=== PATIENT | female | born 1980 | race Caucasian/White ===

== ENCOUNTER 2018-05-03 07:46 | Emergency (ER) | payer OTHER, SELFPAY ==
[2018-05-03 07:57] VITALS: BP 127/98; PULSE 72; RESP 14; TEMP 36.4; O2SAT 97
--- NOTE | 2018-05-03 08:40 | DI.RAD_ITS ---
SYMPTOMS/DIAGNOSIS: PAIN, SWELLING, INJURY RIGHT FOOT: There is some mild soft tissue swelling over the dorsolateral portion of the foot. No bony or joint abnormality is demonstrated. RIGHT ANKLE There is no evidence of a fracture or dislocation.
--- NOTE | 2018-05-03 08:42 | W.ED.GENAD ---
Discharge Plan Disposition Patient Disposition: HOME Discharge Details Chief Complaint: Orthopedic Clinical Impression: Sprain of foot, right Primary Care Provider: Nadine Mcduffie ED Provider: Stephane Ruiz Home Meds and New Rx's Prescriptions: Continue ibuprofen 200 MG tablet 400 mg PO PRN PRNRF: 0 venlafaxine 225 MG tablet extended release 24hr 150 mg PO DAILY RF: 0 levothyroxine 25 MCG tablet 50 mcg PO DAILY RF: 0 lamotrigine [Lamictal] 150 mg Tablet 150 mg PO BID RF: 0 glatiramer [Copaxone] 40 mg/mL Syringe 40 mg SUBCUT DIRECTED RF: 0 Discharge Instructions Instructions: Foot Sprain (ED) Additional Instructions: I suspect you sustained sprain to right foot and ankle. Please use walking boot and walker for the next 1 week. Take ibuprofen 600 mg every 6 hours as needed for pain. Take Tylenol 650 mg every 6 hours as needed for pain. If pain persists or worsens, please follow-up with orthopedics. Return to the ER for any worsening or new concerning symptoms. Referrals: [facility] [Provider Group] Discharge Data Discharge Date/Time-TO BE ENTERED AT DEPARTURE: 05/03/18 10:25 Medical Decision Making 37yo f with MS and intermittent right lower externally weakness, here with right ankle injury after fall last night. Neurovascular intact. Tender to palpation dorsal lateral foot. No significant tenderness over fifth metatarsal. Some ankle swelling and tenderness lateral malleolus. No proximal fibular tenderness. Plan to treat pain with Tylenol. Patient took ibuprofen prior to arrival. xray of right ankle and foot interpreted by radiology: negative for fracture. Suspect sprain of foot/ankle. Will place in walking boot. Given patient's chronic right-sided weakness, she is not a candidate for crutches. She would benefit from walker to assist with this injury. I will have PT see the patient here in the emerge department to assist her with activating to walker use. HPI General Mode of arrival: ambulatory. Date/Time Provider Initiated Documentation: 05/03/18 08:04. Limitations to Documentation: no limitations. Information obtained by: patient. HPI Narrative: 37yo f with MS and intermittent right lower externally weakness, here with right ankle injury after fall last night. Pain is moderate. Pain worse on ambulation. Pain localized to right lateral ankle and foot. No assoc numbness. Related Data Home Medications Medication Instructions Recorded Confirmed ibuprofen 400 mg PO PRN PRN 04/06/15 05/03/18 venlafaxine 150 mg PO DAILY 04/06/15 05/03/18 levothyroxine 50 mcg PO DAILY 01/30/16 05/03/18 glatiramer [Copaxone] 40 mg SUBCUT DIRECTED 05/03/18 05/03/18 lamotrigine [Lamictal] 150 mg PO BID 05/03/18 05/03/18 Allergies Allergy/AdvReac Type Severity Reaction Status Date / Time Penicillins Allergy Verified 01/30/16 13:23 Sulfa (Sulfonamide Allergy Unverified 01/30/16 07:54 Antibiotics) Opioids - Morphine Analogues AdvReac Unknown agitation Unverified 01/30/16 07:54 with narcotic pain meds clindamycin AdvReac Diarrhea Unverified 01/30/16 07:54 General Stated Complaint: Orthopedic LIZ: 4 Review of Systems Musculoskeletal Reports as per HPI Neurologic Reports as per HPI PFS Medical History Multiple sclerosis (Chronic) Social History Smoking/Tobacco Use Status: Current every day Surgical History Cholecystectomy (01/30/16) Exam Const General: cooperative and no acute distress Cardio Rate: regular rate and not tachycardic Rhythm: regular rhythm Skin General skin exam: no rashes or lesions noted Neuro General: alert, awake, oriented x3 and tone normal Extrem General: no edema Right lower extremity: lower leg Details: normal to inspection, ankle Details: tenderness Location: of the lateral malleolus, swelling Details: laterally (mild) and normal ROM and foot Details: tenderness Location: of the dorsal foot Location: laterally; not of the base of the 5th metatarsal and motor-sensory exam Details: light-touch normal Course Vital Signs Temperature 36.4 C L 05/03/18 07:57 Pulse 72 05/03/18 07:57 Respiratory Rate 14 05/03/18 07:57 Blood Pressure 127/98 H 05/03/18 07:57 Pulse Oximetry 97 05/03/18 07:57 Temperature 36.4 C L 05/03/18 07:57 Temperature Source Temporal Artery Scan 05/03/18 07:57 Pulse 72 05/03/18 07:57 Respiratory Rate 14 05/03/18 07:57 Respiratory Effort Non-Labored 05/03/18 07:58 Blood Pressure 127/98 H 05/03/18 07:57 Blood Pressure Position Sitting 05/03/18 07:57 Pulse Oximetry 97 05/03/18 07:57 Oxygen Delivery Method Room Air 05/03/18 07:57 Oxygen Flow Rate 0 05/03/18 07:57 Pain Level 6 05/03/18 08:03
--- NOTE | 2018-05-03 09:30 | PDOC.ERCMPRO ---
Care Management Progress Note 05/03-Dr. Delonte Ruiz requested assistance with a walker for Aria. Met with Aria, her Dad is here with her. Aria states she lives with her and children. She was trick or treating and tripped, fell. Aria states when she woke up this morning she could not bear weight. Aria has MS, and works full-time in [employer] in [place]. Discussed a walker. Aria is a little hesitant about a walker. She just doesn't want to use a walker, she wants to remain as independent as possible. Explained that it would be only temporary. Her dad discussed it with her as well. Aria is in agreement to try the walker. Discussed Physical Therapy coming for a one time consult to assist with walker training and height. Dr. Delonte Ruiz in agreement and will order. This CM will contact Physical Therapy to come to the ED.
--- NOTE | 2018-05-03 09:40 | CMPROGNOTE_ITS ---
Care Management Progress Note 05/03-Dr. Delonte Ruiz requested assistance with a walker for Aria. Met with Aria, her Dad is here with her. Aria states she lives with her and children. She was trick or treating and tripped, fell. Aria states when she woke up this morning she could not bear weight. Aria has MS, and works full-time in [place] in [employer]. Discussed a walker. Aria is a little hesitant about a walker. She just doesn't want to use a walker, she wants to remain as independent as possible. Explained that it would be only temporary. Her dad discussed it with her as well. Aria is in agreement to try the walker. Discussed Physical Therapy coming for a one time consult to assist with walker training and height. Dr. Delonte Ruiz in agreement and will order. This CM will contact Physical Therapy to come to the ED.
[2018-05-03] MEDS: Acetaminophen 325 MG TAB 650 MG PO (09:47)
--- NOTE | 2018-05-03 09:57 | ED.GENADUL_ITS ---
Discharge Plan Disposition Patient Disposition: HOME Discharge Details Chief Complaint: Orthopedic Clinical Impression: Sprain of foot, right Primary Care Provider: Nadine Mcduffie ED Provider: Stephane Ruiz Home Meds and New Rx's Prescriptions: Continue ibuprofen 200 MG tablet 400 mg PO PRN PRNRF: 0 venlafaxine 225 MG tablet extended release 24hr 150 mg PO DAILY RF: 0 levothyroxine 25 MCG tablet 50 mcg PO DAILY RF: 0 lamotrigine [Lamictal] 150 mg Tablet 150 mg PO BID RF: 0 glatiramer [Copaxone] 40 mg/mL Syringe 40 mg SUBCUT DIRECTED RF: 0 Discharge Instructions Instructions: Foot Sprain (ED) Additional Instructions: I suspect you sustained sprain to right foot and ankle. Please use walking boot and walker for the next 1 week. Take ibuprofen 600 mg every 6 hours as needed for pain. Take Tylenol 650 mg every 6 hours as needed for pain. If pain persists or worsens, please follow-up with orthopedics. Return to the ER for any worsening or new concerning symptoms. Referrals: [facility] [Provider Group] Discharge Data Discharge Date/Time-TO BE ENTERED AT DEPARTURE: 05/03/18 10:25 Medical Decision Making 37yo f with MS and intermittent right lower externally weakness, here with right ankle injury after fall last night. Neurovascular intact. Tender to palpation dorsal lateral foot. No significant tenderness over fifth metatarsal. Some ankle swelling and tenderness lateral malleolus. No proximal fibular tenderness. Plan to treat pain with Tylenol. Patient took ibuprofen prior to arrival. xray of right ankle and foot interpreted by radiology: negative for fracture. Suspect sprain of foot/ankle. Will place in walking boot. Given patient's chronic right-sided weakness, she is not a candidate for crutches. She would benefit from walker to assist with this injury. I will have PT see the patient here in the emerge department to assist her with activating to walker use. HPI General Mode of arrival: ambulatory . Date/Time Provider Initiated Documentation: 05/03/18 08:04 . Limitations to Documentation: no limitations . Information obtained by: patient . HPI Narrative: 37yo f with MS and intermittent right lower externally weakness, here with right ankle injury after fall last night. Pain is moderate. Pain worse on ambulation. Pain localized to right lateral ankle and foot. No assoc numbness. Related Data Home Medications Medication Instructions Recorded Confirmed ibuprofen 400 mg PO PRN PRN 04/06/15 05/03/18 venlafaxine 150 mg PO DAILY 04/06/15 05/03/18 levothyroxine 50 mcg PO DAILY 01/30/16 05/03/18 glatiramer [Copaxone] 40 mg SUBCUT DIRECTED 05/03/18 05/03/18 lamotrigine [Lamictal] 150 mg PO BID 05/03/18 05/03/18 Allergies Allergy/AdvReac Type Severity Reaction Status Date / Time Penicillins Allergy Verified 01/30/16 13:23 Sulfa (Sulfonamide Allergy Unverified 01/30/16 07:54 Antibiotics) Opioids - Morphine Analogues AdvReac Unknown agitation Unverified 01/30/16 07:54 with narcotic pain meds clindamycin AdvReac Diarrhea Unverified 01/30/16 07:54 General Stated Complaint: Orthopedic LIZ: 4 Review of Systems Musculoskeletal Reports as per HPI Neurologic Reports as per HPI PFS Medical History Multiple sclerosis (Chronic) Social History Smoking/Tobacco Use Status: Current every day Surgical History Cholecystectomy (01/30/16) Exam Const General: cooperative and no acute distress Cardio Rate: regular rate and not tachycardic Rhythm: regular rhythm Skin General skin exam: no rashes or lesions noted Neuro General: alert, awake, oriented x3 and tone normal Extrem General: no edema Right lower extremity: lower leg Details: normal to inspection, ankle Details: tenderness Location: of the lateral malleolus, swelling Details: laterally (mild ) and normal ROM and foot Details: tenderness Location: of the dorsal foot Location: laterally; not of the base of the 5th metatarsal and motor-sensory exam Details: light-touch normal Course Vital Signs Temperature 36.4 C L 05/03/18 07:57 Pulse 72 05/03/18 07:57 Respiratory Rate 14 05/03/18 07:57 Blood Pressure 127/98 H 05/03/18 07:57 Pulse Oximetry 97 05/03/18 07:57 Temperature 36.4 C L 05/03/18 07:57 Temperature Source Temporal Artery Scan 05/03/18 07:57 Pulse 72 05/03/18 07:57 Respiratory Rate 14 05/03/18 07:57 Respiratory Effort Non-Labored 05/03/18 07:58 Blood Pressure 127/98 H 05/03/18 07:57 Blood Pressure Position Sitting 05/03/18 07:57 Pulse Oximetry 97 05/03/18 07:57 Oxygen Delivery Method Room Air 05/03/18 07:57 Oxygen Flow Rate 0 05/03/18 07:57 Pain Level 6 05/03/18 08:03
--- NOTE | 2018-05-03 10:23 | PT.INIE ---
Date of service: 05/03/18 Time of Service: 10:23 PT Notes Inpatient Physical Therapy Evaluation Date: 05/03/18 Referring Doctor: Stephane Ruiz PT Orders: PT CONSULT: walker use Precautions: WBAT R LE Patient Profile/Admitting Diagnosis: Pt is a 37yr old female presenting in the Emergency Department with right ankle sprain after falling last night trick or treating PMHX: chronic right sided weakness Social History/Home Situation: Lives with and children. Baseline mobility independent gait with no deivce, indpendent with ADLS, works Equipment Owned/DME: none Subjective: Pt lying on gurney bed with R LE elevated. Agreeable to PT Consult. Objective: Mental Status: a& O x3 Pain: c/o pain right ankle not rated, reports tingling in right ankle Bed Mobility/Transfers: Supine-sit: independent Sit-stand: independent Stand-sit: independent Sit-supine: independent Gait: Pt fitted with R LE walking boot and instructed in how to don/doff boot. Pt instructed to wear walking boot with all mobility, WBAT R LE. Pt issued and fitted with FWW and instructed in use of FWW for gait with walking boot on. Pt performed step-to gait 25ftx2 WBAT R LE with good safety and balance with use of walker. Balance: Static Sitting: normal Dynamic Sitting: normal Static Standing: fair Dynamic Standing: fair Special Tests: Mobility Limitations Standardized Measure [facility] AM-PAC 6 clicks Basic Mobility Inpatient Short Form: Raw Score: 20 Standardized Score: 47.67 CMS Score: 35.83% [facility] Modifier: CJ Informed Consent/Education: Patient instructed in purpose of PT consult and plan of care. Assessment: Pt is a 37yr old female presenting in the Emergency Department with right ankle sprain after falling last night trick or treating in setting of chronic right sided weakness. Patient presents with the following impairment level findings: pain and edema in right ankle with weight bearing activities, resulting in decreased static and dynamic standing balance, requiring her to use a FWW for gait stability to prevent falls and unload R LE for weight bearing. recommended walking boot for increased stability of ankle. Due to chronic right sided weakness, pt will require a FWW for home gait mobility instead of crutches to avoid increasing risk of falls during recovery process. Pt seen for one time consult for gait training and instruction in use of adaptive equipment. Pt to be discharged to home with MD instructions. Impairments are contributing to the following functional limitations: AMPAC score CMS Score: 35.83% Patient is assessed as a Low 59011 complexity based on the following: History: see above Examination: see above Presentation: stable Decision Making: AMPAC score CMS Score: 35.83% Goals: not applicable Plan of Care/Treatment Plan: PT eval only DISCHARGE RECOMMENDATIONS: home with FWW and walking boot R LE TREATMENT CODE/TIME: 24 IE 10:25 G Codes in the area mobility of walking and moving around: current status [id number] ; projected status GP [id number]. Discharge status (if discharging) GP [id number] based on AMPAC scores Juju Parada PT
--- NOTE | 2018-05-03 10:35 | IN_ITS ---
Date of service: 05/03/18 Time of Service: 10:23 PT Notes Inpatient Physical Therapy Evaluation Date: 05/03/18 Referring Doctor: Stephane Ruiz PT Orders: PT CONSULT: walker use Precautions: WBAT R LE Patient Profile/Admitting Diagnosis: Pt is a 37yr old female presenting in the Emergency Department with right ankle sprain after falling last night trick or treating PMHX: chronic right sided weakness Social History/Home Situation: Lives with and children. Baseline mobility independent gait with no deivce, indpendent with ADLS, works Equipment Owned/DME: none Subjective: Pt lying on gurney bed with R LE elevated. Agreeable to PT Consult. Objective: Mental Status: a& O x3 Pain: c/o pain right ankle not rated, reports tingling in right ankle Bed Mobility/Transfers: Supine-sit: independent Sit-stand: independent Stand-sit: independent Sit-supine: independent Gait: Pt fitted with R LE walking boot and instructed in how to don/doff boot. Pt instructed to wear walking boot with all mobility, WBAT R LE. Pt issued and fitted with FWW and instructed in use of FWW for gait with walking boot on. Pt performed step-to gait 25ftx2 WBAT R LE with good safety and balance with use of walker. Balance: Static Sitting: normal Dynamic Sitting: normal Static Standing: fair Dynamic Standing: fair Special Tests: Mobility Limitations Standardized Measure [facility] AM-PAC 6 clicks Basic Mobility Inpatient Short Form: Raw Score: 20 Standardized Score: 47.67 CMS Score: 35.83% [facility] Modifier: CJ Informed Consent/Education: Patient instructed in purpose of PT consult and plan of care. Assessment: Pt is a 37yr old female presenting in the Emergency Department with right ankle sprain after falling last night trick or treating in setting of chronic right sided weakness. Patient presents with the following impairment level findings: pain and edema in right ankle with weight bearing activities, resulting in decreased static and dynamic standing balance, requiring her to use a FWW for gait stability to prevent falls and unload R LE for weight bearing. recommended walking boot for increased stability of ankle. Due to chronic right sided weakness, pt will require a FWW for home gait mobility instead of crutches to avoid increasing risk of falls during recovery process. Pt seen for one time consult for gait training and instruction in use of adaptive equipment. Pt to be discharged to home with MD instructions. Impairments are contributing to the following functional limitations: AMPAC score CMS Score: 35.83% Patient is assessed as a Low 81107 complexity based on the following: History: see above Examination: see above Presentation: stable Decision Making: AMPAC score CMS Score: 35.83% Goals: not applicable Plan of Care/Treatment Plan: PT eval only DISCHARGE RECOMMENDATIONS: home with FWW and walking boot R LE TREATMENT CODE/TIME: 24 IE 10:25 G Codes in the area mobility of walking and moving around: current status [id number] ; projected status GP [id number]. Discharge status (if discharging) GP [id number] based on AMPAC scores Juju Parada PT
== END 2018-05-03 10:25 | disposition home or self-care (01) ==
LOC: ER 10:44
PROVIDERS: Emergency Provider Student in an Organized Health Care Education/Training Program; PCP Family Medicine
DX: S93.601A Unspecified sprain of right foot, initial encounter (principal); G35 Multiple sclerosis; W01.0XXA Fall on same level from slipping, tripping and stumbling without subsequent striking against object, initial encounter
CPT/HCPCS: 80053; 86900; 86901; 97161; 99283; 73610; 73630; 85025; 99282; L4361

== ENCOUNTER 2019-08-05 11:30 | Outpatient (REF) | payer BC, SELFPAY ==
--- NOTE | 2019-08-05 10:40 | PAPFT_PTH ---
PATIENT: Aria Waller LOC: [facility]#:[id number] AGE/SX: 38/F ROOM: RE08/05/[address]: Nadine Mcduffie : 1980 BED: DIS: 08/05/2019 SPEC #: [id number] RECD: 08/06/19 12:37 STATUS: FRANK REQ #: [id number] NATO: 08/05/19 10:[address]: Nadine Mcduffie DEPT: [facility] Cytology RECD BY: Irina Mcarthur Tissues: 1 - CX/ENDOCX FOR PAP SMEARS Procedures: PAP THIN PREP/UVM Screening HPV DNA PROBE Comments: [id number]
[2019-08-05 22:12] LABS: ALT 48 U/L (14-59); AST 21 U/L (15-37); Albumin 3.4 g/dL (3.4-5.0); Alkaline Phosphatase 71 U/L (46-116); Anion Gap 8.1 mmol/L (3-11); BUN 9 mg/dL (7-18); Bilirubin, Total 0.2 mg/dL (0.2-1.0); CO2 28.9 mmol/L (21.0-32.0); CREATININE 0.82 mg/dL (0.55-1.02); Calculated LDL 176 mg/dL (<100); Chloride 103 mmol/L (98-107); Cholesterol 224 mg/dL (<200); Glucose 96 mg/dL (74-106); HDL Cholesterol 28 mg/dL (40-60); Sodium 140 mmol/L (136-145); TSH (W/Ref FT4) 4.57 uIU/mL (0.36-3.74); Total Protein 6.9 g/dL (6.4-8.2); Triglyceride 102 mg/dL (<150)
== END 2019-08-05 11:50 ==
LOC: NCHCN 11:30
PROVIDERS: PCP Family Medicine; Visit Provider Family Medicine
DX: Z00.00 Encounter for general adult medical examination without abnormal findings (principal); E03.9 Hypothyroidism, unspecified; R53.83 Other fatigue; Z12.4 Encounter for screening for malignant neoplasm of cervix; Z11.51 Encounter for screening for human papillomavirus (HPV); Z01.419 Encounter for gynecological examination (general) (routine) without abnormal findings
CPT/HCPCS: 80053; 80061; 88142; 84439; 84443; 87624

== ENCOUNTER 2019-08-10 14:04 | Emergency (ER) | payer BC, SELFPAY ==
[2019-08-10 14:09] VITALS: BP 115/80; PULSE 95; RESP 16; TEMP 36.5; O2SAT 96
--- NOTE | 2019-08-10 14:32 | W.ED.GENAD ---
Discharge Plan Disposition Patient Disposition: HOME Condition: Stable Discharge Details Chief Complaint: AnimalBite Clinical Impression: Dog bite Primary Care Provider: Nadine Mcduffie ED Provider: Inez Méndez Home Meds and New Rx's Prescriptions: New amoxicillin-pot clavulanate [Augmentin] 875-125 mg tablet 1 tab PO BID 10 Days Qty: 20 RF: 0 mupirocin 2 % ointment 1 applic TP BID Qty: 15 RF: 0 No Action venlafaxine [Effexor XR] 150 mg Capsule,Extended Release 24hr 150 mg PO DAILY AM RF: 0 lamotrigine 25 mg Tablet 75 mg PO BID RF: 0 glatiramer [Copaxone] 40 mg/mL Syringe 40 mg SUBCUT RF: 0 Discharge Instructions Instructions: Animal Bite (ED) Additional Instructions: Apply the topical antibiotic ointment to the affected area twice daily. If you decide to take the oral antibiotics, take them until finished. You can also eat yogurt or take probiotics while taking antibiotics to decrease risk of vomiting and diarrhea. Cover wound with bandage if risk of contamination. Keep wound open to air if you are resting at home to now the edges to dry and heal. Follow-up with your primary care doctor within the next week for wound reevaluation. Return to the emergency department if you develop any worsening or concerning symptoms such as fever, increased pain, redness or swelling. Discharge Data Discharge Physician: Inez Méndez Medical Decision Making 38-year-old female presents for provoked dog bite to abdomen sustained from her dog at home prior to arrival. There are 2 superficial lacerations noted to the right lower quadrant. There is no surrounding cellulitis, abscess, bleeding. She is afebrile and appears nontoxic. She is up-to-date on her tetanus. Dogs are up-to-date on vaccinations. Area was cleaned and topical antibiotic ointment and dressing applied. Patient states she is hesitant with taking oral antibiotics due to risk of GI symptoms which usually is significantly for her. Advised that we recommend Augmentin as standard treatment, but will send with a prescription for Bactroban to use at this time. She states she will start Augmentin if needed. She was advised to take probiotics or eat yogurt if she takes the oral antibiotics. She was advised to follow-up with her primary care doctor for wound recheck and to return here with any concerns. Medical Records Medical records reviewed: Yes I reviewed the patient's medical records. HPI General Mode of arrival: ambulatory. Date/Time Provider Initiated Documentation: 08/10/19 14:07. Limitations to Documentation: no limitations. Information obtained by: patient. History of Present Illness 38 year old F presents to the emergency department with the chief complaint of Dog bite to right lower abdomen, Patient started experiencing this hour(s) (1) and it has been constant. No relieving factors improve symptom(s), No exacerbating factors reported . Patient notes denies fever/chills. Patient did receive the following treatments prior to arrival, none Related Data Home Medications Medication Instructions Recorded Confirmed amoxicillin-pot clavulanate 1 tab PO BID 10 Days #20 tab 08/10/19 [Augmentin] glatiramer [Copaxone] 40 mg SUBCUT 08/10/19 lamotrigine 75 mg PO BID 08/10/19 08/10/19 mupirocin 1 applic TP BID #15 gm 08/10/19 venlafaxine [Effexor XR] 150 mg PO DAILY AM 08/10/19 08/10/19 Previous Rx's Medication Instructions Recorded amoxicillin-pot clavulanate 1 tab PO BID 10 Days #20 tab 08/10/19 [Augmentin] mupirocin 1 applic TP BID #15 gm 08/10/19 Allergies Allergy/AdvReac Type Severity Reaction Status Date / Time clindamycin AdvReac Unverified 08/10/19 14:15 hydrocodone [From Vicodin] AdvReac Unverified 08/10/19 14:14 levetiracetam [From Keppra] AdvReac Unverified 08/10/19 14:18 Sulfa (Sulfonamide AdvReac Unverified 08/10/19 14:15 Antibiotics) General Stated Complaint: AnimalBite LIZ: 4 Review of Systems All systems reviewed & are unremarkable except as noted in HPI and below Constitutional Constitutional: Reports as per HPI, Denies chills and Denies fever(s) Eyes Eyes: Denies blurry vision ENT Ears, Nose, Mouth, and Throat: Denies dizziness, Denies sore throat and Denies throat swelling Cardiovascular Cardiovascular: Denies chest pain and Denies dyspnea Respiratory Respiratory: Denies cough and Denies dyspnea Gastrointestinal Gastrointestinal: Denies abdominal pain, Denies diarrhea and Denies vomiting Genitourinary Genitourinary: Denies hematuria and Denies dysuria Musculoskeletal Musculoskeletal: Denies back pain and Denies numbness Integumentary/Breasts Skin/Breast: Denies lesions and Denies rash Neurologic Neurologic: Denies dizziness, Denies focal weakness and Denies numbness Allergic/Immunologic Allergic/Immunologic: Denies throat swelling [facility] Medical History Multiple sclerosis (Chronic) Social History Alcohol Intake: current Alcohol Intake frequency: holidays/special occasions only Drug use: Occasionally Substance use type: marijuana Do you feel safe at home: Yes Do you feel safe in your relationship?: Yes Exam Const General: cooperative, healthy appearing and no acute distress HENMT Head: normal to inspection Mouth: oral mucosae normal Eyes General: appearance normal, both eyes and all related structures Neck Neck: normal visual inspection Resp Effort & Inspection: normal respiratory effort and able to speak in complete sentences Cardio Rate: regular rate GI Other: There is no surrounding induration, fluctuance, erythema, edema, ecchymosis or foreign bodies noted. Abdomen image: 1. 2. Two superficial lacerations noted on R lower quadrant of abdomen. Skin General skin exam: no rashes or lesions noted Neuro General: alert, awake and oriented x3 Motor: muscle tone normal throughout Extrem General: normal to inspection and full ROM Psych Appearance: grossly normal Affect: normal affect Course Vital Signs Vital signs: Vital Signs Temperature 97.7 F 08/10/19 14:09 Pulse 95 H 08/10/19 14:09 Respiratory Rate 16 08/10/19 14:09 Blood Pressure 115/80 08/10/19 14:09 Pulse Oximetry 96 08/10/19 14:09 Temperature 97.7 F 08/10/19 14:09 Temperature Source Temporal Artery Scan 08/10/19 14:09 Pulse 95 H 08/10/19 14:09 Respiratory Rate 16 08/10/19 14:09 Respiratory Effort Non-Labored 08/10/19 14:20 Blood Pressure 115/80 08/10/19 14:09 Blood Pressure Position Sitting 08/10/19 14:09 Pulse Oximetry 96 08/10/19 14:09 Oxygen Delivery Method Room Air 08/10/19 14:09 Oxygen Flow Rate 0 08/10/19 14:09 Pain Level 4 08/10/19 14:09
--- NOTE | 2019-08-10 14:46 | NUR.NOTE ---
Nursing Note: Animal Bite Report faxed to [facility] Clerk. . Sadie Verma.
== END 2019-08-10 14:40 | disposition home or self-care (01) ==
PROVIDERS: Emergency Provider Physician Assistant; PCP Family Medicine
DX: S31.153A Open bite of abdominal wall, right lower quadrant without penetration into peritoneal cavity, initial encounter (principal); W54.0XXA Bitten by dog, initial encounter; G35 Multiple sclerosis
CPT/HCPCS: 99283

== ENCOUNTER 2019-11-28 13:41 | Emergency (ER) | payer OTHER, SELFPAY ==
[2019-11-28 13:49] VITALS: BP 129/80; PULSE 114; RESP 16; TEMP 36.5; O2SAT 96
--- NOTE | 2019-11-28 14:00 | DI.RAD_ITS ---
EXAM: XR PORTABLE CHEST AP CLINICAL HISTORY: cough/fever TECHNIQUE: 2D digital imaging was performed. COMPARISON: No exams were available for comparison FINDINGS: LUNGS: Clear. No pleural abnormality seen. HEART: Normal. MEDIASTINUM: Normal. OTHER FINDINGS: None. IMPRESSION: No acute pulmonary findings. DATA REPOSITORY: RADIATION DOSE DELIVERED:
[2019-11-28 15:18] VITALS: BP 118/65; PULSE 99; RESP 14; TEMP 37.2; O2SAT 98
--- NOTE | 2019-11-28 15:20 | ED.GENADUL_ITS ---
Discharge Plan Disposition Patient Disposition: HOME Condition: Stable Discharge Details Chief Complaint: Fever Clinical Impression: Myalgia, Cough Primary Care Provider: Nadine Mcduffie ED Provider: Mark Benavidez Home Meds and New Rx's Prescriptions: Continued ibuprofen 200 MG tablet 400 mg PO PRN PRNRF: 0 venlafaxine 225 MG tablet extended release 24hr 150 mg PO DAILY RF: 0 levothyroxine 25 MCG tablet 50 mcg PO DAILY RF: 0 gabapentin 100 mg capsule 100 mg PO HS RF: 0 baclofen 5 mg Tablet 2.5 mg PO PRN PRNRF: 0 lamotrigine [Lamictal] 150 mg Tablet 150 mg PO BID RF: 0 glatiramer [Copaxone] 40 mg/mL Syringe 40 mg SUBCUT DIRECTED RF: 0 Discharge Instructions Instructions: Acute Cough (ED) Additional Instructions: Chest x-ray is unremarkable, and you have no fever here in the ER. I have set you up for COVID testing tomorrow. As we discussed, I recommend that you do not go to work until your test comes back, likely Monday at the latest and would need to be negative. You will receive a call tomorrow for your COVID testing appointment. In the meantime, rest, plenty of fluids, wibp-slj-neolcty medications for symptomatic control. Please watch for new or worsening symptoms and return to the ER for any concerns. I do recommend reaching out your primary care provider by phone tomorrow for prompt outpatient reevaluation Stand Alone Forms: POSITIVE COVID-19/TO BE TESTED Medical Decision Making 38-year-old female with history of MS presenting for fever, chills, dry cough, body aches, headache that began sometime overnight. She used temperature strips at work and noted her temp to be 101. 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 She appears well, nontoxic. Lungs are clear to auscultation, speaks in full sentences. Triage heart rate was 114 however upon my evaluation she was 96. She denies any pain or swelling in her legs. We discussed our options. Will obtain a 1 view chest x-ray in room 8 as she is a person of interest and will set up COVID testing tomorrow. She is comfortable with this plan. As above, she appears well, nontoxic and does not meet criteria for hospitalization. Patient is comfortable with this plan Chest x-ray was read by me as negative. I did discuss the case with Dr. Ruiz however he did not see the patient here in the ER. Patient has no additional questions or concerns and is comfortable discharge. O2 sats are 98% upon discharge, heart rate in the 90s. She remains afebrile Medical Records Medical records reviewed: Yes I reviewed the patient's medical records. Imaging Data Radiologic Study: Attestation: I personally reviewed and interpreted this imaging study as follows: Imaging: X-Ray Radiologist's impression: Negative, chest HPI General Mode of arrival: ambulatory . Date/Time Provider Initiated Documentation: 11/28/19 14:06 . Limitations to Documentation: no limitations . Information obtained by: patient . HPI Narrative: This is a 38-year-old female with history of MS, presenting to the ER for less than 24-hour history of fever, chills, body aches, mild dry cough, dull global headache. She reports that she was at work today and used temperature strips that were any first-aid kit, T-max of 101. Patient reports that her has diabetes and she is primarily concerned about COVID. 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 She reports that her cough is not productive. She did take Motrin today it has helped with some of her symptoms. She denies any visual changes, neck pain, recent travel or known sick exposure, abdominal pain, nausea, vomiting, skin rash. She reports that she contacted her primary care office but they have not called her back yet so I got myself all worked up and came straight to the ER Related Data Home Medications Medication Instructions Recorded Confirmed ibuprofen 400 mg PO PRN PRN 04/06/15 11/28/19 venlafaxine 150 mg PO DAILY 04/06/15 11/28/19 levothyroxine 50 mcg PO DAILY 01/30/16 11/28/19 glatiramer [Copaxone] 40 mg SUBCUT DIRECTED 05/03/18 11/28/19 lamotrigine [Lamictal] 150 mg PO BID 05/03/18 11/28/19 baclofen 2.5 mg PO PRN PRN 11/28/19 11/28/19 gabapentin 100 mg PO HS 11/28/19 11/28/19 Allergies Allergy/AdvReac Type Severity Reaction Status Date / Time Penicillins Allergy Verified 11/28/19 13:59 Sulfa (Sulfonamide Allergy Unverified 11/28/19 13:59 Antibiotics) Opioids - Morphine Analogues AdvReac Unknown agitation Unverified 11/28/19 13:59 with narcotic pain meds clindamycin AdvReac Diarrhea Unverified 11/28/19 13:59 General Stated Complaint: Fever LIZ: 3 Review of Systems Constitutional Constitutional: Reports chills, Denies fatigue and Reports fever(s) Eyes Eyes: Denies eye discharge ENT Ears, Nose, Mouth, and Throat: Denies otalgia and Denies sore throat Cardiovascular Cardiovascular: Denies chest pain and Denies dyspnea Respiratory Respiratory: Reports cough and Denies dyspnea Gastrointestinal Gastrointestinal: Denies abdominal pain, Denies nausea and Denies vomiting Genitourinary Genitourinary: Denies dysuria Musculoskeletal Musculoskeletal: Denies back pain, Reports myalgias, Denies numbness and Denies tingling Integumentary/Breasts Skin/Breast: Denies rash Neurologic Neurologic: Denies numbness and Denies tingling Endocrine Endocrine: Denies fatigue [facility] Medical History Multiple sclerosis (Chronic) Surgical History Cholecystectomy (01/30/16) Social History Smoking/Tobacco Use Status: Current every day Alcohol Intake: current Alcohol Intake frequency: a few times a month Drug use: Occasionally Substance use type: marijuana Details: every other day for MS Do you feel safe at home: Yes Do you feel safe in your relationship?: Yes Exam Const General: cooperative, healthy appearing, comfortable and no acute distress Orientation: alert, awake and oriented x3 HENMT Head: normal to inspection, normocephalic and atraumatic Ears: external ears normal, TM's normal bilaterally and EAC's normal Face and sinus: normal facial exam Mouth: moist mucous membranes Throat: posterior oropharynx normal Eyes Conjunctivae: conjunctivae normal Neck Neck: normal visual inspection, full ROM, meningismus present, trachea midline, supple and nontender Resp Effort & Inspection: normal respiratory effort, able to speak in complete sent ences and no cough Auscultation: clear to auscultation bilaterally Cardio Rate: regular rate Rhythm: regular rhythm GI Palpation: soft and nontender Back/Spine/Pelvis Back: No back tenderness Skin General skin exam: no rashes or lesions noted Neuro General: patient alert, patient awake, moves all extremities and no focal motor deficits Motor: muscle tone normal throughout Sensory Exam: no sensory deficits noted Psych Appearance: grossly normal Mental Status: mental status grossly normal Course Vital Signs Vital signs: Vital Signs Temperature 36.5 C 11/28/19 13:49 Pulse 114 H 11/28/19 13:49 Respiratory Rate 16 11/28/19 13:49 Blood Pressure 129/80 11/28/19 13:49 Pulse Oximetry 96 11/28/19 13:49 Temperature 36.5 C 11/28/19 13:49 Temperature Source Skin 11/28/19 13:49 Pulse 114 H 11/28/19 13:49 Respiratory Rate 16 11/28/19 13:49 Respiratory Effort 11/28/19 14:02 Blood Pressure 129/80 11/28/19 13:49 Blood Pressure Position Sitting 11/28/19 13:49 Pulse Oximetry 96 11/28/19 13:49 Oxygen Delivery Method Room Air 11/28/19 13:49 Oxygen Flow Rate 0 11/28/19 13:49 Pain Level 7 11/28/19 13:49
[2019-11-28 15:45] VITALS: BP 118/65; PULSE 99; RESP 14; TEMP 37.2; O2SAT 98
== END 2019-11-28 15:48 | disposition home or self-care (01) ==
PROVIDERS: Emergency Provider Physician Assistant; PCP Family Medicine
DX: M79.10 Myalgia, unspecified site (principal); R05 Cough; R50.9 Fever, unspecified; G35 Multiple sclerosis
CPT/HCPCS: 99283; 71045; 99284

== ENCOUNTER 2019-11-28 21:31 | Emergency (ER) | payer OTHER, SELFPAY ==
[2019-11-28] VITALS (7 sets, daily range): BP systolic 112–140; BP diastolic 63–72; PULSE 86–100; RESP 16–19; TEMP 37.4–39; O2SAT 93–95
--- NOTE | 2019-11-28 21:54 | ED.GENADUL_ITS ---
Discharge Plan Disposition Patient Disposition: HOME Condition: Good Discharge Details Chief Complaint: Recheck Clinical Impression: Fever, Viral syndrome Primary Care Provider: Nadine Mcduffie ED Provider: Fausto Maciel [place] Meds and New Rx's Prescriptions: New promethazine 25 mg tablet 25 mg PO Q6H PRN (Reason: nausea and vomiting) Qty: 10 RF: 0 Continued venlafaxine [Effexor XR] 150 mg Capsule,Extended Release 24hr 150 mg PO DAILY AM RF: 0 lamotrigine 25 mg Tablet 75 mg PO BID RF: 0 glatiramer [Copaxone] 40 mg/mL Syringe 40 mg SUBCUT RF: 0 Discharge Instructions Instructions: Fever in Adults (ED), Viral Syndrome (ED) Additional Instructions: It will be important for you to self isolate until feeling well. You will need follow-up with primary care before returning to work. COVID testing tomorrow as scheduled. Alternate Tylenol with Motrin to control fever and discomfort. Push fluids to stay hydrated. Phenergan if needed for nausea vomiting. Return to ED for mental status changes, lethargy, shortness of breath, chest pain, persistent vomiting, other concerns or problems. Referrals: Nadine Mcduffie [Primary Care Provider] - Medical Decision Making Patient returns with continued fever, cough, headache. Headache is not severe but will not go away. Normal mental status. No meningeal signs on exam. Doubt meningitis/encephalitis. Has cough and now nausea with dry heaves. Continues to have good pulse oximetry. Will place IV to give some fluids. Will check basic labs. Will give Tylenol and Phenergan and reassess. She does not look toxic though she does look ill. At this point she does not appear to require admission. Patient laboratory studies unremarkable. White count is normal. She does have some lymphopenia. Chemistries with slightly low potassium. Essentially normal LFTs. Urinalysis dips positive for blood but only has 3-5 red cells and 5-10 white cells but many epithelial cells still contaminant. She is feeling better after fluids, Tylenol and Phenergan. She is to return tomorrow for her COVID testing. She will self isolate otherwise and stay home. Will need follow-up for return to work by primary care once asymptomatic. Return to ED for mental status changes, lethargy, difficulty breathing, chest pain, persistent vomiting. Medical Records Medical records reviewed: Yes I reviewed the patient's medical records. Lab Data Lab results reviewed: Yes I reviewed the patient's lab results. HPI General Mode of arrival: ambulatory . Date/Time Provider Initiated Documentation: 11/28/19 21:53 . Limitations to Documentation: no limitations . Information obtained by: patient and RN notes reviewed . HPI Narrative: Patient returns with fever and feeling unwell. Patient was seen here earlier today for same. Reports that yesterday she felt hot but assumed it was environmental. Overnight she had chills and thought she was just cold from sweating due to heat. Try to go to work in the morning but realize she had a fever and developed cough and headache as well as body aches and malaise. She left work and was seen here. Chest x-ray was negative. She was set up for COVID testing tomorrow. Since being home she continues to have headache, cough, body aches, malaise. She has now developed nausea and dry heaves. Continues to run fever of 102. Continued to feel unwell and decided to come back for recheck. She did take 800 of ibuprofen 1 hour prior to coming. Her headache is generalized and posterior. She gets headaches quite often. This feels the same as all previous headaches but will not go away. She denies having any chest p ain or shortness of breath. She denies sore throat, congestion, earache. She denies abdominal pain or diarrhea. She denies any urinary symptoms. 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 Related Data Home Medications Medication Instructions Recorded Confirmed glatiramer [Copaxone] 40 mg SUBCUT 08/10/19 lamotrigine 75 mg PO BID 08/10/19 11/28/19 venlafaxine [Effexor XR] 150 mg PO DAILY AM 08/10/19 11/28/19 promethazine 25 mg PO Q6H PRN #10 tab 11/29/19 Previous Rx's Medication Instructions Recorded promethazine 25 mg PO Q6H PRN #10 tab 11/29/19 Allergies Allergy/AdvReac Type Severity Reaction Status Date / Time clindamycin AdvReac Unverified 08/10/19 14:15 hydrocodone [From Vicodin] AdvReac Unverified 08/10/19 14:14 levetiracetam [From Keppra] AdvReac Unverified 08/10/19 14:18 Sulfa (Sulfonamide AdvReac Unverified 08/10/19 14:15 Antibiotics) General Stated Complaint: Recheck LIZ: 3 Review of Systems Narrative: As documented in HPI otherwise negative as below. Const: fever, chills, weakness Resp: cough, no SOB, pleuritic pain CV: no CP, diaphoresis, edema, syncope GI: nausea, vomiting, no abdominal pain, diarrhea Neuro: headache, no numbness, focal weakness, confusion [facility] Medical History Multiple sclerosis (Chronic) Social History Smoking/Tobacco Use Status: Current every day Tobacco Type: cigarettes Alcohol Intake: current Alcohol Intake frequency: holidays/special occasions only Drug use: Occasionally Substance use type: marijuana Do you feel safe at home: Yes Do you feel safe in your relationship?: Yes Exam Narrative Exam Narrative: Vitals: Febrile. Pulse high normal at 100. Blood pressure normal. Room air O2 saturation normal. Const: Obese female in NAD. HEENT: NC/AT. Normal facial exam. Eyes: Normal conjunctiva and sclera. Neck: Supple. Trachea midline. No meningeal signs. Lungs: Normal respiratory effort. Cor: Good radial pulses. GI: Soft. NT/ND. No guarding or rebound. Neuro: A+O x 3. Normal speech, mentation, gait. Cranial nerves II - XII grossly intact. No gross motor or sensory deficit. Ext: No C/C/E. Skin: Warm and dry without rash. Course Vital Signs Vital signs: Vital Signs Temperature 102.2 F H 11/28/19 21:41 Pulse 100 H 11/28/19 21:41 Respiratory Rate 11/28/19 21:41 Blood Pressure 140/72 11/28/19 21:41 Pulse Oximetry 95 11/28/19 21:41 Temperature 102.2 F H 11/28/19 21:41 Pulse 100 H 11/28/19 21:41 Respiratory Rate 11/28/19 21:41 Respiratory Effort 11/28/19 21:47 Blood Pressure 140/72 11/28/19 21:41 Blood Pressure Position Supine 11/28/19 21:41 Pulse Oximetry 95 11/28/19 21:41 Oxygen Delivery Method Room Air 11/28/19 21:41 Oxygen Flow Rate 0 11/28/19 21:41 Pain Level 6 11/28/19 21:41
[2019-11-28 22:42] LABS: Abs Immature Grans 0.02 k/cumm (0.0-0.09); Absolute Basophil Count 0.02 k/cumm (0.0-0.2); Absolute Eosinophil Count 0.01 k/cumm (0.0-0.7); Absolute Monocyte Count 0.68 k/cumm (0.11-0.7); Absolute Neutrophil Count 4.87 k/cumm (1.2-6.7); Basophils % 0.3; Eosinophils % 0.2; HCT 42.3 % (36.0-46.0); HGB 14.4 g/dL (12.0-15.5); Immature Grans % 0.3 %; Lymphocytes % 6.7; Mean Corpuscular Hemoglobin 29.4 pg (27.0-33.0); Mean Corpuscular Volume 86.5 fL (80-95); Mean Platelet Volume 10.5 fL (8.0-11.0); Monocytes % 11.3; Neutrophils % 81.2; Platelet Count 172 x1000/uL (130-400); RBC 4.89 m/cumm (4.00-5.20); RBC Distribution Width 13.1 % (11.7-14.6)
[2019-11-28] MEDS: Lactated Ringers 1,000 ML 1000 ML IV (22:42)
[2019-11-28] MEDS: Acetaminophen 500 MG TAB 1000 MG PO (22:42)
[2019-11-28 22:57] LABS: ALT 56 U/L (14-59); AST 38 U/L (15-37); Alkaline Phosphatase 64 U/L (46-116); BUN 10 mg/dL (7-18); Bilirubin, Total 0.2 mg/dL (0.2-1.0); CREATININE 1.11 mg/dL (0.55-1.02); Calcium 8.3 mg/dL (8.5-10.1); Chloride 103 mmol/L (98-107); Estimated GFR 54.72 (mL/min/1.73m2); Glucose 122 mg/dL (74-106); Potassium 3.3 mmol/L (3.5-5.1); Sodium 137 mmol/L (136-145); Total Protein 6.9 g/dL (6.4-8.2)
[2019-11-29] VITALS: O2SAT 93
[2019-11-29 00:01] VITALS: BP 103/57; PULSE 86
[2019-11-29 00:16] LABS: Bacteria Few HPF (Negative); Bilirubin Negative (Negative); Blood Large (Negative); Casts Negative LPF (Negative); Clarity Clear (Clear); Crystals Negative HPF (Negative); Epithelial Cells Many HPF (Negative); Glucose Negative (Negative); Ketones Negative (Negative); Leukocyte Esterase Trace (Negative); Mucus Negative (Negative); Nitrite Negative (Negative); pH 5.5 (5-8)
[2019-11-29 00:17] LABS: C & S Indicated? No/Sq. Contamination
[2019-11-29 00:45] VITALS: BP 103/57; PULSE 86; RESP 16; TEMP 37.4; O2SAT 93
== END 2019-11-29 00:45 | disposition home or self-care (01) ==
PROVIDERS: Emergency Provider Emergency Medicine; PCP Family Medicine
DX: R51 Headache (principal); R05 Cough; R50.9 Fever, unspecified; R11.0 Nausea; D72.810 Lymphocytopenia; E87.6 Hypokalemia; B34.9 Viral infection, unspecified; G35 Multiple sclerosis
CPT/HCPCS: 36415; 80053; 96361; 96365; 99284; 81003; 81015; 85025

== ENCOUNTER 2019-11-29 09:38 | Outpatient (CLI) | payer OTHER, SELFPAY ==
[2019-12-01 00:02] LABS: COVID-19 RT-PCR Result NEGATIVE (Negative)
== END 2019-11-29 09:58 ==
PROVIDERS: PCP Family Medicine; Visit Provider Physician Assistant
DX: Z11.59 Encounter for screening for other viral diseases (principal)
CPT/HCPCS: U0003

== ENCOUNTER 2019-12-09 16:38 | Outpatient (REF) | payer OTHER, SELFPAY ==
[2019-12-11 19:10] LABS: COVID-19 RT-PCR UVMMC Result Negative (Negative)
== END 2019-12-09 16:58 ==
LOC: NCHCN 16:38
PROVIDERS: PCP Family Medicine; Visit Provider Nurse Practitioner Family
DX: J06.9 Acute upper respiratory infection, unspecified (principal)
CPT/HCPCS: U0003

== ENCOUNTER 2021-06-30 19:08 | Outpatient (REF) | payer OTHER, SELFPAY ==
[2021-07-01 16:14] LABS: COVID-19 RT-PCR UVMMC Result Negative (Negative)
== END 2021-06-30 19:09 | disposition home or self-care (01) ==
LOC: LBN 19:08
PROVIDERS: PCP Family Medicine; Visit Provider Physician Assistant Medical
DX: Z20.822 Contact with and (suspected) exposure to COVID-19 (principal); J06.9 Acute upper respiratory infection, unspecified
CPT/HCPCS: U0003

== ENCOUNTER → 2021-12-16 02:41 | Outpatient (CLI) | payer OTHER, SELFPAY | PROVIDERS: PCP Family Medicine; Visit Provider Family Medicine ==

== ENCOUNTER 2022-01-03 14:56 | Emergency (ER) | payer OTHER, SELFPAY ==
[2022-01-03 15:09] VITALS: BP 124/73; PULSE 85; RESP 22; TEMP 36.6; O2SAT 97
--- NOTE | 2022-01-03 15:46 | W.ED.GENAD ---
Discharge Plan Disposition Patient Disposition: HOME Condition: Stable Discharge Details Clinical Impression: Dog bite of left forearm Primary Care Provider: Nadine Mcduffie ED Provider: Pauline Conte Home Meds and New Rx's Prescriptions: New amoxicillin-pot clavulanate 875-125 mg tablet 1 tab PO BID 7 Days Qty: 14 0RF Continued venlafaxine 225 MG tablet extended release 24hr 75 mg PO DAILY levothyroxine 25 MCG tablet 50 mcg PO DAILY gabapentin 100 mg capsule 100 mg PO HS Label Comments: START AT 1 CAPSULE BY MOUTH AT BEDTIME. INCREASING TO MAX OF 3 CAPSULES THREE TIMES DAILY TOLERATED baclofen 5 mg Tablet 2.5 mg PO PRN PRN Rx Instructions: rarely takes glatiramer [Copaxone] 40 mg/mL Syringe 40 mg SUBCUT DIRECTED Label Comments: takes lamotrigine 25 mg Tablet 75 mg PO BID glatiramer [Copaxone] 40 mg/mL Syringe 40 mg SUBCUT Rx Instructions: 08/10/19 three times per week No Action ibuprofen 200 MG tablet 400 mg PO PRN PRN promethazine 25 mg tablet 25 mg PO Q6H PRN (Reason: nausea and vomiting) Qty: 10 0RF lamotrigine [Lamictal] 150 mg Tablet 150 mg PO BID venlafaxine [Effexor XR] 150 mg Capsule,Extended Release 24hr 150 mg PO DAILY AM Discharge Instructions Instructions: Animal Bite (ED) Additional Instructions: Keep Clean, No soaking. Keep Dry. Steri strips will start to slough off in 4-6 days. Wash under running soap and water. Take the antibiotics as directed, take them with yogurt or a probiotic. Follow up with PCP in 3-5 days if needed for a re-check. Return to ED or be seen sooner if any signs of infection, red streaks, or drainage. Referrals: Nadine Mcduffie [Primary Care Provider] - 5 days Discharge Data Discharge Date/Time-TO BE ENTERED AT DEPARTURE: 01/03/22 16:29 Medical Decision Making 41 year old female presents to ER after Dog bite to left forearm approx 1 hour ago. She has three puncture wounds to anterior forearm and one puncture wound to posterior forearm. FROM to arm. No deformity, UTD on TDAP. Patient denies dogs acting strangely. Will give Augmentin and DC. Discussed home care and strict return instructions. Dog bite form filled out. This text was generated using [employer] system, please disregard any oddities of phrase or misspellings. HPI General Mode of arrival: ambulatory. Date/Time Provider Initiated Documentation: 01/03/22 15:46. Limitations to Documentation: no limitations. Information obtained by: patient, RN notes reviewed and old records reviewed. HPI Narrative: 41-year-old female presents to the ER with a chief complaint of dog bite which occurred approximately 1 hour prior to arrival. Patient sustained a dog bite to her left forearm while trying to break up a dog fight. She has approximately 4 puncture wounds/lacerations noted none larger than 1 cm. Bleeding is controlled upon arrival. She has full range of motion noted to her extremity. No other injuries or complaints at this time. She is up-to-date on her tetanus vaccination. Past medical history includes multiple sclerosis. Related Data Home Medications Medication Instructions Recorded Confirmed ibuprofen 200 mg tablet 400 mg PO PRN PRN 04/06/15 11/28/19 venlafaxine 225 mg tablet,extended 75 mg PO DAILY 04/06/15 01/03/22 release 24 hr levothyroxine 25 mcg tablet 50 mcg PO DAILY 01/30/16 11/28/19 glatiramer 40 mg/mL subcutaneous 40 mg subcut DIRECTED 05/03/18 11/28/19 syringe (Copaxone) lamotrigine 150 mg tablet 150 mg PO BID 05/03/18 11/28/19 (Lamictal) glatiramer 40 mg/mL subcutaneous 40 mg subcut 08/10/19 syringe (Copaxone) lamotrigine 25 mg tablet 75 mg PO BID 08/10/19 11/28/19 venlafaxine 150 mg 150 mg PO DAILY AM 08/10/19 01/03/22 capsule,extended release 24 hr (Effexor XR) baclofen 5 mg tablet 2.5 mg PO PRN PRN 11/28/19 11/28/19 gabapentin 100 mg capsule 100 mg PO HS 11/28/19 11/28/19 promethazine 25 mg tablet 25 mg PO Q6H PRN nausea and 11/29/19 01/03/22 vomiting #10 tabs amoxicillin 875 mg-potassium 1 tab PO BID 7 days #14 tabs 01/03/22 clavulanate 125 mg tablet Previous Rx's Medication Instructions Recorded promethazine 25 mg tablet 25 mg PO Q6H PRN nausea and 11/29/19 vomiting #10 tabs amoxicillin 875 mg-potassium 1 tab PO BID 7 days #14 tabs 01/03/22 clavulanate 125 mg tablet Allergies Allergy/AdvReac Type Severity Reaction Status Date / Time Sulfa (Sulfonamide Allergy Skin Rash Unverified 01/03/22 15:21 Antibiotics) Opioids - Morphine Analogues AdvReac Unknown agitation Unverified 01/03/22 15:21 with narcotic pain meds clindamycin AdvReac Other (See Unverified 01/03/22 15:21 Comment) hydrocodone [From Vicodin] AdvReac Agitation Unverified 01/03/22 15:21 levetiracetam [From Keppra] AdvReac Other (See Unverified 01/03/22 15:21 Comment) General Stated Complaint: AnimalBite LIZ: 4 Review of Systems Integumentary/Breasts Skin/Breast: Reports as per HPI and Reports wounds (Dog bite left forearm) PFSH All Active Problems Dog bite of left forearm (Acute) Dog bite (Acute) Right upper quadrant pain (Acute) Medical History Multiple sclerosis Multiple sclerosis Surgical History Cholecystectomy (01/30/16) Social History Smoking/Tobacco Use Status: Current every day Tobacco Type: cigarettes Smoking risk assessment performed?: Yes Alcohol Intake: current Alcohol Intake frequency: holidays/special occasions only Drug use: Occasionally Substance use type: marijuana Details: every other day for MS Do you feel safe at home: Yes Do you feel safe in your relationship?: Yes Exam Extrem General: capillary refill normal Left upper extremity: elbow/forearm Details: abnormal to inspection, tenderness, normal ROM, abrasion, penetrating wound (Anterior and posterior) forearm mid posterior Details: multiple (4 separate bite herndon, laceration largest 1 cm bleeding controlled.) and distal pulses intact; no deformity Elbow/forearm/wrist images: 1. Puncture wound 2. Puncture wound 3. Approx 1cm Laceration, Puncture wound to Forearm, bleeding controlled 4. 0.5cm laceration, puncture wound Course Vital Signs Vital signs: Vital Signs Temperature 36.6 C 01/03/22 15:09 Pulse 85 01/03/22 15:09 Respiratory Rate 22 01/03/22 15:09 Blood Pressure 124/73 01/03/22 15:09 Pulse Oximetry 97 01/03/22 15:09 Temperature 36.6 C 01/03/22 15:09 Temperature Source Temporal Artery Scan 01/03/22 15:09 Pulse 85 01/03/22 15:09 Respiratory Rate 22 01/03/22 15:09 Respiratory Effort 01/03/22 15:25 Blood Pressure 124/73 01/03/22 15:09 Blood Pressure Position Supine 01/03/22 15:09 Pulse Oximetry 97 01/03/22 15:09 Oxygen Delivery Method Room Air 01/03/22 15:09 Oxygen Flow Rate 0 01/03/22 15:09 Pain Level 4 01/03/22 15:44
[2022-01-03] MEDS: Amoxicillin 875/Clav. 125 TAB PO (16:25)
[2022-01-03] MEDS: Amox. 875/Clav. 125, 2 TABS/BTL 1 TAB PO (16:26)
--- NOTE | 2022-01-03 16:29 | NUR.NOTE ---
Faxed the animal bite report, left message for the [facility] health officer Derick that I was faxing the report. Nursing Note:
== END 2022-01-03 16:29 | disposition home or self-care (01) ==
PROVIDERS: Emergency Provider Registered Nurse Emergency; PCP Family Medicine
DX: S51.812A Laceration without foreign body of left forearm, initial encounter (principal); F17.210 Nicotine dependence, cigarettes, uncomplicated; W54.0XXA Bitten by dog, initial encounter
CPT/HCPCS: 99283

== ENCOUNTER 2023-11-13 15:26 | Outpatient (REF) | payer OTHER, SELFPAY ==
[2023-11-13 21:34] LABS: TSH (W/Ref FT4) 5.62 uIU/mL (0.36-3.74)
== END 2023-11-13 15:27 | disposition home or self-care (01) ==
LOC: NCHCN 15:26
PROVIDERS: PCP Family Medicine; Visit Provider Family Medicine
DX: E03.9 Hypothyroidism, unspecified (principal)
CPT/HCPCS: 84439; 84443

== ENCOUNTER 2024-05-02 19:11 | Outpatient (REF) | payer OTHER, SELFPAY ==
[2024-05-02 16:25] LABS: BUN 13 mg/dL (7-18); CREATININE 0.9 mg/dL (0.55-1.02); Calcium 9.1 mg/dL (8.5-10.1); Glucose 91 mg/dL (74-106)
[2024-05-02 16:26] LABS: ALT 36 U/L (14-59); AST 18 U/L (15-37); Albumin 3.7 g/dL (3.4-5.0); Alkaline Phosphatase 77 U/L (46-116); Anion Gap 8.8 mmol/L (3-11); Bilirubin, Total 0.28 mg/dL (0.2-1.0); CO2 30.2 mmol/L (21.0-32.0); Calculated LDL 179 mg/dL (<100); Chloride 105 mmol/L (98-107); Cholesterol 238 mg/dL (<200); Estimated GFR 80.84 (mL/min/1.73m2); HDL Cholesterol 47 mg/dL (40-60); Potassium 4.3 mmol/L (3.5-5.1); Sodium 144 mmol/L (136-145); TSH (W/Ref FT4) 5.21 uIU/mL (0.36-3.74); Total Protein 7.3 g/dL (6.4-8.2); Triglyceride 63 mg/dL (<150)
[2024-05-02 17:15] LABS: FREE T4 0.86 ng/dL (0.76-1.46)
== END 2024-05-02 19:12 | disposition home or self-care (01) ==
LOC: NCHCN 19:11
PROVIDERS: PCP Family Medicine; Visit Provider Family Medicine
DX: E66.9 Obesity, unspecified (principal); E03.9 Hypothyroidism, unspecified
CPT/HCPCS: 80053; 80061; 84439; 84443

== ENCOUNTER 2024-05-22 18:29 | Emergency (ER) | payer OTHER, SELFPAY ==
[2024-05-22 18:32] VITALS: BP 145/82; PULSE 79; RESP 15; TEMP 36.8; O2SAT 97
--- NOTE | 2024-05-22 18:45 | W.ED.GENAD ---
Discharge Plan Disposition Patient Disposition: Home Condition: Stable Discharge Details Clinical Impression: Right knee pain Primary Care Provider: Licha Holm ED Provider: Cody Barros Home Meds and New Rx's Prescriptions: Continued ibuprofen 200 MG tablet 400 mg PO PRN PRN venlafaxine 225 MG tablet extended release 24hr 75 mg PO DAILY levothyroxine 25 MCG tablet 50 mcg PO DAILY baclofen 5 mg Tablet 2.5 mg PO PRN PRN Rx Instructions: rarely takes lamotrigine [Lamictal] 150 mg Tablet 150 mg PO BID venlafaxine [Effexor XR] 150 mg Capsule,Extended Release 24hr 150 mg PO DAILY AM lamotrigine 25 mg Tablet 75 mg PO BID Discharge Instructions Instructions: Knee Pain ED Additional Instructions: You were seen in the emergency department for your right knee pain likely from overuse, you have some ankle swelling as well, your story is suspicious for a possible internal knee injury I think you need specialty evaluation by orthopedics, I did provide a knee immobilizer, please rest, ice, compress and elevate, take regular dose of Tylenol and ibuprofen, return for any severe increase in leg swelling especially with skin changes, signs of infection, inability to ambulate. Referrals: [facility] [Provider Group] Licha Holm [Primary Care Provider] - Discharge Data Discharge Date/Time-TO BE ENTERED AT DEPARTURE: 05/22/24 21:20 HPI General Date/Time Provider Initiated Documentation: 05/22/24 18:31. HPI Narrative: 43 year-old female presents to ED today by POV/ambulating with a chief complaint of R knee, calf, and ankle pain with onset 5 days ago. Patient has chronic MS and has gait abnormalities and often over favors her right side. Quality described as mostly posterior knee pain, feels some knee instability and hyperextension, occasional locking of the knee in extension, mild ankle swelling, no radiation to significant calf swelling, skin changes, medial thigh tenderness, petechiae, numbness or tingling, low back pain, urinary bowel changes. Severity is described as 7/10. Palliating factors include Tylenol and ibuprofen not helping. Provoking factors include walking. Events leading up to the incident/Associated Symptoms: Patient has not seen orthopedics or physical therapy for this issue yet, is right side dominant. Patient not anticoagulated. Related Data Home Medications ?Medication ?Instructions ?Recorded ?Confirmed ibuprofen 200 mg tablet 400 mg PO PRN PRN 04/06/15 05/22/24 venlafaxine 225 mg tablet,extended 75 mg PO DAILY 04/06/15 05/22/24 release 24 hr levothyroxine 25 mcg tablet 50 mcg PO DAILY 01/30/16 05/22/24 lamotrigine 150 mg tablet 150 mg PO BID 05/03/18 05/22/24 (Lamictal) lamotrigine 25 mg tablet 75 mg PO BID 08/10/19 05/22/24 venlafaxine 150 mg 150 mg PO DAILY AM 08/10/19 05/22/24 capsule,extended release 24 hr (Effexor XR) baclofen 5 mg tablet 2.5 mg PO PRN PRN 11/28/19 05/22/24 Allergies Allergy/AdvReac Type Severity Reaction Status Date / Time Sulfa (Sulfonamide Allergy Skin Rash Unverified 05/22/24 18:36 Antibiotics) Opioids - Morphine Analogues AdvReac Unknown agitation Unverified 05/22/24 18:36 with narcotic pain meds clindamycin AdvReac violently Unverified 05/22/24 18:36 ill hydrocodone (From Vicodin) AdvReac Agitation Unverified 05/22/24 18:36 levetiracetam (From Keppra) AdvReac suicidal Unverified 05/22/24 18:36 ideation General Stated Complaint: Orthopedic LIZ: 4 Review of Systems All systems reviewed & are unremarkable except as noted in HPI and below Exam Narrative Exam Narrative: GENERAL APPEARANCE: Well-nourished, non-toxic, awake and alert, atraumatic, no acute distress. SKIN: Warm, pink, dry, intact, without rashes/lesions/ulcerations. HEAD: Normocephalic, atraumatic, normal hair distribution for gender/age. EYES: Normal conjunctiva, no exudates on lids/lashes. ENT: Nares patent, no circumoral cyanosis, no facial swelling NECK: Supple, trachea midline, painless cervical ROM. LUNGS/CHEST: Non-labored respirations, normal A/P diameter, symmetrical expansion, no chest wall deformity HEART (CV/PV): Regular rate, R dorsalis pedis pulse 2+no peripheral edema, no JVD. ABDOMEN: Soft, non-distended, no guarding. MSK: Normal ROM, no swelling/deformity to bilateral UEs or LEs, moving all extremities without weakness, no cyanosis, spine midline without tenderness, normal curvature, chronic tremulous movements, right knee joint line tenderness, popliteal fossa tenderness, no overt tenderness or instability with varus valgus forces, negative laxity with Samira, negative Jyoti, no calf swelling, Homans negative, neurovascular intact in right foot NEURO: Mental Status AAOx4 - alert to person, place, time, events No facial droop, no forehead involvement. Motor: No focal weakness - strength 5/5 in bilateral UEs and LEs, proximal and distal, symmetric. Sensory: sensation intact to light touch globally. Gait normal: patient ambulated without ataxia into ED room. PSYCH: euthymic, cooperative, pleasant, appropriate speech Course Vital Signs Vital signs: Vital Signs Temperature 36.8 C 05/22/24 18:32 Pulse 79 05/22/24 18:32 Respiratory Rate 15 05/22/24 18:32 Blood Pressure 145/82 H 05/22/24 18:32 Pulse Oximetry 97 05/22/24 18:32 Temperature 36.8 C 05/22/24 18:32 Pulse 79 05/22/24 18:32 Respiratory Rate 15 05/22/24 18:32 Respiratory Effort Normal 05/22/24 18:35 Blood Pressure 145/82 H 05/22/24 18:32 Blood Pressure Position Sitting 05/22/24 18:32 Pulse Oximetry 97 05/22/24 18:32 Oxygen Delivery Method Room Air 05/22/24 18:32 Oxygen Flow Rate 0 05/22/24 18:32 Medical Decision Making This dictation utilizes [id number] dictation software and may contain unedited grammatical errors. 43 year-old female presents to ED today by POV/ambulating with a chief complaint of R knee, calf, and ankle pain with onset 5 days ago. Patient has chronic MS and has gait abnormalities and often over favors her right side. Quality described as mostly posterior knee pain, feels some knee instability and hyperextension, occasional locking of the knee in extension, mild ankle swelling, no radiation to significant calf swelling, skin changes, medial thigh tenderness, petechiae, numbness or tingling, low back pain, urinary bowel changes. Severity is described as 7/10. Palliating factors include Tylenol and ibuprofen not helping. Provoking factors include walking. Events leading up to the incident/Associated Symptoms: Patient has not seen orthopedics or physical therapy for this issue yet, is right side dominant. Patients' medical history: Multiple sclerosis. Family and social history: Noncontributory. Pertinent exam findings / vital signs include mild right joint line tenderness, posterior popliteal fossa tenderness, neurovascularly intact distal, no significant calf swelling, Homans negative on the right, very mild ankle swelling with neurovascularly intact to right foot. Differential / pathologies of concern include tendinitis, overuse injury, meniscus or other internal knee injury, Cuellar's cyst. Diagnostic studies of: -X-ray R knee -no acute pathology. Interventions of: -Knee immobilizer provided, recommend orthopedic evaluation for likely internal knee issues. ED Course/Assessment/Plan: 43-year-old female with MS and significant overuse of her right side due to chronic gait abnormalities presents with right knee pain, some instability and hyperextension sensed, no palpable popliteal fossa abnormality has mild joint line tenderness, no overtly positive Jyoti, no signs of DVT, I recommend she follow-up with orthopedics for possible MRI of her right knee, strict return criteria for any increasing swelling to the right leg or skin changes. Findings not consistent with DVT, neurovascular compromise. Disposition of right knee pain. Patient verbalized understanding of the plan and return to ED criteria and engaged in shared decision making. Medical Records Medical records reviewed: Yes I reviewed the patient's medical records. Imaging Data Radiologic Study: Attestation: I personally reviewed and interpreted this imaging study as follows: Imaging: X-Ray Radiologist's impression: Exam: XR Right Knee Exam date and time: 05/22/2024 7:52 PM Age: 43 years old Clinical indication: Pain; Knee; Right; Additional info: R knee pain TECHNIQUE: Imaging protocol: Radiologic exam of the right knee. Views: 3 views. COMPARISON: CR XR foot RT complete 05/03/2018 8:52 AM FINDINGS: Bones/joints: No fracture or other osseous abnormality. Joint spaces are well preserved. No significant effusion. No varus or valgus angulation. Soft tissues: Normal. IMPRESSION: Normal knee. Dictated and Authenticated by: Daryn Aguilar MD. Quality:SDOH Health Related Social Needs: No Data to Display PFSH All Active Problems (Updated 05/22/24 @ 21:02 by TALISHA Altman) Right knee pain (Acute) Dog bite (Acute) Right upper quadrant pain (Acute) Medical History (Updated 05/22/24 @ 21:02 by TALISHA Altman) Multiple sclerosis Multiple sclerosis Surgical History Cholecystectomy (01/30/16) Social History Smoking/Tobacco Use Status: Current every day Tobacco Type: cigarettes Smoking risk assessment performed?: Yes Alcohol Intake: current Alcohol Intake frequency: holidays/special occasions only Drug use: Occasionally Substance use type: marijuana Details: every other day for MS Do you feel safe at home: Yes Do you feel safe in your relationship?: Yes PAWSS Have you Been Recently Intoxicated or Drunk Within the Last 30 days?: No Have you Ever Experienced Previous Episodes of Alcohol Withdrawal?: No Have you ever Experienced Withdrawal Seizures?: No Have you ever Experienced Delirium Tremens(DT)s?: No Have you ever undergone Alcohol Rehabilitation Treatment (i.e, inpt ot outpatient treatment programs)?: No Have you ever Experienced Blackouts?: No Have you ever Combined Alcohol with other Downers within the last 90 days?: No Have you ever Combined Alcohol with any other Substance of Abuse during the last 90 days?: No Positive Blood Alcohol level on Presentation? [PCS.BAL]: No Evidence of Increased Autonomic Activity (i.e. HR>120, tremor, sweating, agitation, nausea)?: No Result: 0
--- NOTE | 2024-05-22 19:30 | DI.RAD_ITS ---
Exam(s) XR KNEE RT 3V AP,LAT,KEYLA EXAM: XR KNEE RT 3V AP,LAT,KEYLA CLINICAL HISTORY: R knee pain. TECHNIQUE: 2D digital imaging was performed. COMPARISON: No exams were available for comparison FINDINGS: 3 views No evidence of acute fracture or joint effusion. No joint space narrowing. No osteochondral defects . Incidentally noted is small bony excrescence medial aspect of the medial femoral condyle which is in the region of the insertion of the medial collateral ligament. Probably variant of normal. IMPRESSION: No acute osseous findings in the right knee. DATA REPOSITORY: RADIATION DOSE DELIVERED:
--- OUTSIDE RECORDS SUMMARY | 2024-05-22 19:40 | XMS_ITS | Encounter Summary ---
Author Organization [facility] Address [address] [place] [address] Care Team Providers Care Instructional Facilitator Name Role Phone Amandeep Ellis DO Primary Care Provider [phone] Encounter Details Date Type Department Care Team (Late st Contact Info) Description 12/05/2006 Office Visit [facility] - Maple conversion [address] [place] [phone] Chidi Bowers PA-C [address] [facility], [address] [place] [id number] Social History Tobacco Use Types Packs/Day Years Used Date Smoking Tobacco: Never Assessed Comments Unknown Sex and Gender Information Value Date Recorded Sex Assigned at Not on file Legal Sex Female 18:37 EST Gender Identity Not on file Sexual Orientation Not on file documented as of this encounter Progress Notes * Chidi Bowers Jr., PA - 08/23/2009 0204 EST Department - Physician Summary Registration Date/Time: 12/05/2006 14:55 Arrived- By private vehicle. Historian- patient. HISTORY OF PRESENT ILLNESS Chief complaint- ABDOMINAL PAIN. Is still present. It is described as sharp and stabbing and it is described as located in the right lower quadrant. At its maximum, severity described as moderate. When seen in the E.D., severity described as moderate. Modifying factors- worsened by movement (pt hadsudden onset of abdominal pain after intercourse). No nausea, loss of appetite, vomiting or diarrhea. Patient has not had similar symptoms previously. The patient was seen recently by a health care provider. (seen yesterday by pcp dx with bv and yeast infection). REVIEW OF SYSTEMS The patient has had low grade fever. No constipation, black stools, hematemesis, difficulty with urination or pain with urination. No urinary frequency, missed periods, abnormal bleeding, irregular periods or headache. No sore throat, chest pain, difficulty breathing, skin rash or chills. No back pain. Denies current . All systems otherwise negative, except as recorded above. PAST HISTORY See nurses notes. Medications: The patient's medications have been reviewed. Allergies: The patient's allergies have been reviewed. SOCIAL HISTORY Smoker. ADDITIONAL NOTES The nursing noteshave been reviewed. PHYSICAL EXAM Appearance: Alert. Oriented X3. Patient in mild distress. Vital Signs: Have been reviewed. Neck: Normal inspection. Neck supple. CVS: Normal heart rate and rhythm. Heart sounds normal. Respiratory: No respiratory distress. Breath sounds normal. Abdomen: Moderate tenderness in the right lower quadrant with guarding present. No rebound tenderness or Elizabeth's or obturator sign present. Abdomen soft. No abdominal distention or mass present. Back: Normal inspection. No CVA tenderness. : Normal external exam. No tenderness present on bimanual exam. Skin: Normal skin color. Skin warm. LABS, X-RAYS, AND EKG Pelvic Sonogram: appendix not visualized, otherwise normal us. The study was interpreted by the radiologist and discussed with the radiologist. CBC: CBC is normal. PROGRESS AND PROCEDURES E.D. Course: pt feeling better prior to discharge. Patient is stable. Toradol 15 mg IVP. counseled. Old medical records ordered. Disposition orders written. ED Attending on duty and available for supervision: Layla Lion. Disposition: Discharged home. Condition: good. CLINICAL IMPRESSION Abdominal pain. INSTRUCTIONS Do not work today. return in 8 hours if abdominal pain worsens, fever, vomiting, limit eating, vicodin as needed for pain tonight 1 pill every 4-6 hours. Follow-up: Follow up with your doctor. (Electronically signed by Lizabeth Sin 12/05/2006 20:39) Addenda ARIA Antunez VisitID: [id number] Date: 12/05/2006 12/09/2006 8:37 Message left on answering phone to call ER regarding lab results. signed by Nadine Ochoa R.N. - 12/09/2006 8:37) 12/09/2006 12:00 Patient returned phone call. Doing okay, but feels like she may have a UTI. Thought the Metronidazole would address it. Informed as to culture results and need for antibiotic. Phoned into [facility] per patient request for Cipro 500 mg BID for 3 days. Advised to recheck prn. signed by Nadine Ochoa R.N. - 12/09/2006 12:00) Department - Nursing Summary Registration Date/Time: 12/05/2006 14:55 TRIAGE Initial Assessment Triage time 14:55. Acuity: LEVEL 3. BP: 130 / 62. HR: 85. RR: 14. Temp: 36.7 C. Alert. --1456 Senia England R.N.. Medications None. (has Rx for diflucan and metronidazole (not filled yet)). --1456 Senia England R.N.. Allergies (sulfa; pcn). --1456 Senia England R.N.. History Chief Complaint: (bacterial vaginosis and yeast infection diagnosed yesterday; hasn't taken meds yet, pain has increased). Pain level now: 6/10. PAST HX: Denies current . (childhood asthma). SOCIAL HX: Smoker. Occasional alcohol use. No report of abuse. Arrived by private vehicle and accompanied by friend. Historian: patient. --1456 Senia England R.N. The patient has hadnausea. --145 Delonte ReganN.. PHYSICAL ASSESSMENT Appears in no acute distress. Oriented X 3. Respirations not labored. Mucous membranes are pink. Skin is warm and dry. --1457 Senia England R.N.. NURSING PROGRESS NOTES Patient gowned. Head of bed elevated. (aware to provide urine sample when able). Call light placed in reach. --1501 Senia England R.N. (assumed care of pt at this time). --1528 Juju Leyva R.N. late entry - 15:45. Pelvic exam performed by PA Joyce Bowers). Assisted by one nurse. Preparation: pelvic tray and culture medium. Procedure: speculum and bimanual exam. Specimens collected and sent to lab: wet prep. Status post- procedure: the patient was stable. --1557 Juju Leyva R.N. Blood samples drawn from the right antecubital space peripheral IV site (prior to IV fluid start) by nurse per protocol and sent to lab: purple and tiger top; total amount drawn 10 mL. --162 Juju Leyva R.N. TORADOL 15 mg 16:14 diluted with NS slow IVP over 2 minutes. . --162 Juju Leyva R.N. Urine dipstick, clean catch sample: moderate blood, moderate leukocyte esterase and nitrite strongly positive; negative for glucose, ketones, protein and bilirubin (S.025, pH 7.5, blo +2, leuk 2+). --173 Juju Leyva R.N. Urine test negative. --173 Juju Leyva R.N. Clean catch urine collected; sample sent to lab for culture (micro ). --173 Juju Leyva R.N. The patient is calm and resting quietly. Patient reports current pain level as 3/10. --174 Juju Leyva R.N. Patient transported to [facility] by stretcher with tech (18:00). --180 Juju Leyva R.N. (pt still in u/s). --183 Juju Leyva R.N. Patient returned from [facility] by stretcher with tech (18:50). --190 Juju Leyva R.N. BP: 99 / 55. HR: 58. RR: 16. Temp: 37.2 oral. O2 saturation: 98 % room air. The patient reports no complaints and the patient is resting quietly. Patient reports current pain level as 1/10. Overall patient status- the patient states feels better. --1900 Juju Leyva R.N. VICODIN 5 mg SP# [id number] PO. . --2014 Juju Leyva R.N.. IV / I&O Flowsheet IV access: right antecubital space. IV started in ED with 20g angiocath; one attempt. IV fluid started: 1000 mL NS: rate = wide open. --1622 Juju Leyva R.N. IV fluids discontinued. IV bag #1; late entry - 1000cc absorbed. --2014 Juju Leyva R.N. IV site discontinued, catheter intact and dressing applied. --2014 Juju Leyva R.N.. DISPOSITION / DISCHARGE Pain level (emotional at time of d/c but not b/c of pain c/o's). Patient reports pain level on departure as 0/10. Condition at departure: improved and stable. Fall risk assessment completed. No fall risk identified. No learning barriers present. Discharge instructions reviewed with the patient. Reviewed medication side effects, precautions, dosing and course; prescription (s) given to the patient(vicodin SP/ibuprofen). Reviewed referral to a developmental education instructor for followup. Patient verbalized understanding. Written instructions provided in Guamanian. The patient was discharged home and accompanied by spouse. The patient left the Emergency Department ambulatory and via private vehicle. --2017 Juju Leyva R.N.. Senia Leyva R.N. Locked/Released at 12/05/2006 20:18 by Juju Leyva R.N. documented in this encounter Plan of Treatment Not on file documented as of this encounter Visit Diagnoses Not on filedocumented in this encounter Care Teams Instructional Facilitator Relationship Specialty Start Date End Date Amandeep Ellis DO [address] [place] [address] PCP - General 11/12/08 02/02/16 documented as of this encounter
--- OUTSIDE RECORDS SUMMARY | 2024-05-22 19:40 | XMS_ITS | Encounter Summary ---
Author Organization [facility] Address [address] [place] [address] Care Team Providers Care Mixer Operator Vacuum Pan Salt Name Role Phone Unavailable Primary Care Provider Unavailabl e Encounter Details Date Type Department Care Team (Late st Contact Info) Description 02/22/2007 16:09 EDT Hospital Encounter [facility] - Other [address] [place] [address] Amandeep Ellis S, DO [facility] [address] [phone] Discharge Disposition: Home-Health Care Svc Social History Tobacco Use Types Packs/Day Years Used Date Smoking Tobacco: Never Assessed Comments Unknown Sex and Gender Information Value Date Recorded Sex Assigned at Not on file Legal Sex Female 18:37 EST Gender Identity Not on file Sexual Orientation Not on file documented as of this encounter Discharge Disposition Disposition Code Departure Means Destination Home-Health Care Svc documented in this encounter Plan of Treatment Not on file documented as of this encounter Visit Diagnoses Not on filedocumented in this encounter
--- OUTSIDE RECORDS SUMMARY | 2024-05-22 19:40 | XMS_ITS | Encounter Summary ---
Author Organization [facility] Address [address] [place] [address] Care Team Providers Care Oyster Grower Name Role Phone Amandeep Ellis DO Primary Care Provider [phone] Encounter Details Date Type Department Care Team (Late st Contact Info) Description 09/06/2008 Before PRISM Converted Visit (Maple) [facility] - Maple conversion [address] [place] [address] Emergency, MD Phil Social History Tobacco Use Types Packs/Day Years Used Date Smoking Tobacco: Never Assessed Comments Unknown Sex and Gender Information Value Date Recorded Sex Assigned at Not on file Legal Sex Female 18:37 EST Gender Identity Not on file Sexual Orientation Not on file documented as of this encounter Plan of Treatment Not on file documented as of this encounter Procedures Procedure Name Priority Date/Time Associated Diagnosis Comments BACTERIAL CULTURE, URINE Routine 09/06/2008 8:20 EST documented in this encounter Results * BACTERIAL CULTURE, URINE (09/06/2008 8:20 EST) Specimen Description Urine [facility] Result 10,000 to 100,000 CFU/ml ESCHERICHIA COLI Less than 10,000 CFU/ml Mixed gram positive growth [facility] Report Status Final 09/08/2008 [facility] 09/06/2008 8:20 EST 09/06/2008 10:24 EST Narrative Organism Antibiotic Method Susceptibility 10,000 to 100,000 cfu/ml escherichia coli Ampicillin SUSCEPTIBILITY (JUAN) <=2 Susceptible 10,000 to 100,000 cfu/ml escherichia coli Cefazolin SUSCEPTIBILITY (JUAN) <=4 Susceptible 10,000 to 100,000 cfu/ml escherichia coli Gentamicin SUSCEPTIBILITY (JUAN) <=1 Susceptible 10,000 to 100,000 cfu/ml escherichia coli Trimethoprim-Sulfametho xazole SUSCEPTIBILITY (JUAN) <=20 Susceptible 10,000 to 100,000 cfu/ml escherichia coli Nitrofurantoin SUSCEPTIBILITY (JUAN) <=16 Susceptible 10,000 to 100,000 cfu/ml escherichia coli Tobramycin SUSCEPTIBILITY (JUAN) <=1 Susceptible 10,000 to 100,000 cfu/ml escherichia coli Amikacin SUSCEPTIBILITY (JUAN) <=2 Susceptible 10,000 to 100,000 cfu/ml escherichia coli Imipenem SUSCEPTIBILITY (JUAN) <=1 Susceptible 10,000 to 100,000 cfu/ml escherichia coli Piperacillin SUSCEPTIBILITY (JUAN) <=4 Susceptible 10,000 to 100,000 cfu/ml escherichia coli Ceftriaxone SUSCEPTIBILITY (JUAN) <=1 Susceptible 10,000 to 100,000 cfu/ml escherichia coli Ciprofloxacin SUSCEPTIBILITY (JUAN) <=0.25 Susceptible 10,000 to 100,000 cfu/ml escherichia coli Piperacillin Tazobactam SUSCEPTIBILITY (JUAN) <=4 Susceptible us Default Emergency MD MICROBIOLOGY - GENERAL CRISTHIAN CAR Final Result Performing Organization Address City/State/[facility] Co de Phone Number [facility] [address] [address] documented in this encounter Visit Diagnoses Not on filedocumented in this encounter Care Teams Oyster Grower Relationship Specialty Start Date End Date Amandeep Ellis DO [address] [phone] PCP - General 11/12/08 02/02/16 documented as of this encounter
--- OUTSIDE RECORDS SUMMARY | 2024-05-22 19:40 | XMS_ITS | Encounter Summary ---
Author Organization [facility] Address [address] [place] [address] Care Team Providers Care Idea Man Name Role Phone Amandeep Ellis DO Primary Care Provider [phone] Encounter Details Date Type Department Care Team (Late st Contact Info) Description 01/30/2016 Results Only [facility] [phone] Partha Rae, DO [address] [place] [address] Social History Tobacco Use Types Packs/Day Years [...] Procedure Name Priority Date/Time Associated Diagnosis Comments SURGICAL PATHOLOGY Routine 01/30/2016 21 :18 EDT documented in this encounter Results * SURGICAL PATHOLOGY (01/30/2016 21:18 EDT) Pathology Report: SURGICAL PATHOLOGY REPORT Reports generated via electronic interface contain original data; however they are lacking the format of the original report. Caution should be taken when reading/interpret ing unformatted reports. Name: ? ARIA GRACIA ? Accession #: ? [id number] ? : ? 1980 (Age: 35) ??F ? Collect Date: ? 01/30/2016 ? Location: ? [facility] ? Receive Date: ? 02/01/2016 ? Provider: PARTHA RAE DO Copy to: ALISON ZIMMER MD ? Final Pathologic Diagnosis: GALLBLADDER, CHOLECYSTECTOMY: - ??Chronic cholecystitis with cholelithiasis. Document reviewed and electronically signed by: ELIAZAR VENTURA MD Report ??Date: 02/04/2016 10:43 By the signature above, the attending physician certifies that he/she has personally conducted a gross and/or microscopic examination of the described specimens and rendered or confirmed the above diagnosis. Specimen(s) Received: Gallbladder Clinical History: RUQ pain; clinical diagnosis code: ??R10.13 Gross Description: ? Received in formalin labelled with proper patient identification (initials B, S) and gallbladder is an intact gallbladder (5.9 x 3.0 x 2.0 cm) with an attached segment of cystic duct (0.2 cm in length x 0.1 cm in diameter). ? The serosa is rodgers-pink, smooth and glistening. The mucosa is green-brown and velvety and the wall is 0.2 cm in thickness. The cystic duct lumen is lodged with a large choleliths. The cystic duct margin is inked blue. Multiple yellow-green bosselated choleliths are present ranging from 0.1 cm to 1.7 cm in greatest dimension. ? Two business office representative sections and the inked en face cystic duct margin are submitted in 1. Dr. Bridges 02/02/2016 2:17 PM End of Report [facility] 01/30/2016 21:1 8 EDT 02/01/2016 21:18 EDT us Partha Rae DO PATHOLOGY ORDERABLES Final Res ult [facility] [address] [place] [address] documented in this encounter Visit Diagnoses Not on filedocumented in this encounter Care Teams Idea Man Relationship Specialty Start Date End Date Amandeep Ellis DO [id number] [place] [phone] PCP - General 11/12/08 02/02/16 documented as of this encounter
--- OUTSIDE RECORDS SUMMARY | 2024-05-22 19:40 | XMS_ITS | Encounter Summary ---
Author Organization [facility] Address [address] [place] [address] Care Team Providers Care Woven Wood Shade Assembler Name Role Phone Anand Rae DO Primary Care Provider [phone] Encounter Details Date Type Department Care Team (Late st Contact Info) Description 12/10/2019 Lab Requisition [facility] - [address] [address] Outr Resulting Lab, Provider Social History Tobacco Use Types Packs/Day Years [...] Procedure Name Priority Date/Time Associated Diagnosis Comments ZZCOVID-19 TEST [facility] PCR Today 12/09/2019 16:50 EDT COVID-19 TESTING Routine 12/09/2019 16:5 0 EDT documented in this encounter Results * COVID-19 TEST [facility] PCR (12/09/2019 16:50 EDT) Swab ENTIRE NASOPHARYNX / Unknown 12/09/2019 16:50 EDT 12/10/2019 15:39 EDT us Provider Outr Resulting Lab MICROBIOLOGY - GENER AL ORDERABLES Final Result [facility] [address] [place] [address] * COVID-19 TESTING (12/09/2019 16:50 EDT) COVID-19 rt-PCR Result Negative Negative 12/11/2019 19:05 EDT [facility] Comment: Negative results do not preclude 2019-nCoV infection and should not be used as the sole basis for treatment or other patient management decisions. Negative results must be combined with clinical observations, patient history, and epidemiological information. This test was developed and its performance characteristics determined by [facility]. It has not been cleared or approved by the US Food and Drug Administration. FDA does not require this test to go through premarket FDA review. This test is used for clinical purposes. It should not be regarded as investigational or for research. This laboratory is certified under the Clinical Laboratory Improvement Amendments (CLIA) as qualified to perform high complexity clinical laboratory testing. This test is based on the CDC COVID-19 Emergency Use Authorization (EUA) assay, with minor modification as defined by the FDA Performed on the [employer] [address] Fast. Performing Lab AB [address] [facility] 12/11/2019 19:05 EDT [facility] Swab ENTIRE NASOPHARYNX / Unknown 12/09/2019 16:50 EDT 12/10/2019 15:39 EDT us Provider Outr Resulting Lab MICROBIOLOGY - GENER AL ORDERABLES Final Result [facility] [address] [place] [address] documented in this encounter Visit Diagnoses Not on filedocumented in this encounter Care Teams Woven Wood Shade Assembler Relationship Specialty Start Date End Date Anand Rae DO PCP - General 02/03/16 documented as of this encounter
--- OUTSIDE RECORDS SUMMARY | 2024-05-22 19:40 | XMS_ITS | Encounter Summary ---
Author Organization [facility] Address [address] [place] [address] Care Team Providers Care Commissioned Fire Officer Name Role Phone Unavailable Primary Care Provider Unavailabl e Encounter Details Date Type Department Care Team (Late st Contact Info) Description 05/01/2006 14:15 EST Hospital Encounter [facility] - Other [address] [place] [address] Amandeep Ellis DO [address] [place], [place] [address] [phone] Discharge Disposition: Auto Discharge Social History Tobacco Use Types Packs/Day Years Used Date Smoking Tobacco: Never Assessed Comments Unknown Sex and Gender Information Value Date Recorded Sex Assigned at Not on file Legal Sex Female 18:37 EST Gender Identity Not on file Sexual Orientation Not on file documented as of this encounter Discharge Disposition Disposition Code Departure Means Destination Auto Discharge documented in this encounter Plan of Treatment Not on file documented as of this encounter Procedures Procedure Name Priority Date/Time Associated Diagnosis Comments HSV (ONLY) CULTURE Routine 05/01/2006 14 :15 EST documented in this encounter Results * HSV (ONLY) CULTURE (05/01/2006 14:15 EST) Specimen Description Thigh [facility] Result No herpes simplex recovered [facility] Report Status Final [id number] [facility] 05/01/2006 14:1 5 EST 05/01/2006 19:35 EST Amandeep S [place] DO MICROBIOLOGY - GENERAL ORDERABLE S Final Result [facility] [address] [place] [address] documented in this encounter Visit Diagnoses Not on filedocumented in this encounter
--- OUTSIDE RECORDS SUMMARY | 2024-05-22 19:40 | XMS_ITS | Encounter Summary ---
Author Organization [facility] Address [address] [place] [address] Care Team Providers Care Ip Architect Name Role Phone Amandeep Ellis DO Primary Care Provider [phone] Encounter Details Date Type Department Care Team (Latest Contact Info) Description 01/30/2016 9:26 EDT - 01/30/2016 23:59 EDT Hospital Encounter [address] [address] Unknown, Provider, MD Discharge Disposition: Home or Self Care Social History Tobacco Use Types Packs/Day Years Used Date Smoking Tobacco: Never Assessed Comments Unknown Sex and Gender Information Value Date Recorded Sex Assigned at Not on file Legal Sex Female 18:37 EST Gender Identity Not on file Sexual Orientation Not on file documented as of this encounter Discharge Disposition Disposition Code Departure Means Destination Home or Self Detention documented in this encounter Plan of Treatment Not on file documented as of this encounter Visit Diagnoses Not on filedocumented in this encounter Care Teams Ip Architect Relationship Specialty Start Date End Date Amandeep Ellis DO [address] [phone] PCP - General 11/12/08 02/02/16 documented as of this encounter
--- OUTSIDE RECORDS SUMMARY | 2024-05-22 19:40 | XMS_ITS | Encounter Summary ---
Author Organization [facility] Address [address] [place] [address] Care Team Providers Care Water/Wastewater Engineer Name Role Phone Unavailable Primary Care Provider Unavailabl e Encounter Details Date Type Department Care Team (Late st Contact Info) Description 12/27/2005 17:39 EDT Hospital Encounter [address] [address] Jenny Farah MD [address] [place] [phone] Discharge Disposition: Auto Discharge Social History Tobacco [...]
--- OUTSIDE RECORDS SUMMARY | 2024-05-22 19:40 | XMS_ITS | Encounter Summary ---
Author Organization [facility] Address [address] [place] [address] Care Team Providers Care Heel Stainer Name Role Phone Unavailable Primary Care Provider Unavailabl e Encounter Details Date Type Department Care Team (Latest Contact Info) Description 07/29/2005 1:16 EST - 07/29/2005 11:59 EST Hospital Encounter [facility] - [address] [address] Emergency, Default, MD Discharge Disposition: Home or Self Care [...] Code Departure Means Destination Home or Self Care documented in this encounter Plan of Treatment Not on file documented as of this encounter Visit Diagnoses Not on filedocumented in this encounter
--- OUTSIDE RECORDS SUMMARY | 2024-05-22 19:40 | XMS_ITS | Referral Summary ---
Author Organization [facility] Address [address] [place] [address] Care Team Providers Care Nailing Machine Operator Name Role Phone Anand Rae DO Primary Care Provider [phone] Social History Tobacco Use Types Packs/Day Years Used Date Smoking Tobacco: Never Assessed Comments Unknown Sex and Gender Information Value Date Recorded Sex Assigned at Not on file Legal Sex Female 18:37 EST Gender Identity Not on file Sexual Orientation Not on file Plan of Treatment Not on file Care Teams Nailing Machine Operator Relationship Specialty Start Date End Date Anand Rae DO PCP - General 02/03/16
--- OUTSIDE RECORDS SUMMARY | 2024-05-22 19:40 | XMS_ITS | Encounter Summary ---
Author Organization [facility] Address [address] [place] [address] Care Team Providers Care Supervisor Weaving Name Role Phone Unavailable Primary Care Provider Unavailabl e Encounter Details Date Type Department Care Team (Late st Contact Info) Description 12/04/2006 17:[address] [facility] - Other [address] [place] [address] Amandeep Ellis S, DO [address] [phone] Discharge Disposition: Home or Self Care Social [...] Procedure Name Priority Date/Time Associated Diagnosis Comments N. GONORRHOEAE AMPLIFIED PROBE Routine 12/04/2006 16:00 EDT ZZCHLAMYDIA TRACHOMATIS AMPLIFIED PROBE Routine 12/04/2006 16:00 EDT documented in this encounter Results * N. GONORRHOEAE AMPLIFIED PROBE (12/04/2006 16:00 EDT) Result No Neisseria gonorrhoeae DNA detected by rail transit operator mediated amplification. [facility] Report Status Final [id number] [facility] Specimen Description Cervix [facility] 12/04/2006 16:0 0 EDT 12/05/2006 14:09 EDT us Amandeep Ellis DO MICROBIOLOGY - GENERAL ORDERABLE S Final Result Performing Organization Address [facility] Co de Phone Number [facility] [address] [place] [address] * CHLAMYDIA TRACHOMATIS AMPLIFIED PROBE (12/04/2006 16:00 EDT) Specimen Description Cervix [facility] Result No Chlamydia trachomatis DNA detected by rail transit operator mediated amplification. [facility] Report Status Final [id number] [facility] 12/04/2006 16:0 0 EDT 12/05/2006 14:09 EDT us Amandeep Ellis DO MICROBIOLOGY - GENERAL ORDERABLE S Final Result Performing Organization Address [facility] Co de Phone Number [facility] [address] [place] [address] documented in this encounter Visit Diagnoses Not on filedocumented in this encounter
--- OUTSIDE RECORDS SUMMARY | 2024-05-22 19:40 | XMS_ITS | Encounter Summary ---
Author Organization [facility] Address [address] [place] [address] Care Team Providers Care Outsole Cementer Name Role Phone Unavailable Primary Care Provider Unavailabl e Encounter Details Date Type Department Care Team (Late st Contact Info) Description 11/10/2008 Orders Only [facility] [address] [address] Sandro Castano MD [address] [place] [phone] Social History Tobacco Use Types Packs/Day Years [...] Procedure Name Priority Date/Time Associated Diagnosis Comments COMPLETE BLOOD COUNT Routine 11/10/2008 21:43 EDT TSH Routine 11/10/2008 21:43 EDT documented in this encounter Results * TSH (11/10/2008 21:43 EDT) TSH 3.45 0.35 - 5.00 uIU/ml [facility] 11/10/2008 21:4 3 EDT 11/10/2008 21:43 EDT us Sandro Castano MD CHEMISTRY & BLOOD GAS O RDERABLES Final Result Performing Organization Address [facility]/ZIP Co de Phone Number [facility] [address] [place] [address] * HEMAGRAM (11/10/2008 21:43 EDT) WBC 7.58 4.0 - 12.4 K/cmm [facility] RBC 4.73 3.86 - 5.04 M/cmm [facility] Hemoglobin 14.3 11.6 - 15.2 gm/dl [facility] HCT 42.1 34.9 - 44.4 % [facility] MCV 89 81 - 98 fl [facility] MCH 30.3 26.7 - 33.3 pg [facility] MCHC 33.9 32.1 - 35.9 gm/dl [facility] PLT 218 141 - 320 K/cmm [facility] RDW-CV 13.1 11.7 - 14.6 % [facility] 11/10/2008 21:4 3 EDT 11/10/2008 21:43 EDT us Sandro Castano MD HEMATOLOGY & PF4 ORDERA BLES Final Result Performing Organization Address [facility] Co de Phone Number [facility] [address] [place] [address] documented in this encounter Visit Diagnoses Not on filedocumented in this encounter
--- OUTSIDE RECORDS SUMMARY | 2024-05-22 19:40 | XMS_ITS | Encounter Summary ---
Author Organization [facility] Address [address] [place] [address] Care Team Providers Care Health And Safety Representative Name Role Phone Unavailable Primary Care Provider Unavailabl e Encounter Details Date Type Department Care Team (Latest Contact Info) Description 09/06/2008 8:04 EST - 09/06/2008 11:59 EST Hospital Encounter [facility] Emergency Department - [address] [address] Emergency, Default, MD Discharge Disposition: Home or [...]
--- OUTSIDE RECORDS SUMMARY | 2024-05-22 19:40 | XMS_ITS | Encounter Summary ---
Author Organization [facility] Address [address] [place] [address] Care Team Providers Care Musical Instrument Mechanic Name Role Phone Anand Rae DO Primary Care Provider [phone] Encounter Details Date Type Department Care Team (Latest Contact Info) Description 08/07/2019 Lab Requisition [facility] Pathology & Laboratory Medicine - [address] [address] Nadine Mcduffie MD [address] [place] [phone] Encounter for general adult medical examination without abnormal findings; Encounter for screening for malignant neoplasm of cervix; Encounter for gynecological examination (general) (routine) without abnormal findings Social History Tobacco Use Types Packs/Day Years [...] Procedure Name Priority Date/Time Associated Diagnosis Comments PAP TEST Today 08/05/2019 10:40 EST Encounter for general adult medical examination without abnormal findings Encounter for screening for malignant neoplasm of cervix Encounter for gynecological examination (general) (routine) without abnormal findings HPV DNA DETECTION WITH GENOTYPING, PCR Today 08/05/2019 10:40 EST Encounter for general adult medical examination without abnormal findings Encounter for screening for malignant neoplasm of cervix Encounter for gynecological examination (general) (routine) without abnormal findings documented in this encounter Results * HUMAN PAPILLOMAVIRUS (HPV) DETECTION-HIGH RISK TYPES (08/05/2019 10:40 EST) HPV other High Risk types, PCR Negative Negative 08/14/2019 15:21 [facility] Comment:No E6 or E7 mRNA is detected from HPV types 16,18,31,33,35,39,45,51,52,56,58,59,66, and 68 by motor vehicles inspector mediated amplification. Papanicolaou smear specimen (specimen) CERVIX UTERI STRUCTURE / Unknown 08/05/2019 10:40 EST 08/13/2019 11:16 EST us Nadine Mcduffie MD MICROBIOLOGY - GENERAL ORDERAB LES Final Result [facility] [address] [place] [address] * PAP TEST (08/05/2019 10:40 EST) Specimens A. Cervix and/or Endocervix, , ThinPrep Imaging System with Manual Evaluation 08/14/2019 15:21 [facility] Specimen Adequacy Satisfactory for Evaluation - transformation zone component present 08/14/2019 15:21 [facility] General Categorization Negative for intraepithelial lesion or malignancy 08/14/2019 15:21 [facility] Attestation By the signature below, the attending physician certifies that they have personally conducted a gross and/or microscopic examination of the described specimens and rendered or confirmed the above diagnosis. 08/14/2019 15:21 [facility] at 1521 Clinical History NONE 08/14/19 20 15:21 [facility] HPV The result for the Human Papillomavirus (HPV) Detection-High Risk Types is Negative. No E6 or E7 mRNA is detected from HPV types 16,18,31,33,35,39 ,45,51,52,56,58,5 9,66, and 68 by motor vehicles inspector mediated amplification.Rupal ting was performed on specimen [id number] and was resulted on 08/14/2019 1514 EST by JAJA, LAB INSTRUMENT RESULTS IN 08/14/2019 15:21 EST [facility] Scanned Images 08/14/2019 15:21 EST [facility] Papanicolaou smear specimen (specimen) CERVIX UTERI STRUCTURE / Unknown 08/05/2019 10:40 EST 08/07/2019 14:08 EST us Nadine Mcduffie MD PATHOLOGY ORDERABLES Final Res ult [facility] [address] [place] [address] documented in this encounter Visit Diagnoses Diagnosis Encounter for general adult medical examination without abnormal findings Unspecified general medical examination Encounter for screening for malignant neoplasm of cervix Screening for malignant neoplasm of the cervix Encounter for gynecological examination (general) (routine) without abnormal findings documented in this encounter Care Teams Musical Instrument Mechanic Relationship Specialty Start Date End Date Anand Rae DO PCP - General 02/03/16 documented as of this encounter
--- OUTSIDE RECORDS SUMMARY | 2024-05-22 19:40 | XMS_ITS | Clinical Summary ---
Author Organization [facility] Address [address] [place] [address] Care Team Providers Care Special Education Associate Name Role Phone Anand Rae DO Primary Care Provider [phone] Social History Tobacco Use Types Packs/Day Years Used Date Smoking Tobacco: Never Assessed Comments Unknown Sex and Gender Information Value Date Recorded Sex Assigned at Not on file Legal Sex Female 18:37 EST Gender Identity Not on file Sexual Orientation Not on file Plan of Treatment Health Maintenance Due Date Last Done Comments Hepatitis C Screen 1980 Hepatitis B Vaccine (1 of 3 - 19+ 3-dose series) 12/30 COVID-19 Vaccine (2023- season) 2024 Care Teams Special Education Associate Relationship Specialty Start Date End Date Anand Rae DO PCP - General 02/03/16
--- OUTSIDE RECORDS SUMMARY | 2024-05-22 19:40 | XMS_ITS | Encounter Summary ---
Author Organization [facility] Address [address] [place] [address] Care Team Providers Care Senior Pensions Administrator Name Role Phone Amandeep Ellis DO Primary Care Provider [phone] Encounter Details Date Type Department Care Team (Late st Contact Info) Description 12/27/2005 Office Visit [facility] [address] [place] [address] Jenny Farah MD [address] [place] [phone] Social History Tobacco Use Types Packs/Day Years Used Date Smoking Tobacco: Never Assessed Comments Unknown Sex and Gender Information Value Date Recorded Sex Assigned at Not on file Legal Sex Female 18:37 EST Gender Identity Not on file Sexual Orientation Not on file documented as of this encounter Progress Notes * Jenny Farah MD - 08/26/2009 1832 EST Care Center - Physician Summary Registration Date/Time: 12/27/2005 17:40 Time Seen: 18:14 . Arrived- By private vehicle. Historian - patient. HISTORY OF PRESENT ILLNESS Chief Complaint- insect bite. This started last night and is still present. It was abrupt in onset.It is described as itchy and painful. A cause has been identified. The patient had a recent insect bite. The patient has had similar symptoms once previously ( 2 days ago). These were as bad. Not recently seen/assessed. REVIEW OF SYSTEMS The patient has had chills. No fever, enlarged lymph nodes or vomiting. PAST HISTORY See nurses notes. Anxiety with panic attacks. No history of previous surgery. Medications: Xanax, as needed. Allergies: ( AB cannot remember name). PENICILLIN. SULFA DRUGS. SOCIAL HISTORY Smoker: 1 pack per day. The patient lives alone. Patient is employed (works at the [employer]). ADDITIONAL NOTES The nursing notes have been reviewed. PHYSICAL EXAM Appearance: Alert. Oriented X3. No acute distress. Vital Signs: Have been reviewed - Skin: Rash present on the right ankle. The rash is erythematous. There is swelling. No warmth, lymphangitis or tenderness. Extremities: ( no RLE lymphadenopathy). Neuro: Oriented X 3. PROGRESS AND PROCEDURES Patient counseled regarding the patient's diagnosis and need for follow-up. Disposition: Discharged home in stable condition (18:25 ). CLINICAL IMPRESSION Insect bites . INSTRUCTIONS See instructions for insect bite. (Electronically signed by Jenny Farah M.D. 01/06/2006 16:54) Care Center - Nursing Summary Registration Date/Time: 12/27/2005 17:40 TRIAGE Initial Assessment Triage time 17:54 . Temp: 97.6 oral. --1800 Wendy Hernandez R.N. BP: 118 / 74 sitting L arm manual (reg adult cuff). HR: 80 regular. RR: 16 regular. --1802 Wendy Hernandez R.N. Medications None. Xanax: 0.5mg, as needed. --1800 Wendy Hernandez R.N. Allergies ( and an antibiotic pt can't recall the name of. ). PENICILLIN. SULFA DRUGS. --1800 Wendy Hernandez R.N. History Chief Complaint: ( bug bite right ankle, swollen and painful). This started last night. Pain level now: 4/10. ( Last Monday got a bite on her hand, which swelled x 24 hrs.). The patient has had fever. Treatment HEDGE FUND ACCOUNTANT: Applied ice. Symptoms improved after treatment. ( Claritin). PAST HX: Asthma. Anxiety. No history of previous surgery. SOCIAL HX: Cigarette smoker: 1 pack per day. Occasional alcohol use; consumes one liquor weekly andwine weekly. Arrived by private vehicle. Historian: patient. --1800 Wendy Hernandez R.N. PHYSICAL ASSESSMENT Ambulatory to room. Alert. Oriented X 3. Skin is warm and dry. ( Right ankle red and swollen. Painful and itchy. ). --1802 Wendy Hernandez R.N. NURSING PROGRESS NOTES Progress Two patient identifiers checked. Checked patient name and birthdate. Bed placed in lowest position.Brakes of bed on. Patient ready for evaluation - chart flagged. --1802 Wendy Hernandez R.N. ( Ice pack applied, right ankle elevated.). --1805 Wendy Hernandez R.N. DISPOSITION / DISCHARGE Condition at departure: stable. No learning barriers present. Discharge instructions reviewed with the patient. Patient verbalized understanding. Written instructions provided in Indonesian. The patientwas discharged home. The patient left the Emergency Department ambulatory and via private vehicle. P atient driving. --183 Wendy Hernandez R.N. Locked/Released at 12/27/2005 18:32 by Wendy Hernandez R.N. documented in this encounter Plan of Treatment Not on file documented as of this encounter Visit Diagnoses Not on filedocumented in this encounter Care Teams Senior Pensions Administrator Relationship Specialty Start Date End Date Amandeep Ellis DO [address] [place] [phone] PCP - General 11/12/08 02/02/16 documented as of this encounter
--- OUTSIDE RECORDS SUMMARY | 2024-05-22 19:40 | XMS_ITS | Encounter Summary ---
Author Organization [facility] Address [address] [place] [address] Care Team Providers Care Shoe Repair Cobbler Name Role Phone Unavailable Primary Care Provider Unavailabl e Encounter Details Date Type Department Care Team (Late st Contact Info) Description 04/17/2006 8:44 EDT - 04/17/2006 11:59 EDT Hospital Encounter [facility] - Other [address] [place] [address] Amandeep Ellis S, DO [address] [place] [phone] Discharge Disposition: Home or Self Care Social [...] Diagnosis Comments N. GONORRHOEAE AMPLIFIED PROBE Routine 04/17/2006 12:00 EDT ZZCHLAMYDIA TRACHOMATIS AMPLIFIED PROBE Routine 04/17/2006 12:00 EDT documented in this encounter Results * N. GONORRHOEAE AMPLIFIED PROBE (04/17/2006 12:00 EDT) Result No Neisseria gonorrhoeae DNA detected by electron beam welding machine operator mediated amplification. [facility] Report Status Final [id number] [facility] Specimen Description Cervix [facility] 04/17/2006 12:0 0 EDT 04/17/2006 14:07 EDT us Amandeep Quiñonez Caleb DO MICROBIOLOGY - GENERAL ORDERABLE S Final Result Performing Organization Address [facility] de Phone Number [facility] [address] [place] [address] * CHLAMYDIA TRACHOMATIS AMPLIFIED PROBE (04/17/2006 12:00 EDT) Specimen Description Cervix [facility] Result No Chlamydia trachomatis DNA detected by electron beam welding machine operator mediated amplification. [facility] Report Status Final [id number] [facility] 04/17/2006 12:0 0 EDT 04/17/2006 14:07 EDT us Amandeep Ellis DO MICROBIOLOGY - GENERAL ORDERABLE S Final Result Performing Organization Address [facility] de Phone Number [facility] [address] [place] [address] documented in this encounter Visit Diagnoses Not on filedocumented in this encounter
--- OUTSIDE RECORDS SUMMARY | 2024-05-22 19:40 | XMS_ITS | Encounter Summary ---
Author Organization [facility] Address [address] [place] [address] Care Team Providers Care Policy Manager Name Role Phone Amandeep Ellis DO Primary Care Provider [phone] Encounter Details Date Type Department Care Team (Late st Contact Info) Description 07/29/2005 Office Visit [facility] - [facility] [address] [place] [address] Chidi Adams PA [address] [place] [id number] Social History Tobacco Use Types Packs/Day Years Used Date Smoking Tobacco: Never Assessed Comments Unknown Sex and Gender Information Value Date Recorded Sex Assigned at Not on file Legal Sex Female 18:37 EST Gender Identity Not on file Sexual Orientation Not on file documented as of this encounter Progress Notes * Chidi Adams - 09/02/2009 0516 EST Department - Physician Summary Registration Date/Time: 07/29/2005 1:16 Arrived- By private vehicle. Historian - patient. HISTORY OF PRESENT ILLNESS Chief Complaint: INTOXICATED. Substances abused: Last drink less than 12 hours ago. Had three drinks one with a shot that she requested the two others had the extra etoh that the pt was unaware was in the drinks. Became anxious and . The symptoms are described as moderate. No injuries noted. Patient has not had similar symptoms previously. PAST HISTORY See nurses notes. Medications: See nurses notes. Allergies: See nurses notes. ADDITIONAL NOTES The nursing notes have been reviewed. PHYSICAL EXAM Appearance: Alert. Oriented X3. No acute distress. Head: Head atraumatic. Eyes: Pupils equal, round and reactive to light. ENT: Airway intact. CVS: Normal heart rate and rhythm. Respiratory: No respiratory distress. Abdomen: Abdomen soft and nontender. Back: Normal inspection. Neuro: Alert. Oriented X 3. Mood/affect normal. Speech normal. PROGRESS AND PROCEDURES E.D. Course: Pt appeared more comfortable, smiling and conversant. request to go home. ED Attending on duty and available for supervision: Angel Herrera. Disposition: Discharged home. Condition: good. CLINICAL IMPRESSION Anxiety . Alcohol intoxication . INSTRUCTIONS Home to rest lots of fluids . Warnings: GENERAL WARNINGS: Return or contactyour physician immediately if your condition worsens or changes unexpectedly, if not improving as expected, or if other problems arise. Follow-up: Follow up with yourdoctor as needed. (Electronically signed by Chidi Adams P.A. 07/29/2005 5:46) Department - Nursing Summary Registration Date/Time: 07/29/2005 1:16 TRIAGE Initial Assessment Acuity: LEVEL 4.35.1 tympanic. Alert. --0120 Kathy Thomas R.N. Medications None. --0120 Kathy Thomas R.N. Allergies PENICILLIN. SULFA DRUGS. --0118 Kathy Thomas R.N. History Chief Complaint: ( states drank too much and now am anxious statesvomited x 3). This started just prior to arrival. Pain level now: 0/10. PAST HX: Last normal menstrual period - denies . ( asthma). SOCIAL HX: Smoker. Alcohol use. No report of abuse. Arrived by private vehicle and accompanied by friend. Historian: patient. --0120 Kathy Thomas R.N. 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 --0129 Kathy Thomas R.N. Interventions To room. --0120 Kathy Thomas R.N. NURSING PROGRESS NOTES Progress Patient gowned. Head of bed elevated. ( visitor supportive at BS, pt alert and cooperative.). Call light placed in reach. Side rails up x 1. Bed placed in lowest position. Brakes of bed on. --0129 Kathy Thomas R.N. ( visitor supportive at ). The patient reports no complaints and the patient is calm and resting quietly. Patient waiting for disposition. --030 Kathy Thomas R.N. BP: 108 / 59. HR: 90. RR: 18. --034 Kathy Thomas R.N. PHENERGAN 25mg IM left gluteus wander. Sedative drug warning given to the patient and patient's brake operator helper. . --034 Kathy Thomas R.N. ( amb to BR with steady gait). The patient is calm and resting quietly. Overall patient status - the patient states feels better. --034 Kathy Thomas R.N. Patient waiting for disposition. --034 Kathy Thomas R.N. DISPOSITION / DISCHARGE Patient reports pain level on departure as 0/10. Condition at departure: improved and stable. Fall risk assessment completed. No fall risk identified. No learning barriers present. Discharge instructions reviewed with the patient and brake operator helper. Reviewed warnings. Reviewed referrals. Activity restrictions reviewed. Patient and brake operator helper verbalized understanding. Written instructions provided in Yi. The patient was discharged home and accompanied by brake operator helper. The patient left the Emergency Department ambulatory and via private vehicle. Rebar Worker driving. --346 Carole Adame R.N. Locked/Released at 07/29/2005 3:47 by Kathy Thomas R.N. documented in this encounter Plan of Treatment Not on file documented as of this encounter Visit Diagnoses Not on filedocumented in this encounter Care Teams Policy Manager Relationship Specialty Start Date End Date Amandeep Ellis DO [address] [place] [address] [phone] PCP - General 11/12/08 02/02/16 documented as of this encounter
--- OUTSIDE RECORDS SUMMARY | 2024-05-22 19:40 | XMS_ITS | Encounter Summary ---
Author Organization [facility] Address [address] [place] [address] Care Team Providers Care Sales Account Associate Name Role Phone Amandeep Ellis DO Primary Care Provider Encounter Details Date Type Department Care Team (Late st Contact Info) Description 02/22/2007 Results Only [facility] - [facility] conversion [address] [place] [address] Backup, TALISHA Riojas [address] [place] [address] Social History Tobacco Use Types Packs/Day Years [...] Procedure Name Priority Date/Time Associated Diagnosis Comments THYROID CASCADE Routine 02/22/2007 15:30 EDT BACTERIAL CULTURE, URINE Routine 02/22/2007 15:30 EDT documented in this encounter Results * BACTERIAL CULTURE, URINE (02/22/2007 15:30 EDT) Specimen Description Urine [facility] Result Greater than 100,000 CFU/ml ESCHERICHIA COLI [facility] Report Status Final [id number] [facility] 02/22/2007 15:3 0 EDT 02/22/2007 19:40 EDT Narrative Organism Antibiotic Method Susceptibility Greater than 100,000 cfu/mlescherichia coli Ampicillin SUSCEPTIBILITY (JUAN) 1 Susceptible Susceptible Greater than 100,000 cfu/mlescherichia coli Cefazolin SUSCEPTIBILITY (JUAN) <=8 Susceptible Susceptible Greater than 100,000 cfu/mlescherichia coli Gentamicin SUSCEPTIBILITY (JUAN) <=0.5 Susceptible Susceptible Greater than 100,000 cfu/mlescherichia coli Trimethoprim-Sulfametho xazole SUSCEPTIBILITY (JUAN) <=.5/9.5 Susceptible Susceptible Greater than 100,000 cfu/mlescherichia coli Nitrofurantoin SUSCEPTIBILITY (JUAN) <=32 Susceptible Susceptible Greater than 100,000 cfu/mlescherichia coli Tobramycin SUSCEPTIBILITY (JUAN) <=0.5 Susceptible Susceptible Greater than 100,000 cfu/mlescherichia coli Imipenem SUSCEPTIBILITY (JUAN) <=4 Susceptible Susceptible Greater than 100,000 cfu/mlescherichia coli Ceftriaxone SUSCEPTIBILITY (JUAN) <=8 Susceptible Susceptible Greater than 100,000 cfu/mlescherichia coli Ciprofloxacin SUSCEPTIBILITY (JUAN) <=0.5 Susceptible Susceptible Greater than 100,000 cfu/mlescherichia coli Piperacillin Tazobactam SUSCEPTIBILITY (JUAN) <=8 Susceptible Susceptible us Amandeep Ellis DO MICROBIOLOGY - GENERAL ORDERABLE S Final Result Performing Organization Address [facility] Co de Phone Number [facility] [address] [place] [address] * THYROID CASCADE (02/22/2007 15:30 EDT) TSH 3.29 0.35 - 5.00 uIU/mL [facility] Comment: TSH cascade is not recommended for patients in which pituitary or hypothalamic disorders are suspected. 02/22/2007 15:3 0 EDT 02/22/2007 19:22 EDT us Beulah Backup PA CHEMISTRY & BLOOD GAS ORDERABLES Final Result Performing Organization Address [facility] Co de Phone Number [facility] [address] [place] [address] documented in this encounter Visit Diagnoses Not on filedocumented in this encounter Care Teams Sales Account Associate Relationship Specialty Start Date End Date Amandeep Ellis DO [address] [place] [id number] PCP - General 11/12/08 02/02/16 documented as of this encounter
--- OUTSIDE RECORDS SUMMARY | 2024-05-22 19:40 | XMS_ITS | Encounter Summary ---
Author Organization [facility] Address [address] [place] [id number] Care Team Providers Care Paving Inspector Name Role Phone Anand Rae DO Primary Care Provider [phone] Encounter Details Date Type Department Care Team (Late st Contact Info) Description 06/30/2021 Lab Requisition [facility] Pathology & Laboratory Medicine - [address] [address] Outr Resulting Lab, Provider Social History Tobacco [...] Comments ZZCOVID-19 TEST [facility] PCR Today 06/30/2021 12:20 EST COVID-19 TESTING Routine 06/30/2021 12:2 0 EST documented in this encounter Results * COVID-19 TEST [facility] PCR (06/30/2021 12:20 EST) Swab 06/30/2021 12:2 0 EST 06/30/2021 21:36 EST us Provider Outr Resulting Lab MICROBIOLOGY - GENER AL ORDERABLES Final Result [facility] [address] [place] [address] * COVID-19 TESTING (06/30/2021 12:20 EST) COVID-19 rt-PCR Result Negative Negative 07/01/2021 16:09 EST [facility] Comment: This test has not been FDA cleared or approved. This test has been authorized by FDA under an EUA for use by authorized laboratories. This test has been authorized only for detection of nucleic acid from 2019-nCoV, not for any other viruses or pathogens. This test is only authorized for the duration of the declaration that circumstances exist justifying the authorization of emergency use of in vitro diagnostic tests for detection and/or diagnosis of 2019-nCoV under section 564(b)(1) of Act, 21 U.S.C ?? 360bbb-3(b) (1), unless the authorization is terminated or revoked sooner. Negative results do not preclude 2019-nCoV infection and should not be used as the sole basis for treatment or other patient management decisions. Negative results must be combined with clinical observations, patient history, and epidemiological information. Performed on the Vision Source Fusion instrument Performing Lab [facility] 07/01/2021 16:09 EST [facility] Swab 06/30/2021 12:2 0 EST 06/30/2021 21:36 EST us Provider Outr Resulting Lab MICROBIOLOGY - GENER AL ORDERABLES Final Result [facility] [address] [place] [address] documented in this encounter Visit Diagnoses Not on filedocumented in this encounter Care Teams Paving Inspector Relationship Specialty Start Date End Date Anand Rae DO PCP - General 02/03/16 documented as of this encounter
--- OUTSIDE RECORDS SUMMARY | 2024-05-22 19:40 | XMS_ITS | Encounter Summary ---
Author Organization [facility] Address [address] [place] [address] Care Team Providers Care Oxygen Equipment Technician Name Role Phone Unavailable Primary Care Provider Unavailabl e Encounter Details Date Type Department Care Team (Latest Contact Info) Description 12/05/2006 14:55 EDT Hospital Encounter [facility] Emergency Department - [facility] [address] [place] [address] Emergency, Default, MD Discharge Disposition: Home or [...] Procedure Name Priority Date/Time Associated Diagnosis Comments RAD US ABDOMEN ONE ORGAN/QUADRANT 12/05/2006 18:45 EDT RAD US PELVIS, TRANSVAGINAL, AND LIMITED DOPPLER 12/05/2006 18:20 EDT URINE CULTURE IF POSITIVE Routine 12/05/2006 17:30 EDT URINE CHEMICAL (DIP) & SEDIMENT (MICRO) WITHOUT REFLEX TO CULTURE Routine 12/05/2006 17:30 EDT BACTERIAL CULTURE, URINE Routine 12/05/2006 17:30 EDT HOLD SST Routine 12/05/2006 16:20 EDT PROFILE ED CARDIAC PACK Routine 12/05/2006 16:20 EDT COMPLETE BLOOD COUNT Routine 12/05/2006 16:20 EDT ZZVAGINITIS EXAM Routine 12/05/2006 15:4 6 EDT documented in this encounter Results * RAD US ABDOMEN ONE ORGAN/QUADRANT (12/05/2006 18:45 EDT) Anatomical Region Laterality Modality Other 12/05/2006 18:4 5 EDT Narrative 2008 13:50 EDT SUDDEN ONSET RLQ PAIN. R/O CYST, APPENDICITIS. US PELVIS, TRANSVAGINAL, AND LMT DOPPLER ??Dec 05, 2006 6:37:28 PM Signs and Symptoms:: ??SUDDEN ONSET RLQ PAIN. R/O CYST, APPENDICITIS. Findings: Transvaginal images of the pelvis show a uterus that measures 6.3 x 3.4 x 5.1 cm. The uterus appears normal. The endometrial stripe measures 6.7 mm in double thickness measurement. Incidental note is made of a nabothian cyst A small amount of free fluid is present the cul-de-sac, physiologic. The right ovary measures 2.4 x 1.2 x 2.5 cm. The left ovary measures 2.7 x 1.7 x 2.0 cm. Both ovaries have a normal sonographic appearance. Doppler evaluation shows arterial and venous flow to both ovaries. Additional images performed in the right lower quadrant did not identify the appendix, but showed no free fluid. Impression: 1. Normal transvaginal pelvic ultrasound. 2. Appendix not identified. If clinical suspicion is high a CT would be recommended. Addendum Begins This report has been addended for association with another exam, for billing purposes. The text has not been altered. ?? Addendum Ends I have personally reviewed the images and the above interpretation and agree with the findings. Procedure Note Celestine Knight Jr., MD / Connor Motley, DO - 2008 SUDDEN ONSET RLQ PAIN. R/O CYST, APPENDICITIS. US PELVIS, TRANSVAGINAL, AND LMT DOPPLER Dec 05, 2006 6:37:28 PM Signs and Symptoms:: SUDDEN ONSET RLQ PAIN. R/O CYST, APPENDICITIS. Findings: Transvaginal images of the pelvis show a uterus that measures 6.3 x 3.4 x 5.1 cm. The uterus appears normal. The endometrial stripe measures 6.7 mm in double thickness measurement. Incidental note is made of a nabothian cyst A small amount of free fluid is present the cul-de-sac, physiologic. The right ovary measures 2.4 x 1.2 x 2.5 cm. The left ovary measures 2.7 x 1.7 x 2.0 cm. Both ovaries have a normal sonographic appearance. Doppler evaluation shows arterial and venous flow to both ovaries. Additional images performed in the right lower quadrant did not identify the appendix, but showed no free fluid. Impression: 1. Normal transvaginal pelvic ultrasound. 2. Appendix not identified. If clinical suspicion is high a CT would be recommended. Addendum Begins This report has been addended for association with another exam, for billing purposes. The text has not been altered. Addendum Ends I have personally reviewed the images and the above interpretation and agree with the findings. us Chidi Bowers PA-C IMKd US ORDERABLES Final Resul t * RAD US PELVIS, TRANSVAGINAL, AND LIMITED DOPPLER (12/05/2006 18:20 EDT) Anatomical Region Laterality Modality Other 12/05/2006 18:2 0 EDT Narrative 2008 13:50 EDT SUDDEN ONSET RLQ PAIN. R/O CYST, APPENDICITIS. US PELVIS, TRANSVAGINAL, AND LMT DOPPLER ??Dec 05, 2006 6:37:28 PM Signs and Symptoms:: ??SUDDEN ONSET RLQ PAIN. R/O CYST, APPENDICITIS. Findings: Transvaginal images of the pelvis show a uterus that measures 6.3 x 3.4 x 5.1 cm. The uterus appears normal. The endometrial stripe measures 6.7 mm in double thickness measurement. Incidental note is made of a nabothian cyst A small amount of free fluid is present the cul-de-sac, physiologic. The right ovary measures 2.4 x 1.2 x 2.5 cm. The left ovary measures 2.7 x 1.7 x 2.0 cm. Both ovaries have a normal sonographic appearance. Doppler evaluation shows arterial and venous flow to both ovaries. Additional images performed in the right lower quadrant did not identify the appendix, but showed no free fluid. Impression: 1. Normal transvaginal pelvic ultrasound. 2. Appendix not identified. If clinical suspicion is high a CT would be recommended. Addendum Begins This report has been addended for association with another exam, for billing purposes. The text has not been altered. ?? Addendum Ends I have personally reviewed the images and the above interpretation and agree with the findings. Procedure Note Celestine Knight Jr., MD / Connor Motley, DO - 2008 SUDDEN ONSET RLQ PAIN. R/O CYST, APPENDICITIS. US PELVIS, TRANSVAGINAL, AND LMT DOPPLER Dec 05, 2006 6:37:28 PM Signs and Symptoms:: SUDDEN ONSET RLQ PAIN. R/O CYST, APPENDICITIS. Findings: Transvaginal images of the pelvis show a uterus that measures 6.3 x 3.4 x 5.1 cm. The uterus appears normal. The endometrial stripe measures 6.7 mm in double thickness measurement. Incidental note is made of a nabothian cyst A small amount of free fluid is present the cul-de-sac, physiologic. The right ovary measures 2.4 x 1.2 x 2.5 cm. The left ovary measures 2.7 x 1.7 x 2.0 cm. Both ovaries have a normal sonographic appearance. Doppler evaluation shows arterial and venous flow to both ovaries. Additional images performed in the right lower quadrant did not identify the appendix, but showed no free fluid. Impression: 1. Normal transvaginal pelvic ultrasound. 2. Appendix not identified. If clinical suspicion is high a CT would be recommended. Addendum Begins This report has been addended for association with another exam, for billing purposes. The text has not been altered. Addendum Ends I have personally reviewed the images and the above interpretation and agree with the findings. us Chidi Bowers PA-C IMKd US ORDERABLES Final Resul t * BACTERIAL CULTURE, URINE (12/05/2006 17:30 EDT) Specimen Description Urine [facility] Result Greater than 100,000 CFU/ml ESCHERICHIA COLI 10,000 to 100,000 CFU/ml STAPHYLOCOCCU S, COAGULASE NEGATIVE [facility] Report Status Final [id number] [facility] 12/05/2006 17:3 0 EDT 12/05/2006 19:29 EDT Narrative Organism Antibiotic Method Susceptibility Greater than 100,000 cfu/ml escherichia coli Ampicillin SUSCEPTIBILITY (JUAN) >=32 Resistant Greater than 100,000 cfu/ml escherichia coli Cefazolin SUSCEPTIBILITY (JUAN) <=8 Susceptible Greater than 100,000 cfu/ml escherichia coli Gentamicin SUSCEPTIBILITY (JUAN) 1 Susceptible Greater than 100,000 cfu/ml escherichia coli Trimethoprim-Sulfametho xazole SUSCEPTIBILITY (JUAN) >=16/304 Resistant Greater than 100,000 cfu/ml escherichia coli Nitrofurantoin SUSCEPTIBILITY (JUAN) <=32 Susceptible Greater than 100,000 cfu/ml escherichia coli Tobramycin SUSCEPTIBILITY (JUAN) <=0.5 Susceptible Greater than 100,000 cfu/ml escherichia coli Imipenem SUSCEPTIBILITY (JUAN) <=4 Susceptible Greater than 100,000 cfu/ml escherichia coli Ceftriaxone SUSCEPTIBILITY (JUAN) <=8 Susceptible Greater than 100,000 cfu/ml escherichia coli Ciprofloxacin SUSCEPTIBILITY (JUAN) <=0.5 Susceptible Greater than 100,000 cfu/ml escherichia coli Piperacillin Tazobactam SUSCEPTIBILITY (JUAN) <=8 Susceptible us Default Emergency MD MICROBIOLOGY - GENERAL CRISTHIAN CAR Final Result [facility] [address] [place] [address] * (ABNORMAL) UA WITH MICROSCOPIC (12/05/2006 17:30 EDT) Color, UA Yellow [facility] Clarity, UA Clear [facility] Glucose, UA Norm NORM [facility] Bilirubin, UA Neg NEG [facility] Ketones, UA Neg NEG [facility] Specific [place], Urine 1.015 1.005 - 1.02 [facility] Blood, UA Small(A) NEG [facility] pH, UA 7.0 5.0 - 9.0 [facility] Protein, UA Neg NEG [facility] Urobilinogen, UA Norm NORM mg/dL [facility] Nitrite, UA Pos(A) NEG [facility] Leuk Esterase Small(A) NEG [facility] WBC, UA 10 to 50 0 - 5 /HPF [facility] RBC, UA less than 1 0 - 5 /HPF [facility] Squam Epithel, UA None seen NS /HPF [facility] Renal Epithel, UA None seen NS /HPF [facility] Bacteria, UA Frequent(A) NS /HPF [facility] Crystals, UA None seen /HPF [facility] Hyaline Casts, UA None seen /LPF [facility] UA Comment Microscopic results are unreliable on urines unrefrig >2hrs or refrig >8hrs. [facility] 12/05/2006 17:3 0 EDT 12/05/2006 17:36 EDT us Default Emergency MD URINALYSIS ORDERABLES Final Result Performing Organization Address [facility] Co de Phone Number [facility] [address] [place] [address] * CULTURE IF UA POSITIVE (12/05/2006 17:30 EDT) Culture if Indicated Culture indicated by urinalysis results. [facility] 12/05/2006 17:3 0 EDT 12/05/2006 17:36 EDT us Default Emergency MICROBIOLOGY - GENERAL ORDE RABLES Final Result Performing Organization Address [facility] de Phone Number [facility] [address] [place] [address] * HEMAGRAM (12/05/2006 16:20 EDT) WBC 6.07 4.0 - 12.4 K/cmm [facility] RBC 4.90 3.86 - 5.04 M/cmm [facility] Hemoglobin 15.0 11.6 - 15.2 gm/dl [facility] HCT 43.3 34.9 - 44.4 % [facility] MCV 88 81 - 98 fl [facility] MCH 30.5 26.7 - 33.3 pg [facility] MCHC 34.5 32.1 - 35.9 gm/dl [facility] PLT 193 141 - 320 K/cmm [facility] RDW-CV 12.6 11.7 - 14.6 % [facility] 12/05/2006 16:2 0 EDT 12/05/2006 16:33 EDT Default Emergency MD HEMATOLOGY & PF4 ORDERABLES Final Result Performing Organization Address [facility] de Phone Number [facility] [address] [place] [address] * HOLD SST (12/05/2006 16:20 EDT) Hold SST Hold for further testing. Specimen will be held for 30 days. [facility] 12/05/2006 16:2 0 EDT 12/05/2006 16:24 EDT Default Emergency MD LAB INFO SERVICE AND SUPPOR T & PHONE RESULT Final Result Performing Organization Address [facility] de Phone Number [facility] [address] [place] [address] * PROFILE ED CARDIAC PACK (12/05/2006 16:20 EDT) 12/05/2006 16:2 0 EDT 12/05/2006 16:24 EDT Default Emergency MD PACKAGES & DNA PROBE ORDERA BLES Final Result Performing Organization Address [facility] de Phone Number [facility] [address] [place] [address] * VAGINITIS EXAM (12/05/2006 15:46 EDT) Specimen Description Vagina Specimen submitted on a swab [facility] Gram Smear Result No clue cells present No yeast seen. [facility] Result No Trichomonas antigen detected. [facility] Report Status Final [id number] [facility] 12/05/2006 15:4 6 EDT 12/05/2006 17:04 EDT us Default Emergency MICROBIOLOGY - GENERAL CRISTHIAN CAR Final Result Performing Organization Address City/State/[facility] Co de Phone Number [facility] [address] [place] [address] documented in this encounter Visit Diagnoses Not on filedocumented in this encounter
--- OUTSIDE RECORDS SUMMARY | 2024-05-22 19:40 | XMS_ITS | Encounter Summary ---
Author Organization [facility] Address [address] [place] [address] Care Team Providers Care Clerk Checker Name Role Phone Anand Rae DO Primary Care Provider [phone] Encounter Details Date Type Department Care Team (Late st Contact Info) Description 11/29/2019 Lab Requisition [facility] Pathology & Laboratory Medicine - [address] [address] Outr Resulting Lab, Provider Social History Tobacco [...] Procedure Name Priority Date/Time Associated Diagnosis Comments DO NOT ORDER STANDALONE - BROAD COVID TEST Today 11/29/2019 12:50 EDT COVID-19 TESTING Routine 11/29/2019 12:5 0 EDT documented in this encounter Results * DO NOT ORDER STANDALONE - BROAD COVID TEST (11/29/2019 12:50 EDT) COVID-19 rt-PCR Result NEGATIVE Negative 11/30/2019 20:00 EDT [facility] Comment: 2019-novel Coronavirus (2019-nCoV) not detected by the qRT-PCR assay. Consider testing for other respiratory viruses or re-collecting for 2019-nCoV testing. Note: Optimum timing for peak viral levels during infections caused by 2019-nCoV have not been determined. Collection of multiple specimens from the same patient may be necessary to detect the virus. Limitations Positive results are indicative of active infection with SARS-CoV-2 but do not rule out bacterial infection or co-infection with other viruses. The agent detected may not be the definite cause of disease. In addition, detection of viral RNA may not indicate the presence of infectious virus or that SARS-CoV-2 is the causative agent for clinical symptoms. Negative results do not preclude SARS-CoV-2 infection and should not be used as the sole basis for patient management decisions. Negative results must be combined with clinical observations, patient history, and epidemiological information. False negative results may also occur if amplification inhibitors are present in the specimen or if inadequate numbers of organisms are present in the specimen. Optimum specimen types and timing for peak viral levels during infections caused by SARS-CoV-2 have not been fully determined. Collection of multiple specimens (types and time points) from the same patient may be necessary to detect the virus. The test was validated for use with upper respiratory specimens obtained via nasopharyngeal or oropharyngeal swabs in VTM, UTM, M4, M5, M6, saline, and MTM media. The performance of this test has not been established for other specimens. Specimens collected using other FDA recommended Specimen Collection Materials listed in the FDA COVID-19 Diagnostic [employer] communication (September 26, 2019) are processed with the caveat that they were not all validated for use with this test and the result must be interpreted in this context. Furthermore, a false negative results may occur if a specimen is improperly collected, transported or handled. If the virus mutates in the RT-PCR target region, SARS-CoV-2 may not be detected or may be detected less predictably. Inhibitors or other types of interference may produce a false negative result. An interference study evaluating the effect of common cold medications was not performed. This test is not FDA-cleared but its performance characteristics were established by our CLIA-certified, CAP-accredited, high complexity laboratory in accordance with CLIA regulations, [employer] (CAP) guidelines (Sep 19, 2019), and FDA guidance (Aug 31, 2019). This test is only for use under the Food and Drug Administration's Emergency Use Authorization. Swab ENTIRE NASOPHARYNX / Unknown 11/29/2019 12:50 EDT 11/29/2019 20:43 EDT us Provider Outr Resulting Lab MICROBIOLOGY - GENER AL ORDERABLES Final Result [facility] [place] * COVID-19 TESTING (11/29/2019 12:50 EDT) COVID-19 rt-PCR Result NEGATIVE Negative 11/30/2019 23:57 EDT [facility] Comment: 2019-novel Coronavirus (2019-nCoV) not detected by the qRT-PCR assay. Consider testing for other respiratory viruses or re-collecting for 2019-nCoV testing. Note: Optimum timing for peak viral levels during infections caused by 2019-nCoV have not been determined. Collection of multiple specimens from the same patient may be necessary to detect the virus. Limitations Positive results are indicative of active infection with SARS-CoV-2 but do not rule out bacterial infection or co-infection with other viruses. The agent detected may not be the definite cause of disease. In addition, detection of viral RNA may not indicate the presence of infectious virus or that SARS-CoV-2 is the causative agent for clinical symptoms. Negative results do not preclude SARS-CoV-2 infection and should not be used as the sole basis for patient management decisions. Negative results must be combined with clinical observations, patient history, and epidemiological information. False negative results may also occur if amplification inhibitors are present in the specimen or if inadequate numbers of organisms are present in the specimen. Optimum specimen types and timing for peak viral levels during infections caused by SARS-CoV-2 have not been fully determined. Collection of multiple specimens (types and time points) from the same patient may be necessary to detect the virus. The test was validated for use with upper respiratory specimens obtained via nasopharyngeal or oropharyngeal swabs in VTM, UTM, M4, M5, M6, saline, and MTM media. The performance of this test has not been established for other specimens. Specimens collected using other FDA recommended Specimen Collection Materials listed in the FDA COVID-19 [employer] communication (September 26, 2019) are processed with the caveat that they were not all validated for use with this test and the result must be interpreted in this context. Furthermore, a false negative results may occur if a specimen is improperly collected, transported or handled. If the virus mutates in the RT-PCR target region, SARS-CoV-2 may not be detected or may be detected less predictably. Inhibitors or other types of interference may produce a false negative result. An interference study evaluating the effect of common cold medications was not performed. This test is not FDA-cleared but its performance characteristics were established by our CLIA-certified, CAP-accredited, high complexity laboratory in accordance with CLIA regulations, [employer] [place] [employer] (CAP) guidelines (Sep 19, 2019), and FDA guidance (Aug 31, 2019). This test is only for use under the Food and Drug Administration's Emergency Use Authorization. Performing Lab [facility] 11/30/2019 23:57 EDT [facility] Swab ENTIRE NASOPHARYNX / Unknown 11/29/2019 12:50 EDT 11/29/2019 20:43 EDT us Provider Outr Resulting Lab MICROBIOLOGY - GENER AL ORDERABLES Final Result [facility] [address] [place] [id number] [place] [address] LABORATORY [place] documented in this encounter Visit Diagnoses Not on filedocumented in this encounter Care Teams Clerk Checker Relationship Specialty Start Date End Date Anand Rae DO PCP - General 02/03/16 documented as of this encounter
--- OUTSIDE RECORDS SUMMARY | 2024-05-22 19:40 | XMS_ITS | Encounter Summary ---
Author Organization [facility] Address [address] [place] [address] Care Team Providers Care Rim Turning Finisher Name Role Phone Unavailable Primary Care Provider Unavailabl e Encounter Details Date Type Department Care Team (Latest Contact Info) Description 11/10/2008 9:30 EDT - 11/10/2008 9:31 EDT Hospital Encounter [facility] - Other [address] [place] [address] Sandro Castano MD [address] [place] [address] [address] [place] [address] Discharge Disposition: Home or Self Care Social [...]
--- OUTSIDE RECORDS SUMMARY | 2024-05-22 19:40 | XMS_ITS | Encounter Summary ---
Author Organization [facility] Address [address] [place] [address] Care Team Providers Care Turret Punch Operator Name Role Phone Anand Rae DO Primary Care Provider [phone] Encounter Details Date Type Department Care Team (Late st Contact Info) Description 02/25/2016 Results Only [facility] [phone] Alison Mcduffie MD [address] [place] [phone] Social History Tobacco Use Types Packs/Day Years [...] Name Priority Date/Time Associated Diagnosis Comments PAP TEST- RESULT ONLY Routine 02/25/2016 0:00 EDT documented in this encounter Results * PAP TEST- RESULT ONLY (02/25/2016 0:00 EDT) Pathology Report: CYTOPATHOLOGY REPORT Reports generated via electronic interface contain original data; however they are lacking the format of the original report. Caution should be taken when reading/interpreti ng unformatted reports. Name: ? ARIA GRACIA ? Accession #: ? [id number] : ? 1980 (Age: 35) ??F ?Collect Date: ? 02/25/2016 Location: ? [facility] ? Receive Date: ? 02/29/2016 Provider: ?ALISON MCDUFFIE MD Copy to: ? Specimen/Source: ?Pap Test, Vagina/Cervix, ThinPrep Imaging System with manual evaluation Last Menstrual Period: ? 02/16/16 Hormonal/Contracep tive Status: ? Intrauterine device: Paragard ? SPECIMEN ADEQUACY ? Satisfactory for Evaluation - transformation zone component present GENERAL CATEGORIZATION ? Negative for Intraepithelial Lesion or Malignancy ? Document reviewed and electronically signed by: ? MALDONADO Meza(ASCP) ? Report Date: ??03/03/2016 11:40 End of Report [facility] 02/25/2016 02/29/2016 us Alison Mcduffie MD PATHOLOGY ORDERABLES Final Res ult [facility] [address] [place] [address] documented in this encounter Visit Diagnoses Not on filedocumented in this encounter Care Teams Turret Punch Operator Relationship Specialty Start Date End Date Anand Rae DO PCP - General 02/03/16 documented as of this encounter
--- OUTSIDE RECORDS SUMMARY | 2024-05-22 19:41 | XMS_ITS | Encounter Summary ---
Author Organization [facility] Address [facility] [place] [address] Care Team Providers Care Laboratory Technical Specialist Name Role Phone Nadine Mcduffie MD Primary Care Provider [phone] Reason for Visit * Reason Onset Date Comments Appointment 03/04/2022 Encounter Details Date Type Department Care Team ([facility] st Contact Info) Description 03/04/2022 [place] [address] Mike Perez III, MD [facility] [place] [address] Appointment Social History Tobacco Use Types Packs/Day Years Used Date Smoking Tobacco: Every Day Cigarettes Last attempted to quit: 06/2017 Smokeless Tobacco: Never Alcohol Use Standard Drinks/Week Comments Yes 0.8 (1 standard drink = 0.6 oz p ure alcohol) rare Sex and Gender Information Value Date Recorded Sex Assigned at Not on file Gender Identity Not on file Sexual Orientation Not on file documented as of this encounter Miscellaneous Notes * Telephone Encounter - Sissy Faustin - 03/11/2022 12:50 PM EDT Letter sent. * Telephone Encounter - Sissy Faustin - 03/04/2022 8:49 AM EDT Pt needing first available follow up with Chris. documented in this encounter Plan of Treatment Not on file documented as of this encounter Goals Goal Patient Goal Type Associated Problems Recent Progress Patient-Stated? 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
--- OUTSIDE RECORDS SUMMARY | 2024-05-22 19:41 | XMS_ITS | Encounter Summary ---
[place] [address] Care Team Providers Care Scalp Specialist Name Role Phone Nadine Mcduffie MD Primary Care Provider [phone] Reason for Visit * High Dollar Medication (Routine) - Pending Review Specialty Diagnoses / Procedures Referred By Tonia argueta Referred To Contact Neurology Diagnoses Muscle spasm Procedures Onabotulinumtoxin A (BOTOX) Authorizations Request (IN CLINIC) TC ONABOTULINUMTOXINA, 1 UNIT, INJECTION PRO CHEMODENERVATION ONE EXTREMITY 1-4 MUSCLE(S) Brianna Collado MD [facility] [place] [address] Brianna Collado MD [facility] [place] [address] Referral ID Status Reason Start Date Expiration Date Visits Requested Visits Authorized [id number] Pending Review Consult, Test & Treat 09/06/2022 09/07/2024 4 7 Encounter Details Date Type Department Care Team ([facility] Contact Info) Description 09/08/2023 3:00 PM EST Office Visit Neurology at [address] [phone] Brianna Collado MD [facility] [place] [address] Muscle spasticity Social History Tobacco Use Types Packs/Day Years [...] on file documented as of this encounter Procedure Notes * Brianna Collado MD - 09/08/2023 3:00 PM ESTAssociated Order(s): CHEMODENERVATION W/ EMG GUIDANCE Chemodenervation Procedure Note Diagnosis: spasticity due to MS HPI: She has muscle spasticity and tremor due to MS. She has failed oral muscle relaxers and tremor meds. Keppra was most helpful but caused suicidal ideation. She had a great response to initial botox injections with significantly less tremor in the right arm. She could hold her 's hand and could briefly carry coffee. Still had some tremors in certain positions and noted this coming from the triceps. Pain is almost completely gone when the botox kicks in. Codes for chemodenervation visit: [id number], [id number] Exam: Procedure: A time out was performed The patient was positioned for best access to muscles to be injected. The area was cleaned with alcohol swabs. 200 units of onabotulinumtoxinA was prepared by 1cc saline to 100 units toxin dilution with preservative free saline EMG guidance was used for this procedure for anatomic localization of arm muscles. Injections: RIGHT Triceps 60 units Biceps 40 units Pectoralis 35 units Trapezius 30 units Supraspinatus 35 units 200 units total and 0 waste The patient tolerated the procedure well with no immediate adverse events. Follow up will be in 3 months. Brianna Collado MD [facility] Neurology-Movement Disorders documented in this encounter Plan of Treatment Not on file documented as of this encounter Goals Goal Patient Goal Type Associated Problems Recent Progress Patient-Stated? Author DH Home Medication Compliance and Understanding Patient Facing Action Plan No Chidi Tapia, [facility] Note: Aria hopes to keep relapses from recurring frequently documented as of this encounter Procedures Procedure Name Priority Date/Time Associated Diagnosis Comments CHEMODENERVATION W/ EMG GUIDANCE Routine 09/08/2023 3:00 PM EST documented in this encounter Results * CHEMODENERVATION W/ EMG GUIDANCE (09/08/2023 3:00 PM EST) Narrative Brianna Collado MD - 09/08/2023 3:00 PM EST Brianna Collado MD ? 09/08/2023 ??3:32 PM Chemodenervation Procedure Note Diagnosis: spasticity due to MS HPI: She has muscle spasticity and tremor due to MS. She has failed oral muscle relaxers and tremor meds. Keppra was most helpful but caused suicidal ideation. She had a great response to initial botox injections with significantly less tremor in the right arm. She could hold her 's hand and could briefly carry coffee. Still had some tremors in certain positions and noted this coming from the triceps. Pain is almost completely gone when the botox kicks in. Codes for chemodenervation visit: [id number], [id number] Exam: Procedure: A time out was performed The patient was positioned for best access to muscles to be injected. The area was cleaned with alcohol swabs. 200 units of onabotulinumtoxinA was prepared by 1cc saline to 100 units toxin dilution with preservative free saline EMG guidance was used for this procedure for anatomic localization of arm muscles. Injections: RIGHT Triceps 60 units Biceps 40 units Pectoralis 35 units Trapezius 30 units Supraspinatus 35 units 200 units total and 0 waste The patient tolerated the procedure well with no immediate adverse events. Follow up will be in 3 months. Brianna Collado MD [facility] Neurology-Movement Disorders Brianna Collado MD NEUROLOGY ORDERABL ES documented in this encounter Visit Diagnoses Diagnosis Muscle spasticity Spasm of muscle documented in this encounter Administered Medications Inactive Administered Medications - up to 3 most recent administrations Medication Order MAR Action Action Date Dose Rate Site botulinum toxin type A (Botox) injection 200 Units 200 Units, Intramuscular, ONCE, 1 dose, On Mon09/08/23 at 1530, Routine Given 09/08/2023 3:32 PM EST 200 Units documented in this encounter Care Teams Scalp Specialist Relationship Specialty Start Date End Date Nadine Mcduffie MD [address] [place] [address] PCP - General Family Medicine 03/27/17 documented as of this encounter
--- OUTSIDE RECORDS SUMMARY | 2024-05-22 19:41 | XMS_ITS | Encounter Summary ---
Author Organization [facility] [place] [address] Care Team Providers Care Monkey Breeder Name Role Phone Nadine Mcduffie MD Primary Care Provider [phone] Encounter Details Date Type Department Care Team (Latest Contact Info) Description 01/10/2024 Travel Social History Tobacco Use Types Packs/Day Years [...] Patient Facing Action Plan No Chidi Tapia, [facility] Note: Aria hopes to keep relapses from recurring frequently documented as of this encounter Visit Diagnoses Not on filedocumented in this encounter Care Teams Monkey Breeder Relationship Specialty Start Date End Date Nadine Mcduffie MD [address] [place] [address] PCP - General Family Medicine 03/27/17 documented as of this encounter
--- OUTSIDE RECORDS SUMMARY | 2024-05-22 19:41 | XMS_ITS | Encounter Summary ---
Author Organization [facility] [place] [address] Care Team Providers Care Pararescue Manager Name Role Phone Nadine Mcduffie MD Primary Care Provider [phone] Reason for Visit * Diagnostic Test (Routine) - Closed Specialty Diagnoses / Procedures Referred By Tonia argueta Referred To Contact Radiology Diagnoses Multiple sclerosis Procedures MRI Brain wo Contrast Mike Perez III, MD [facility] [place] [address] [place] [address] Referral ID Status Reason Start Date Expiration Date V isits Requested Visits Authorized [id number] Closed Specialty Service Requested 10/27/2021 04/28/2023 1 0 Encounter Details Date Type Department Care Team (Latest Contact Info) Description 03/29/2022 9:01 AM EDT - 03/29/2022 11:59 PM EDT Hospital [place] [address] Mike Perez III, MD [facility] [place] [address] Discharge Disposition: Home Social History Tobacco Use Types Packs/Day Years [...] on file documented as of this encounter Medications at Time of Discharge Medication Sig Dispensed Refills Start Date End Date baclofen (Lioresal) 10 mg Tablet Take 0.5 tablets by mouth 2 times daily as needed. 60 tablet 11 06/01/2020 penicillin v potassium (VEETID) 500 mg Tablet every 6 hours. 07/21/2019 venlafaxine (EFFEXOR-XR) 150 mg Capsule, Sust. Release 24 hr Take 150 mg by mouth daily. levothyroxine (SYNTHROID) 50 mcg Tablet Take 50 mcg by mouth daily. glatiramer (Copaxone) 40 mg/mL Syringe INJECT 40MG SUBCUTANEOUSLY THREE TIMES WEEKLY AT LEAST 48 HOURS APART 36 mL 03/03/2022 05/31/2022 lamoTRIgine (LaMICtal) 25 mg TabletIndications:M yoclonus TAKE 3 TABLETS BY MOUTH TWICE DAILY 540 tablet 1 11/10/2021 03/30/2022 documented as of this encounter Plan of Treatment Not on file documented as of this encounter Goals Goal Patient Goal Type Associated Problems Recent Progress Patient-Stated? Author DH Home Medication Compliance and Understanding Patient Facing Action Plan No Chidi Tapia, [facility] Note: Aria hopes to keep relapses from recurring frequently documented as of this encounter Procedures Procedure Name Priority Date/Time Associated Diagnosis Comments MRI BRAIN WO CONTRAST Routine 03/29/2022 10:48 AM EDT Multiple sclerosis documented in this encounter Results * MRI Brain wo Contrast (03/29/2022 10:48 AM EDT) Anatomical Region Laterality Modality Head Magnetic Resonan ce Impressions 03/29/2022 11:26 AM EDT New lesion involving the genu of the left internal capsule. Thank you for letting us participate in the care of this patient. ??If you are a health care provider and have any questions regarding this report, please contact the number below. ??For patients who have questions please contact the health customer care agent that requested your imaging first. ? Electronically signed by: MAT Pennington [facility] ([phone]), at 03/29/2022 11:26 AM Narrative 03/29/2022 11:26 AM EDT EXAMINATION: MRI BRAIN WO CONTRAST CLINICAL HISTORY: Multiple sclerosis, monitor TECHNIQUE: Routine MRI of the brain was performed without contrast COMPARISON: MRI brain 01/23/2020, 04/17/2019 FINDINGS: No diffusion-weighted abnormality, mass effect or extra-axial collection. Ventricles are similar in caliber and contour. Similar asymmetric volume loss of the left precentral gyrus with juxtacortical signal abnormality extending along the corticospinal tract. Similar periventricular white matter and left splenium signal changes with slightly less conspicuous signal abnormality in the left viveros radiata. New focus of signal abnormality In the left internal capsule. Similar appearance of the right thalamus. Orbits appear normal. Trace anterior ethmoid air cell mucosal thickening. Mastoid air cells are clear. Regional marrow signal is unremarkable. Major intracranial vascular flow voids are preserved. Procedure Note Shanon Parsons MD - 03/29/2022 EXAMINATION: MRI BRAIN WO CONTRAST CLINICAL HISTORY: Multiple sclerosis, monitor TECHNIQUE: Routine MRI of the brain was performed without contrast COMPARISON: MRI brain 01/23/2020, 04/17/2019 FINDINGS: No diffusion-weighted abnormality, mass effect or extra-axial collection. Ventricles are similar in caliber and contour. Similarasymmetric volume loss of the left precentral gyrus with juxtacortical signalabnormality extending along the corticospinal tract. Similar periventricular whitematter and left splenium signal changes with slightly less conspicuous signal abnormality in the left viveros radiata. New focus of signal abnormality In the left internal capsule. Similar appearance of the right thalamus.Orbits appear normal. Trace anterior ethmoid air cell mucosal thickening. Mastoidair cells are clear. Regional marrow signal is unremarkable. Majorintracranial vascular flow voids are preserved. IMPRESSION New lesion involving the genu of the left internal capsule. Thank you for letting us participate in the care of this patient. If youare a health care provider and have any questions regarding this report,please contact the number below. For patients who have questions please contactthe health customer care agent that requested your imaging first. Mike Perez III, MD IMG MRI ORDERABLE S documented in this encounter Visit Diagnoses Not on filedocumented in this encounter Care Teams Pararescue Manager Relationship Specialty Start Date End Date Nadine Mcduffie MD [address] [place] [id number] PCP - General Family Medicine 03/27/17 documented as of this encounter
--- OUTSIDE RECORDS SUMMARY | 2024-05-22 19:41 | XMS_ITS | Encounter Summary ---
Author Organization [facility] [place] [address] Care Team Providers Care Instrument Man Name Role Phone Nadine Mcduffie MD Primary Care Provider [phone] Reason for Visit * Reason Comments Medication Refill Encounter Details Date Type Department Care Team ([facility] [address] Contact Info) Description 06/29/2022 [place] [address] Mike Perez III, MD [facility] [place] [address] Multiple sclerosis Social History Tobacco Use Types Packs/Day Years [...] encounter Miscellaneous Notes * Telephone Encounter - Eun Willett RN - 06/30/2022 1:31 PM EST surescript request for renewal of glatiramer Last rx 06/01/22 12 ml and no refill FUV sched for 08/25/22 documented in this encounter Plan of Treatment Not on file documented as of this encounter Goals Goal Patient Goal Type Associated Problems Recent Progress Patient-Stated? Author DH Home Medication Compliance and Understanding Patient Facing Action Plan No Chidi Tapia, [facility] Note: Aria hopes to keep relapses from recurring frequently documented as of this encounter Visit Diagnoses Diagnosis Multiple sclerosis documented in this encounter Care Teams Instrument Man Relationship Specialty Start Date End Date Nadine Mcduffie MD [address] [place] [address] PCP - General Family Medicine 03/27/17 documented as of this encounter
--- OUTSIDE RECORDS SUMMARY | 2024-05-22 19:41 | XMS_ITS | Encounter Summary ---
[place] [address] Care Team Providers Care Neuroscientist Name Role Phone Nadine Mcduffie MD Primary Care Provider [phone] Reason for Visit * Reason Comments Specialty Pharmacy Review glatiramer Encounter Details Date Type Department Care Team ([facility] Contact Info) Description 03/04/2022 Specialty [place] [address] Sammy Yin RPH Social History Tobacco Use Types Packs/Day Years [...] as of this encounter Progress Notes * Sammy Yin RPH - 03/04/2022 11:59 PM EDT The - Specialty Pharmacy has completed a benefits investigation for Aria Waller to review their eligibility to fill at [facility]. Per patient's medication list they are prescribed glatiramer and the medication is not able to be filled at the [facility]. Insurance requires fill through [facility]. documented in this encounter Plan of Treatment Not on file documented as of this encounter Goals Goal Patient Goal Type Associated Problems Recent Progress Patient-Stated? Author DH Home Medication Compliance and Understanding Patient Facing Action Plan No Chidi Tapia, [facility] Note: Aria hopes to keep relapses from recurring frequently documented as of this encounter Visit Diagnoses Not on filedocumented in this encounter Care Teams Neuroscientist Relationship Specialty Start Date End Date Nadine Mcduffie MD [address] [place] [address] PCP - General Family Medicine 03/27/17 documented as of this encounter
--- OUTSIDE RECORDS SUMMARY | 2024-05-22 19:41 | XMS_ITS | Encounter Summary ---
[place] [address] Care Team Providers Care Vp Human Resources Name Role Phone Nadine Mcduffie MD Primary Care Provider [phone] Reason for Referral * Diagnostic Test (Routine) - Closed Specialty Diagnoses / Procedures Referred By Contac t Referred To Contact Radiology Diagnoses Multiple sclerosis Procedures MRI Cervical Spine wo Contrast (Generic) Mike Perez III, MD [facility] [address] [place] [address] Referral ID Status Reason Start Date Expiration Date V isits Requested Visits Authorized [id number] Closed Specialty Service Requested 07/28/2023 01/25/2025 1 1 * Diagnostic Test (Routine) - Closed Specialty Diagnoses / Procedures Referred By Contac t Referred To Contact Radiology Diagnoses Multiple sclerosis Procedures MRI Brain wo Contrast Mike Perez III, MD [facility] [place] [address] [place] [address] Referral ID Status Reason Start Date Expiration Date V isits Requested Visits Authorized [id number] Closed Specialty Service Requested 07/28/2023 01/25/2025 1 1 Reason for Visit * Diagnostic Test (Routine) - Closed Specialty Diagnoses / Procedures Referred By Tonia argueta Referred To Contact Radiology Diagnoses Multiple sclerosis Procedures MRI Cervical Spine wo Contrast (Generic) Mike Perez III, MD [facility] [place] [address] [facility] [place] [address] Referral ID Status Reason Start Date Expiration Date V isits Requested Visits Authorized [id number] Closed Specialty Service Requested 07/28/2023 01/25/2025 1 1 Encounter Details Date Type Department Care Team (Latest Contact Info) Description 01/06/2024 9:46 AM EDT - 01/06/2024 11:59 PM EDT [place] [address] Mike Perez III, MD [facility] [address] Multiple sclerosis Discharge Disposition: Home Social History Tobacco Use [...] Tablet Take 50 mcg by mouth daily. lamoTRIgine (LaMICtal) 100 mg tablet Take 1 tablet by mouth 2 times daily. 180 tablet 3 12/11/2023 01/10/2024 glatiramer (Copaxone) 40 mg/mL SyringeIndications: Multiple sclerosis INJECT 1 ML SUBCUTANEOUSLY 3 TIMES WEEKLY 12 mL 2 06/30/2022 05/09/2024 ofatumumab (Kesimpta Pen) 20 mg/0.4 mL Pen Injector Inject 0.4 mLs subcutaneously every 28 days. 0.4 mL 5 03/30/2022 05/07/2024 documented as of this encounter Plan of Treatment Not on file documented as of this encounter Goals Goal Patient Goal Type Associated Problems Recent Progress Patient-Stated? Author DH Home Medication Compliance and Understanding Patient Facing Action Plan No Chidi Tapia, [facility] Note: Aria hopes to keep relapses from recurring frequently documented as of this encounter Procedures Procedure Name Priority Date/Time Associated Diagnosis Comments MRI CERVICAL SPINE WO CONTRAST Routine 01/06/2024 11:30 AM EDT Multiple sclerosis MRI BRAIN WO CONTRAST Routine 01/06/2024 11:30 AM EDT Multiple sclerosis documented in this encounter Results * MRI Cervical Spine wo Contrast (Generic) (01/06/2024 11:30 AM EDT) [employer] WORKSTATION ID [id number] RAD Anatomical Region Laterality Modality C-spine Magnetic Resonan ce Impressions 01/08/2024 1:54 PM EDT Similar multiple sclerosis plaque burden. Thank you for letting us participate in the care of this patient. ??If you are a health care provider and have any questions regarding this report, please contact the number below. ??For patients who have questions please contact the health healthcare economics manager that requested your imaging first. ? Electronically signed by: Cathi Smalls MD, [facility] ([phone]), at 01/08/2024 1:54 PM Narrative 01/08/2024 1:54 PM EDT EXAMINATION: MRI CERVICAL SPINE WO CONTRAST (GENERIC) CLINICAL HISTORY: Multiple sclerosis, monitor G35, Multiple sclerosis TECHNIQUE: MRI of the cervical spine performed without intravenous contrast administration. COMPARISON: MRI cervical spine 09/20/2017 FINDINGS: The cervical spinal cord shows T2 bright lesions ventrally centered on the right at C3-4 and dorsally on the left at C4. There is also subtle T2 bright signal in the left lateral dorsal aspect of the spinal cord at the C5 level. Considering the differences in technique, these are more evident on the current study likely due to the differences in technique. The vertebral bodies are maintained in height. No subluxation. Straightening of the usual lordosis which may be positional in nature. Mild degenerative disc changes at C5-C6 7 with mild loss of T2 bright disc signal. Small stable probable atypical hemangioma in the T2 vertebra. Procedure Note Cathi Smalls MD - 01/08/2024 EXAMINATION: MRI CERVICAL SPINE WO CONTRAST (GENERIC) CLINICAL HISTORY: Multiple sclerosis, monitor G35, Multiple sclerosis TECHNIQUE: MRI of the cervical spine performed without intravenous contrastadministration. COMPARISON: MRI cervical spine 09/20/2017 FINDINGS: The cervical spinal cord shows T2 bright lesions ventrally centered on theright at C3-4 and dorsally on the left at C4. There is also subtle T2 brightsignal in the left lateral dorsal aspect of the spinal cord at the C5 level.Considering the differences in technique, these are more evident on the current studylikely due to the differences in technique. The vertebral bodies are maintained in height. No subluxation.Straightening of the usual lordosis which may be positional in nature. Mild degenerativedisc changes at C5-C6 7 with mild loss of T2 bright disc signal. Small stable probable atypical hemangioma in the T2 vertebra. IMPRESSION Similar multiple sclerosis plaque burden. Thank you for letting us participate in the care of this patient. If youare a health care provider and have any questions regarding this report,please contact the number below. For patients who have questions please contactthe health healthcare economics manager that requested your imaging first. Electronically signed by: Cathi Smalls MD, [facility]([phone]), at 01/08/2024 1:54 PM Mike Perez III, MD [facility] MRI ORDERABLE S * MRI Brain wo Contrast (01/06/2024 11:30 AM EDT) WORKSTATION ID [id number] RAD Anatomical Region Laterality Modality Head Magnetic Resonan ce Impressions 01/08/2024 1:44 PM EDT 1 new small left temporal lobe white matter lesion, otherwise stable multiple sclerosis plaque burden. No evidence of active demyelination. Thank you for letting us participate in the care of this patient. ??If you are a health care provider and have any questions regarding this report, please contact the number below. ??For patients who have questions please contact the health healthcare economics manager that requested your imaging first. ? Electronically signed by: Cathi Smalls MD, [facility] ([phone]), at 01/08/2024 1:44 PM Narrative 01/08/2024 1:44 PM EDT EXAMINATION: MRI BRAIN WO CONTRAST CLINICAL HISTORY: Multiple sclerosis, monitor G35, Multiple sclerosis TECHNIQUE: MRI of the brain performed without intravenous contrast administration. COMPARISON: MRI brain 03/29/2022 FINDINGS: There is a new small T2 bright lesion in the left temporal lobe white matter (axial series 3 image 82). The additional small number of scattered T2 bright lesions are stable. This includes stable volume loss in the superior aspect of the left precentral and postcentral gyri. No abnormal restricted diffusion. No evidence of intracranial hemorrhage and no mass, mass effect, midline shift, hydrocephalus, or acute infarction. No marrow signal abnormality. Procedure Note Cathi Smalls MD - 01/08/2024 EXAMINATION: MRI BRAIN WO CONTRAST CLINICAL HISTORY: Multiple sclerosis, monitor G35, Multiple sclerosis TECHNIQUE: MRI of the brain performed without intravenous contrast administration. COMPARISON: MRI brain 03/29/2022 FINDINGS: There is a new small T2 bright lesion in the left temporal lobe whitematter (axial series 3 image 82). The additional small number of scattered [id number] lesions are stable. This includes stable volume loss in the superioraspect of the left precentral and postcentral gyri. No abnormal restricteddiffusion. No evidence of intracranial hemorrhage and no mass, mass effect, midlineshift, hydrocephalus, or acute infarction. No marrow signal abnormality. IMPRESSION 1 new small left temporal lobe white matter lesion, otherwise stablemultiple sclerosis plaque burden. No evidence of active demyelination. Thank you for letting us participate in the care of this patient. If youare a health care provider and have any questions regarding this report,please contact the number below. For patients who have questions please contactthe health healthcare economics manager that requested your imaging first. Electronically signed by: Cathi Smalls MD, [facility]([phone]), at 01/08/2024 1:44 PM Mike Perez III, MD [facility] MRI ORDERABLE S documented in this encounter Visit Diagnoses Diagnosis Multiple sclerosis documented in this encounter Care Teams Vp Human Resources Relationship Specialty Start Date End Date Nadine Mcduffie MD [address] [place] [address] PCP - General Family Medicine 03/27/17 documented as of this encounter
--- OUTSIDE RECORDS SUMMARY | 2024-05-22 19:41 | XMS_ITS | Encounter Summary ---
Author Organization [facility] Address [facility] [place] [address] Care Team Providers Care Hat Parts Cutter Machine Name Role Phone Nadine Mcduffie MD Primary Care Provider [phone] Encounter Details Date Type Department Care Team ([facility] st Contact Info) Description 06/09/2022 Telephone [place] [address] Mike Perez III, MD [facility] [place] [place] [address] Social History Tobacco Use Types Packs/Day Years [...] encounter Miscellaneous Notes * Telephone Encounter - Greta Neely RN - 06/09/2022 3:02 PM EST I phoned [facility] and spoke with pharmacist regarding the copaxone rx. Pharmacist states theyhave order for Kesimpta as well. I explained that pt is not able to start Kesimpta yet and needs tocontinue on copaxone until she is able to start Kesimpta. Per 05/31/[address] Perez: Treatment Plan: 1. Continue on glatiramer acetate until she is able to start Kesimpta 2. Will clarify consent a prescription with her specialty pharmacy 3. Pending Prevnar 20 and influenza vaccinations; may not be candidate for COVID booster vaccination given recent infection. COVID booster vaccination is not required prior to starting Kesimpta. She is planning on receiving vaccinations with her PCP, Dr. Mcduffie. 4. Continue on lamotrigine 100 mg 2 times daily for tremor Pharmacist will place Kesimpta on hold and will resume the glatiramer rx. He states they will be able to ship medication out tonight. I phoned pt and reviewed above and instructed her to call [facility] after we get off the phone to arrange for shipment and delivery. Plan: as above and pt agrees with plan and verbalizes understanding and very thankful for follow up. No further action required at this time. ?? * Telephone Encounter - Greta Neely RN - 06/09/2022 2:44 PM EST Copied from CRM #[id number]. Topic: Specialty Dept CRMs - Medication Issues >> Jun 09, 2022 2:09 PM Claudine Boyd wrote: Medication Issues Specialist Dr. Perez Relationship (if other than patient-full name): patient Reason for call: Medication Issue (if symptom based used Triage Subtopic) Message/information for the nurse: patient calling in stating pharmacy cancelled the refill request Name of Medication: glatiramer (Copaxone) 40 mg/mL Syringe Issue with the medication: Patient stating she only has one more dose, the pharmacy cancelled this and she is unsure why. This agent did make the FUV for patient on 08/25/22 tele health appointment. Please reach out to patient to let her know if this can be done today patient takes this medication every other day. She does use the mail order pharmacy and they normally over night it to her. documented in this encounter Plan of Treatment Not on file documented as of this encounter Goals Goal Patient Goal Type Associated Problems Recent Progress Patient-Stated? Author DH Home Medication Compliance and Understanding Patient Facing Action Plan No Chidi Tapia, [facility] Note: Aria hopes to keep relapses from recurring frequently documented as of this encounter Visit Diagnoses Not on filedocumented in this encounter Care Teams Hat Parts Cutter Machine Relationship Specialty Start Date End Date Nadine Mcduffie MD [address] [place] [address] PCP - General Family Medicine 03/27/17 documented as of this encounter
--- OUTSIDE RECORDS SUMMARY | 2024-05-22 19:41 | XMS_ITS | Encounter Summary ---
Author Organization [facility] [place] [address] Care Team Providers Care Position Classifier Name Role Phone Nadine Mcduffie MD Primary Care Provider [phone] Reason for Visit * Reason Onset Date Comments Medication Refill 01/04/2023 Encounter Details Date Type Department Care Team ([facility] st Contact Info) Description 01/04/2023 [place] [address] Mike Perez III, MD [facility] [place] [address] Medication Refill Social History Tobacco Use Types Packs/Day Years [...] Telephone Encounter - Greta Neely RN - 01/04/2023 10:00 AM EDT New rx generated for provider review and signature and marked urgent. * Telephone Encounter - Mariano Moreland - 01/04/2023 9:23 AM EDT Call Center / [employer] Message Prescription Refill Request Clinical [employer] message Provider patient sees in Clinic: Mike Perez III, MD Caller and relationship (if other than patient-full name): Aria Waller ,patient Call back Number: [phone] Ok to leave a message: yes Any issues needing to be addressed prior to medication refill? (ex: dose increase, not at pharmacy): n/a Name of Med: lamoTRIgine (LaMICtal) Strength of Pills: 100 mg Tablet Dosing Directions: Take 1 tablet by mouth 2 times daily for 30 days. How Patient is Currently Taking Medication: 1 tablet 2x daily 30 or 90 Day Supply: 30 Pharmacy: [id number] Last Appointment: 08/25/2022 Next Appointment: 02/16/2023 Is Patient out of Medication?: yes, has been out since Monday, hoping this can be expedited today as she is beginning to feel it documented in this encounter Plan of Treatment Not on file documented as of this encounter Goals Goal Patient Goal Type Associated Problems Recent Progress Patient-Stated? Author DH Home Medication Compliance and Understanding Patient Facing Action Plan No Chidi Tapia, [facility] Note: Aria hopes to keep relapses from recurring frequently documented as of this encounter Visit Diagnoses Not on filedocumented in this encounter Care Teams Position Classifier Relationship Specialty Start Date End Date Nadine Mcduffie MD [address] [place] [address] PCP - General Family Medicine 03/27/17 documented as of this encounter
--- OUTSIDE RECORDS SUMMARY | 2024-05-22 19:41 | XMS_ITS | Encounter Summary ---
Author Organization [facility] Address [facility] [place] [address] Care Team Providers Care Lining Stitcher Name Role Phone Nadine Mcduffie MD Primary Care Provider Reason for Visit * Reason Onset Date Comments Appointment 03/17/2023 Encounter Details Date Type Department Care Team ([facility] Contact Info) Description 03/17/2023 [place] [address] Mike Perez III, MD [facility] [place] [address] Appointment Social History Tobacco Use Types Packs/Day [...] * Telephone Encounter - Sissy Faustin - 05/08/2023 4:44 PM EST Left a message to schedule appointment. Letter sent to schedule. * Telephone Encounter - Noemy Drake - 03/17/2023 12:05 PM EDT Scheduling Instructions Provider: Dr Perez Visit Type (paste FARIHA Instructions or manually enter): Return in about 2 months (around 04/18/2023)for In Person If EMG Visit needed list diagnosis for the EMG to be used in Decision Tree: Appt Note: MS Additional Info Needed: documented in this encounter Plan of Treatment Not on file documented as of this encounter Goals Goal Patient Goal Type Associated Problems Recent Progress Patient-Stated? Author DH Home Medication Compliance and Understanding Patient Facing Action Plan No Cihdi Tapia, [facility] Note: Aria hopes to keep relapses from recurring frequently documented as of this encounter Visit Diagnoses Not on filedocumented in this encounter Care Teams Lining Stitcher Relationship Specialty Start Date End Date Nadine Mcduffie MD [address] [place] [id number] PCP - General Family Medicine 03/27/17 documented as of this encounter
--- OUTSIDE RECORDS SUMMARY | 2024-05-22 19:41 | XMS_ITS | Encounter Summary ---
[place] [address] Care Team Providers Care Inside Sales Consultant Name Role Phone Nadine Mcduffie MD Primary Care Provider [phone] Reason for Visit * Reason Comments Prior Authorization Glatiramer Acetate 4 0MG/ML SOSY Encounter Details Date Type Department Care Team (Late st Contact Info) Description 03/04/2022 Specialty [place] [address] Jasmin Knight, [facility] Social History Tobacco Use Types Packs/Day Years [...] as of this encounter Progress Notes * Jasmin Knight - 03/04/2022 10:34 AM EDT [facility], Medication Prior Authorization Submission Patient: Aria Waller Patient : 1980 Patient Address: [address] [place] [address] [address] [email or web address] [address] (home) Medication Name: GLATIRAMER 40 MG/ML SUBCUTANEOUS SYRINGE Medication ID: [id number] Subscriber Insurance: [employer] [id number] Subscriber Insurance Comment: Fax: Physician: KWAME HIDALGO III Physician Comment: Sent Via: [facility] Bull: [id number] Ref/Case/PA#: [id number] Medication Strength Frequency Requested: Glatiramer 40 mg/mL Syringe, inject 40MG subcutaneously three times weekly, at least 48 hours apart Qty/Day Supply: 06/29 New Start: Insurance Change Diagnosis & ICD-10 Code: Multiple Sclerosis G35 Patient Notified: No Submission Notes: [id number]#[id number] PA INITIATED VIA [facility], BULL# [id number], PA# [id number] Jasmin Knight 03/04/22 10:38 AM * Jasmin Knight - 03/04/2022 10:34 AM EDT [facility], Prior Authorization Approval Medication Name: GLATIRAMER 40 MG/ML SUBCUTANEOUS SYRINGE Medication ID: [id number] Approval Dates: 03/04/2022 to 03/04/2023 Insurance requirements/notes: None Other Notes: None Case/Reference #: [id number] Approval notification Received via: [facility] Copay: Copay assistance: Copay Notes: Insurance mandated Pharmacy: [facility] Fillable at [facility]: No Pharmacy staff will be reaching out to the patient to inform them of their medication's approval [facility]. If applicable, a pharmacist will speak with the patient to offer our specialty pharmacy services and to arrange delivery of their medication. Jasmin Knight 03/04/22 11:08 AM documented in this encounter Plan of Treatment Not on file documented as of this encounter Goals Goal Patient Goal Type Associated Problems Recent Progress Patient-Stated? Author DH Home Medication Compliance and Understanding Patient Facing Action Plan No Chidi Tapia, [facility] Note: Aria hopes to keep relapses from recurring frequently documented as of this encounter Visit Diagnoses Not on filedocumented in this encounter Care Teams Inside Sales Consultant Relationship Specialty Start Date End Date Nadine Mcduffie MD [address] [place] [address] PCP - General Family Medicine 03/27/17 documented as of this encounter
--- OUTSIDE RECORDS SUMMARY | 2024-05-22 19:41 | XMS_ITS | Encounter Summary ---
Author Organization [facility] [place] [address] Care Team Providers Care First Assistant Manager Name Role Phone Nadine Mcduffie MD Primary Care Provider [phone] Reason for Visit * Reason Onset Date Comments Appointment 12/18/2023 MRI Encounter Details Date Type Department Care Team ([facility] Contact Info) Description 12/18/2023 [place] [id number] Samson Caro, RN Appointment (MRI) Social History Tobacco Use Types Packs/Day Years [...] encounter Miscellaneous Notes * Telephone Encounter - Samson Caro, RN - 12/18/2023 4:13 PM EDT Call to schedule MRI Brain wo and C-Spine wo ordered 07/28/2023. Pt transferred to schedule imaging. documented in this encounter Plan of Treatment Not on file documented as of this encounter Goals Goal Patient Goal Type Associated Problems Recent Progress Patient-Stated? Author Home Medication Compliance and Understanding Patient Facing Action Plan No Chidi Tapia, [facility] Note: Aria hopes to keep relapses from recurring frequently documented as of this encounter Visit Diagnoses Not on filedocumented in this encounter Care Teams First Assistant Manager Relationship Specialty Start Date End Date Nadine Mcduffie MD [address] [place] [address] PCP - General Family Medicine 03/27/17 documented as of this encounter
--- OUTSIDE RECORDS SUMMARY | 2024-05-22 19:41 | XMS_ITS | Encounter Summary ---
[place] [address] Care Team Providers Care Lithoduplicator Operator Name Role Phone Nadine Mcduffie MD Primary Care Provider [phone] Reason for Visit * Reason Comments Specialty Pharmacy Review Encounter Details Date Type Department Care Team ([facility] Contact Info) Description 05/31/2022 Specialty [place] [address] Sammy Yin RPH Social History Tobacco Use [...] Progress Notes * Sammy Yin RPH - 05/31/2022 11:59 PM EST The [facility] has completed a benefits investigation for Aria Waller to review their eligibility to fill at [facility]. Per patient's medication list they are prescribed Kesimpta and the medication is not able to be filled at the [facility]. Kesimpta must be filled with [facility] documented in this encounter Plan of Treatment Not on file documented as of this encounter Goals Goal Patient Goal Type Associated Problems Recent Progress Patient-Stated? Author DH Home Medication Compliance and Understanding Patient Facing Action Plan No Chidi Tapia, [facility] Note: Aria hopes to keep relapses from recurring frequently documented as of this encounter Visit Diagnoses Not on filedocumented in this encounter Care Teams Lithoduplicator Operator Relationship Specialty Start Date End Date Nadine Mcduffie MD [address] [place] [address] PCP - General Family Medicine 03/27/17 documented as of this encounter
--- OUTSIDE RECORDS SUMMARY | 2024-05-22 19:41 | XMS_ITS | Encounter Summary ---
Author Organization [place] [address] Care Team Providers Care Health Equipment Servicer Name Role Phone Nadine Mcduffie MD Primary Care Provider [phone] Reason for Visit * Reason Comments Medication Refill Encounter Details Date Type Department Care Team ([facility] Contact Info) Description 03/02/2022 Ref[place] [address] Mike Perez III, MD [facility] [place] [address] Social History Tobacco Use Types Packs/Day Years [...] Telephone Encounter - Eun Willett RN - 03/03/2022 12:27 PM EDT surescript request for renewal of glatiamer Last rx 10/29/21 #36 and no refill Pt cancelled last appt FUV needed - chart notes special education secretary is working on arranging appt documented in this encounter Plan of Treatment Not on file documented as of this encounter Goals Goal Patient Goal Type Associated Problems Recent Progress Patient-Stated? Author DH Home Medication Compliance and Understanding Patient Facing Action Plan No Chidi Tapia, [facility] Note: Aria hopes to keep relapses from recurring frequently documented as of this encounter Visit Diagnoses Not on filedocumented in this encounter Care Teams Health Equipment Servicer Relationship Specialty Start Date End Date Nadine Mcduffie MD [address] [place] [address] PCP - General Family Medicine 03/27/17 documented as of this encounter
--- OUTSIDE RECORDS SUMMARY | 2024-05-22 19:41 | XMS_ITS | Encounter Summary ---
[place] [address] Care Team Providers Care Patient Support Partner Name Role Phone Nadine Mcduffie MD Primary Care Provider [phone] Reason for Visit * Reason Comments Prior Authorization Kesimpta 20 mg SOAJ Encounter Details Date Type Department Care Team (Late st Contact Info) Description 05/20/2024 Specialty [place] [address] Samantha Lackey CPHT Social History Tobacco Use Types Packs/Day Years [...] as of this encounter Progress Notes * Samantha Lackey CPHT - 05/20/2024 9:44 AM EST [facility], Medication Prior Authorization Submission Patient: Aria Waller Patient : 1980 Patient Address: [address] [place] [phone] (home) Medication Name: KESIMPTA PEN 20 MG/0.4 ML SUBCUTANEOUS PEN INJECTOR Medication ID: [id number] Subscriber Insurance: Unable to find Subscriber Insurance Comment: Inderjit FELDMAN Fax: Physician: KWAME HIDALGO III Physician Comment: Sent Via: Fax Bull: Ref/Case/PA#: Medication Strength Frequency Requested: Kesimpta 20 mg/ml SOAJ Qty/Day Supply: 08/01 New Start: New to Therapy Diagnosis & ICD-10 Code: G35 - Multiple Sclerosis Patient Notified: No Submission Notes: - New medication needs TALISHA Lackey CPHT 05/20/24 10:21 AM documented in this encounter Plan of Treatment Not on file documented as of this encounter Goals Goal Patient Goal Type Associated Problems Recent Progress Patient-Stated? Author DH Home Medication Compliance and Understanding Patient Facing Action Plan No Chidi Tapia, [facility] Note: Aria hopes to keep relapses from recurring frequently documented as of this encounter Visit Diagnoses Not on filedocumented in this encounter Care Teams Patient Support Partner Relationship Specialty Start Date End Date Nadine Mcduffie MD [address] [place] [address] PCP - General Family Medicine 03/27/17 documented as of this encounter
--- OUTSIDE RECORDS SUMMARY | 2024-05-22 19:41 | XMS_ITS | Encounter Summary ---
Author Organization [facility] [place] [address] Care Team Providers Care Microstrategy Reports Developer Name Role Phone Nadine Mcduffie MD Primary Care Provider [phone] Reason for Visit * Reason Onset Date Comments Medication Refill 05/07/2024 Encounter Details Date Type Department Care Team ([facility] Contact Info) Description 05/07/2024 [place]ill [place] [address] Mike Perez III, MD [facility] [place] [address] Multiple sclerosis Social History Tobacco Use Types [...] Facing Action Plan No Chidi Tapia, [facility] Note: Aria hopes to keep relapses from recurring frequently documented as of this encounter Visit Diagnoses Diagnosis Multiple sclerosis documented in this encounter Care Teams Microstrategy Reports Developer Relationship Specialty Start Date End Date Nadine Mcduffie MD [address] [place] [address] PCP - General Family Medicine 03/27/17 documented as of this encounter
--- OUTSIDE RECORDS SUMMARY | 2024-05-22 19:41 | XMS_ITS | Encounter Summary ---
Author Organization [facility] Address [facility] [place] [address] Care Team Providers Care Tongue And Groove Machine Setter Name Role Phone Nadine Mcduffie MD Primary Care Provider [phone] Encounter Details Date Type Department Care Team (Late Contact Info) Description 03/30/2022 [place] [address] Mike Perez III, MD [facility] [place] [address] Social History Tobacco Use Types Packs/Day Years [...] Type Associated Problems Recent Progress Patient-Stated? Author [facility] Medication Compliance and Understanding Patient Facing Action Plan No Chidi Tapia, [facility] Note: Aria hopes to keep relapses from recurring frequently documented as of this encounter Visit Diagnoses Not on filedocumented in this encounter Care Teams Tongue And Groove Machine Setter Relationship Specialty Start Date End Date Nadine Mcduffie MD [address] [place] [address] PCP - General Family Medicine 03/27/17 documented as of this encounter
--- OUTSIDE RECORDS SUMMARY | 2024-05-22 19:41 | XMS_ITS | Encounter Summary ---
Author [facility] [place] [address] Care Team Providers Care Entry Level Accounting Clerk Name Role Phone Nadine Mcduffie MD Primary Care Provider [phone] Encounter Details Date Type Department Care Team ([facility] Contact Info) Description 08/25/2022 11:30 AM EST TH Visit (TeleHealth) [place] [address] Mike Perez III, MD [facility] [place] [address] Multiple sclerosis Social History Tobacco Use Types [...] as of this encounter Progress Notes * Mike Perez III, MD - 08/25/2022 11:30 AM EST [facility] Telephone Encounter Note Dear Nadine Mcduffie MD, I had a telephone encounter with Aria Waller today in follow-up for MS. she understood and consented for this telephone encounter with knowledge that this visit may be billed, similar to a clinic appointment. Visual examination was not possible due to technological difficulties that Aria was experiencing. Telephone Encounter TIme: 11:30 - 11:40 (10 minutes) DISEASE SUMMARY: Principal neurologic diagnosis: MS?? Diagnosis of MS: 2018 - onset possibly in 2014 CSF: 8 oligoclonal bands, elevated IgG index and IgG synthesis rate Disease course at onset: relapsing Current disease course: relapsing Relapses: 2015 - R thigh numbness (possible relapse) 10/2016 - R arm myoclonic jerks 04/2019 - R leg weakness 12/2021 - R leg weakness EDSS??(03/2022):??2.5 MS Severity Score (EDSS and Disease Duration): 6.04 myD-H Multiple Sclerosis 09/07/2017 09/21/2017 01/04/2018 04/09/2018 04/17/2019 07/22/2019 Audit Sub Scores 1 (Low Risk) 2 (Low Risk) 1 (Low Risk) 1 (Low Risk) 3 (Low Risk) 2 (Low Risk) Pain Typical 6 (None-0, Worst-10) 5 (None-0, Worst-10) 7 (None-0, Worst-10) 6 (None-0, Worst-10) 6 (None-0, Worst-10) 4 (None-0, Worst-10) Pain Now 3 (None-0, Worst-10) 4 (None-0, Worst-10) 6 (None-0, Worst-10) 5 (None- 0, Worst-10) 5 (None-0, Worst-10) 3 (None-0, Worst-10) Pain at Rest 4 (None-0, Worst-10) 3 (None-0, Worst-10) 6 (None-0, Worst-10) 5 (None-0, Worst-10) 5 (None-0, Worst-10) 3 (None-0, Worst-10) Pain with Activity 4 (None-0, Worst-10) 4 (None-0, Worst-10) 6 (None-0, Worst- 10) 5 (None-0, Worst-10) 5 (None-0, Worst-10) 5 (None-0, Worst-10) MSIS-29 95 84 103 100 98 85 Treatment History Previous disease therapies: none Current disease therapies: Copaxone (start 2019); pending starting Kesimpta Imaging History Most recent MRI brain: 03/29/2022 (new L IC lesion; prior 01/22/2022) Most recent MRI cervical spine: 09/20/2017 Most recent MRI thoracic spine: 09/20/2017 Telephone Discussion: Aria last had a telemedicine encounter with me on 05/31/2022. At that time she did not report any new or worsening neurological symptoms concerning for MS relapse or disease progression. We had discussed prior plan to switch to Kesimpta. Prior laboratory evaluation for hepatitis B, hepatitis C, and tuberculosis were negative. She had not yet received Prevnar and influenza vaccination. Today, Aria does not report any new or worsening neurological symptoms. She has not yet started Kesimpta as she is in the process of switching insurance. She continues on Copaxone. She continues to have issues with right upper extremity tremor for which she is on lamotrigine 100 mg 2 times daily. She inquires into possibility of Botox injections. Current Medications: reviewed and updated in EMR REVIEW OF IMAGING STUDIES: No new imaging REVIEW OF LABORATORY STUDIES: No new labs Assessment: ICD-10-CM 1. Multiple sclerosis G35 Aria Waller is a 41 y.o. woman with relapsing multiple sclerosis with activity on Copaxone. Lastrelapse was in December 2021 with right leg weakness and MRI scan of the brain from March 2022 showing a new left internal capsule lesion. We have been in discussion about switching to Kesimpta sinceSept2021 but delayed by vaccinations and now by insurance changes. In the setting of her switching insurance she will need a new Kesimpta enrollment form. We will need her new insurance information. In regards to right upper extremity tremor for which she is on lamotrigine 100 mg 2 times daily. She inquires about possibility of Botox injections. I am not certain that Botox injections would be effective, but I can review with Dr. Brianna Collado ([facility] movement disorders), whom has seen Aria in the past. Follow-Up: 2 to 3 months via telemedicine or in clinic Thank you for allowing us to participate in rAia's healthcare. If you have questions or concerns please do not hesitate to call our clinic at [phone]. Mike Perez III, MD Hybrid Powertrain Development Engineer [facility] Department of Neurology [facility] [address] P F 1:41 PM 09/02/2022 documented in this encounter Plan of Treatment Not on file documented as of this encounter Goals Goal Patient Goal Type Associated Problems Recent Progress Patient-Stated? Author DH Home Medication Compliance and Understanding Patient Facing Action Plan No Chidi Tapia, [facility] Note: Aria hopes to keep relapses from recurring frequently documented as of this encounter Visit Diagnoses Diagnosis Multiple sclerosis documented in this encounter Care Teams Entry Level Accounting Clerk Relationship Specialty Start Date End Date Nadine Mcduffie MD [address] [place] [address] PCP - General Family Medicine 03/27/17 documented as of this encounter
--- OUTSIDE RECORDS SUMMARY | 2024-05-22 19:41 | XMS_ITS | Encounter Summary ---
[place] [address] Care Team Providers Care Police Chief Name Role Phone Nadine Mcduffie MD Primary Care Provider [phone] Reason for Visit * Reason Comments Specialty Pharmacy Review Encounter Details Date Type Department Care Team ([facility] Contact Info) Description 08/25/2022 Specialty [place] [address] Sammy Yin RPH Social History Tobacco Use [...] Progress Notes * Sammy Yin RPH - 08/25/2022 11:59 PM EST The [facility] has completed a benefits investigation for Aria Waller to review their eligibility to fill at [facility]. Per patient's medication list they are prescribed Kesimpta and the medication is not able to be filled at the [facility]. documented in this encounter Plan of Treatment Not on file documented as of this encounter Goals Goal Patient Goal Type Associated Problems Recent Progress Patient-Stated? Author DH Home Medication Compliance and Understanding Patient Facing Action Plan No Chidi Tapia, [facility] Note: Aria hopes to keep relapses from recurring frequently documented as of this encounter Visit Diagnoses Not on filedocumented in this encounter Care Teams Police Chief Relationship Specialty Start Date End Date Nadine Mcduffie MD [address] [place] [address] PCP - General Family Medicine 03/27/17 documented as of this encounter
--- OUTSIDE RECORDS SUMMARY | 2024-05-22 19:41 | XMS_ITS | Encounter Summary ---
Author Organization [facility] [place] [address] Care Team Providers Care Senior Mechanical Project Engineer Name Role Phone Nadine Mcduffie MD Primary Care Provider [phone] Encounter Details Date Type Department Care Team (Latest Contact Info) Description 01/06/2024 Travel Social History Tobacco Use Types Packs/Day [...] Patient Facing Action Plan No Chidi Tapia, [facility] Note: Aria hopes to keep relapses from recurring frequently documented as of this encounter Visit Diagnoses Not on filedocumented in this encounter Care Teams Senior Mechanical Project Engineer Relationship Specialty Start Date End Date Nadine Mcduffie MD [address] [place] [address] PCP - General Family Medicine 03/27/17 documented as of this encounter
--- OUTSIDE RECORDS SUMMARY | 2024-05-22 19:41 | XMS_ITS | Encounter Summary ---
Author [facility] [place] [address] Care Team Providers Care Dictating Machine Transcriber Name Role Phone Nadine Mcduffie MD Primary Care Provider [phone] Reason for Visit * Reason Onset Date Comments Other 10/14/2022 Encounter Details Date Type Department Care Team ([facility] Contact Info) Description 10/14/2022 [place] [address] Mike Perez III, MD [facility] [place] [address] Other Social History Tobacco Use Types Packs/Day Years [...] Telephone Encounter - Greta Neely RN - 10/14/2022 9:43 AM EDT I attempted to phone pt to discuss starting Kesimpta and obtain her new insurance information. There was no answer. Message left on named voice mail to call back [phone]. documented in this encounter Plan of Treatment Not on file documented as of this encounter Goals Goal Patient Goal Type Associated Problems Recent Progress Patient-Stated? Author Home Medication Compliance and Understanding Patient Facing Action Plan No Chidi Tapia, [facility] Note: Aria hopes to keep relapses from recurring frequently documented as of this encounter Visit Diagnoses Not on filedocumented in this encounter Care Teams Dictating Machine Transcriber Relationship Specialty Start Date End Date Nadine Mcduffie MD [address] [place] [address] PCP - General Family Medicine 03/27/17 documented as of this encounter
--- OUTSIDE RECORDS SUMMARY | 2024-05-22 19:41 | XMS_ITS | Encounter Summary ---
Author Organization [facility] [place] [address] Care Team Providers Care Scan Coordinator Name Role Phone Nadine Mcduffie MD Primary Care Provider Reason for Visit * Reason Comments Follow-up Encounter Details Date Type Department Care Team ([facility] Contact Info) Description 03/30/2022 10:00 AM EDT [place] [address] Mike Perez III, MD [facility] [place] [address] Multiple sclerosis; Tremor Social History Tobacco Use Types Packs/Day Years [...] on file documented as of this encounter Last Filed Vital Signs Vital Sign Reading Time Taken Comments Blood Pressure 129/81 03/30/2022 9:43 AM EDT Pulse 95 03/30/2022 9:43 AM EDT Temperature - - Respiratory Rate - - Oxygen Saturation 98% 03/30/2022 9:43 AM EDT Inhaled Oxygen Concentration - - Weight 102.1 kg (225 lb) 03/30/2022 9:43 AM EDT Height 163.8 cm (5' 4.5) 03/30/2022 9:43 AM EDT Body Mass Index 38.02 03/30/2022 9:43 AM EDT documented in this encounter Patient Instructions * Patient Instructions* Mike Perez III, MD - 03/30/2022 10:00 AM EDT Vaccines: Prevnar 20 Influenza Covid Booster Blood work today documented in this encounter Progress Notes * Mike Perez III, MD - 03/30/2022 10:00 AM EDT [facility] Follow-Up Visit Dear Nadine Mcduffie MD, I saw Aria Waller in clinic today in follow-up for multiple sclerosis. She was unaccompanied at today's visit. Below is my progress note with impression and plan. Please do not hesitate to call with any questions. Appointment time: 10:05 AM-10:40 AM (35 minutes) DISEASE SUMMARY: Principal neurologic diagnosis: MS Diagnosis of MS: 2018 - onset possibly in 2014 CSF: 8 oligoclonal bands, elevated IgG index and IgG synthesis rate Disease course at onset: relapsing Current disease course: relapsing Relapses: 2015 - R thigh numbness (possible relapse) 10/2016 - R arm myoclonic jerks 04/2019 - R leg weakness EDSS (today): 2.5 (last 2.5 in January 2020) MS Severity Score (EDSS and Disease Duration): 6.04 Pertinent findings to emphasize are: myD-H Multiple Sclerosis 09/07/2017 09/21/2017 01/04/2018 04/09/2018 [...] 98 85 Treatment History Previous disease therapies: n/a Current disease therapies: Copaxone (10/2017) Imaging History Most recent MRI brain: 01/23/2020 Most recent MRI cervical spine: 09/21/2017 Most recent MRI thoracic spine: 09/21/2017 Interval History: Aria was last seen in clinic in January 2020. At that time she not report any new or worsening neurological symptoms. She had prior MS relapse in late 2018 with right-sided weakness. She continued on Copaxone. Today, Aria reports that in the summer 2021 she developed new onset right foot weakness with associated foot drop and increased difficulties with ambulation. At worst this lasted for approximately 4to 6 weeks and then gradually improved, but never back to her baseline. She is continued on Copaxone without missed doses. MS Symptom Review: Cognition: no reported issues Fatigue: improved with exercise and weigh tloss Neuropathic symptoms: none Spasms/spasticity: Occasional spasms in her right arm and leg for which she occasionally takes baclofen 5 mg as needed - does not take on a regular basis due to sedation; she was prescribed gabapentin but she developed fever that resolved after stopping on 2 occasions Tremor: on lamotrigine 75 mg 2 times daily Ambulation: Possibly restricted to 1 mile Falls: 0 in the past 6 months Lifestyle: Employment: Works for a [employer] company Exercise: Not regularly exercising, on her feet more regularly at work Current Medications: reviewed and updated in EMR Review of Systems A ROS was obtained, reviewed with the patient. Pertinent positives and negatives were included in the HPI. Physical Examination She was alert and oriented to person, place, and time with normal language, attention and concentration, recent and remote memory, praxis, and intellectual function. Mood was euthymic. Affect was congruent. ?? Visual jones were full to confrontation. Ocular ductions were full without nystagmus. Facial sensation was normal. Muscles of facial expression moved normally. Hearing was normal. Palatal movements were normal. Trapezius power and tongue movements were normal. There was no dysarthria. ?? Motor tone was normal. There was no pronator drift. Intermittent, small, irregular amplitude resting and action tremor in the R arm that improved with distraction. No myoclonic jerk. ?? Upper extremities (R/L) Classification Counselor 5/5 Finger abduction 5/5 Finger extension 5/5 Wrist extension 5/5 Elbow flexion 5/5 Elbow extension 5/5 Shoulder abduction 5/5 ?? Lower extremities (R/L) Hip flexion 5-/5 Knee extension 5/5 Knee flexion 5-/5 Ankle plantarflexion 5/5 Ankle dorsiflexion 5-/5 Deep tendon reflexes (R/L): Biceps (difficult to assess due to tremor)/2+ Triceps tremor/2+ Knees 2+>2+ Ankles 2+> 2 + Temperature sensation was decreased in the RUE. Vibratory sensation was slightly reduced at the toes to about 10-12 seconds. Negative Romberg. ?? No dysmetria with [id number] testing bilaterally. Finger tapping was rapid and accurate bilaterally. ?? Standard gait was notable for steppage gait on the right. She had moderate difficulties with tandemwalk. Timed 25 foot walk: 4.7s (stable) REVIEW OF IMAGING STUDIES: MRI brain wo contrast 03/30/2022 (last 01/23/2020) IMPRESSION New lesion involving the genu of the left internal capsule. Assessment: ICD-10-CM 1. Multiple sclerosis G35 CBC (with Diff) Comprehensive metabolic panel (non-fasting) Hepatitis B Core Antibody, Total Hepatitis B Surface Antigen Hepatitis B Surface Antibody Hepatitis C Antibody QuantiFERON-TB Gold Varicella zoster Antibody, IgG pneumococcaL 20-valent, PF, (Prevnar 20) 0.5 mL Syringe lamoTRIgine (LaMICtal) 100 mg Tablet Varicella zoster Antibody, IgG QuantiFERON-TB Gold Hepatitis C Antibody Hepatitis B Surface Antibody Hepatitis B Surface Antigen Hepatitis B Core Antibody, Total Comprehensive metabolic panel (non-fasting) CBC (with Diff) 2. Tremor R25.1 lamoTRIgine (LaMICtal) 100 mg Tablet Aria Waller is a 41 y.o. woman with relapsing MS with activity on Copaxone. She had recent episode of worsening right-sided weakness particularly with right foot drop over thesummer 2021. She has been adherent to Copaxone treatment. Neurological examination notable for new right ankle dorsiflexion weakness and steppage gait on the right. MRI scan of brain from 03/30/2022 showing a new left internal capsule lesion likely corresponding to her worsening right-sided weakness. Her last relapse happened in 2019 with right leg weakness and new lesion in the left corpus callosum. Given ongoing disease activity we discussed switching to a more efficacious MS immunotherapy. We specifically discussed the following medications: Dimethyl fumarate, fingolimod, ocrelizumab, and ofatumumab. After discussion of efficacy, administration, safety concerns, and potential side effects she was most interested in starting ofatumumab (Kesimpta). We specifically discussed safety concerns including: Reactivation of latent infections including hepatitis B, hepatitis C, tuberculosis; increased risk of infections including COVID-19; decreased immune response to vaccinations; potential increased risk for PML. She was advised to get Prevnar 20, influenza, and COVID-19 vaccinations completed at least 1 month prior to starting Kesimpta. Plan: 1. Continue Copaxone -plan on switching to ofatumumab (Kesimpta) 2. Prevnar 20 and influenza vaccinations; COVID-19 booster vaccination 1 month prior to starting ofatumumab 3. Tremor: Increase lamotrigine to 100 mg 2 times daily 4. Recommend regular exercise Follow-up: 2 months via telehealth Thank you for allowing us to participate in [facility]. If you have questions or concerns please do not hesitate to call our clinic at [phone]. Mike Perez III, MD [employer] Manager of Neurology [facility] More than 50% of this 35 minute [id number] encounter was spent in counseling on diagnosis, prognosis, symptom management, and medications. 7:56 AM 03/31/2022 documented in this encounter Plan of Treatment Not on file documented as of this encounter Goals Goal Patient Goal Type Associated Problems Recent Progress Patient-Stated? Author Home Medication Compliance and Understanding Patient Facing Action Plan Chidi Mattson, [facility] Note: Aria hopes to keep relapses from recurring frequently documented as of this encounter Procedures Procedure Name Priority Date/Time Associated Diagnosis Comments HC QUANTIFERON Routine 03/30/2022 11:22 AM EDT Multiple sclerosis HEMOGRAM Routine 03/30/2022 11:22 AM EDT Multiple sclerosis DIFFERENTIAL, AUTOMATED Routine 03/30/2022 11:22 AM EDT Multiple sclerosis HC HEPATITIS C ANTIBODY Routine 03/30/2022 11:22 AM EDT Multiple sclerosis HC HEPATITIS B CORE AB Routine 11:22 AM EDT Multiple sclerosis HC HEPATITIS B SURFACE AB Routine 03/30/2022 11:22 AM EDT Multiple sclerosis HC HEPATITIS B SURFACE AG Routine 03/30/2022 11:22 AM EDT Multiple sclerosis HC CBC,PLT & AUTO DIFF Routine 11:22 AM EDT Multiple sclerosis HC VENIPUNCTURE Routine 03/30/2022 11:22 AM EDT Multiple sclerosis COMPREHENSIVE METABOLIC PANEL Routine 03/30/2022 11:22 AM EDT Multiple sclerosis documented in this encounter Results * (ABNORMAL) Differential, Automated (03/30/2022 11:22 AM EDT) Neutrophil % 66.3 % [facility] Neutrophil Absolute 7.79(H) 1.70 - 6.10 x10(3)/mc L [facility] Lymph % 22.1 % [facility] Lymphocytes Abs 2.6 0.9 - 3.2 x10(3)/ L [facility] Monocyte % 7.8 % [facility] Monocyte Abs 0.9 0.3 - 0.9 x10(3)/[facility] Eos % 3.1 % [facility] Eosinophils Abs 0.4 0.0 - 0.4 x10(3)/[facility] Basophil % 0.5 % [facility] Baso Absolute 0.1 0.0 - 0.1 x10(3)/[facility] Immature Gran % 0.20 % [facility] Comment: Immature granulocytes(IG's)percentage and absolute count will include metamyelocytes, myelocytes, and promyelocytes. Blood smears from CBCs yielding IG's will be scanned manually for concordance. If this scan disagrees with the automated IG or if promyelocytes are noted, a manual differential will be performed. Immature Gran Absolute 0.02 0.00 - 0.04 x10(3)/[facility] Blood 03/30/2022 11:2 2 AM EDT 03/30/2022 11:27 AM EDT Narrative Resulting Agency Comment Spec In Lab Mike Perez III, MD HEMATOLOGY ORDERA BLES [facility] [place] [address] * (ABNORMAL) Hemogram (03/30/2022 11:22 AM EDT) White Blood Cell 11.7(H) 4.0 - 9.5 x10(3)/[facility] Red Blood Cell 5.14 4.00 - 5.21 x10(6)/[facility] Hemoglobin 15.1 11.7 - 15.5 g/dL [facility] Hematocrit 44.6 35.7 - 45.8 % [facility] Mean Cell Volume 86.8 82.6 - 94.4 fL [facility] Mean Cell Hemoglobin 29.4 27.1 - 32.0 pg [facility] Mean Cell Hemoglobin Concentration 33.9 31.7 - 35.0 g/dL [facility] Platelet 267 145 - 357 x10(3)/mc L [facility] RDW Standard Deviation 39.8 37.0 - 46.0 fL [facility] RDW coefficient of variation 12.5 11.5 - 14.1 % [facility] Mean Platelet Volume 10.2 7.6 - 12.9 fL [facility] NRBC% auto 0.0 % [facility] NRBC Absolute 0.000 0.000 - 0.000 x10(3)/mc L [facility] Blood 03/30/2022 11:2 2 AM EDT 03/30/2022 11:27 AM EDT Narrative Resulting Agency Comment Spec In Lab Mike Perez III, MD HEMATOLOGY ORDERA BLES Performing Organization Address City/[facility]/ZIP Co de Phone Number [facility] [place] [address] * Varicella zoster Antibody, IgG (03/30/2022 11:22 AM EDT) [facility] Varicella Zoster Antibody IgG Positive Positive [facility] Comment: A positive result for this assay is considered to be an indicator of positive immune status. Blood 03/30/2022 11:2 2 AM EDT 03/30/2022 12:16 PM EDT Narrative Resulting Agency Comment Spec In Lab Mike Perez III, MD IMMUNOLOGY ORDERA BLES Performing Organization Address City/[facility]/ZIP Co de Phone Number [facility] [place] [address] * QuantiFERON-TB Gold (03/30/2022 11:22 AM EDT) [facility] Quantiferon Nil 0.000 IU/mL [facility] QFT TB Ag1-Nil 0.000 IU/mL [facility] QFT TB Ag2-Nil 0.006 IU/mL [facility] Quantiferon Mitogen-Nil 10.000 IU/mL [facility] Quantiferon-TB Gold Negative Negative [facility] Quantiferon Tb Interp M. tuberculosis infection NOT likely A negative specimen should have a TB1 Ag minus Nil value and TB2 Ag minus Nil value of less than 0.35 IU/mL OR a TB1 Ag minus Nil or TB2 Ag minus Nil value greater than or equal to 0.35 IU/mL AND a TB Ag minus Nil value from the same tube of less than 25% of the Nil value. A negative specimen must also have a mitogen minus Nil value greater than or equal to 0.5 IU/mL. A negative QFT-Plus result does not preclude the possibility of M. tuberculosis infection. False negative results can occur due to stage of infection (specimen obtained prior to the development of immune response), co-morbid conditions which affect immune function, or other immunological factors. [facility] Blood 03/30/2022 11:2 2 AM EDT 03/31/2022 7:32 AM EDT Narrative Resulting Agency Comment Spec In Lab Mike Perez III, MD CHEMISTRY ORDERAB LES [facility] [place] [address] * Hepatitis C Antibody (03/30/2022 11:22 AM EDT) Hepatitis C Antibody Negative Negative [facility] Blood 03/30/2022 11:2 2 AM EDT 03/30/2022 11:27 AM EDT Narrative Resulting Agency Comment Spec In Lab Mike Perez III, MD CHEMISTRY ORDERAB LES [facility] [place] [address] * Hepatitis B Surface Antibody (03/30/2022 11:22 AM EDT) Hepatitis B Surface Antibody, Quantitative 4.8 IU/L [facility] Comment: HepB Surface Ab Quant: Unvaccinated: < 8.5 IU/L Vaccinated: > 11.5 IU/L Hepatitis B Surface Antibody Negative [facility] Comment: Patient is presumed to be not vaccinated or immune to HBV infection. Expected Results: Vaccinated: Positive Unvaccinated: Negative Blood 03/30/2022 11:2 2 AM EDT 03/30/2022 11:27 AM EDT Narrative Resulting Agency Comment Spec In Lab Mike Perez III, MD CHEMISTRY ORDERAB LES Performing Organization Address City/[facility]/ZIP Co de Phone Number [facility] [place] [address] * Hepatitis B Surface Antigen (03/30/2022 11:22 AM EDT) Hepatitis B Surface Antigen Negative Negative [facility] Blood 03/30/2022 11:2 2 AM EDT 03/30/2022 11:27 AM EDT Narrative Resulting Agency Comment Spec In Lab Mike Perez III, MD CHEMISTRY ORDERAB LES Performing Organization Address City/[facility]/ZIP Co de Phone Number [facility] [place] [address] * Hepatitis B Core Antibody, Total (03/30/2022 11:22 AM EDT) Hepatitis B Core Antibody Negative Negative [facility] Blood 03/30/2022 11:2 2 AM EDT 03/30/2022 11:27 AM EDT Narrative Resulting Agency Comment Spec In Lab Mike Perez III, MD CHEMISTRY ORDERAB LES [facility] [place] [address] * Comprehensive metabolic panel (non-fasting) (03/30/2022 11:22 AM EDT) Glucose 95 65 - 199 mg/dL [facility] Comment:Diabetes: >=200 mg/d L plus symptoms Blood Urea Nitrogen 10 8 - 18 mg/dL [facility] Creatinine 0.81 0.70 - 1.20 mg/dL [facility] Sodium 137 135 - 145 mmol/L [facility] Potassium 3.8 3.5 - 5.0 mmol/L [facility] Comment: Please note: ??Patients with WBC >100,000 may have falsely elevated Potassium levels. ??For accurate Potassium quantification in these patients send serum separator tube (gold top) for subsequent determinations. ??Contact the Clinical Chemistry Laboratory if there are any questions. Chloride 103 98 - 107 mmol/L [facility] Carbon Dioxide 25 22 - 31 mmol/L [facility] Anion Gap 9 5 - 15 mmol/L [facility] Calcium 9.0 8.5 - 10.5 mg/dL [facility] Protein, Total 7.2 6.1 - 8.0 g/dL [facility] Albumin 4.1 3.2 - 5.2 g/dL [facility] Aspartate Aminotransferase 14 0 - 30 unit/L [facility] Alanine Aminotransferase 16 0 - 30 unit/L [facility] Alkaline Phosphatase 81 35 - 105 unit/L [facility] Bilirubin, Total 0.2 0.2 - 1.3 mg/dL [facility] Est Glomerular Filtration Rate 93 >=60 mL/min/1. 73 m?? [facility] Comment: This patient's estimated GFR was calculated using the 2020 CKD-EPI equation. The estimated GFR can vary from the measured GFR by up to 30% in the absence of rapidly changing kidney function. Assessment of the estimated GFR is not appropriate when creatinine concentrations are rapidly changing. For clinical situations in which a more precise estimate of GFR is necessary, consider alternative methods of GFR estimation such as a 24-hour urine creatinine clearance. Assignment of CKD stage 1-5 for patients with an eGFR near the transition point between stages may be based on clinical assessment of muscle mass and symptoms in addition to eGFR. Blood 03/30/2022 11:2 2 AM EDT 03/30/2022 11:27 AM EDT Narrative Resulting Agency Comment Spec In Lab Mike Perez III, MD CHEMISTRY ORDERAB LES Performing Organization Address City/State/[facility] Co de Phone Number [facility] [place] [address] documented in this encounter Visit Diagnoses Diagnosis Multiple sclerosis Tremor Abnormal involuntary movements documented in this encounter Care Teams Scan Coordinator Relationship Specialty Start Date End Date Nadine Mcduffie MD [address] [place] [address] PCP - General Family Medicine 03/27/17 documented as of this encounter
--- OUTSIDE RECORDS SUMMARY | 2024-05-22 19:41 | XMS_ITS | Encounter Summary ---
Author Organization [facility] [place] [address] Care Team Providers Care Laundry Sorter Name Role Phone Nadine Mcduffie MD Primary Care Provider [phone] Reason for Visit * Reason Comments Medication Refill Encounter Details Date Type Department Care Team ([facility] Contact Info) Description 11/10/2021 [place] [address] Mike Perez III, MD [facility] [place] [address] Myoclonus Social History Tobacco Use Types Packs/Day Years [...] encounter Miscellaneous Notes * Telephone Encounter - Yesenia Mars CMA - 11/10/2021 10:58 AM EDT Surescript request for : lamictal Last rx: 06/29/21 Quantity: 1080 Refills: 1 Last appt: 01/23/20 Next appt: 01/06/22 documented in this encounter Plan of Treatment Not on file documented as of this encounter Goals Goal Patient Goal Type Associated Problems Recent Progress Patient-Stated? Author DH Home Medication Compliance and Understanding Patient Facing Action Plan No Chidi Tapia, [facility] Note: Aria hopes to keep relapses from recurring frequently documented as of this encounter Visit Diagnoses Diagnosis Myoclonus documented in this encounter Care Teams Laundry Sorter Relationship Specialty Start Date End Date Nadine Mcduffie MD [address] [place] [id number] PCP - General Family Medicine 03/27/17 documented as of this encounter
--- OUTSIDE RECORDS SUMMARY | 2024-05-22 19:41 | XMS_ITS | Encounter Summary ---
Author Organization [facility] Address [facility] [place] [address] Care Team Providers Care Manager Flight Operations Name Role Phone Nadine Mcduffie MD Primary Care Provider [phone] Encounter Details Date Type Department Care Team (Late st Contact Info) Description 08/25/2022 [place] [address] Mike Perez III, MD [facility] [place] [address] Social History Tobacco Use Types Packs/Day Years [...] encounter Miscellaneous Notes * Telephone Encounter - Judit Cruz - 08/25/2022 10:19 AM EST Message to provider * Telephone Encounter - Judit Cruz - 08/25/2022 10:09 AM EST Copied from CRM #[id number]. Topic: Specialty Dept CRMs - Generic Call >> Aug 25, 2022 10:06 AM Jasbir Knapp wrote: Specialist: Dr. Perez Relationship (if other than patient-full name): Aria Waller - Self Reason for Call: Patient is calling to state she is having issue with her Internet due to the weather. Patient is wondering if Dr. Perez could just call her for her appointment today at 11:30. Pleasecall to assist. documented in this encounter Plan of Treatment Not on file documented as of this encounter Goals Goal Patient Goal Type Associated Problems Recent Progress Patient-Stated? Author DH Home Medication Compliance and Understanding Patient Facing Action Plan No Chidi Tapia, [facility] Note: Aria hopes to keep relapses from recurring frequently documented as of this encounter Visit Diagnoses Not on filedocumented in this encounter Care Teams Manager Flight Operations Relationship Specialty Start Date End Date Nadine Mcduffie MD [address] [place] [address] PCP - General Family Medicine 03/27/17 documented as of this encounter
--- OUTSIDE RECORDS SUMMARY | 2024-05-22 19:41 | XMS_ITS | Encounter Summary ---
Author Organization [facility] [place] [address] Care Team Providers Care Director Of Quality Improvement Name Role Phone Nadien Mcduffie MD Primary Care Provider [phone] Encounter Details Date Type Department Care Team (Latest Contact Info) Description 02/10/2023 Travel Social History Tobacco Use Types Packs/Day [...] Patient Facing Action Plan No Chidi Tapia, [facility] Note: Aria hopes to keep relapses from recurring frequently documented as of this encounter Visit Diagnoses Not on filedocumented in this encounter Care Teams Director Of Quality Improvement Relationship Specialty Start Date End Date Nadine Mcduffie MD [address] [place] [address] PCP - General Family Medicine 03/27/17 documented as of this encounter
--- OUTSIDE RECORDS SUMMARY | 2024-05-22 19:41 | XMS_ITS | Encounter Summary ---
[place] [address] Care Team Providers Care Tool Grinder Operator External Name Role Phone Nadine Mcduffie MD Primary Care Provider [phone] Encounter Details Date Type Department Care Team ([facility] Contact Info) Description 08/30/2023 Specialty [place] [address] Yesenia Beal, [employer] Social History Tobacco Use Types Packs/Day Years [...] Type Associated Problems Recent Progress Patient-Stated? Author [facility] Medication Compliance and Understanding Patient Facing Action Plan No Chidi Tapia, [facility] Note: Aria hopes to keep relapses from recurring frequently documented as of this encounter Visit Diagnoses Not on filedocumented in this encounter Care Teams Tool Grinder Operator External Relationship Specialty Start Date End Date Nadine Mcduffie MD [address] [place] [address] PCP - General Family Medicine 03/27/17 documented as of this encounter
--- OUTSIDE RECORDS SUMMARY | 2024-05-22 19:41 | XMS_ITS | Encounter Summary ---
[place] [address] Care Team Providers Care Assistant Chief Engineer Name Role Phone Nadine Mcduffie MD Primary Care Provider [phone] Reason for Visit * High Dollar Medication (Routine) - Pending Review Specialty Diagnoses / Procedures Referred By Tonia argueta Referred To Contact Neurology Diagnoses Muscle spasm Procedures Onabotulinumtoxin A (BOTOX) Authorizations Request (IN CLINIC) TC ONABOTULINUMTOXINA, 1 UNIT, INJECTION PRO CHEMODENERVATION ONE EXTREMITY 1-4 MUSCLE(S) Brianna Collado MD [facility] [place] [address] Brianna Collado MD [facility] [place] [address] Referral ID Status Reason Start Date Expiration Date Visits Requested Visits Authorized [id number] Pending Review Consult, Test & Treat 09/06/2022 09/07/2024 4 7 Encounter Details Date Type Department Care Team ([facility] Contact Info) Description 12/11/2023 11:30 AM EDT Office Visit Neurology at [address] [address] Brianna Collado MD [facility] [place] [address] Muscle spasticity Social History Tobacco [...] Procedure Notes * Brianna Collado MD - 12/11/2023 11:30 AM EDTAssociated Order(s): CHEMODENERVATION W/ EMG GUIDANCE Chemodenervation Procedure [...] botox kicks in. Codes for chemodenervation visit: 64874, 68681 Exam: Procedure: A time out was performed [...] units Biceps 40 units Pectoralis 35 units levator 35 units (previously trap) Deltoid 30 units (previously supraspinatus) 200 units total and 0 waste The patient tolerated the procedure well with no immediate adverse events. Follow up will be in 3 months. Brianna Collado MD [facility] Neurology-Movement Disorders documented in this encounter Plan of Treatment Not on file documented as of this encounter Goals Goal Patient Goal Type Associated Problems Recent Progress Patient-Stated? Author DH Home Medication Compliance and Understanding Patient Facing Action Plan No Chidi Tapia, RPH Note: Aria hopes to keep relapses from recurring frequently documented as of this encounter Procedures Procedure Name Priority Date/Time Associated Diagnosis Comments CHEMODENERVATION W/ EMG GUIDANCE Routine 12/11/2023 11:30 AM EDT documented in this encounter Results * CHEMODENERVATION W/ EMG GUIDANCE (12/11/2023 11:30 AM EDT) Narrative Brianna Collado MD - 12/11/2023 11:30 AM EDT Brianna Collado MD ? 12/11/2023 11:51 AM Chemodenervation Procedure Note Diagnosis: spasticity due to [...] botox kicks in. Codes for chemodenervation visit: 61895, 17835 Exam: Procedure: A time out was performed [...] units Biceps 40 units Pectoralis 35 units levator 35 units (previously trap) Deltoid 30 units (previously supraspinatus) 200 units total and 0 waste The patient tolerated the procedure well with no immediate adverse events. Follow up will be in 3 months. Brianna Collado MD [facility] Neurology-Movement Disorders Brianna Collado MD NEUROLOGY ORDERABL ES documented in this encounter Visit Diagnoses Diagnosis Muscle spasticity Spasm of muscle documented in this encounter Administered Medications Inactive Administered Medications - up to 3 most recent administrations Medication Order MAR Action Action Date Dose Rate Site botulinum toxin type A (Botox) injection 200 Units 200 Units, Intramuscular, ONCE, 1 dose, On Mon12/11/23 at 1200, Routine Given 12/11/2023 11:51 AM EDT 200 Units documented in this encounter Care Teams Assistant Chief Engineer Relationship Specialty Start Date End Date Nadine Mcduffie MD [address] [place] [address] PCP - General Family Medicine 03/27/17 documented as of this encounter
--- OUTSIDE RECORDS SUMMARY | 2024-05-22 19:41 | XMS_ITS | Encounter Summary ---
[place] [address] Care Team Providers Care Lawn Mower Mechanic Name Role Phone Nadine Mcduffie MD Primary Care Provider [phone] Reason for Visit * Reason Comments Specialty Pharmacy Review Kesimpta Encounter Details Date Type Department Care Team ([facility] Contact Info) Description 03/30/2022 Specialty [place] [address] Sammy Yin RPH Social History Tobacco Use [...] Progress Notes * Sammy Yin RPH - 03/30/2022 11:59 PM EDT The [facility] has completed a benefits investigation for Aria Waller to review their eligibility to fill at [facility]. Per patient's medication list they are prescribed Kesimpta and the medication is not able to be filled at the [facility]. Insurance requires it be filled with [facility]. documented in this encounter Plan of Treatment [...] on filedocumented in this encounter Care Teams Lawn Mower Mechanic Relationship Specialty Start Date End Date Nadine Mcduffie MD [address] [place] [address] PCP - General Family Medicine 03/27/17 documented as of this encounter
--- OUTSIDE RECORDS SUMMARY | 2024-05-22 19:41 | XMS_ITS | Encounter Summary ---
Author Organization [facility] [place] [address] Care Team Providers Care Assistant Analyst Name Role Phone Nadine Mcduffie MD Primary Care Provider [phone] Reason for Visit * Reason Onset Date Comments Bumped Appointment 12/03/2021 Encounter Details Date Type Department Care Team ([facility] st Contact Info) Description 12/03/2021 [place]phone [place] [address] Mike Perez III, MD [facility] [place] [place] [address] Bumped Appointment Social History Tobacco Use Types Packs/Day [...] encounter Miscellaneous Notes * Telephone Encounter - Ester Eaton - 12/03/2021 10:11 AM EDT This conventional underwriter is calling patient in regards to her 01/06 appointment. This is needing to be rescheduleddue to provider being unexpectedly out. Looking to schedule in December, Please call Ester documented in this encounter Plan of Treatment Not on file documented as of this encounter Goals Goal Patient Goal Type Associated Problems Recent Progress Patient-Stated? Author DH Home Medication Compliance and Understanding Patient Facing Action Plan No Chidi Tapia, [facility] Note: Aria hopes to keep relapses from recurring frequently documented as of this encounter Visit Diagnoses Not on filedocumented in this encounter Care Teams Assistant Analyst Relationship Specialty Start Date End Date Nadine Mcduffie MD [address] [place] [address] PCP - General Family Medicine 03/27/17 documented as of this encounter
--- OUTSIDE RECORDS SUMMARY | 2024-05-22 19:41 | XMS_ITS | Encounter Summary ---
[place] [address] Care Team Providers Care Air Valve Mechanic Name Role Phone Nadine Mcduffie MD Primary Care Provider [phone] Reason for Visit * Reason Comments Specialty Pharmacy Review Encounter Details Date Type Department Care Team ([facility] Contact Info) Description 02/16/2023 Specialty [place] [address] Sammy Yin RPH Social History Tobacco Use [...] Progress Notes * Sammy Yin RPH - 02/16/2023 11:59 PM EDT The - Specialty Pharmacy has completed a benefits investigation for Aria Waller to review their eligibility to fill at [facility]. Per patient's medication list they are prescribed Kesimpta and the patient's eligibility to fill at [facility] is pending further review atthis time. documented in this encounter Plan of Treatment [...] on filedocumented in this encounter Care Teams Air Valve Mechanic Relationship Specialty Start Date End Date Nadine Mcduffie MD [address] [place] [address] PCP - General Family Medicine 03/27/17 documented as of this encounter
--- OUTSIDE RECORDS SUMMARY | 2024-05-22 19:41 | XMS_ITS | Encounter Summary ---
[place] [address] Care Team Providers Care Planer Stone Name Role Phone Nadine Mcduffie MD Primary Care Provider [phone] Reason for Visit * High Dollar Medication (Routine) - Pending Review Specialty Diagnoses / Procedures Referred By Tonia argueta Referred To Contact Neurology Diagnoses Muscle spasm Procedures Onabotulinumtoxin A (BOTOX) Authorizations Request (IN CLINIC) TC ONABOTULINUMTOXINA, 1 UNIT, INJECTION PRO CHEMODENERVATION ONE EXTREMITY 1-4 MUSCLE(S) Brianna Collado MD [facility] [address] Brianna Collado MD [facility] [address] Referral ID Status Reason Start Date Expiration Date Visits Requested Visits Authorized [id number] Pending Review Consult, Test & Treat 09/06/2022 09/07/2024 4 7 Encounter Details Date Type Department Care Team ([facility] Contact Info) Description 10/03/2022 8:30 AM EDT [place] [address] Brianna Collado MD [facility] [place] [address] Muscle spasticity Social History Tobacco [...] Procedure Notes * Brianna Collado MD - 10/03/2022 8:30 AM EDTAssociated Order(s): CHEMODENERVATION W/ EMG GUIDANCE Chemodenervation Procedure Note Diagnosis: spasticity due to MS HPI: She has muscle spasticity and tremor due to MS. She has failed oral muscle relaxers and tremor meds. Keppra was most helpful but caused suicidal ideation. We are now doing boto injections. Risks, benefits and reasonable expectations explained. Codes for chemodenervation visit: 84608, 83170 Exam: Procedure: A time out was performed The patient was positioned for best access to muscles to be injected. The area was cleaned with alcohol swabs. 100 units of onabotulinumtoxinA was prepared by 1cc saline to 100 units toxin dilution with preservative free saline EMG guidance was used for this procedure for anatomic localization of arm muscles. Injections: Triceps 30 units Pectoralis 35 units Supraspinatus 35 units 100 units total and 0 waste The patient tolerated the procedure well with no immediate adverse events. Follow up will be in 3 months. Brianna Collado MD [facility] Neurology-Movement Disorders documented in this encounter Plan of Treatment Not on file documented as of this encounter Goals Goal Patient Goal Type Associated Problems Recent Progress Patient-Stated? Author DH Home Medication Compliance and Understanding Patient Facing Action Plan No Chidi Tapia, [facility] Note: Aria hopes to keep relapses from recurring frequently documented as of this encounter Procedures Procedure Name Priority Date/Time Associated Diagnosis Comments CHEMODENERVATION W/ EMG GUIDANCE Routine 10/03/2022 8:30 AM EDT documented in this encounter Results * CHEMODENERVATION W/ EMG GUIDANCE (10/03/2022 8:30 AM EDT) Narrative Brianna Collado MD - 10/03/2022 8:30 AM EDT Brianna Collado MD ? 10/03/2022 ??9:06 AM Chemodenervation Procedure Note Diagnosis: spasticity due to MS HPI: She has muscle spasticity and tremor due to MS. She has failed oral muscle relaxers and tremor meds. Keppra was most helpful but caused suicidal ideation. We are now doing boto injections. Risks, benefits and reasonable expectations explained. Codes for chemodenervation visit: 18631, 47558 Exam: Procedure: A time out was performed The patient was positioned for best access to muscles to be injected. The area was cleaned with alcohol swabs. 100 units of onabotulinumtoxinA was prepared by 1cc saline to 100 units toxin dilution with preservative free saline EMG guidance was used for this procedure for anatomic localization of arm muscles. Injections: Triceps 30 units Pectoralis 35 units Supraspinatus 35 units 100 units total and 0 waste The patient tolerated the procedure well with no immediate adverse events. Follow up will be in 3 months. Brianna Collado MD [facility] Neurology-Movement Disorders Brinana Collado MD NEUROLOGY ORDERABL ES documented in this encounter Visit Diagnoses Diagnosis Muscle spasticity Spasm of muscle documented in this encounter Administered Medications Inactive Administered Medications - up to 3 most recent administrations Medication Order MAR Action Action Date Dose Rate Site botulinum toxin type A (Botox) injection 100 Units 100 Units, Intramuscular, ONCE, 1 dose, On Mon10/03/22 at 0915, Routine Given 10/03/2022 9:06 AM EDT 100 Units documented in this encounter Care Teams Planer Stone Relationship Specialty Start Date End Date Nadine Mcduffie MD [address] [place] [address] PCP - General Family Medicine 03/27/17 documented as of this encounter
--- OUTSIDE RECORDS SUMMARY | 2024-05-22 19:41 | XMS_ITS | Encounter Summary ---
[place] [address] Care Team Providers Care Hat Former Name Role Phone Nadine Mcduffie MD Primary Care Provider [phone] Reason for Visit * Reason Comments Specialty Pharmacy Review Encounter Details Date Type Department Care Team ([facility] Contact Info) Description 10/03/2022 Specialty [place] [address] Sammy Yin RPH Social History Tobacco Use [...] Progress Notes * Sammy Yin RPH - 10/03/2022 11:59 PM EDT The [facility] has completed a benefits investigation for Aria Waller to review their eligibility to fill at [facility]. Per patient's medication list they are prescribed glatiramer and the medication is not able to be filled at the [facility]. documented in this encounter Plan of Treatment Not on file documented as of this encounter Goals Goal Patient Goal Type Associated Problems Recent Progress Patient-Stated? Author DH Home Medication Compliance and Understanding Patient Facing Action Plan No Chidi Tapia, [facility] Note: Aria hopes to keep relapses from recurring frequently documented as of this encounter Visit Diagnoses Not on filedocumented in this encounter Care Teams Hat Former Relationship Specialty Start Date End Date Nadine Mcduffie MD [address] [place] [address] PCP - General Family Medicine 03/27/17 documented as of this encounter
--- OUTSIDE RECORDS SUMMARY | 2024-05-22 19:41 | XMS_ITS | Encounter Summary ---
Author Organization [facility] Address [facility] [place] [address] Care Team Providers Care Stem Dryer Maintainer Name Role Phone Nadine Mcduffie MD Primary Care Provider [phone] Encounter Details Date Type Department Care Team (Late st Contact Info) Description 07/25/2023 Nurse [place]riage [place] [address] Mike Perez III, MD [facility] [place] [address] Social History Tobacco Use Types Packs/Day Years [...] encounter Miscellaneous Notes * Telephone Encounter - Florencia Black RN - 07/25/2023 10:14 AM EST Hot Call Warm Transfer Patient states that numbness developed last night, without a known trigger, in her left hand (middle finger, ring finger, and pinky), and left foot last night while she was getting ready to go to bed. She states that when she awakened this morning, the sensation was still present, and it has been consistent since then. She denies weakness, tingling to her left hand/foot, or any part of her body. She states that her strength, auger machine offbearer, and movement in her left hand and foot are normal, and she canstill function as normal. She denies loss of movement, vision, speech. She does note that she feels exhausted/more fatigued, and possible mild dizziness due to the tiredness today. She states that this has caused some difficulty thinking of words. Per the telephone conversation, patient does not audibly appear to be in distress, and there are no obvious speech/conversation difficulties. Patient also reports that she awakened with abdominal hiccups/twitching, a symptom that she reportsexperiencing intermittently for greater than 5 years. She states that she has never experienced a sudden flare in her MS symptoms, as they have previously progressed slowly, or were only visible on MRI. Instructed to call 911 if develop weakness, tingling, loss of movement/vision/speech. Instructed togo to ED if the current symptoms worsen/becomes severe.. Instructed to call us with any changes before we get back in touch with her. Patient verbalized understanding and agreed to plan. Patient states she lives in [facility] and would have no way to get to if needed, to see Dr. Perez. Instructed to go to [facility] ED if she is having emergent symptoms. Will forward to provider for review and recommendation. VENUS Kathleen Reason for Disposition Neurologic deficit of gradual onset (e.g., days to weeks), ANY of the following: * Weakness of the face, arm, or leg on one side of the body* Numbness of the face, arm, or leg on one side of the body* Loss of speech or garbled speech Protocols used: Neurologic [id number] documented in this encounter Plan of Treatment Not on file documented as of this encounter Goals Goal Patient Goal Type Associated Problems Recent Progress Patient-Stated? Author Home Medication Compliance and Understanding Patient Facing Action Plan No Chidi Tapia, [facility] Note: Aria hopes to keep relapses from recurring frequently documented as of this encounter Visit Diagnoses Not on filedocumented in this encounter Care Teams Stem Dryer Maintainer Relationship Specialty Start Date End Date Nadine Mcduffie MD [address] [place] [address] PCP - General Family Medicine 03/27/17 documented as of this encounter
--- OUTSIDE RECORDS SUMMARY | 2024-05-22 19:41 | XMS_ITS | Encounter Summary ---
Author [facility] [place] [address] Care Team Providers Care Carpenters Name Role Phone Nadine Mcduffie MD Primary Care Provider [phone] Reason for Visit * Reason Onset Date Comments Reminder Appointment 03/07/2024 Encounter Details Date Type Department Care Team ([facility] Contact Info) Description 03/07/2024 [place] [address] Mike Perez III, MD [facility] [place] [address] Reminder Appointment Social History Tobacco Use Types Packs/Day [...] Telephone Encounter - Yesenia Mars CMA - 03/07/2024 2:05 PM EDT Unable to reach this patient by phone to review their medications and allergies prior to their upcoming tele-appointment with the Neurology provider. No message left. documented in this encounter Plan of Treatment Not on file documented as of this encounter Goals Goal Patient Goal Type Associated Problems Recent Progress Patient-Stated? Author DH Home Medication Compliance and Understanding Patient Facing Action Plan No Chidi Tapia, [facility] Note: Aria hopes to keep relapses from recurring frequently documented as of this encounter Visit Diagnoses Not on filedocumented in this encounter Care Teams Carpenters Relationship Specialty Start Date End Date Nadine Mcduffie MD [address] [place] [address] PCP - General Family Medicine 03/27/17 documented as of this encounter
--- OUTSIDE RECORDS SUMMARY | 2024-05-22 19:41 | XMS_ITS | Encounter Summary ---
Author [facility] [place] [address] Care Team Providers Care Reformatory Attendant Name Role Phone Nadine Mcduffie MD Primary Care Provider [phone] Reason for Visit * Reason Onset Date Comments Appointment 09/07/2022 Encounter Details Date Type Department Care Team ([facility] Contact Info) Description 09/07/2022 Telephone [place] [address] Brianna Collado MD [facility] [place] [address] Appointment Social History Tobacco Use Types Packs/Day [...] * Telephone Encounter - Judit Cruz - 09/07/2022 3:20 PM EST Scheduling Instructions Provider: Tobias Visit Type (paste FARIHA Instructions or manually enter): btx If EMG Visit needed list diagnosis for the EMG to be used in Decision Tree: Appt Note: First Botox Additional Info Needed: Transfer to psychiatric secretary for scheduling * Telephone Encounter - Anthony Judit Tamez - 09/07/2022 3:20 PM EST ----- Message from Mike Perez III, MD sent at 09/06/2022 4:17 PM EST ----- Thanks, Eun!! ----- Message ----- From: Brianna Collado MD Sent: 09/06/2022 4:07 PM EST To: Mike Perez III, MD, # Yes maybe. I can take a look at the tremor. Judit could you see if this patient could see me on the in a procedure spot? I am going to put in a prior auth request so we can inject that day if it seems reasonable. ----- Message ----- From: Mike Perez III, MD Sent: 09/02/2022 1:44 PM EST To: MD Eun Hernández, Do you think that BOTOX would help with her RUE tremor? Hema documented in this encounter Plan of Treatment Not on file documented as of this encounter Goals Goal Patient Goal Type Associated Problems Recent Progress Patient-Stated? Author DH Home Medication Compliance and Understanding Patient Facing Action Plan Chidi Mattson, [facility] Note: Aria hopes to keep relapses from recurring frequently documented as of this encounter Visit Diagnoses Not on filedocumented in this encounter Care Teams Reformatory Attendant Relationship Specialty Start Date End Date Nadine Mcduffie MD [address] [place] [address] PCP - General Family Medicine 03/27/17 documented as of this encounter
--- OUTSIDE RECORDS SUMMARY | 2024-05-22 19:41 | XMS_ITS | Encounter Summary ---
Author Organization [facility] [place] [address] Care Team Providers Care Line Out Man Name Role Phone Nadine Mcduffie MD Primary Care Provider [phone] Reason for Visit * Reason Comments Medication Refill Encounter Details Date Type Department Care Team ([facility] Contact Info) Description 07/01/2022 [place] [address] Mike Perez III, MD [facility] [place] [address] Multiple sclerosis Social History Tobacco Use Types [...] Patient Facing Action Plan No Chidi Tapia, [facility] Note: Aria hopes to keep relapses from recurring frequently documented as of this encounter Visit Diagnoses Diagnosis Multiple sclerosis documented in this encounter Care Teams Line Out Man Relationship Specialty Start Date End Date Nadine Mcduffie MD [address] [place] [address] PCP - General Family Medicine 03/27/17 documented as of this encounter
--- OUTSIDE RECORDS SUMMARY | 2024-05-22 19:41 | XMS_ITS | Encounter Summary ---
Author Organization [facility] [place] [address] Care Team Providers Care Rn Lvn Name Role Phone Nadine Mcduffie MD Primary Care Provider [phone] Encounter Details Date Type Department Care Team ([facility] st Contact Info) Description 01/09/2023 [place] [id number] Greta Helm RN Social History Tobacco Use Types Packs/Day Years [...] Telephone Encounter - Greta Neely RN - 01/18/2023 4:52 PM EDT Pt phoned back. Pt states she has tremors to right arm from shoulder to her hand which causes significant pain. Shewas not able to use her right arm prior to botox stating it would flail in addition to the pain the tremors caused. She states she received the botox and within a week she noticed improvement and by the 3rd week shewas able to get more use out of her arm and the pain was significantly better. She reports that now it is 3 months past the last botox and she is struggling with her tremors and the significant pain from the tremors has returned. Plan: will forward message to PA staff. * Telephone Encounter - Natalia Penn - 01/18/2023 3:42 PM EDT Patient returned call was looking to discuss now. * Telephone Encounter - Greta Helm RN - 01/09/2023 11:38 AM EDT Call placed to pt to follow up on Botox for insurance approval 100 units of onabotulinumtoxinA was prepared by 1cc saline to 100 units toxin dilution with preservative free saline Injections: Triceps 30 units Pectoralis 35 units Supraspinatus 35 units Message left on voicemail requesting call back with time ranges pt will be at phone and able to take call today and tomorrow * Telephone Encounter - Greta Helm RN - 01/09/2023 11:38 AM EDT ----- Message from Greta Helm RN sent at 01/06/2023 4:54 PM EDT ----- Call pt to get Botox update for insurance approval documented in this encounter Plan of Treatment Not on file documented as of this encounter Goals Goal Patient Goal Type Associated Problems Recent Progress Patient-Stated? Author DH Home Medication Compliance and Understanding Patient Facing Action Plan No Chidi Tapia, [facility] Note: Aria hopes to keep relapses from recurring frequently documented as of this encounter Visit Diagnoses Not on filedocumented in this encounter Care Teams Rn Lvn Relationship Specialty Start Date End Date Nadine Mcduffie MD [address] [place] [address] PCP - General Family Medicine 03/27/17 documented as of this encounter
--- OUTSIDE RECORDS SUMMARY | 2024-05-22 19:41 | XMS_ITS | Encounter Summary ---
[place] [address] Care Team Providers Care Core Checker Name Role Phone Nadine Mcduffie MD Primary Care Provider [phone] Reason for Referral * High Dollar Medication (Routine) - Pending Review Specialty Diagnoses / Procedures Referred By Tonia argueta Referred To Contact Neurology Diagnoses Muscle spasm Procedures Onabotulinumtoxin A (BOTOX) Authorizations Request (IN CLINIC) TC ONABOTULINUMTOXINA, 1 UNIT, INJECTION PRO CHEMODENERVATION ONE EXTREMITY 1-4 MUSCLE(S) Brianna Collado MD [facility] [place] [address] Brianna Collado MD [facility] [address] Referral ID Status Reason Start Date Expiration Date Visits Requested Visits Authorized [id number] Pending Review Consult, Test & Treat 09/06/2022 09/07/2024 4 7 Encounter Details Date Type Department Care Team ([facility] st Contact Info) Description 09/06/2022 [place] [address] Brianna Collado MD [facility] [place] [address] Muscle spasm Social History Tobacco Use Types Packs/Day Years [...] as of this encounter Visit Diagnoses Diagnosis Muscle spasm Spasm of muscle documented in this encounter Care Teams Core Checker Relationship Specialty Start Date End Date Nadine Mcduffie MD [address] [place] [address] PCP - General Family Medicine 03/27/17 documented as of this encounter
--- OUTSIDE RECORDS SUMMARY | 2024-05-22 19:41 | XMS_ITS | Encounter Summary ---
Author Organization [facility] [address] Care Team Providers Care Head Of Quality Name Role Phone Nadine Mcduffie MD Primary Care Provider [phone] Encounter Details Date Type Department Care Team (Latest Contact Info) Description 09/08/2023 Travel Social History Tobacco Use Types Packs/Day [...] Action Plan No Chidi Tapia, [facility] Note: Aria hopes to keep relapses from recurring frequently documented as of this encounter Visit Diagnoses Not on filedocumented in this encounter Care Teams Head Of Quality Relationship Specialty Start Date End Date Nadine Mcduffie MD [address] [place] [address] PCP - General Family Medicine 03/27/17 documented as of this encounter
--- OUTSIDE RECORDS SUMMARY | 2024-05-22 19:41 | XMS_ITS | Encounter Summary ---
Author Organization [facility] [place] [address] Care Team Providers Care Federal Agent Name Role Phone Nadine Mcduffie MD Primary Care Provider [phone] Encounter Details Date Type Department Care Team (Latest Contact Info) Description 12/11/2023 Travel Social History Tobacco Use Types Packs/Day [...] on filedocumented in this encounter Care Teams Federal Agent Relationship Specialty Start Date End Date Nadine Mcduffie MD [address] [place] [address] PCP - General Family Medicine 03/27/17 documented as of this encounter
--- OUTSIDE RECORDS SUMMARY | 2024-05-22 19:41 | XMS_ITS | Encounter Summary ---
Author Organization [facility] [place] [address] Care Team Providers Care Furniture Upholsterer Apprentice Name Role Phone Nadine Mcduffie MD Primary Care Provider [phone] Reason for Visit * Reason Comments Medication Refill Encounter Details Date Type Department Care Team ([facility] Contact Info) Description 03/04/2022 Ref[place] [address] Mike Perez III, MD [facility] [place] [address] Social History Tobacco Use Types Packs/Day Years [...] Type Associated Problems Recent Progress Patient-Stated? Author [facility] Medication Compliance and Understanding Patient Facing Action Plan No Chidi Tapia, [facility] Note: Aria hopes to keep relapses from recurring frequently documented as of this encounter Visit Diagnoses Not on filedocumented in this encounter Care Teams Furniture Upholsterer Apprentice Relationship Specialty Start Date End Date Nadine Mcduffie MD [address] [place] [address] PCP - General Family Medicine 03/27/17 documented as of this encounter
--- OUTSIDE RECORDS SUMMARY | 2024-05-22 19:41 | XMS_ITS | Encounter Summary ---
[place] [address] Care Team Providers Care Horologist Apprentice Name Role Phone Nadine Mcduffie MD Primary Care Provider [phone] Reason for Visit * High Dollar Medication (Routine) - Pending Review Specialty Diagnoses / Procedures Referred By Tonia argueta Referred To Contact Neurology Diagnoses Muscle spasm Procedures Onabotulinumtoxin A (BOTOX) Authorizations Request (IN CLINIC) TC ONABOTULINUMTOXINA, 1 UNIT, INJECTION PRO CHEMODENERVATION ONE EXTREMITY 1-4 MUSCLE(S) Brianna Collado MD [facility] [place] [address] Brianna Collado MD [facility] [place] [address] Referral ID Status Reason Start Date Expiration Date Visits Requested Visits Authorized [id number] Pending Review Consult, Test & Treat 09/06/2022 09/07/2024 4 7 Encounter Details Date Type Department Care Team ([facility] Contact Info) Description 02/10/2023 3:30 PM EDT Office Visit Neurology at [address] [phone] Brianna Collado MD [facility] [place] [address] Muscle spasticity Social History Tobacco [...] Procedure Notes * Brianna Collado MD - 02/10/2023 3:30 PM EDTAssociated Order(s): CHEMODENERVATION W/ EMG GUIDANCE Chemodenervation [...] and noted this coming from the triceps. We are going to increase triceps and add biceps (counter muscle to stop tremor) and add low dose in traps for pain. Codes for chemodenervation visit: 70275, 82981 Exam: Procedure: A time out was performed [...] be in 3 months. Brianna Collado MD [facility] Neurology-Movement Disorders documented in this encounter Plan of Treatment Not on file documented as of this encounter Goals Goal Patient Goal Type Associated Problems Recent Progress Patient-Stated? Author DH Home Medication Compliance and Understanding Patient Facing Action Plan No Chidi Tapia, [facility] Note: Aria hopes to keep relapses from recurring frequently documented as of this encounter Procedures Procedure Name Priority Date/Time Associated Diagnosis Comments CHEMODENERVATION W/ EMG GUIDANCE Routine 02/10/2023 3:30 PM EDT documented in this encounter Results * CHEMODENERVATION W/ EMG GUIDANCE (02/10/2023 3:30 PM EDT) Narrative Brianna Collado MD - 02/10/2023 3:30 PM EDT Brianna Collado MD ? 02/10/2023 ??4:09 PM Chemodenervation Procedure Note Diagnosis: spasticity due [...] and noted this coming from the triceps. We are going to increase triceps and add biceps (counter muscle to stop tremor) and add low dose in traps for pain. Codes for chemodenervation visit: 37722, 55156 Exam: Procedure: A time out was performed [...] be in 3 months. Brianna Collado MD [facility] Neurology-Movement Disorders Brianna Collado MD NEUROLOGY ORDERABL ES documented in this encounter Visit Diagnoses Diagnosis Muscle spasticity Spasm of muscle documented in this encounter Administered Medications Inactive Administered Medications - up to 3 most recent administrations Medication Order MAR Action Action Date Dose Rate Site botulinum toxin type A (Botox) injection 100 Units 100 Units, Intramuscular, ONCE, 1 dose, On Mon02/10/23 at 1615, Routine Given 02/10/2023 4:06 PM EDT 200 Units documented in this encounter Care Teams Horologist Apprentice Relationship Specialty Start Date End Date Nadine Mcduffie MD [address] [place] [address] PCP - General Family Medicine 03/27/17 documented as of this encounter
--- OUTSIDE RECORDS SUMMARY | 2024-05-22 19:41 | XMS_ITS | Encounter Summary ---
Author Organization [facility] [place] [address] Care Team Providers Care Crusher Setter Name Role Phone Nadine Mcduffie MD Primary Care Provider [phone] Reason for Visit * Reason Onset Date Comments Appointment 06/02/2022 Encounter Details Date Type Department Care Team ([facility] Contact Info) Description 06/02/2022 Telephone [place] [address] Mike Perez III, MD [facility] [place] [address] Appointment Social History Tobacco Use Types Packs/Day [...] * Telephone Encounter - Sissy Faustin - 06/02/2022 9:04 AM EST Scheduling Instructions Provider: Chris Visit Type (paste FARIHA Instructions or manually enter): 2-3 month follow up telehealth If EMG Visit needed list diagnosis for the EMG to be used in Decision Tree: Appt Note: 2-3 month follow up. Multiple scleroses Additional Info Needed: documented in this encounter [...] on filedocumented in this encounter Care Teams Crusher Setter Relationship Specialty Start Date End Date Nadine Mcduffie MD [address] [place] [address] PCP - General Family Medicine 03/27/17 documented as of this encounter
--- OUTSIDE RECORDS SUMMARY | 2024-05-22 19:41 | XMS_ITS | Encounter Summary ---
[place] [address] Care Team Providers Care Supervisor Files Name Role Phone Nadine Mcduffie MD Primary Care Provider [phone] Reason for Visit * Reason Comments Prior Authorization Kesimpta 20MG/0.4ML SOAJ Encounter Details Date Type Department Care Team (Late st Contact Info) Description 03/31/2022 Specialty [place] [address] Jasmin Knight, [facility] Social History Tobacco Use Types Packs/Day Years [...] encounter Progress Notes * Jasmin Knight - 03/31/2022 8:35 AM EDT [facility], Medication Prior Authorization Submission Patient: Aria Waller Patient : 1980 Patient Address: [address] [place] [address] [address] [facility] [address] (home) Medication Name: KESIMPTA PEN 20 MG/0.4 ML SUBCUTANEOUS PEN INJECTOR Medication ID: [id number] Subscriber Insurance: [employer] Subscriber Insurance Comment: Fax: Physician: KWAME HIDALGO III Physician Comment: Sent Via: [facility] Bull: [id number] Ref/Case/PA#: Medication Strength Frequency Requested: Kesimpta 20MG/0.4ML SOAJ, Inject 0.4 mLs subcutaneously once a week for 3 doses. Inject on weeks 0, 1, and 2. Then skip a week and begin injecting once a month starting on week 4. Qty/Day Supply: 09/27 New Start: New to Therapy Diagnosis & ICD-10 Code: Multiple Sclerosis G35 Patient Notified: No Submission Notes: - PA INITIATED VIA [facility], BULL# [id number]. Jasmin Knight 03/31/22 8:38 AM * Jasmin Knight - 03/31/2022 8:35 AM EDT [facility], Prior Authorization Approval Medication Name: KESIMPTA PEN 20 MG/0.4 ML SUBCUTANEOUS PEN INJECTOR Medication ID: [id number] Approval Dates: 03/31/2022 to 03/31/2023 Insurance requirements/notes: - MUST FILL WITH [facility] Other Notes: None Case/Reference #: [id number] Approval notification Received via: [facility] Copay: Copay assistance: Copay Notes: Insurance mandated Pharmacy: [facility] Fillable at [facility]: No Pharmacy staff will be reaching out to the patient to inform them of their medication's approval by[employer] health insurance. If applicable, a pharmacist will speak with the patient to offer our specialty pharmacy services and to arrange delivery of their medication. Jasmin Knight 04/01/22 9:26 AM documented in this encounter Plan of [...] on filedocumented in this encounter Care Teams Supervisor Files Relationship Specialty Start Date End Date Nadine Mcduffie MD [address] [place] [address] PCP - General Family Medicine 03/27/17 documented as of this encounter
--- OUTSIDE RECORDS SUMMARY | 2024-05-22 19:41 | XMS_ITS | Encounter Summary ---
[place] [address] Care Team Providers Care Insurance Policy Clerk Name Role Phone Nadine cMduffie MD Primary Care Provider [phone] Reason for Visit * Reason Onset Date Comments Appointment 09/19/2022 Encounter Details Date Type Department Care Team ([facility] Contact Info) Description 09/19/2022 [place] [address] Brianna Collado MD [facility] [place] [address] Appointment Social History Tobacco Use Types Packs/Day [...] * Telephone Encounter - Judit Cruz - 09/19/2022 9:21 AM EDT Copied from [facility] #[id number]. Topic: Specialty Dept CRMs - Generic Call >> Sep 19, 2022 8:05 AM Cary Fontanez wrote: Specialist: Dr Brianna Collado Relationship (if other than patient-full name): Patient Reason for Call: Patient called to cancel botox appointment as her son is sick and can't come in today. Please call patient to reschedule documented in this encounter Plan of Treatment [...] on filedocumented in this encounter Care Teams Insurance Policy Clerk Relationship Specialty Start Date End Date Nadine Mcduffie MD [address] [place] [id number] PCP - General Family Medicine 03/27/17 documented as of this encounter
--- OUTSIDE RECORDS SUMMARY | 2024-05-22 19:41 | XMS_ITS | Encounter Summary ---
Author Organization [facility] Address [facility] [place] [address] Care Team Providers Care Rn Procedures Name Role Phone Nadine Mcduffie MD Primary Care Provider [phone] Reason for Referral * Physical Therapy (Routine) - Closed Specialty Diagnoses / Procedures Referred By Tonia argueta Referred To Contact Physical Therapy Diagnoses Multiple sclerosis Right sided weakness Mike Preez III, MD [facility] [place] [address] Referral ID Status Reason Start Date Expiration Date V isits Requested Visits Authorized [id number] Closed Evaluate and Treat 02/16/2023 08/15/2023 12 12 Encounter Details Date Type Department Care Team (Latest Contact Info) Description 02/16/2023 9:00 AM EDT TH Visit (TeleHealth) [place] [address] Mike Perez III, MD [facility] [place] [address] Multiple sclerosis (Primary Dx); Right sided weakness; Spasm of diaphragm Social History Tobacco Use Types Packs/Day Years [...] Notes * Mike Perez III, MD - 02/16/2023 9:00 AM EDT [facility] Telemedicine Encounter Note Dear Nadine Mcduffie MD, I had a telemedicine (video) encounter with Aria Waller today in follow-up for MS. Telephone Encounter TIme: 9:08 - 9:31 (23 minutes) DISEASE SUMMARY: Principal neurologic diagnosis: MS Diagnosis of MS: 2018 - onset possibly in 2014 CSF: 8 oligoclonal bands, elevated IgG index and IgG synthesis rate Disease course at onset: relapsing Current disease course: relapsing Relapses: 2015 - R thigh numbness (possible relapse) 10/2016 - R arm myoclonic jerks 04/2019 - R leg weakness 12/2021 - R leg weakness EDSS (03/2022): 2.5 MS Severity Score (EDSS and Disease Duration): 6.04 04/09/2018 10:45 AM 04/09/2018 10:47 AM 04/09/2018 10:52 AM 04/17/2019 10:08 AM 07/22/2019 8:45 AM 02/16/2023 9:04 AM [facility] Multiple Sclerosis Audit Sub Scores 1 (Low Risk) 3 (Low Risk) 2 (Low Risk) 2 (Low Risk) Pain Typical 6 (None-0, Worst-10) 6 (None-0, Worst-10) 4 (None-0, Worst-10) 6 (None-0, Worst-10) Pain Now 5 (None-0, Worst-10) 5 (None-0, Worst-10) 3 (None-0, Worst-10) 6 (None- 0, Worst-10) Pain at Rest 5 (None-0, Worst-10) 5 (None-0, Worst-10) 3 (None-0, Worst-10) 6 (None-0, Worst-10) Pain with Activity 5 (None-0, Worst-10) 5 (None-0, Worst-10) 5 (None-0, Worst- 10) 6 (None-0, Worst-10) MSIS-29 100 98 85 94 Treatment History Previous disease therapies: none Current disease therapies: Copaxone (start 2019); Imaging History Most recent MRI brain: 03/29/2022 (new L internal capsule lesion; prior 01/23/2020) Most recent MRI cervical spine: 09/20/2017 Most recent MRI thoracic spine: 09/20/2017 Telephone Discussion: Aria last had a telemedicine encounter with me on August 2022. At that time she did not report any new or worsening neurological symptoms concerning for MS relapse or disease progression. She had not yet switched to Kesimpta due to recent insurance change. Today, Aria does not report any new neurological symptoms. However she continues to have R leg/foot weakness that worsens with fatigue. She has had 2 falls inthe past few months due to R foot drop. She has more difficulty with going down stairs - sometimes develops R leg tremor when more fatigue. She has had recurrence of occasional R sided abdominal/diaphragm spasms. The spasms are not painfuland do not interfere with functional abilities. On rare occasions it can cause a brief vocalization. She has not yet started Kesimpta due to concern for PML infection. She continues on Copaxone. She continues to have issues with right upper extremity tremor for which she is on lamotrigine 100 mg 2 times daily. She has been receiving BOTOX with Dr. Collado with significant improvement in pain and and ROM. Current Medications: reviewed and updated in EMR REVIEW OF IMAGING STUDIES: No new imaging REVIEW OF LABORATORY STUDIES: No new labs Assessment: ICD-10-CM 1. Multiple sclerosis G35 Comprehensive metabolic panel (non-fasting) CBC (with Diff) 2. Right sided weakness R53.1 3. Spasm of diaphragm R06.6 Aria Waller is a 42 y.o. woman with relapsing multiple sclerosis with activity on Copaxone. Lastrelapse was in December 2021 with right leg weakness and MRI scan of the brain from March 2022 showing a new left internal capsule lesion. We have had continued discussion about switching to Kesimptasince March 2022 but delayed by vaccinations, insurance changes, and now concerns about PML infection risk. We reviewed that the risk of PML with Kesimpta is likely around 1:40,000; whereas her risk of disability progression related to MS is much higher. She is now in agreement with starting Kesimpta. I have sent her an online link to the Kesimpta enrollment form. In regards to right upper extremity tremor for which she is on lamotrigine 100 mg 2 times daily. She is noticing improvement in RUE spasticity with BOTOX (Dr. Collado). Plan: New Kesimpta enrollment form needs to be completed due to insurance change Repeat CBC diff and CMP (last done in 03/2022) - to be done locally Referral for PT for evaluation/treatment of R sided weakness - consideration of AFO/CIONIC neural sleeve (to be mailed to [facility] Continue on lamotrigine 100mg 2 times daily Follow-Up: 2 to 3 months in clinic Thank you for allowing us to participate in Aria's healthcare. If you have questions or concerns please do not hesitate to call our clinic at [phone]. Mike Perez III, MD [facility] Department of Neurology [facility] of [address] P F 9:35 AM 02/16/2023 documented in this encounter Plan of Treatment Scheduled Referrals Name Type Priority Associated Diagnoses Orde r Schedule Referral to Physical Therapy Outpatient Referral Routine Multiple sclerosis Right sided weakness Ordered: 02/16/2023 documented as of this encounter Goals Goal Patient Goal Type Associated Problems Recent Progress Patient-Stated? Author DH Home Medication Compliance and Understanding Patient Facing Action Plan No Chidi Tapia, [facility] Note: Aria hopes to keep relapses from recurring frequently documented as of this encounter Visit Diagnoses Diagnosis Multiple sclerosis- Primary Right sided weakness Muscle weakness (generalized) Spasm of diaphragm Hiccough documented in this encounter Care Teams Rn Procedures Relationship Specialty Start Date End Date Nadine Mcduffie MD [address] [place] [address] PCP - General Family Medicine 03/27/17 documented as of this encounter
--- OUTSIDE RECORDS SUMMARY | 2024-05-22 19:41 | XMS_ITS | Encounter Summary ---
Author Organization [facility] [place] [address] Care Team Providers Care Spindle Tester Name Role Phone Nadine Mcduffie MD Primary Care Provider [phone] Reason for Visit * Reason Onset Date Comments Appointment 02/09/2022 Encounter Details Date Type Department Care Team ([facility] Contact Info) Description 02/09/2022 [place] [address] Mike Perez III, MD [facility] [place] [address] Appointment Social History Tobacco Use Types Packs/Day [...] * Telephone Encounter - Sissy Faustin - 02/09/2022 5:02 PM EDT Patient needing a follow up with Dr. Perez. First available. documented in this encounter Plan of Treatment Not on file documented as of this encounter Goals Goal Patient Goal Type Associated Problems Recent Progress Patient-Stated? Author [facility] Medication Compliance and Understanding Patient Facing Action Plan No Chidi Tapia, [facility] Note: Aria hopes to keep relapses from recurring frequently documented as of this encounter Visit Diagnoses Not on filedocumented in this encounter Care Teams Spindle Tester Relationship Specialty Start Date End Date Nadine Mcduffie MD [address] [place] [address] PCP - General Family Medicine 03/27/17 documented as of this encounter
--- OUTSIDE RECORDS SUMMARY | 2024-05-22 19:41 | XMS_ITS | Encounter Summary ---
Author Organization [facility] [place] [address] Care Team Providers Care Onion Farmer Name Role Phone Nadine Mcduffie MD Primary Care Provider [phone] Reason for Visit * Reason Onset Date Comments TeleHealth 08/23/2022 Medication and a llergy review. Encounter Details Date Type Department Care Team (Late st Contact Info) Description 08/23/2022 Telephone [place] [address] Mike Perez III, MD [facility] [place] [address] TeleHealth (Medication and allergy review. ) Social History Tobacco Use Types Packs/Day Years [...] encounter Miscellaneous Notes * Telephone Encounter - Priscila Husain RN - 08/23/2022 1:38 PM EST Unable to reach this patient by phone [...] Action Plan No Chidi Tapia, [facility] Note: Aria hopes to keep relapses from recurring frequently documented as of this encounter Visit Diagnoses Not on filedocumented in this encounter Care Teams Onion Farmer Relationship Specialty Start Date End Date Nadine Mcduffie MD [address] [place] [address] PCP - General Family Medicine 03/27/17 documented as of this encounter
--- OUTSIDE RECORDS SUMMARY | 2024-05-22 19:41 | XMS_ITS | Encounter Summary ---
[place] [address] Care Team Providers Care Metal Crafts Teacher Name Role Phone Nadine Mcduffie MD Primary Care Provider [phone] Reason for Referral * Diagnostic Test (Routine) - Closed Specialty Diagnoses / Procedures Referred By Contac t Referred To Contact Radiology Diagnoses Multiple sclerosis Procedures MRI Brain wo Contrast Mike Perez III, MD [facility] [place] [address] [place] [address] Referral ID Status Reason Start Date Expiration Date V isits Requested Visits Authorized [id number] Closed Specialty Service Requested 10/27/2021 04/28/2023 1 0 Reason for Visit * Diagnostic Test (Routine) - Closed Specialty Diagnoses / Procedures Referred By Contac t Referred To Contact Radiology Diagnoses Multiple sclerosis Procedures MRI Brain wo Contrast Mike Perez III, MD [facility] [place] [address] [place] [address] Referral ID Status Reason Start Date Expiration Date V isits Requested Visits Authorized [id number] Closed Specialty Service Requested 10/27/2021 04/28/2023 1 0 Encounter Details Date Type Department Care Team (Latest Contact Info) Description 03/29/2022 9:00 AM EDT Hospital [place] [address] Mike Perez III, MD [facility] [place] [address] Multiple sclerosis Discharge Disposition: Home Social History [...] 11/10/2021 03/30/2022 documented as of this encounter Progress Notes * Aldo Botello, ARIEL - 03/29/2022 8:57 AM EDT MRI PRE-SEDATION ASSESSMENT NOTE NAME: Aria Waller AGE: 41 y.o. : [address] [place] [address] [place] [id number] Female [phone] (home) Telephone Information: Nadine Mcduffie MD No primary care provider on file. Allergies Allergen Reactions ??? Hydrocodone-Acetaminophen mood lability ??? Sulfa (Sulfonamide Antibiotics) edema Date/Time of call: March 24, 2022/8:41 AM/ PREVIOUS MRI SCAN? Yes HEIGHT: WEIGHT: SCHEDULED SCAN: MRI BRAIN WO CONTRAST [[id number]] SUBJECTIVE: Claustrophobic CAN YOU LAY FLAT? Yes AIRWAY/BREATHING ISSUES? No DO YOU HAVE ANY INVOLUNTARY MOVEMENTS? Yes DO YOU HAVE ANY PAIN? Yes DO YOU TAKE PAIN MED ON A DAILY BASIS? Baclofen ASSESSMENT: Pt is appropriate for po sedation. PLAN: Ativan 1 mg PO x 2 ordered (tme) You must have a commercial front load driver present when you check in. This patient has been informed that they require a commercial front load driver to drive them home after this procedure. In the absence of a commercial front load driver, IR will not be able to sedate for your scan. Pt verbalized understanding of these instructions during the pre-procedure education via phone. Yes X [place] of commercial front load driver: Phone number: PRIOR SCAN DATE/S ?SEDATION TYPE ?SUCCESSFUL 05/18/17 MRI Brain wo Ativan 1 mg PO x 2 Yes 06/14/17 MRI Brain w/wo Ativan 1 mg PO Yes 04/17/19 MRI Brain wwo Ativan 1 mg PO x??1 Yes ??03/29/22 MRI brain wo?? Ativan 1mg PO x ? Revised 11/28/17 documented in this encounter Plan of Treatment [...] who have questions please contact the health health care marketing specialist that requested your imaging first. ? Electronically signed by: MAT Pennington [facility] ([phone]), at 03/29/2022 11:26 AM Narrative 03/29/2022 11:26 [...] patients who have questions please contactthe health health care marketing specialist that requested your imaging first. Mike Perez III, MD IMG MRI ORDERABLE S documented in this encounter Visit Diagnoses Diagnosis Multiple sclerosis documented in this encounter Administered Medications Inactive Administered Medications - up to 3 most recent administrations Medication Order MAR Action Action Date Dose Rate Site LORazepam (Ativan) tablet 1 mg 1 mg, Oral, EVERY 30 MIN PRN, 2 doses, Starting on Mon03/29/22 at 0712, Until Mon03/30/22 at 0440, Anxiety, Minimal Sedation per Department of Radiology Adult Minimal Sedation Guidelines: Give 50 minutes prior to scan., Angio/IR (Day of Procedure), Routine Given 03/29/2022 9:19 AM EDT 1 mg documented in this encounter Care Teams Metal Crafts Teacher Relationship Specialty Start Date End Date Nadine Mcduffie MD [address] [place] [address] PCP - General Family Medicine 03/27/17 documented as of this encounter
--- OUTSIDE RECORDS SUMMARY | 2024-05-22 19:41 | XMS_ITS | Encounter Summary ---
Author Organization [facility] [place] [address] Care Team Providers Care Academic Associate Name Role Phone Nadine Mcduffie MD Primary Care Provider [phone] Reason for Visit * Reason Onset Date Comments Medication Refill 04/12/2022 Encounter Details Date Type Department Care Team ([facility] Contact Info) Description 04/12/2022 [place] [address] Mike Perez III, MD [facility] [place] [address] Social History Tobacco Use Types Packs/Day Years [...] Telephone Encounter - Yesenia Mars CMA - 04/12/2022 5:12 PM EDT Surescript request for : glatiramer Last rx: 03/03/22 Quantity: 36 mL Refills: 0 Last appt: 03/30/22 Next appt: 05/31/22 documented in this encounter Plan of Treatment Not on file documented as of this encounter Goals Goal Patient Goal Type Associated Problems Recent Progress Patient-Stated? Author DH Home Medication Compliance and Understanding Patient Facing Action Plan No Chidi Tapia, [facility] Note: Aria hopes to keep relapses from recurring frequently documented as of this encounter Visit Diagnoses Not on filedocumented in this encounter Care Teams Academic Associate Relationship Specialty Start Date End Date Nadine Mcduffie MD [address] [place] [address] PCP - General Family Medicine 03/27/17 documented as of this encounter
--- OUTSIDE RECORDS SUMMARY | 2024-05-22 19:41 | XMS_ITS | Clinical Summary ---
Author Organization [facility] Address [facility] [place] [address] Care Team Providers Care Histologist Technologist Name Role Phone Nadine Mcduffie MD Primary Care Provider [phone] Allergies Active Allergy Reactions Criticality Noted Date Comments Hydrocodone-Acetaminophen Medium mood lability Sulfa (Sulfonamide Antibiotics) Medium edema Medications Medication Sig Dispensed Refills Start Date End Date Status levothyroxine (SYNTHROID) 50 mcg Tablet Take 50 mcg by mouth daily. Active venlafaxine (EFFEXOR-XR) 150 mg Capsule, Sust. Release 24 hr Take 150 mg by mouth daily. Active penicillin v potassium (VEETID) 500 mg Tablet every 6 hours. 07/21/2019 Active baclofen (Lioresal) 10 mg Tablet Take 0.5 tablets by mouth 2 times daily as needed. 60 tablet 11 06/01/2020 Active lamoTRIgine (LaMICtal) 100 mg tabletIndications :Tremor PO. 1 tab in AM and 1.5 tabs at night for 1 week. Then increase to 1.5 tabs 2 times daily 90 tablet 3 01/10/2024 Active ofatumumab (Kesimpta Pen) 20 mg/0.4 mL Pen InjectorIndicatio ns:Multiple sclerosis Inject 0.4 mLs subcutaneously every 28 days. Maintenance dose: Inject 20 mg (0.4 mL) subcutaneously once a month starting week 4 after loading dose 0.4 mL 5 05/09/2024 Active ofatumumab (Kesimpta Pen) 20 mg/0.4 mL Pen InjectorIndicatio ns:Multiple sclerosis Inject 0.4 mLs subcutaneously See Admin Instructions. Loading dose: Inject 20 mg (0.4 mL) subcutaneously once at week 0, 1, and 2. Then start monthly injections at week 4. Start 4 weeks after Prevnar vaccine. 1.2 mL 05/09/2024 Active Active Problems Problem Noted Date Diagnosed Date Muscle spasticity 10/03/2022 Neck pain 01/11/2018 Multiple sclerosis 09/07/2017 Tobacco use disorder, moderate, in early remissi on 07/21/2017 Overview (07/21/2017): Quit early Jul 2017, using nicotine patch. 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 Obesity (BMI 30-39.9) 12/19/2013 Hypothyroidism 04/11/2011 Anxiety 02/16/2011 Resolved Problems Problem Noted Date Diagnosed Date Resolved Date History of UTI 02/15/2011 11/05/2012 Encounters Date Type Department Care Team Description 05/20/2024 Specialty [place] [address] Samantha Lackey CPHT 05/07/2024 [place] [address] Mike Perez III, MD Multiple sclerosis 03/12/2024 9:30 AM EDT TH Visit (TeleHealth) [place] [address] Mike Perez III, MD Multiple sclerosis; Tremor 03/07/2024 [place] [address] Mike Perez III, MD Reminder Appointment from Last 3 Months Immunizations Name Administration Dates Next Due Influenza PF, Split 07/02/2013,04/16/2012,2010 Tdap (Adacel, Boostrix) 04/11/2011 Tetanus Toxoid, Absorbed 10/29/1999 Family History Medical History Relation Comments Aneurysm Father Cerebrovascular Accident Father Heart Disease Father heart valve repl acement at age 40 High Cholesterol Mother Cancer Paternal Aunt 1 lung cancer Thyroid Disease Paternal Aunt 2 Cancer Paternal Grandfather lung cancer Relation Status Comments Father Alive Mother Alive Paternal Aunt 1 Paternal Aunt 2 Alive Paternal Grandfather Social History Tobacco Use Types Packs/Day Years Used Date Smoking Tobacco: Every Day Cigarettes Last attempted to quit: 06/2017 Smokeless Tobacco: Never Tobacco Cessation:Ready to Q uit: No; Counseling Given: No Alcohol Use Standard Drinks/Week Comments Yes 0.8 (1 standard drink = 0.6 oz p ure alcohol) rare Sex and Gender Information Value Date Recorded Sex Assigned at Not on file Gender Identity Not on file Sexual Orientation Not on file Last Filed Vital Signs Vital Sign Reading Time Taken Comments Blood Pressure 119/90 01/10/2024 10:26 AM EDT Pulse 117 01/10/2024 10:26 AM EDT Temperature 36.6 ??C (97.9 ??F) 07/27/2018 1 1:41 AM EST Respiratory Rate 18 07/27/2018 11:4 1 AM EST Oxygen Saturation 98% 03/30/2022 9:4 3 AM EDT Inhaled Oxygen Concentration - - Weight 105 kg (231 lb 6.4 oz) 10:26 AM EDT accurate Height 164.5 cm (5' 4.75) 01/10/2024 1 0:26 AM EDT pt reported Body Mass Index 38.8 01/10/2024 10:26 AM EDT Plan of Treatment Health Maintenance Due Date Last Done Comments Pneumococcal Vaccine: At-Ris k 5-64yrs (1 of 2 - PCV) 12/30/1985 HIV screen 12/30/1997 Lipid Screening 12/30/1997 Hepatitis B vaccine (0-59 yrs) (1) 12/30/1998 PAP Smear 04/11/2014 04/11/2011 Breast Cancer Share Decision Needed 2019 Breast Cancer screening 2019 Tetanus/Diphtheria/Pertussis Vaccines (2 - Td or Tdap) 04/11/2021 04/11/2011, 10/29/1999 Covid-19 Vaccine (1 - season) 2024 Influenza (Flu) vaccine (1 o f 1 - Influenza standard series) 03/03/2024 07/02/2013, 04/16/2012, 04/11/2011 Diabetes Screening (HgbA1C o r Glucose) 03/30/2025 03/30/2022, 05/31/2017, 03/27/2017 Hepatitis C Screening Completed 03/30/2022 Goals Goal Patient Goal Type Associated Problems Recent Progress Patient-Stated? Author DH Home Medication Compliance and Understanding Patient Facing Action Plan Chidi Mattson, [facility] Note: Jewel hopes to keep relapses from recurring frequently Medical Devices Implanted Type Area Installation Manager Device Identifier Shelf Expiration Date Model / Serial / Lot Paragard Other Description:1.5T OR 3T PER M [employer]. Procedures Procedure Name Priority Date/Time Associated Diagnosis Comments HC HEPATITIS C ANTIBODY Routine 03/30/2022 11:22 AM EDT Multiple sclerosis COMPREHENSIVE METABOLIC PANEL Routine 03/30/2022 11:22 AM EDT Multiple sclerosis DRIVERS' CASH CLERK CYTOLOGY FINAL REPORT Routine 04/11/2011 3:15 PM EDT from Last 3 Months or Most Recently Relevant to Health Maintenance Results * Hepatitis C Antibody (03/30/2022 11:22 AM EDT) Pathologist [facility] Hepatitis C Antibody Negative Negative [facility] Blood 03/30/2022 11:2 2 AM EDT 03/30/2022 11:27 AM EDT Narrative Resulting Agency Comment Spec In Lab Mike Perez III, MD CHEMISTRY ORDERAB LES [facility] [place] [address] * Comprehensive metabolic panel (non-fasting) (03/30/2022 11:22 AM EDT) Glucose 95 65 - 199 mg/dL [facility] Comment:Diabetes: >=200 mg/d L plus symptoms Blood Urea Nitrogen 10 8 - 18 mg/dL [facility] Creatinine 0.81 0.70 - 1.20 mg/dL [facility] Sodium 137 135 - 145 mmol/L [facility] Potassium 3.8 3.5 - 5.0 mmol/L [facility] Comment: Please note: ??Patients with WBC >100,000 may have falsely elevated Potassium levels. ??For accurate Potassium quantification in these patients send serum separator tube (gold top) for subsequent determinations. ??Contact the Clinical Chemistry Laboratory if there are any questions. Chloride 103 98 - 107 mmol/L [facility] Carbon Dioxide 25 22 - 31 mmol/L [facility] Anion Gap 9 5 - 15 mmol/L [facility] Calcium 9.0 8.5 - 10.5 mg/dL [facility] Protein, Total 7.2 6.1 - 8.0 g/dL [facility] Albumin 4.1 3.2 - 5.2 g/dL [facility] Aspartate Aminotransferase 14 0 - 30 unit/L [facility] Alanine Aminotransferase 16 0 - 30 unit/L [facility] Alkaline Phosphatase 81 35 - 105 unit/L [facility] Bilirubin, Total 0.2 0.2 - 1.3 mg/dL [facility] Est Glomerular Filtration Rate 93 >=60 mL/min/1. 73 m?? [facility] Comment: This patient's estimated GFR was [...] Mike Perez III, MD CHEMISTRY ORDERAB LES [facility] [place] [address] * DRIVERS' CASH CLERK CYTOLOGY FINAL REPORT (04/11/2011 3:15 PM EDT) Pathologist [facility] Ripsaw Operator Cytology Final Report ? [facility] ? Provider: ?? SARA MARTELL Pt. Name: ?? JEWEL GRACIA ? Acc #: ?[id number] ?Pt. ? Col Date: ?? 04/11/2011 ?/Sex: ?1980,(30 years),Female ? Rec Date: ?? 04/11/2011 ?LOC: ?[facility] ? CYTOPATHOLOGY: ??DRIVERS' CASH CLERK ? ---Adequacy--- ? Specimen submitted is satisfactory. ? Endocervical component present. ? ---Cytopathologic Diagnosis--- ? NORMAL ? Negative for Intraepithelial Lesion or Malignancy (NILM). ? 04/14/11 ?? Screened by: ??LMY ? 04/14/11 ?? Verified by: ??Rommel OKEEFE(ASCP), Nadine Rich - ? ---Clinical Information--- ? HPV Option: ? Reflex HPV ? Preparation: ?Liquid Based Pap ? Specimen Source: ?Vag/Cerv/Endo/LB P ? LMP: ?03/30/2011 ? Hormones?: ?No ? Hysterectomy?: ?No ?: ?No ?: ?No ? I.U.D.?: ?No ? Pelvic Radiation: ? No ? Prior DRIVERS' CASH CLERK Therapy?: ? No ? Hist Abnl Pap/Biopsy?: ??No ? Hist of HPV Vaccine?: ?? No ? Hist of Smoking?: ? Yes ? Hist of GLO exposure?: ??No ? Clinical Data, Significant Therapy and Clinical Impression: ?_ ? This Pap Test has been evaluated with the assistance of the ThinPrep Pap ? Test Imaging System. ? Note: ? The Pap test is a screening test for cervical cancer with an inherent ? false-negative rate dependent upon several variables. ??For further ? information please contact the [facility]. ? Reference: ??Amy RASMUSSEN. ??Design Cell Engineer of Pap Smear Results. ??In: ? Ayana BS, Dustin HH, ed. ??The Pap Smear. ??[place]: ??[place], 2002: ? 71-77. JOSE MANUEL IGLESIAS 04/11/2011 3:15 PM EDT Sara Martell APRN PATHOLOGY/CYTOLO GY ORDERABLES JOSE MANUEL IGLESIAS from Last 3 Months or Most Recently Relevant to Health Maintenance Care Teams Histologist Technologist Relationship Specialty Start Date End Date Nadine Mcduffie MD [address] [place] [address] PCP - General Family Medicine 03/27/17
--- OUTSIDE RECORDS SUMMARY | 2024-05-22 19:41 | XMS_ITS | Encounter Summary ---
Author Organization [facility] Address [facility] [place] [address] Care Team Providers Care Drug Abuse Technician Name Role Phone Nadine Mcduffie MD Primary Care Provider [phone] Encounter Details Date Type Department Care Team ([facility] Contact Info) Description 01/10/2024 10:30 AM EDT Office [place] [address] Mike Perez III, MD [facility] [place] [place] [address] Multiple sclerosis; Tremor Social History Tobacco Use [...] Pulse 117 01/10/2024 10:26 AM EDT Temperature - - Respiratory Rate - - Oxygen Saturation - - Inhaled Oxygen Concentration - - Weight 105 kg (231 lb 6.4 oz) 10:26 AM EDT accurate Height 164.5 cm (5' 4.75) 01/10/2024 1 0:26 AM EDT pt reported Body Mass Index 38.8 01/10/2024 10:26 AM EDT documented in this encounter Patient Instructions * Patient Instructions* Mike Perez III, MD - 01/10/2024 10:30 AM EDT We discussed the following medications: Tayla Elias (fingolimod) documented in this encounter Progress Notes * Mike Perez III, MD - 01/10/2024 10:30 AM EDT [facility] Follow-up Visit Dear Nadine Mcduffie MD, I saw Aria Waller in clinic today in follow-up for multiple sclerosis. All parties consented to the use of PAPA to document this visit Below is my progress note with impression and plan. Please do not hesitate to call with any questions. DISEASE SUMMARY: Principal neurologic diagnosis: MS Diagnosis of MS: 2018 - onset possibly in 2014 CSF: 8 oligoclonal bands, elevated IgG index and IgG synthesis rate Disease course at onset: relapsing Current disease course: relapsing Relapses: 2015 - R thigh numbness (possible relapse) 10/2016 - R arm myoclonic jerks 04/2019 - R leg weakness 12/2021 - R leg weakness 04/09/2018 10:45 AM 04/09/2018 10:47 AM 04/09/2018 10:52 AM 04/17/2019 10:08 AM 07/22/2019 8:45 AM 02/16/2023 9:04 AM [facility] Multiple Sclerosis Audit Sub Scores 1 [...] 85 94 Treatment History Previous disease therapies: Copaxone ([id number]) Current disease therapies: none Imaging History Most recent MRI brain: 01/06/2024 (1 new L temporal lesion) Last MRI with activity: 01/06/2024 (L temporal lesion) Most recent MRI cervical spine: 01/06/2024 (stable, prior 2017) Most recent MRI thoracic spine: 09/20/2017 Summary of Last Visit Aria was last seen via telemedicine in January 2023. At that time she did not report any new or worsening neurological symptoms concerning for MS relapase. She had not yet started Kesimpta due to concerns for PML. She continued on treatment with Copaxone. I again counseled her on my recommendation to starting more effective MS immunotherapy. History of Present Illness Aria is currently not on any medication due to insurance constraints. She reports experiencing forgetfulness, particularly with names, which occurring a few times a week. This has not interfered with function abilities in fact she has been recently promoted. Additionally, she has observed a weaker vision in her right eye, despite having worn glasses prior to her MS diagnosis. Her last ophthalmology consultation was approximately 1.5 years ago. She also reports significant leg weakness, a concern for her upcoming walking test. She denies experiencing numbness, but reports a new symptom of R leg twitching upon standing, whichgradually subsides upon ambulation. Her mobility is limited, with her ability to walk a mile slowly, albeit in hot weather. She experienced a few falls during the winter last year, which she attributes to ice. She reports urinary urgency, but denies any incontinence. She denies any urinary tract infections over the past year. She continues to take lamotrigine 100 mg 2 times daily for her RUE tremor and is under the care of Dr. Collado for Botox treatment. She has experienced weight gain since her last appointment with her primary care physician, which she attributes to increased travel and reduced physical activity. Current Medications: reviewed and updated in EMR Physical Exam Physical Examination She was alert and oriented to person, place, and time with normal language, attention and concentration, recent and remote memory, praxis, and intellectual function. Mood was euthymic. Affect was congruent. Visual jones were full to confrontation. Ocular ductions were full without nystagmus. Facial sensation was normal. Muscles of facial expression moved normally. Hearing was normal. There was no dysarthria. Motor tone was increased in the right upper and lower extremity. There was no pronator drift. Thereis frequent and near continuous irregular amplitude resting and action tremor in the right arm and intermittently in the right lower extremity. Upper extremities (R/L) Revenue Accounting Manager 5/5 Finger abduction 5/5 Finger extension 5/5 Wrist extension 5/5 Elbow flexion 5/5 Elbow extension 5/5 Shoulder abduction 5/5 Lower extremities (R/L) Hip flexion 5-/5 Knee extension 5/5 Knee flexion 5/5 Ankle plantarflexion 5/5 Ankle dorsiflexion 5/5 Deep tendon reflexes (R/L): Biceps (difficult to assess due to tremor)/2+ Triceps tremor/2+ Knees 2+>2+ Ankles 2+> 2 + Pin sensation was decreased in the right upper extremity. Vibratory sensation was 10 seconds at thetoes. Negative Romberg. Difficult to assess [id number]-gn-[id number] and the right upper extremity due to tremor. No dysmetria on [id number]-di-tylo on the left. Standard gait was slowed with steppage gait on the right. {She had moderate difficulties with tandem walk Timed 25-foot walk (sec): 4.8 (last 4.09 March 2022) assistive device: None. @[facility]@ REVIEW OF IMAGING STUDIES: I reviewed the following studies: MRI brain: without contrast Date: 01/06/2024- IMPRESSION 1 new small left temporal lobe white matter lesion, otherwise stable multiple sclerosis plaque burden. No evidence of active demyelination. MRI cervical spine: without contrast Date 01/06/2024- IMPRESSION Similar multiple sclerosis plaque burden. REVIEW OF LABORATORY STUDIES: No new labs Assessment & Plan 1. Multiple sclerosis. A new lesion was identified in the patient's MRI scan, compared to her previous scan from 2 years ago. This lesion, located in the left temporal region, does not significantly increase the risk of disability progression over the next 3 to 5 years. A discussion was held regarding the various medication options, including Kesimpta, Ocrevus, fingolimod/Gilenya, and Gilenya. The potential side effects of were thoroughly discussed. She was most interested in starting Kesimpta. Screening laboratory evaluation was ordered (last obtained in March 2022) including hepatitis B, hepatitis C, and tuberculosis evaluation. 2. For her right-sided tremor we discussed titrating lamotrigine from 100 mg 2 times daily to 100 mg / 150 mg x 1 week then increase to 150 mg 2 times daily. Follow-up A telemetry appointment is scheduled for the patient in a few months. ICD-10-CM 1. Multiple sclerosis G35 CBC (with Diff) Comprehensive metabolic panel (non-fasting) Hepatitis B Core Antibody, Total Hepatitis C Antibody Hepatitis B Surface Antigen Hepatitis B Surface Antibody QuantiFERON-TB Gold 2. Tremor R25.1 Lamotrigine Lvl lamoTRIgine (LaMICtal) 100 mg tablet Follow-Up: 2 months Thank you for allowing us to participate in [facility]. If you have questions or concerns please do not hesitate to call our clinic at [phone]. Mike Perez III, MD Microbiology Laboratory Manager [facility] Department of Neurology [address] P F 9:16 PM 01/18/2024 documented in this encounter Plan of Treatment Scheduled Orders Name Type Priority Associated Diagnoses Orde r Schedule CBC (with Diff) Lab Routine Multiple sclerosis Expected: 01/10/2024 (Approximate), Expires: 01/09/2025 Comprehensive metabolic panel (non-fasting) Lab Routine Multiple sclerosis Expected: 01/10/2024, Expires: 07/11/2024 Lamotrigine Lvl Lab Routine Tremor Expected: 01/10/2024, Expires: 07/11/2024 Hepatitis B Core Antibody, Total Lab Routine Multiple sclerosis Expected: 01/10/2024, Expires: 07/11/2024 Hepatitis C Antibody Lab Routine Multiple sclerosis Expected: 01/10/2024, Expires: 07/11/2024 Hepatitis B Surface Antigen Lab Routine Multiple sclerosis Expected: 01/10/2024, Expires: 07/11/2024 Hepatitis B Surface Antibody Lab Routine Multiple sclerosis Expected: 01/10/2024, Expires: 07/11/2024 QuantiFERON-TB Gold Lab Routine Multiple sclerosis Expected: 01/10/2024, Expires: 07/11/2024 documented as of this encounter Goals Goal Patient Goal Type Associated Problems Recent Progress Patient-Stated? Author DH Home Medication Compliance and Understanding Patient Facing Action Plan No Chidi Tapia, [facility] Note: Aria hopes to keep relapses from recurring frequently documented as of this encounter Visit Diagnoses Diagnosis Multiple sclerosis Tremor Abnormal involuntary movements documented in this encounter Care Teams Drug Abuse Technician Relationship Specialty Start Date End Date Nadine Mcduffie MD [address] [place] [id number] PCP - General Family Medicine 03/27/17 documented as of this encounter
--- OUTSIDE RECORDS SUMMARY | 2024-05-22 19:41 | XMS_ITS | Encounter Summary ---
[place] [address] Care Team Providers Care Fellmongering Machine Operator Name Role Phone Nadine Mcduffie MD Primary Care Provider Reason for Visit * Reason Onset Date Comments Letter/Form 09/02/2022 Jen start f orm Encounter Details Date Type Department Care Team (Late st Contact Info) Description 09/02/2022 Telephone [place] [address] Mike Perez III, MD [facility] [place] [address] Letter/Form (Kesimpta start form) Social History Tobacco Use Types Packs/Day Years [...] Telephone Encounter - Greta Neely RN - 09/02/2022 3:53 PM EST Hanssimpta start form placed in outgoing mail to home address on file at request of Dr. Perez. documented in this encounter Plan of Treatment Not on file documented as of this encounter Goals Goal Patient Goal Type Associated Problems Recent Progress Patient-Stated? Author DH Home Medication Compliance and Understanding Patient Facing Action Plan No Chidi Tapia, [facility] Note: Aria hopes to keep relapses from recurring frequently documented as of this encounter Visit Diagnoses Not on filedocumented in this encounter Care Teams Fellmongering Machine Operator Relationship Specialty Start Date End Date Nadine Mcduffie MD [address] [place] [phone] PCP - General Family Medicine 03/27/17 documented as of this encounter
--- OUTSIDE RECORDS SUMMARY | 2024-05-22 19:42 | XMS_ITS | Encounter Summary ---
[place] [address] Care Team Providers Care Robotic Toy Inventor Name Role Phone Nadine Mcduffie MD Primary Care Provider [phone] Reason for Visit * Consultation (Routine) - Closed Specialty Diagnoses / Procedures Referred By Tonia argueta Referred To Contact Psychiatry Diagnoses Multiple Sclrosis Anxiety; depression StressKiara smith APRN [address] [place] [address] Ang Pineda, PhD Referral ID Status Reason Start Date Expiration Date V isits Requested Visits Authorized [id number] Closed Consult, Test & Treat [facility] 10/29/2017 10/29/2018 1 1 Encounter Details Date Type Department Care Team (Late st Contact Info) Description 03/01/2018 1:00 PM EDT Office Visit Psychiatry [place] [address] Ang Pineda, PhD Adjustment disorder with mixed anxiety and depressed mood Social History Tobacco Use Types Packs/Day Years Used Date Smoking Tobacco: Former Cigarettes Q uit: 06/2017 Smokeless Tobacco: Never Alcohol Use Standard Drinks/Week Comments Yes 0.8 (1 standard drink = 0.6 oz p ure alcohol) rare Sex and Gender Information Value Date Recorded Sex Assigned at Not on file Gender Identity Not on file Sexual Orientation Not on file documented as of this encounter Progress Notes * Ang Pineda, PhD - 03/01/2018 1:00 PM EDT DIAGNOSTIC INTERVIEW CPT Code 77412 Location: Outpatient Clinic Time Spent: 50 minutes Referral Source: Nadine Mcduffie MD History of Presenting Illness/Status of Chronic Illnesses: Aria Figueroa is a 37 y.o. female whowas referred for treatment of depression and anxiety. Mrs. Figueroa was diagnosed with Multiple Sclerosis in August of 2017. She reported that she began noticing numbness in her right hand over a yearago. She stated this progressed and later testing confirmed the diagnosis of MS. Per chart review, she is listed as having relapsing-remitting type of MS. She reported having limited mobility in her right arm and when she does try to use it, her arm will twitch and shake. She stated that she still tries to use her right arm as much as she can and will occasionally drop or spill things, which leadher to feel down and extremely frustrated with herself. She stated that her symptoms with her arm are completely uncontrollable, which adds to her frustration. She endorsed depressed mood and a loss of sense of self following her MS diagnosis. She described herself as a workaholic and is concerned about how her diagnosis will impact this part of herself. She reported that she is constantly tired. She stated that she is trying to be more regimented in her sleep by sticking to consistent bed and wake times to help improve the quality of her sleep. She denied having a loss of interest in hobbies or activities but has not had the time to do as much outside of work as she would like. She stated that she has been more focused on trying to enjoying the little things about her day, like organizing her work and going outside with her dog. She stated thatshe has little time to spend with friends with work and an hour commute taking up most of her days.What free time she has she spends with her family. She stated that her job is mostly sedentary and that she does not do as much as she would like physically. Mrs. Figueroa reported having a prior history of panic attacks. She stated that this is not a current concern of hers. She reported that she does worry about work and how MS is and will impact her job performance. She reported that she also experiences some anxiety when she now goes out in public because of fears that people will stare at her, be able to notice that something is wrong, or tuna purse seiner her for her arm or walking slower than she used to. She stated that she lives with her , step-children, and her parents. She is the primary source of income for the family and worries about carrying the burden for their finances. This worry has increased following the diagnosis of MS. Additional Past Psychiatric history and treatment: Mrs. Figueroa reported that she attended counseling in college and again briefly in her late 20's for anxiety and panic attacks. She denied a history of SI/HI and no psychiatric hospitalizations were noted. Developmental History: Mrs. Figueroa was born and raised in [place]. She and her family moved to [place] while she was in high school. No academic or developmental problems were noted. Additional Social History: Mrs. Figueroa graduated from college. She has been for a year. She lives with her , two step-children and her parents. 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 She reported having limited social contact with others outside of her immediate family. EXAMINATION: General Appearance/Behavior : Mrs. Figueroa was well dressed and well groomed. She was polite and cooperative throughout session. Cooperative: Fully. Appearance: Neat. Normal. Hygiene: Good. Eye Contact: WNL. PSYCHIATRIC SYSTEM: (select areas completed) Speech: Rate: WNL. Volume: WNL. Quality: WNL. Mood: Depressed. Affect: Mood congruent Associations: Intact. Judgement: Good. Thought Process: Linear Logical Abnormal/Psychotic Thoughts: Homicidality (+ or -) Ideation - Suicidality (+ or -) Ideation - Psychosis (+ or -) Psychosis - Cognitive Function/Mental Status Exam: Orientation: person, place, time and situation Attention/Concentration: Alert Memory : WNL Language : WNL Fund of Knowledge : WNL Patient-reported Psychiatry Initial scores and responses: VR12 VR12 Patient Reported Responses 03/01/2018 Health in general Fair Moderate activity Yes, limited a little Climb several flights Yes, limited a little Accomplished less Yes, most of the time Limited in work Yes, a little of the time Accomplished less-emotional problems Yes, a little of the time Did work less carefully Yes, a little of the time Pain impact A little bit [place] calm Some of the time Lot of energy A little of the time [place] downhearted A little of the time Social Impact A little of the time VR12 - Physical Component Summary 43.43 VR12 - Mental Component Summary 46.59 AUDIT AUDIT Patient Reported Responses 03/01/2018 Drinking frequency Monthly or less Drinks per day 1 to 2 drinks 4+ drinks on one occasion Never PHQ9 MYD-H PHQ-9 RESPONSES 03/01/2018 Little interest or pleasure Several days Down, depressed, hopeless Not at all Phq9 Impairment Somewhat difficult GAD7 GINO-7 Patient Reported Responses 03/01/2018 Nervous, anxious (Patient) Several days Unable to stop worrying (Patient) Several days Worrying about different things (Patient) Several days Trouble relaxing (Patient) More than half the days Restless (Patient) Not at all Easily annoyed, irritable (Patient) Several days Afraid something awful will happen (Patient) Not at all Difficulty (Patient) Not difficult at all GINO-7 Score (Patient) 6 (Mild Anxiety) PTSD: PTSD Patient Reported Responses 03/01/2018 Nightmares / intrusive thoughts No Avoided remembering No On guard / alert No Numb / detached No PTSD Score 0 Anxiety Disorders Service Measures: Anxiety Disorders Measures 03/01/2018 PDSS Total Score 4 BFNE-II Total Score 37 (Clinically significant social anxiety) PSWQ Total Score 57 ASSESSMENT: Aria Figueroa is a 37 y.o. female with a provisional diagnosis of an Adjustment Disorder with mixed anxiety and depressed mood. She was diagnosed with MS in August of this year. She reported that she began experiencing depressed mood following the diagnosis. She stated that she is nowworried about her future and her job because of the MS. She has had difficulty adjusting to the changes in the functioning of her right arm, which contributes to her feeling upset and down on herself. She has been in therapy before and reported having positive experiences with it. She stated havingan interest in learning skills to better deal with the distress she experiences related to her MS sy mptoms. She is motivated and appears to be an appropriate candidate for cognitive behavioral therapy. PLAN: Provide feedback and discuss treatment options Patient Instruction/Education Provided: Verbal Patient understands the plan? Yes * Fausto Krishna, PhD - 03/01/2018 1:00 PM EDT I have reviewed this note and I agree with the assessment, plan, and treatment as documented by . The assessment and plan were formulated in discussion with me and I agree with them as documented. The patient's presenting concerns appear predominantly associated with her MS diagnosis and as such are most effectively treated and supervised through the Behavioral Medicine Service. Dr. Amandeep Kelsey will provide subsequent supervision. Fausto Krishna, Ph.D. documented in this encounter Plan of Treatment Not on file documented as of this encounter Visit Diagnoses Diagnosis Adjustment disorder with mixed anxiety and depressed mood documented in this encounter Care Teams Robotic Toy Inventor Relationship Specialty Start Date End Date Nadine Mcduffie MD [address] [place] [address] PCP - General Family Medicine 03/27/17 documented as of this encounter
--- OUTSIDE RECORDS SUMMARY | 2024-05-22 19:42 | XMS_ITS | Encounter Summary ---
[place] [address] Care Team Providers Care Phone Screener Name Role Phone Nadine Mcduffie MD Primary Care Provider [phone] Encounter Details Date Type Department Care Team (Latest Contact Info) Description 03/14/2018 12:02 PM EDT Hospital [place] [address] Discharge Disposition: Home Social History Tobacco Use [...] Sig Dispensed Refills Start Date End Date levothyroxine (SYNTHROID) 50 mcg Tablet Take 50 mcg by mouth daily. tiZANidine (ZANAFLEX) 2 mg Tablet Take 1 tablet by mouth every 6 hours as needed (muscle pain). 30 tablet 12/27/2017 03/29/2018 COPAXONE 40 mg/mL Syringe Inject 40 mg subcutaneously three times a week. Brand name copaxone necessary 36 Syringe 1 12/06/2017 05/11/2018 baclofen (LIORESAL) 10 mg Tablet Take 0.5 tablets by mouth 2 times daily as needed. 60 tablet 3 09/25/2017 03/29/2018 lamoTRIgine (LAMICTAL) 25 mg Tablet Increase by 50mg each week to goal of 150mg BID. Patient has titration schedule 360 tablet 12 06/27/2017 06/20/2019 venlafaxine (EFFEXOR-XR) 150 mg Capsule, Sust. Release 24 hrIndications:Anxie ty Take 1 capsule by mouth daily. Add 75mg to total 225mg daily - may substitute 3x75mg, 150+75mg, or 225mg tablet daily 90 capsule 3 05/11/2015 07/27/2018 chlorhexidine (HIBICLENS) 4 % LiquidIndications:F olliculitis Wash affected areas once weekly as needed. 120 mL 1 11/26/2014 01/23/2020 documented as of this encounter Progress Notes * Celsa Harding RN - 03/09/2018 9:05 AM EDT MRI PRE-SEDATION ASSESSMENT NOTE NAME: Aria Figueroa AGE: 37 y.o. : 1980 [address] [facility] [address] Female [phone] (home) Telephone Information: Nadine Mcduffie MD No primary care provider on file. Allergies Allergen Reactions ??? Hydrocodone-Acetaminophen mood lability ??? Sulfa (Sulfonamide Antibiotics) edema ??? Penicillins Rash Date/Time of call: March 09, 2018/9:05 AM/ PREVIOUS MRI SCAN? Yes, PO sedation. HEIGHT: 5'5 WEIGHT: 235 lbs SCHEDULED SCAN: No admission procedures for hospital encounter. SUBJECTIVE: I am very claustrophobic. CAN YOU LAY FLAT? Yes. AIRWAY ISSUES? No. DO YOU HAVE ANY INVOLUNTARY MOVEMENTS? (explain) Arms occassionally. DO YOU HAVE ANY PAIN? Mild pain. DO YOU TAKE PAIN MED ON A DAILY BASIS? PRN Zanaflex. ASSESSMENT: Pt appropriate for PO sedation. PLAN: PO Ativan 1-2 mg per protocol ( XXX ) You must have a bung driver present when you check in. This patient has been informed that they require a bung driver to drive them home after this procedure. In the absence of a bung driver, IR will not be able to sedate for your scan. Pt verbalized understanding of these instructions during the pre-procedure education via phone. Yes: MMP Valentine of bung driver: or Dad Phone number: [phone] PRIOR SCAN DATE/S ?SEDATION TYPE ?SUCCESSFUL 05/18/17 MRI Brain wo Ativan 1 mg PO x 2 Yes 06/14/17 MRI Brain w/wo Ativan 1 mg PO Yes 09/20/2017 MRI T and C spine wwo Contrast? Ativan 1 mg PO x1 Yes MRI Brain w/wo Ativan 1 mg PO x 1 Yes Revised 11/28/17 documented in this encounter Plan of Treatment Not on file documented as of this encounter Visit Diagnoses Not on filedocumented in this encounter Administered Medications Inactive Administered Medications - up to 3 most recent administrations Medication Order MAR Action Action Date Dose Rate Site LORazepam (ATIVAN) tablet 1-2 mg 1-2 mg, Oral, ONCE PRN, 2 doses, Starting on 03/14/18 at 0757, Until Andressa 03/15/18 at 0438, Anxiety, Angio/IR (Day of Procedure), Routine Given 03/14/2018 1:07 PM EDT 1 mg documented in this encounter Care Teams Phone Screener Relationship Specialty Start Date End Date Nadine Mcduffie MD [address] [place] [address] PCP - General Family Medicine 03/27/17 documented as of this encounter
--- OUTSIDE RECORDS SUMMARY | 2024-05-22 19:42 | XMS_ITS | Encounter Summary ---
Author Organization [facility] [place] [address] Care Team Providers Care Fishing Line Winding Machine Operator Name Role Phone Nadine Mcduffie MD Primary Care Provider [phone] Reason for Visit * Reason Onset Date Comments Prior Authorization 05/07/2018 COPAXONE 40 MG (BRAND) Encounter Details Date Type Department Care Team (Late st Contact Info) Description 05/07/2018 [place] [address] Mike Perez III, MD [facility] [place] [address] Prior Authorization (COPAXONE 40 MG (BRAND) ) Social History Tobacco Use Types Packs/Day [...] encounter Miscellaneous Notes * Telephone Encounter - Piedad Marc - 05/15/2018 9:55 AM EST Images from the original note were not included. * Telephone Encounter - Piedad Marc - 05/08/2018 11:42 AM EST PA FOR COPAXONE 40MG (BRAND) STARTED VIA PHONE WITH LUC FROM [employer]. SENT FOR URGENT REVIEW PT IS OUT OF MEDICATION. CALL REFERENCE #: [id number]. * Telephone Encounter - Uyen Escamilla - 05/07/2018 3:17 PM EST Clinical Bioinformatics Assistant message Caller: Aria If not Pt / Relation to pt: Call back number: [phone] Best time to reach caller if there are questions with medication refill request: anytime Name of Med: COPAXONE Strength of Pills:40mg Dosing Directions: inject 40mg subcutaneously three times a week 30 or 90 Day: 90 Pharmacy: [facility] Last Appointment:04/09/18 Next Appointment:08/06/18 Is Patient out of Medication?:YES documented in this encounter Plan of Treatment Not on file documented as of this encounter Goals Goal Patient Goal Type Associated Problems Recent Progress Patient-Stated? Author DH Home Medication Compliance and Understanding Patient Facing Action Plan No Chidi Tapia, [facility] Note: Aria hopes to keep relapses from recurring frequently documented as of this encounter Visit Diagnoses Not on filedocumented in this encounter Care Teams Fishing Line Winding Machine Operator Relationship Specialty Start Date End Date Nadine Mcduffie MD [address] [place] [address] PCP - General Family Medicine 03/27/17 documented as of this encounter
--- OUTSIDE RECORDS SUMMARY | 2024-05-22 19:42 | XMS_ITS | Encounter Summary ---
Author Organization [facility] [place] [address] Care Team Providers Care Supervisor Feed House Name Role Phone Nadine Mcduffie MD Primary Care Provider [phone] Encounter Details Date Type Department Care Team ([facility] Contact Info) Description 01/12/2018 External [place] [address] Jaleel Robledo MD [facility] [place] [address] Social History Tobacco Use Types Packs/Day Years [...] Procedure Name Priority Date/Time Associated Diagnosis Comments EMG SCAN Routine 01/11/2018 documented in this encounter Results * Scan Doc: EMG (01/11/2018) Jaleel Robledo MD MEDIA MGR SCAN EXT O RDR/RSLT documented in this encounter Visit Diagnoses Not on filedocumented in this encounter Care Teams Supervisor Feed House Relationship Specialty Start Date End Date Nadine Mcduffie MD [address] [place] [address] PCP - General Family Medicine 03/27/17 documented as of this encounter
--- OUTSIDE RECORDS SUMMARY | 2024-05-22 19:42 | XMS_ITS | Encounter Summary ---
[place] [address] Care Team Providers Care Completions Manager Name Role Phone Nadine Mcduffie MD Primary Care Provider [phone] Reason for Visit * Reason Comments Medication Management Patient Education Encounter Details Date Type Department Care Team ([facility] Contact Info) Description 05/14/2018 Specialty [place] [address] Chidi Tapia RPH Social History Tobacco Use Types Packs/Day [...] of this encounter Progress Notes * Chidi Tapia RPH - 05/14/2018 4:07 PM EST Specialty Pharmacy Consultation; Chidi Tapia RPH Comprehensive Medication Management (CMM) Aria Figueroa Diagnosis: multiple sclerosis Therapy Start Date: 10/19/17 (started prior to filling [facility]) Contact in person or via telephone: telephone Ms. Aria Figueroa is a 37 y.o. (1980) female who was contacted in regard to specialty medication. Spoke with patient regarding glatiramer . A review of the medication therapy was performed. The medication was filled as scheduled, and all medication related questions and concerns were addressed. The specialty pharmacy staff will follow up with the patient 5-7 days prior to next refill. Is the patient willing to proceed with the Clinical Assessment? Yes Summary and Recommendations: Aria was already familiar with the use of Copaxone (we dispensed the generic) and declined formal consultation / drug information. However we were able to verify her drug allergies were accurate andreconciled her active medication. Aria rates her quality of life at this time as a 8 or 9 on a scale of 1-10, and her goal in using glatiramer is to keep relapes from recurring frequently. We verified that her refill will be transferred to [facility] in accordance with benefits restrictions. Clinic follow-up needed: yes - Aria will have regular follow up with clinic Allergies and Drug intolerance: Allergies Allergen Reactions ??? Hydrocodone-Acetaminophen mood lability ??? Sulfa (Sulfonamide Antibiotics) edema ??? Penicillins Rash Special Dietary or Hydration Requirements: no There is no height or weight on file to calculate BMI. Medication Reconciliation Discrepancies (compared to [facility] med list) - Clarified Effexor XR as 150mg qd at this time Medication Adherence Demonstrates understanding of importance of adherence: yes Informant: patient Confirmed plan for next specialty medication refill: pick-up at pharmacy Medication List: Current Outpatient Medications Medication Sig Note Dispense Refill ??? glatiramer (COPAXONE) 40 mg/mL Syringe Inject 40 mg subcutaneously three times a week. May dispense generic 12 Syringe 0 ??? baclofen (LIORESAL) 10 mg Tablet Take 0.5 tablets by mouth 2 times daily as needed. 60 tablet 11 ??? levothyroxine (SYNTHROID) 50 mcg Tablet Take 50 mcg by mouth daily. ??? lamoTRIgine (LAMICTAL) 25 mg Tablet Increase by 50mg each week to goal of 150mg BID. Patient has titration schedule (Patient taking differently: Take 150 mg by mouth 2 times daily. Increase by 50mg each week to goal of 150mg BID. Patient has titration schedule) 360 tablet 12 ??? venlafaxine (EFFEXOR-XR) 150 mg Capsule, Sust. Release 24 hr Take 1 capsule by mouth daily. [id number] to total 225mg daily - may substitute 3x75mg, 150+75mg, or 225mg tablet daily 05/14/2018: Current dose 150mg XR once daily 90 capsule 3 ??? chlorhexidine (HIBICLENS) 4 % Liquid Wash affected areas once weekly as needed. 120 mL 1 No current facility-administered medications for this visit. Most Recent Vitals: Ht Readings from Last 1 Encounters: 04/09/18 165.1 cm (5' 5) Wt Readings from Last 3 Encounters: 04/09/18 111.1 kg (245 lb) 03/29/18 110.7 kg (244 lb) 01/11/18 110 kg (242 lb 9.6 oz) Temp Readings from Last 3 Encounters: 07/18/17 36.9 ??C (98.4 ??F) (Oral) 05/05/17 36.4 ??C (97.6 ??F) (Temporal) 03/27/17 36.6 ??C (97.9 ??F) (Oral) BP Readings from Last 3 Encounters: 04/09/18 134/68 03/29/18 125/67 01/11/18 119/72 Pulse Readings from Last 3 Encounters: 04/09/18 80 03/29/18 79 01/11/18 72 Pertinent Lab values: Lab Results Component Value Date NA 139 05/31/2017 K 3.7 05/31/2017 CL 100 05/31/2017 CO2 25 05/31/2017 BUN 11 05/31/2017 CREATININE 0.82 05/31/2017 GLUCOSE 114 05/31/2017 CALCIUM 8.8 05/31/2017 Lab Results Component Value Date ALT 28 05/31/2017 AST 18 05/31/2017 ALKPHOS 69 05/31/2017 BILITOT 0.3 05/31/2017 ALBUMIN 3.9 05/31/2017 PROT 7.4 05/31/2017 Lab Results Component Value Date WBC 12.5 (H) 05/31/2017 HGB 14.5 05/31/2017 HCT 42.8 05/31/2017 MCV 86.8 05/31/2017 PLATELET 273 05/31/2017 No results found for: HA1C Immunization History Administered Date(s) Administered ??? Influenza PF, Split 04/11/2011, 04/16/2012, 07/02/2013 ??? Tdap Vaccine 04/11/2011 ??? Tetanus Toxoid Vaccine, Absorbed 10/29/1999 Assessment and Recommendations: Title Type of Medication Management: targeted medication review, chronic disease management Referred By: provider Recipient: beneficiary Provider: plan sponsor pharmacist Method of Contact: by telephone Cognitive Ability: good Patient Counseling Counseled the patient on the following: doses and administration discussed, safe handling, storage, and disposal discussed, possible adverse effects and management discussed, possible drug and prescription drug interactions discussed, possible drug and OTC drug and food interactions discussed, lab monitoring and follow-up discussed, use of contraception discussed, therapeutic rationale discussed, cost of medications and cost implications discussed, adherence and missed doses discussed, pharmacy contact information discussed Drug Medication Management Summary Topics discussed: doses and administration discussed, safe handling, storage, and disposal discussed, possible adverse effects and management discussed, possible drug and prescription drug interactions discussed, possible drug and OTC drug and food interactions discussed, lab monitoring and follow-up discussed, use of contraception discussed, therapeutic rationale discussed, cost of medications and cost implications discussed, adherence and missed doses discussed, pharmacy contact information discussed Number of adverse drug events identified: 0 Time spent: 16-30 min Treatment Outcomes 05/15/2018 Disease progression: Stable Patient Overall Status: Stable Reviewed in detail with patient: Dose appropriateness based on recommended standard dosing Current medication list including OTC medications Medication and disease problems Allergies Comorbid conditions/ Problem List Past adverse events if any Special needs of the patient including physical and cognitive limitations Goals of therapy and management strategies Warnings, precautions, and contraindications Side effects Drug-drug and drug-food interactions Administration instructions including dose, frequency and method Handling, storage, and disposal of the medication Relevant lab data Patient verbalizes understanding and is able to read-back instructions on self-administration/injection, proper storage, drug stability, importance of adherence and management strategies, side effectavoidance and mitigation strategies, and interruptions in therapy: Yes Physical Assessment: Functional limitations identified: no Cognitive limitations identified: no Concern regarding orientation/memory: no Concern with reasoning/judgement: no Is patient a fall risk: no Other needed information: no Social Assessment: Does the patient have a primary health care coach? no Patient has emergency contact on file: Yes Does patient need referral to sexual assault social worker: No Does patient need referral to advocacy group: No Physical and Home Health Assessment: Is the patient able to store their medication as directed? Yes Is the patient in a safe home environment? Yes Do you have a support network? Yes Reviewed potential home safety hazards: Yes Economic Assessment: Patient is agreeable to medication copay: Yes Copay Amount: 0 Day Supply: 28 Date Needed: 05/15/18 Copay assistance required: no Therapy Assessment: Current Medication Dosing/Route/Frequency: Inject the contents of 1 syringe (40mg) subcutaneously 3times per week Appropriate Therapy: Yes Expected Outcome: Treat relapsing M.S. Patient's goals: Patient's specific desired goal: keep relapses from recurring frequently Measured by: frequency of relapses over time Time-frame to meet goal: ongoing Care Plan Reviewed and Approved by both Pharmacist and Patient: Yes Patient's Problems/Needs: while stable re: M.S., pt is sleeping poorly and experiencing fatigue (she believes it is related to her M.S.) and is a little late in refilling her glatiramer because of insurance restrictions which interfered with a timely refill. Monitoring requirements for prescribed medication: Outcome / effect, side effects, adherence Interventions (if applicable): Yes - verified that f/u rx will go to [facility] (verified w Lynne Neely) Educational information or adherence tools provided: Yes Additional equipment/supplies required: no Pharmacist follow-up needed: No Informed patient of specialty pharmacy services: Yes -Patient will be provided with welcome packet: Yes Date to be provided: 05/15/18 Delivery Method: at POS -Patient will be provided with Rights & Responsibiliites: Yes Date to be provided: 05/15/18 Delivery Method: at POS -Patient is aware a licensed pharmacist is available 24 hours a day, 7 days a week to discuss medication-related questions or concerns: Yes -Patient verbalizes understanding of the common side effect profile of their medication. The patient is able to call 911 or seek urgent care if signs/symptoms of allergy or harmful adverse reactions occur: Yes Patient understands no changes to current drug regimen were made at the appointment and that [facility] is[facility] recommendations (summary located at top of note) for provider review and follow up. Chidi Tapia RPH 05/15/18 8:16 AM documented in this encounter Plan of Treatment Not on file documented as of this encounter Goals Goal Patient Goal Type Associated Problems Recent Progress Patient-Stated? Author DH Home Medication Compliance and Understanding Patient Facing Action Plan No Chidi Tapia [facility] Note: Aria hopes to keep relapses from recurring frequently documented as of this encounter Visit Diagnoses Diagnosis Medication management Encounter for long-term (current) use of other medications documented in this encounter Care Teams Completions Manager Relationship Specialty Start Date End Date Nadine Mcduffie MD [address] [place] [address] PCP - General Family Medicine 03/27/17 documented as of this encounter
--- OUTSIDE RECORDS SUMMARY | 2024-05-22 19:42 | XMS_ITS | Encounter Summary ---
[place] [address] Care Team Providers Care Transportation Officer Name Role Phone Nadine Mcduffie MD Primary Care Provider Reason for Visit * Reason Comments Specialty Pharmacy Review Encounter Details Date Type Department Care Team ([facility] Contact Info) Description 09/01/2020 Specialty Pharm[place] [address] Cody Flynn RPH Social History Tobacco Use Types Packs/Day [...] as of this encounter Progress Notes * Cody Flynn RPH - 09/01/2020 8:37 AM EST The [facility] has completed a benefits investigation for Aria Waller to review their eligibility to fill at [facility]. Per patient's medication list they are prescribed glatiramer and the medication is not able to be filled at the [facility]. documented in this encounter Plan of Treatment Not on file documented as of this encounter Goals Goal Patient Goal Type Associated Problems Recent Progress Patient-Stated? Author DH Home Medication Compliance and Understanding Patient Facing Action Plan No Chidi Tapia, [facility] Note: Aria hopes to keep relapses from recurring frequently documented as of this encounter Visit Diagnoses Not on filedocumented in this encounter Care Teams Transportation Officer Relationship Specialty Start Date End Date Nadine Mcduffie MD [address] [place] [address] PCP - General Family Medicine 03/27/17 documented as of this encounter
--- OUTSIDE RECORDS SUMMARY | 2024-05-22 19:42 | XMS_ITS | Encounter Summary ---
Author Organization [facility] [place] [address] Care Team Providers Care Modeling Agency Manager Name Role Phone Nadine Mcduffie MD Primary Care Provider [phone] Reason for Visit * Reason Onset Date Comments Medication Refill 08/01/2019 Encounter Details Date Type Department Care Team ([facility] Contact Info) Description 08/01/2019 [place] [address] Mike Perez III, MD [facility] [place] [address] Social History Tobacco Use Types Packs/Day Years [...] Type Associated Problems Recent Progress Patient-Stated? Author [facility] Medication Compliance and Understanding Patient Facing Action Plan No Chidi Tapia, [facility] Note: Aria hopes to keep relapses from recurring frequently documented as of this encounter Visit Diagnoses Not on filedocumented in this encounter Care Teams Modeling Agency Manager Relationship Specialty Start Date End Date Nadine Mcduffie MD [address] [place] [address] PCP - General Family Medicine 03/27/17 documented as of this encounter
--- OUTSIDE RECORDS SUMMARY | 2024-05-22 19:42 | XMS_ITS | Encounter Summary ---
[place] [address] Care Team Providers Care Hhas Name Role Phone Nadine Mcduffie MD Primary Care Provider [phone] Reason for Visit * Diagnostic Test (Routine) - Specialty Diagnoses / Procedures Referred By Tonia argueta Referred To Contact Radiology Diagnoses Multiple sclerosis Procedures MRI Brain wwo Contrast (Generic) Mike Perez III, MD [facility] [place] [address] [place] [address] Referral ID Status Reason Start Date Expiration Date Visits Requested Visits Authorized [id number] Specialty Service Requested 04/17/2019 04/17/2019 1 1 Encounter Details Date Type Department Care Team (Latest Contact Info) Description 04/17/2019 7:46 AM EDT - 04/17/2019 11:59 PM EDT Hospital [place] [address] Mike Perez III, MD [facility] [place] [address] Discharge Disposition: Home Social History [...] Sig Dispensed Refills Start Date End Date venlafaxine (EFFEXOR-XR) 150 mg Capsule, Sust. Release 24 hr Take 150 mg by mouth daily. levothyroxine (SYNTHROID) 50 mcg Tablet Take 50 mcg by mouth daily. glatiramer (COPAXONE) 40 mg/mL Syringe Inject 40 mg subcutaneously three times a week. May dispense generic PATIENT NEEDS TO CALL OFFICE TO BE SEEN FOR FOLLOW UP 36 Syringe 12/10/2018 08/01/2019 baclofen (LIORESAL) 10 mg Tablet Take 0.5 tablets by mouth 2 times daily as needed. 60 tablet 11 03/29/2018 06/01/2020 lamoTRIgine (LAMICTAL) 25 mg Tablet Increase by 50mg each week to goal of 150mg BID. Patient has titration schedule 360 tablet 12 06/27/2017 06/20/2019 chlorhexidine (HIBICLENS) 4 % LiquidIndications:F olliculitis Wash affected areas once weekly as needed. 120 mL 1 11/26/2014 01/23/2020 documented as of this encounter Plan of [...] Priority Date/Time Associated Diagnosis Comments MRI BRAIN WWO CONTRAST (GENERIC) Routine 04/17/2019 9:26 AM EDT Multiple sclerosis documented in this encounter Visit Diagnoses Not on filedocumented in this encounter Administered Medications Inactive Administered Medications - up to 3 most recent administrations Medication Order MAR Action Action Date Dose Rate Site gadoterate meglumine (DOTAREM) 0.5 mmol/mL (376.9 mg/mL) injection 0-100 mL 0-100 mL, Intravenous, ONCE PRN, 1 dose, Starting on Mon04/17/19 at 0924, Until Mon04/17/19 at 0924, Per Protocol, Radiology Contrast, Routine Given 04/17/2019 9:24 AM EDT 20 mLs documented in this encounter Care Teams Hhas Relationship Specialty Start Date End Date Nadine Mcduffie MD [address] [place] [address] PCP - General Family Medicine 03/27/17 documented as of this encounter
--- OUTSIDE RECORDS SUMMARY | 2024-05-22 19:42 | XMS_ITS | Encounter Summary ---
Author [facility] [place] [address] Care Team Providers Care Political Worker Name Role Phone Nadine Mcduffie MD Primary Care Provider Reason for Visit * Reason Onset Date Comments Other 05/01/2018 PA request for c opaxone Encounter Details Date Type Department Care Team ([facility] Contact Info) Description 05/01/2018 Tele[place] [address] Mike Perez III, MD [facility] [place] [address] Other (PA request for copaxone) Social History Tobacco Use Types Packs/Day Years [...] Telephone Encounter - Greta Neely RN - 05/01/2018 4:15 PM EDT We received request for copaxone PA from [employer]. This was done with authorization 12/06/17-12/06/18. I have faxed this PA confirmation to [employer] on 05/01/18 at 4:16 pm to fax number [phone]. documented in this encounter Plan of Treatment Not on file documented as of this encounter Visit Diagnoses Not on filedocumented in this encounter Care Teams Political Worker Relationship Specialty Start Date End Date Nadine Mcduffie MD [address] [place] [address] PCP - General Family Medicine 03/27/17 documented as of this encounter
--- OUTSIDE RECORDS SUMMARY | 2024-05-22 19:42 | XMS_ITS | Encounter Summary ---
Author Organization Formerly [facility] Address [facility] [place] [address] Care Team Providers Care Gas Roller Operator Name Role Phone Nadine Mcduffie MD Primary Care Provider [phone] Encounter Details Date Type Department Care Team ([facility] Contact Info) Description 01/23/2020 2:00 PM EDT Office [place] [address] Mike Perez III, MD [facility] [place] [address] Neuropathic pain Social History Tobacco Use Types Packs/Day Years [...] Sign Reading Time Taken Comments Blood Pressure 106/90 01/23/2020 1:23 PM EDT Pulse 100 01/23/2020 1:23 PM EDT Temperature - - Respiratory Rate - - Oxygen Saturation 98% 01/23/2020 1:23 PM EDT Inhaled Oxygen Concentration - - Weight 98.9 kg (218 lb) 01/23/2020 1:23 PM EDT Height 165.1 cm (5' 5) 01/23/2020 1:23 PM EDT Body Mass Index 36.28 01/23/2020 1:23 PM EDT documented in this encounter Patient Instructions * Patient Instructions* Mike Perez III, MD - 01/23/2020 2:00 PM EDT Start Lyrica - Ok to try just 50mg daily - but Ok to try 50mg 2 times daily to help with R shouldertightness. Follow-up in about 6 months. Mike Perez III, MD documented in this encounter Progress Notes * Mike Perez III, MD - 01/23/2020 2:00 PM EDT [facility] Follow-Up Visit Dear Nadine Mcduffie MD, I saw Aria Waller in clinic today in follow-up for multiple sclerosis. She was unaccompanied at today's visit. Below is my progress note with impression and plan. Please do not hesitate to call with any questions. Appointment time: 2:00 - 2:15 (15 minutes) DISEASE SUMMARY: Principal neurologic diagnosis: MS Diagnosis of MS: 2018 - onset possibly in 2014 CSF: 8 oligoclonal bands, elevated IgG index and IgG synthesis rate Disease course at onset: relapsing Current disease course: relapsing Relapses: 2015 - R thigh numbness (possible relapse) 10/2016 - R arm myoclonic jerks 04/2019 - R leg weakness EDSS: 2.5 MS Severity Score (EDSS and Disease Duration): 6.04 Pertinent findings to emphasize are: myD-H Multiple Sclerosis 09/07/2017 09/21/2017 01/04/2018 04/09/2018 04/17/2019 07/22/2019 Audit Sub Scores 1 (Low Risk) 2 (Low Risk) 1 (Low Risk) 1 (Low Risk) 3 (Low Risk) 2 (Low Risk) Pain Typical 6 5 7 6 6 4 Pain Now 3 4 6 5 5 3 Pain at Rest 4 3 6 5 5 3 Pain with Activity 4 4 6 5 5 5 MSIS-29 95 84 103 100 98 85 Treatment History Previous disease therapies: n/a Current disease therapies: Copaxone (10/2017) Imaging History Most recent MRI brain: 01/23/2020 Most recent MRI cervical spine: 09/21/2017 Most recent MRI thoracic spine: 09/21/2017 Interval History: I last saw Aria Waller in July 2019. At that time she did not report any new neurological symptoms concerning for a MS relapse. She was experiencing increase fatigue with associated difficulty with concentration and attention. Due to her known active disease we discussed switching from Copaxone to Ocrevus, but she never followed through on getting screening blood work. She continued on Copaxone. Today, Aria reports no new neurological symptoms concerning for a relapse. She has noticed significant improvement in fatigue and mood with exercise (very active in working in [employer]) and weight loss (25lbs since 04/2019). MS Symptom Review: Cognition: no reported issues [...] stopping on 2 occasions Tremor: on lamotrigine 150mg BID Ambulation: unrestricted Falls: 0 in the past 6 months Lifestyle: Employment: Works for a [employer] company Exercise: Not regularly exercising, on her feet more regularly at work Diet: has lost 25lbs in the past 9 months - staying active at work and calore restriction Current Medications: reviewed and updated in EMR Review of Systems A ROS was obtained, reviewed with the patient. Pertinent positives and negatives were included in the HPI. Physical Examination Most Recent Vitals: 01/23/20 1323 BP: 106/90 Pulse: 100 SpO2: 98% PainSc: 4 Hair, skin, nails, and joints were normal. Neck was supple without Lhermitte???s phenomenon. ?? He was alert and oriented to person, place, [...] No myoclonic jerk. ?? Upper extremities (R/L) Nick Setter 5/5 Finger abduction 5/5 Finger extension 5/5 Wrist extension 5/5 Elbow flexion 5/5 Elbow extension 5/5 Shoulder abduction 5/5 ?? Lower extremities (R/L) Hip flexion 5-/5 Knee extension 5/5 Knee flexion 5-/5 Ankle plantarflexion 5/5 Ankle dorsiflexion 5/5 Deep tendon reflexes (R/L): Biceps (difficult to assess due to tremor)/2+ Triceps tremor/2+ Knees 2+>2+ Ankles 2+> 2 + Temperature sensation was decreased in the RUE. Vibratory sensation was slightly reduced at the toes to about 10-12 seconds. Negative Romberg. ?? No dysmetria with [id number] testing bilaterally. Finger tapping was rapid and accurate bilaterally. ?? Standard gait was normal. She was able to tandem walk. Timed 25 foot walk: 4.5 s (last 4.7 om 04/2019) REVIEW OF IMAGING STUDIES: MRI brain wwo contrast 01/23/2020 - stable, no new lesions Assessment: ICD-10-CM 1. Neuropathic pain M79.2 pregabalin (Lyrica) 50 mg Capsule Aria Waller is a 39 y.o. woman with relapsing MS with activity on Copaxone. She had been off of Copaxone in the summer of 2018 due to insurance changes and had a new relapse of R leg weakness withL corpus callosum lesion in 04/2019. She continued on Copaxone due to future plans to become . We had discussed switching to Ocrevus at her last appointment, but she has continued on Copaxone. Repeat MRI scan obtained today does not show any new lesions. She will continue on Copaxone currently due to on-going plans to become and the COVID-19 pandemic. Plan: 1. Continue Copaxone 2. Continue lamotrigine 150 mg twice daily fur RUE tremor - followed by Dr. Collado 3. Start Lyrica 50mg 2 times daily for neuropathic pain and muscle spasms 4. Recommend regular exercise Follow-up: 6 months Thank you for allowing us to participate in [facility]. If you have questions or concerns please do not hesitate to call our clinic at [phone]. Mike Perez III, MD Plastic Boat Buffer of Neurology [facility] More than 50% of this 15-minute [id number] encounter was spent in counseling on diagnosis, prognosis, symptom management, and medications. 3:44 PM 01/23/2020 documented in this encounter Plan of Treatment Not on file documented as of this encounter Goals Goal Patient Goal Type Associated Problems Recent Progress Patient-Stated? Author DH Home Medication Compliance and Understanding Patient Facing Action Plan No Chidi Tapia, [facility] Note: Aria hopes to keep relapses from recurring frequently documented as of this encounter Visit Diagnoses Diagnosis Neuropathic pain Neuralgia, neuritis, and radiculitis, unspecified documented in this encounter Care Teams Gas Roller Operator Relationship Specialty Start Date End Date Nadine Mcduffie MD [address] [place] [address] PCP - General Family Medicine 03/27/17 documented as of this encounter
--- OUTSIDE RECORDS SUMMARY | 2024-05-22 19:42 | XMS_ITS | Encounter Summary ---
[place] [address] Care Team Providers Care School Community Relations Coordinator Name Role Phone Nadine Mcduffie MD Primary Care Provider [phone] Reason for Referral * Diagnostic Test (Routine) - Closed Specialty Diagnoses / Procedures Referred By Tonia argueta Referred To Contact Radiology Diagnoses Multiple sclerosis Procedures MRI Brain wo Contrast Mike Perez III, MD [facility] [place] [address] [place] [address] Referral ID Status Reason Start Date Expiration Date V isits Requested Visits Authorized [id number] Closed Specialty Service Requested 10/27/2021 04/28/2023 1 0 Encounter Details Date Type Department Care Team (Late st Contact Info) Description 10/27/2021 Telephone [place] [address] Mike Perez III, MD [facility] [place] [address] Social History Tobacco Use Types Packs/Day Years [...] Telephone Encounter - Greta Neely RN - 10/27/2021 3:13 PM EDT I phoned pt back and reviewed reply from Dr. Perez. Pt aware to call receptionist secretary next week if she doesn't hear from us. New rx generated for provider review and signature. Plan: as above and pt agrees with plan and verbalizes understanding. * Telephone Encounter - Mike Perez III, MD - 10/27/2021 2:19 PM EDT I am OK to refill Copaxone. We should schedule FUV with MRI scan of the brain on the same day. MRI scan of the brain ordered. FUV does not sound urgent. Mike Perez III, MD * Telephone Encounter - Greta Neely RN - 10/27/2021 2:01 PM EDT Last visit 01/23/20 Next visit 01/06/22 I phoned pt to discuss medication refill as her last visit was 01/2020 and last refill we did for glatiramer was 09/25/20 for 30 day supply with 5 refills. I asked pt who has been filling her prescription for her and how long has she been out. Pt states nobody has been filling it for her and she doesn't know how long she has been out. She states she was without insurance for a while but has insurance now and is trying to get back on track. When I asked her how she was doing/feeling she said okay. Plan: I will forward to Dr. Perez for review and recommendation. Pt aware I will phone back once input available. Pt agrees with plan and verbalizes understanding. * Telephone Encounter - Kim Carlos - 10/27/2021 1:36 PM EDT Call Center / [place] Message Prescription Refill Request Clinical Product Sales Engineer message Provider patient sees in Clinic: Mike Perez Caller and relationship (if other than patient-full name): self Call back Number: [phone] Ok to leave a message: y Any issues needing to be addressed prior to medication refill? (ex: dose increase, not at pharmacy): n Name of Med: Glatimer Acetate injection Strength of Pills: injection Dosing Directions: injection 3 times a week How Patient is Currently Taking Medication: injection 3 times a week 30 or 90 Day Supply: 30 Pharmacy: [facility] Last Appointment: 01/23/2020 Next Appointment: (IF CALL IS FROM PATIENT/FAMILY AND THERE IS NO FOLLOW UP SCHEDULED REVIEW CHART TO SEE WHEN APPOINTMENT IS NEEDED AND SCHEDULE BEFORE SENDING MESSAGE) 01/06/2022 Is Patient out of Medication?: y documented in this encounter Plan of Treatment Not on file documented as of this encounter Goals Goal Patient Goal Type Associated Problems Recent Progress Patient-Stated? Author DH Home Medication Compliance and Understanding Patient Facing Action Plan No Chidi Tapia, [facility] Note: Aria hopes to keep relapses from recurring frequently documented as of this encounter Results * MRI Brain wo [...] who have questions please contact the health child care cook that requested your imaging first. ? Narrative 03/29/2022 11:26 AM EDT EXAMINATION: MRI [...] patients who have questions please contactthe health child care cook that requested your imaging first. Electronically signed by: Shanon Parsons [facility]([phone]), at 03/29/2022 11:26 AM Mike Perez III, MD IMG MRI ORDERABLE S documented in this encounter Visit Diagnoses Diagnosis Multiple sclerosis Multiple sclerosis documented in this encounter Care Teams School Community Relations Coordinator Relationship Specialty Start Date End Date Nadine Mcduffie MD [address] [place] [id number] PCP - General Family Medicine 03/27/17 documented as of this encounter
--- OUTSIDE RECORDS SUMMARY | 2024-05-22 19:42 | XMS_ITS | Encounter Summary ---
Author Organization [facility] [place] [address] Care Team Providers Care Quarter Folder Name Role Phone Nadine Mcduffie MD Primary Care Provider [phone] Reason for Referral * Diagnostic Test (Routine) - Closed Specialty Diagnoses / Procedures Referred By Contac t Referred To Contact Radiology Diagnoses Multiple sclerosis Procedures MRI Brain wwo Contrast (Generic) Mike Perez III, MD [facility] [place] [address] [place] [address] Referral ID Status Reason Start Date Expiration Date V isits Requested Visits Authorized [id number] Closed Specialty Service Requested 07/22/2019 01/19/2021 1 1 Reason for Visit * Diagnostic Test (Routine) - Closed Specialty Diagnoses / Procedures Referred By Contac t Referred To Contact Radiology Diagnoses Multiple sclerosis Procedures MRI Brain wwo Contrast (Generic) Mike Perez III, MD [facility] [place] [address] [place] [address] Referral ID Status Reason Start Date Expiration Date V isits Requested Visits Authorized [id number] Closed Specialty Service Requested 07/22/2019 01/19/2021 1 1 Encounter Details Date Type Department Care Team (Latest Contact Info) Description 01/23/2020 10:32 AM EDT - 01/23/2020 11:59 PM EDT Hospital Encounter MRI at [facility] [place] [address] Mike Perez III, MD [facility] [place] [address] Multiple sclerosis Discharge Disposition: Home Social History [...] Sig Dispensed Refills Start Date End Date penicillin v potassium (VEETID) 500 mg Tablet every 6 hours. 07/21/2019 venlafaxine (EFFEXOR-XR) 150 mg Capsule, Sust. Release 24 hr Take 150 mg by mouth daily. levothyroxine (SYNTHROID) 50 mcg Tablet Take 50 mcg by mouth daily. pregabalin (Lyrica) 50 mg CapsuleIndications: Neuropathic pain Take 1 capsule by mouth 2 times daily for 30 days. 60 capsule 01/23/2020 02/22/2020 glatiramer 40 mg/mL Syringe Inject 40 mg subcutaneously three times a week. May dispense generic 12 Syringe 5 08/02/2019 09/24/2020 lamoTRIgine (LAMICTAL) 25 mg Tablet Take 6 tablets by mouth 2 times daily. 360 tablet 1 06/21/2019 05/29/2020 baclofen (LIORESAL) 10 mg Tablet Take 0.5 tablets by mouth 2 times daily as needed. 60 tablet 11 03/29/2018 06/01/2020 documented as of this encounter Plan of Treatment Not on file documented as of this encounter Goals Goal Patient Goal Type Associated Problems Recent Progress Patient-Stated? Author Home Medication Compliance and Understanding Patient Facing Action Plan No Chidi Tapia, [facility] Note: Aria hopes to keep relapses from recurring frequently documented as of this encounter Procedures Procedure Name Priority Date/Time Associated Diagnosis Comments MRI BRAIN WWO CONTRAST (GENERIC) Routine 01/23/2020 11:34 AM EDT Multiple sclerosis documented in this encounter Results * MRI Brain wwo Contrast (Generic) (01/23/2020 11:34 AM EDT) Anatomical Region Laterality Modality Head Magnetic Resonan ce Impressions 01/23/2020 12:22 PM EDT No evidence for active disease or new sites of demyelination. Thank you for letting us participate in the care of this patient. For questions regarding this report, please contact the number below. ? Narrative 01/23/2020 12:22 PM EDT EXAMINATION: MRI BRAIN WWO CONTRAST (GENERIC) CLINICAL HISTORY: Multiple sclerosis, monitor TECHNIQUE: MRI of the brain was performed before and after the intravenous administration of 21cc Dotarem. Multiple sclerosis protocol. COMPARISON: Brain MRI 04/17/2019. FINDINGS: Stability of the signal alteration and atrophy within the left perirolandic region. Stable bilateral T2 hyperintense periventricular foci. Stable signal alteration along the undersurface of the corpus callosum body with associated atrophy. The T2 hyperintense lesion within the splenium of the corpus callosum is not significantly changed. Stability of the abnormal signal within the left. The pelvis. No infratentorial lesions are identified. Ventricles are stable in size. No diffusion-weighted abnormalities. Procedure Note Samson Mendes MD - 01/23/2020 EXAMINATION: MRI BRAIN WWO CONTRAST (GENERIC) CLINICAL HISTORY: Multiple sclerosis, monitor TECHNIQUE: MRI of the brain was performed before and after the intravenousadministration of 21cc Dotarem. Multiple sclerosis protocol. COMPARISON: Brain MRI 04/17/2019. FINDINGS: Stability of the signal alteration and atrophy within the leftperirolandic region. Stable bilateral T2 hyperintense periventricular foci. Stablesignal alteration along the undersurface of the corpus callosum body withassociated atrophy. The T2 hyperintense lesion within the splenium of the corpuscallosum is not significantly changed. Stability of the abnormal signal within theleft. The pelvis. No infratentorial lesions are identified. Ventricles arestable in size. No diffusion-weighted abnormalities. IMPRESSION No evidence for active disease or new sites of demyelination. Thank you for letting us participate in the care of this patient. Forquestions regarding this report, please contact the number below. Mike Perez III, MD IMG MRI ORDERABLE S documented in this encounter Visit Diagnoses Diagnosis Multiple sclerosis documented in this encounter Administered Medications Inactive Administered Medications - up to 3 most recent administrations Medication Order MAR Action Action Date Dose Rate Site gadoterate meglumine (DOTAREM) 0.5 mmol/mL (376.9 mg/mL) injection 0.2 mL/kg/dose 0.2 mL/kg/dose, Intravenous, ONCE PRN, 1 dose, Starting on Andressa 01/23/20 at 1134, Until Andressa 01/23/20 at 1120, Per Protocol, Radiology Contrast, Routine Given 01/23/2020 11:20 AM EDT 21 mLs documented in this encounter Care Teams Quarter Folder Relationship Specialty Start Date End Date Nadine Mcduffie MD [address] [place] [address] PCP - General Family Medicine 03/27/17 documented as of this encounter
--- OUTSIDE RECORDS SUMMARY | 2024-05-22 19:42 | XMS_ITS | Encounter Summary ---
[place] [address] Care Team Providers Care Assessment Counselor Name Role Phone Nadine Mcduffie MD Primary Care Provider Reason for Referral * Diagnostic Test (Routine) - Closed Specialty Diagnoses / Procedures Referred By Tonia argueta Referred To Contact Radiology Diagnoses Multiple sclerosis Procedures MRI Brain wwo Contrast (Generic) Mike Perez III, MD [facility] [address] [place] [address] Referral ID Status Reason Start Date Expiration Date V isits Requested Visits Authorized [id number] Closed Specialty Service Requested 07/22/2019 01/19/2021 1 1 * Psychiatric (Routine) - Closed Specialty Diagnoses / Procedures Referred By Tonia argueta Referred To Contact Psychiatry Diagnoses Multiple sclerosis Procedures PRO NEUROPSYCHOLOGICAL TEST EVAL PHYS/QHP 1ST HOUR PRO NEUROPSYCHOLOGICAL TEST EVAL PHYS/QHP EA ADDL HR TC PSYCL/NRPSYCL CARDIOPULMONARY PHYSICAL THERAPIST 2+ TEST 1ST 30 MIN TC PSYCL/NRPSYCL CARDIOPULMONARY PHYSICAL THERAPIST 2+ TEST EA ADDL 30 MIN Mike Perez III, MD [facility] [address] Dania Toure, PhD [facility] [place] [address] Referral ID Status Reason Start Date Expiration Date V isits Requested Visits Authorized [id number] Closed Consult, Test & Treat 07/22/2019 07/21/2021 1 1 Encounter Details Date Type Department Care Team (Late st Contact Info) Description 07/22/2019 9:00 AM EST Office [place] [address] Mike Perez III, MD [facility] [place] [address] Multiple sclerosis Social History Tobacco Use Types [...] Sign Reading Time Taken Comments Blood Pressure 134/80 07/22/2019 8:38 AM EST Pulse 91 07/22/2019 8:38 AM EST Temperature - - Respiratory Rate - - Oxygen Saturation - - Inhaled Oxygen Concentration - - Weight 107.1 kg (236 lb 3.2 oz) 07/22/2019 8:38 AM EST Height 165.1 cm (5' 5) 07/22/2019 8:38 AM EST Body Mass Index 39.31 07/22/2019 8:38 AM EST documented in this encounter Patient Instructions * Patient Instructions* Mike Perez III, MD - 07/22/2019 9:00 AM EST Ocrevus is an infusion medication that has been used to treat multiple sclerosis (MS). It works by reducing the number of a certain type of B cells, type of white blood cell. This effect can last forup to 4 months and sometimes longer than 1 year. This results in a reduction of your immune system and may increase the risk of some infections and reactivation of hepatitis viruses. Before starting Ocrevusyou will need to get blood work for the following studies: Complete Blood Cell count Comprehensive Metabolic Panel Hepatitis B and C Panel Tuberculosis You will need to receive the pneumonia vaccine, called Prevnar, around 4 weeks before the first infusion. If you are starting treatment near the typical Flu season, we recommend getting the flu vaccine as well. In addition to increasing your risk for some infections, Rituximab can cause allergic or other infusion reactions including, hives/itching, fevers, other symptoms of allergic reaction including difficulty with breathing. We will pre- treat you with steroids and benadryl to reduce this risk. The typical schedule of infusions is as follows: Initial: 2 infusions by 2 weeks, then... 1 infusion around every 6 months thereafter. I typically see patients back in clinic about 1 month prior to their next infusion. I am referring you for formal neuropsychological testing. Mike Perez III, MD documented in this encounter Progress Notes * Mike Perez III, MD - 07/22/2019 9:00 AM EST [facility] Follow-Up Visit Dear Nadine Mcduffie MD, I saw Aria Waller in clinic today in follow-up for multiple sclerosis. She was unaccompanied at today's visit. Below is my progress note with impression and plan. Please do not hesitate to call with any questions. Appointment time: 8:45 - 8:20 (35 minutes) DISEASE SUMMARY: Principal neurologic diagnosis: MS Diagnosis of MS: 2018 - onset possibly in 2014 CSF: 8 oligoclonal bands, elevated IgG index and IgG synthesis rate Disease course at onset: relapsing Current disease course: relapsing Relapses: 2014 - R thigh numbness (possible relapse) 10/2016 [...] (10/2017) Imaging History Most recent MRI brain: 04/17/2019 Most recent MRI cervical spine: 09/21/2017 Most recent MRI thoracic spine: 09/21/2017 Interval History: I last saw Aria Waller in April 2019. At that time she did not report any new or worsening neurological symptoms. She had been off of Copaxone sine about January 2019 due to insurance. She had been tolerating Copaxone. She reported subacute onset of mild R leg weakness and incoordination in theSummer of 2018. Her examination was notable for mild R hip flexion and knee flexion weakness. MRI scan of her brain should 1 new lesion in the corpus callosum on the L which could have explained her symptoms. She continued on Copaxone primarily because of planning for future . Today, Aria reports no new neurological symptoms concerning for a relapse. She reports worsening difficulty with memory including, difficulty with Copaxone adherence; short-term memory without reminders (although just started a new job 5 months ago); at home she has difficulty remembering family schedules if told early in the day. Recently, she forgot to bring things thatwere important for her kids home. There has not been concerns about her work performance (she has had concerns). MS Symptom Review: Cognition: as above Vision: Radha eye - feels weaker (constant), has an eye appointment in August 2019 Fatigue: She wakes up feeling refreshed. Mood: OK, more irritable, about the same as 3 months ago; she denies feeling depressed; she denies lack of motivation or enjoyment Sleep: typically sleeps without any difficulty; she has been falling asleep frequently in the evening on the couch while watching television. Neuropathic symptoms: none Spasms/spasticity: Occasional spasms in her right arm and leg for which she occasionally takes baclofen 5 mg as needed (has not taken for a while) Tremor: on lamotrigine 75mg BID (occasional missed doses); worse with anxiety; Keppra was effectivebut had major mood side effects; Ambulation: occasional R leg dragging; unrestricted walking distance Falls: 0 in the past 6 months Bladder: had urgency, but this has improved Bowel: No issues Lifestyle: Employment: Works for a [employer] Exercise: Not regularly exercising, on her feet more regularly at work Diet:has lost 7lb in the past 3 months - reducing snacking in the evening and increasing water intake Current Medications: reviewed and updated in EMR Review of Systems A ROS was obtained, reviewed with the patient. Pertinent positives and negatives were included in the HPI. Physical Examination Most Recent Vitals: 07/22/19 0838 BP: 134/80 Pulse: 91 Hair, skin, nails, and joints were normal. Neck was supple without Lhermitte???s phenomenon. ?? He was alert and oriented to person, place, and time with normal language, attention and concentration, recent and remote memory, praxis, and intellectual function. Mood was euthymic. Affect was congruent. ?? Visual acuity was 20/15 OD, 20/15 OS. Visual jones were full to confrontation. Ocular ductions were full without nystagmus. Facial sensation was normal. Muscles of facial expression moved normally. Hearing was normal. Palatal movements were normal. Trapezius power and tongue movements were normal.There was no dysarthria. ?? Motor tone was normal. There was no pronator drift. Intermittent, small, irregular amplitude resting and action tremor in the R arm that improved with distraction. No myoclonic jerk. ?? Upper extremities (R/L) Fine Chemicals Operator 5/5 Finger abduction 5/5 Finger extension 5/5 [...] seconds. Negative Romberg. ?? No dysmetria with [id number] testing bilaterally. Finger tapping was rapid and accurate bilaterally. ?? Standard gait was normal. She was able to tandem walk. Timed 25 foot walk: 4.5 s (last 4.7 om 04/2019) REVIEW OF IMAGING STUDIES: no new imaging Assessment: ICD-10-CM 1. Multiple sclerosis G35 Aria Waller is a 38 y.o. woman with relapsing MS with activity on Copaxone. She had been off of Copaxone in the summer of 2018 due to insurance changes and had a new relapse of R leg weakness withL corpus callosum lesion in 04/2019. She continued on Copaxone due to future plans to become . Today, she is noting worsening adherence to Copaxone as well as some worsening of mild cognitive difficulties. Due to her relatively high lesion and disability burden related to MS I think that it would be reasonable to switch from Copaxone to Ocrevus. She is unlikely to be adherent to oral therapies (daily or twice daily dosing). Plus, she and her are considering a future . It is possible consider with some slight risks while on Ocrevus (would delay planning until 3 months after last infusion and hold infusions during until in the setting). Ocrelizumab is a monoclonal antibody targeting CD20 on immature B cells. The OPERA I and II trials showed significant reduction in relapses and new lesions on MRI I discussed the risks and safety concerns related to Ocrelizumab with the patient in detail including slight increased risk of infusion reactions (including anaphylasxis), upper respiratory infections, reactivation of hepatitis viruses, infusion related reactions including anaphylaxis with risk forrespiratory compromise, and possible though small risk of the brain infection called PML. The patient was provided further information on Ocrelizumab for review. Baseline screening laboratory evaluation: ?? CBC diff, CMP ?? Hepatitis B and C panel ?? Quantiferon ?? VZV IgG Immunizations: ?? Prevnar 13 1 month before first infusion, followed by Pneumovax 23 6 months later or 1 month before subsequent infusion ?? Influenza vaccine during flu season to be given around 1 month before first or subsequent infusions ?? She plans on getting both vaccinations with her PCP. Interim Laboratory Evaluation: ?? CBC diff, LFTs, CD19, IgG, IgA, IgM every 6 months (1 month prior to each subsequent infusion) Dosing: ?? 300mg x 2 by 2 weeks, then: ?? 600mg every 6 months Plan: 1. Continue Copaxone - stop prior to first Ocrelizumab infusion 2. Enrollment paperwork for Ocelizumab started 3. Laboratory evaluation as above 4. Influenza and Prevnar-13 vaccine with PCP 5. Referral to Dr. Toure, Neuropsychology, for worsening cognitive symptoms 6. Continue lamotrigine 75 mg twice daily 7. Continue baclofen 5 mg as needed for right upper extremity spasms 8. Recommend regular exercise 9. Repeat MRI scan brain wwo contrast in 6 months Follow-up: 6 months Thank you for allowing us to participate in Aria's healthcare. If you have questions or concerns please do not hesitate to call our clinic at [phone]. Mike Perez III, MD Index Clerk of Neurology [facility] More than 50% of this 35-minute [id number] encounter was spent in counseling on diagnosis, prognosis, symptom management, and medications. 9:05 AM 07/22/2019 documented in this encounter Plan of Treatment Scheduled Referrals Name Type Priority Associated Diagnoses Order Schedule Referral to Neuropsychology Outpatient Referral Routine Multiple sclerosis Ordered: 07/22/2019 documented as of this encounter Goals Goal Patient Goal Type Associated Problems Recent Progress Patient-Stated? Author DH Home Medication Compliance and Understanding Patient Facing Action Plan No Chidi Tapia, [facility] Note: Aria hopes to keep relapses from recurring frequently documented as of this encounter Results * MRI Brain wwo Contrast (Generic) (01/23/2020 11:34 AM EDT) Anatomical Region Laterality Modality Head Magnetic Resonan ce Impressions 01/23/2020 12:22 PM EDT No evidence for active disease or new sites of demyelination. Thank you for letting us participate in the care of this patient. For questions regarding this report, please contact the number below. ? Electronically signed by: MAT Durham [facility] ([phone]), at 01/23/2020 12:22 PM Narrative 01/23/2020 12:22 PM EDT EXAMINATION: MRI [...] this report, please contact the number below. Electronically signed by: MAT Durham [facility]([phone]), at 01/23/2020 12:22 PM Mike Perez III, MD IMG MRI ORDERABLE S documented in this encounter Visit Diagnoses Diagnosis Multiple sclerosis Multiple sclerosis documented in this encounter Care Teams Assessment Counselor Relationship Specialty Start Date End Date Nadine Mcduffie MD [address] [place] [address] PCP - General Family Medicine 03/27/17 documented as of this encounter
--- OUTSIDE RECORDS SUMMARY | 2024-05-22 19:42 | XMS_ITS | Encounter Summary ---
Author Organization [facility] [place] [address] Care Team Providers Care Executive Vice President And Chief Operating Officer Name Role Phone Nadine Mcduffie MD Primary Care Provider [phone] Reason for Visit * Reason Onset Date Comments Medication Refill 05/14/2018 Encounter Details Date Type Department Care Team ([facility] Contact Info) Description 05/14/2018 [place] [address] Mike Perez III, MD [facility] [place] [address] Social History Tobacco Use Types Packs/Day Years [...] on filedocumented in this encounter Care Teams Executive Vice President And Chief Operating Officer Relationship Specialty Start Date End Date Nadine Mcduffie MD [address] [place] [address] PCP - General Family Medicine 03/27/17 documented as of this encounter
--- OUTSIDE RECORDS SUMMARY | 2024-05-22 19:42 | XMS_ITS | Encounter Summary ---
Author [facility] [place] [address] Care Team Providers Care Center Medical Director Name Role Phone Nadine Mcduffie MD Primary Care Provider [phone] Reason for Visit * Reason Onset Date Comments Appointment 03/12/2021 Encounter Details Date Type Department Care Team ([facility] Contact Info) Description 03/12/2021 Telephone [place] [address] Brianna Collado MD [facility] [address] [place] [address] Appointment Social History Tobacco Use Types Packs/Day [...] * Telephone Encounter - Sissy Faustin - 03/31/2021 4:59 PM EDT Letter sent. * Telephone Encounter - Sissy Faustin - 03/12/2021 3:03 PM EDT Patient needing follow up with Dr. Collado. First available and put on cancellation list. Patient needing to continue getting medication from Dr. Collado. documented in this encounter Plan of Treatment [...] on filedocumented in this encounter Care Teams Center Medical Director Relationship Specialty Start Date End Date Nadine Mcduffie MD [address] [place] [address] PCP - General Family Medicine 03/27/17 documented as of this encounter
--- OUTSIDE RECORDS SUMMARY | 2024-05-22 19:42 | XMS_ITS | Encounter Summary ---
Author Organization [facility] [place] [address] Care Team Providers Care Sweeper Operator Highways Name Role Phone Nadine Mcduffie MD Primary Care Provider [phone] Reason for Visit * Reason Onset Date Comments Medication Refill 05/14/2018 Encounter Details Date Type Department Care Team (Late st Contact Info) Description 05/14/2018 Ref[place] [address] Mike Perez III, MD [facility] [place] [address] Social History Tobacco Use Types Packs/Day Years [...] on filedocumented in this encounter Care Teams Sweeper Operator Highways Relationship Specialty Start Date End Date Nadine Mcduffie MD [address] [place] [address] PCP - General Family Medicine 03/27/17 documented as of this encounter
--- OUTSIDE RECORDS SUMMARY | 2024-05-22 19:42 | XMS_ITS | Encounter Summary ---
Author Organization [facility] [place] [address] Care Team Providers Care Mortgage Loan Processor Name Role Phone Nadine Mcduffie MD Primary Care Provider [phone] Reason for Visit * Reason Onset Date Comments Medication Refill 09/23/2020 Medication Refill 09/24/2020 Encounter Details Date Type Department Care Team (Late st Contact Info) Description 09/23/2020 [place] [address] Mike Perez III, MD [facility] [place] [address] Social History Tobacco Use Types Packs/Day Years [...] Type Associated Problems Recent Progress Patient-Stated? Author [facility] Medication Compliance and Understanding Patient Facing Action Plan No Chidi Tapia, [facility] Note: Aria hopes to keep relapses from recurring frequently documented as of this encounter Visit Diagnoses Not on filedocumented in this encounter Care Teams Mortgage Loan Processor Relationship Specialty Start Date End Date Nadine Mcduffie MD [address] [place] [address] PCP - General Family Medicine 03/27/17 documented as of this encounter
--- OUTSIDE RECORDS SUMMARY | 2024-05-22 19:42 | XMS_ITS | Encounter Summary ---
[place] [address] Care Team Providers Care Hvac/R Instructor Name Role Phone Nadine Mcduffie MD Primary Care Provider [phone] Encounter Details Date Type Department Care Team ([facility] Contact Info) Description 05/14/2018 [place] [id number] Greta Helm RN Social History Tobacco Use [...] Miscellaneous Notes * Telephone Encounter - Greta Helm RN - 05/14/2018 1:45 PM EST Call from pt's pharmacy that PA for brand name Copaxone is denied. Pt's insurance changed, will need urgent PA if Dr Perez feels pt can not tolerate generic. If ok for Generic new rx can be sent electronically phone number to call is [phone] documented in this encounter Plan of Treatment Not on file documented as of this encounter Visit Diagnoses Not on filedocumented in this encounter Care Teams Hvac/R Instructor Relationship Specialty Start Date End Date Nadine Mcduffie MD [address] [place] [address] PCP - General Family Medicine 03/27/17 documented as of this encounter
--- OUTSIDE RECORDS SUMMARY | 2024-05-22 19:42 | XMS_ITS | Encounter Summary ---
[place] [address] Care Team Providers Care Ct Technician Name Role Phone Nadine Mcduffie MD Primary Care Provider [phone] Reason for Referral * Diagnostic Test (Routine) - Specialty Diagnoses / Procedures Referred By Tonia argueta Referred To Contact Radiology Diagnoses Multiple sclerosis Procedures MRI Brain wwo Contrast (Generic) Mike Perez III, MD [facility] [place] [address] [place] [address] Referral ID Status Reason Start Date Expiration Date Visits Requested Visits Authorized [id number] Specialty Service Requested 04/17/2019 04/17/2019 1 1 Reason for Visit * Reason Onset Date Comments Other 01/28/2019 Encounter Details Date Type Department Care Team ([facility] st Contact Info) Description 01/28/2019 [place] [address] Mike Perez III, MD [facility] [place] [address] Other Social History Tobacco Use Types Packs/Day [...] Telephone Encounter - Greta Neely RN - 02/20/2019 10:45 AM EDT Scheduled for 04/17. Thanks! Aria * Telephone Encounter - Anny Betancur - 01/28/2019 1:15 PM EDT Clinical Imagery Analyst Message Caller: Aria Call back Number: [phone] Reason for call: MRI and fuv Message/information for the nurse: The pt called stating that she is supposed to be having an MRI and fuv with Dr. Perez. I didn't see any orders for the MRI or a specified time frame as to when the pt is to be scheduled. She was last seen on 04/09/18. Disposition of Call ?? Routine Message sent to the Nurse documented in this encounter Plan of Treatment Not on file documented as of this encounter Goals Goal Patient Goal Type Associated Problems Recent Progress Patient-Stated? Author DH Home Medication Compliance and Understanding Patient Facing Action Plan No Chidi Tapia, [facility] Note: Aria hopes to keep relapses from recurring frequently documented as of this encounter Results * MRI Brain wwo Contrast (Generic) (04/17/2019 9:26 AM EDT) Anatomical Region Laterality Modality Head Magnetic Resonan ce Impressions 04/17/2019 10:20 AM EDT New T2 hyperintense lesions projecting in the splenium of the corpus callosum eccentric to the left and in the left medial posterior thalamus. No associated abnormal enhancement. Stable remaining lesions in the supratentorial brain characteristic of demyelinating disease. Thank you for letting us participate in the care of this patient. For questions regarding this report, please contact the number below. ? Narrative 04/17/2019 10:20 AM EDT EXAMINATION: MRI BRAIN WWO CONTRAST (GENERIC) CLINICAL HISTORY: MS, serial evaluation for interval new lesions TECHNIQUE: MRI of the brain was performed before and after the intravenous administration of 20cc Dotarem. COMPARISON: 03/14/2018 FINDINGS: No restricted diffusion. Skull base soft tissues and orbits are unremarkable. There is similar pattern of focal thinning of the corpus callosum the posterior body with T2 hyperintensity. Stable T2 hyperintensity projecting in the left periatrial white matter, right frontal white matter image 95 series 2, and left posterior periventricular white matter. There are stable T2 hyperintensities in the left posterior frontal lobe involving periventricular white matter, centrum semiovale and subcortical white matter with focal parenchymal loss best appreciated on axial images 113 through 131 of series 2. Marked thinning of the left precentral gyrus is identified similar to prior exam. There is a new T2 hyperintense lesion involving the splenium of the corpus callosum eccentric to the left best appreciated on axial images 88 through 96 of series 2. Subtle new T2 hyperintensity projecting the left medial thalamus posteriorly image 86 series 2. No associated abnormal enhancement identified.. Procedure Note Sherwin Pillai MD - 04/17/2019 EXAMINATION: MRI BRAIN WWO CONTRAST (GENERIC) CLINICAL HISTORY: MS, serial evaluation for interval new lesions TECHNIQUE: MRI of the brain was performed before and after the intravenousadministration of 20cc Dotarem. COMPARISON: 03/14/2018 FINDINGS: No restricted diffusion. Skull base soft tissues and orbits are unremarkable. There is similar pattern of focal thinning of the corpus callosum theposterior body with T2 hyperintensity. Stable T2 hyperintensity projecting in the left periatrial white matter,right frontal white matter image 95 series 2, and left posterior periventricularwhite matter. There are stable T2 hyperintensities in the left posterior frontal lobe involving periventricular white matter, centrum semiovale and subcorticalwhite matter with focal parenchymal loss best appreciated on axial images 113through 131 of series 2. Marked thinning of the left precentral gyrus isidentified similar to prior exam. There is a new T2 hyperintense lesion involving the splenium of thecorpus callosum eccentric to the left best appreciated on axial images 88 [id number] of series 2. Subtle new T2 hyperintensity projecting the left medial thalamusposteriorly image 86 series 2. No associated abnormal enhancement identified.. IMPRESSION New T2 hyperintense lesions projecting in the splenium of the corpuscallosum eccentric to the left and in the left medial posterior thalamus. No associated abnormal enhancement. Stable remaining lesions in the supratentorial brain characteristic of demyelinating disease. Thank you for letting us participate in the care of this patient. Forquestions regarding this report, please contact the number below. Mike Perez III, MD IMG MRI ORDERABLE S documented in this encounter Visit Diagnoses Diagnosis Multiple sclerosis Multiple sclerosis documented in this encounter Care Teams Ct Technician Relationship Specialty Start Date End Date Nadine Mcduffie MD [address] [place] [address] PCP - General Family Medicine 03/27/17 documented as of this encounter
--- OUTSIDE RECORDS SUMMARY | 2024-05-22 19:42 | XMS_ITS | Encounter Summary ---
[place] [address] Care Team Providers Care Floor Director Name Role Phone Nadine Mcduffie MD Primary Care Provider [phone] Encounter Details Date Type Department Care Team ([facility] Contact Info) Description 01/23/2020 Specialty [place] [address] Cody Flynn, [facility] Social History Tobacco Use Types Packs/Day Years [...] Type Associated Problems Recent Progress Patient-Stated? Author [facility] Medication Compliance and Understanding Patient Facing Action Plan No Chidi Tapia, [facility] Note: Aria hopes to keep relapses from recurring frequently documented as of this encounter Visit Diagnoses Not on filedocumented in this encounter Care Teams Floor Director Relationship Specialty Start Date End Date Nadine Mcduffie MD [address] [place] [address] PCP - General Family Medicine 03/27/17 documented as of this encounter
--- OUTSIDE RECORDS SUMMARY | 2024-05-22 19:42 | XMS_ITS | Encounter Summary ---
Author Organization [facility] Address [facility] [place] [address] Care Team Providers Care Gastroenterology Professor Name Role Phone Nadine Mcduffie MD Primary Care Provider [phone] Encounter Details Date Type Department Care Team (Late st Contact Info) Description 05/11/2018 [place] [address] Mike Perez III, MD [facility] [place] [address] Social History Tobacco Use Types Packs/Day Years [...] Telephone Encounter - Greta Neely RN - 05/11/2018 1:20 PM EST New prescription generated for provider review and signature. * Telephone Encounter - Ashlie Hurt LNA - 05/11/2018 9:56 AM EST I am calling you regarding your MS medication: Copaxone We are in the process of changing all of our specialty MS meds such as the one you are on to be processed through [facility] pharmacy. Instead of waiting for your next office visit to discuss and make this change we would like to sendyour current rx for Copaxone to our [facility] pharmacy for your next fill. The benefits of changing this are many and include: ??? Free Mail order delivery ??? Co-Pay assistance ??? Education and support regarding your medication ??? 23/01 pharmacist availability with any questions/concerns regarding your medication ??? Proactive Medication Prior Authorization work to ensure no gaps in care If you have questions for our pharmacy about this you can call [phone] Do you give us your permission to do this: yes * Telephone Encounter - Ashlie Hurt LNA - 05/11/2018 9:15 AM EST Called regarding MS Specialty Pharmacy. No answer. documented in this encounter Plan of Treatment Not on file documented as of this encounter Visit Diagnoses Not on filedocumented in this encounter Care Teams Gastroenterology Professor Relationship Specialty Start Date End Date Nadine Mcduffie MD [address] [place] [address] PCP - General Family Medicine 03/27/17 documented as of this encounter
--- OUTSIDE RECORDS SUMMARY | 2024-05-22 19:42 | XMS_ITS | Encounter Summary ---
Author Organization [facility] [place] [address] Care Team Providers Care Reel Assembler Name Role Phone Nadine Mcduffie MD Primary Care Provider [phone] Reason for Visit * Reason Onset Date Comments Medication Refill 09/24/2020 Encounter Details Date Type Department Care Team ([facility] Contact Info) Description 09/24/2020 [place] [address] Mike Perez III, MD [facility] [place] [address] Social History Tobacco Use Types Packs/Day Years [...] Type Associated Problems Recent Progress Patient-Stated? Author [facility] [place] [facility] Medication Compliance and Understanding Patient Facing Action Plan No Chidi Tapia, [facility] Note: Aria hopes to keep relapses from recurring frequently documented as of this encounter Visit Diagnoses Not on filedocumented in this encounter Care Teams Reel Assembler Relationship Specialty Start Date End Date Nadine Mcduffie MD [address] [place] [address] PCP - General Family Medicine 03/27/17 documented as of this encounter
--- OUTSIDE RECORDS SUMMARY | 2024-05-22 19:42 | XMS_ITS | Encounter Summary ---
[place] [address] Care Team Providers Care District Medical Examiner Name Role Phone Nadine Mcduffie MD Primary Care Provider [phone] Reason for Visit * Reason Onset Date Comments Follow-up 03/08/2019 Encounter Details Date Type Department Care Team ([facility] Contact Info) Description 03/08/2019 Telephone Obstetrics [place] [address] Rubin Lanza MD [facility] DR OBSTETRICS [place] [address] Follow-up Social History Tobacco Use Types Packs/Day Years [...] as of this encounter Miscellaneous Notes * Addendum Note - Rubin Lanza MD - 03/13/2019 12:36 PM EDTAddended by: RUBIN LANZA on: 03/13/2019 12:36 PM Modules accepted: Orders * Telephone Encounter - Rubin Lanza MD - 03/08/2019 2:03 PM EDT Left msg explaining to pt that I would like to reschedule her appt to an IUD removal with US guidance type of visit since her IUD is embedded. Looks like there is time available on 03/25. Will have computer processing scheduler call. documented in this encounter Plan of Treatment Not on file documented as of this encounter Goals Goal Patient Goal Type Associated Problems Recent Progress Patient-Stated? Author Home Medication Compliance and Understanding Patient Facing Action Plan No Chidi Tapia, [facility] Note: Aria hopes to keep relapses from recurring frequently documented as of this encounter Results * US Intraop Evaluation (IUD) (03/25/2019 3:58 PM EDT) Anatomical Region Laterality Modality Abdomen Ultrasound 03/25/2019 3:25 PM EDT Impressions 03/25/2019 4:15 PM EDT Mirena IUD Guidance - Summary Real time transabdominal ultrasound of the pelvis was performed during the course of a mirena IUD removal at the 5M location for Dr. Rubin Lanza and Anabelle Caballero . ?? Visualization very limited. Unable to advance instruments or ??to remove the IUD in the Adoption Social Worker location. Patient was unable to have full bladder due to MS condition and was unable to tolerate the procedure. ??Limited TA imaging . Thank you for letting us participate in the care of this patient. For questions regarding this report, please contact the number below. Other Pertinent Information^for IUD removal ?Ibeth Dolan, Staff Physician Electronically Signed Final Report ?? 03/25/2019 04:15 pm Narrative 03/25/2019 4:15 PM EDT Gynecological Report ? (Signed Final 03/25/2019 04:15 pm) PATIENT INFO: ID #: ? [id number] ?: ??[birth year] (38 yrs) Name: ? ARIA GRACIA ? Visit Date: 03/25/2019 03:25 pm PERFORMED BY: Performed By: ? Lorna Salinas RDMS Attending: ?Ibeth Dolan MD. Referred By: ?RUBIN LANZA Location: ? [place] SERVICE(S) PROVIDED: ??UIMEGAN - Intraoperative evaluation - [id number] ? [id number] INDICATIONS: ??difficult access to endometrial cavity COMPARISON: Prior US: 07/18/17. -------- HISTORY: -------- Age: ?? 38 Hormone Treatment: ? Mirena IUD per pt ENDOMETRIUM: Procedure Note Ibeth Dolan MD - 03/25/2019 Gynecological Report (Signed Final 03/25/2019 04:15 pm) PATIENT INFO: ID #: [id number] : [birth year] (38 yrs) Name: ARIA GRACIA Visit Date: 03/25/2019 03:25 pm PERFORMED BY: Performed By: Lorna Salinas RDMS Attending: Ibeth Dolan MD Referred By: RUBIN LANZA Location: [place] SERVICE(S) PROVIDED: UINTOP - Intraoperative evaluation - [id number] INDICATIONS: difficult access to endometrial cavity COMPARISON: Prior US: 07/18/17. -------- HISTORY: -------- Age: 38 Hormone Treatment: Mirena IUD per pt ENDOMETRIUM: IMPRESSION Mirena IUD Guidance - Summary Real time transabdominal ultrasound of the pelvis was performed during the course of a mirena IUD removal at the 5M location for Dr. Rubin Lanza and Anabelle Caballero . Visualization very limited. Unable to advance instruments or to remove the IUD in the Adoption Social Worker location. Patient was unable to have full bladder due to MS condition and was unable to tolerate the procedure. Limited TA imaging . Thank you for letting us participate in the care of this patient. For questions regarding this report, please contact the number below. Other Pertinent Information^for IUD removal Ibeth Dolan, Staff Physician Electronically Signed Final Report 03/25/2019 04:15 pm Rubin Lanza MD IMG US PROC ORDERABL ES documented in this encounter Visit Diagnoses Diagnosis Malpositioned intrauterine device (IUD), subsequent encounter Malpositioned intrauterine device (IUD), subsequent encounter documented in this encounter Care Teams District Medical Examiner Relationship Specialty Start Date End Date Nadine Mcduffie MD [address] [place] [address] PCP - General Family Medicine 03/27/17 documented as of this encounter
--- OUTSIDE RECORDS SUMMARY | 2024-05-22 19:42 | XMS_ITS | Encounter Summary ---
Author Organization [facility] [place] [address] Care Team Providers Care Contact Center Specialist Name Role Phone Nadine Mcduffie MD Primary Care Provider [phone] Reason for Visit * Reason Onset Date Comments Prior Authorization 05/14/2018 glatiramer Encounter Details Date Type Department Care Team ([facility] Contact Info) Description 05/14/2018 [place] [address] Meenu Bueno, MARIANO Prior Authorization (glatiramer) Social History Tobacco Use Types Packs/Day Years [...] encounter Miscellaneous Notes * Telephone Encounter - Meenu Bueno - 05/14/2018 2:52 PM EST [facility], Prior Authorization Approval APPROVAL DATES: No PA required SPECIFIC INS REQUIREMENT: Only one fill at Pharmacy, remaining fills must be with [employer] Specialty CASE/REFERENCE # APPROVAL NOTIFICATION RECEIVED VIA: [facility], Medication Prior Authorization Patient: Aria Osborne Henry Patient : 1980 Patient Address: [address] [place] [id number] (home) Medication: Glatiramer Subscriber Insurance: Hannah Fax: Physician: Mike Perez Sent Via: Bull: Ref/Case/PA#: Medication Strength Frequency Requested: Glatiramer 40mg/mL Qty/Day Supply: 06/29 New Start: change to generic Diagnosis & ICD-10 Code: G35 documented in this encounter Plan of Treatment Not on file documented as of this encounter Visit Diagnoses Not on filedocumented in this encounter Care Teams Contact Center Specialist Relationship Specialty Start Date End Date Nadine Mcduffie MD [address] [place] [address] PCP - General Family Medicine 03/27/17 documented as of this encounter
--- OUTSIDE RECORDS SUMMARY | 2024-05-22 19:42 | XMS_ITS | Encounter Summary ---
Author Organization [facility] [address] Care Team Providers Care Gas Charger Name Role Phone Nadine Mcduffie MD Primary Care Provider [phone] Reason for Visit * Reason Comments Medication Refill Encounter Details Date Type Department Care Team ([facility] Contact Info) Description 02/07/2021 [place] [address] Brianna Collado MD [facility] [place] [address] Myoclonus Social History Tobacco Use Types Packs/Day [...] encounter Miscellaneous Notes * Telephone Encounter - Renate Mcintosh RN - 02/08/2021 11:30 AM EDT Medication refill Last visit:01/23/20 Next visit: Two appointments canceled and not rescheduled. Concern: Requested follow up time exceeded. Yearly appointment also exceeded. Patient needs to be contacted to schedule an appointment. documented in this encounter Plan of Treatment Not on file documented as of this encounter Goals Goal Patient Goal Type Associated Problems Recent Progress Patient-Stated? Author DH Home Medication Compliance and Understanding Patient Facing Action Plan No Chidi Tapia, [facility] Note: Aria hopes to keep relapses from recurring frequently documented as of this encounter Visit Diagnoses Diagnosis Myoclonus documented in this encounter Care Teams Gas Charger Relationship Specialty Start Date End Date Nadine Mcduffie MD [address] [place] [address] PCP - General Family Medicine 03/27/17 documented as of this encounter
--- OUTSIDE RECORDS SUMMARY | 2024-05-22 19:42 | XMS_ITS | Encounter Summary ---
Author Organization [facility] Address [facility] [place] [address] Care Team Providers Care Char Belt Operator Name Role Phone Nadine Mcduffie MD Primary Care Provider [phone] Reason for Referral * Consultation (Routine) - Closed Specialty Diagnoses / Procedures Referred By Tonia argueta Referred To Contact Sleep Center Diagnoses Fatigue, unspecified type Mike Perez III, MD [facility] [address] [facility] Sleep Medicine [address] [place] [address] Referral ID Status Reason Start Date Expiration Date V isits Requested Visits Authorized [id number] Closed Consult, Test & Treat 04/09/2018 04/09/2019 1 1 Encounter Details Date Type Department Care Team (Late st Contact Info) Description 04/09/2018 11:00 AM EDT [place] [address] Mike Perez III, MD [facility] [address] Fatigue, unspecified type; Multiple sclerosis Social History Tobacco Use Types [...] Sign Reading Time Taken Comments Blood Pressure 134/68 04/09/2018 10:47 AM EDT Pulse 80 04/09/2018 10:47 AM EDT Temperature - - Respiratory Rate - - Oxygen Saturation - - Inhaled Oxygen Concentration - - Weight 111.1 kg (245 lb) 04/09/2018 10:47 AM EDT Height 165.1 cm (5' 5) 04/09/2018 10:47 AM EDT reported Body Mass Index 40.77 04/09/2018 10:47 AM EDT documented in this encounter Patient Instructions * Patient Instructions* Mike Perez III, MD - 04/09/2018 11:00 AM EDT I am going to refer you to the [facility] Sleep [facility]. Continue to try to exercise on a routine basis. Mediterranean-style diet Continue on Copaxone. Repeat MRI scan of the brain in about 6 months. Please call or Kili message with any questions or concerns. Mike Perez III, MD documented in this encounter Progress Notes * Mike Perez III, MD - 04/09/2018 11:00 AM EDT [facility] Follow-Up Visit Dear Nadine Mcduffie MD, I saw Aria Figueroa in clinic today in follow-up for multiple [...] onset: relapsing Current disease course: relapsing Relapses: 10/2016 - R arm myoclonic jerks 2015 - R thigh numbness (possible relapse) EDSS: 2.5 MS Severity Score (EDSS and Disease Duration): 6.04 Pertinent findings to emphasize are: myD-H Multiple Sclerosis 09/07/2017 09/21/2017 01/04/2018 04/09/2018 Audit Sub Scores 1 (Low Risk) 2 (Low Risk) 1 (Low Risk) 1 (Low Risk) Pain Typical 6 5 7 6 Pain Now 3 4 6 5 Pain at Rest 4 3 6 5 Pain with Activity 4 4 6 5 MSIS-29 95 84 103 100 Treatment History Previous disease therapies: n/a Current disease therapies: Copaxone (10/2017) Imaging History Most recent MRI brain: 03/14/2018 Most recent MRI cervical spine: 09/21/2017 Most recent MRI thoracic spine: 09/21/2017 Interval History: I last saw Aria Figueroa in December 2017. At that time she did not report any new or worsening neurological symptoms. She has started on Copaxone and was tolerating it well. She continues to be followed by Dr. Collado for her right arm tremor. She is currently on lamotrigine and as needed baclofen. She had previously tried Keppra which significantly improved her tremor but she had intolerable side effects. She denies any new neurological symptoms at today's appointment. She continues to have a tremor involving the right arm. She is no longer having the right arm jerks. She denies any significant significant bowel or bladder symptoms. She has a had intermittent blurriness in her right eye but nothing lasting longer than 24 hours. Her main symptom today is fatigue. She is sleeping okay, but is frequently waking feeling tired. Due to this fatigue she is not able to exercise. She does report a history of snoring. She has never had a sleep study. We reviewed an [place] sleepiness scale and she scored a 12. She is interested in a sleep study for potential evaluation of obstructive sleep apnea. She is concerned that her weight has continued to increase. She denies any change in her diet. She is wondering if her weight gain could be related to her multiple sclerosis. Current Medications: reviewed and updated in EMR Review of Systems A ROS was obtained, reviewed with the patient. Pertinent positives and negatives were included in the HPI. Physical Examination Most Recent Vitals: 04/09/18 1047 BP: 134/68 Pulse: 80 Hair, skin, nails, and joints were normal. [...] No myoclonic jerk. ?? Upper extremities (R/L) Coding And Reimbursement Specialist 5/5 Finger abduction 5/5 Finger extension 5/5 Wrist extension 5/5 Elbow flexion 5/5 Elbow extension 5/5 Shoulder abduction 5/5 ?? Lower extremities (R/L) Hip flexion 5/5 Knee extension 5/5 Knee flexion 5/5 Ankle plantarflexion 5/5 Ankle dorsiflexion 5/5 Temperature sensation was intact and symmetric in all distal extremities. Vibratory sensation was slightly reduced at the toes to about 10-12 seconds. Negative Romberg. ?? No dysmetria with [id number] testing bilaterally. Finger tapping was rapid and accurate bilaterally. ?? Standard gait was normal. She was able to tandem walk. REVIEW OF IMAGING STUDIES: MRI brain without and with contrast 03/14/2018: Stable no new lesions Assessment: ICD-10-CM 1. Fatigue, unspecified type R53.83 Referral to Sleep Disorders Center 2. Multiple sclerosis G35 MRI Brain wwo Contrast (Generic) Aria Figueroa is a 37 y.o. woman with relapsing MS without activity or progression on Copaxone. Her neurological examination is stable. She continues to have an irregular tremor in the right arm and hand. She is no longer having the right arm jerks. She is tolerating Copaxone with minimal side effects. We discussed her fatigue at length. Although fatigue is extremely common in patients with MS there is some features of her fatigue that make me think that is less likely to be related to her MS. For example she wakes in the morning feeling fatigued which is relatively atypical. She does snore at night and has mild to moderate excessive daytime sleepiness. She has at increased risk of obstructive sleep apnea due to her obesity. Therefore I am going to refer her to the [facility] sleep study for further evaluation. I do not think that her weight gain is secondary to multiple sclerosis. It is more likely to be related to her fatigue and decreased activity. Treatment Plan: 1. Continue Copaxone 2. Regular exercise Diagnostic/Monitoring Plan: 1. Repeat MRI brain in 6 months 2. Referral to [facility] sleep study Follow-up: 6 months Thank you for allowing us to participate in [facility]. If you have questions or concerns please do not hesitate to call our clinic at [phone]. Mike Perez III, MD Powdered Metal Supervisor of Neurology [facility] 2:07 PM 04/10/2018 documented in this encounter Plan of Treatment Scheduled Referrals Name Type Priority Associated Diagnoses Orde r Schedule Referral to Sleep Disorders Center Outpatient Referral Routine Fatigue, unspecified type Ordered: 04/09/2018 documented as of this encounter Visit Diagnoses Diagnosis Fatigue, unspecified type Multiple sclerosis documented in this encounter Care Teams Char Belt Operator Relationship Specialty Start Date End Date Nadine Mcduffie MD [address] [place] [address] PCP - General Family Medicine 03/27/17 documented as of this encounter
--- OUTSIDE RECORDS SUMMARY | 2024-05-22 19:42 | XMS_ITS | Encounter Summary ---
Author Organization [facility] [place] [address] Care Team Providers Care Visualizer Name Role Phone Nadine Mcduffie MD Primary Care Provider [phone] Reason for Visit * Reason Onset Date Comments Medication Refill 09/23/2020 Encounter Details Date Type Department Care Team ([facility] Contact Info) Description 09/23/2020 [place] [address] Mike Perez III, MD [facility] [place] [address] Social History Tobacco Use Types Packs/Day Years [...] Type Associated Problems Recent Progress Patient-Stated? Author [facility] Medication Compliance and Understanding Patient Facing Action Plan No Chidi Tapia, [facility] Note: Aria hopes to keep relapses from recurring frequently documented as of this encounter Visit Diagnoses Not on filedocumented in this encounter Care Teams Visualizer Relationship Specialty Start Date End Date Nadine Mcduffie MD [address] [place] [address] PCP - General Family Medicine 03/27/17 documented as of this encounter
--- OUTSIDE RECORDS SUMMARY | 2024-05-22 19:42 | XMS_ITS | Encounter Summary ---
[place] [address] Care Team Providers Care Structural Fitter Name Role Phone Nadine Mcduffie MD Primary Care Provider [phone] Encounter Details Date Type Department Care Team (Late st Contact Info) Description 03/19/2018 10:00 AM EDT Office Visit Psychiatry [place] [address] Ang Pineda, PhD Adjustment disorder with mixed [...] Progress Notes * Ang Pineda, PhD - 03/19/2018 10:00 AM EDT INDIVIDUAL THERAPY PROGRESS NOTE Time Spent: 45 minutes CHIEF COMPLAINT/DIAGNOSIS: Adjustment Disorder with mixed anxiety and depressed mood SUBJECTIVE: Mrs. Figueroa reported that she went hiking with her family over the week and was stillfeeling sore and tired. She stated that she had been having more conflict with her . She expressed concern over his health issues and drinking. TREATMENT MODALITY: CBT OBJECTIVE: We discussed how she had been feeling physically and how she had recovered from hiking over the weekend. We discussed her concerns with her related to his health problems and drinking. She stated that she had also been getting upset with him thinking that he is being critical of her and how she is managing her health. We reviewed ABC worksheets and cognitive restructuring, using examples from the week of being out hiking, dealing with MS fatigue, and her being critical. This provider introduced relaxation exercises and we briefly went over a hand out together. We agreed to review handout and practice these exercises together at next session. This provider brought up the option of a referral for couple's counseling and we agreed to discuss this at next session aswell. ASSESSMENT: Mrs. Figueroa denied any change in symptoms since last meeting. She was engaged in session and understood the material presented. She stated that she found the ABC sheets and going through the examples to be helpful. Patient-reported Psychiatry Followup scores and responses: PHQ9 MYD-H PHQ-9 RESPONSES 03/09/2018 Little interest or pleasure Several days Down, depressed, hopeless Several days Phq9 Impairment Somewhat difficult GAD7 GINO-7 Patient Reported Responses 03/09/2018 Nervous, anxious (Patient) Several days Unable to stop worrying (Patient) Several days Worrying about different things (Patient) Several days Trouble relaxing (Patient) More than half the days Restless (Patient) Not at all Easily annoyed, irritable (Patient) Several days Afraid something awful will happen (Patient) Not at all Difficulty (Patient) Somewhat difficult GINO-7 Score (Patient) 6 (Mild Anxiety) Psychiatry Improvement Scale: Psychiatry Improvement Scale 03/09/2018 Improvement Scale No change PLAN: Revised goals or interventions: Continue CBT, review cognitive structuring and relaxation exercises ?? Safety Risk Management: Denied SI/HI ?? Assigned Homework: Complete ABC worksheets, review relaxation handouts * Heena Kelsey, PhD - 03/19/2018 10:00 AM EDT I reviewed this note and agree with the treatment plan.jls documented in this encounter Plan of Treatment Not on file documented as of this encounter Visit Diagnoses Diagnosis Adjustment disorder with mixed anxiety and depressed mood documented in this encounter Care Teams Structural Fitter Relationship Specialty Start Date End Date Nadine Mcduffie MD [address] [place] [address] PCP - General Family Medicine 03/27/17 documented as of this encounter
--- OUTSIDE RECORDS SUMMARY | 2024-05-22 19:42 | XMS_ITS | Encounter Summary ---
[place] [address] Care Team Providers Care Sweetbread Trimmer Name Role Phone Nadine Mcduffie MD Primary Care Provider [phone] Reason for Visit * Reason Onset Date Comments Medication Problem 07/29/2019 Encounter Details Date Type Department Care Team ([facility] Contact Info) Description 07/29/2019 [place] [address] Jeramie Limon Medication Problem Social History Tobacco Use Types Packs/Day Years [...] Telephone Encounter - Greta Neely RN - 08/01/2019 12:27 PM EST New rx for glatiramer generic prepared for provider review and signature. * Telephone Encounter - Jeramie Limon - 07/29/2019 2:11 PM EST Caller and relationship to patient (if other than patient): Pharmacy Best time to reach caller: 9-5:30pm EST Message or Reason for Call: The pharmacy stated Aria Waller insurance rejected the coverage of glatiramer (COPAXONE) 40 mg/mL Syringe. Her insurance would cover the generic form of glatiramer 20mg/ml or 40mg/ml. Please use reference number: [id number] She will also send a fax to dept. Appt Needed and Reason: ? Provider: Chris documented in this encounter Plan of Treatment Not on file documented as of this encounter Goals Goal Patient Goal Type Associated Problems Recent Progress Patient-Stated? Author DH Home Medication Compliance and Understanding Patient Facing Action Plan No Chidi Tapia, [facility] Note: Aria hopes to keep relapses from recurring frequently documented as of this encounter Visit Diagnoses Not on filedocumented in this encounter Care Teams Sweetbread Trimmer Relationship Specialty Start Date End Date Nadine Mcduffie MD [address] [place] [address] PCP - General Family Medicine 03/27/17 documented as of this encounter
--- OUTSIDE RECORDS SUMMARY | 2024-05-22 19:42 | XMS_ITS | Encounter Summary ---
Author Organization [facility] [place] [address] Care Team Providers Care Data Modeling Architect Name Role Phone Nadine Mcduffie MD Primary Care Provider [phone] Encounter Details Date Type Department Care Team (Latest Contact Info) Description 03/25/2019 3:30 PM EDT Procedure visit Obstetrics [place] [address] Helen Aguilar MD [facility] [address] [place] [address] Unsuccessful attempt to remove intrauterine device (IUD) Social History Tobacco Use Types Packs/Day Years [...] as of this encounter Progress Notes * Sophia Lanier - 03/25/2019 3:30 PM EDT [facility] Gynecology Procedure Visit REASON FOR VISIT: IUD removal under US guidance. Subjective: Aria Figueroa is a 38 y.o. female who is here today to have her Paragard IUDremoved. It was originally placed ~7-8 years ago. She underwent multiple attempts at office removalbetween 05/2017 and 07/2017 with avulsion of strings on final attempt. Plan was made to have the IUD removed under hysteroscopic guidance but patient delayed the procedure as she was undergoing work-up for MS. Reports she is hopeful we will be able to remove the IUD today. She and her are hoping to achieve , he is planning on having vasectomy reversal in the near future. Denies changes to menses except has noticed in the last 2y that her cervix is more sensitive when she is on her periodand it is more uncomfortable to wear a tampon. Otherwise, denies change in her bleeding pattern, postcoital bleeding, or abnormal vaginal discharge. ROS: See HPI, all others negative. Objective: There were no vitals filed for this visit. General: Appears healthy and well nourished. No apparent distress. Pelvic: Normal-appearing external genitalia. Vagina and cervix without lesion. Physiologic discharge present. IUD strings not visible. Procedure Description: Prior to the start of this procedure, I confirmed the patient's identity, intended procedure and availability of equipment needed. Cervix visualized w/ speculum in place. Cervix swabbed with betadinex 3. Paracervical block administered, 5mL 1% Lidocaine injected at 4 and 8 o'clock at the cervicovaginal junction. Abdominal US was performed with limited visualization of the uterus as patient was unable to maintain a full bladder due to incontinence in setting of MS. Attempt made to pass the Alligator clamp through the cervix without success. Single toothed tenaculum applied to the anterior lipof the cervix. The Alligator clamp was then able to pass through the internal os but with significant patient discomfort. Decision made to abandon the procedure and perform removal in the OR under hysteroscopic guidance. Assessment/Plan: 38 y.o. female with retained Paragard IUD s/p multiple unsuccessful attempts at office removal. Hysteroscopic IUD removal ordered, counseled patient that surgical schedulers will call her to set a date. Dr. Helen Aguilar was present for the entire procedure without conflicting clinical responsibilities. Sophia aLnier, DO PGY3 Obstetrics & Gynecology 03/25/2019 I was the attending physician supervising the resident in the above care and I was present with theresident for the entire procedure. documented in this encounter Plan of Treatment Not on file documented as of this encounter Goals Goal Patient Goal Type Associated Problems Recent Progress Patient-Stated? Author DH Home Medication Compliance and Understanding Patient Facing Action Plan No Chidi Tapia, [facility] Note: Aria hopes to keep relapses from recurring frequently documented as of this encounter Visit Diagnoses Diagnosis Unsuccessful attempt to remove intrauterine device (IUD) documented in this encounter Care Teams Data Modeling Architect Relationship Specialty Start Date End Date Nadine Mcduffie MD [address] [place] [address] PCP - General Family Medicine 03/27/17 documented as of this encounter
--- OUTSIDE RECORDS SUMMARY | 2024-05-22 19:42 | XMS_ITS | Encounter Summary ---
Author Organization [facility] Address [facility] [place] [address] Care Team Providers Care Clay Miner Name Role Phone Nadine Mcduffie MD Primary Care Provider [phone] Encounter Details Date Type Department Care Team (Late st Contact Info) Description 05/14/2018 [place] [address] Mike Perez III, MD [facility] [place] [address] Social History Tobacco Use Types Packs/Day Years [...] Telephone Encounter - Greta Neely RN - 05/14/2018 1:57 PM EST Per Pharmacy staff pt must use [facility]. She can only get 1 fill at [facility]. She as$0 copay with generic Per Dr. Perez okay for patient to get generic copaxone (glatiramer). I phoned pt and reviewed above. She would like to get first fill where ever it is faster. I did phone [facility] pharmacy and they have 1 month supply in stock. Glatiramer rx approved by Dr. Perez and phoned directly to pharmacist. Another new rx generated [facility] provider review and [facility] Plan: as above and I attempted to phone pt back. There was no answer. Detailed message regarding above left on named voice mail with instruction to call [facility] pharmacy prior to picking up to be sure they have it ready. documented in this encounter Plan of Treatment Not on file documented as of this encounter Visit Diagnoses Not on filedocumented in this encounter Care Teams Clay Miner Relationship Specialty Start Date End Date Nadine Mcduffie MD [address] [place] [address] PCP - General Family Medicine 03/27/17 documented as of this encounter
--- OUTSIDE RECORDS SUMMARY | 2024-05-22 19:42 | XMS_ITS | Encounter Summary ---
Author [facility] Address [facility] [address] Care Team Providers Care Flood Control Engineer Name Role Phone Nadine Mcduffie MD Primary Care Provider [phone] Reason for Visit * Reason Onset Date Comments Bumped Appointment 01/08/2020 Encounter Details Date Type Department Care Team ([facility] st Contact Info) Description 01/08/2020 [place] [address] Mike Perez III, MD [facility] [place] [address] Bumped Appointment Social History Tobacco Use Types [...] encounter Miscellaneous Notes * Telephone Encounter - Aria Mccall - 01/08/2020 3:21 PM EDT Accommodations will be made for pt to be seen in clinic. No rescheduling needs to be done at this time. Closing enc. * Telephone Encounter - Aira Mccall - 01/08/2020 9:30 AM EDT Reschedule needed for 01/23/20 for Telehealth or next avail in clinic appt documented in this encounter Plan of Treatment Not on file documented as of this encounter Goals Goal Patient Goal Type Associated Problems Recent Progress Patient-Stated? Author DH Home Medication Compliance and Understanding Patient Facing Action Plan No Chidi Tapia, [facility] Note: Aria hopes to keep relapses from recurring frequently documented as of this encounter Visit Diagnoses Not on filedocumented in this encounter Care Teams Flood Control Engineer Relationship Specialty Start Date End Date Nadine Mcduffie MD [address] [place] [address] PCP - General Family Medicine 03/27/17 documented as of this encounter
--- OUTSIDE RECORDS SUMMARY | 2024-05-22 19:42 | XMS_ITS | Encounter Summary ---
[place] [address] Care Team Providers Care Editing Internship Name Role Phone Nadine Mcduffie MD Primary Care Provider [phone] Encounter Details Date Type Department Care Team ([facility] st Contact Info) Description 05/15/2018 Specialty [place] [address] Chidi Tapia [facility] Social History Tobacco Use Types Packs/Day Years [...] Progress Notes * Chidi Tapia RPH - 05/15/2018 8:38 AM EST Clinical Management Plan: Transfer of Care/Discharge Specialty Services Specialty Pharmacy Consultation; Chidi Tapia RPH Comprehensive Medication Management (CMM) Aria [place] [address] [facility] [address] Telephone Information: Work Phone Not on file. Is the patient transferring services to a different Specialty Pharmacy or discontinuing the medication? Transfer Medication: glatiramer Reason for discontinuation or transfer: Insurance mandates [facility] Approximate date of discontinuation or transfer: 05/15/18 (will take effect in approx 28 days) Patient's response to therapy: positive Summary of services provided by [facility]: consultation and interim dispensing of 1-month fill Summary of on-going needs: pt will continue with clinic and obtain refills from [facility] Referral for additional services (if applicable): no Is patient aware of referral? yes - aware and has used mail order before Instructions provided to patient about discharge/transfer: yes - pt aware of transfer Provider aware of discontinuation or transfer: yes, Lynne Neely aware and has already acted on transfer Patient understands no changes to current drug regimen were made at the appointment and that [facility] (summary located at top of note) for provider review and follow up. Chidi Tapia RPH 05/15/18 8:38 AM documented in this encounter Plan of Treatment Not on file documented as of this encounter Goals Goal Patient Goal Type Associated Problems Recent Progress Patient-Stated? Author DH Home Medication Compliance and Understanding Patient Facing Action Plan No Chidi Tapia [facility] Note: Aria hopes to keep relapses from recurring frequently documented as of this encounter Visit Diagnoses Not on filedocumented in this encounter Care Teams Editing Internship Relationship Specialty Start Date End Date Nadine Mcduffie MD [address] [place] [address] PCP - General Family Medicine 03/27/17 documented as of this encounter
--- OUTSIDE RECORDS SUMMARY | 2024-05-22 19:42 | XMS_ITS | Encounter Summary ---
Author Organization [facility] [place] [address] Care Team Providers Care Architect Manager Name Role Phone Nadine Mcduffie MD Primary Care Provider [phone] Encounter Details Date Type Department Care Team (Late st Contact Info) Description 02/22/2018 Telephone Obstetrics [place] [address] Helen Aguilar MD [facility] [address] [place] [address] Social History Tobacco Use Types Packs/Day Years [...] on filedocumented in this encounter Care Teams Architect Manager Relationship Specialty Start Date End Date Nadine Mcduffie MD [address] [place] [address] PCP - General Family Medicine 03/27/17 documented as of this encounter
--- OUTSIDE RECORDS SUMMARY | 2024-05-22 19:42 | XMS_ITS | Encounter Summary ---
Author Organization [facility] Address [facility] [place] [address] Care Team Providers Care Teacher Specialist Name Role Phone Nadine Mcduffie MD Primary Care Provider [phone] Encounter Details Date Type Department Care Team ([facility] Contact Info) Description 04/17/2019 11:00 AM EDT [place] [address] Mike Perez III, MD [facility] [place] [address] Multiple sclerosis Social History Tobacco Use Types [...] Sign Reading Time Taken Comments Blood Pressure 112/71 04/17/2019 10:44 AM EDT Pulse 68 04/17/2019 10:44 AM EDT Temperature - - Respiratory Rate - - Oxygen Saturation - - Inhaled Oxygen Concentration - - Weight 110.2 kg (243 lb) 04/17/2019 10:44 AM EDT Height 165.1 cm (5' 5) 04/17/2019 10:44 AM EDT reported Body Mass Index 40.44 04/17/2019 10:44 AM EDT documented in this encounter Patient Instructions * Patient Instructions* Mike Perez III, MD - 04/17/2019 11:00 AM EDT You have at least 1 new lesion on MRI scan and your examination is notable for worsening weakness in the R leg and slower walking speed. We talked about staying on Copaxone or switching to a different medication (especially in light of consideration of ). I will see you back in a couple of months to discuss. Mike Perez III, MD documented in this encounter Progress Notes * Mike Perez III, MD - 04/17/2019 11:00 AM EDT Multiple Sclerosis [facility] Follow-Up Visit Dear Nadine Mcduffie MD, I saw Aria Waller in clinic today in follow-up for multiple sclerosis. She was unaccompanied at today's visit. Below is my progress note with impression and plan. Please do not hesitate to call with any questions. Appointment time: 10:55 AM-11:35 AM (40 minutes) DISEASE SUMMARY: Principal neurologic diagnosis: MS Diagnosis of MS: 2018 - onset possibly in 2014 CSF: 8 oligoclonal bands, elevated IgG index and IgG synthesis rate Disease course at onset: relapsing Current disease course: relapsing Relapses: 2015 - R thigh numbness (possible relapse) 10/2016 - R arm myoclonic jerks EDSS: 2.5 MS Severity Score (EDSS and Disease Duration): 6.04 Pertinent findings to emphasize are: myD-H Multiple Sclerosis 09/07/2017 09/21/2017 01/04/2018 04/09/2018 04/17/2019 Audit Sub Scores 1 (Low Risk) 2 (Low Risk) 1 (Low Risk) 1 (Low Risk) 3 (Low Risk) Pain Typical 6 5 7 6 6 Pain Now 3 4 6 5 5 Pain at Rest 4 3 6 5 5 Pain with Activity 4 4 6 5 5 MSIS-29 95 84 103 100 98 Treatment History Previous disease therapies: n/a Current disease therapies: Copaxone (10/2017) Imaging History Most recent MRI brain: 04/17/2019 Most recent MRI cervical spine: 09/21/2017 Most recent MRI thoracic spine: 09/21/2017 Interval History: I last saw rAia Waller in April 2018. At that time she did not report any new or worsening neurological symptoms. She had started on Copaxone and was tolerating it well. She continued to have intermittent tremor of the R arm, but her R arm jerks had resolved. She had been on lamotrigine and asneeded baclofen. She was previously on Keppra which significantly improved her tremor but she had intolerable side effects. Today, Aria reports that she has been off of Copaxone for the last few months due to insurance changes. She was briefly on a Cobra plan, but is now on employer insurance plan. She is hoping to restart her Copaxone in the near future. Several months ago, while still on Copaxone, she developed subacute onset of mild rightleg weaknessand incoordination. She has had one mechanical fall while turning quickly on a stair. She overall feels more off balance than in the past. She does not feel like there was any recovery from this onset of symptoms. She also notes increased urinary urgency with rare urinary incontinence. There is sometimes some hesitation with initiation of urinary stream, but she feels as though she completely empties. More frequently than not when she has an urge there is very little urine volume. She denies any urinary tract infections. MS Symptom Review: Cognition: no issues Vision: noting some mild changes in vision in the R eye Fatigue: yes, moderate - still able to work full days Mood: depressed, more irritable, starting to see a counselor Sleep: No issues Neuropathic symptoms: none Spasms/spasticity: Occasional spasms in her right arm for which she occasionally takes baclofen 5 mg Falls: 1 in the past 6 months Bladder: As above Bowel: No issues Lifestyle: Employment: Works for a [employer] company not routinely exercising Exercise: Not regularly exercising Diet: Not discussed at today's appointment Sleep: No difficulties Current Medications: reviewed and updated in EMR Review of Systems A ROS was obtained, reviewed with the patient. Pertinent positives and negatives were included in the HPI. Physical Examination Most Recent Vitals: 04/17/19 1044 BP: 112/71 Pulse: 68 Hair, skin, nails, and joints were normal. [...] No myoclonic jerk. ?? 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 Negative Romberg. ?? No dysmetria with [id number] testing bilaterally. Finger tapping was rapid and accurate bilaterally. ?? Standard gait was normal. She was able to tandem walk. Timed 25 foot walk: 4.7 s (last 4.0 om 12/2017) REVIEW OF IMAGING STUDIES: MRI brain without and with contrast 04/17/2019: IMPRESSION New T2 hyperintense lesions projecting in the splenium of the corpus callosum eccentric to the left and in the left medial posterior thalamus. No associated abnormal enhancement. Stable remaining lesions in the supratentorial brain characteristic of demyelinating disease. Assessment: ICD-10-CM 1. Multiple sclerosis G35 Aria Waller is a 38 y.o. woman with relapsing MS with activity previously on Copaxone. She has been off of Copaxone for the last several months due to insurance changes. She is reporting new onsetof right leg weakness and incoordination starting several months ago while still on Copaxone. Her neurological examination is notable for new right lower extremity weakness (mild) and slow gaitand stable sensory deficit and tremor in the right upper extremity. MRI scan of her brain completed today shows at least one new lesion involving the splenium of the corpus callosum on the left. I am not certain that the lesion in the medial posterior thalamus is newand may have been present on prior MRI scans. I do not think that there is any benefit in trial of steroids at this point in time for her probable relapse that occurred several months ago. Steroids only improve speed of recovery and have more effect in the early stages of a relapse. We discussed her MS disease activity despite being on Copaxone (relapse occurred while on Copaxone). I think that she is should switch to a more potent therapy. However, she and her are considering a future . We discussed possibility as far as medication management including continuing on Copaxone, or switching to an infusion therapy such as natalizumab or ocrelizumab and how thes e medications could be dosed prior to (ocrelizumab) or during (natalizumab). There are potential safety concerns related to both these infusion medications including potential risks to the unborn fetus. She and her will discuss planning and I will see her back in clinic in approximately 2 months to form a plan. Treatment Plan: 1. Continue Copaxone 2. Continue lamotrigine 75 mg twice daily -we could consider switching to an alternative medicationsuch as Topamax 3. Continue baclofen 5 mg as needed for right upper extremity spasms 4. Recommend regular exercise 5. Continue with psychological counseling for depression 6. Urinary urgency with rare incontinence: We could consider a trial of oxybutynin in the future. Follow-up: 2 months Thank you for allowing us to participate in [facility]. If you have questions or concerns please do not hesitate to call our clinic at [phone]. Mike Perez III, MD [facility] More than 50% of this 40-minute [id number] encounter was spent in counseling on diagnosis, prognosis, symptom management, and medications. 12:51 PM 04/17/2019 documented in this encounter Plan of Treatment Not on file documented as of this encounter Goals Goal Patient Goal Type Associated Problems Recent Progress Patient-Stated? Author DH Home Medication Compliance and Understanding Patient Facing Action Plan No Chidi Tapia, [facility] Note: Aria hopes to keep relapses from recurring frequently documented as of this encounter Visit Diagnoses Diagnosis Multiple sclerosis documented in this encounter Care Teams Teacher Specialist Relationship Specialty Start Date End Date Nadine Mcduffie MD [address] [place] [address] PCP - General Family Medicine 03/27/17 documented as of this encounter
--- OUTSIDE RECORDS SUMMARY | 2024-05-22 19:42 | XMS_ITS | Encounter Summary ---
Author Organization [facility] [place] [address] Care Team Providers Care Price Checker Name Role Phone Nadine Mcduffie MD Primary Care Provider Encounter Details Date Type Department Care Team ([facility] Contact Info) Description 03/29/2018 11:30 AM EDT [place] [address] Brianna Collado MD [facility] [place] [address] Myoclonus Social History Tobacco Use Types Packs/Day [...] Sign Reading Time Taken Comments Blood Pressure 125/67 03/29/2018 11:05 AM EDT Pulse 79 03/29/2018 11:05 AM EDT Temperature - - Respiratory Rate - - Oxygen Saturation - - Inhaled Oxygen Concentration - - Weight 110.7 kg (244 lb) 03/29/2018 11:05 AM EDT Height 165.1 cm (5' 5) 03/29/2018 11:05 AM EDT reported Body Mass Index 40.6 03/29/2018 11:05 AM EDT documented in this encounter Progress Notes * Brianna Collado MD - 03/29/2018 11:30 AM EDT [facility] Movement Disorders Follow Up Patient Evaluation Date of service 03/29/2018 Referring provider Nadine Mcduffie MD [address] [place] [address] Cc: right arm twitches History of present illness Aria Figueroa is a 37 y.o. right handed woman who presents to the movement disorders clinic for evaluation of arm movements. She has been having a twitch in her right arm since October 2016. This was a sudden onset and worsening over time. MRI brain showed T2 hyperintensity in the left motor area with broad potential differential. Extensive serum and CSF studies were negative except for elevatedoligoclonal bands in CSF consistent with multiple sclerosis. She has been doing OK since last visit. Just recently she has had some episodes of exhaustion and right eye vision changes. When very tired also has worsening of the twitching. The right side is moreaffected by the twitching. She has also noted her right foot catching on things more easily. She has had near falls. She often forgets the lamictal later dose. When she is on the higher dose she feels better. 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 SHe is having a lot of pain in the right shoulder and neck presumably from the twitching. This has been so painful that it causes nausea. Patient Active Problem List Diagnosis Code ??? Anxiety F41.9 ??? Hypothyroidism E03.9 ??? Obesity (BMI 30-39.9) E66.9 ??? Abnormal MRI R93.8 ??? 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 Tobacco use disorder, moderate, in early remission F17.201 ??? Multiple sclerosis G35 ??? Neck pain M54.2 Current Outpatient Prescriptions: ??? COPAXONE 40 mg/mL Syringe, Inject 40 mg subcutaneously three times a week. Brand name copaxone necessary, Disp: 36 Syringe, Rfl: 1 ??? levothyroxine (SYNTHROID) 50 mcg Tablet, Take 50 mcg by mouth daily., Disp: , Rfl: ??? lamoTRIgine (LAMICTAL) 25 mg Tablet, Increase by 50mg each week to goal of 150mg BID. Patient has titration schedule, Disp: 360 tablet, Rfl: 12 ??? venlafaxine (EFFEXOR-XR) 150 mg Capsule, Sust. Release 24 hr, Take 1 capsule by mouth daily. Add 75mg to total 225mg daily - may substitute 3x75mg, 150+75mg, or 225mg tablet daily, Disp: 90 capsule, Rfl: 3 ??? chlorhexidine (HIBICLENS) 4 % Liquid, Wash affected areas once weekly as needed., Disp: 120 mL,Rfl: 1 ??? tiZANidine (ZANAFLEX) 2 mg Tablet, Take 1 tablet by mouth every 6 hours as needed (muscle pain). (Patient not taking: Reported on 03/29/2018), Disp: 30 tablet, Rfl: 0 ??? baclofen (LIORESAL) 10 mg Tablet, Take 0.5 tablets by mouth 2 times daily as needed. 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 Voice/language: no vocal tremor or dysarthria. Normal fluency and comprehension Gait: Occasional righ arm jerks during ambulation. Otherwise normal base of stance and normal stepping. Additional movement disorder specific findings: Right arthymic shaking of the right arm, jerky irregular and variable direction and amplitude of the shaking Tone is normal Review of available labs and imaging: MRI brain personally reviewed. There is a left posterior frontal area of T2 hyperintensity along the motor cortex. Cerebral volume and gyri appear normal. CTA head unremarkable. EEG unremarkable. Labs: Factor V leiden, lyme, MICHAEL, cardiolipin Ab, RAEANN all negative B12, CA, TSH, ferritin, CMP, ceruloplasmin all within normal limits WBC was 12.5 in May 2017, 12.8 in Mar 2017 CSF studies: Oligoclonal bands 9 and IgG index elevated HSV 1&2, enterovirus, CMV, VZV, culture, paraneoplastic panel, lymphoma screen, SCOTT and [place] all negative Assessment and plan: # multiple sclerosis # mixed tremors She has had right upper extremity movements since October 2016. Initially these were most consistent with myoclonus but now are more like an irregular tremor. She had great relief with keppra but could not tolerate the side effects. She does have some relief from lamictal. She has only been taking the morning dose and does not her symptoms seem worse on the lower dose. This should be helpful for movements and for mood. She continues to follow with Dr. Perez for her MS and will be seeing him next week. She is on copaxone. We briefly discussed medical marijuana today. She has some hesitations about this. I shared I only have anecdotal evidence of benefit. I would be willing to verify her diagnosis on forms if needed for her to get a medical marijuana card. - get back on lamictal 75mg BID, once on this dose regularly I will send in for 100mg tablets and she can take 100mg BID - set alarm to take levothyroxine - use baclofen PRN - OK to try medical marijuana from my standpoint Brianna Collado MD [facility] Neurology-Movement Disorders documented in this encounter Plan of Treatment Not on file documented as of this encounter Visit Diagnoses Diagnosis Myoclonus documented in this encounter Care Teams Price Checker Relationship Specialty Start Date End Date Nadine Mcduffie MD [address] [place] [address] PCP - General Family Medicine 03/27/17 documented as of this encounter
--- OUTSIDE RECORDS SUMMARY | 2024-05-22 19:42 | XMS_ITS | Encounter Summary ---
Author Organization [facility] Address [facility] [place] [address] Care Team Providers Care Section Leader Screen Printing Name Role Phone Nadine Mcduffie MD Primary Care Provider [phone] Encounter Details Date Type Department Care Team (Latest Contact Info) Description 03/25/2019 3:20 PM EDT - 03/25/2019 11:59 PM EDT Hospital En[place] [address] Rubin Lanza MD [facility] DR OBSTETRICS [place] [address] Malpositioned intrauterine device (IUD), subsequent encounter Discharge Disposition: Home Social History Tobacco Use [...] Understanding Patient Facing Action Plan Chidi Mattson, [facility] Note: Aria hopes to keep relapses from recurring frequently documented as of this encounter Procedures Procedure Name Priority Date/Time Associated Diagnosis Comments US IUD PLACEMENT OR REMOVAL Routine 03/25/2019 3:58 PM EDT Malpositioned intrauterine device (IUD), subsequent encounter documented in this encounter Results * US Intraop Evaluation [...] or ??to remove the IUD in the [place] location. Patient was unable to have full bladder due to MS condition and was unable to tolerate the procedure. ??Limited TA imaging . Thank you for letting us participate in the care of this patient. For questions regarding this report, please contact the number below. Electronically signed by: Ibeth Dolan MD, [facility] ([phone]), at 03/25/2019 4:08 PM Other Pertinent Information^for IUD removal ?Ibeth Dolan, Staff Physician Electronically Signed Final Report ?? 03/25/2019 04:15 pm Narrative 03/25/2019 4:15 PM EDT Gynecological Report ? (Signed Final 03/25/2019 04:15 pm) PATIENT INFO: ID #: ? [id number] ?: ??[birth year] (38 yrs) Name: ? ARIA Osborne BASIL ? Visit Date: 03/25/2019 03:25 pm PERFORMED BY: Performed By: ? Kate Salinas RDMSgail Attending: ?Magdaleno MADSEN, Ibeth Jesus Referred By: ?RUBIN LANZA Location: ? [facility] SERVICE(S) PROVIDED: ??HAILEY - Intraoperative evaluation - [id number] ? [id number] INDICATIONS: ??difficult access to endometrial cavity COMPARISON: Prior US: 07/18/17. -------- HISTORY: -------- Age: ?? 38 Hormone Treatment: ? Mirena IUD per pt ENDOMETRIUM: Procedure Note Ibeth Dolan MD - 03/25/2019 Gynecological Report (Signed Final 03/25/2019 04:15 pm) PATIENT INFO: ID #: [id number] : [birth year] (38 yrs) Name: ARIA GRACIA Visit Date: 03/25/2019 03:25 pm PERFORMED BY: Performed By: Lorna Salinas RDMS Attending: Ibeth Dolan MD. Referred By: RUBIN LANZA Location: [facility] SERVICE(S) PROVIDED: UINTOP - Intraoperative evaluation - [id number] INDICATIONS: difficult access to endometrial cavity COMPARISON: [...] or to remove the IUD in the [place] location. Patient was unable to have full [...] Report 03/25/2019 04:15 pm Rubin Lanza MD [facility] documented in this encounter Visit Diagnoses Diagnosis Malpositioned intrauterine device (IUD), subsequent encounter documented in this encounter Care Teams Section Leader Screen Printing Relationship Specialty Start Date End Date Nadine Mcduffie MD [address] [place] [address] PCP - General Family Medicine 03/27/17 documented as of this encounter
--- OUTSIDE RECORDS SUMMARY | 2024-05-22 19:42 | XMS_ITS | Encounter Summary ---
[place] [address] Care Team Providers Care Supervisor Inspecting Name Role Phone Nadine Mcduffie MD Primary Care Provider [phone] Encounter Details Date Type Department Care Team ([facility] st Contact Info) Description 03/09/2018 9:00 AM EDT Office Visit Psychiatry [place] [address] Ang Pineda, PhD Adjustment disorder with mixed [...] Progress Notes * Ang Pineda, PhD - 03/09/2018 9:00 AM EDT INDIVIDUAL THERAPY PROGRESS NOTE Time Spent: 45 minutes CHIEF COMPLAINT/DIAGNOSIS: Adjustment Disorder with mixed anxiety and depressed mood SUBJECTIVE: Mrs. Figueroa reported that she had been feeling about the same since last meeting. Shestated that she was busy with school stuff for her step- children over the holiday weekend. She stated that her and her got into an argument over the weekend after letting things build up, butthat she is feeling better about where they are at now. TREATMENT MODALITY: CBT OBJECTIVE: We reviewed her week and the time she spent with her step-children and . We reviewed her symptoms discussed at last session. We discussed treatment options and different skills to cover within CBT. These include relaxation techniques, mindfulness, cognitive restructuring, and behavioral experiments. She expressed an interest in starting with cognitive restructuring to learn how to better challenge her thoughts. This senior technical writer introduced cognitive restructuring using an ABC worksheet. We practiced completing a couple of worksheets together in session. We discussed having her complete worksheets daily for homework and agreed to discuss relaxation techniques at next session. ASSESSMENT: Mrs. Figueroa denied any change in [...] goals or interventions: Continue CBT, review cognitive structuring, introduce relaxation exercises Safety Risk Management: Denied SI/HI Assigned Homework: Complete ABC worksheets * Pastora Montero PsyD - 03/09/2018 9:00 AM EDT I was present on location at [facility] outpatient services (5D) and was available for any necessary supervision if needed. Further supervision will be provided by primary supervisor vegetable farming. documented in this encounter Plan of Treatment Not on file documented as of this encounter Visit Diagnoses Diagnosis Adjustment disorder with mixed anxiety and depressed mood documented in this encounter Care Teams Supervisor Inspecting Relationship Specialty Start Date End Date Nadine Mcduffie MD [address] [place] [address] PCP - General Family Medicine 03/27/17 documented as of this encounter
--- OUTSIDE RECORDS SUMMARY | 2024-05-22 19:42 | XMS_ITS | Encounter Summary ---
Author Organization [facility] [place] [address] Care Team Providers Care Recovery Engineer Name Role Phone Nadine Mcduffie MD Primary Care Provider [phone] Reason for Visit * Reason Onset Date Comments Medication Refill 06/01/2020 Encounter Details Date Type Department Care Team ([facility] Contact Info) Description 06/01/2020 [place] [address] Brianna Collado MD [facility] [place] [address] Social History Tobacco Use Types Packs/Day Years [...] Type Associated Problems Recent Progress Patient-Stated? Author [facility] Medication Compliance and Understanding Patient Facing Action Plan No Chidi Tapia, [facility] Note: Aria hopes to keep relapses from recurring frequently documented as of this encounter Visit Diagnoses Not on filedocumented in this encounter Care Teams Recovery Engineer Relationship Specialty Start Date End Date Nadine Mcduffie MD [address] [place] [address] PCP - General Family Medicine 03/27/17 documented as of this encounter
--- OUTSIDE RECORDS SUMMARY | 2024-05-22 19:42 | XMS_ITS | Encounter Summary ---
Author Organization [facility] Address [facility] [place] [address] Care Team Providers Care Clinical Nurse Occupational Medicine Name Role Phone Nadine Mcduffie MD Primary Care Provider [phone] Encounter Details Date Type Department Care Team (Late st Contact Info) Description 09/24/2020 [place] [address] Mike Perez III, MD [facility] [place] [address] Social History Tobacco Use Types Packs/Day Years [...] Telephone Encounter - Greta Neely RN - 09/24/2020 9:45 AM EDT New rx generated for provider review and signature to go to [facility] mail order / specialty pharmacy. * Telephone Encounter - Sherwin Leslie - 09/24/2020 9:25 AM EDT Call Center / [place] Message Prescription Refill Request Clinical [place] message Provider patient sees in Clinic: Dr. Perez Caller and relationship (if other than patient-full name): Tanja [facility] Call back Number: [phone] Ok to leave a message: yes Name of Med: glatiramer Strength of Pills: 40 mg/mL Syringe Dosing Directions: Inject 40 mg subcutaneously three times a week. May dispense generic 30 or 90 Day Supply: 90 Pharmacy: [address] Last Appointment: 01/23/20 Next Appointment: (IF CALL IS FROM PATIENT/FAMILY AND THERE IS NO FOLLOW UP SCHEDULED REVIEW CHART TO SEE WHEN APPOINTMENT IS NEEDED AND SCHEDULE BEFORE SENDING MESSAGE) Patient has been notified to reschedule FUV Is Patient out of Medication?: unknown What is the issue patient is having with medication (ex: dose increase, not at pharmacy): Specialtymed, script needs to be sent to [facility]. Reference # [id number] documented in this encounter Plan of Treatment Not on file documented as of this encounter Goals Goal Patient Goal Type Associated Problems Recent Progress Patient-Stated? Author [facility] Medication Compliance and Understanding Patient Facing Action Plan No Chidi Tapia, [facility] Note: Aria hopes to keep relapses from recurring frequently documented as of this encounter Visit Diagnoses Not on filedocumented in this encounter Care Teams Clinical Nurse Occupational Medicine Relationship Specialty Start Date End Date Nadine Mcduffie MD [address] [place] [address] PCP - General Family Medicine 03/27/17 documented as of this encounter
--- OUTSIDE RECORDS SUMMARY | 2024-05-22 19:42 | XMS_ITS | Encounter Summary ---
Author Organization [facility] [place] [address] Care Team Providers Care Dray Truck Driver Name Role Phone Nadine Mcduffie MD Primary Care Provider [phone] Reason for Visit * Reason Onset Date Comments Medication Refill 06/20/2019 Encounter Details Date Type Department [facility] Team ([facility] Contact Info) Description 06/20/2019 [place] [address] Brianna Collado MD [facility] [place] [address] Social History Tobacco Use Types Packs/Day Years [...] on filedocumented in this encounter Care Teams Dray Truck Driver Relationship Specialty Start Date End Date Nadine Mcduffie MD [address] [place] [address] PCP - General Family Medicine 03/27/17 documented as of this encounter
--- OUTSIDE RECORDS SUMMARY | 2024-05-22 19:42 | XMS_ITS | Encounter Summary ---
Author [facility] [place] [address] Care Team Providers Care Biscuit Packer Name Role Phone Nadine Mcduffie MD Primary Care Provider [phone] Reason for Visit * Reason Comments Medication Refill Encounter Details Date Type Department Care Team ([facility] Contact Info) Description 07/16/2018 [place] [address] Mike Perez III, MD [facility] [place] [place] [address] Social History Tobacco Use Types Packs/Day Years [...] Type Associated Problems Recent Progress Patient-Stated? Author [facility] Medication Compliance and Understanding Patient Facing Action Plan No Chidi Tapia, [facility] Note: Aria hopes to keep relapses from recurring frequently documented as of this encounter Visit Diagnoses Not on filedocumented in this encounter Care Teams Biscuit Packer Relationship Specialty Start Date End Date Nadine Mcduffie MD [address] [place] [address] PCP - General Family Medicine 03/27/17 documented as of this encounter
--- OUTSIDE RECORDS SUMMARY | 2024-05-22 19:42 | XMS_ITS | Encounter Summary ---
Author Organization [facility] Address [facility] [place] [address] Care Team Providers Care Circulation Sales Representative Name Role Phone Nadine Mcduffie MD Primary Care Provider [phone] Reason for Visit * Reason Onset Date Comments Medication Refill 05/29/2020 Encounter Details Date Type Department Care Team ([facility] Contact Info) Description 05/29/2020 Telephone [place] [address] Mike Perez III, MD [facility] [place] [address] Medication Refill Social History Tobacco Use Types [...] encounter Miscellaneous Notes * Telephone Encounter - Mike Perez III, MD - 05/29/2020 12:57 PM EST I sent in a prescription for lamotrigine 100mg tablets - 1.5 tablets (150mg) 2 times daily, which is the same as 6 x 25mg tablets 2 times dialy as previously prescribed. Mike Perez III, MD * Telephone Encounter - OliverJaleel bell - 05/29/2020 11:42 AM EST Call Center / [employer] Message Prescription Refill Request Clinical [employer] message Patient is wondering if this comes in 75 mg tablets as she has to take so many pills? Please andres as patient is completely out. Provider patient sees in Clinic: Dr. Perez Caller and relationship (if other than patient-full name): self Call back Number: [phone] Ok to leave a message: yes Name of Med: lamoTRIgine (LAMICTAL) Strength of Pills: 25 mg Tablet Dosing Directions: Take 6 tablets by mouth 2 times daily. 30 or 90 Day Supply: 90 Pharmacy: [facility] in [facility] Last Appointment: 01/23/20 Next Appointment: (IF CALL IS FROM PATIENT/FAMILY AND THERE IS NO FOLLOW UP SCHEDULED REVIEW CHART TO SEE WHEN APPOINTMENT IS NEEDED AND SCHEDULE BEFORE SENDING MESSAGE) 07/27/20 Is Patient out of Medication?: yes documented in this encounter Plan of Treatment [...] on filedocumented in this encounter Care Teams Circulation Sales Representative Relationship Specialty Start Date End Date Nadine Mcduffie MD [address] [place] [address] PCP - General Family Medicine 03/27/17 documented as of this encounter
--- OUTSIDE RECORDS SUMMARY | 2024-05-22 19:42 | XMS_ITS | Encounter Summary ---
Author Organization [facility] [place] [address] Care Team Providers Care Flame Planer Name Role Phone Nadine Mcduffie MD Primary Care Provider [phone] Reason for Visit * Reason Onset Date Comments Medication Refill 05/11/2018 Encounter Details Date Type Department Care Team (Late st Contact Info) Description 05/11/2018 [place] [address] Mike Perez III, MD [facility] [place] [address] Social History Tobacco Use Types Packs/Day Years [...] on filedocumented in this encounter Care Teams Flame Planer Relationship Specialty Start Date End Date Nadine Mcduffie MD [address] [place] [address] PCP - General Family Medicine 03/27/17 documented as of this encounter
--- OUTSIDE RECORDS SUMMARY | 2024-05-22 19:42 | XMS_ITS | Encounter Summary ---
Author Organization [facility] [place] [address] Care Team Providers Care Emergency Detail Driver Name Role Phone Nadine Mcduffie MD Primary Care Provider [phone] Reason for Visit * Reason Onset Date Comments Medication Refill 07/18/2018 Encounter Details Date Type Department Care Team ([facility] Contact Info) Description 07/18/2018 [place] [address] Mike Perez III, MD [facility] [place] [address] Social History Tobacco Use Types Packs/Day Years [...] Plan No Chidi Tapia, [facility] Note: Aria hopes to keep relapses from recurring frequently documented as of this encounter Visit Diagnoses Not on filedocumented in this encounter Care Teams Emergency Detail Driver Relationship Specialty Start Date End Date Nadine Mcduffie MD [address] [place] [address] PCP - General Family Medicine 03/27/17 documented as of this encounter
--- OUTSIDE RECORDS SUMMARY | 2024-05-22 19:42 | XMS_ITS | Encounter Summary ---
Author Organization [facility] Address [facility] [place] [address] Care Team Providers Care Metal Roofing Mechanic Name Role Phone Nadine Mcduffie MD Primary Care Provider Encounter Details Date Type Department Care Team (Late st Contact Info) Description 07/27/2018 [place] [address] Mike Perez III, MD [facility] [place] [address] Social History Tobacco Use Types Packs/Day Years [...] Telephone Encounter - Greta Neely RN - 07/27/2018 3:[address] Perez reviewed and is not certain that she is having an MS Flair. He would like her to see how she does over the weekend and call us Monday with update. Dr. Perez states he can see her urgently next week if necessary. I phoned pt and reviewed/instructed above. She agrees with plan and verbalizes understanding. * Telephone Encounter - Greta Neely RN - 07/27/2018 1:05 PM EST Multiple Sclerosis Symptom Last Appointment: 04/09/18 Next Appointment: Not yet scheduled Primary Question/Concern Today patient questions if she is having an MS Flair. She has been waitingto be seen in the ER but is no longer going to wait and would like Dr. Perez to review. Current Symptoms: (for any positive/yes answer provide explanation) ??? Changes in sensation: numbness to upper lip ??? Changes in strength:weakness to legs - difficulty with ambulation ??? Changes in vision: blurry vision to right eye ??? When did symptoms start/or start to get worse: last night ??? Has pt had symptoms in past: has had the leg weakness/difficulty walking and blurry vision in the past ??? What alleviates symptoms: ??? What aggravates symptoms: Current Medications: Current Outpatient Medications on File Prior to Visit Medication Sig Dispense Refill ??? venlafaxine (EFFEXOR-XR) 150 mg Capsule, Sust. Release 24 hr Take 150 mg by mouth daily. ??? glatiramer (COPAXONE) 40 mg/mL Syringe Inject 40 mg subcutaneously three times a week. May dispense generic 12 Syringe 5 ??? baclofen (LIORESAL) 10 mg Tablet Take 0.5 tablets by mouth 2 times daily as needed. 60 tablet 11 ??? levothyroxine (SYNTHROID) 50 mcg Tablet Take 50 mcg by mouth daily. ??? lamoTRIgine (LAMICTAL) 25 mg Tablet Increase by 50mg each week to goal of 150mg BID. Patient has titration schedule (Patient taking differently: Take 75 mg by mouth 2 times daily.) 360 tablet 12 ??? [DISCONTINUED] venlafaxine (EFFEXOR-XR) 150 mg Capsule, Sust. Release 24 hr Take 1 capsule by mouth daily. Add 75mg to total 225mg daily - may substitute 3x75mg, 150+75mg, or 225mg tablet daily (Patient taking differently: Take 150 mg by mouth daily.) 90 capsule 3 ??? chlorhexidine (HIBICLENS) 4 % Liquid Wash affected areas once weekly as needed. 120 mL 1 Current Facility-Administered Medications on File Prior to Visit Medication Dose Route Frequency Provider Last Rate Last Dose ??? flu vacc (6 mos-64 yrs)(PF) (Flulaval Quad) IM injection 0.5 mL 0.5 mL Intramuscular Prior to discharge Raad Mercado MD GENERAL QUESTIONS (for any positive response note explanation) ??? Any current sleep concerns: No ??? Any current appetite or eating concerns: No ??? Any bowel or bladder concerns: had urinary urgency/incontinence yesterday morning but no issuessince ??? Any current pain concerns: shoulder pain has increased a lot ??? Any new worries, stressors, or routine changes: No change ??? Any recent Illness/Surgery/Injury: No Plan/Intervention/Follow Up: I will forward to Dr. Perez for further review and recommendation. Pt aware I will phone her back once input available. Pt agrees with plan and verbalizes understanding. * Telephone Encounter - Jenise Chandler - 07/27/2018 12:51 PM EST Clinical [place] Message Caller: Aria If not Pt / Relation to pt: self Call back Number: [phone] Best time to reach caller: anytime Reason for call: pt at [facility] Message/information for the nurse: Pt called from the ER at [facility], stating she is currently at the ER, experiencing an MS flare. She has been triaged but is still awaiting care. She requested a same Kindly call to advise. Disposition of Call ?? Red Arrow Message Reason red arrow Message: Pt in ER at [facility] documented in this encounter Plan of Treatment Not on file documented as of this encounter Goals Goal Patient Goal Type Associated Problems Recent Progress Patient-Stated? Author [facility] Medication Compliance and Understanding Patient Facing Action Plan Chidi Mattson, [facility] Note: Aria hopes to keep relapses from recurring frequently documented as of this encounter Visit Diagnoses Not on filedocumented in this encounter Care Teams Metal Roofing Mechanic Relationship Specialty Start Date End Date Nadine Mcduffie MD [address] [place] [address] PCP - General Family Medicine 03/27/17 documented as of this encounter
--- OUTSIDE RECORDS SUMMARY | 2024-05-22 19:42 | XMS_ITS | Encounter Summary ---
Author Organization [facility] [place] [address] Care Team Providers Care Software Client Architect Name Role Phone Nadine Mcduffie MD Primary Care Provider [phone] Reason for Visit * Reason Onset Date Comments Medication Refill 05/14/2018 Encounter Details Date Type Department Care Team ([facility] Contact Info) Description 05/14/2018 [place] [address] Mike Perez III, MD [facility] [place] [address] Social History Tobacco Use Types Packs/Day Years [...] on filedocumented in this encounter Care Teams Software Client Architect Relationship Specialty Start Date End Date Nadine Mcduffie MD [address] [place] [address] PCP - General Family Medicine 03/27/17 documented as of this encounter
--- OUTSIDE RECORDS SUMMARY | 2024-05-22 19:42 | XMS_ITS | Encounter Summary ---
Author Organization [facility] Address [facility] [place] [address] Care Team Providers Care Note Specialist Name Role Phone Nadine Mcduffie MD Primary Care Provider [phone] Encounter Details Date Type Department Care Team (Late st Contact Info) Description 10/29/2021 [place] [address] Mike Perez III, MD [facility] [place] [address] Social History Tobacco Use Types Packs/Day Years [...] Telephone Encounter - Greta Neely RN - 10/29/2021 9:14 AM EDT I phoned [facility] and spoke with pharmacy sales representative education courses and informed staff ICD 10 code is G35. They have documented this and are all set. Plan: as above and no further action required at this time. * Telephone Encounter - Greta Neely RN - 10/29/2021 9:10 AM EDT Copied from CRM #[id number]. Topic: Specialty Dept CRMs - Medication Issues >> Oct 28, 2021 4:41 PM Martha Watts wrote: Medication Issues Specialist Mike Perez MD Relationship (if other than patient-full name): Ananya [facility] pharmacy Reason for call: Medication Issue (if symptom based used Triage Subtopic) Message/information for the nurse: unable to process through insurance Name of Medication: glatiramer (Copaxone) 40 mg/mL Syringe Issue with the medication: Pharmacy is requesting an ICD 10 code in order to process this medication through the patients insurance documented in this encounter Plan of Treatment [...] on filedocumented in this encounter Care Teams Note Specialist Relationship Specialty Start Date End Date Nadine Mcduffie MD [address] [place] [address] PCP - General Family Medicine 03/27/17 documented as of this encounter
--- OUTSIDE RECORDS SUMMARY | 2024-05-22 19:42 | XMS_ITS | Encounter Summary ---
[place] [address] Care Team Providers Care Seed Buyer Name Role Phone Nadine Mcduffie MD Primary Care Provider [phone] Reason for Visit * Reason Comments Multiple Sclerosis Encounter Details Date Type Department Care Team ([facility] st Contact Info) Description 07/27/2018 10:47 AM EST - 07/27/2018 1:22 PM EST Emergency [place] [address] Discharge Disposition: Left Without Being Seen after Triage Social History Tobacco Use Types Packs/Day Years [...] Sign Reading Time Taken Comments Blood Pressure 141/76 07/27/2018 11:41 AM EST Pulse 76 07/27/2018 11:41 AM EST Temperature 36.6 ??C (97.9 ??F) 07/27/2018 11:[address] Respiratory Rate 18 07/27/2018 11:41 AM EST Oxygen Saturation 98% 07/27/2018 11:41 AM EST Inhaled Oxygen Concentration - - Weight 106.6 kg (235 lb) 07/27/2018 11:41 AM EST Height 165.1 cm (5' 5) 07/27/2018 11:41 AM EST Body Mass Index 39.11 07/27/2018 11:41 AM EST documented in this encounter Medications at Time of Discharge Medication Sig Dispensed Refills Start Date End Date levothyroxine (SYNTHROID) 50 mcg Tablet Take 50 mcg by mouth daily. glatiramer (COPAXONE) 40 mg/mL Syringe Inject 40 mg subcutaneously three times a week. May dispense generic 12 Syringe 5 07/18/2018 12/06/2018 baclofen (LIORESAL) 10 mg Tablet Take 0.5 [...] Action Plan No Chidi Tapia, [facility] Note: Aria hopes to keep relapses from recurring frequently documented as of this encounter Visit Diagnoses Not on filedocumented in this encounter Active and Recently Administered Medications Care Teams Seed Buyer Relationship Specialty Start Date End Date Nadine Mcduffie MD [address] [place] [address] PCP - General Family Medicine 03/27/17 documented as of this encounter
--- OUTSIDE RECORDS SUMMARY | 2024-05-22 19:42 | XMS_ITS | Encounter Summary ---
[place] [address] Care Team Providers Care Utility Bagger Name Role Phone Nadine Mcduffie MD Primary Care Provider [phone] Reason for Referral * Diagnostic Test (Routine) - Specialty Diagnoses / Procedures Referred By Contac t Referred To Contact Radiology Diagnoses Multiple sclerosis Procedures MRI Brain wwo Contrast (Generic) Mike Perez III, MD [facility] [place] [address] [place] [address] Referral ID Status Reason Start Date Expiration Date Visits Requested Visits Authorized [id number] Specialty Service Requested 04/17/2019 04/17/2019 1 1 Reason for Visit * Diagnostic Test (Routine) - Specialty Diagnoses / Procedures Referred By Contac t Referred To Contact Radiology Diagnoses Multiple sclerosis Procedures MRI Brain wwo Contrast (Generic) Mike Perez III, MD [facility] [place] [address] [place] [address] Referral ID Status Reason Start Date Expiration Date Visits Requested Visits Authorized [id number] Specialty Service Requested 04/17/2019 04/17/2019 1 1 Encounter Details Date Type Department Care Team (Latest Contact Info) Description 04/17/2019 7:45 AM EDT Hospital [place] [address] Mike Perez III, MD [facility] [place] [address] Multiple sclerosis Discharge Disposition: Home Social History [...] as of this encounter Progress Notes * Qing Cortés RN - 04/17/2019 8:48 AM EDT MRI PRE-SEDATION ASSESSMENT NOTE NAME: Aria Osborne Henry AGE: 38 y.o. : [address] [place] [id number] Female [phone] (home) Telephone Information: Nadine Mcduffie MD No primary care provider on file. Allergies Allergen Reactions ??? Hydrocodone-Acetaminophen mood lability ??? Sulfa (Sulfonamide Antibiotics) edema ??? Penicillins Rash Date/Time of call: April 11, 2019/4:49 PM/ PREVIOUS MRI SCAN? yes HEIGHT: 5'5 WEIGHT: 216lbs SCHEDULED SCAN: MRI BRAIN WWO CONTRAST [[id number]] (60 mins, head first, supine) SUBJECTIVE: Claustrophobic. Had difficulty getting thru scan on regular bore, requested large bore CAN YOU LAY FLAT? Yes AIRWAY ISSUES? none DO YOU HAVE ANY INVOLUNTARY MOVEMENTS? none DO YOU HAVE ANY PAIN? none DO YOU TAKE PAIN MED ON A DAILY BASIS? no ASSESSMENT: Appropriate for PO Sedate PLAN: Ativan 1mg PO X2 ( JPM) You must have a driver helper present when you check in. This patient has been informed that they require a driver helper to drive them home after this procedure. In the absence of a driver helper, IR will not be able to sedate for your scan. Pt verbalized understanding of these instructions during the pre-procedure education via phone. Yes Name of driver helper: Phone number ?? PRIOR SCAN DATE/S ?SEDATION TYPE ? SUCCESSFUL 05/18/17 MRI Brain wo Ativan 1 mg PO x 2 Yes 06/14/17 MRI Brain w/wo Ativan 1 mg PO ??yes 04/17/19 MRI Brain wwo Ativan 1 mg PO x 1 Yes ? Revised 11/28/17 documented in this encounter [...] left best appreciated on axial images 88 of series 2. Subtle new T2 hyperintensity [...] the number below. Mike Perez III, MD IM MRI ORDERABLE S documented in this encounter Visit Diagnoses Diagnosis Multiple sclerosis documented in this encounter Administered Medications Inactive Administered Medications - up to 3 most recent administrations Medication Order MAR Action Action Date Dose Rate Site LORazepam (ATIVAN) tablet 1 mg 1 mg, Oral, EVERY 30 MIN PRN, 2 doses, Starting on Mon04/17/19 at 0814, Until Andressa 04/18/19 at 0434, Anxiety, Angio/IR (Day of Procedure), Routine Given 04/17/2019 8:19 AM EDT 1 mg documented in this encounter Care Teams Utility Bagger Relationship Specialty Start Date End Date Nadine Mcduffie MD [address] [place] [id number] PCP - General Family Medicine 03/27/17 documented as of this encounter
--- OUTSIDE RECORDS SUMMARY | 2024-05-22 19:42 | XMS_ITS | Encounter Summary ---
[place] [address] Care Team Providers Care Realtime Court Reporter Name Role Phone Nadine Mcduffie MD Primary Care Provider [phone] Encounter Details Date Type Department Care Team ([facility] st Contact Info) Description 02/20/2019 Orders Only [place] [address] Aria Mccall Social History Tobacco Use Types Packs/Day Years [...] Type Associated Problems Recent Progress Patient-Stated? Author [facility] Medication Compliance and Understanding Patient Facing Action Plan No Chidi Tapia, [facility] Note: Aria hopes to keep relapses from recurring frequently documented as of this encounter Visit Diagnoses Not on filedocumented in this encounter Care Teams Realtime Court Reporter Relationship Specialty Start Date End Date Nadine Mcduffie MD [address] [place] [address] PCP - General Family Medicine 03/27/17 documented as of this encounter
--- OUTSIDE RECORDS SUMMARY | 2024-05-22 19:42 | XMS_ITS | Encounter Summary ---
[place] [address] Care Team Providers Care Program Therapist Name Role Phone Nadine Mcduffie MD Primary Care Provider [phone] Reason for Visit * Reason Comments Specialty Pharmacy Review Encounter Details Date Type Department Care Team ([facility] Contact Info) Description 07/27/2020 Specialty [place] [address] Cody Flynn RPH Social History Tobacco Use [...] Progress Notes * Cody Flynn RPH - 07/27/2020 8:17 AM EST The [facility] has completed a benefits investigation for Aria Waller to review their eligibility to fill at [facility]. Per patient's medication list they are prescribed glatiramer and the medication is not able to be filled at the [facility]. documented in this encounter [...] on filedocumented in this encounter Care Teams Program Therapist Relationship Specialty Start Date End Date Nadine Mcduffie MD [address] [place] [address] PCP - General Family Medicine 03/27/17 documented as of this encounter
--- OUTSIDE RECORDS SUMMARY | 2024-05-22 19:42 | XMS_ITS | Encounter Summary ---
Author Organization [facility] [place] [address] Care Team Providers Care Well Logging Captain Name Role Phone Nadine Mcduffie MD Primary Care Provider [phone] Reason for Visit * Reason Onset Date Comments Medication Refill 10/27/2021 Encounter Details Date Type Department Care Team ([facility] Contact Info) Description 10/27/2021 [place] [address] Mike Perez III, MD [facility] [place] [address] Social History Tobacco Use Types Packs/Day Years [...] Type Associated Problems Recent Progress Patient-Stated? Author [facility] Medication Compliance and Understanding Patient Facing Action Plan No Chidi Tapia, [facility] Note: Aria hopes to keep relapses from recurring frequently documented as of this encounter Visit Diagnoses Not on filedocumented in this encounter Care Teams Well Logging Captain Relationship Specialty Start Date End Date Nadine Mcduffie MD [address] [place] [address] PCP - General Family Medicine 03/27/17 documented as of this encounter
--- OUTSIDE RECORDS SUMMARY | 2024-05-22 19:42 | XMS_ITS | Encounter Summary ---
Author Organization [facility] [place] [address] Care Team Providers Care Junior Media Buyer Name Role Phone Nadine Mcduffie MD Primary Care Provider [phone] Reason for Visit * Reason Comments Medication Refill Encounter Details Date Type Department Care Team ([facility] Contact Info) Description 06/29/2021 [place] [address] Brianna Collado MD [facility] [place] [address] Myoclonus Social History Tobacco Use Types Packs/Day [...] Telephone Encounter - Yesenia Mars CMA - 06/29/2021 7:22 AM EST Surescript request for : lamictal Last rx: 02/08/21 Quantity: 360 Refills: 1 Last appt: 01/23/20 Next appt: Pt needs a follow up appt- MSG sent to company secretary pool documented in this encounter Plan of Treatment Not on file documented as of this encounter Goals Goal Patient Goal Type Associated Problems Recent Progress Patient-Stated? Author [facility] Medication Compliance and Understanding Patient Facing Action Plan Chidi Mattson, [facility] Note: Aria hopes to keep relapses from recurring frequently documented as of this encounter Visit Diagnoses Diagnosis Myoclonus documented in this encounter Care Teams Junior Media Buyer Relationship Specialty Start Date End Date Nadine Mcduffie MD [address] [place] [address] PCP - General Family Medicine 03/27/17 documented as of this encounter
--- OUTSIDE RECORDS SUMMARY | 2024-05-22 19:42 | XMS_ITS | Encounter Summary ---
Author Organization [place] [id number] Care Team Providers Care Roll Tester Name Role Phone Nadine Mcduffie MD Primary Care Provider [phone] Reason for Referral * Diagnostic Test (Routine) - Specialty Diagnoses / Procedures Referred By Contac t Referred To Contact Radiology Diagnoses Multiple sclerosis Procedures MRI Brain wwo Contrast (Generic) Mike Perez III, MD [facility] [place] [address] [place] [address] Referral ID Status Reason Start Date Expiration Date Visits Requested Visits Authorized [id number] Specialty Service Requested 01/10/2018 04/10/2018 2 2 Reason for Visit * Diagnostic Test (Routine) - Specialty Diagnoses / Procedures Referred By Contac t Referred To Contact Radiology Diagnoses Multiple sclerosis Procedures MRI Brain wwo Contrast (Generic) Mike Perez III, MD [facility] [place] [address] [place] [address] Referral ID Status Reason Start Date Expiration Date Visits Requested Visits Authorized [id number] Specialty Service Requested 01/10/2018 04/10/2018 2 2 Encounter Details Date Type Department Care Team (Latest Contact Info) Description 03/14/2018 12:03 PM EDT - 03/14/2018 11:59 PM EDT Hospital Encounter MRI at [facility] [place] [address] Mike Perez III, MD [facility] [place] [address] Multiple sclerosis Discharge Disposition: Home Social History [...] Comments MRI BRAIN WWO CONTRAST (GENERIC) Routine 03/14/2018 1:40 PM EDT Multiple sclerosis documented in this encounter Results * MRI Brain wwo Contrast (Generic) (03/14/2018 1:40 PM EDT) Anatomical Region Laterality Modality Head Magnetic Resonan ce Impressions 03/14/2018 3:36 PM EDT Findings consistent with multiple sclerosis. Allowing for differences in technique, no new lesion is identified. There is no abnormal enhancement. Narrative 03/14/2018 3:36 PM EDT EXAMINATION: MRI BRAIN WWO CONTRAST (GENERIC) CLINICAL HISTORY: MS, serial evaluation for interval new lesions TECHNIQUE: MR of the brain performed prior to and following intravenous administration of 22 mL dotarem COMPARISON: 06/14/2017, 05/18/2017 FINDINGS: Multiple areas of signal abnormality and juxtacortical and periventricular white matter. On for slight differences in technique, the appearance and distribution of the lesions is similar. Largest single area of abnormality involves the left precentral gyrus, where there is localized volume loss. There is no abnormal enhancement. No restricted diffusion. Procedure Note Doron Solano MD - 03/14/2018 EXAMINATION: MRI BRAIN WWO CONTRAST (GENERIC) CLINICAL HISTORY: MS, serial evaluation for interval new lesions TECHNIQUE: MR of the brain performed prior to and following intravenous administration of 22 mL dotarem COMPARISON: 06/14/2017, 05/18/2017 FINDINGS: Multiple areas of signal abnormality and juxtacortical and periventricular white matter. On for slight differences in technique,the appearance and distribution of the lesions is similar. Largest single areaof abnormality involves the left precentral gyrus, where there is localizedvolume loss. There is no abnormal enhancement. No restricted diffusion. IMPRESSION Findings consistent with multiple sclerosis. Allowing for differences in technique, no new lesion is identified. Thereis no abnormal enhancement. Mike Perez III, MD IMG MRI ORDERABLE S documented in this encounter Visit Diagnoses Diagnosis Multiple sclerosis documented in this encounter Administered Medications Inactive Administered Medications - up to 3 most recent administrations Medication Order MAR Action Action Date Dose Rate Site gadoterate meglumine (DOTAREM) 0.5 mmol/mL (376.9 mg/mL) injection 0-20 mL/kg 0-20 mL/kg/dose, Intravenous, ONCE PRN, 1 dose, Starting on Mon03/14/18 at 1348, Until Mon03/14/18 at 1335, Per Protocol, Radiology Contrast, Routine Given 03/14/2018 1:35 PM EDT 22 mLs documented in this encounter Care Teams Roll Tester Relationship Specialty Start Date End Date Nadine Mcduffie MD [address] [place] [address] PCP - General Family Medicine 03/27/17 documented as of this encounter
--- OUTSIDE RECORDS SUMMARY | 2024-05-22 19:42 | XMS_ITS | Encounter Summary ---
Author Organization [facility] [place] [address] Care Team Providers Care Background Check Coordinator Name Role Phone Nadine Mcduffie MD Primary Care Provider [phone] Reason for Visit * Reason Onset Date Comments Medication Refill 12/06/2018 Encounter Details Date Type Department Care Team ([facility] Contact Info) Description 12/06/2018 [place] [address] Mike Perez III, MD [facility] [place] [address] Social History Tobacco Use Types Packs/Day Years [...] Plan No Chidi Tapia, [facility] Note: Aria hopes to keep relapses from recurring frequently documented as of this encounter Visit Diagnoses Not on filedocumented in this encounter Care Teams Background Check Coordinator Relationship Specialty Start Date End Date Nadine Mcduffie MD [address] [place] [address] PCP - General Family Medicine 03/27/17 documented as of this encounter
--- OUTSIDE RECORDS SUMMARY | 2024-05-22 19:43 | XMS_ITS | Encounter Summary ---
Author Organization [facility] [place] [address] Care Team Providers Care Stitching Department Supervisor Name Role Phone Nadine Mcduffie MD Primary Care Provider [phone] Reason for Visit * Reason Onset Date Comments Other 10/04/2017 Encounter Details Date Type Department Care Team ([facility] Contact Info) Description 10/04/2017 Telephone [place] [address] Mike Perez III, MD [facility] [place] [address] Other Social History Tobacco Use Types Packs/Day Years Used Date Smoking Tobacco: Former Cigarettes Q uit: 06/2017 Smokeless Tobacco: Never Alcohol Use Standard Drinks/Week Comments No 0.8 (1 standard drink = 0.6 oz p ure alcohol) Sex and Gender Information Value Date Recorded Sex Assigned at Not on file Gender Identity Not on file Sexual Orientation Not on file documented as of this encounter Miscellaneous Notes * Telephone Encounter - Greta Neely RN - 10/05/2017 10:48 AM EDT Copaxone prescription and service request form dated and initialed by Dr. Perez [facility] to fax number [phone] at 10:29 am. * Telephone Encounter - Greta Neely RN - 10/04/2017 4:10 PM EDT I phoned back [facility]. I explained that I faxed back form yesterday with date. [facility] did not get this. It was faxed to [facility] and [facility] has not received it yet. [facility] is asking that [facility] it to fax number [phone] Perez initial the date. * Telephone Encounter - Yasmin Johnson - 10/04/2017 2:47 PM EDT Caller: Lucio If not Pt / Relation to pt: [facility] Best time to reach caller: anytime After 230 pm (if not red arrow message) - Informed caller that if the nurse does not call back by the end of the day they will be called tomorrow AM Best number to reach caller:[phone] use option 3 to pharmacy Reason for call: Lucio states that she will need a call back to verify the date of the prescription so that it can sent out to the patient in a timely fashion. Please call [facility] back with the date of the prescription. documented in this encounter Plan of Treatment Not on file documented as of this encounter Visit Diagnoses Not on filedocumented in this encounter Care Teams Stitching Department Supervisor Relationship Specialty Start Date End Date Nadine Mcduffie MD [address] [place] [address] PCP - General Family Medicine 03/27/17 documented as of this encounter
--- OUTSIDE RECORDS SUMMARY | 2024-05-22 19:43 | XMS_ITS | Encounter Summary ---
Author Organization [facility] [place] [address] Care Team Providers Care Customer Support Technician Name Role Phone Nadine Mcduffie MD Primary Care Provider [phone] Encounter Details Date Type Department Care Team ([facility] Contact Info) Description 06/17/2017 Tele[place] [address] Stephane Aguilar MD [facility] [place] [address] Social History Tobacco Use Types Packs/Day Years Used Date Smoking Tobacco: Every Day Cigarettes 1 15 Started: 04/11/1994; Last attempted to quit: 04/11/2009 Smokeless Tobacco: Never Comments:wants to quit, has tried the patch Alcohol Use Standard Drinks/Week Comments No 0.8 (1 standard drink = 0.6 oz p ure alcohol) Sex and Gender Information Value Date Recorded Sex Assigned at Not on file Gender Identity Not on file Sexual Orientation Not on file documented as of this encounter Miscellaneous Notes * Telephone Encounter - Stephane Aguilar - 06/17/2017 7:28 PM EST Telephone Encounter Note - 06/17/2017 7:28 PM Caller: Aria Follows with Dr. Collado Has been on Keppra for 2.5 days Having all of hte bad side effects She can't walk, stand without feeling like she is going to fall over. She is rageful, irritable, depressed, slept for 14 hours. Symptoms (reasons for being on keppra to begin with, arm shaking) are better, but the rest of her life is falling apart. She states I would rather have the twitching of the arms than have any of these side effects from the Keppra. I'm afraid that if I continue like this, I'll lose my family and lose my job. Also quit smoking cold-turkey today as well. Advised: - Congratulated her on tobacco cessation - Stop taking the keppra tonight, this can cause above side effects - Would favor starting valproic acid, as it can help with myoclonus, as well as mood stabilization - Start with 250 mg BID for now - Will advise that this medication is NOT compatible with - Would use [facility] in [facility]. - [phone] is her cell, she would like a call tomorrow (06/18/17) after Rx is sent. CC: Tobias Aguilar MD Neurology, PGY3 Personal Pager #[phone] 06/17/2017 documented in this encounter Plan of Treatment Not on file documented as of this encounter Visit Diagnoses Not on filedocumented in this encounter Care Teams Customer Support Technician Relationship Specialty Start Date End Date Nadine Mcduffie MD [address] [place] [address] PCP - General Family Medicine 03/27/17 documented as of this encounter
--- OUTSIDE RECORDS SUMMARY | 2024-05-22 19:43 | XMS_ITS | Encounter Summary ---
Author Organization [facility] [place] [address] Care Team Providers Care Commercial Lease Administrator Name Role Phone Nadine Mcduffie MD Primary Care Provider [phone] Encounter Details Date Type Department Care Team ([facility] Contact Info) Description 06/16/2017 Telephone [place] [address] Brianna Collado MD [facility] [place] [address] Social History Tobacco Use Types Packs/Day Years [...] encounter Miscellaneous Notes * Telephone Encounter - Emily Phelps RN - 06/16/2017 9:47 AM EST Called patient and left message with MRI results as noted. * Telephone Encounter - Emily Phelps RN - 06/16/2017 9:47 AM EST ----- Message from Brianna Collado MD sent at 06/15/2017 1:14 PM EST ----- Please call patient with imaging results (ok to leave message). Her blood vessels in the brain are normal. The additional MRI images did not show anything new. No changes in management based on theseresults. We will discuss in detail at her follow up appointment 07/04/17. documented in this encounter Plan of Treatment Not on file documented as of this encounter Visit Diagnoses Not on filedocumented in this encounter Care Teams Commercial Lease Administrator Relationship Specialty Start Date End Date Nadine Mcduffie MD [address] [place] [address] PCP - General Family Medicine 03/27/17 documented as of this encounter
--- OUTSIDE RECORDS SUMMARY | 2024-05-22 19:43 | XMS_ITS | Encounter Summary ---
[place] [address] Care Team Providers Care Ophthalmic Technician Name Role Phone Nadine Mcduffie MD Primary Care Provider [phone] Reason for Referral * Diagnostic Test (Routine) - Specialty Diagnoses / Procedures Referred By Tonia argueta Referred To Contact Radiology Diagnoses Multiple sclerosis Procedures MRI Brain wwo Contrast (Generic) Mike Perez III, MD [facility] [place] [address] [place] [address] Referral ID Status Reason Start Date Expiration Date Visits Requested Visits Authorized [id number] Specialty Service Requested 01/10/2018 04/10/2018 2 2 Encounter Details Date Type Department Care Team (Late st Contact Info) Description 01/04/2018 1:00 PM EDT Office [place] [address] Mike Perez III, MD [facility] [place] [address] Multiple sclerosis Social History Tobacco Use Types [...] Sign Reading Time Taken Comments Blood Pressure 130/65 01/04/2018 12:45 PM EDT Pulse 76 01/04/2018 12:45 PM EDT Temperature - - Respiratory Rate - - Oxygen Saturation - - Inhaled Oxygen Concentration - - Weight 108.9 kg (240 lb) 01/04/2018 12:45 PM EDT Height 165.1 cm (5' 5) 01/04/2018 12:45 PM EDT reported Body Mass Index 39.94 01/04/2018 12:45 PM EDT documented in this encounter Patient Instructions * Patient Instructions* Mike Perez III, MD - 01/04/2018 1:00 PM EDT I think that your neurological examination is stable. We will repeat an MRI scan of her brain in March and I will call you with the results. I agree with Dr. Collado about switching from baclofen to tizanidine. I recommend trying this on aweekend as it can have similar side effects to the baclofen. If you note feeling abnormally tired and we can try other medications so please do not hesitate to call us. We talked about different symptoms that may be consistent with an MS relapse. I recommend looking at the National MS Society website for more patient information about MS and MS relapses. We will be having an MS educational day for since on March 24. You will be receiving more information in the mail. I like to see you back in clinic in another 3-4 months to see how you are doing. Mike Perez III, MD [employer] Multiple Sclerosis [place] Department of Neurology [facility] [place] [address] documented in this encounter Progress Notes * Mike Perez III, MD - 01/04/2018 1:00 PM EDT Multiple Sclerosis Center [facility] Follow-Up Visit Dear Nadine Mcduffie MD, I saw Aria Figueroa in clinic today in follow-up for multiple sclerosis. She was unaccompanied at today's visit. Below is my progress note with impression and plan. Please do not hesitate to call with any questions. Appointment time: 1:08-1:40 (total 32 minutes) DISEASE SUMMARY: Principal neurologic diagnosis: MS Diagnosis of MS: 2018 - onset possibly in 2014 CSF: 8 oligoclonal bands, elevated IgG index and IgG synthesis rate Disease course at onset: relapsing Current disease course: relapsing Relapses: 10/2016 - R arm myoclonic jerks 2015 - R thigh numbness (possible relapse) EDSS: 2.5 MS Severity Score (EDSS and Disease Duration): 6.04 MSIS-29: 103, last 84 in 08/2017 Treatment History Previous disease therapies: n/a Current disease therapies: Copaxone (10/2017) Imaging History Most recent MRI brain: 06/2017 Most recent MRI cervical spine: 09/21/2017 Most recent MRI thoracic spine: 09/21/2017 Interval History: Aria Figueroa was last seen in clinic on 09/21/2017 at times time we discussed starting a MS relapse reducing immunotherapy. After long discussion we decided to start Copaxone 40 mg 3 times weekly.She is started on Copaxone in mid to late October. She is tolerating the injections with mild site injection reactions. She denies any new neurological symptoms at today's appointment. She tried the baclofen after her last appointment but did not tolerate due to excessive sedation. She was seen by Dr. Collado last week who recommended a trial of tizanidine. She has not yet started tizanidine. Overall she is doing remarkably well. She continues to have tremor in her right upper extremity buther right upper extremity jerks seem to have improved. She denies any significant bowel or bladder symptoms, vision changes, or changes in her balance. She reports doing well at work. Her mood is okay and this is something that she has been working on. Current Medications: reviewed and updated in EMR Review of Systems A ROS was obtained, reviewed with the patient. Pertinent positives and negatives were included in the HPI. Physical Examination Most Recent Vitals: 01/04/18 1245 BP: 130/65 Pulse: 76 Hair, skin, nails, and joints were normal. [...] No myoclonic jerk. ?? Upper extremities (R/L) Digital Media Producer 5/5 Finger abduction 5/5 Finger extension 5/5 Wrist extension 5/5 Elbow flexion 5/5 Elbow extension 5/5 Shoulder abduction 5/5 ?? Lower extremities (R/L) Hip flexion 5/5 Knee extension 5/5 Knee flexion 5/5 Ankle plantarflexion 5/5 Ankle dorsiflexion 5/5 ?? Deep tendon reflexes: Biceps 3+/2+ Triceps 2+/2+ Knees 2+/2+ Ankles 2+/2+ ?? Temperature sensation was intact and symmetric in all distal extremities. Vibratory sensation was slightly reduced at the toes to about 10-12 seconds. Negative Romberg. ?? No dysmetria with [id number] testing bilaterally. Finger tapping was rapid and accurate bilaterally. ?? Standard gait was normal. She was able to tandem walk and hop on either foot. Timed 25-foot walk (sec): 4.0 (last 3.9 on 09/07/2017) Assistive device: none. REVIEW OF IMAGING STUDIES: no new imaging Assessment: ICD-10-CM 1. Multiple sclerosis G35 MRI Brain wwo Contrast (Generic) Aria Figueroa is a 37 y.o. woman with recently (09/07/2017) diagnosed relapsing MS without activity or progression on Copaxone. She is tolerating Copaxone with mild site injections. Symptom alvarado she will try tizanidine as recommended by Dr. Collado. I counseled her on the fact that this can also cause sedation and recommended starting this dosing on a weekend. I continue to encourage her to exercise on a routine basis. Treatment Plan: 1. Continue Copaxone 2. Agree with trial of tizanidine; stopping baclofen 3. Regular exercise Diagnostic/Monitoring Plan: 1. Plan for repeat MRI brain in March Follow-up: 3-4 mo Thank you for allowing us to participate in [facility]. If you have questions or concerns please do not hesitate to call our clinic at [phone]. Mike Perez III, MD Ware[employer] Laborer of Neurology Multiple Sclerosis Center [facility] A total of 20 minutes of this 32 minute [id number] interaction was spent in counseling on diagnosis, prognosis, and medication and symptom management. 1:55 PM 01/05/2018 documented in this encounter Plan of Treatment Not on file documented as of this encounter Results * [...] sclerosis documented in this encounter Care Teams Ophthalmic Technician Relationship Specialty Start Date End Date Nadine Mcduffie MD [address] [place] [address] PCP - General Family Medicine 03/27/17 documented as of this encounter
--- OUTSIDE RECORDS SUMMARY | 2024-05-22 19:43 | XMS_ITS | Encounter Summary ---
Author Organization [facility]ly [facility] [place] [address] Care Team Providers Care Draw Frame Operator Name Role Phone Nadine Mcduffie MD Primary Care Provider [phone] Encounter Details Date Type Department Care Team (Latest Contact Info) Description 01/11/2018 10:30 AM EDT Procedure [place] [address] Jaleel Robledo MD [facility] [place] [address] Numbness and tingling in right hand; Numbness and tingling of right arm Social History Tobacco Use Types Packs/Day Years [...] Sign Reading Time Taken Comments Blood Pressure 119/72 01/11/2018 9:52 AM EDT Pulse 72 01/11/2018 9:52 AM EDT Temperature - - Respiratory Rate - - Oxygen Saturation - - Inhaled Oxygen Concentration - - Weight 110 kg (242 lb 9.6 oz) 01/11/2018 9:52 AM EDT Height 165.1 cm (5' 5) 01/11/2018 9:52 AM EDT r eported Body Mass Index 40.37 01/11/2018 9:52 AM EDT documented in this encounter Progress Notes * Jaleel Robledo MD - 01/11/2018 10:30 AM EDT EDX studies done at the request of Drs. Collado. Report to be scanned. The right median and ulnar sensory and motor studies are within normal limits. EMG of right upper extremity including deltoid, bicep, tricep, FDI, and APB showed no active denervation and normal motor unit action potentials. Tremor activity noted on EMG. Assessment: EMG nerve conduction studies are normal and do not demonstrate electrodiagnostic evidence of right median neuropathy, right ulnar neuropathy, or right cervical radiculopathy. documented in this encounter Plan of Treatment Not on file documented as of this encounter Visit Diagnoses Diagnosis Numbness and tingling in right hand Disturbance of skin sensation Numbness and tingling of right arm Disturbance of skin sensation documented in this encounter Care Teams Draw Frame Operator Relationship Specialty Start Date End Date Nadine Mcduffie MD [address] [place] [address] PCP - General Family Medicine 03/27/17 documented as of this encounter
--- OUTSIDE RECORDS SUMMARY | 2024-05-22 19:43 | XMS_ITS | Encounter Summary ---
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 Rubin Lanza MD [facility] [place] [address] [address] Referral ID Status Reason Start Date Expiration Date V isits Requested Visits Authorized [id number] Closed Consult, Test & Treat 07/20/2017 01/16/2018 1 1 Reason for Visit * Reason Comments Pre-op Exam Encounter Details Date Type Department Care Team (Latest Contact Info) Description 07/18/2017 3:30 PM EST Office Visit Obstetrics [place] [address] Rubin Lanza MD [facility] [place] [address] 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; Displacement of intrauterine contraceptive device, subsequent encounter; Preop examination Social History Tobacco Use Types Packs/Day Years [...] Sign Reading Time Taken Comments Blood Pressure 127/67 07/18/2017 3:33 PM EST Pulse 80 07/18/2017 3:33 PM EST Temperature 36.9 ??C (98.4 ??F) 07/18/2017 3:33 PM ES T Respiratory Rate - - Oxygen Saturation 99% 07/18/2017 3:33 PM EST Inhaled Oxygen Concentration - - Weight 106.9 kg (235 lb 11.2 oz) 07/18/2017 3:33 PM EST Height 163.8 cm (5' 4.5) 07/18/2017 3:33 PM EST Body Mass Index 39.83 07/18/2017 3:33 PM EST documented in this encounter Progress Notes * Rubin Lanza MD - 07/18/2017 3:30 PM EST GYNECOLOGY PRE-OPERATIVE ASSESSMENT Date of Visit: 07/18/2017 Planned Procedure: HPI: Aria Figueroa is a 36 y.o. female here in preoperative consultation. Has embedded Paragard IUD that she wishes to be removed. Hoping for conception, but has had vasectomy, so desires referral to infertility services. REVIEW OF SYSTEMS/FUNCTIONAL STATUS: Review of Systems - Negative except myoclonus Bleeding disorder (h/o nose bleeds, excessive bleeding following a surgical procedure?): no Personal or Family history of blood clots?: [X] No Patient's last menstrual period was 07/08/2017 (approximate). Contraception: NA Past anesthesia problems?:[X] Yes - has been told that myoclonus may be secondary to hypoxic event during prior surgery HISTORY [facility] history and paps: 2010 NILM OB History Para Term AB Living 1 1 SAB TAB Ectopic Multiple Live Births Patient Active Problem List Diagnosis Code ??? Anxiety F41.9 ??? Hypothyroidism E03.9 ??? Obesity (BMI 30-39.9) E66.9 ??? Abnormal MRI R93.8 ??? 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 Tobacco use disorder, moderate, in early remission F17.201 Past Medical History: Diagnosis Date ??? Anxiety 02/16/2011 ??? Gallstone ??? Hypothyroidism 04/11/2011 ??? Varicella Past Surgical History: Procedure Laterality Date ??? CHOLECYSTECTOMY, LAPAROSCOPIC 2015 FAMILY HISTORY family history includes Aneurysm in her father; Cancer in her paternal aunt and paternal grandfather; Cerebrovascular Accident in her father; Heart Disease in her father; High Cholesterol in her mother. SOCIAL HISTORY Social History Occupational History ??? Not on file. Social History Main Topics ??? Smoking status: Current Every Day Smoker Packs/day: 1.00 Years: 15.00 Types: Cigarettes Last attempt to quit: 04/11/2009 ??? Smokeless tobacco: Never Used Comment: wants to quit, has tried the patch ??? Alcohol use No ??? Drug use: Yes Special: Marijuana Comment: marijuana ??? Sexual activity: Yes Partners: Male reports that she has been smoking Cigarettes. She has a 15.00 pack-year smoking history. She has never used smokeless tobacco. She reports that she uses illicit drugs, including Marijuana. She reports that she does not drink alcohol. Allergies Allergen Reactions ??? Hydrocodone-Acetaminophen mood lability ??? Sulfa (Sulfonamide Antibiotics) edema ??? Penicillins Rash Outpatient Prescriptions Marked as Taking for the 07/18/17 encounter (Office Visit) with Rubin Lanza MD Medication Sig Dispense Refill ??? lamoTRIgine (LAMICTAL) 25 mg Tablet Increase by 50mg each week to goal of 150mg BID. Patient has titration schedule 360 tablet 12 ??? levothyroxine (SYNTHROID) 75 mcg Tablet take 1 tablet by mouth once daily ON AN EMPTY STOMACH 0 ??? venlafaxine (EFFEXOR-XR) 150 mg Capsule, Sust. Release 24 hr Take 1 capsule by mouth daily. [id number] to total 225mg daily - may substitute 3x75mg, 150+75mg, or 225mg tablet daily (Patient taking differently: Take 150 mg by mouth daily.) 90 capsule 3 ??? chlorhexidine (HIBICLENS) 4 % Liquid Wash affected areas once weekly as needed. 120 mL 1 Wt Readings from Last 3 Encounters: 07/21/17 106.9 kg (235 lb 9.6 oz) 07/18/17 106.9 kg (235 lb 11.2 oz) 06/27/17 (!) 107.5 kg (237 lb) Body mass index is 39.83 kg/(m^2). Most Recent Vitals: 07/18/17 1533 BP: 127/67 Pulse: 80 Temp: 36.9 ??C (98.4 ??F) SpO2: 99% Physical Exam: Gen: appears well, NAD Skin:non-diaphoretic, without rash/lesions Neurological: She is alert and oriented to person, place, and time. Psychiatric: Affect is appropriate. HEENT: Normocephalic. Anicteric, normal scleral and conjunctivae. Neck is supple without thyromegaly or lymphadenopathy Lungs were clear to auscultation bilaterally. Heart regular rate and rhythm without murmurs or gallops. The abdomen was soft, non-tender, and without guarding or rebound. No masses or organomegaly. Examination of the extremities revealed no cyanosis, clubbing or edema. Pelvic Exam: Nl vulva without lesions Nl vagina. Cervix appears normal with IUD strings visible. Attempt was made to remove IUD with longKelly. Strings were removed but IUD did not move. Lab/ Radiology Review Results for orders placed or performed in visit on 05/31/17 RAEANN Result Value Ref Range RAEANN Neg Neg Cardiolipin Antibody Screen Result Value Ref Range Cardiolipin IgG <23 <=22 GPL unit(s) Cardiolipin IgM <11 <=10 MPL unit(s) Ceruloplasmin Result Value Ref Range Ceruloplasmin 31.5 16.0 - 45.0 mg/dL Comprehensive metabolic panel (non-fasting) Result Value Ref Range Glucose Lvl 114 65 - 199 mg/dL BUN 11 8 - 18 mg/dL Creatinine 0.82 0.70 - 1.20 mg/dL Sodium 139 135 - 145 mmol/L Potassium 3.7 3.5 - 5.0 mmol/L Chloride 100 98 - 107 mmol/L CO2 25 22 - 31 mmol/L Anion Gap 14 5 - 15 mmol/L Calcium 8.8 8.5 - 10.5 mg/dL Total Protein 7.4 6.1 - 8.0 gm/dL Albumin 3.9 3.2 - 5.2 gm/dL AST 18 0 - 30 unit/L ALT 28 0 - 30 unit/L Alk Phos 69 40 - 104 unit/L Total Bilirubin 0.3 0.2 - 1.3 mg/dL Estimated GFR >60 >=60 Extractable Nuclear Antigen (MICHAEL) Ab Result Value Ref Range MICHAEL Ab Test Result Flag Unit RefValue Ab to Extractable Nuclear Ag Eval,S SS-A/Ro Ab, IgG, S <0.2 U <1.0 (Negative) SS-B/La Ab, IgG, S <0.2 U <1.0 (Negative) Sm Ab, IgG, S <0.2 U <1.0 (Negative) MEDICAL BILLING CODER Ab, IgG, S <0.2 U <1.0 (Negative) Scl 70 Ab, IgG, S <0.2 U <1.0 (Negative) Joan 1 Ab, IgG, S <0.2 U <1.0 (Negative) Test Performed by: [facility] - [address] [address] Ferritin Result Value Ref Range Ferritin 199 (H) 15 - 150 ng/mL TSH Result Value Ref Range TSH 1.75 0.27 - 4.20 mlU/ML T4, free Result Value Ref Range Free T4 1.02 0.93 - 1.70 ng/dL Calcium, Ionized, Serum Result Value Ref Range ICA serum 1.14 (L) 1.15 - 1.33 mmol/L Vitamin B12 Result Value Ref Range Vitamin B-12 413 232 - 1245 pg/mL Lyme IgG & IgM Antibody Result Value Ref Range Lyme Antibody Neg Neg Factor 5 Mut Result Value Ref Range Factor V Leiden Negative Factor V Leiden Interp RESULT: NEGATIVE FOR THE c.1601G>A variant (Factor V Leiden) INTERPRETATION: The negative finding indicates that this patient is not at increased risk of venous thrombosis resulting from a variant Factor V associated activated protein C resistance. Factor V Leiden (c.1601G>A) is most commonly found in persons with Northern ancestry, and is extremely rare in persons that have not acquired a variant allele. Other causes of venous thromboembolic disease and activated protein C resistance are not excluded. Clinical correlation is recommended. METHOD: The Coagulation Factor V gene (F5) variant, c.1601G>A (NM_000130.4) [[id number] (NP_000121.2) ([id number]; commonly Factor V Leiden or [id number])], is interrogated using a TaqMan allelic discrimination assay. Genomic DNA was isolated from the submitted peripheral blood specimen. Real-time PCR was performed to amplify a short region spanning the variant site, and genotyping was performed by allelic discrimination using a mixture of fluorescently labeled probes, one of which is specific for the reference sequence, the other specific for the variant gene. This test was developed and its performance characteristics determined by the [facility] at [facility] It has not been cleared or approved by the FDA. The laboratory is regulated under CLIA as qualified to perform high-complexity testing. This test is used for clinical purposes. It should not be regarded as investigational or for research. Hemogram Result Value Ref Range WBC 12.5 (H) 4.0 - 9.5 x10(3)/mcL RBC 4.93 4.00 - 5.21 x10(6)/mcL Hemoglobin 14.5 11.7 - 15.5 gm/dL Hematocrit 42.8 35.7 - 45.8 % MCV 86.8 82.6 - 94.4 fL MCH 29.4 27.1 - 32.0 pg MCHC 33.9 31.7 - 35.0 gm/dL Platelets 273 145 - 357 x10(3)/mcL RDWSD 40.0 37.0 - 46.0 fL RDWCV 12.5 11.5 - 14.1 % MPV 10.6 7.6 - 12.9 fL nRBC % Auto 0.0 % nRBC Abs Auto 0.000 0.000 - 0.000 x10(3)/mcL Differential, Automated Result Value Ref Range Neutrophils % 69.1 % Neutr Abs (ANC) 8.61 (H) 1.70 - 6.10 x10(3)/mcL Lymphocytes % 20.6 % Lymphocytes Abs 2.6 0.9 - 3.2 x10(3)/mcL Monocytes % 6.5 % Monocyte Abs 0.8 0.3 - 0.9 x10(3)/mcL Eosinophils % 2.8 % Eosinophils Abs 0.4 0.0 - 0.4 x10(3)/mcL Basophils % 0.6 % Basophils Abs 0.1 0.0 - 0.1 x10(3)/mcL Immature Gran % 0.40 % Janice Gran Abs 0.05 (H) 0.00 - 0.04 x10(3)/mcL Pelvic US 07/20/17 IMPRESSION Malpositioned IUD with the IUD seen extending from the lower uterine segmentinto the cervix. The tip of the IUD appears to extend into the wall of thecervix. The right arm is now positioned within the myometrium. The left arm maypossibly also extend into the myometrium.I have personally reviewed the image(s) and the residents interpretation andagree with the findings, ASSESSMENT: 36 y.o. female seen today in preoperative consultation for retained Paragard IUD. PLAN: ??? We will proceed with the above procedures ??? Anesthesia preference: per anesthesia ??? Medications and herbal preparations reviewed Discussed: (X) Discontinuation of all herbal preparations, vitamin E 7-10 days preop (X) ASA, NSAIDS, Plavix: ?? (x) Discontinue Solid foods at midnight ??? (X) Clear liquids (water, apple juice, martha navneet, or black coffee) may be consumed until 2 hours prior to scheduled procedure. Informed consent: was not obtained - ran out of time. Will do on day of procedure. ACUTE OPIOID CONSENT AND RISK ASSESSMENT: No flowsheet data found. Opioid Risk Tool Female Male 1. Family history of Substance Abuse Alcohol [] 1 [] 3 Illegal Drugs [] 2 [] 3 Prescription Drugs [] 4 [] 4 2. Personal History of Substance Abuse Alcohol [] 3 [] 3 Illegal Drugs [] 4 [] 4 Prescription Drugs [] 5 [] 5 3. Age (ham box if 16-45) [x] 1 [] 1 4. History of Preadolescent Sexual Abuse [] 3 [] 0 5. Psychological Disease Attention Deficit Disorder, Obsessive Compulsive D/o, Bipolar, Schizophrenia [] 2 [] 2 Depression [] 1 [] 1 TOTAL: Opioid Risk Category: low risk 0-3 Comments about ORT in relation to this patient: I discussed the plan for acute post-operative pain management with the patient, including the use of non-narcotic medications, heat, and supportive measures. The patient did not sign the [facility] acute narcotic consent form in anticipation of typical post-operative opioid therapy for approximately 0 days. 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
--- OUTSIDE RECORDS SUMMARY | 2024-05-22 19:43 | XMS_ITS | Encounter Summary ---
[place] [address] Care Team Providers Care Credit Professional Name Role Phone Nadine Mcduffie MD Primary Care Provider [phone] Reason for Referral * Diagnostic Test (Routine) - Closed Specialty Diagnoses / Procedures Referred By Tonia argueta Referred To Contact Radiology Diagnoses Cerebral infarction, unspecified mechanism Procedures CT [place] w Contrast (Generic) Brianna Collado MD [facility] [place] [address] [facility] [place] [address] Referral ID Status Reason Start Date Expiration Date V isits Requested Visits Authorized [id number] Closed Specialty Service Requested 06/08/2017 06/08/2018 1 1 Encounter Details Date Type Department Care Team (Late st Contact Info) Description 06/08/2017 Orders [place] [address] Brianna Collado MD [facility] [place] [address] Cerebral infarction, unspecified mechanism Social History Tobacco Use Types Packs/Day Years [...] documented as of this encounter Results * CT [place] w Contrast (Generic) (06/14/2017 3:46 PM EST) Anatomical Region Laterality Modality Neck, Head Computed Tomogra phy Impressions 06/14/2017 5:10 PM EST No vascular abnormalities identified on CTA head. Preliminary report signed by: Sandro Abraham at 06/14/2017 5:09 PM I have personally reviewed the image(s) and the residents interpretation and agree with the findings, Doron Solano at 06/14/2017 5:10 PM Narrative 06/14/2017 5:10 PM EST EXAMINATION: CT [place] W CONTRAST (GENERIC) CLINICAL HISTORY: infarct on recent MRI brain, young patient TECHNIQUE: CTA [place] after administration of 65 cc intravenous Omnipaque 350. MIPS and 3-D reformatted images were reconstructed at separate workstation. COMPARISON: MRI brain 05/18/2017. FINDINGS: Vertebral and basilar arteries: The vertebral and basilar arteries are patent and normal in caliber. Posterior cerebral arteries: The posterior cerebral arteries are patent and normal in caliber. The posterior communicating arteries are present bilaterally. Middle and anterior cerebral arteries: The middle and anterior cerebral arteries are patent and normal in caliber. The anterior communicating artery is patent. Nonvascular findings: No hemorrhage or extra-axial fluid collection. No mass, mass effect or midline shift. The ventricles are symmetric and normal in caliber. The basal cisterns are patent. Procedure Note Doron Solano MD - 06/14/2017 EXAMINATION: CT [place] W CONTRAST (GENERIC) CLINICAL HISTORY: infarct on recent MRI brain, young patient TECHNIQUE: CTA [place] after administration of 65 cc intravenous [id number]. MIPS and 3-D reformatted images were reconstructed at separateworkstation. COMPARISON: MRI brain 05/18/2017. FINDINGS: Vertebral and basilar arteries: The vertebral and basilar arteries arepatent and normal in caliber. Posterior cerebral arteries: The posterior cerebral arteries are patentand normal in caliber. The posterior communicating arteries are presentbilaterally. Middle and anterior cerebral arteries: The middle and anterior cerebralarteries are patent and normal in caliber. The anterior communicating artery ispatent. Nonvascular findings: No hemorrhage or extra-axial fluid collection. [place], mass effect or midline shift. The ventricles are symmetric and normal in caliber. The basal cisterns are patent. IMPRESSION No vascular abnormalities identified on CTA head. Preliminary report signed by: Sandro Abraham at 06/14/2017 5:09 PM I have personally reviewed the image(s) and the residents interpretationand agree with the findings, Doron Solano at 06/14/2017 5:10 PM Brianna Collado MD IMG CT ORDERABLES documented in this encounter Visit Diagnoses Diagnosis Cerebral infarction, unspecified mechanism Cerebral infarction, unspecified mechanism documented in this encounter Care Teams Credit Professional Relationship Specialty Start Date End Date Nadine Mcduffie MD [address] [place] [address] PCP - General Family Medicine 03/27/17 documented as of this encounter
--- OUTSIDE RECORDS SUMMARY | 2024-05-22 19:43 | XMS_ITS | Encounter Summary ---
[place] [address] Care Team Providers Care Raw Scales Operator Name Role Phone Nadine Mcduffie MD Primary Care Provider [phone] Encounter Details Date Type Department Care Team ([facility] Contact Info) Description 05/31/2017 Orders Only [place] [address] Preston Collins Social History Tobacco Use Types Packs/Day Years [...] on filedocumented in this encounter Care Teams Raw Scales Operator Relationship Specialty Start Date End Date Nadine Mcduffie MD [address] [place] [address] PCP - General Family Medicine 03/27/17 documented as of this encounter
--- OUTSIDE RECORDS SUMMARY | 2024-05-22 19:43 | XMS_ITS | Encounter Summary ---
Author Organization [facility] [place] [address] Care Team Providers Care Mercury Recoverer Name Role Phone Nadine Mcduffie MD Primary Care Provider Reason for Visit * Reason Onset Date Comments Medication Refill 09/25/2017 Encounter Details Date Type Department Care Team (Late st Contact Info) Description 09/25/2017 [place] [address] Mike Perez III, MD [facility] [place] [address] Social History Tobacco Use Types Packs/Day Years [...] on filedocumented in this encounter Care Teams Mercury Recoverer Relationship Specialty Start Date End Date Nadine Mcduffie MD [address] [place] [address] PCP - General Family Medicine 03/27/17 documented as of this encounter
--- OUTSIDE RECORDS SUMMARY | 2024-05-22 19:43 | XMS_ITS | Encounter Summary ---
[place] [address] Care Team Providers Care Event Operations Manager Name Role Phone Nadine Mcdfufie MD Primary Care Provider [phone] Encounter Details Date Type Department Care Team ([facility] st Contact Info) Description 07/28/2017 11:59 PM EST Anesthesia Event [place] [address] Kirsten Ramirez, FLOOR MECHANIC [address] [facility] [id number] [place] [address] Anesthesia Record Procedure Summary Procedure Name Responsible Anesthesiologist Anesthesia Start Time Anesthesia Stop Time REMOVAL IUD, VAGINAL APPROACH (WRVU 1.27) (Uterus) Events No events on file. Meds * Agents No agents on file. * Blood No blood administrations on file. Lines, Drains, and Airways No LDAs on file. documented in this encounter Social History Tobacco Use Types Packs/Day Years [...] on file documented as of this encounter OR Notes * Anesthesia Preprocedure Evaluation - Ramirez, Kirsten L, FLOOR MECHANIC - 07/21/2017 10:53 AM EST Pre-Anesthesia Evaluation for: Aria Figueroa a 36 y.o. female. Procedure(s): REMOVAL IUD, VAGINAL APPROACH (WRVU 1.27) Patient Active Problem List Diagnosis ??? Tobacco use disorder, moderate, in early remission Quit early Jul 2017, using nicotine patch. ??? Abnormal MRI ??? Myoclonus ??? Obesity (BMI 30-39.9) ??? Hypothyroidism ??? Anxiety Past Medical History: Diagnosis Date ??? Anxiety 02/16/2011 ??? Gallstone ??? Hypothyroidism 04/11/2011 ??? Varicella Past Surgical History: Procedure Laterality Date ??? CHOLECYSTECTOMY, LAPAROSCOPIC 2015 Social History Substance Use Topics ??? Smoking status: Current Every Day Smoker Packs/day: 1.00 Years: 15.00 Types: Cigarettes Last attempt to quit: 04/11/2009 ??? Smokeless tobacco: Never Used Comment: wants to quit, has tried the patch ??? Alcohol use No History Drug Use ??? Yes ??? Special: Marijuana Comment: marijuana Allergies Allergen Reactions ??? Hydrocodone-Acetaminophen mood lability ??? Sulfa (Sulfonamide Antibiotics) edema ??? Penicillins Rash Medications: MAR and/or home medications have been reviewed. Physical Exam: There were no vitals filed for this visit. There is no height or weight on file to calculate BMI. Airway Assessment: Mallampati: I TM distance: >3 FB Neck ROM: full Cardiovascular Assessment: Rhythm: regular Rate: normal Pulmonary Assessment: breath sounds clear to auscultation Dental Assessment: Comment: Denies loose teeth. Misc Assessment: Other exam findings: Alert, pleasant, obese, articulate. Several minutes into our visit, she developed myoclonic jerks of the right upper extremity. Anesthesia Plan PAT Staff Documentation: Reason for PAT Contact: Patient Request Hx of Anesthesia Problem: Denies. Was Patient Seen in [facility]? Yes Additional/Outside Data Requested? Yes (Anesthesia record from nasim monzon at [facility] in ~ 2015.) Findings, Assessment and Action: Ms. Figueroa is a 36 y.o. year old female seen in [facility] prior to planned IUD removal with Dr. Helen Aguilar. Pre-op OSC questionnaire was reviewed. Notable responses include: Snores. Pertinent PMH includes: Myoclonic jerks of the right arm in the setting of brain abnormality on MRI; hypothyroidism; smoker, active phase of quitting; obesity (BMI 40); anxiety (venlafaxine). ROS: Denies chest pain, palpitations. Denies SOB, cough, wheezing. GERD sx only with dietary indiscretions. Exercise tolerance is moderate. 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 She is independent with self-care activities, can ascend 1 FOS without undue OLGUIN and keeps up with diet supervisor on the weekends. I commended her on her efforts thus far quitting smoking. She had been smoking 1 ppd and is using a21 mg nicotine patch with good relief. She explained that she is apprehensive about having anesthesia as she has no other explanation for the brain abnormality seen on MRI other than having GA for an emergent lap nicolás several years ago. She said her preference is to be comfortable but awake. She does not want GA and understands she does not need a spinal. I assured her that she would have the opportunity to speak with her anesthesiologist the morning ofthe surgery regarding the specific plan for anesthesia. She was comfortable with this plan. Kirsten Ramirez APRN Pre-Admission Testing [phone] documented in this encounter Plan of Treatment Not on file documented as of this encounter Visit Diagnoses Not on filedocumented in this encounter Care Teams Event Operations Manager Relationship Specialty Start Date End Date Nadine Mcduffie MD [address] [place] [address] PCP - General Family Medicine 03/27/17 documented as of this encounter
--- OUTSIDE RECORDS SUMMARY | 2024-05-22 19:43 | XMS_ITS | Encounter Summary ---
[place] [address] Care Team Providers Care Military Analyst Name Role Phone Nadine Mcduffie MD Primary Care Provider [phone] Reason for Visit * Diagnostic Test (Routine) - Closed Specialty Diagnoses / Procedures Referred By Tonia argueta Referred To Contact Radiology Diagnoses Abnormal MRI Myoclonus Procedures MRI Brain wwo Contrast (Generic) MRI Brain w Contrast Brianna Collado MD [facility] [place] [address] [place] [address] Referral ID Status Reason Start Date Expiration Date V isits Requested Visits Authorized [id number] Closed Specialty Service Requested 06/08/2017 09/28/2017 1 1 Encounter Details Date Type Department Care Team (Latest Contact Info) Description 06/14/2017 2:53 PM EST - 06/14/2017 2:59 PM EST Hospital [place] [address] Brianna Collado MD [facility] [place] [address] Discharge Disposition: Home Social History [...] Refills Start Date End Date levothyroxine (SYNTHROID) 75 mcg Tablet take 1 tablet by mouth once daily ON AN EMPTY STOMACH 0 05/15/2017 09/21/2017 busPIRone (BUSPAR) 10 mg Tablet TAKE 1 TABLET BY MOUTH TWICE DAILY NEEDED FOR ANXIETY 0 06/03/2017 06/27/2017 levETIRAcetam (KEPPRA) 250 mg Tablet Take 2 tablets by mouth 2 times daily. 60 tablet 5 06/13/2017 06/27/2017 venlafaxine (EFFEXOR-XR) 150 mg Capsule, Sust. Release 24 hrIndications:Anxiety Take 1 capsule by mouth daily. Add 75mg to total 225mg daily - may substitute 3x75mg, 150+75mg, or 225mg tablet daily 90 capsule 3 05/11/2015 07/27/2018 chlorhexidine (HIBICLENS) 4 % LiquidIndications:Fol liculitis Wash affected areas once weekly as needed. 120 mL 1 11/26/2014 01/23/2020 documented as of this encounter Plan of Treatment Not on file documented as of this encounter Procedures Procedure Name Priority Date/Time Associated Diagnosis Comments MRI BRAIN WWO CONTRAST (GENERIC) Routine 06/14/2017 5:19 PM EST Abnormal MRI Myoclonus documented in this encounter Results * MRI Brain wwo Contrast (Generic) (06/14/2017 5:19 PM EST) Anatomical Region Laterality Modality Head Magnetic Resonan ce Impressions 06/14/2017 6:02 PM EST Unchanged area of signal abnormality around the left central sulcus. No enhancement, or new area of abnormal signal. Narrative 06/14/2017 6:02 PM EST EXAMINATION: MRI BRAIN WWO CONTRAST (GENERIC) CLINICAL HISTORY: additional contrast image needed in patient with T2 abnormality on recent study TECHNIQUE: MR of the brain performed prior to and following intravenous administration of 20 mL Dotarem. COMPARISON: MR 05/18/2017 FINDINGS: The area of T2 prolongation in parenchymal volume loss involving the left pre and postcentral gyrus is unchanged in appearance or extent compared to the prior exam. There is some associated susceptibility related signal loss in the cortex, which may represent old blood products. There is no abnormal enhancement. No new area of abnormal signal identified. Small areas of T2 signal alteration in the white matter in the right frontal lobe are unchanged. There is no abnormal enhancement elsewhere. Major intracranial flow voids are normal. There is no restricted diffusion. Procedure Note Doron Solano MD - 06/14/2017 EXAMINATION: MRI BRAIN WWO CONTRAST (GENERIC) CLINICAL HISTORY: additional contrast image needed in patient with T2 abnormality on recent study TECHNIQUE: MR of the brain performed prior to and following intravenous administration of 20 mL Dotarem. COMPARISON: MR 05/18/2017 FINDINGS: The area of T2 prolongation in parenchymal volume loss involvingthe left pre and postcentral gyrus is unchanged in appearance or extentcompared to the prior exam. There is some associated susceptibility related signalloss in the cortex, which may represent old blood products. There is no abnormal enhancement. No new area of abnormal signal identified. Small areas of A6iebwlo alteration in the white matter in the right frontal lobe are unchanged.There is no abnormal enhancement elsewhere. Major intracranial flow voids arenormal. There is no restricted diffusion. IMPRESSION Unchanged area of signal abnormality around the left central sulcus. No enhancement, or new area of abnormal signal. Brianna Collado MD [facility] MRI ORDERABLES documented in this encounter Visit Diagnoses Not on filedocumented in this encounter Administered Medications Inactive Administered Medications - up to 3 most recent administrations Medication Order MAR Action Action Date Dose Rate Site gadoterate meglumine (DOTAREM) 0.5 mmol/mL injection 0-20 mL/kg 0-20 mL/kg/dose, Intravenous, ONCE PRN, 1 dose, Starting on Mon06/14/17 at 1634, Until Mon06/14/17 at 1657, Per Protocol, Radiology Contrast, Routine Given 06/14/2017 4:57 PM EST 20 mLs documented in this encounter Care Teams Military Analyst Relationship Specialty Start Date End Date Nadine Mcduffie MD [address] [place] [address] PCP - General Family Medicine 03/27/17 documented as of this encounter
--- OUTSIDE RECORDS SUMMARY | 2024-05-22 19:43 | XMS_ITS | Encounter Summary ---
Author [facility] [place] [address] Care Team Providers Care Beater Dumper Name Role Phone Nadine Mcduffie MD Primary Care Provider [phone] Reason for Visit * Reason Onset Date Comments Other 06/08/2017 Encounter Details Date Type Department Care Team ([facility] Contact Info) Description 06/08/2017 Telephone [place] [address] Brianna Collado MD [facility] [place] [address] Other Social History Tobacco Use Types Packs/Day [...] Telephone Encounter - Emily Phelps RN - 06/09/2017 8:44 AM EST Brianna Collado MD to Me ?? 06/08/17 3:22 PM I called and left the patient a message that her EEG and labs were normal. I also added on a CTA head to hopefully be done at the time of her MRI brain with contrast. I told her to call if she would like to try a medication for symptomatic management while we are still performing her work up with imaging. I will likely start her on keppra if she wants to try something. 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 * Telephone Encounter - Emily Phelps RN - 06/08/2017 2:45 PM EST Call placed to patient and left message informing her that this will be sent to Dr Collado for review and she will be called when the results are available. * Telephone Encounter - Dania Olivas - 06/08/2017 12:59 PM EST Caller: Aria If not Pt / Relation to pt: Best time to reach caller: anytime after 5:00pm Before 2:30pm - Informed caller that nurse will call back by the end of the day Best number to reach caller: [phone] Reason for call: Lab/Test results: Results being requested: EEG Where were tab/test done: [facility] When were lab/test done: 06/01/17 Disposition of Call: routine message to nurse documented in this encounter Plan of Treatment Not on file documented as of this encounter Visit Diagnoses Not on filedocumented in this encounter Care Teams Beater Dumper Relationship Specialty Start Date End Date Nadine Mcduffie MD [address] [place] [address] PCP - General Family Medicine 03/27/17 documented as of this encounter
--- OUTSIDE RECORDS SUMMARY | 2024-05-22 19:43 | XMS_ITS | Encounter Summary ---
[place] [address] Care Team Providers Care Refrigeration Service Inspector Name Role Phone Nadine Mcduffie MD Primary Care Provider [phone] Reason for Referral * Diagnostic Test (Routine) - Closed Specialty Diagnoses / Procedures Referred By Contac t Referred To Contact Radiology Diagnoses Cerebral infarction, unspecified mechanism Procedures CT [place] w Contrast (Generic) Brianna Collado MD [facility] [place] [address] [facility] [place] [address] Referral ID Status Reason Start Date Expiration Date V isits Requested Visits Authorized [id number] Closed Specialty Service Requested 06/08/2017 06/08/2018 1 1 Reason for Visit * Diagnostic Test (Routine) - Closed Specialty Diagnoses / Procedures Referred By Contnik t Referred To Contact Radiology Diagnoses Cerebral infarction, unspecified mechanism Procedures CT [place] w Contrast (Generic) Brianna Collado MD [facility] [place] [address] [facility] [place] [address] Referral ID Status Reason Start Date Expiration Date V isits Requested Visits Authorized [id number] Closed Specialty Service Requested 06/08/2017 06/08/2018 1 1 Encounter Details Date Type Department Care Team (Latest Contact Info) Description 06/14/2017 3:00 PM EST - 06/14/2017 11:59 PM EST Hospital Encounter CT Scan at [facility] [place] [address] Brianna Collado MD [facility] [place] [address] Cerebral infarction, unspecified mechanism Discharge Disposition: Home Social History Tobacco Use [...] Procedure Name Priority Date/Time Associated Diagnosis Comments CT [place] W CONTRAST Routine 06/14/2017 3:46 PM EST Cerebral infarction, unspecified mechanism documented in this encounter Results * CT [place] w Contrast (Generic) (06/14/2017 3:46 [...] Narrative 06/14/2017 5:10 PM EST EXAMINATION: CT [place] W CONTRAST (GENERIC) CLINICAL HISTORY: infarct on recent MRI brain, young patient TECHNIQUE: CTA [place] after administration of 65 cc [...] Doron Solano MD - 06/14/2017 EXAMINATION: CT [place] W CONTRAST (GENERIC) CLINICAL HISTORY: infarct on recent MRI brain, young patient TECHNIQUE: CTA [place] after administration of 65 cc intravenous [id number]. MIPS and 3-D reformatted images were reconstructed [...] Visit Diagnoses Diagnosis Cerebral infarction, unspecified mechanism documented in this encounter Administered Medications Inactive Administered Medications - up to 3 most recent administrations Medication Order MAR Action Action Date Dose Rate Site iohexol (OMNIPAQUE) 350 mg/mL solution 65 mL 65 mL, Intravenous, ONCE PRN, 1 dose, Starting on Mon06/14/17 at 1528, Until Mon06/14/17 at 1534, Per Protocol, Warning Vesicant/Irritant Medication , Routine Given 06/14/2017 3:34 PM EST 65 mLs documented in this encounter Care Teams Refrigeration Service Inspector Relationship Specialty Start Date End Date Nadine Mcduffie MD [address] [place] [address] PCP - General Family Medicine 03/27/17 documented as of this encounter
--- OUTSIDE RECORDS SUMMARY | 2024-05-22 19:43 | XMS_ITS | Encounter Summary ---
Author Organization [place] [id number] Care Team Providers Care Banquet Lead Name Role Phone Nadine Mcduffie MD Primary Care Provider [phone] Reason for Referral * Diagnostic Test (Routine) - Closed Specialty Diagnoses / Procedures Referred By Contac t Referred To Contact Radiology Diagnoses Multiple sclerosis Procedures MRI Thoracic Spine wwo Mike Young III, MD [facility] [place] [address] [place] [address] Referral ID Status Reason Start Date Expiration Date V isits Requested Visits Authorized [id number] Closed Specialty Service Requested 09/07/2017 09/07/2018 1 1 * Diagnostic Test (Routine) - Closed Specialty Diagnoses / Procedures Referred By Contac t Referred To Contact Radiology Diagnoses Multiple sclerosis Procedures MRI Cervical Spine wwMike Solis III, MD [facility] [place] [address] [place] [address] Referral ID Status Reason Start Date Expiration Date V isits Requested Visits Authorized [id number] Closed Specialty Service Requested 09/07/2017 09/07/2018 1 1 Reason for Visit * Consultation (Routine) - Closed Specialty Diagnoses / Procedures Referred By Tonia argueta Referred To Contact Neurology Diagnoses Multiple sclerosis Brianna Collado MD [facility] [place] [address] Mike Perez III, MD [facility] [place] [address] Referral ID Status Reason Start Date Expiration Date V isits Requested Visits Authorized [id number] Closed Consult, Test & Treat 08/21/2017 08/21/2018 1 1 Encounter Details Date Type Department Care Team (Late st Contact Info) Description 09/07/2017 8:00 AM EST Office Visit Neurology at [place] [phone] Mike Perez III, MD [facility] [place] [address] Multiple sclerosis Social History Tobacco Use Types Packs/Day Years Used Date Smoking Tobacco: Former Cigarettes Smokeless Tobacco: Never Comments:quit jun 2017 Alcohol Use Standard Drinks/Week Comments No 0.8 (1 standard drink = 0.6 oz p ure alcohol) Sex and Gender Information Value Date Recorded Sex Assigned at Not on file Gender Identity Not on file Sexual Orientation Not on file documented as of this encounter Last Filed Vital Signs Vital Sign Reading Time Taken Comments Blood Pressure 144/75 09/07/2017 8:11 AM EST Pulse 137 09/07/2017 8:11 AM EST Temperature - - Respiratory Rate - - Oxygen Saturation - - Inhaled Oxygen Concentration - - Weight 105.2 kg (231 lb 14.8 oz) 09/07/2017 8:11 AM EST Height 165.1 cm (5' 5) 09/07/2017 8:11 AM EST Body Mass Index 38.59 09/07/2017 8:11 AM EST documented in this encounter Patient Instructions * Patient Instructions* Mike Perez III, MD - 09/07/2017 8:00 AM EST We talked about the documented in this encounter Progress Notes * Mike Perez III, MD - 09/07/2017 8:00 AM EST Multiple Sclerosis [facility] New Patient Visit Dear Nadine Mcduffie MD, I saw Jewel Gracia in clinic today in consultation for MS at the request of Dr. Eun Collado.She was accompanied by her at today's visit. Below is my consultation note with impression and plan. Please do not hesitate to call with any questions. Appointment time: 8:10-9:14 (total 64 minutes) DISEASE SUMMARY: Principal neurologic diagnosis: MS Diagnosis of MS: 2018 - onset possibly in 2014 CSF: 8 oligoclonal bands, elevated IgG index and IgG synthesis rate Disease course at onset: relapsing Current disease course: relapsing Relapses: 10/2016 - R arm myoclonic jerks 2014 - R thigh numbness (possible relapse) EDSS (today): 2.5 MS Severity Score (EDSS and Disease Duration): 6.04 MSIS-29: 95 Treatment History Previous disease therapies: n/a Current disease therapies: none Imaging History Most recent MRI brain: 06/2017 Most recent MRI cervical spine: none Most recent MRI thoracic spine: none Chief Complaint: ? MS, R arm jerks and weakness History of Presenting Illness: Jewel Gracia is a 36 y.o. year old right-handed woman with hypothyroidism and depression, presenting with concern for MS. Jewel began to have R arm myoclonic jerks in October of 2016 which started relatively abruptly and thenmay have worsened over the follow weeks to months. Along with this she has noticed some mild hand weakness. Over the past few months the arm jerks have significantly improved, but she has developed tremors in the R hand and arm. This has made it difficulty to write. In the past few weeks she has experienced intermittent head bobbing. [facility] She tried Keppra which made her depression much worse. Most recently she has been on lamotrigine. Sometime in the past few weeks to months she developed numbness in the R arm - lateral aspect of the forearm and the 4th and 5th digits. She denies neck pain or pain radiation down the arm. About 2 years ago she experienced gradual onset of circumferential L thigh numbness that lasted a few days and then resolved. She has chronic lower back pain but no pain radiating down her leg at that time and no worsening of pain with the numbness. She was diagnosed with sciatica and was treated with physical therapy. Otherwise she denies any other prior history of neurological symptoms including vision loss, diplopia, numbness/weakness, bowel or bladder symptoms. No personal history of infectious mononucleosis. Current Medications: reviewed and updated in EMR Past Medical History: Medical History - Hospitalizations - Surgeries Past Medical History: Diagnosis Date ??? Anxiety 02/16/2011 ??? Gallstone ??? Hypothyroidism 04/11/2011 ??? Varicella Past Surgical History: Procedure Laterality Date ??? CHOLECYSTECTOMY, LAPAROSCOPIC 2015 Family Medical History: family history includes Aneurysm in her father; Cancer in her paternal aunt and paternal grandfather; Cerebrovascular Accident in her father; Heart Disease in her father; High Cholesterol in her mother; Thyroid Disease in her paternal aunt. Social History: Jewel Gracia lives with , 2 children (11 and 13), and her parents. 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 Smoking: none, quit in 06/2017; Alcohol: none, Illicit drugs: occasional marijuana use Review of Systems A 16 point ROS was obtained and reviewed with the patient. Pertinent positives and negatives were included in the HPI. Physical Examination Most Recent Vitals: 09/07/17 0811 BP: 144/75 Pulse: (!) 137 Hair, skin, nails, and joints were normal. Neck was supple without Lhermitte???s phenomenon. He was alert and oriented to person, place, and time with normal language, attention and concentration, recent and remote memory, praxis, and intellectual function. Mood was euthymic. Affect was congruent. Visual acuity was 20/15 OD, 20/15 OS. No red desaturation was noted bilaterally. Visual jones werefull to confrontation. Pupils were 4 mm and briskly reactive OU to 2 mm without a relative afferentpupillary defect. Funduscopic examination appeared normal. Ocular ductions were full without nystagmus. Facial sensation was normal. Muscles of facial expression moved normally. Hearing was normal. Pa latal movements were normal. Trapezius power and tongue movements were normal. There was no dysarthria. Motor tone was normal. There was no pronator drift. Intermittent, small, irregular amplitude resting and action tremor in the R arm that improved with distraction. No myoclonic jerks were noted on examination today. Upper extremities (R/L) Structural Steel Engineer 5/5 Finger abduction 5/5 Finger extension 4+/5 Wrist extension 4+/5 Elbow flexion 5/5 Elbow extension 5/5 Shoulder abduction 5/5 Lower extremities (R/L) Hip flexion 5/5 Knee extension 5/5 Knee flexion 5/5 Ankle plantarflexion 5/5 Ankle dorsiflexion 5/5 Deep tendon reflexes: Biceps 3+/2+ Triceps 2+/2+ Knees 2+/2+ Ankles 2+/2+ Temperature sensation was intact and symmetric in all distal extremities. Pin was decreased in the R distal arm and forearm. Decreased LT in digits 4 and 5 without splitting of a digit. Vibratory sensation was > 16 seconds at the toes bilaterally. Negative Romberg. No dysmetria with [id number] testing bilaterally. Finger tapping was rapid and accurate bilaterally. Standard gait was normal. She was able to tandem walk and hop on either foot. Timed 25-foot walk (sec): 3.9 Assistive device: none. QUANTITATIVE SCORES: Vision 0 Brainstem 0 Pyramidal 2 Cerebellar 1 Sensory 2 B&B 0 Cerebral 1 Ambulation 0 EDSS 2.5 REVIEW OF IMAGING STUDIES: I reviewed the following studies: MRI brain: without contrast Date: 05/18/2017 - Focal area of left perirolandic volume loss and T2 signal alteration. The differential for this appearance includes prior infarct, prior injury or Infection. MRI brain: with and without contrast Date: 06/14/2017 - Unchanged area of signal abnormality around the left central sulcus. No enhancement, or new area of abnormal signal. CTA head 06/14/2017: No vascular abnormalities identified on CTA head. ?? REVIEW OF LABORATORY STUDIES Results for JEWEL GRACIA ( ) as of 09/07/2017 10:13 08/18/2017 11:[address] 0 Neutrophil CSF 1 Lymphocyte CSF 91 Macrophage CSF 6 Plasma Cell CSF [address] CSF 200 Glucose, CSF 67 T Protein, CSF 25 Xanthochromia Neg SCOTT CSF 1.0 08/18/2017 12:12 IgG Index, CSF 2.68 Oligo Bands CSF 8 Assessment: ICD-10-CM 1. Multiple sclerosis G35 MRI Cervical Spine wwo Contrast MRI Thoracic Spine wwo Contrast Varicella zoster Antibody, IgG ASH Virus Antibody Jewel Gracia is a 36 y.o. woman who initially presented with myoclonic jerks in the R arm starting in October of 2016 (since improved) who then had MRI scan of her brain showing a large T2 lesion in the L frontoparietal region as well as scattered T2 hyperintense WM lesions some of which involve the corpus callosum with associated T1 hypointense regions (black holes). This raised concern for possible MS. CSF was obtained and showed normal nucleated cell count (4), but elevated oligoclonal bands and IgG index. So although this is an atypical presentation I think that her MRI and CSF findings along with her gender and age make this most consistent with a diagnosis of MS. Her examination today was notable for decreased sensation in the R arm following a C7 pattern, distal R arm weakness following an UMN patter, RUE hyperreflexia. We will obtain MRI scan of her cervical and thoracic spine to evaluate for total MS lesion burden especially in light of her R arm numbness and history of circumferential R thigh numbness which is more likely to be related to a cord lesion than a radicular pattern. We had a lengthy discussion about the diagnosis of MS. We also discussed our understanding of the pathophysiology, epidemiology of the disease. We discussed the role of MS relapse reducing therapies - reduce the risk of future relapses and subsequent disability. She is trying to become so we will keep this in mind in regards to choosing treatments. Diagnostic Plan: 1. MRI cervical and thoracic spine without and with contrast 2. Premedication laboratory evaluation - ASH virus Ab and VZV IgG Treatment Plan: 1. To discuss treatment options at next appointment Follow-Up: ~ 2-4 weeks Thank you for allowing us to participate in [facility]. If you have questions or concerns please do not hesitate to call our clinic at [phone]. Mike Perez III, MD Scientist Immunology of Neurology Multiple Sclerosis [facility] A total of 45 minutes of this 64 minute [id number] interaction was spent in counseling on diagnosis, prognosis, and medication and symptom management. 11:04 AM 09/07/2017 documented in this encounter Plan of Treatment Not on file documented as of this encounter Results * MRI Cervical Spine wwo Contrast (09/20/2017 6:12 PM EDT) Anatomical Region Laterality Modality C-spine Magnetic Resonan ce Impressions 09/21/2017 8:48 AM EDT Multiple sites of nonenhancing demyelination throughout the cervical and thoracic spine. Narrative 09/21/2017 8:48 AM EDT EXAMINATION: MRI CERVICAL SPINE WWO CONTRAST, MRI THORACIC SPINE WWO CONTRAST CLINICAL HISTORY: MS, L arm numbness and history of L leg numbness TECHNIQUE: MRI CERVICAL SPINE WWO CONTRAST, MRI THORACIC SPINE WWO CONTRAST. 20 cc dotarem administered. COMPARISON: Brain MRI 06/14/2017. FINDINGS: Cervical spine: Alignment is anatomic. Disc spaces and vertebral body heights are well-maintained. Small posterior disc osteophytes at C5-6 5 and C6-7 do not significantly narrow the spinal canal. Patchy, nonenhancing cord signal alteration spans the C3-C6 levels. None of the signal alteration spans more than 1 vertebral body in length. Thoracic spine: Mild disc space narrowing present at multiple levels. Posterior disc osteophyte complexes at T6-T8 levels mildly indent the thecal sac. There are multiple sites of cord signal alteration predominantly in the upper thoracic region that do not demonstrate definitive enhancement although evaluation is somewhat by patient motion. Procedure Note Alfred Vo MD - 09/21/2017 EXAMINATION: MRI CERVICAL SPINE WWO CONTRAST, MRI THORACIC SPINE WWOCONTRAST CLINICAL HISTORY: MS, L arm numbness and history of L leg numbness TECHNIQUE: MRI CERVICAL SPINE WWO CONTRAST, MRI THORACIC SPINE WWOCONTRAST. 20 cc dotarem administered. COMPARISON: Brain MRI 06/14/2017. FINDINGS: Cervical spine: Alignment is anatomic. Disc spaces and vertebral bodyheights are well-maintained. Small posterior disc osteophytes at C5-6 5 and C6-7do not significantly narrow the spinal canal. Patchy, nonenhancing cord signal alteration spans the C3-C6 levels. None of the signal alteration spansmore than 1 vertebral body in length. Thoracic spine: Mild disc space narrowing present at multiple levels.Posterior disc osteophyte complexes at T6-T8 levels mildly indent the thecal sac.There are multiple sites of cord signal alteration predominantly in the upperthoracic region that do not demonstrate definitive enhancement although evaluationis somewhat by patient motion. IMPRESSION Multiple sites of nonenhancing demyelination throughout the cervical and thoracic spine. Mike Perez III, MD IMG MRI ORDERABLE S * MRI Thoracic Spine wwo Contrast (09/20/2017 6:11 PM EDT) Anatomical Region Laterality Modality T-spine Magnetic Resonan ce Impressions 09/21/2017 8:48 AM EDT Multiple sites of nonenhancing demyelination throughout the cervical and thoracic spine. Narrative 09/21/2017 8:48 AM EDT EXAMINATION: MRI CERVICAL SPINE WWO CONTRAST, MRI THORACIC SPINE WWO CONTRAST CLINICAL HISTORY: MS, L arm numbness and history of L leg numbness TECHNIQUE: MRI CERVICAL SPINE WWO CONTRAST, MRI THORACIC SPINE WWO CONTRAST. 20 cc dotarem administered. COMPARISON: Brain MRI 06/14/2017. FINDINGS: Cervical spine: Alignment is anatomic. Disc spaces and vertebral body heights are well-maintained. Small posterior disc osteophytes at C5-6 5 and C6-7 do not significantly narrow the spinal canal. Patchy, nonenhancing cord signal alteration spans the C3-C6 levels. None of the signal alteration spans more than 1 vertebral body in length. Thoracic spine: Mild disc space narrowing present at multiple levels. Posterior disc osteophyte complexes at T6-T8 levels mildly indent the thecal sac. There are multiple sites of cord signal alteration predominantly in the upper thoracic region that do not demonstrate definitive enhancement although evaluation is somewhat by patient motion. Procedure Note Alfred Vo MD - 09/21/2017 EXAMINATION: MRI CERVICAL SPINE WWO CONTRAST, MRI THORACIC SPINE WWOCONTRAST CLINICAL HISTORY: MS, L arm numbness and history of L leg numbness TECHNIQUE: MRI CERVICAL SPINE WWO CONTRAST, MRI THORACIC SPINE WWOCONTRAST. 20 cc dotarem administered. COMPARISON: Brain MRI 06/14/2017. FINDINGS: Cervical spine: Alignment is anatomic. Disc spaces and vertebral bodyheights are well-maintained. Small posterior disc osteophytes at C5-6 5 and C6-7do not significantly narrow the spinal canal. Patchy, nonenhancing cord signal alteration spans the C3-C6 levels. None of the signal alteration spansmore than 1 vertebral body in length. Thoracic spine: Mild disc space narrowing present at multiple levels.Posterior disc osteophyte complexes at T6-T8 levels mildly indent the thecal sac.There are multiple sites of cord signal alteration predominantly in the upperthoracic region that do not demonstrate definitive enhancement although evaluationis somewhat by patient motion. IMPRESSION Multiple sites of nonenhancing demyelination throughout the cervical and thoracic spine. Mike Perez III, MD IM MRI ORDERABLE S * ASH Virus Antibody (09/20/2017 3:42 PM EDT) JCV Antibody See comment [facility] Comment: TESTS RESULTS--------UNITS--REF. RANGE--- JCV ANTIBODY ??FINAL RSLT: NEGATIVE INTERPRETATION ? Indeterminate: Low level reactivity detected, ? see Inhibition Assay result to ? follow for the final antibody ? result. ? Positive: Antibodies to ASH virus (JCV) ? detected indicating the patient has ? been exposed to JCV at an ? undetermined time. ? Negative: Antibodies to JCV not detected. The STRATIFY JCV Antibody Test is an enzyme-linked immunosorbent assay (ALEX) designed to detect JCV antibodies to help identify individuals who have been exposed to the virus. Samples with low level reactivity in the detection assay are retested in a confirmation (inhibition) assay to confirm presence or absence of JCV-specific antibodies. Test performed by [employer] Infectious Disease, ?[address] [facility], ?[place] [address] ? Truck Crane Operator: Angelo Ramirez MD Test Reported by [facility], [employer] [facility], [address] [place] [address] Silviano Robertson M.D., Ph.D., Director of Laboratories , [facility] [id number] Blood specimen (specimen) 09/20/2017 3:42 PM EDT 09/21/2017 11:42 AM EDT Narrative Resulting Agency Comment Spec In Lab Mike Perez III, MD LAB SEND OUT CRISTHIAN CAR Performing Organization Address [facility] Co de Phone Number [facility] [place] [address] * Varicella zoster Antibody, IgG (09/20/2017 3:42 PM EDT) Varicella Zoster Antibody IgG Pos [facility] Blood specimen (specimen) 09/20/2017 3:42 PM EDT 09/21/2017 7:38 AM EDT Narrative Resulting Agency Comment Spec In Lab Mike Perez III, MD IMMUNOLOGY ORDERA BLES Performing Organization Address [facility] Co de Phone Number [facility] [place] [address] documented in this encounter Visit Diagnoses Diagnosis Multiple sclerosis Multiple sclerosis Multiple sclerosis documented in this encounter Care Teams Banquet Lead Relationship Specialty Start Date End Date Nadine Mcduffie MD [address] [place] [address] PCP - General Family Medicine 03/27/17 documented as of this encounter
--- OUTSIDE RECORDS SUMMARY | 2024-05-22 19:43 | XMS_ITS | Encounter Summary ---
Author Organization [facility] [place] [address] Care Team Providers Care Staff Air Defense Officer Name Role Phone Nadine Mcduffie MD Primary Care Provider [phone] Encounter Details Date Type Department Care Team (Latest Contact Info) Description 07/18/2017 2:17 PM EST - 07/18/2017 11:59 PM EST Hospital [place] [address] Chioma Winston, [facility] [address] [place] [address] Malpositioned intrauterine device (IUD), initial encounter Discharge Disposition: Home Social History Tobacco [...] Sig Dispensed Refills Start Date End Date lamoTRIgine (LAMICTAL) 25 mg Tablet Increase by 50mg each week to goal of 150mg BID. Patient has titration schedule 360 tablet 12 06/27/2017 06/20/2019 levothyroxine (SYNTHROID) 75 mcg Tablet take 1 tablet by mouth once daily ON AN EMPTY STOMACH 0 05/15/2017 09/21/2017 venlafaxine (EFFEXOR-XR) 150 mg Capsule, Sust. Release [...] Name Priority Date/Time Associated Diagnosis Comments US TRANSVAGINAL NON OB Routine 07/18/2017 3:10 PM EST Malpositioned intrauterine device (IUD), initial encounter documented in this encounter Results * (ABNORMAL) US Transvaginal Non OB (07/18/2017 3:10 PM EST) Anatomical Region Laterality Modality Ultrasound 07/18/2017 3:08 PM EST Impressions 07/18/2017 3:36 PM EST ??Malpositioned IUD with the IUD seen extending from the lower uterine segmentinto the cervix. The tip of the IUD appears to extend into the wall of thecervix. The right arm is now positioned within the myometrium. The left arm maypossibly also extend into the myometrium.I have personally reviewed the image(s) and the residents interpretation andagree with the findings, Jayme Fontaine at 07/18/2017 3:27 PM ? Jayme Fontaine MD Electronically Signed Final Report ?? 07/18/2017 03:35 pm Narrative 07/18/2017 3:36 PM EST Gynecological Report ?(Signed Final 07/18/2017 03:35 pm) PATIENT INFO: ID #: ? [id number] ?: ??[birth year] (36 yrs) Name: ? ARIA Osborne BASIL ? Visit Date: 07/18/2017 03:08 pm PERFORMED BY: Performed By: ? Rose Titus RDMS Attending: ?Zhen MADSEN, Jayme Menard Resident: ? Orlando MADSEN, Jarvis Jesus Referred By: ?CHIOMA WINSTON Location: ? [place] SERVICE(S) PROVIDED: ??UTV - Transvaginal - [id number] ?[id number] ??U3D - ??3D rendering with interpretation - [id number] ? [id number] INDICATIONS: ??Unable to remove Paragard IUD; please ??confirm location TECHNIQUE/SCAN QUALITY: Technique: ?Transducer ID#:[id number] COMPARISON: No prior studies for comparison. -------- HISTORY: -------- Age: ?? 36 ------- UTERUS: ------- Position: ?? Anteverted Size (cm) ?L: ??7.06 ?W: ?? 3.72 ? H: ??3.42 ENDOMETRIUM: Endometrium: ?3D rendering with interpretation was ? performed. Thickness(mm): ?2.73 Comment: ? Unexpected finding: Abnormal appearance of IUD ?location. RIGHT OVARY: Status: ?? Visualized Size (cm) ?L: ??2.4 ? W: ?? 1.35 ? H: ??1.7 Vol (ml): ?2.9 Morphology: ?Normal appearance LEFT OVARY: Status: ?? Visualized Size (cm) ?L: ??2.14 ?W: ?? 1.8 ?H: ??1.62 Vol (ml): ?3.3 Morphology: ?Normal appearance Resulting Agency Comment Unexpected Finding Chioma Winston HAND TOOL FILER IMG PELVI C ORDERABLES documented in this encounter Visit Diagnoses Diagnosis Malpositioned intrauterine device (IUD), initial encounter documented in this encounter Care Teams Staff Air Defense Officer Relationship Specialty Start Date End Date Nadine Mcduffie MD [address] [place] [address] PCP - General Family Medicine 03/27/17 documented as of this encounter
--- OUTSIDE RECORDS SUMMARY | 2024-05-22 19:43 | XMS_ITS | Encounter Summary ---
Author Organization [facility] Address [facility] [place] [address] Care Team Providers Care Trainman Name Role Phone Nadine Mcduffie MD Primary Care Provider [phone] Reason for Visit * Physical Therapy (Routine) - Closed Specialty Diagnoses / Procedures Referred By Tonia argueta Referred To Contact Physical Therapy Diagnoses Muscle spasticity Brianna Collado MD [facility] [place] [address] [facility] [place] [address] Referral ID Status Reason Start Date Expiration Date V isits Requested Visits Authorized [id number] Closed Evaluate and Treat 12/27/2017 12/27/2018 1 1 Encounter Details Date Type Department Care Team (Late st Contact Info) Description 01/11/2018 8:00 AM EDT [place] [address] Evelyne Vallejo PT Neck pain; Multiple sclerosis; Myoclonus; Obesity (BMI 30-39.9); Anxiety Social History Tobacco Use Types Packs/Day Years [...] as of this encounter Progress Notes * Evelyne Vallejo, PT - 01/11/2018 8:00 AM EDT Outpatient Physical Therapy Initial Evaluation Note Date of Exam/First treatment: 01/11/2018 Date of Onset or Referral Date: 12/27/2017 Referring Provider: Brianna Collado MD Diagnosis and pertinent co-morbidities affecting Plan of Care: 1. Neck pain 2. Multiple sclerosis 3. Myoclonus 4. Obesity (BMI 30-39.9) 5. Anxiety Primary Insurance: Payor: [employer] / Plan: [employer] OPEN ACCESS PLUS / Product Type: *No Product type* / HISTORY: Aria Figueroa is a 37 y.o. female referred to physical therapy for R UE and neck tremorand pain. Aria was diagnosed with MS earlier this year and is undergoing further testing at this time to rule out any additional diagnoses. She is having increased tension in her neck, R scapular region and down her R flank. She has jerking type motions in her neck and notes only occasionally in her R LE and abdomen. Pt has decreased sensation in R ulnar distrbution from elbow inferiorly to 4th and 5th digits. Also notes tension under R clavicle causing discomfort. She is R handed and is having significant difficulties with writing and performing ADLs and driving her standard transmission car. She indicates that she feels weakness in her R LE and core, and occasionally stubs her toe while walking. Aria expresses frustration at situation and inability to take care of herself in a manner that she is used to, and notes she feels like she can't get ready for work as she used to with her make-up and hair. Number of Falls in last year: 2- Going up the stairs trips on the last step and once outside in thewinter. Functional Limitations: Patient reports difficulty with ADLs. She is able to perform by herself, but is having difficulty and needing increased time. 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 Pain: 3-4/10 R lateral neck and anterior clavicle. She notes it gets worse as the day goes on. OBJECTIVE FINDINGS: STRENGTH Right Left Shoulder Flexion 5 5 Shoulder Abduction 5 5 Shoulder Extension 5 5 Shoulder Internal Rotation 5 5 Shoulder External Rotation 5 5 ROM Cervical- AROM WFL in all directions Shaista Shoulder- AROM WFL except: -Shoulder Flexion 160 -Shoulder Abduction 155 Gait: Mildly unsteady with decreased heel strike on R LE. Stairs: Able to ascend a single flight of stairs with heavy reliance on UEs. Notes fatigue after performing. Palpation: Pt with increased tension throughout cervical musculature and inferiorly to R shoulder girdle. R Scalenes also with increased tension. During palpation pt's tremors seemed to decrease and at one point stopped when deeper pressure was applied. Interventions completed today: initial evaluation and home exercise program including Stretching levator scaplua, upper trap, SCM, and pecs/scalenes; Shaista UE D1 and D2 PNF with Red TB, Shoulder extension with Red TB, and bridging CLINICAL EVALUATION AND DIAGNOSIS: These findings are consistent with increased tone and tremors related to her MS causing pain including decreased flexibility and decreaesd UE ROM and decreased ability to function during ADLs. Skilled physical therapy is indicated to increase strength, increase flexibility, improve balance, improvegait, increase endurance and increase coordination. Specifically, the patient will benefit from a comprehensive home exercise program that enables safe practice of balance and functional exercises atan intensity and repetition to promote recovery of functional mobility. Physical therapy is indicated to: increase strength, increase flexibility, improve balance, improve gait, increase endurance and increase coordination Clinical Presentation: The patient's clinical presentation is Evolving due to diagnosis of MS with potential for relapse, and continuing testing to rule out other diagnoses. Clinical decision making of moderate complexity using standardized patient assessment instrument and measurable assessment of functional outcome. Functional Goals: Met Short Term Goals- 4 weeks Patient will be independent with home exercise program. Patient will demonstrate increased AROM in shoulder flexion and abduction to WFL. Walk down hallway with head turns without slowing to improve ability to scan environment during ambulatory ADLs without LOB Ascend/descend stairs reciprocally without report of fatigue. Met Glue Maker Bone Goals- 8 weeks FGA >/= 22 to indicate decreased risk of falling Gait speed of at least 1.0 m/s to demonstrate ability for safe community ambulation. Participate in community based or regular home based strengthening and balance exercise program. PLAN: Continue physical therapy for Manual Techniques, Soft Tissue Mobilization, Stretching, Joint Mobilization, Therapeutic Exercise, Modalities (PRN to control pain and inflammation) Electrical stimulation, Patient/Family Education, Body Mechanics, Posture, Home Exercise Program and Balance and Gait Training. Frequency and duration: every other week x 8 weeks, adding or tapering as appropriate based on clinical and functional progress. Pt with an hour drive to this area, so pt will try to perform HEP as directed and schedule sessions a little further apart. Home Exercise Program: 1. Stretching Upper Trap, Levator Scap, SCM, and Pecs/Scalenes. 2. Red TB for Shaista UE D1 and D2 PNF, and shaista shoulder extension. 3. Bridging. Informed Consent: The patient consented to the physical therapy evaluation. The patient agrees to and understands thephysical therapy treatment plan and goals. Total treatment time: 49 minutes Total Timed Coded Treatment: 49 minutes Evelyne Vallejo PT DPT [facility] Outpatient Rehabilitation- documented in this encounter Plan of Treatment Scheduled Referrals Name Type Priority Associated Diagnoses Orde r Schedule Referral to Physical Therapy Outpatient Referral Routine Muscle spasticity Ordered: 12/27/2017 documented as of this encounter Visit Diagnoses Diagnosis Neck pain Cervicalgia Multiple sclerosis Myoclonus Obesity (BMI 30-39.9) Obesity, unspecified Anxiety Anxiety state, unspecified documented in this encounter Care Teams Trainman Relationship Specialty Start Date End Date Nadine Mcduffie MD [address] [place] [address] PCP - General Family Medicine 03/27/17 documented as of this encounter
--- OUTSIDE RECORDS SUMMARY | 2024-05-22 19:43 | XMS_ITS | Encounter Summary ---
[place] [address] Care Team Providers Care Worm Raiser Name Role Phone Nadine Mcduffie MD Primary Care Provider [phone] Reason for Referral * Physical Therapy (Routine) - Closed Specialty Diagnoses / Procedures Referred By Tonia argueta Referred To Contact Physical Therapy Diagnoses Muscle spasticity Brianna Collado MD [facility] [place] [address] [facility] [place] [address] Referral ID Status Reason Start Date Expiration Date V isits Requested Visits Authorized [id number] Closed Evaluate and Treat 12/27/2017 12/27/2018 1 1 Encounter Details Date Type Department Care Team (Late st Contact Info) Description 12/27/2017 2:30 PM EDT [place] [address] Brianna Collado MD [facility] [place] [address] Arm numbness; Muscle spasticity Social History Tobacco Use Types [...] Sign Reading Time Taken Comments Blood Pressure 132/73 12/27/2017 2:12 PM EDT Pulse 84 12/27/2017 2:12 PM EDT Temperature - - Respiratory Rate - - Oxygen Saturation - - Inhaled Oxygen Concentration - - Weight 105.7 kg (233 lb) 12/27/2017 2:12 PM EDT Height 165.1 cm (5' 5) 12/27/2017 2:12 PM EDT r eported Body Mass Index 38.77 12/27/2017 2:12 PM EDT documented in this encounter Progress Notes * Brianna Collado MD - 12/27/2017 2:30 PM EDT [facility] Movement Disorders Follow Up Patient Evaluation Date of service 12/27/2017 Referring provider Nadine Mcduffie MD [address] [place] [id number] Cc: right arm twitches History of present illness Aria Figueroa is a 36 y.o. right handed woman who presents to [...] in CSF consistent with multiple sclerosis. She says she has been doing so much better. She is still having fatigue and intermittent muscle tension. Baclofen makes her drowsy but does help the muscle tightness. She also takes Ibuprofen whichis minimally helpful. She still has difficulty controlling her right arm. She was recently able to to write her name which was a big deal. SHe also had a one day episode of difficulty walking. Patient Active Problem List Diagnosis Code ??? Anxiety F41.9 ??? Hypothyroidism E03.9 ??? Obesity (BMI 30-39.9) E66.9 ??? Abnormal MRI R93.8 ??? 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 Tobacco use disorder, moderate, in early remission F17.201 ??? Multiple sclerosis G35 Current Outpatient Prescriptions: ??? COPAXONE 40 mg/mL Syringe, Inject 40 mg subcutaneously three times a week. Brand name copaxone necessary, Disp: 36 Syringe, Rfl: 1 ??? baclofen (LIORESAL) 10 mg Tablet, Take 0.5 tablets by mouth 2 times daily as needed., Disp: 60 tablet, Rfl: 3 ??? 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 Voice/language: no vocal tremor or dysarthria. [...] does have some relief from lamictal. She is now having muscle tightnes sin her upper back and neck muscles. She is very drowsy with tizanidine. We discussed options of tizanidine vs cymbalta. She prefers the tizanidine because it is PRN. I warned her it may still cause drowsiness and she could try taking half of a 2mg tab. I also considered amitriptyline but she would worry about potential weight gain. I will also refer her to PT. She is also having right more than left elbow pain and 4th-5th finger numbness suspicious for ulnar neuropathy. We will get an EMG/NCS to further clarify this. She continues to follow with Dr. Perez for her MS and will be seeing him next week. She is on copaxone. We briefly discussed medical marijuana today. She has some hesitations about this. I shared I only have anecdotal evidence of benefit. I would be willing to verify her diagnosis on forms if needed for her to get a medical marijuana card. - PT referral - EMG - tizanidine trial Brianna Collado MD [facility] Neurology-Movement Disorders documented in this encounter Plan of Treatment Scheduled Referrals Name Type Priority Associated Diagnoses Orde r Schedule Referral to Physical Therapy Outpatient Referral Routine Muscle spasticity Ordered: 12/27/2017 documented as of this encounter Visit Diagnoses Diagnosis Arm numbness Disturbance of skin sensation Muscle spasticity Spasm of muscle documented in this encounter Care Teams Worm Raiser Relationship Specialty Start Date End Date Nadine Mcduffie MD [address] [place] [address] PCP - General Family Medicine 03/27/17 documented as of this encounter
--- OUTSIDE RECORDS SUMMARY | 2024-05-22 19:43 | XMS_ITS | Encounter Summary ---
[place] [address] Care Team Providers Care Lining Stitcher Name Role Phone Nadine Mcduffie MD Primary Care Provider [phone] Reason for Referral * Diagnostic Test (Routine) - Closed Specialty Diagnoses / Procedures Referred By Contac t Referred To Contact Radiology Diagnoses Multiple sclerosis Procedures MRI Thoracic Spine wwo Mike Young III, MD [facility] [place] [address] [place] [address] Referral ID Status Reason Start Date Expiration Date V isits Requested Visits Authorized [id number] Closed Specialty Service Requested 09/07/2017 09/07/2018 1 1 Reason for Visit * Diagnostic Test (Routine) - Closed Specialty Diagnoses / Procedures Referred By Contac t Referred To Contact Radiology Diagnoses Multiple sclerosis Procedures MRI Cervical Spine wwo Mike Young III, MD [facility] [place] [address] [place] [address] Referral ID Status Reason Start Date Expiration Date V isits Requested Visits Authorized [id number] Closed Specialty Service Requested 09/07/2017 09/07/2018 1 1 Encounter Details Date Type Department Care Team (Latest Contact Info) Description 09/20/2017 3:48 PM EDT - 09/20/2017 11:59 PM EDT Hospital [place] [address] Mike Perez III, MD [facility] [place] [address] Multiple sclerosis Discharge Disposition: Home Social History [...] Date/Time Associated Diagnosis Comments MRI CERVICAL SPINE WITH/WO CONTRAST Routine 09/20/2017 6:12 PM EDT Multiple sclerosis MRI THORACIC SPINE WITH/WO CONTRAST Routine 09/20/2017 6:11 PM EDT Multiple sclerosis documented in this encounter Results * MRI Thoracic Spine wwo Contrast (09/20/2017 [...] Intravenous, ONCE PRN, 1 dose, Starting on Mon09/20/17 at 1754, Until Mon09/20/17 at 1745, Per Protocol, Radiology Contrast, Routine Given 09/20/2017 5:45 PM EDT 20 mLs documented in this encounter Care Teams Lining Stitcher Relationship Specialty Start Date End Date Nadine Mcduffie MD [address] [place] [address] PCP - General Family Medicine 03/27/17 documented as of this encounter
--- OUTSIDE RECORDS SUMMARY | 2024-05-22 19:43 | XMS_ITS | Encounter Summary ---
Author Organization [facility] [place] [address] Care Team Providers Care Taximeter Repairer Name Role Phone Nadine Mcduffie MD Primary Care Provider [phone] Reason for Visit * Reason Onset Date Comments Other 06/19/2017 Encounter Details Date Type Department Care Team ([facility] Contact Info) Description 06/19/2017 [place] [address] Brianna Collado MD [facility] [place] [address] Other Social History Tobacco Use Types Packs/Day [...] Telephone Encounter - Emily Phelps RN - 06/20/2017 2:34 PM EST Brianna Collado MD to Me ?? 06/19/17 3:48 PM I called the patient's cell number and left a message because she did not answer (I think she can not always answer her cell at work). I suggested she start with daily dosing of the depakote with theunderstanding that this will give her a chance to see how it makes her feel but may not improve thearm movements. I also offered that she could move up her follow up appointment if she would like to discuss additional options in person. I would be willing to see her any afternoon that I am on the inpatient service. RJT Call placed to patient to ensure she received the message and see what she would like to do. She feels as though she would like to discuss options in person, she was transferred to the medical assistant secretary to scheduled a sooner appointment and has been scheduled to see Dr Collado for 06/27/17. * Telephone Encounter - Emily Phelps RN - 06/19/2017 3:08 PM EST Reason for Call: Concerned about starting depakote Patient Report: Patient states that she has stopped the Keppra due to the side effects she reportedover the weekend to Dr Aguilar. Most of those symptoms have subsided and she is starting to feel better in that regard. She is worried about starting the Depakote as, according to the information she received from the pharmacy, it has the potential for the same side effects as the Keppra. She does not want to feel that way again. She states that Dr Aguilar thought that starting at low dose of Depakote would be ok. She was prescribed 250 mg 2 times daily and she wonders if it is possible to start lower than this to be able to monitor for side effects. Plan/Intervention/Follow Up - Report forwarded to Dr Collado for review and comment. Pt/caller aware they will be called back with input when available and to call back in the interim if additional questions or change arise before they hear back from this office. Pt/caller agreeable to this plan. * Telephone Encounter - Yasmin Johnson - 06/19/2017 12:22 PM EST Caller: Aria If not Pt / Relation to pt: Best time to reach caller: anytime except from 3:45-5 today Before 2:30pm - Informed caller that nurse will call back by the end of the day Best number to reach caller: [phone] Reason for call: patient called with concerns about her medications. She is hesitant to start the depakote after the reaction that she had with the Keppra. She would like to discuss the medication change with Dr. Collado or her nurse before starting the medication. Please call and advise. documented in this encounter Plan of Treatment Not on file documented as of this encounter Visit Diagnoses Not on filedocumented in this encounter Care Teams Taximeter Repairer Relationship Specialty Start Date End Date Nadine Mcduffie MD [address] [place] [address] PCP - General Family Medicine 03/27/17 documented as of this encounter
--- OUTSIDE RECORDS SUMMARY | 2024-05-22 19:43 | XMS_ITS | Encounter Summary ---
Author Organization [facility] [place] [address] Care Team Providers Care Broadcast Traffic Coordinator Name Role Phone Nadine Mcduffie MD Primary Care Provider [phone] Encounter Details Date Type Department Care Team (Late Contact Info) Description 08/01/2017 Telephone Obstetrics [place] [address] Helen Aguilar MD [facility] DR OBSTETRICS [place] [address] Social History Tobacco Use Types Packs/Day Years [...] encounter Miscellaneous Notes * Telephone Encounter - Helen Aguilar MD - 08/01/2017 12:55 PM EST Will attempt removal of IUD with hysteroscopy in office. documented in this encounter Plan of Treatment Not on file documented as of this encounter Visit Diagnoses Not on filedocumented in this encounter Care Teams Broadcast Traffic Coordinator Relationship Specialty Start Date End Date Nadine Mcduffie MD [address] [place] [address] PCP - General Family Medicine 03/27/17 documented as of this encounter
--- OUTSIDE RECORDS SUMMARY | 2024-05-22 19:43 | XMS_ITS | Encounter Summary ---
Author Organization [facility] [place] [address] Care Team Providers Care Sky Cap Name Role Phone Nadine Mcduffie MD Primary Care Provider [phone] Reason for Visit * Reason Onset Date Comments Prior Authorization 12/01/2017 COPAXONE 40M G Encounter Details Date Type Department Care Team (Late st Contact Info) Description 12/01/2017 [place] [address] Mike Perez III, MD [facility] [place] [address] Prior Authorization (COPAXONE 40MG) Social History Tobacco Use Types Packs/Day Years [...] * Telephone Encounter - Piedad Marc - 12/06/2017 3:26 PM EDT Images from the original note were not included. * Telephone Encounter - Piedad Marc - 12/05/2017 12:37 PM EDT FORM FILLED OUT AND FAXED TO [facility]. * Telephone Encounter - Piedad Marc - 12/01/2017 3:07 PM EDT Images from the original note were not included. documented in this encounter Plan of Treatment Not on file documented as of this encounter Visit Diagnoses Not on filedocumented in this encounter Care Teams Sky Cap Relationship Specialty Start Date End Date Nadine Mcduffie MD [address] [place] [address] PCP - General Family Medicine 03/27/17 documented as of this encounter
--- OUTSIDE RECORDS SUMMARY | 2024-05-22 19:43 | XMS_ITS | Encounter Summary ---
Author Organization [facility] [place] [address] Care Team Providers Care Holistic Specialist Name Role Phone Nadine Mcduffie MD Primary Care Provider [phone] Encounter Details Date Type Department Care Team (Late st Contact Info) Description 06/13/2017 Orders [place] [address] Brianna Collado MD [facility] [place] [address] Social History Tobacco Use Types Packs/Day Years [...] on filedocumented in this encounter Care Teams Holistic Specialist Relationship Specialty Start Date End Date Nadine Mcduffie MD [address] [place] [address] PCP - General Family Medicine 03/27/17 documented as of this encounter
--- OUTSIDE RECORDS SUMMARY | 2024-05-22 19:43 | XMS_ITS | Encounter Summary ---
[place] [address] Care Team Providers Care Librarian Specialist Name Role Phone Nadine Mcduffie MD Primary Care Provider [phone] Reason for Referral * Diagnostic Test (Routine) - Closed Specialty Diagnoses / Procedures Referred By Contac t Referred To Contact Radiology Diagnoses Multiple sclerosis Procedures MRI Cervical Spine wwo Mike Young III, MD [facility] [place] [address] [place] [address] Referral ID Status Reason Start Date Expiration Date V isits Requested Visits Authorized [id number] Closed Specialty Service Requested 09/07/2017 09/07/2018 1 1 Reason for Visit * Diagnostic Test (Routine) - Closed Specialty Diagnoses / Procedures Referred By Contac t Referred To Contact Radiology Diagnoses Multiple sclerosis Procedures MRI Cervical Spine wwo Mike Young III, MD [facility] [place] [address] [place] [address] Referral ID Status Reason Start Date Expiration Date V isits Requested Visits Authorized [id number] Closed Specialty Service Requested 09/07/2017 09/07/2018 1 1 Encounter Details Date Type Department Care Team (Latest Contact Info) Description 09/20/2017 3:46 PM EDT - 09/20/2017 3:47 PM EDT [place] [address] Mike Perez III, MD [facility] [place] [address] Multiple sclerosis Discharge Disposition: Home Social History [...] as of this encounter Progress Notes * Lester Cook RN - 09/13/2017 1:26 PM EDT MRI PRE-SEDATION ASSESSMENT NOTE NAME: Aria Figueroa AGE: 36 y.o. : [address] [place] [address] Female [phone] (home) Telephone Information: Nadine Mcduffie MD No primary care provider on file. Allergies Allergen Reactions ??? Hydrocodone-Acetaminophen mood lability ??? Sulfa (Sulfonamide Antibiotics) edema ??? Penicillins Rash Date/Time of call: September 13, 2017/1:26 PM/ PREVIOUS MRI SCAN? Yes HEIGHT: 5'5 WEIGHT: 237lb SCHEDULED SCAN: MRI Thoracic Spine wwo Contrast; MRI Cervical Spine wwo Contrast (80 minutes; Head first; Supine) Question Answer Comment Where will study be performed? [facility] Reason for exam and clinical history: MS, L arm numbness and history of L leg numbness Is the patient ? No SUBJECTIVE: claustrophobia CAN YOU LAY FLAT? yes AIRWAY ISSUES? no DO YOU HAVE ANY INVOLUNTARY MOVEMENTS? (explain) spasms in Right arm and neck, relatively constant DO YOU HAVE ANY PAIN? See above DO YOU TAKE PAIN MED ON A DAILY BASIS? lamictal ASSESSMENT: Pt is appropriate for PO sedation, prefers to continue with Ativan as it has worked well in the past PLAN: Ativan 1-2 mg PO per protocol Guidelines for MRI Pre-Procedures Laboratory Studies: GFR >60 (05/2017) Date of lab draw N/A 1. Creatinine studies (GFR level needed) within 90 days of scan ??? 70 yo or older if they are getting contrast ??? 50 years and older if they are diabetic and getting contrast ( XXX ) You must have a clark driver present when you check in. This patient has been informed that they require a clark driver to drive them home after this procedure. In the absence of a clark driver, IR will not be able to sedate for your scan. Pt verbalized understanding of these instructions during the pre-procedure education via phone. Yes Name of clark driver: Phone number PRIOR SCAN DATE/S ? SEDATION TYPE ? SUCCESSFUL 05/18/17 MRI Brain wo Ativan 1 mg PO x2 yes 06/14/17 MRI Brain w/wo Ativan 1 mg po yes?? 09/20/17 MRI t and c spine wwo? Ativan 1 mg PO x 1? Yes ? Revised 07/17/15 documented in this encounter Plan of Treatment Not on file documented as of this encounter Procedures Procedure Name Priority Date/Time Associated Diagnosis Comments MRI CERVICAL SPINE WITH/WO CONTRAST Routine 09/20/2017 6:12 PM EDT Multiple sclerosis documented in this [...] sclerosis Multiple sclerosis documented in this encounter Administered Medications Inactive Administered Medications - up to 3 most recent administrations Medication Order MAR Action Action Date Dose Rate Site LORazepam (ATIVAN) tablet 1 mg 1 mg, Oral, EVERY 30 MIN PRN, 2 doses, Starting on Mon09/20/17 at 0925, Until Andressa 09/21/17 at 0436, Anxiety, Angio/IR (Day of Procedure), Routine Given 09/20/2017 3:59 PM EDT 1 mg documented in this encounter Care Teams Librarian Specialist Relationship Specialty Start Date End Date Nadine Mcduffie MD [address] [place] [address] PCP - General Family Medicine 03/27/17 documented as of this encounter
--- OUTSIDE RECORDS SUMMARY | 2024-05-22 19:43 | XMS_ITS | Encounter Summary ---
[place] [address] Care Team Providers Care Blanket Maker Name Role Phone Nadine Mcduffie MD Primary Care Provider [phone] Reason for Visit * Reason Onset Date Comments Follow-up 09/13/2017 Encounter Details Date Type Department Care Team ([facility] Contact Info) Description 09/13/2017 Telephone Obstetrics [place] [address] Helen Aguilar MD [facility] DR OBSTETRICS [place] [address] Follow-up Social History Tobacco Use Types Packs/Day [...] Telephone Encounter - Helen Aguilar MD - 09/13/2017 10:07 AM EDT I spoke with Aria. She had cancelled her appt for office hysteroscopy for embedded IUD removal because she is having a lot of appts with neurology as she is being worked up for MS. She will call when she is ready to schedule this. documented in this encounter Plan of Treatment Not on file documented as of this encounter Visit Diagnoses Not on filedocumented in this encounter Care Teams Blanket Maker Relationship Specialty Start Date End Date Nadine Mcduffie MD [address] [place] [address] PCP - General Family Medicine 03/27/17 documented as of this encounter
--- OUTSIDE RECORDS SUMMARY | 2024-05-22 19:43 | XMS_ITS | Encounter Summary ---
Author Organization [facility] [place] [address] Care Team Providers Care Residential Real Estate Sales Manager Name Role Phone Nadine Mcduffie MD Primary Care Provider [phone] Reason for Visit * Reason Onset Date Comments Medication Refill 12/06/2017 Encounter Details Date Type Department Care Team (Late st Contact Info) Description 12/06/2017 [place] [address] Mike Perez III, MD [facility] [place] [address] Social History Tobacco Use Types Packs/Day Years [...] on filedocumented in this encounter Care Teams Residential Real Estate Sales Manager Relationship Specialty Start Date End Date Nadine Mcduffie MD [address] [place] [address] PCP - General Family Medicine 03/27/17 documented as of this encounter
--- OUTSIDE RECORDS SUMMARY | 2024-05-22 19:43 | XMS_ITS | Encounter Summary ---
[place] [address] Care Team Providers Care Student Services Dean Name Role Phone Nadine Mcduffie MD Primary Care Provider [phone] Encounter Details Date Type Department Care Team (Late st Contact Info) Description 09/07/2017 Orders [place] [address] Preston Collins Social History Tobacco Use Types [...] on filedocumented in this encounter Care Teams Student Services Dean Relationship Specialty Start Date End Date Nadine Mcduffie MD [address] [place] [address] PCP - General Family Medicine 03/27/17 documented as of this encounter
--- OUTSIDE RECORDS SUMMARY | 2024-05-22 19:43 | XMS_ITS | Encounter Summary ---
Author Organization [facility] [place] [address] Care Team Providers Care Patient Service Specialist Name Role Phone Nadine Mcduffie MD Primary Care Provider [phone] Reason for Visit * Reason Onset Date Comments Other 10/03/2017 Encounter Details Date Type Department Care Team ([facility] Contact Info) Description 10/03/2017 [place] [address] Mike Perez III, MD [facility] [place] [address] Other Social History Tobacco Use Types Packs/Day [...] Telephone Encounter - Greta Neely RN - 10/03/2017 3:53 PM EDT Copaxone prescription and service request form faxed back to [employer] on 10/03/17 to fax number [phone] with date added. * Telephone Encounter - Yasmin Johnson - 10/03/2017 3:49 PM EDT Caller: Lucio If not Pt / Relation to pt: [facility] Best time to reach caller: After 230 pm (if not red arrow message) - Informed caller that if the nurse does not call back by the end of the day they will be called tomorrow AM Best number to reach caller:[phone] use option 3 for pharmacy line Reason for call: Lucio called stating that they need additional information for the patient's copaxone prescription. She states that the date that it was written was missing and they can't fill until it is done. Please call and advise. documented in this encounter Plan of Treatment Not on file documented as of this encounter Visit Diagnoses Not on filedocumented in this encounter Care Teams Patient Service Specialist Relationship Specialty Start Date End Date Nadine Mcduffie MD [address] [place] [address] PCP - General Family Medicine 03/27/17 documented as of this encounter
--- OUTSIDE RECORDS SUMMARY | 2024-05-22 19:43 | XMS_ITS | Encounter Summary ---
Author Organization [facility] [place] [address] Care Team Providers Care Manager Intensive Care Unit Name Role Phone Nadine Mcduffie MD Primary Care Provider [phone] Reason for Visit * Reason Onset Date Comments Other 07/11/2017 Encounter Details Date Type Department Care Team ([facility] Contact Info) Description 07/11/2017 [place] [address] Brianna Collado MD [facility] [place] [address] Other Social History Tobacco Use Types Packs/Day [...] Telephone Encounter - Emily Phelps RN - 07/12/2017 9:33 AM EST Brianna Collado MD to Me ?? 07/11/17 2:37 PM Yes OK to continue. If she reaches a point prior to getting up to the 150mg BID where she has good symptom relief then she can stay at that dose and not continue increasing. RJT Spoke with patient and relayed recommendations as noted. Patient states that she feels as though the medication is helping and wants to stay on it. She mentions that she did have a few small red, raised, itchy bumps appear last night. She states that there was about 5 total in separate places on her body. They are gone this morning and she is not itchy any more. She will watch for any new bumps and if they come back she will call. * Telephone Encounter - Emily Phelps RN - 07/11/2017 11:45 AM EST Last Appointment: 06/27/17 Next Appointment: 08/30/17 Medication: Lamictal 50 mg Directions: Titrate up as directed- patient is currently taking 50 mg twice daily-started on this dose Monday07/09/17 Reason for Call: Medication Update Patient report: Name of Medication: Lamictal Results: Not as shaky, feeling better overall Side Effects: Dull ache on the left side of the abdomen. Very dark urine on one occasion-Monday morning first things, no recurrence since. Patient wonder if it is ok to continue on the medication. Plan/Intervention/Follow Up - Report forwarded to Dr Collado for review and comment. Pt/caller aware they will be called back with input when available and to call back in the interim if additional questions or change arise before they hear back from this office. Pt/caller agreeable to this plan. * Telephone Encounter - Yasmin Johnson Nikki - 07/11/2017 11:06 AM EST Caller: Aria If not Pt / Relation to pt: Best time to reach caller: anytime before 3 Before 2:30pm - Informed caller that nurse will call back by the end of the day Best number to reach caller: [phone] Reason for call: Patient called stating that she is having some side effects from the lamotrigine. She states that she had brown urine once on Monday07/09/17 but not repeated. She states that she has stomach burn since she started taking the lamotrigine. She states that it is a dull ache. Please call and advise. documented in this encounter Plan of Treatment Not on file documented as of this encounter Visit Diagnoses Not on filedocumented in this encounter Care Teams Manager Intensive Care Unit Relationship Specialty Start Date End Date Nadine Mcduffie MD [address] [place] [address] PCP - General Family Medicine 03/27/17 documented as of this encounter
--- OUTSIDE RECORDS SUMMARY | 2024-05-22 19:43 | XMS_ITS | Encounter Summary ---
Author Organization [place] [address] Care Team Providers Care Christmas Tree Farm Crew Boss Name Role Phone Nadine Mcduffie MD Primary Care Provider [phone] Encounter Details Date Type Department Care Team ([facility] Contact Info) Description 06/18/2017 [place] [address] Lavern Almeida MD [facility] [address] Social History Tobacco Use Types Packs/Day Years [...] encounter Miscellaneous Notes * Telephone Encounter - Lavern Almeida MD - 06/18/2017 10:38 AM EST Patient called back to confirm the recommendations from yesterday. Per Dr Aguilar, the prescription was sent to her pharmacy. She was advised about the risk of teratogenicity from Depakote and in caseshe plans to get she will need to call Dr. Collado to start a different medication. documented in this encounter Plan of Treatment Not on file documented as of this encounter Visit Diagnoses Not on filedocumented in this encounter Care Teams [employer] Tree Farm Crew Boss Relationship Specialty Start Date End Date Nadine Mcduffie MD [address] [place] [address] PCP - General Family Medicine 03/27/17 documented as of this encounter
--- OUTSIDE RECORDS SUMMARY | 2024-05-22 19:43 | XMS_ITS | Encounter Summary ---
Author Organization [facility] Address [facility] [place] [address] Care Team Providers Care Advertising Dispatch Clerk Name Role Phone Nadine Mcduffie MD Primary Care Provider [phone] Reason for Visit * Reason Onset Date Comments Other 09/25/2017 Encounter Details Date Type Department Care Team ([facility] Contact Info) Description 09/25/2017 [place] [address] Mike Perez III, MD [facility] [place] [address] Other Social History Tobacco Use Types Packs/Day [...] Telephone Encounter - Emily Phelps RN - 09/25/2017 3:07 PM EDT ?? 09/25/17 1:56 PM Priscilla, She can try baclofen - 5mg BID prn. If this is ineffective we can try to increase the dose. - Hema Called patient and relayed the recommendations as noted, she is agreeable to trying this medication. Prescription prepared in separate encounter for provider approval. * Telephone Encounter - Emily Phelps RN - 09/25/2017 1:38 PM EDT Reason for Call: Muscle pain/tension Patient Report: Patient states that she has been experiencing muscle pain and tension, it is throughout the whole body, not just one muscle. Patient states that she has had this issue for a number ofyears, it is not constant, it come and goes. In the past, a doctor prescribed clonazepam 0.5 mg to help with this as it was thought to be related to anxiety and stress. When patient experienced this yesterday she had 1/2 tab of clonazepam and took that to see if it would help and it was effective. Shalini wonders if Dr Perez thinks this issue could be related to MS and if so is clonazepam a reasonable medication to use for this issue and if so would he be willing to prescribe this. If he does not think this is the right medication she would like to try whatever he thinks would be most beneficial. Patient would prefer to not be on a medication like clonazepam. Any Additional Information to Relay: Patient will call back regarding where she would like the referral for counseling to go. Plan/Intervention/Follow Up - Report forwarded to Dr Perez for review and comment. Pt/caller aware they will be called back with input when available and to call back in the interim if additional questions or change arise before they hear back from this office. Pt/caller agreeable to this plan. * Telephone Encounter - Emily Phelps RN - 09/25/2017 11:50 AM EDT Called and left message for patient asking that she call back and provide more information regarding the pain she is experiencing and what type of therapy she is looking for for and where she would like the Referral to be sent. * Telephone Encounter - Dania Olivas - 09/25/2017 10:10 AM EDT Caller: Patient If not Pt / Relation to pt: Best time to reach caller: anytime before 2:00pm can leave message Before 2:30pm - Informed caller that nurse will call back by the end of the day Best number to reach caller: [phone] Reason for call: Patient would like to discuss a medication for intense muscle pain. She also wouldlike to discuss a referral for therapy regarding her new dx as her insurance requires a referral for them to cover. Please Call to discuss documented in this encounter Plan of Treatment Not on file documented as of this encounter Visit Diagnoses Not on filedocumented in this encounter Care Teams Advertising Dispatch Clerk Relationship Specialty Start Date End Date Nadine Mcduffie MD [address] [place] [address] PCP - General Family Medicine 03/27/17 documented as of this encounter
--- OUTSIDE RECORDS SUMMARY | 2024-05-22 19:43 | XMS_ITS | Encounter Summary ---
[place] [address] Care Team Providers Care Keel Press Operator Name Role Phone Nadine Mcduffie MD Primary Care Provider [phone] Reason for Referral * Diagnostic Test (Routine) - Closed Specialty Diagnoses / Procedures [facility] Referred To Contact Radiology Diagnoses Abnormal MRI Myoclonus Procedures MRI Brain wwo Contrast (Generic) MRI Brain w Contrast Brianna Collado MD [facility] [place] [address] [place] [address] Referral ID Status Reason Start Date Expiration Date V isits Requested Visits Authorized [id number] Closed Specialty Service Requested 06/08/2017 09/28/2017 1 1 Reason for Visit * Diagnostic Test (Routine) - Closed Specialty Diagnoses / Procedures Referred By Tonia argueta Referred To Contact Radiology Diagnoses Abnormal MRI Myoclonus Procedures MRI Brain wwo Contrast (Generic) MRI Brain w Contrast Brianna Collado MD [facility] [place] [address] [place] [address] Referral ID Status Reason Start Date Expiration Date V isits Requested Visits Authorized [id number] Closed Specialty Service Requested 06/08/2017 09/28/2017 1 1 Encounter Details Date Type Department Care Team (Latest Contact Info) Description 06/14/2017 2:51 PM EST - 06/14/2017 2:52 PM EST Hospital Encounter MRI at [facility] [place] [address] Brianna Collado MD [facility] [place] [address] Abnormal MRI; Myoclonus Discharge Disposition: Home Social History Tobacco Use [...] as of this encounter Progress Notes * Adeline Mathis RN - 06/09/2017 9:44 AM EST MRI PRE-SEDATION ASSESSMENT NOTE NAME: Aria Figueroa AGE: 36 y.o. : 1980 [address] [place] [address] Female [phone] (home) Telephone Information: Nadine Mcduffie MD No primary care provider on file. Allergies Allergen Reactions ??? Hydrocodone-Acetaminophen mood lability ??? Sulfa (Sulfonamide Antibiotics) edema ??? Penicillins Rash Date/Time of call: June 09, 2017/9:44 AM/ PREVIOUS MRI SCAN? yes HEIGHT: 5'5 WEIGHT: 240 lb SCHEDULED SCAN: MRI Brain wwo Contrast (60 minutes, Supine, head first) Arrive at 1510. SUBJECTIVE: I am claustrophobic. CAN YOU LAY FLAT? Yes AIRWAY ISSUES? No DO YOU HAVE ANY INVOLUNTARY MOVEMENTS? Yes, right arm. DO YOU HAVE ANY PAIN? No DO YOU TAKE PAIN MED ON A DAILY BASIS? Advil PRN ASSESSMENT: Appropriate for PO sedation PLAN: Ativan 1-2 mg PO per protocol Guidelines for MRI Pre-Procedures Laboratory Studies: GFR Date of lab draw 1. Creatinine studies (GFR level needed) within 90 days of scan ??? 70 yo or older if they are getting contrast ??? 50 years and older if they are diabetic and getting contrast ( XXX ) You must have a light truck driver present when you check in. This patient has been informed that they require a light truck driver to drive them home after this procedure. In the absence of a light truck driver, IR will not be able to sedate for your scan. Pt verbalized understanding of these instructions during the pre-procedure education via phone. Yes MP [place] of light truck driver: Wu () Phone number: [phone] PRIOR SCAN DATE/S SEDATION TYPE SUCCESSFUL 05/18/17 MRI Brain wo Ativan 1 mg PO x2 yes 06/14/17 MRI Brain w/wo Ativan 1 mg po ? Revised 07/17/15 documented in this encounter [...] of abnormal signal identified. Small areas of [id number] alteration in the white matter in the right frontal lobe are unchanged.There is no abnormal enhancement elsewhere. Major intracranial flow voids arenormal. There is no restricted diffusion. IMPRESSION Unchanged area of signal abnormality around the left central sulcus. No enhancement, or new area of abnormal signal. Brianna Collado MD IMG MRI ORDERABLES documented in this encounter Visit Diagnoses Diagnosis Abnormal MRI Other nonspecific (abnormal) findings on radiological and other examinations of body structure Myoclonus documented in this encounter Administered Medications Inactive Administered Medications - up to 3 most recent administrations Medication Order MAR Action Action Date Dose Rate Site LORazepam (ATIVAN) tablet 1-2 mg 1-2 mg, Oral, ONCE PRN, 2 doses, Starting on Mon06/14/17 at 0705, Until Mon06/15/17 at 0436, Anxiety, Angio/IR (Day of Procedure), Routine Given 06/14/2017 3:41 PM EST 1 mg documented in this encounter Care Teams Keel Press Operator Relationship Specialty Start Date End Date Nadine Mcduffie MD [address] [place] [address] PCP - General Family Medicine 03/27/17 documented as of this encounter
--- OUTSIDE RECORDS SUMMARY | 2024-05-22 19:43 | XMS_ITS | Encounter Summary ---
Author Organization [facility] [place] [address] Care Team Providers Care Supervisor Paper Coating Name Role Phone Nadine Mcduffei MD Primary Care Provider [phone] Reason for Visit * Consultation (Routine) - Specialty Diagnoses / Procedures Referred By Tonia argueta Referred To Contact Neurology Diagnoses MRI brain abnormal, chorea Stressenger, Kiara, [employer] [address] [place] [address] [facility] [address] [place] [phone] Referral ID Status Reason Start Date Expiration Date V isits Requested Visits Authorized [id number] Consult, Test & Treat Connection [facility] PCP Updated and/or Approved 05/22/2017 05/22/2018 6 6 Encounter Details Date Type Department Care Team (Late st Contact Info) Description 08/18/2017 11:00 AM EST Procedure [place] [phone] Priscila Flowers MD [facility] [address] NE[place]OLOG[place] [address] Oralia Feliz MD [facility] [place] [address] Myoclonus; Abnormal MRI Social History Tobacco Use Types Packs/Day Years [...] as of this encounter Progress Notes * Priscila Flowers MD - 08/18/2017 11:00 AM EST Neurology Attending Note Priscila Flowers MD (Pg [phone]) I certify that I was present and supervised this Lumbar puncture on Aria Osborne [place] on 08/18/[address] Sanchez documented in this encounter Procedure Notes * Oralia Feliz MD - 08/18/2017 11:00 AM ESTAssociated Order(s): LUMBAR PUNCTURE Pre-Procedure Diagnose(s): Myoclonus Post-Procedure Diagnose(s): Myoclonus; Abnormal MRI Lumbar Puncture Date/Time: 08/18/2017 11:30 AM Performed by: ORALIA FELIZ Authorized by: DEONDRE DIAZ Protocol: Written consent obtained?: Yes Risks and benefits: Risks, benefits and alternatives were discussed Consent given by: Patient Patient states understanding of procedure being performed: Yes Patient's understanding of procedure matches consent: Yes Procedure consent matches procedure scheduled: Yes Relevant documents present and verified: Yes Test results available and properly labeled: Yes Site marked: Yes Imaging studies available: Yes Patient identity confirmed: Verbally with patient Time out: Immediately prior to the procedure a time out was called A time out verifies correct patient, procedure, equipment, academic support director and site/side marked as required: Indications: LP Indications: Inflammatory workup Anesthesia: Anesthesia: Local infiltration Local anesthetic: Lidocaine 1% without epinephrine Anesthetic total (ml): 5 Patient sedated: No Procedure Details: Preparation: Patient was prepped and draped in usual sterile fashion Lumbar space: L3-L4 interspace Patient's position: Sitting Needle gauge: 22 Needle type: Sprotte tip Needle length (in): 3.5 Number of attempts: 2 Opening pressure (cm H2O): not obtained. Closing pressure (cm H2O): not obtained. Fluid appearance: Clear Tubes of fluid: 4 Total volume (ml): 22 CSF Labs obtained: Cell Count-CSF, Glucose-CSF, Oligoclonal Band (Index), Protein-CSF, IgG Index, Culture-CSF, Paraneoplastic Eval Panel and Lyme CSF (positive serum Lyme required) Post LP Procedure: Stylet repaced and needle withdrawn, Site cleaned, Pressure dressing and Writtenand verbal instructions given to patient Performed by: Resident The patient was approached by Oralia Feliz MD about participating in the CSF Biospecimen and Data Bank, a [place] institution [place] [facility] [place] Drs. Mike Riggs and Aaron Graham as lead investigators. After meeting inclusion and exclusion criteria, subjects will provide witnessed informed consent. All questions from the patient regarding this study have been answered. The consent form has [facility]-approval date of 02/09/2017. All study-related procedures were completed after signing the ICF. A copy of the ICF has been provided to the patient. The CSF sample (3.5 mL) was collected by Oralia Feliz MD and properly stored and sent to the CSF banking Lab. Oralia Feliz MD 08/18/17 Neurology Resident - PGY-2 documented in this encounter Plan of Treatment Not on file documented as of this encounter Procedures Procedure Name Priority Date/Time Associated Diagnosis Comments LUMBAR PUNCTURE Routine 08/18/2017 12:48 PM EST Myoclonus Abnormal MRI FLUID REVIEW REPORT Routine 08/18/2017 1 2:44 PM EST OLIGOCLONAL BANDING BLOOD Routine 08/18/2017 12:12 PM EST Myoclonus Abnormal MRI OLIGOCLONAL BANDING CSF Routine 08/18/2017 12:12 PM EST Myoclonus Abnormal MRI IGG INDEX CSF Routine 08/18/2017 12:12 PM EST Myoclonus Abnormal MRI CSF WEST NILE AB, IGG/IGM Routine 08/18/2017 11:30 AM EST Myoclonus Abnormal MRI MISCELLANEOUS LAB REQUEST Routine 08/18/2017 11:30 AM EST MISCELLANEOUS LAB REQUEST Routine 08/18/2017 11:30 AM EST Myoclonus Abnormal MRI HSV 1 AND 2 PCR Routine 08/18/2017 11:30 AM EST Myoclonus Abnormal MRI [facility] [place]ONE TEST-CAPONE Routine 08/18/2017 1 1:30 AM EST 4 TOTAL TUBES SENT CSF Routine 8 11:30 AM EST Myoclonus Abnormal MRI CSF CELL COUNT Routine 08/18/2017 11:30 AM EST Myoclonus Abnormal MRI CSF DESC 4 Routine 08/18/2017 11:30 AM EST Myoclonus Abnormal MRI CSF DESC 3 Routine 08/18/2017 11:30 AM EST Myoclonus Abnormal MRI CSF DESC 2 Routine 08/18/2017 11:30 AM EST Myoclonus Abnormal MRI CSF DESC 1 Routine 08/18/2017 11:30 AM EST Myoclonus Abnormal MRI HEMATOLOGY FLUID REVIEW Routine 08/18/2017 11:30 AM EST Myoclonus Abnormal MRI VZV PCR, CSF Routine 08/18/2017 11:30 AM EST Myoclonus Abnormal MRI ENTEROVIRUS PCR, CSF Routine 08/18/2017 11:30 AM EST Myoclonus Abnormal MRI CMV PCR, QUALITATIVE Routine 08/18/2017 11:30 AM EST Myoclonus Abnormal MRI CSF CULTURE Routine 08/18/2017 11:30 AM EST Myoclonus Abnormal MRI PROTEIN LEVEL CSF Routine 08/18/2017 11: 30 AM EST Myoclonus Abnormal MRI GLUCOSE LEVEL CSF Routine 08/18/2017 11: 30 AM EST Myoclonus Abnormal MRI ANGIOTENSIN CONVERTING ENZYME CSF Routine 08/18/2017 11:30 AM EST Myoclonus Abnormal MRI documented in this encounter Results * Lumbar Puncture (08/18/2017 12:48 PM EST) Narrative Oralia Feliz MD - 08/18/2017 12:48 PM EST Oralia Feliz MD ? 08/18/2017 12:48 PM Lumbar Puncture Date/Time: 08/18/2017 11:30 AM Performed by: ORALIA FELIZ Authorized by: DEONDRE DIAZ Protocol: ??Written consent obtained?: Yes ?Risks and benefits: Risks, benefits and alternatives were discussed ?Consent given by: ??Patient ??Patient states understanding of procedure being performed: Yes ?Patient's understanding of procedure matches consent: Yes ?Procedure consent matches procedure scheduled: Yes ?Relevant documents present and verified: Yes ?Test results available and properly labeled: Yes ?Site marked: Yes ?Imaging studies available: Yes ?Patient identity confirmed: ??Verbally with patient ??Time out: Immediately prior to the procedure a time out was called ?? A time out verifies correct patient, procedure, equipment, academic support director and site/side marked as required: Indications: ??LP Indications: ??Inflammatory workup Anesthesia: ??Anesthesia: ??Local infiltration ??Local anesthetic: ??Lidocaine 1% without epinephrine ??Anesthetic total (ml): ??5 ??Patient sedated: No ?? Procedure Details: ??Preparation: Patient was prepped and draped in usual sterile fashion ?Lumbar space: ??L3-L4 interspace ??Patient's position: ??Sitting ??Needle gauge: ??22 ??Needle type: ??Sprotte tip ??Needle length (in): ??3.5 ??Number of attempts: ??2 ??Opening pressure (cm H2O): not obtained. ??Closing pressure (cm H2O): not obtained. ??Fluid appearance: ??Clear ??Tubes of fluid: ??4 ??Total volume (ml): ??22 ??CSF Labs obtained: ??Cell Count-CSF, Glucose-CSF, Oligoclonal Band (Index), Protein-CSF, IgG Index, Culture-CSF, Paraneoplastic Eval Panel and Lyme CSF (positive serum Lyme required) ??Post LP Procedure: ??Stylet repaced and needle withdrawn, Site cleaned, Pressure dressing and Written and verbal instructions given to patient ??Performed by: ??Resident Deondre Diaz MD PROCEDURE/MINOR SQUIRES RGICAL ORDERABLES * Fluid Review Report (08/18/2017 12:44 PM EST) Fluid Review Report [id number] ? Location: 3C The signing pathologist has (i) examined the relevant preparation(s) for the specimen(s) and (ii) rendered or confirmed the diagnosis(es). . ? Fluid Review DIAGNOSIS Cerebrospinal fluid, review: No malignant cells are seen on the cytocentrifuge preparation. Electronically signed by: ??Faith MADSEN, Edilberto Verified: ??08/18/2017 ?Hematopathologi st Performed at: ??-[facility] [place], [place], [place] ADDITIONAL STUDIES WBC/uL: 4 RBC/uL: 0 200 cells counted on cytocentrifuge preparation. Histiocytes, ??many lymphocytes, rare neutrophils seen. CLINICAL INFORMATION Specimen: ? CSF Clinical Diagnosis: ? Abnormal T2 signal in the frontal lobe Indication for Study: ?? Leukemia/Lymphoma screen [facility] 08/18/2017 12:4 4 PM EST Deondre Diaz MD PATHOLOGY/CYTOLOGY ORDERABLES Performing Organization Address [facility]/ZIP Co de Phone Number [facility] [place] [address] * Oligoclonal Banding Blood (08/18/2017 12:12 PM EST) Olig Band Bld Hold Sample in lab [facility] Blood specimen (specimen) 08/18/2017 12:12 PM EST 08/18/2017 12:36 PM EST Narrative Resulting Agency Comment Spec In Lab Deondre Diaz MD CHEMISTRY ORDERABL ES Performing Organization Address [facility] Co de Phone Number [facility] [place] [address] * (ABNORMAL) Oligoclonal Banding CSF (08/18/2017 12:12 PM EST) Oligo Bands Csf (MAY) Test ? Result ?Flag ??Unit ? RefValue Oligoclonal Banding ??Serum Bands ?1 ? bands ??CSF Bands ?9 ? bands ??CSF Olig Bands Interpretation ?8 ?@ ?bands ?<4 ?The oligoclonal band assay detected 4 or more unique IgG ?bands in the CSF. This is a positive result. ?CSF is used in the diagnosis of MS by identifying increased ?intrathecal IgG synthesis qualitatively (Oligoclonal Bands) ?or quantitatively (IgG index or IgG synthesis rate, CSF). ?Oligoclonal bands (4 or more CSF-specific bands) and/or an ?elevated CSF IgG index are detected in up to 90% of ?patients with MS. These findings, however, are not specific ?for MS as CSF-specific IgG synthesis may also be found in ?patients with other neurologic diseases including ?infectious, inflammatory, cerebrovascular, and ?paraneoplastic disorders. ?Test Performed by: ?[facility] ?[address] [place] [address](A) [facility] [place] Review 08/18/2017 12:1 2 PM EST 08/18/2017 4:35 PM EST Narrative Resulting Agency Comment Spec In Lab Deondre Diaz MD LAB SEND OUT ORDER DERICK Performing Organization Address City/State/[facility] Co de Phone Number [facility] [place] [address] * (ABNORMAL) IgG Index CSF (08/18/2017 12:12 PM EST) IgG Index, CSF (MAY) Test ? Result ?Flag ??Unit ? RefValue ------- Cerebrospinal Fl, CSF, IgG Index ??IgG Index, CSF ? 2.68 ? H ? <=0.85 ??IgG, CSF ? 5.6 ? mg/dL ?<=8.1 ? ---ADDITIONAL INFORMATION------- ?This test has been modified from the group fitness department head's ?instructions. Its performance characteristics were ?determined by [facility] in a manner consistent with ?CLIA requirements. This test has not been cleared or ?approved by the U.S. Food and Drug Administration. ??Albumin, CSF ? 7.5 ? mg/dL ?<=27.0 ? ---ADDITIONAL INFORMATION------- ?This test has been modified from the group fitness department head's ?instructions. Its performance characteristics were ?determined by [facility] in a manner consistent with ?CLIA requirements. This test has not been cleared or ?approved by the U.S. Food and Drug Administration. ??IgG/Albumin, CSF ? 0.75 ? H ? <=0.21 ??Synthesis Rate, CSF ?21.41 ?H ?mg/24 h ??<=12 ??IgG, S ? 1070 ?mg/dL ?767 - 1590 ??Albumin, S ? 3820 ?mg/dL ?3200 - 4800 ??IgG/Albumin, S ? 0.28 ? <=0.40 ?Test Performed by: ?[facility] ?[address] [place] [address](A) [facility] [place] Review 08/18/2017 12:1 2 PM EST 08/18/2017 4:35 PM EST Narrative Resulting Agency Comment Spec In Lab Deondre Diaz MD LAB SEND OUT ORDER DERICK [facility] [place] [place] [address] * [facility] Test-[place] (08/18/2017 11:30 AM EST) [facility] [place] Test ? Result ? Flag ??Unit ?? RefValue --- Paraneoplas Autoantibody Eval,CSF ??Paraneoplastic Interpretation, CSF ? SEE COMMENTS ?No informative autoantibodies were detected in the ?Paraneoplastic Evaluation. However, a negative result does ?not exclude neurological autoimmunity with or without ?associated neoplasia. Sensitivity and specificity of ?antibody testing are enhanced by testing both serum and ?CSF. ??AGNA-1, CSF ?Negative ? titer ??<1:2 ? --ADDITIONAL INFORMATION-------- ?This test was developed and its performance characteristics ?determined by [facility] in a manner consistent with CLIA ?requirements. This test has not been cleared or approved by ?the U.S. Food and Drug Administration. ??Amphiphysin Ab, CSF ?Negative ? titer ??<1:2 ? --ADDITIONAL INFORMATION-------- ?This test was developed and its performance characteristics ?determined by [facility] in a manner consistent with CLIA ?requirements. This test has not been cleared or approved by ?the U.S. Food and Drug Administration. ??MARGARET-1, CSF ?Negative ? titer ??<1:2 ??Reflex Added ? None. ? --ADDITIONAL INFORMATION-------- ?This test was developed and its performance characteristics ?determined by [facility] in a manner consistent with CLIA ?requirements. This test has not been cleared or approved by ?the U.S. Food and Drug Administration. ??MARGARET-2, CSF ?Negative ? titer ??<1:2 ? --ADDITIONAL INFORMATION-------- ?This test was developed and its performance characteristics ?determined by [facility] in a manner consistent with CLIA ?requirements. This test has not been cleared or approved by ?the U.S. Food and Drug Administration. ??MARGARET-3, CSF ?Negative ? titer ??<1:2 ? --ADDITIONAL INFORMATION-------- ?This test was developed and its performance characteristics ?determined by [facility] in a manner consistent with CLIA ?requirements. This test has not been cleared or approved by ?the U.S. Food and Drug Administration. ??CRMP-5-IgG, CSF ?Negative ? titer ??<1:2 ? --ADDITIONAL INFORMATION-------- ?This test was developed and its performance characteristics ?determined by [facility] in a manner consistent with CLIA ?requirements. This test has not been cleared or approved by ?the U.S. Food and Drug Administration. ??ETL MANAGER-1, CSF ? Negative ? titer ??<1:2 ? --ADDITIONAL INFORMATION-------- ?This test was developed and its performance characteristics ?determined by [facility] in a manner consistent with CLIA ?requirements. This test has not been cleared or approved by ?the U.S. Food and Drug Administration. ??ETL MANAGER-2, CSF ? Negative ? titer ??<1:2 ? --ADDITIONAL INFORMATION-------- ?This test was developed and its performance characteristics ?determined by [facility] in a manner consistent with CLIA ?requirements. This test has not been cleared or approved by ?the U.S. Food and Drug Administration. ??ETL MANAGER-Tr, CSF ?Negative ? titer ??<1:2 ? --ADDITIONAL INFORMATION-------- ?This test was developed and its performance characteristics ?determined by [facility] in a manner consistent with CLIA ?requirements. This test has not been cleared or approved by ?the U.S. Food and Drug Administration. ?Test Performed by: ?[facility] ?[address] [place] [address] [facility] Cerebrospinal fluid specimen (specimen) Other / Unknown 08/18/2017 11:30 AM EST 08/18/2017 4:18 PM EST Narrative Resulting Agency Comment Spec In Lab Deondre Diaz MD LAB SEND OUT ORDER DERICK Performing Organization Address [facility]/ZIP Co de Phone Number [facility] [place] [address] * Miscellaneous Lab request (08/18/2017 11:30 AM EST) Label Request received in lab. [facility] Cerebrospinal fluid specimen (specimen) 08/18/2017 11:30 AM EST 08/21/2017 8:55 AM EST Narrative Resulting Agency Comment Spec In Lab Priscila Flowers MD LAB SEND OUT ORDERAB LES Performing Organization Address [facility] Co de Phone Number [facility] [place] [address] * HSV 1 and 2 PCR (08/18/2017 11:30 AM EST) HSV-1 PCR Not Detected Not Detected [facility] HSV-2 PCR Not Detected Not Detected [facility] HSV Source CSF [facility] Comment: The only FDA approved specimen types for this assay are CSF and genital lesions. Cerebrospinal fluid specimen (specimen) 08/18/2017 11:30 AM EST 08/18/2017 12:20 PM EST Narrative Resulting Agency Comment Spec In Lab Deondre Diaz MD MICROBIOLOGY - GEN ERAL ORDERABLES Performing Organization Address [facility]/ZIP Co de Phone Number [facility] [place] [address] * Leukemia Lymphoma Screen (08/18/2017 11:30 AM EST) FR BF Type CSF [facility] Hematology Fluid Review See Comment [facility] Comment:See Fluid Review Rep ort [id number] under Hematopathology Reports. Cerebrospinal fluid specimen (specimen) 08/18/2017 11:30 AM EST 08/18/2017 12:12 PM EST Narrative Resulting Agency Comment Spec In Lab Deondre Diaz MD BODY FLUIDS AND ST OOLS ORDERABLES Performing Organization Address [facility]/ZIP Co de Phone Number [facility] [place] [address] * Miscellaneous Lab request (08/18/2017 11:30 AM EST) Label Request received in lab. [facility] Cerebrospinal fluid specimen (specimen) 08/18/2017 11:30 AM EST 08/18/2017 12:12 PM EST Narrative Resulting Agency Comment Spec In Lab Deondre Diaz MD LAB SEND OUT ORDER DERICK Performing Organization Address City/[facility]/ZIP Co de Phone Number [facility] [place] [address] * Angiotensin Converting Enzyme CSF (08/18/2017 11:30 AM EST) SCOTT CSF 1.0 0.0 - 2.5 unit/L [facility] Comment: See scan report Test performed by [employer] [address] [place] [id number] Cerebrospinal fluid specimen (specimen) 08/18/2017 11:30 AM EST 08/21/2017 3:14 PM EST Narrative Resulting Agency Comment Spec In Lab Deondre Diaz MD LAB SEND OUT ORDER DERICK Performing Organization Address [facility] de Phone Number [facility] [place] [address] * CSF West Nile Ab, IgG/IgM (08/18/2017 11:30 AM EST) West Nile IgG CSF (OCTOBER) Negative Negative [facility] Comment: Test Performed by: [facility] - [address] [address] West Nile IgM CSF (OCTOBER) Negative Negative [facility] Comment: Test Performed by: [facility] - [address] [address] Wnv Interp, Csf (OCTOBER) SEE COMMENTS [facility] Comment: No antibodies to WNV detected. ??Repeat testing in 10-14 days if clinical suspicion persists. ADDITIONAL INFORMATION This test has been modified from the group fitness department head's instructions. Its performance characteristics were determined by [facility] in a manner consistent with CLIA requirements. This test has not been cleared or approved by the U.S. Food and Drug Administration. Test Performed by: [facility] - [address] [address] Cerebrospinal fluid specimen (specimen) 08/18/2017 11:30 AM EST 08/18/2017 1:09 PM EST Narrative Resulting Agency Comment Spec In Lab Deondre Diaz MD LAB SEND OUT ORDER DERICK Performing Organization Address [facility] Co de Phone Number [facility] [place] [address] * Enterovirus PCR, CSF (08/18/2017 11:30 AM EST) ENTV PCR Negative Negative [facility] Cerebrospinal fluid specimen (specimen) 08/18/2017 11:30 AM EST 08/18/2017 12:20 PM EST Narrative Resulting Agency Comment Spec In Lab Deondre Diaz MD MICROBIOLOGY - GEN ERAL ORDERABLES Performing Organization Address [facility] Co de Phone Number [facility] [place] [address] * CSF Cell Count (08/18/2017 11:30 AM EST) Tube # counted 4 [facility] Total Nucleated Cell Count, CSF 4 0 - 5 /mcl [facility] Comment: If Nucleated CSF CT result equals Zero, no smear is made and no Differential is performed. If Nucleated CSF CT result is 1-5 / mcL, a smear is made and scanned but no results are reported unless abnormalities are noted. If Nucleated CSF CT result is 6 /mcL or greater, a smear is made and manual differential is performed and reported. Nucleated CSF CT results on a CSF fluid must be correlated with clinical condition. RBC Count CSF 0 /mcl [facility] Segmented Neutrophils, CSF 1 % [facility] Lymphocyte, CSF 91 % [facility] Macrophage CSF 6 % [facility] Plasma, CSF 2 % [facility] Total Cells, CSF 200 Cells [facility] Cerebrospinal fluid specimen (specimen) 08/18/2017 11:30 AM EST 08/18/2017 12:12 PM EST Narrative Resulting Agency Comment Spec In Lab Deondre Diaz MD BODY FLUIDS AND ST OOLS ORDERABLES Performing Organization Address [facility] Co de Phone Number [facility] [place] [address] * CSF DESC 4 (08/18/2017 11:30 AM EST) Tube Num CSF 4 4 [facility] Color, CSF 4 Colorless Colorless [facility] Appearance, CSF 4 Clear Clear [facility] Total Vol, CSF 4 2.8 mL [facility] Cerebrospinal fluid specimen (specimen) 08/18/2017 11:30 AM EST 08/18/2017 12:12 PM EST Narrative Resulting Agency Comment Spec In Lab Deondre Diaz MD BODY FLUIDS AND ST OOLS ORDERABLES Performing Organization Address [facility] de Phone Number [facility] [place] [address] * CSF DESC 3 (08/18/2017 11:30 AM EST) Tube Num CSF 3 3 [facility] Color, CSF 3 Colorless Colorless [facility] Appearance, CSF 3 Clear Clear [facility] Total Vol, CSF 3 6.0 mL [facility] Cerebrospinal fluid specimen (specimen) 08/18/2017 11:30 AM EST 08/18/2017 12:12 PM EST Narrative Resulting Agency Comment Spec In Lab Deondre Diaz MD BODY FLUIDS AND ST OOLS ORDERABLES Performing Organization Address [facility] de Phone Number [facility] [place] [place] [address] * CSF DESC 2 (08/18/2017 11:30 AM EST) Tube Num CSF #2 2 [facility] Color, CSF 2 Colorless Colorless [facility] Appearance, CSF 2 Clear Clear [facility] Total Vol, CSF 2 4.3 mL [facility] Cerebrospinal fluid specimen (specimen) 08/18/2017 11:30 AM EST 08/18/2017 12:12 PM EST Narrative Resulting Agency Comment Spec In Lab Deondre Diaz MD BODY FLUIDS AND ST OOLS ORDERABLES Performing Organization Address [facility] Co de Phone Number [facility] [place] [address] * CSF DESC 1 (08/18/2017 11:30 AM EST) Tube Num CSF #1 1 [facility] Color, CSF Colorless Colorless [facility] Appearance, CSF Clear Clear [facility] Total Vol, CSF 5.2 mL [facility] Cerebrospinal fluid specimen (specimen) 08/18/2017 11:30 AM EST 08/18/2017 12:12 PM EST Narrative Resulting Agency Comment Spec In Lab Deondre Diaz MD BODY FLUIDS AND ST CANDACE ORDERABLES Performing Organization Address City/State/[facility] Co de Phone Number [facility] [place] [address] * CMV PCR, Qualitative, CSF (08/18/2017 11:30 AM EST) Cmv Pcr, Qualitative (MAY) Test ?Result ? Flag ??Unit ??RefValue ------- Cytomegalovirus PCR ??Specimen Source ? csf ??Cytomegalovirus PCR ? Negative ? Negative ? ---ADDITIONAL INFORMATION------- ?This test was developed and its performance characteristics ?determined by [facility] in a manner consistent with CLIA ?requirements. This test has not been cleared or approved by ?the U.S. Food and Drug Administration. ?Test Performed by: ?[facility] ?[address] [place] [address] [facility] Cerebrospinal fluid specimen (specimen) 08/18/2017 11:30 AM EST 08/18/2017 1:09 PM EST Narrative Resulting Agency Comment Spec In Lab Deondre Diaz MD LAB SEND OUT ORDER DERICK [facility] [place] [address] * VZV PCR, CSF (08/18/2017 11:30 AM EST) Varicella-Zo ster PCR (MAY) Test ?Result ? Flag ??Unit ??RefValue ------- Varicella-Zoster Virus PCR ??Specimen Source ? csf ??Varicella-Zoster Virus PCR ?Negative ? Negative ? ---ADDITIONAL INFORMATION------- ?This test was developed and its performance characteristics ?determined by [facility] in a manner consistent with CLIA ?requirements. This test has not been cleared or approved by ?the U.S. Food and Drug Administration. ?Test Performed by: ?[facility] ?[address] [place] [address] [facility] Cerebrospinal fluid specimen (specimen) 08/18/2017 11:30 AM EST 08/18/2017 1:09 PM EST Narrative Resulting Agency Comment Spec In Lab Deondre Diaz MD LAB SEND OUT ORDER DERICK Performing Organization Address [facility]/ZIP Co de Phone Number [facility] [place] [address] * CSF Culture (08/18/2017 11:30 AM EST) Central Nervous System Culture No growth [facility] Gram Stain Cytocentrifuge Gram Stain performed No WBC's seen. No microorganisms seen. [facility] Cerebrospinal fluid specimen (specimen) 08/18/2017 11:30 AM EST 08/18/2017 12:20 PM EST Narrative Resulting Agency Comment Spec In Lab Deondre Diaz MD MICROBIOLOGY - GEN ERAL ORDERABLES Performing Organization Address [facility] Co de Phone Number [facility] [place] [address] * Glucose Level CSF (08/18/2017 11:30 AM EST) Glucose, CSF 67 mg/dL [facility] Comment:CSF at equilibrium e quals approximately 60-80% of plasma glucose. Cerebrospinal fluid specimen (specimen) 08/18/2017 11:30 AM EST 08/18/2017 12:12 PM EST Narrative Resulting Agency Comment Spec In Lab Deondre Diaz MD BODY FLUIDS AND ST OOLS ORDERABLES Performing Organization Address [facility]/ZIP Co de Phone Number [facility] [place] [address] * Protein Level CSF (08/18/2017 11:30 AM EST) Protein, CSF 25 15 - 45 mg/dL [facility] Xanthochromia Neg [facility] Cerebrospinal fluid specimen (specimen) 08/18/2017 11:30 AM EST 08/18/2017 12:12 PM EST Narrative Resulting Agency Comment Spec In Lab Deondre Diaz MD BODY FLUIDS AND ST OOLS ORDERABLES [facility] [place] [address] documented in this encounter Visit Diagnoses Diagnosis Myoclonus Abnormal MRI Other nonspecific (abnormal) findings on radiological and other examinations of body structure documented in this encounter Care Teams Supervisor Paper Coating Relationship Specialty Start Date End Date Nadine Mcduffie MD [address] [place] [address] PCP - General Family Medicine 03/27/17 documented as of this encounter
--- OUTSIDE RECORDS SUMMARY | 2024-05-22 19:43 | XMS_ITS | Encounter Summary ---
[place] [address] Care Team Providers Care Bending Machine Operator Name Role Phone Nadine Mcduffie MD Primary Care Provider [phone] Encounter Details Date Type Department Care Team (Late st Contact Info) Description 01/04/2018 [place] [address] Preston Collins Social History Tobacco Use Types [...] on filedocumented in this encounter Care Teams Bending Machine Operator Relationship Specialty Start Date End Date Nadine Mcduffie MD [address] [place] [address] PCP - General Family Medicine 03/27/17 documented as of this encounter
--- OUTSIDE RECORDS SUMMARY | 2024-05-22 19:43 | XMS_ITS | Encounter Summary ---
Author Organization [facility] Address [facility] [place] [address] Care Team Providers Care Cupola Patcher Name Role Phone Nadine Mcduffie MD Primary Care Provider [phone] Reason for Visit * Consultation (Routine) - Specialty Diagnoses / Procedures Referred By Tonia argueta Referred To Contact Neurology Diagnoses MRI brain abnormal, chorea Stressenger, Kiara, [employer] [address] [place] [address] [facility] [address] [place] [address] Referral ID Status Reason Start Date Expiration Date V isits Requested Visits Authorized [id number] Consult, Test [facility] Treat [facility] PCP Updated and/or Approved 05/22/2017 05/22/2018 6 6 Encounter Details Date Type Department Care Team (Late st Contact Info) Description 09/07/2017 9:00 AM EST [place] [address] Brianna Collado MD [facility] [place] [address] Myoclonus; Multiple sclerosis Social History Tobacco Use Types [...] Time Taken Comments Blood Pressure 144/75 09/07/2017 8:13 AM EST Pulse 137 09/07/2017 8:13 AM EST Temperature - - Respiratory Rate - - Oxygen Saturation - - Inhaled Oxygen Concentration - - Weight 105.2 kg (231 lb 14.8 oz) 09/07/2017 8:13 AM EST Height 165.1 cm (5' 5) 09/07/2017 8:13 AM EST Body Mass Index 38.59 09/07/2017 8:13 AM EST documented in this encounter Progress Notes * Brianna Collado MD - 09/07/2017 9:00 AM EST [facility] Movement Disorders Follow Up Patient Evaluation Date of service 09/07/2017 Referring provider Nadine Mcduffie MD [address] [place] [address] Cc: right arm twitches History of present [...] bands in CSF consistent with multiple sclerosis. Her involuntary movements were initially very jerk like high amplitude and intermittent. 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 She hasbeen working on getting FMLA from work. For the larger amplitude myoclonic type movements a trial of keppra resolved the movements but she had psychiatric side effects which were intolerable. We discussed options of depakote, zonegran and lamictal. We decided based on side effect profiles to go with the lamictal. She is now taking 150mg BID (often misses one of the doses) and has incomplete relief of symptoms but no major side effects. Patient Active Problem List Diagnosis Code ??? Anxiety F41.9 ??? Hypothyroidism E03.9 ??? Obesity (BMI 30-39.9) E66.9 ??? Abnormal MRI R93.8 ??? 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 Tobacco use disorder, moderate, in early remission F17.201 ??? Multiple sclerosis G35 Current Outpatient Prescriptions: ??? lamoTRIgine (LAMICTAL) 25 mg Tablet, Increase by 50mg each week to goal of 150mg BID. Patient has titration schedule, Disp: 360 tablet, Rfl: 12 ??? levothyroxine (SYNTHROID) 75 mcg Tablet, take 1 tablet by mouth once daily ON AN EMPTY STOMACH,Disp: , Rfl: 0 ??? venlafaxine (EFFEXOR-XR) 150 mg Capsule, Sust. Release 24 hr, Take 1 capsule by mouth daily. Add 75mg to total 225mg daily - may substitute 3x75mg, 150+75mg, or 225mg tablet daily (Patient takingdifferently: Take 150 mg by mouth daily.), Disp: 90 capsule, Rfl: 3 ??? 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 Voice/language: no vocal tremor or dysarthria. [...] but could not tolerate the side effects. Now having only minimal relief from lamictal but not consistently taking it BID. Additional studies have now been significant for oligoclonal bands and elevated IgG indexin CSF consistent with multiple sclerosis. She met with Dr. Perez for the first time today to discuss the MS diagnosis further. She will have spinal MRI for further evaluation of potential MS lesions. I reassured her that the movements she is having now should continue a course of improvement. She should take the lamictal BID. Follow up with me in 3 months. Brianna Collado MD [facility] Neurology-Movement Disorders documented in this encounter Plan of Treatment Not on file documented as of this encounter Visit Diagnoses Diagnosis Myoclonus Multiple sclerosis documented in this encounter Care Teams Cupola Patcher Relationship Specialty Start Date End Date Nadine Mcduffie MD [address] [place] [address] PCP - General Family Medicine 03/27/17 documented as of this encounter
--- OUTSIDE RECORDS SUMMARY | 2024-05-22 19:43 | XMS_ITS | Encounter Summary ---
[place] [address] Care Team Providers Care Gericare Aide Teacher Name Role Phone Nadine Mcduffie MD Primary Care Provider [phone] Encounter Details Date Type Department Care Team (Latest Contact Info) Description 08/18/2017 12:15 PM EST Laboratory Appointment Lab [address] [address] Myoclonus; Abnormal MRI Social History Tobacco Use [...] Procedure Name Priority Date/Time Associated Diagnosis Comments IGG INDEX BLOOD Routine 08/18/2017 12:12 PM EST Myoclonus Abnormal MRI documented in this encounter Results * IgG Index Blood (08/18/2017 12:12 PM EST) IgG Index Bld Hold Sample in lab [facility] Blood specimen (specimen) 08/18/2017 12:12 PM EST 08/18/2017 12:20 PM EST Narrative Resulting Agency Comment Spec In Lab Brianna Collado MD CHEMISTRY ORDERABL ES [facility] [place] [address] documented in this encounter Visit Diagnoses Diagnosis Myoclonus Abnormal MRI Other nonspecific (abnormal) findings on radiological and other examinations of body structure documented in this encounter Care Teams Gericare Aide Teacher Relationship Specialty Start Date End Date Nadine Mcduffie MD [address] [place] [address] PCP - General Family Medicine 03/27/17 documented as of this encounter
--- OUTSIDE RECORDS SUMMARY | 2024-05-22 19:43 | XMS_ITS | Encounter Summary ---
[place] [address] Care Team Providers Care Spanish Tutor Name Role Phone Nadine Mcduffie MD Primary Care Provider [phone] Encounter Details Date Type Department Care Team (Latest Contact Info) Description 09/20/2017 3:25 PM EDT Laboratory Appointment Lab [address] [place] [address] Multiple sclerosis Social History Tobacco Use Types [...] Procedure Name Priority Date/Time Associated Diagnosis Comments ASH VIRUS ANTIBODY Routine 09/20/2017 3:4 2 PM EDT Multiple sclerosis VARICELLA ZOSTER ANTIBODY, IGG Routine 09/20/2017 3:42 PM EDT Multiple sclerosis documented in this encounter Results * ASH Virus Antibody (09/20/2017 3:42 PM EDT) JCV Antibody See comment [facility] Comment: TESTS RESULTS--------UNITS--REF. RANGE--- [...] absence of JCV-specific antibodies. Test performed by [facility], ?[address] [facility], ?[place] [address] ? Consulting Solution Manager: Angelo Ramirez MD Test Reported by Cassidy Zaldivar, [facility], [address] [place] [address] Silviano Robertson M.D., Ph.D., Director of Laboratories , [facility] [id number] Blood specimen (specimen) 09/20/2017 3:42 PM EDT 09/21/2017 11:42 AM EDT Narrative Resulting Agency Comment Spec In Lab Mike Perez III, MD LAB SEND OUT CRISTHIAN CAR Performing Organization Address City/State/[facility] Co de Phone Number [facility] [place] [address] * Varicella zoster Antibody, IgG (09/20/2017 3:42 PM EDT) Varicella Zoster Antibody IgG Pos [facility] Blood specimen (specimen) 09/20/2017 3:42 PM EDT 09/21/2017 7:38 AM EDT Narrative Resulting Agency Comment Spec In Lab Mike Perez III, MD IMMUNOLOGY ORDERA BLES [facility] [place] [address] documented in this encounter Visit Diagnoses Diagnosis Multiple sclerosis documented in this encounter Care Teams Spanish Tutor Relationship Specialty Start Date End Date Nadine Mcduffie MD [address] [place] [address] PCP - General Family Medicine 03/27/17 documented as of this encounter
--- OUTSIDE RECORDS SUMMARY | 2024-05-22 19:43 | XMS_ITS | Encounter Summary ---
[place] [address] Care Team Providers Care Benefits Coordinator Name Role Phone Nadine Mcduffie MD Primary Care Provider [phone] Encounter Details Date Type Department Care Team ([facility] Contact Info) Description 07/21/2017 10:00 AM EST [place] [address] Social History Tobacco Use Types Packs/Day Years [...] Sign Reading Time Taken Comments Blood Pressure - - Pulse 106 07/21/2017 9:50 AM EST Temperature - - Respiratory Rate - - Oxygen Saturation 98% 07/21/2017 9:50 AM EST Inhaled Oxygen Concentration - - Weight 106.9 kg (235 lb 9.6 oz) 07/21/2017 9:50 AM EST Height 162.6 cm (5' 4) 07/21/2017 9:50 AM EST Body Mass Index 40.44 07/21/2017 9:50 AM EST documented in this encounter Plan of Treatment Not on file documented as of this encounter Visit Diagnoses Not on filedocumented in this encounter Care Teams Benefits Coordinator Relationship Specialty Start Date End Date Nadine Mcduffie MD [address] [place] [address] PCP - General Family Medicine 03/27/17 documented as of this encounter
--- OUTSIDE RECORDS SUMMARY | 2024-05-22 19:43 | XMS_ITS | Encounter Summary ---
Author Organization [facility] [place] [address] Care Team Providers Care Circus Rider Name Role Phone Nadine Mcduffie MD Primary Care Provider [phone] Reason for Visit * Reason Onset Date Comments Prior Authorization 12/11/2017 COPAXONE Encounter Details Date Type Department [facility] Description 12/11/2017 [place] [address] Mike Perez III, MD [facility] [place] [address] Prior Authorization (COPAXONE) Social History Tobacco Use Types Packs/Day Years [...] Telephone Encounter - Greta Neely RN - 12/11/2017 12:22 PM EDT [facility]oned [facility] PA was done on 12/01/17. Staff stated they needed new rx. I explained one was sent over directly from our clinic last week on 12/06/17. Then I got disconnected. I called [facility] back and spoke with a different airline security representative and reviewed above again. Pt takes last dose of medication today. They stated the pharmacy was working on the prescription and they will change the status to priority. I phoned pt and informed her of above and advised she call the pharmacy later to arrange for shipment. Plan; as above. Pt agrees with plan and verbalizes understanding. * Telephone Encounter - Piedad Marc - 12/11/2017 12:12 PM EDT SEE 12/01 PHONE PRIOR AUTH NOTE * Telephone Encounter - Yasmin Johnson - 12/11/2017 9:25 AM EDT Caller: Aria If not Pt / Relation to pt: Caller Contact Number: [phone] Medication requiring PA: copaxone Pharmacy Coverage Company: [employer] [facility] Coverage ID #: [id number] Pharmacy Coverage [employer] Pharmacy used by patient: [facility] BIN#: PCN# : Before 2:30pm - Informed caller that nurse will call back by the end of the day After 230 pm - Informed caller that if the nurse does not call back by the end of the day they willbe called tomorrow AM - Best number for tomorrow am: documented in this encounter Plan of Treatment Not on file documented as of this encounter Visit Diagnoses Not on filedocumented in this encounter Care Teams Circus Rider Relationship Specialty Start Date End Date Nadine Mcduffie MD [address] [place] [address] PCP - General Family Medicine 03/27/17 documented as of this encounter
--- OUTSIDE RECORDS SUMMARY | 2024-05-22 19:43 | XMS_ITS | Encounter Summary ---
[place] [address] Care Team Providers Care Personal Finance Instructor Name Role Phone Nadine Mcduffie MD Primary Care Provider [phone] Reason for Visit * Reason Onset Date Comments Other 10/17/2017 Encounter Details Date Type Department Care Team ([facility] Contact Info) Description 10/17/2017 [place] [address] Mike Perez III, MD [facility] [place] [address] Other Social History Tobacco Use Types Packs/Day [...] Telephone Encounter - Greta Neely RN - 10/17/2017 12:[address] Perez has reviewed and is aware. * Telephone Encounter - Greta Neely RN - 10/17/2017 9:59 AM EDT We received notification from [employer] that on 10/10 pt reported feeling of sadness I phoned pt to discuss. She states she is doing well. She will start the copaxone . She state she is just feeling sad with the new diagnosis of MS but states I am having the typical response to a new diagnosis. Pt instructed to call for any persistent or worsening symptoms. Plan; as above and pt agrees with plan and verbalizes understanding. documented in this encounter Plan of Treatment Not on file documented as of this encounter Visit Diagnoses Not on filedocumented in this encounter Care Teams Personal Finance Instructor Relationship Specialty Start Date End Date Nadine Mcduffie MD [address] [place] [address] PCP - General Family Medicine 03/27/17 documented as of this encounter
--- OUTSIDE RECORDS SUMMARY | 2024-05-22 19:43 | XMS_ITS | Encounter Summary ---
[place] [address] Care Team Providers Care Addressing Machine Operator Name Role Phone Nadine Mcduffie MD Primary Care Provider [phone] Reason for Visit * Reason Onset Date Comments Other 08/23/2017 Encounter Details Date Type Department Care Team ([facility] Contact Info) Description 08/23/2017 Tele[place] [address] Brianna Collado MD [facility] [place] [address] Other Social History Tobacco Use Types Packs/Day [...] Telephone Encounter - Emily Phelps RN - 08/24/2017 3:23 PM EST Called patient to inform her that Dr Collado has written a letter for her. Patient is still very worried about losing her job at this time. She will pick the letter up at tomorrow morning. * Telephone Encounter - Emily Phelps RN - 08/23/2017 10:12 AM EST Reason for Call: Coordination issues/job performance Patient Report: Patient states that when she tries to stand up from a chair her balance is off, it takes some time for things to right themselves, but they do. This has happened in the past, but she is now wondering if this could be related to the possible diagnosis of MS. Advised that this is possibly related to this. She is scheduled to see Dr Perez 09/07/17, she has follow-up with Dr Collado 08/04 02/17. Patient states that since the onset of the symptoms she has been seeing neurology for her work performance siddiqui been affected. She does not want to stop working or lose her job. She met with her immediate supervisor order takers yesterday and is worried that there is concern in her ability to do her job. She is wondering if there is anything that we can do to help her employer understand that her medical condition can be affecting her job performance and she may require some accommodations. Advised patient that she should reach out to the HR department at her employer to discuss FMLA as this is paperwork that can be completed by her provider that will protect her job. Patient is also wondering if in the mean time Dr Collado might be able to write something for her. Plan/Intervention/Follow Up - Report forwarded to Dr Collado for review and comment. Pt/caller aware they will be called back with input when available and to call back in the interim if additional questions or change arise before they hear back from this office. Pt/caller agreeable to this plan. * Telephone Encounter - Vonda Mahoney Radha - 08/23/2017 9:24 AM EST Caller: Aria Best time to reach caller: Midday Before 2:30pm - Informed caller that nurse will call back by the end of the day Best number to reach caller: [phone] Reason for call: Patient called. She has some questions regarding symptoms that she is having with her injury and the medication. Please call to discuss. documented in this encounter Plan of Treatment Not on file documented as of this encounter Visit Diagnoses Not on filedocumented in this encounter Care Teams Addressing Machine Operator Relationship Specialty Start Date End Date Nadine Mcduffie MD [address] [place] [address] PCP - General Family Medicine 03/27/17 documented as of this encounter
--- OUTSIDE RECORDS SUMMARY | 2024-05-22 19:43 | XMS_ITS | Encounter Summary ---
[place] [address] Care Team Providers Care Home Performance Consultant Name Role Phone Nadine Mcduffie MD Primary Care Provider [phone] Reason for Visit * Reason Comments Procedure 30 minute out patien t sleep deprived EEG Encounter Details Date Type Department Care Team (Latest Contact Info) Description 06/01/2017 2:02 PM EST - 06/01/2017 11:59 PM EST Hospital [place] [id number] Myoclonus Discharge Disposition: Home Social History Tobacco [...] as needed. 120 mL 1 11/26/2014 01/23/2020 levothyroxine (SYNTHROID) 50 mcg tabletIndications:Hyp othyroidism Take 1 tablet by mouth daily. 90 tablet 3 11/05/2012 06/14/2017 documented as of this encounter Procedure Notes * Steven Chicas MD - 06/01/2017 3:10 PM ESTAssociated Order(s): EEG AWAKE OR DROWSY Procedure(s): EEG; INCLUDING RECORDING AWAKE AND DROWSY PRFM Pre-Procedure Diagnose(s): Myoclonus [facility] Department of Neurology Out patient EEG Report Name of the Patient: Aria Figueroa Date of : 1980 Date of Service: 06/01/2017 Referring physician: Dr. Brianna Collado PCP: Dr. 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 MEDICATIONS: Current Outpatient Prescriptions Medication Sig Dispense Refill ??? venlafaxine (EFFEXOR-XR) 150 mg Capsule, Sust. Release 24 hr Take 1 capsule by mouth daily. [id number] to total 225mg daily - may substitute 3x75mg, 150+75mg, or 225mg tablet daily 90 capsule 3 ??? chlorhexidine (HIBICLENS) 4 % Liquid Wash affected areas once weekly as needed. 120 mL 1 ??? levothyroxine (SYNTHROID) 50 mcg tablet Take 1 tablet by mouth daily. 90 tablet 3 No current facility-administered medications for this encounter. METHODS: A 21 channel digitized electroencephalogram was performed in the [facility] Clinical Neurophysiology Laboratory. The 10/20 international system of electrode placement was used and bipolar and referential electrode montages were recorded. In addition to EEG the patient was monitored for EKGand lateral/vertical eye movements. Video was recorded during the session. The duration of the recording was 30 minutes. CALL CENTRE SUPERVISOR'S REPORT: Performed by: Adeline Patient was sleep deprived. Sleep was attained. Photic stimulation was performed. Hyperventilation was performed. Effort was was adequate. Movement and other artifact was not significant. Comments: cooperative. ELECTROENCEPHALOGRAPHER'S REPORT: Background During the awake state with the eyes closed the background consisted of a normal amplitude, 10 Hz posterior reactive rhythm that attenuated appropriately with eye opening. Beta activity was distributed diffusely with an anterior predominance. There was a normal anterior-posterior voltage gradient. With eye opening the background activity changed to a low voltage mixture of alpha, beta, and occasional theta range frequencies. There were no significant asymmetries of background activity noted. Sleep Stage II sleep was obtained and consisted of symmetrical sleep spindles and vertex sharp waves. Hyperventilation Hyperventilation did not result in diffuse slowing of the background activity. No appearance of abnormal activity. Photic Stimulation Photic stimulation using a step-alvarado increase in photic frequency varying from 1-21 Hertz resulted in bilateral driving responses at 5-11 Hertz but no appearance of abnormal activity. Abnormal EEG Activity None EKG EKG revealed normal sinus rhythm. PRIOR EEG: No previous EEG reports were available. INTERPRETATION: This EEG is normal during the awake and sleep states as well as during the activation procedures ofhyperventilation and photic stimulation. CLINICAL CORRELATION: Normal EEG. No epileptic activity was seen. Sissy Dobson MD PGY-2 Neurology Resident Pager # [phone] 06/01/2017 10:35 PM. CC: Nadine Mcduffie MD EPILEPSY ATTENDING ADDENDUM - I reviewed the EEG with the Neurology Resident, and I agree with the interpretation as documented. Steven Chicas MD, PhD Litigation Claim Representative of Neurology [facility] [place] Clinical Neurophysiology Laboratory documented in this encounter Plan of Treatment Not on file documented as of this encounter Procedures Procedure Name Priority Date/Time Associated Diagnosis Comments EEG; INCLUDING RECORDING AWAKE AND DROWSY PRFM Routine 06/02/2017 6:21 PM EST Myoclonus documented in this encounter Results * EEG; INCLUDING RECORDING AWAKE AND DROWSY PRFM (06/02/2017 6:21 PM EST) Narrative Steven Chicas MD - 06/02/2017 6:21 PM EST Steven Chicas MD ? 06/02/2017 ??6:21 PM [facility] Department of Neurology Out patient ??EEG Report Name of the Patient: ??Aria Figueroa Date of : ?1980 Date of Service: ?06/01/2017 Referring physician: ?Dr. Brianna Collado ? PCP: ??Dr. 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 MEDICATIONS: Current Outpatient Prescriptions Medication Sig Dispense Refill ? ? venlafaxine (EFFEXOR-XR) 150 mg Capsule, Sust. Release 24 hr Take 1 capsule by mouth daily. Add 75mg to total 225mg daily - may substitute 3x75mg, 150+75mg, or 225mg tablet daily 90 capsule 3 ? ? chlorhexidine (HIBICLENS) 4 % Liquid Wash affected areas once weekly as needed. 120 mL 1 ? ? levothyroxine (SYNTHROID) 50 mcg tablet Take 1 tablet by mouth daily. 90 tablet 3 No current facility-administered medications for this encounter. ?? METHODS: A 21 channel digitized electroencephalogram was performed in the [facility] Clinical Neurophysiology Laboratory. The 10/20 international system of electrode placement was used and bipolar and referential electrode montages were recorded. ??In addition to EEG the patient was monitored for EKG and lateral/vertical eye movements. Video was recorded during the session. The duration of the recording was 30 minutes. CALL CENTRE SUPERVISOR'S REPORT: Performed by: Adeline Patient was sleep deprived. Sleep was attained. Photic stimulation was performed. Hyperventilation was performed. Effort was was adequate. Movement and other artifact was not significant. Comments: cooperative. ELECTROENCEPHALOGRAPHER'S REPORT: Background During the awake state with the eyes closed the background consisted of a normal amplitude, 10 Hz posterior reactive rhythm that attenuated appropriately with eye opening. Beta activity was distributed diffusely with an anterior predominance. There was a normal anterior-posterior voltage gradient. With eye opening the background activity changed to a low voltage mixture of alpha, beta, and occasional theta range frequencies. There were no significant asymmetries of background activity noted. Sleep Stage II sleep was obtained and consisted of symmetrical sleep spindles and vertex sharp waves. Hyperventilation Hyperventilation did not result in diffuse slowing of the background activity. No appearance of abnormal activity. Photic Stimulation Photic stimulation using a step-alvarado increase in photic frequency varying from 1-21 Hertz resulted in bilateral driving responses at 5-11 Hertz but no appearance of abnormal activity. Abnormal EEG Activity None EKG EKG revealed normal sinus rhythm. PRIOR EEG: No previous EEG reports were available. INTERPRETATION: This EEG is normal during the awake and sleep states as well as during the activation procedures of hyperventilation and photic stimulation. CLINICAL CORRELATION: Normal EEG. No epileptic activity was seen. Sissy Dobson MD PGY-2 Neurology Resident Pager # [phone] 06/01/2017 10:35 PM. CC: Nadine Mcduffie MD EPILEPSY ATTENDING ADDENDUM - I reviewed the EEG with the Neurology Resident, and I agree with the interpretation as documented. Steven Chicas MD, PhD Litigation Claim Representative of Neurology [facility] Clinical Neurophysiology Laboratory Brianna Collado MD NEUROLOGY ORDERABL ES documented in this encounter Visit Diagnoses Diagnosis Myoclonus documented in this encounter Care Teams Home Performance Consultant Relationship Specialty Start Date End Date Nadine Mcduffie MD [address] [place] [address] PCP - General Family Medicine 03/27/17 documented as of this encounter
--- OUTSIDE RECORDS SUMMARY | 2024-05-22 19:43 | XMS_ITS | Encounter Summary ---
Author Organization [facility] Address [facility] [place] [address] Care Team Providers Care Fairing Man Name Role Phone Nadine Mcduffie MD Primary Care Provider [phone] Encounter Details Date Type Department Care Team ([facility] Contact Info) Description 09/21/2017 10:30 AM EDT [place] [address] Mike Perez III, MD [facility] [place] [address] Multiple sclerosis Social History Tobacco Use Types [...] Sign Reading Time Taken Comments Blood Pressure 133/77 09/21/2017 9:56 AM EDT Pulse 92 09/21/2017 9:56 AM EDT Temperature - - Respiratory Rate - - Oxygen Saturation - - Inhaled Oxygen Concentration - - Weight 105.2 kg (232 lb) 09/21/2017 9:56 AM EDT Height 163.8 cm (5' 4.5) 09/21/2017 9:56 AM EDT reported Body Mass Index 39.21 09/21/2017 9:56 AM EDT documented in this encounter Patient Instructions * Patient Instructions* Mike Perez III, MD - 09/21/2017 10:30 AM EDT Your MRI scan of your cervical and thoracic spine showed lesions consistent with MS. We talked about starting a medication called Copaxone to reduce your risk of future MS relapses. I do not think that this medication should interfere with becoming . I do recommend seeing a counselor to help with your stress and the grief process of being diagnosedwith MS. I can see you back in clinic in about 2-3 months. Mike Perez III, MD documented in this encounter Progress Notes * Mike Perez III, MD - 09/21/2017 10:30 AM EDT [facility] Follow-Up Visit Dear Nadine Mcduffie MD, I saw Aria Figueroa in clinic today in follow-up for multiple sclerosis. She was unaccompanied at today's visit. Below is my progress note with impression and plan. Please do not hesitate to call with any questions. Appointment time: 10:45-11:07 (total 22 minutes) DISEASE SUMMARY: Principal neurologic diagnosis: MS Diagnosis of MS: 2018 - onset possibly in 2014 CSF: 8 oligoclonal bands, elevated IgG index and IgG synthesis rate Disease course at onset: relapsing Current disease course: relapsing Relapses: 10/2016 - R arm myoclonic jerks 2015 - R thigh numbness (possible relapse) EDSS: 2.5 MS Severity Score (EDSS and Disease Duration): 6.04 MSIS-29: 84 Treatment History Previous disease therapies: n/a Current disease therapies: none Imaging History Most recent MRI brain: 06/2017 Most recent MRI cervical spine: 09/21/2017 Most recent MRI thoracic spine: 09/21/2017 Interval History: Aria Figueroa was last seen in clinic on 09/07/2016 for initial consultation. At that time we discussed her diagnosis of MS and planned to obtain MRI scan of her C and T spine for further evaluationof overall MS lesion burden. We also briefly discussed MS medications. Since then, she denies any new symptoms. She continues to have difficulty with arm and head tremors. She has significant work stressors related to her work performance and recently discussing her diagnosis of MS. She wishes to continue to work. She does feel depressed, but no suicidal ideation. Sheis interested in seeing a counselor as this has helped in the past. She and her plan on doing in vitro fertilization. She has not yet had an appointment with areproductive medical transcriber. Current Medications: reviewed and updated in EMR Review of Systems A ROS was obtained, reviewed with the patient. Pertinent positives and negatives were included in the HPI. Physical Examination Most Recent Vitals: 09/21/17 0956 BP: 133/77 Pulse: 92 Full examination was deferred to discuss her MRI scans and treatment options. REVIEW OF IMAGING STUDIES: I reviewed the following studies: MRI cervical and thoracic spine: without and with contrast Date: 09/21/2017 Multiple sites of nonenhancing demyelination throughout the cervical and thoracic spine. Assessment: ICD-10-CM 1. Multiple sclerosis G35 Aria Figueroa is a 36 y.o. woman with recently (09/07/2017) diagnosed relapsing MS without activity or progression and not currently on a disease modifying therapy. She has low overall MS related disability but moderate MS lesion burden including several spinal cord lesions as noted on MRI scan from today. She plans on trying to become in the near future. In some women with very active MS I recommend delaying plans until the disease is better controlled. For Aria, I do not have this reservation. She could start on Copaxone - category B. I would not start her on an interferon, fingolimod, dimethyl fumarate as this are not indicated during . Her diseaseis not active enough to warrant starting Tysabri at this time. She is in agreement with starting Copaxone. Her arm and head tremors are unlikely to be related to her MS. Both Dr. Collado and I think that this may be pscyhomotor phenomenon due to her depression and significant stressors. I discussed this at length with Aria. Treatment Plan: 1. Enrollment form for Copaxone completed 2. Recommend that s Diagnostic/Monitoring Plan: 1. Plan for repeat MRI brain in 6mo Follow-up: 2-3mo Thank you for allowing us to participate in Aria's healthcare. If you have questions or concerns please do not hesitate to call our clinic at [phone]. Mike Perez III, MD Head Of Marketing Analytics of Neurology [facility] A total of 18 minutes of this 22 minute [id number] interaction was spent in counseling on diagnosis, prognosis, and medication and symptom management. 8:51 PM 09/23/2017 documented in this encounter Plan of Treatment Not on file documented as of this encounter Visit Diagnoses Diagnosis Multiple sclerosis documented in this encounter Care Teams Fairing Man Relationship Specialty Start Date End Date Nadine Mcduffie MD [address] [place] [id number] PCP - General Family Medicine 03/27/17 documented as of this encounter
--- OUTSIDE RECORDS SUMMARY | 2024-05-22 19:43 | XMS_ITS | Encounter Summary ---
Author Organization [facility] [place] [address] Care Team Providers Care Dragsaw Operator Name Role Phone Nadine Mcduffie MD Primary Care Provider [phone] Encounter Details Date Type Department Care Team (Late st Contact Info) Description 10/17/2017 [place] [address] Mike Perez III, MD [facility] [address] Social History Tobacco Use Types Packs/Day Years [...] on filedocumented in this encounter Care Teams Dragsaw Operator Relationship Specialty Start Date End Date Nadine Mcduffie MD [address] [place] [address] PCP - General Family Medicine 03/27/17 documented as of this encounter
--- OUTSIDE RECORDS SUMMARY | 2024-05-22 19:43 | XMS_ITS | Encounter Summary ---
[place] [address] Care Team Providers Care Charge Account Identification Clerk Name Role Phone Nadine Mcduffie MD Primary Care Provider [phone] Reason for Visit * Reason Onset Date Comments Other 06/13/2017 Encounter Details Date Type Department Care Team ([facility] Contact Info) Description 06/13/2017 [place] [address] Brianna Collado MD [facility] [place] [address] Other Social History Tobacco Use Types Packs/Day [...] Telephone Encounter - Emily Phelps RN - 06/13/2017 11:41 AM EST Patient received message from Dr Collado and she would like to go ahead and start a medication forsymptoms management. She asks that this prescription be sent to the [facility] in [facility]. * Telephone Encounter - Sonja Perez - 06/13/2017 11:05 AM EST Caller: Patient Best time to reach caller: anytime except 1-2 Before 2:30pm - Informed caller that nurse will call back by the end of the day Best number to reach caller: [phone] Reason for call: Patient returned call to Dr. Collado/nurse from last week regarding starting a new medication. documented in this encounter Plan of Treatment Not on file documented as of this encounter Visit Diagnoses Not on filedocumented in this encounter Care Teams Charge Account Identification Clerk Relationship Specialty Start Date End Date Nadine Mcduffie MD [address] [place] [address] PCP - General Family Medicine 03/27/17 documented as of this encounter
--- OUTSIDE RECORDS SUMMARY | 2024-05-22 19:43 | XMS_ITS | Encounter Summary ---
Author [facility] [place] [address] Care Team Providers Care Net Finisher Name Role Phone Nadine Mcduffie MD Primary Care Provider [phone] Encounter Details Date Type Department Care Team (Late st Contact Info) Description 08/18/2017 [place] [address] Brianna Collado MD [facility] [place] [address] Abnormal brain MRI Social History Tobacco Use Types Packs/Day [...] as of this encounter Visit Diagnoses Diagnosis Abnormal brain MRI Nonspecific (abnormal) findings on radiological and other examination of skull and head documented in this encounter Care Teams Net Finisher Relationship Specialty Start Date End Date Nadine Mcduffie MD [address] [place] [address] PCP - General Family Medicine 03/27/17 documented as of this encounter
--- OUTSIDE RECORDS SUMMARY | 2024-05-22 19:43 | XMS_ITS | Encounter Summary ---
Author Organization [facility] Address [facility] [place] [address] Care Team Providers Care Hoop Flaring Machine Operator Name Role Phone Nadine Mcduffie MD Primary Care Provider [phone] Reason for Referral * Consultation (Routine) - Closed Specialty Diagnoses / Procedures Referred By Tonia argueta Referred To Contact Neurology Diagnoses Multiple sclerosis Brianna Collado MD [facility] [place] [address] Mike Perez III, MD [facility] [place] [address] Referral ID Status Reason Start Date Expiration Date V isits Requested Visits Authorized [id number] Closed Consult, Test & Treat 08/21/2017 08/21/2018 1 1 Encounter Details Date Type Department Care Team (Late st Contact Info) Description 08/21/2017 Tele[place] [address] Brianna Collado MD [facility] [place] [address] Social History Tobacco Use Types Packs/Day Years [...] encounter Miscellaneous Notes * Telephone Encounter - Brianna Collado MD - 08/21/2017 5:14 PM EST I spoke to the patient on the phone regarding her CSF results and possible MS diagnosis. She tells me her father in law and coworker have MS so she has some familiarity with the diagnosis. I explained I would be referring her to an MS specialist but I will also continue to see her until the movements are under better control. She is now up to 150mg BID of lamictal and may be having some improvement but the movements have not completely resolved. Brianna Collado MD [facility] Neurology-Movement Disorders documented in this encounter Plan of Treatment Scheduled Referrals Name Type Priority Associated Diagnoses Orde r Schedule Referral to Neurology Outpatient Referral Routine Multiple sclerosis Ordered: 08/21/2017 documented as of this encounter Visit Diagnoses Diagnosis Multiple sclerosis documented in this encounter Care Teams Hoop Flaring Machine Operator Relationship Specialty Start Date End Date Nadine Mcduffie MD [address] [place] [address] PCP - General Family Medicine 03/27/17 documented as of this encounter
--- OUTSIDE RECORDS SUMMARY | 2024-05-22 19:43 | XMS_ITS | Encounter Summary ---
Author [facility] [place] [address] Care Team Providers Care Asphalt Coater Name Role Phone Nadine Mcduffie MD Primary Care Provider [phone] Reason for Visit * Reason Onset Date Comments Other 10/23/2017 Encounter Details Date Type Department Care Team ([facility] Contact Info) Description 10/23/2017 [place] [address] Mike Perez III, MD [facility] [place] [address] Other Social History Tobacco Use Types Packs/Day [...] Telephone Encounter - Greta Neely RN - 10/23/2017 3:[address] Riggs: Let patient know that ear infections are NOT a side effect of copaxone. I phoned pt back and reviewed/instructed above per Dr. Riggs. Pt verbalizes understanding. * Telephone Encounter - Greta Neely RN - 10/23/2017 2:18 PM EDT I will forward to covering provider for review. * Telephone Encounter - Uyen Escamilla - 10/23/2017 1:58 PM EDT Caller: Aria If not Pt / Relation to pt: Best time to reach caller: anytime Before 2:30pm - Informed caller that nurse will call back by the end of the day Best number to reach caller: [phone] Reason for call: Patient called stating that she woke up yesterday with ear pain , she went to her PCP today and they confirmed an ear infection. PCP suggested patient to call as ear infections can be a side effect to glatiramer (COPAXONE) 40 mg/mL Syringe. Please call and advise documented in this encounter Plan of Treatment Not on file documented as of this encounter Visit Diagnoses Not on filedocumented in this encounter Care Teams Asphalt Coater Relationship Specialty Start Date End Date Nadine Mcduffie MD [address] [place] [address] PCP - General Family Medicine 03/27/17 documented as of this encounter
--- OUTSIDE RECORDS SUMMARY | 2024-05-22 19:43 | XMS_ITS | Encounter Summary ---
Author Organization [facility] [place] [address] Care Team Providers Care Front End Engineer Name Role Phone Nadine Mcduffie MD Primary Care Provider Encounter Details Date Type Department Care Team ([facility] Contact Info) Description 07/13/2017 [place] [address] Ted Hayden MD [facility] [place] [address] Social History Tobacco Use Types Packs/Day Years [...] encounter Miscellaneous Notes * Telephone Encounter - Ted Borjas MD - 07/13/2017 8:33 PM EST Called by patient regarding new LN finding and whether this could be SE from Lamictal. She is currently on lamotrigine 50 Qam and 50mg Qpm. She was instructed to uptirate by 50 every week with eventual goal dose of 300mg QD. She has developed a new right lymphadenopathy behind the right ear since yesterday. This is somewhat tender to palpation. No other LN findings elsewehre. No issues with swallowing or SOB. No tongue numbness. No other skin lesions or blisters noted. She is not currently sick and denies viral URI, diarrhea, cough, or SOB. Advised pt to monitor LN finding for now. If this is fast growing LN or if she develops new sx concerning for allergic reaction including SOB/tongue paresthesias, neck fullness, or if she develops skin rashes/blistering, pt was advised to come into ED for evaluation. Counseled on the risk of stevenjohnson syndr. What she has currently does not sound like this. Advised pt to continue lamotrigine as currently taking. Will cc Dr. Collado as well in case adjustment need to be made to uptitration plan. Ted Borjas MD 07/13/2017 Neurology resident, PGY-2 documented in this encounter Plan of Treatment Not on file documented as of this encounter Visit Diagnoses Not on filedocumented in this encounter Care Teams Front End Engineer Relationship Specialty Start Date End Date Nadine Mcduffie MD [address] [place] [address] PCP - General Family Medicine 03/27/17 documented as of this encounter
--- OUTSIDE RECORDS SUMMARY | 2024-05-22 19:44 | XMS_ITS | Encounter Summary ---
Author Organization [facility] [place] [address] Care Team Providers Care Insurance Adjuster Name Role Phone Fausto De León MD Primary Care Provider [phone] Reason for Visit * Reason Onset Date Comments Other 06/20/2011 Encounter Details Date Type Department Care Team ([facility] Contact Info) Description 06/20/[address] [facility] [place] [address] Fausto De León MD [facility] [place] [address] Other Social History Tobacco Use Types Packs/Day Years Used Date Smoking Tobacco: Former Cigarettes 1 15 1 - 04/11/2009 Smokeless Tobacco: Never Alcohol Use Standard Drinks/Week Comments Yes 0.8 (1 standard drink = 0.6 oz p ure alcohol) Sex and Gender Information Value Date Recorded Sex Assigned at Not on file Gender Identity Not on file Sexual Orientation Not on file documented as of this encounter Miscellaneous Notes * Telephone Encounter - Ysabel Kendall RN - 06/20/2011 2:27 PM EST Pt said she stopped taking Doxycycline for cat bite. Pt started med 06/13/11 and stopped it 06/17 because of nausea and vomiting. Pt said her hand is much improved, looks much better,swelling has gone. Pt has no fever.Pt sais henrique about a quarter inch itchy lump under the scab of the bite puncture. Pt still taking Metronidazole Dr De León informed. OK to stop Doxycycline. Pt will call if any redness appears, any red sttreaking, swelling , fever, or swollen lymph nodes under arm occur. documented in this encounter Plan of Treatment Not on file documented as of this encounter Visit Diagnoses Not on filedocumented in this encounter Care Teams Insurance Adjuster Relationship Specialty Start Date End Date Fausto De León MD [facility] [place] [address] PCP - General 02/10/11 08/02/11 documented as of this encounter
--- OUTSIDE RECORDS SUMMARY | 2024-05-22 19:44 | XMS_ITS | Encounter Summary ---
Author Organization [facility] [place] [address] Care Team Providers Care Unmanned Equipment Operator Name Role Phone Nadine Mcduffie MD Primary Care Provider [phone] Reason for Visit * Reason Comments Establish Care IUD removal * Consultation (Routine) - Closed Specialty Diagnoses / Procedures Referred By Tonia argueta Referred To Contact Obstetrics and Gynecology Diagnoses IUD removal Nadine Mcduffie MD [address] [place] [address] [facility] [address] [place] [address] Referral ID Status Reason Start Date Expiration Date V isits Requested Visits Authorized [id number] Closed Consult, [facility] PCP Updated and/or Approved 04/06/2017 04/06/2018 6 6 Encounter Details Date Type Department Care Team (Latest Contact Info) Description 05/05/2017 10:00 AM EDT Office Visit Obstetrics [place] [address] Paulina Winston APRN [facility] [place] [address] Malpositioned intrauterine device (IUD), initial encounter (Primary Dx); Encounter for preconception consultation Social History Tobacco Use Types Packs/Day Years Used Date Smoking Tobacco: Every Day Cigarettes 0.3 15 Started: 04/11/1994; Last attempted to quit: [...] Sign Reading Time Taken Comments Blood Pressure 128/76 05/05/2017 10:03 AM EDT Pulse 85 05/05/2017 10:03 AM EDT Temperature 36.4 ??C (97.6 ??F) 05/05/2017 10:03 AM E DT Respiratory Rate 14 05/05/2017 10:03 AM EDT Oxygen Saturation 97% 05/05/2017 10:03 AM EDT Inhaled Oxygen Concentration - - Weight 104.3 kg (229 lb 15 oz) 05/05/2017 10:03 AM EDT Height 164 cm (5' 4.57) 05/05/2017 10:03 AM EDT Body Mass Index 38.78 05/05/2017 10:03 AM EDT documented in this encounter Progress Notes * Paulina Winston, SERVICE DESK SPECIALIST - 05/05/2017 10:00 AM EDT CC: Paragard IUD removal and preconception counseling Subjective: Aria Gracia is a 36 y.o. female who is here today to have her Paragard IUD removed. This was placed 6 years ago. Aria and her have been discussing having a child together and she wantedthe IUD removed. Her had a vasectomy done 11 years ago (he has a 14yo daughter and 11yo son). She is inquiring about vasectomy removal vs. Sperm harvesting. Aria tried having the IUd removedwith her PCP recently, but they were unable to remove the device. Aria reports regular menstrual cycles every month. She states that she can feel ovulation, so knows that she regularly ovulates as well. She has had 1 other , which she had a D&C procedure for termination in her 20's. Patient's last menstrual period was 04/06/2017 (exact date). Patient Active Problem List Diagnosis Date Noted ??? Body mass index (BMI) of 36.0-36.9 in adult 12/19/2013 ??? Hypothyroidism 04/11/2011 ??? Anxiety 02/16/2011 Past Medical History: Diagnosis Date ??? Anxiety 02/16/2011 ??? Gallstone ??? Hypothyroidism 04/11/2011 ??? Varicella Past Surgical History: Procedure Laterality Date ??? CHOLECYSTECTOMY, LAPAROSCOPIC 2015 Outpatient Prescriptions Marked as Taking for the 05/05/17 encounter (Office Visit) with Paulina Winston APRN Medication Sig Dispense Refill ??? venlafaxine (EFFEXOR-XR) 150 mg Capsule, Sust. Release 24 hr Take 1 capsule by mouth daily. [id number] to total 225mg daily - may substitute 3x75mg, 150+75mg, or 225mg tablet daily 90 capsule 3 ??? chlorhexidine (HIBICLENS) 4 % Liquid Wash affected areas once weekly as needed. 120 mL 1 ??? [DISCONTINUED] Soap Bar Use twice weekly to affected areas. 1 Bar 2 ??? levothyroxine (SYNTHROID) 50 mcg tablet Take 1 tablet by mouth daily. 90 tablet 3 Allergies Allergen Reactions ??? Hydrocodone-Acetaminophen mood lability ??? Sulfa (Sulfonamide Antibiotics) edema ??? Penicillins Rash Objective: BP 128/76 Pulse 85 Temp 36.4 ??C (97.6 ??F) (Temporal) Resp 14 Ht 164 cm (5' 4.57) Wt (!) 104.3 kg (229 lb 15 oz) LMP 04/06/2017 (Exact Date) SpO2 97% BMI 38.78 kg/m2 General: Appears healthy and well nourished. No apparent distress. Pelvic Exam: Urethra: No lesions. Normal opening. Vulva: No lesions. Normal hair distribution. Vagina: [place], moist, rugated. Normal discharge noted. No lesions. No cystocle, rectocele or prolapse. Cervix: A long Leonard speculum was used. Cervix is posterior, pink and smooth. No abnormal discharge. IUD strings visible at the os. Procedure: Prior to the start of this procedure, I confirmed the patient's identity, intended procedure and availability of equipment needed. Cervix visualized w/ speculum in place. Strings visible at the os. Attempted to remove the IUD withpressure, but the IUD remains in place. Aria tolerated this attempt well. Assessment/Plan: Likely embedded IUD. I counseled Aria on needing the IUD removed in the OR. We discussed having a pelvic U/S prior to in order to clearly identify the IUD's positioning. She reports severe pain withinsertion, so wanting to rule out perforation. We will schedule U/S and preop for the same day. Aria is in agreement with this plan. Preconception Counseling. I encouraged Aria to call [facility] for their ROBERT program. We discussed that avasectomy reversal will likely not be the best option, given her age and the amount of time the vasectomy has been present. I discussed with Aria that she can start working on smoking cessation and weight loss now. She is very motivated to improve her health. We reviewed risks of AMA and obesity in and I gave her a handout for review. I advised Aria to start on vitamins with a minimum of 400mcg of folic acid a day. We reviewed her current medications and the safety of theseduring the . Her depression/anxiety medication in Category C, but I discussed slowly trying to wean with her PCP and that some women need these medications and she if she cannot wean that this is ok to use in if needed. Aria has no other questions at this time. PAULINA WINSTON APRN 05/05/2017 documented in this encounter Plan of Treatment Not on file documented as of this encounter Results * (ABNORMAL) US Transvaginal [...] 03:35 pm) PATIENT INFO: ID #: ? [id number] ?: ??[birth year] (36 yrs) Name: ? ARIA GRACIA ? Visit Date: 07/18/2017 03:08 pm PERFORMED BY: Performed By: ? Rose Titus RDMS Attending: ?Zhen MADSEN, Jayme Menard Resident: ? Orlando MADSEN, Jarvis Jesus Referred By: ?PAULINA WINSTON Location: ? [place] SERVICE(S) PROVIDED: ??UTV - Transvaginal - [id number] ?[id number] ??U3D - ??3D rendering with interpretation - [id number] ? [id number] INDICATIONS: ??Unable to remove Paragard IUD; please [...] ?Normal appearance Resulting Agency Comment Unexpected Finding Paulina Winston APRN IMG PELVI C ORDERABLES documented in this encounter Visit Diagnoses Diagnosis Malpositioned intrauterine device (IUD), initial encounter- Primary Encounter for preconception consultation Malpositioned intrauterine device (IUD), initial encounter documented in this encounter Care Teams Unmanned Equipment Operator Relationship Specialty Start Date End Date Nadine Mcduffie MD [address] [place] [address] PCP - General Family Medicine 03/27/17 documented as of this encounter
--- OUTSIDE RECORDS SUMMARY | 2024-05-22 19:44 | XMS_ITS | Encounter Summary ---
Author Organization [place] [address] Care Team Providers Care Bit Gatherer Name Role Phone Fausto De León MD Primary Care Provider [phone] Reason for Visit * Reason Comments Animal Bite cat Encounter Details Date Type Department Care Team (Late Contact Info) Description 06/13/2011 10:57 AM EST - 06/13/2011 2:17 PM EST [place] [address] Cody Campuzano MD [facility] [place] [address] Cat bite Discharge Disposition: Home Social History Tobacco Use [...] Sign Reading Time Taken Comments Blood Pressure 120/79 06/13/2011 2:16 PM EST Pulse 85 06/13/2011 2:16 PM EST Temperature 37 ??C (98.6 ??F) 06/13/2011 2:16 PM EST Respiratory Rate 16 06/13/2011 2:16 PM EST Oxygen Saturation 98% 06/13/2011 2:16 PM EST Inhaled Oxygen Concentration - - Weight - - Height - - Body Mass Index - - documented in this encounter Discharge Instructions * Discharge Instructions* Jacqueline Muir MD - 06/13/2011 1:59 PM EST Please follow the attached instructions and take your antibiotics as prescribed. If the wound worsens or if you experience fevers, chills or any other symptom that you find concerning, you should return to the emergency department immediately. You should follow-up with your primary care physician in 3-4 days. * Attachments The following attachments cannot be sent through Care Everywhere. * ANIMAL BITES: AFTER YOUR VISIT TO THE EMERGENCY ROOM ([facility]) documented in this encounter Medications at Time of Discharge Medication Sig Dispensed Refills Start Date End Date doxycycline (VIBRAMYCIN) 100 mg capsule Take 1 capsule by mouth 2 times daily for 14 days. 28 capsule 0 06/13/2011 06/27/2011 metroNIDAZOLE (FLAGYL) 500 mg tablet Take 1 tablet by mouth 3 times daily for 14 days. 42 tablet 0 06/13/2011 06/27/2011 levothyroxine (SYNTHROID) 50 mcg tablet Take 1 tablet by mouth daily. 30 tablet 1 05/25/2011 01/03/2012 Eflornithine 13.9 % Crea Apply topically 2 times daily. At least 8 hours apart, do not rinse for 4 hours, discontinue if irritation occurs 30 g 2 04/11/2011 11/05/2012 venlafaxine (EFFEXOR-XR) 150 mg 24 hr capsule Take 1 capsule by mouth daily. 30 capsule 3 04/05/2011 08/23/2011 ALPRAZolam (XANAX) 0.25 mg tablet Take 0.25 mg by mouth as needed. 08/03/2011 vitamin E 400 unit capsule Take 400 Units by mouth daily. 11/05/2012 documented as of this encounter ED Notes * Cody Campuzano MD - 06/13/2011 12:32 PM ESTAssociated Order(s): INCISION AND DRAINAGE - ED ONLY Chief Complaint Patient presents with ??? Animal Bite cat HPI 30 yo female who was bitten by her cat last night on the and has since developed pain, redness and swelling at the site that has increased dramatically since this morning. She does have some associated numbness of her right forearm. She says that the bite was quite deep but did not bleed for quite some time. She denies any fevers or chills. Pus is able to be expressed from the site. She is fairlyconfident that the tooth did not break off. No decreased rom. Her cat is domesticated and has been vaccinated and she did have a tetanus shot within the last 6 months. Allergies Allergen Reactions ??? Sulfa (Sulfonamide Antibiotics) edema ??? Hydrocodone-acetaminophen mood lability ??? Penicillins Rash Review of Systems Constitutional: Negative. HENT: Negative. Eyes: Negative. Respiratory: Negative. Cardiovascular: Negative. Gastrointestinal: Negative. Genitourinary: Negative. Musculoskeletal: Negative. Skin: Positive for color change and wound. Neurological: Negative. Hematological: Negative. Psychiatric/Behavioral: Negative. BP 120/79 Pulse 85 Temp(Src) 37 ??C (98.6 ??F) (Oral) Resp 16 SpO2 98% LMP 05/20/2011 Physical Exam Nursing note and vitals reviewed. Constitutional: She appears well-developed and well-nourished. No distress. HENT: Head: Normocephalic and atraumatic. Eyes: EOM are normal. Pupils are equal, round, and reactive to light. Cardiovascular: Normal rate, regular rhythm and normal heart sounds. Pulmonary/Chest: Effort normal and breath sounds normal. Abdominal: Soft. Bowel sounds are normal. Musculoskeletal: No tenderness over extensor tendons of the injured hand. Skin: Lesion (Puncture wound that is not overlying the joint space. No pain with passive or active flexion or extension of the fingers or wrist. ) noted. She is not diaphoretic. Puncture wound on webspace on dorsum of R hand with expressible purulence and surrounding erythema. Incision/Drainage Date/Time: 06/13/2011 2:00 PM Performed by: JACQUELINE MUIR Authorized by: CODY CAMPUZANO Consent: Verbal consent obtained. Risks and benefits: risks, benefits and alternatives were discussed Consent given by: patient Patient understanding: patient states understanding of the procedure being performed Patient consent: the patient's understanding of the procedure matches consent given Procedure consent: procedure consent matches procedure scheduled Relevant documents: relevant documents present and verified Test results: test results available and properly labeled Site marked: the operative site was marked Imaging studies: imaging studies available Patient identity confirmed: verbally with patient Time out: Immediately prior to procedure a time out was called to verify the correct patient, procedure, equipment, office support clerk and site/side marked as required. Type: abscess Body area: upper extremity Location details: right hand Anesthesia: local infiltration Local anesthetic: lidocaine 1% with epinephrine Anesthetic total: 2 ml Scalpel size: 11 Incision type: single straight Complexity: simple Drainage: purulent and bloody Drainage amount: scant Wound treatment: wound left open Packing material: none Patient tolerance: Patient tolerated the procedure well with no immediate complications. MDM ED Course: Pt seen and examined. Sent for Xray of right hand and started on doxycycline as she is allergic to penicillin. Her wound was I+D'd with minimal return of pus and good bleeding. Her X-ray showed soft tissue swelling but no evidence of osseus involvement, no FB. No evidence joint space involvement, no evidence tenosynovitis at this time. Patient instructed to return if sx worsening. The pt was discharged on a 14 day course of doxycycline and metronidazole. Jacqueline Muir MD Resident 06/13/11 1346 ED ATTENDING NOTE: I reviewed *Alistair's note and agree with the almeida portions of the documented findings and plan of care. I performed an independent history and physical exam myself. I independently reviewed the labs, EKG, and radiographic studies. Cody Campuzano MD 06/13/11 1525 * Gloria Gómez RN - 06/13/2011 11:48 AM EST Pt amb to [facility], ice to hand. documented in this encounter Miscellaneous Notes * Discharge Summary - Provider, Scanning - 06/14/2011 11:15 AM EST * Miscellaneous - Provider, Scanning - 06/13/2011 12:40 PM EST * ED Triage - Gloria Gómez RN - 06/13/2011 11:19 AM EST Pt bite by her cat last night on her right hand. Today hand red and swollen and painful. documented in this encounter Plan of Treatment Not on file documented as of this encounter Procedures Procedure Name Priority Date/Time Associated Diagnosis Comments DRAIN SKIN ABSCESS SIMPLE - ED ONLY Routine 06/13/2011 2:41 PM EST ABSCESS/WOUND ASPIRATE CULTURE Routine 06/13/2011 1:49 PM EST XR HAND DIAGNOSTIC MINIMUM 3 VIEWS Routine 06/13/2011 1:10 PM EST documented in this encounter Results * DRAIN SKIN ABSCESS SIMPLE - ED ONLY (06/13/2011 2:41 PM EST) Narrative 06/13/2011 2:41 PM EST WHITE, CODY T ? 06/13/2011 ? 3:25:38 PM Chief Complaint Patient presents with ? ? Animal Bite cat HPI 30 yo female who was bitten by her cat last night on the and has since developed pain, redness and swelling at the site that has increased dramatically since this morning. ??She does have some associated numbness of her right forearm. ??She says that the bite was quite deep but did not bleed for quite some time. ??She denies any fevers or chills. ??Pus is able to be expressed from the site. She is fairly confident that the tooth did not break off. ?? No decreased rom. ??Her cat is domesticated and has been vaccinated and she did have a tetanus shot within the last 6 months. ?? Allergies Allergen Reactions ? ? Sulfa (Sulfonamide Antibiotics) edema ? ? Hydrocodone-acetaminophen mood lability ? ? Penicillins Rash Review of Systems Constitutional: Negative. ?? HENT: Negative. ?? Eyes: Negative. ?? Respiratory: Negative. ?? Cardiovascular: Negative. ?? Gastrointestinal: Negative. ?? Genitourinary: Negative. ?? Musculoskeletal: Negative. ?? Skin: Positive for color change and wound. Neurological: Negative. ?? Hematological: Negative. ?? Psychiatric/Behavioral: Negative. ?? BP 120/79 Pulse 85 Temp(Src) 37 ??C (98.6 ??F) (Oral) Resp 16 SpO2 98% LMP 05/20/2011 Physical Exam Nursing note and vitals reviewed. Constitutional: She appears well-developed and well-nourished. No distress. HENT: Head: Normocephalic and atraumatic. Eyes: EOM are normal. Pupils are equal, round, and reactive to light. Cardiovascular: Normal rate, regular rhythm and normal heart sounds. ?? Pulmonary/Chest: Effort normal and breath sounds normal. Abdominal: Soft. Bowel sounds are normal. Musculoskeletal: ? No tenderness over extensor tendons of the injured hand. Skin: Lesion (Puncture wound that is not overlying the joint space. ??No pain with passive or active flexion or extension of the fingers or wrist. ??) noted. She is not diaphoretic. ? Puncture wound on webspace on dorsum of R hand with expressible purulence and surrounding erythema. Incision/Drainage Date/Time: 06/13/2011 2:00 PM Performed by: JACQUELINE MUIR Authorized by: CODY CAMPUZANO Consent: Verbal consent obtained. Risks and benefits: risks, benefits and alternatives were discussed Consent given by: patient Patient understanding: patient states understanding of the procedure being performed Patient consent: the patient's understanding of the procedure matches consent given Procedure consent: procedure consent matches procedure scheduled Relevant documents: relevant documents present and verified Test results: test results available and properly labeled Site marked: the operative site was marked Imaging studies: imaging studies available Patient identity confirmed: verbally with patient Time out: Immediately prior to procedure a time out was called to verify the correct patient, procedure, equipment, office support clerk and site/side marked as required. Type: abscess Body area: upper extremity Location details: right hand Anesthesia: local infiltration Local anesthetic: lidocaine 1% with epinephrine Anesthetic total: 2 ml Scalpel size: 11 Incision type: single straight Complexity: simple Drainage: purulent and bloody Drainage amount: scant Wound treatment: wound left open Packing material: none Patient tolerance: Patient tolerated the procedure well with no immediate complications. [facility] ED Course: ?? Pt seen and examined. Sent for Xray of right hand and started on doxycycline as she is allergic to penicillin. ??Her wound was I+D'd with minimal return of pus and good bleeding. ??Her X-ray showed soft tissue swelling but no evidence of osseus involvement, no FB. ??No evidence joint space involvement, no evidence tenosynovitis at this time. ??Patient instructed to return if sx worsening. ??The pt was discharged on a 14 day course of doxycycline and metronidazole. ?? Jacqueline Muir MD Resident 06/13/11 1346 ED ATTENDING NOTE: I reviewed Dr. Munguia's note and agree with the almeida portions of the documented findings and plan of care. ??I performed an independent history and physical exam myself. ??I independently reviewed the labs, EKG, and radiographic studies. Procedure Note Cody Campuzano MD - 06/13/2011 12:32 PM EST Chief Complaint Patient presents with ? ? Animal Bite cat HPI 30 yo female who was bitten by her cat last night on the and has sincedeveloped pain, redness and swelling at the site that has increaseddramatically since this morning. She does have some associated numbnessof her right forearm. She says that the bite was quite deep but did notbleed for quite some time. She denies any fevers or chills. Pus is ableto be expressed from the site. She is fairly confident that the tooth didnot break off. No decreased rom. Her cat is domesticated and has beenvaccinated and she did have a tetanus shot within the last 6 months. Allergies Allergen Reactions ? ? Sulfa (Sulfonamide Antibiotics) edema ? ? Hydrocodone-acetaminophen mood lability ? ? Penicillins Rash Review of Systems Constitutional: Negative. HENT: Negative. Eyes: Negative. Respiratory: Negative. Cardiovascular: Negative. Gastrointestinal: Negative. Genitourinary: Negative. Musculoskeletal: Negative. Skin: Positive for color change and wound. Neurological: Negative. Hematological: Negative. Psychiatric/Behavioral: Negative. BP 120/79 Pulse 85 Temp(Src) 37 ??C (98.6 ??F) (Oral) Resp 16 [id number]% LMP 05/20/2011 Physical Exam Nursing note and vitals reviewed. Constitutional: She appears well-developed and well-nourished. Nodistress. HENT: Head: Normocephalic and atraumatic. Eyes: EOM are normal. Pupils are equal, round, and reactive to light. Cardiovascular: Normal rate, regular rhythm and normal heart sounds. Pulmonary/Chest: Effort normal and breath sounds normal. Abdominal: Soft. Bowel sounds are normal. Musculoskeletal: No tenderness over extensor tendons of the injured hand. Skin: Lesion (Puncture wound that is not overlying the joint space. Nopain with passive or active flexion or extension of the fingers or wrist.) noted. She is not diaphoretic. Puncture wound on webspace on dorsum of R hand with expressiblepurulence and surrounding erythema. Incision/Drainage Date/Time: 06/13/2011 2:00 PM Performed by: JACQUELINE MUIR Authorized by: CODY CAMPUZANO Consent: Verbal consent obtained. Risks and benefits: risks, benefits and alternatives were discussed Consent given by: patient Patient understanding: patient states understanding of the procedure beingperformed Patient consent: the patient's understanding of the procedure matchesconsent given Procedure consent: procedure consent matches procedure scheduled Relevant documents: relevant documents present and verified Test results: test results available and properly labeled Site marked: the operative site was marked Imaging studies: imaging studies available Patient identity confirmed: verbally with patient Time out: Immediately prior to procedure a time out was called to verifythe correct patient, procedure, equipment, office support clerk and site/sidemarked as required. Type: abscess Body area: upper extremity Location details: right hand Anesthesia: local infiltration Local anesthetic: lidocaine 1% with epinephrine Anesthetic total: 2 ml Scalpel size: 11 Incision type: single straight Complexity: simple Drainage: purulent and bloody Drainage amount: scant Wound treatment: wound left open Packing material: none Patient tolerance: Patient tolerated the procedure well with no immediatecomplications. MDM ED Course: Pt seen and examined. Sent for Xray of right hand and started ondoxycycline as she is allergic to penicillin. Her wound was I+D'd withminimal return of pus and good bleeding. Her X-ray showed soft tissueswelling but no evidence of osseus involvement, no FB. No evidence jointspace involvement, no evidence tenosynovitis at this time. Patientinstructed to return if sx worsening. The pt was discharged on a 14 daycourse of doxycycline and metronidazole. Jacqueline Muir MD Resident 06/13/11 1346 ED ATTENDING NOTE: I reviewed 's note and agree with the keyportions of the documented findings and plan of care. I performed anindependent history and physical exam myself. I independently reviewedthe labs, EKG, and radiographic studies. Cody Campuzano MD 06/13/11 1525 Cody Campuzano MD PROCEDURE/MINOR SURG ICAL ORDERABLES * Wound Aspirate/Abscess Culture Cat Bite; Hand, Right (06/13/2011 1:49 PM EST) Abscess/Wound Aspirate Culture ? Patient Name: ARIA GRACIA ?Ordered By: [id number] SU ? MR#: [id number] ?LOC: ??ED ? /Sex: ??1980 (30 years), ? Female ? PROCEDURE: Wound Aspirate/Abscess Culture ?SOURCE: Cat Bite ? COLLECTED: 06/13/2011 13:49 ? BODY SITE: Right Hand ? STARTED: 06/13/2011 14:27 ? STAINS / PREPARATIONS ? Gram Stain Report ? Verified:06/13/20 11 15:35 ? Few White Blood Cells seen ? Rare mixed bacterial morphotypes suggestive of normal cutaneous yasmeen ? FINAL REPORT ? Final Report ? Verified:06/15/20 11 11:49 ? Few Pasteurella multocida ? PRELIMINARY REPORT ? Preliminary Report ? Verified:06/15/20 11 09:58 ? Few Pasteurella multocida ? SUSCEPTIBILITY RESULTS ? JOSE MANUEL IGLESIAS Skin (tissue) specimen (specimen) STRUCTURE OF RIGHT HAND / Unknown 06/13/2011 1:49 PM EST 06/13/2011 2:27 PM EST Cody Campuzano MD MICROBIOLOGY - GENER AL ORDERABLES JOSE MANUEL IGLESIAS * XR HAND DIAGNOSTIC MINIMUM 3 VIEWS (06/13/2011 1:10 PM EST) Anatomical Region Laterality Modality Hand N/A Radiographic Adilene ging 06/13/2011 1:10 PM EST Narrative 06/14/2011 5:33 PM EST RIGHT HAND: INDICATION: ??Cat bite. TECHNIQUE: ??Three views of the right hand. ?? COMPARISON: ??None. ?? FINDINGS: ??The bones appear normally mineralized and aligned, with no focal osseous abnormality identified. ??Swelling of the soft tissues of the dorsum of the hand and the wrist, but no radiopaque foreign body or gross lucencies to suggest air within the soft tissues. Discussed with Dr. Jacqueline Muir at the time of interpretation. Procedure Note Mera Montes MD - 06/14/2011 RIGHT HAND: INDICATION: Cat bite. TECHNIQUE: Three views of the right hand. COMPARISON: None. FINDINGS: The bones appear normally mineralized and aligned, with nofocal osseous abnormality identified. Swelling of the soft tissues of thedorsum of the hand and the wrist, but no radiopaque foreign body or gross lucenciesto suggest air within the soft tissues. Discussed with Dr. Jacqueline Muir at the time of interpretation. Jacqueline Muir MD IMG DX ORDERABLES documented in this encounter Visit Diagnoses Diagnosis Cat bite Bite of other animal except arthropod documented in this encounter Administered Medications Inactive Administered Medications - up to 3 most recent administrations Medication Order MAR Action Action Date Dose Rate Site doxycycline (VIBRA-TABS) tablet 100 mg 100 mg, Oral, ONCE, 1 dose, On 06/13/11 at 1315, STAT Given 06/13/2011 1:20 PM EST 100 mg documented in this encounter Active and Recently Administered Medications Times are shown in EST. Scheduled Medication Order 06/11/2011 06/12/2011 06/13/2011 doxycycline (VIBRA-TABS) tablet 100 mg (COMPLETED) 100 mg, Oral, ONCE, 1 dose, On Mon06/13/11 at 1315, STAT 1320 (Given - Provid er: Yasmin Willard RN) documented in this encounter Care Teams Bit Gatherer Relationship Specialty Start Date End Date Fausto De León MD [facility] [place] [address] PCP - General 02/10/11 08/02/11 documented as of this encounter
--- OUTSIDE RECORDS SUMMARY | 2024-05-22 19:44 | XMS_ITS | Encounter Summary ---
Author Organization [facility] Address [facility] [place] [address] Care Team Providers Care Process Safety Management Engineer Name Role Phone Talya Siddiqi MD Primary Care Provider Unav ailable Reason for Visit * Reason Comments Medication Refill Clonazepam Other ingrown hairs Encounter Details Date Type Department Care Team ([facility] Contact Info) Description 11/26/2014 2:05 PM EDT Office Visit Family Medicine at [facility] [address] [place] [address] Talya Siddiqi MD Folliculitis (Primary Dx); Anxiety Discharge Disposition: Home Social History Tobacco Use Types Packs/Day Years Used Date Smoking Tobacco: Every Day Cigarettes 0.3 15 Started: 04/11/1994; Last attempted to quit: 04/11/2009 Smokeless Tobacco: Never Comments:wants to quit, has tried the patch Alcohol Use Standard Drinks/Week Comments Yes 0.8 (1 standard drink = 0.6 oz p ure alcohol) Sex and Gender Information Value Date Recorded Sex Assigned at Not on file Gender Identity Not on file Sexual Orientation Not on file documented as of this encounter Last Filed Vital Signs Vital Sign Reading Time Taken Comments Blood Pressure 123/70 11/26/2014 2:02 PM EDT Pulse 109 11/26/2014 2:02 PM EDT Temperature 36.9 ??C (98.5 ??F) 11/26/2014 2:02 PM ED T Respiratory Rate 16 11/26/2014 2:02 PM EDT Oxygen Saturation 99% 11/26/2014 2:02 PM EDT Inhaled Oxygen Concentration - - Weight 95.5 kg (210 lb 9.6 oz) 11/26/2014 2:02 P M EDT Height 164 cm (5' 4.57) 11/26/2014 2:02 PM EDT Body Mass Index 35.52 11/26/2014 2:02 PM EDT documented in this encounter Patient Instructions * Patient Instructions* Talya Siddiqi MD - 11/26/2014 2:48 PM EDT Images from the original note were not included. 1. Folliculitis This is recurrent. Will use antibacterial soap as below. Allow 6 weeks for resolution. If the two lesions of concern persist or become red or painful again she can call for further instruction. - Soap Bar; Use twice weekly to affected areas. Dispense: 1 Bar; Refill: 2 [facility] Folliculitis: After Your Visit Your Care Instructions Folliculitis (say umb-HEB-err-LY-tus) is an infection of the pouches (follicles) in the skin where hair grows. It can occur on any part of the body, but it is most common on the scalp, face, and places where clothes rub against the skin. Bacteria, such as those found in a hot tub, can cause folliculitis. Folliculitis begins as a red, tender area near a strand of hair. The skin can itch or burn and may drain pus or blood. Sometimes folliculitis can lead to more serious skin infections. Your doctor usually can treat mild folliculitis with an antibiotic cream or ointment. If you have folliculitis on your scalp, you may use a shampoo that kills bacteria. Antibiotics you take as pills can treat infections deeper in the skin. For stubborn cases of folliculitis, laser treatment may be an option. Laser treatment uses strong beams of light to destroy the hair follicle. But hair will no longer grow in the treated area. Follow-up care is a almeida part of your treatment and safety. Be sure to make and go to all appointments, and call your doctor if you are having problems. It???s also a good idea to know your test results and keep a list of the medicines you take. How can you care for yourself at home? ?? Take your medicine exactly as prescribed. If your doctor prescribed antibiotics, take them as directed. Do not stop taking them just because you feel better. You need to take the full course of antibiotics. ?? Use a soap that kills bacteria to wash the infected area. If your scalp or garcia is infected, use a shampoo with selenium or propylene glycol. Be careful. Do not scrub too long or too hard. ?? Mix 1 1/3 cup warm water and 1 tablespoon vinegar. Soak a cloth in the mixture, and place it over the infected skin until it cools off (usually 5 to 10 minutes). You can do this 3 to 6 times a day. ?? Soak a cloth in Burow's solution, and place it over the infected skin. This can relieve itching and stinging and stop the growth of bacteria and fungus. You can get Burow's solution at many drugstores. ?? Do not share your razor, towel, or washcloth. That can spread folliculitis. ?? Use a new blade in your razor each time you shave to keep from re-infecting your skin. ?? If you tend to get folliculitis, avoid using hot tubs. They can contain bacteria that cause folliculitis. When should you call for help? Call your doctor now or seek immediate medical care if: ?? You have a fever not caused by the flu or some other known illness. ?? You have signs of infection such as: ?? Pain, warmth, or swelling in the skin. ?? Red streaks near a hair follicle. ?? Pus coming from a hair follicle. ?? A fever. Watch closely for changes in your health, and be sure to contact your doctor if: ?? Your home treatment does not help. Where can you learn more? Visit our health information library at [email or web address] You can also view health information on [employer], your personal patient account. Log in or sign up today. Enter M257 in the search box to learn more about Folliculitis: After Your Visit. ?? [id number] [employer]. Care instructions adapted under license by [facility]. This care instruction is for use with your licensed healthcare professional. If you have questions about a medical condition or this instruction, always ask your healthcare professional. [employer] disclaims any warranty or liability for your use of this information. Content Version: 10.4.384225; Current as of: September 11, 2013 documented in this encounter Progress Notes * Talya Siddiqi MD - 11/26/2014 1:28 PM EDT HPI: Aria Figueroa is a 33 y.o. female is here for the following concerns. 1. Anxiety/Depression Three weeks ago, her fiancee broke up with her. She is now having a difficult time dealing with theloss of that relationship in addition to missing his two children she cared for. Additionally, her father had a stroke in May and her housing situation is unstable. She is going back and forth between a hotel and her parent's house, but will move in to a new apartment December 16. With these stressors, she has had a difficult time falling asleep at night due to racing thoughts. However, she still reports 6-7 hours of sleep per night since she is able to sleep late. She is also having episodes of panic 1-2x/week when feels the need to contact her ex-fiancee or visit the apartment. She is cur rently taking 225mg venlafaxine QD and had previously taken clonazepam PRN with good effect. She isinterested in a clonazepam refill to take occasionally during her anxious moments. She is also interested in counseling, but her insurance will not cover this. She denies thoughts of suicide, homicide, or hurting herself in any way. 2. Folliculitis She has had recurrent ingrown hairs along her bikini line in her groin area. She has two areas in particular that have been red and painful on/off for the past 2-4 months. One on her right is currently purple, not raised or firm, but has been raised with drainage. The other on her left has a 0.5cm opening, is red, draining without applied pressure, sometimes firm and the size of a quarter. She has tried to keep this area clean and apply neosporin when open. She has also tried hot compresses in the past. They appear to worsen around the time of her periods. She last shaved that area 1.5 monthsago. Denies vaginal symptoms, fever, chills, or spreading erythema. ROS: Constitutional: no fevers or chills Musculoskeletal: No joint pains or swelling. Derm: See HPI, change in detergents, hair products, lotions- none PHQ9 Questionnaires Data (Clinic and Pt Entered): last 4 values of depression scores PHQ-9 QUESTIONNAIRE SCORE ONLY (AMB) 06/28/2013 10/07/2013 05/09/2014 11/26/2014 PHQ - 9 Score (Clinic) 1 (Minimal Depression) 0 (No Depression) 5 (Mild Depression) 17 (Moderately Severe Depression) Physical Exam: Filed Vitals: 11/26/14 1402 BP: 123/70 Pulse: 109 Temp: 36.9 ??C (98.5 ??F) Resp: 16 Gen: Alert, no acute distress, tearful at times Affect: Appropriate, sad Insight: good Skin: six lesions in groin area located within/around pubic hair; 1-1.5cm ranging from red-purple; lesion on right is purple, nodular, and 1cm; lesion on left in leg crease is open with erythema and 1.5cm, no drainage or spreading erythema, no LAD Assessment / Plan: 1. Folliculitis Has multiple areas of folliculitis, some with significant scarring/nodularity and one open lesion. It does not appear to be hidradenitis suppurativa. Recommended using phisohex soap 2x/week for 6 weeks. If not resolved or infections continue to recur, this may indicate cysts that need to be excised. We also recommended discontinuing shaving that area and continue to apply topical antibiotic ointment to open areas. She should return to care if infections continue to recur after 6 weeks. - Phisohex Soap Bar; Use twice weekly to affected areas. Dispense: 1 Bar; Refill: 2 2. Depression/Anxiety Ms. Figueroa has a significant amount of recent stress with a PHQ9 score of 17. We discussed the possibility of adding seroquel at night to help with sleep but to also increase the effect of the venlafaxine she takes daily. At this time, she is not interested in adding another daily medication. Shewould prefer to continue taking clonazepam when needed. We will also have a behavior counselor contact her since she is unable to do counseling at this time. No SI or HI. - refill clonazepam 0.5 mg PRN - continue venlafaxine 225 mg QD - behavioral counselor 25 minutes of this 30 minute visit was spent in counseling/coordination of care, review of treatment, plan of care and follow up of the above diagnosis. documented in this encounter Plan of Treatment Not on file documented as of this encounter Visit Diagnoses Diagnosis Folliculitis- Primary Other specified disease of hair and hair follicles Anxiety Anxiety state, unspecified documented in this encounter Care Teams Process Safety Management Engineer Relationship Specialty Start Date End Date Talya Siddiqi MD PCP - General 10/07/13 05/26/15 documented as of this encounter
--- OUTSIDE RECORDS SUMMARY | 2024-05-22 19:44 | XMS_ITS | Encounter Summary ---
Author Organization [facility] Address [facility] [place] [address] Care Team Providers Care Electronic Design Engineer Name Role Phone Shawn Diego MD, Maryellen Primary Care Provider Encounter Details Date Type Department Care Team (Late st Contact Info) Description 08/15/2012 Telephone Family Medicine at [facility] [address] [place] [address] [place] [address] Social History Tobacco Use Types Packs/Day Years Used Date Smoking Tobacco: Every Day Cigarettes 0.5 15 Started: 04/11/1994; Last attempted to quit: 04/11/2009 Smokeless Tobacco: Never Alcohol Use Standard Drinks/Week Comments Yes 0.8 (1 standard drink = 0.6 oz p ure alcohol) Sex and Gender Information Value Date Recorded Sex Assigned at Not on file Gender Identity Not on file Sexual Orientation Not on file documented as of this encounter Miscellaneous Notes * Telephone Encounter - Hansa Campbell Radha - 08/16/2012 10:12 AM EST Patient stated that she is having a lot more anxiety and stress. She stated that she thinks it is seasonal although much of the stress is work related. She stated that she was safe and that she wouldlike to schedule an appointment to be seen to discuss medications. Will review with Dr.Blumberg cabrera will contact our office this afternoon to schedule an appointment. * Telephone Encounter - Maryellen Escobar MD - 08/15/2012 8:46 PM EST Chart reviewed. Takes effexor for anxiety which was last evaluated about a year and a half ago. TSH was also tested around that time and was elevated. No TSH testing since and it appears from prescription records that she ran out of levothyroxine months ago. As other medical issues (like thyroid issues) can mimic mood issues like anxiety and depression, myrecommendation is that she make an appointment to evaluate her mood issues thoroughly. If she is having some crisis, we can refer to Senia Rodas and get an expedited visit. Otherwise, we can try to get her in to see me within next month. I will place an order for TSH which she can have in advance of the appointment, or she can wait andwe can see if additional lab testing is warranted. * Telephone Encounter - Dania Jaquez - 08/15/2012 12:18 PM EST Patient is asking to increase her effexor. She is currently taking 150mg [facility]. [facility] ThanksDania documented in this encounter Plan of Treatment Not on file documented as of this encounter Visit Diagnoses Diagnosis Hypothyroidism- Primary Unspecified hypothyroidism documented in this encounter Care Teams Electronic Design Engineer Relationship Specialty Start Date End Date Maryellen Escobar MD [facility] [address] [facility] [place] [place] [address] PCP - General 05/16/12 10/06/13 documented as of this encounter
--- OUTSIDE RECORDS SUMMARY | 2024-05-22 19:44 | XMS_ITS | Encounter Summary ---
Author Organization [facility] [place] [address] Care Team Providers Care Assembler Mechanical Ordnance Name Role Phone Chris Hackett DO Primary Care Provider [phone] Encounter Details Date Type Department Care Team (Late st Contact Info) Description 08/23/2011 Refill Family Medicine at [facility] [place] [address] Chris Hackett [facility] [place] [address] Social History Tobacco Use Types Packs/Day Years [...] encounter Miscellaneous Notes * Telephone Encounter - Dru Rubi - 08/23/2011 11:14 AM EST Patient is out of script, would like today if possible. Patient has appt on Monday this week w/Dr. Hackett for f/up meds. Thanks Dru Escobar documented in this encounter Plan of Treatment Not on file documented as of this encounter Visit Diagnoses Not on filedocumented in this encounter Care Teams Assembler Mechanical Ordnance Relationship Specialty Start Date End Date Chris Hcakett DO [facility] [address] [place] [id number] PCP - General 08/03/11 05/15/12 documented as of this encounter
--- OUTSIDE RECORDS SUMMARY | 2024-05-22 19:44 | XMS_ITS | Encounter Summary ---
Author Organization [facility] [place] [address] Care Team Providers Care Associate Field Service Engineer Name Role Phone Chris Hackett DO Primary Care Provider [phone] Reason for Referral * Physical Therapy (Routine) - Closed Specialty Diagnoses / Procedures Referred By Tonia argueta Referred To Contact Physical Therapy Diagnoses Shoulder pain Piedad Delgado ENVIRONMENTAL COMMUNICATIONS SPECIALIST [facility] [place] [address] Referral ID Status Reason Start Date Expiration Date V isits Requested Visits Authorized [id number] Closed Evaluate and Treat 03/29/2012 09/25/2012 1 1 Reason for Visit * Reason Comments Contraception Shoulder Pain right shoulder Encounter Details Date Type Department Care Team ([facility] st Contact Info) Description 03/29/2012 11:00 AM EDT Follow-Up Family Medicine at [facility] [place] [address] Piedad Delgado [facility] [place] [address] Shoulder pain (Primary Dx); Dysuria; Contraception Discharge Disposition: Home Social History Tobacco Use [...] Sign Reading Time Taken Comments Blood Pressure 116/82 03/29/2012 10:58 AM EDT Pulse 83 03/29/2012 10:58 AM EDT Temperature 37.2 ??C (99 ??F) 03/29/2012 10:58 AM EDT Respiratory Rate 16 03/29/2012 10:58 AM EDT Oxygen Saturation 99% 03/29/2012 10:58 AM EDT Inhaled Oxygen Concentration - - Weight 96.6 kg (213 lb) 03/29/2012 10:58 AM EDT per Pt. Height 165.1 cm (5' 5) 03/29/2012 10:58 AM EDT per Pt. Body Mass Index 35.45 03/29/2012 10:58 AM EDT documented in this encounter Progress Notes * Piedad Delgado, ENVIRONMENTAL COMMUNICATIONS SPECIALIST - 03/29/2012 11:17 AM EDT Aria Gracia is a 31 y.o. female with the following concerns: 1.) Some burning with urination 2 nights ago, does seem to be improving. Feels burning may heave been related to having intercourse. 2.) Contraception; would like to discuss paragard IUD: has had severe mood changes in the past withhormones both combined and progesterone only. She has tried multiple forms of barrier protection which have caused pain with intercourse or tissue irritation. 3.) Chronic shoulder pain: around scapulae - right shoulder - pt is right handed. No known injury. 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 Symptoms are worse with stress. Has tried massage and selfmassage which helps slightly but does not last. Ibuprofen does help. ROS: Per HPI LMP 02/28/12 No abdominal pain No fever No flank pain Physical Exam: BP 116/82 Pulse 83 Temp(Src) 37.2 ??C (99 ??F) (Oral) Resp 16 Ht 165.1 cm (5' 5) Wt 96.616 kg (213 lb) BMI 35.44 kg/m2 SpO2 99% LMP 02/28/2012 Gen: alert, oriented, no acute distress Lymphatic: no cervical or supraclavicular lymphadenopathy. Heart: RRR, no S3 or murmur. Lungs: CTA bilaterally, no W/R/R, symm excursions, good AE Abdominal: S/NT/ND. Good bs. No mass. No HSM. Extremities: no C/C/E x 4, right shoulder, FROM, strength intact, handgrip equal b/l, tricep tendonequal b/l - + ttp over upper trapezius, levator scap attachment at scap and rhomboids. Psychiatric: mood reactive, affect appropriate. Judgement and insight intact. Urine dip: trace leuks, trace blood Assessment/ Plan: 1.) Some burning with urination 2 nights ago, does seem to be improving. Sed urine for culture 2.) Contraception: reviewed options - will schedule pt for Paragard IUD insertion. 3.) Chronic shoulder pain: refer to PT. Some home exercises given to pt in the interim. Discussed expected course of diagnosis, pt to f/u if not improving with treatment or sooner if any worse. documented in this encounter Plan of Treatment Scheduled Referrals Name Type Priority Associated Diagnoses Orde r Schedule REFERRAL TO PHYSICAL THERAPY Outpatient Referral Routine Shoulder pain Ordered: 03/29/2012 documented as of this encounter Procedures Procedure Name Priority Date/Time Associated Diagnosis Comments URINE CULTURE Routine 03/29/2012 3:55 PM EDT Dysuria POCT URINE DIPSTICK Routine 03/29/2012 1 1:10 AM EDT Dysuria documented in this encounter Results * Urine culture Clean Catch Urine (03/29/2012 3:55 PM EDT) Urine Culture ? Patient Name: ARIA GRACIA ?Ordered By: CY CHRIS Joi ? MR#: [id number] ?LOC: ??[facility] ? /Sex: ??1980 (31 years), ? Female ? PROCEDURE: Urine Culture ?SOURCE: U CC ? COLLECTED: 03/29/2012 15:55 ? STARTED: 03/29/2012 15:56 ? FINAL REPORT ? Final Report ? Verified:03/31/20 12 13:07 ? 10,000-49,000 cfu/ml Escherichia coli ? 1,000-9,000 cfu/ml mixed mucosal yasmeen ? PRELIMINARY REPORT ? Preliminary Report ? Verified:03/30/20 12 12:23 ? 10,000-49,000 cfu/ml Gram Negative Rods ? 1,000-9,000 cfu/ml mixed mucosal yasmeen ? Patient: ARIA GRACIA ? MR#: [id number] ? SUSCEPTIBILITY RESULTS ? Escherichia coli ?JUAN Interp ? Ampicillin ? S ? Ampicillin/Sulbac colon ? S ? Aztreonam ?S ? Cefazolin ?S ? Cefoxitin ?S ? Ceftazidime ?S ? Ceftriaxone ?S ? Cefuroxime ? S ? Ciprofloxacin ?S ? Doripenem ?S ? Gentamicin ? S ? Meropenem ?S ? Nitrofurantoin ? S ? Piperacillin/Tazo bactam ?S ? Trimethoprim/Sulf a ? S ? Tetracycline ? S ? Tobramycin ? S ? JOSE MANUEL IGLESIAS Urine specimen obtained by clean catch procedure (specimen) 03/29/2012 3:55 PM EDT 03/29/2012 3:55 PM EDT Narrative Resulting Agency Comment Spec In Lab Chris Hackett DO MICROBIOLOGY - GENER AL ORDERABLES JOSE MANUEL IGLESIAS * (ABNORMAL) POCT urine dipstick (03/29/2012 11:10 AM EDT) POC Sp [place] 1015(A) 1.002 - 1.030 POC pH, UA 5 5.0 - 8.5 POC Leuk, UA trace Negative - Negative POC Nitrite, UA neg Negative - Negative POC Protein, UA neg Negative - Negative mg/dL POC Glucose, UA neg Normal - Normal mg/dL POC Ketone, UA neg Negative - Negative POC Urobil, UA neg 0.2 - 1.0 mg/dL POC Bili, UA neg Negative - Negative POC Blood, UA trace Negative - Negative maynor/uL 03/29/2012 11:1 0 AM EDT Chris Hackett DO POINT OF CARE TEST O RDERABLES documented in this encounter Visit Diagnoses Diagnosis Shoulder pain- Primary Pain in joint, shoulder region Dysuria Contraception Unspecified contraceptive management documented in this encounter Care Teams Associate Field Service Engineer Relationship Specialty Start Date End Date Chris Hackett DO [facility] [address] [place] [place] [address] PCP - General 08/03/11 05/15/12 documented as of this encounter
--- OUTSIDE RECORDS SUMMARY | 2024-05-22 19:44 | XMS_ITS | Encounter Summary ---
[place] [address] Care Team Providers Care Line Prep Cook Name Role Phone Chris Hackett DO Primary Care Provider [phone] Encounter Details Date Type Department Care Team (Latest Contact Info) Description 04/11/2012 10:43 AM EDT - 04/11/2012 11:59 PM EDT Hospital [place] [address] Chris Hackett DO [facility] [address] [place] [address] Discharge Disposition: Home Social History Tobacco Use [...] Date End Date levothyroxine (SYNTHROID) 50 mcg tablet Take 1 tablet by mouth daily. 30 tablet 1 01/03/2012 11/05/2012 azithromycin (ZITHROMAX) 500 mg tablet Take 2 tablets by mouth daily. 4 tablet 0 01/03/2012 04/16/2012 ondansetron (ZOFRAN ODT) 4 mg oral disintegrating tablet Take 1-2 tablets by mouth every 8 hours as needed for Nausea. 12 tablet 1 12/05/2011 04/16/2012 venlafaxine (EFFEXOR-XR) 150 mg 24 hr capsule Take 1 capsule by mouth daily. 90 capsule 4 10/03/2011 11/05/2012 ALPRAZolam (XANAX) 0.25 mg tablet Take 1 tablet by mouth daily as needed. 10 tablet 0 08/03/2011 07/27/2012 Eflornithine 13.9 % Crea Apply topically 2 times daily. At least 8 hours apart, do not rinse for 4 hours, discontinue if irritation occurs 30 g 2 04/11/2011 11/05/2012 vitamin E 400 unit capsule Take 400 Units by mouth daily. 11/05/2012 documented as of this encounter Plan of Treatment Not on file documented as of this encounter Visit Diagnoses Not on filedocumented in this encounter Care Teams Line Prep Cook Relationship Specialty Start Date End Date Chris Hackett DO [facility] [address] [place] [address] PCP - General 08/03/11 05/15/12 documented as of this encounter
--- OUTSIDE RECORDS SUMMARY | 2024-05-22 19:44 | XMS_ITS | Encounter Summary ---
Author Organization [facility] [place] [address] Care Team Providers Care Heavy Rail Train Operator Name Role Phone Talya Siddiqi MD Primary Care Provider Unav ailable Reason for Visit * Reason Onset Date Comments Medication Refill 05/11/2015 Encounter Details Date Type Department Care Team (Late st Contact Info) Description 05/11/2015 Refill Family Medicine at [facility] [address] [place] [address] Go Salas, NASIR Anxiety Social History Tobacco Use Types Packs/Day [...] as of this encounter Visit Diagnoses Diagnosis Anxiety Anxiety state, unspecified documented in this encounter Care Teams Heavy Rail Train Operator Relationship Specialty Start Date End Date Talya Siddiqi MD PCP - General 10/07/13 05/26/15 documented as of this encounter
--- OUTSIDE RECORDS SUMMARY | 2024-05-22 19:44 | XMS_ITS | Encounter Summary ---
Author Organization [facility] Address [facility] [place] [address] Care Team Providers Care Applicator Sprayer Name Role Phone Talya Siddiqi MD Primary Care Provider Unav ailable Reason for Visit * Reason Comments Medication Check adjustment on medica tion Encounter Details Date Type Department Care Team ([facility] Contact Info) Description 05/09/2014 9:45 AM EST Follow-Up Family Medicine at [address] [address] Eliane Elizabeth, MECHANICAL PRESS OPERATOR [facility] [place] [address] Anxiety (Primary Dx) Discharge Disposition: Home Social History Tobacco Use [...] Sign Reading Time Taken Comments Blood Pressure 119/74 05/09/2014 9:58 AM EST left arm/sitting Pulse 73 05/09/2014 9:58 AM EST Temperature 37.1 ??C (98.7 ??F) 05/09/2014 9 :58 AM EST Respiratory Rate 15 05/09/2014 9:58 AM EST Oxygen Saturation 100% 05/09/2014 9:5 8 AM EST room air Inhaled Oxygen Concentration - - Weight 100.2 kg (221 lb) 05/09/2014 9:5 8 AM EST Height 163.9 cm (5' 4.53) 05/09/2014 9 :58 AM EST Body Mass Index 37.32 05/09/2014 9:58 AM EST documented in this encounter Patient Instructions * Patient Instructions* Eliane Elizabeth APRN - 05/09/2014 10:22 AM EST I would like you to sign up for myD-H, which will give you secure online access to your electronic medical record at [facility] and the ability to communicate with your health care team whenand where it???s most convenient for you. With myD-H you will be able to: - look at parts of your medical record including test results and office notes - send and receive messages to/from me and your other providers - renew prescriptions - schedule appointments. To sign up, go to [email or web address] and click I have an activation code and follow the instructions. Here is your activation code: [email or web address] Expires: 06/23/2014 10:22 AM Remember, myD-H is NOT for urgent needs! Always dial 911 for medical emergencies. documented in this encounter Progress Notes * Eliane Elizabeth APRN - 05/09/2014 10:07 AM EST Chief Complaint Patient presents with ??? Medication Check adjustment on medication HPI: 33 y.o. female presents for follow up. January phone note reviewed. Was trying to wean med, noted return of s/s. Had tried several meds since dx as teen, effexor is the one that's worked well. Currently at 150mg daily, with good effect since dose increase. Notes mild increase in anxiety in last month r/t dad's upcoming heart surgery next week. Does use clonazepam infrequently, for panic attacks. Do es note drowsiness with it. Plans to go home to help out for a couple weeks. Would prefer to go up on the effexor dose for a couple months around this stressor, to manage anxiety. ROS: see HPI above Patient Active Problem List Diagnosis Code ??? Anxiety 300.00 ??? Hypothyroidism 244.9 ??? Body mass index (BMI) of 36.0-36.9 in adult V85.36 Current Outpatient Prescriptions Medication Sig Dispense Refill ??? venlafaxine (EFFEXOR-XR) 150 mg 24 hr capsule Take 1 capsule by mouth daily. 90 capsule 4 ??? acetaminophen-codeine (TYLENOL #3) 300-30 mg per tablet 1-2 nightly prn 10 tablet 0 ??? clonAZEpam (KLONOPIN) 0.5 mg tablet Take 1 tablet by mouth daily as needed for Anxiety. 20 tablet 0 ??? [DISCONTINUED] amoxicillin-clavulanate (AUGMENTIN) 875-125 mg per tablet Take 1 tablet by mouth2 times daily. 20 tablet 0 ??? levothyroxine (SYNTHROID) 50 mcg tablet Take 1 tablet by mouth daily. 90 tablet 3 Physical Exam: Filed Vitals: 05/09/14 0958 BP: 119/74 Pulse: 73 Temp: 37.1 ??C (98.7 ??F) TempSrc: Oral Resp: 15 Height: 163.9 cm (5' 4.53) Weight: 100.245 kg (221 lb) SpO2: 100% Physical Exam Psychiatric: affect and interaction appropriate, speech nl, makes good eye contact, able to discuss all of the above, insight perspective good Assessment/Plan: Anxiety: discussed option of prn clonazepam use through the surgery/recovery period, increase effexor dose. Patient will increase effexor xr 225mg daily for 2-3 months, and contact office when ready to decrease again. Will use clonazepam prn hs - understand goals risks SE - previous infrequent use noted. documented in this encounter Plan of Treatment Not on file documented as of this encounter Visit Diagnoses Diagnosis Anxiety- Primary Anxiety state, unspecified documented in this encounter Care Teams Applicator Sprayer Relationship Specialty Start Date End Date Talya Siddiqi MD PCP - General 10/07/13 05/26/15 documented as of this encounter
--- OUTSIDE RECORDS SUMMARY | 2024-05-22 19:44 | XMS_ITS | Encounter Summary ---
Author Organization [facility] [place] [address] Care Team Providers Care Director Community Organization Name Role Phone Chris Hackett DO Primary Care Provider Reason for Visit * Reason Onset Date Comments Labs Only 04/12/2012 Encounter Details Date Type Department Care Team ([facility] Contact Info) Description 04/12/2012 Telephone Family Medicine [facility] [place] [address] Chris Hackett DO [facility] [address] [place] [place] [address] Labs Only Social History Tobacco Use Types Packs/Day Years [...] encounter Miscellaneous Notes * Telephone Encounter - Cari Dennis MA - 04/12/2012 9:27 AM EDT Called patient, left message. Patient has test/orders that are . I have extended the orders for two weeks. Patient has another two weeks to get the testing done. If patient has questions they can contact the office. documented in this encounter Plan of Treatment Not on file documented as of this encounter Visit Diagnoses Not on filedocumented in this encounter Care Teams Director Community Organization Relationship Specialty Start Date End Date Chris Hackett DO [facility] [address] [place] [place] [address] PCP - General 08/03/11 05/15/12 documented as of this encounter
--- OUTSIDE RECORDS SUMMARY | 2024-05-22 19:44 | XMS_ITS | Encounter Summary ---
[place] [address] Care Team Providers Care Aquatics Group Fitness Instructor Name Role Phone Nadine Mcduffie MD Primary Care Provider [phone] Reason for Referral * Diagnostic Test (Routine) - Closed Specialty Diagnoses / Procedures Referred By [facility] Referred To Contact Radiology Diagnoses Chorea Procedures MRI Brain wo Contrast MRI Brain wwo Contrast (Generic) [place] [address] [place] [address] Referral ID Status Reason Start Date Expiration Date V isits Requested Visits Authorized [id number] Closed Specialty Service Requested 05/15/2017 05/15/2018 1 1 Reason for Visit * Diagnostic Test (Routine) - Closed Specialty Diagnoses / Procedures Referred By [facility] Referred To Contact Radiology Diagnoses Chorea Procedures MRI Brain wo Contrast MRI Brain wwo Contrast (Generic) [place] [address] [place] [address] Referral ID Status Reason Start Date Expiration Date V isits Requested Visits Authorized [id number] Closed Specialty Service Requested 05/15/2017 05/15/2018 1 1 Encounter Details Date Type Department Care Team (Latest Contact Info) Description 05/18/2017 1:17 PM EST Hospital [place] [address] Kiara Garcia APRN [address] [place] [address] Chorea Discharge Disposition: Home Social History Tobacco Use [...] 11/05/2012 06/14/2017 documented as of this encounter Progress Notes * Carli Hernandez RN - 05/15/2017 12:39 PM EST MRI PRE-SEDATION ASSESSMENT NOTE NAME: Aria Figueroa AGE: 36 y.o. : 1980 [address] [place] [address] Female [phone] (home) Telephone Information: Nadine Mcduffie MD No primary care provider on file. Allergies Allergen Reactions ??? Hydrocodone-Acetaminophen mood lability ??? Sulfa (Sulfonamide Antibiotics) edema ??? Penicillins Rash Date/Time of call: May 15, 2017/12:39 PM/ PREVIOUS MRI SCAN? no HEIGHT: 5 5 WEIGHT: 240lb SCHEDULED SCAN: MRI Brain wwo Contrast SUBJECTIVE: I am claustrophobic CAN YOU LAY FLAT? yes AIRWAY ISSUES? DO YOU HAVE ANY INVOLUNTARY MOVEMENTS? (explain) DO YOU HAVE ANY PAIN? no DO YOU TAKE PAIN MED ON A DAILY BASIS? ASSESSMENT: Appropriate for PO sedation PLAN: Ativan PO per protocol Guidelines for MRI Pre-Procedures Laboratory Studies: GFR Date of lab draw 1. Creatinine studies (GFR level needed) within 90 days of scan ??? 70 yo or older if they are getting contrast ??? 50 years and older if they are diabetic and getting contrast ( XXX ) You must have a wrecking car driver present when you check in. This patient has been informed that they require a wrecking car driver to drive them home after this procedure. In the absence of a wrecking car driver, IR will not be able to sedate for your scan. Pt verbalized understanding of these instructions during the pre-procedure education via phone. Yes [place] of wrecking car driver: father ([place]) Phone number: [phone] PRIOR SCAN DATE/S SEDATION TYPE SUCCESSFUL 05/18/17 MRI Brain wo contrast Ativan 1 mg PO x2 yes Revised 07/17/15 documented in this encounter Plan of Treatment Not on file documented as of this encounter Procedures Procedure Name Priority Date/Time Associated Diagnosis Comments MRI BRAIN WO CONTRAST Routine 05/18/2017 3:41 PM EST Chorea documented in this encounter Results * MRI Brain wo Contrast (05/18/2017 3:41 PM EST) Anatomical Region Laterality Modality Head Magnetic Resonan ce Impressions 05/18/2017 7:40 PM EST Focal area of left perirolandic volume loss and T2 signal alteration. The differential for this appearance includes prior infarct, prior injury or infection. Narrative 05/18/2017 7:40 PM EST EXAMINATION: MRI BRAIN WO CONTRAST CLINICAL HISTORY: New onset progressively worsening-like movement of the RT upper extremity TECHNIQUE: MR of the brain performed without the use of intravenous contrast. COMPARISON: CT 05/02/2010 FINDINGS: The ventricles are normal in size and contour. There is a area of abnormal T2 signal alteration and volume loss involving the left precentral, and postcentral gyrus and adjacent frontal lobe white matter. There is no mass effect or shift. There is a focal area of volume loss in the junction of the posterior middle third of the corpus callosum. The major intracranial flow voids appear normal. There is no marrow signal abnormality. No other areas of parenchymal volume loss. Procedure Note Doron Solano MD - 05/18/2017 EXAMINATION: MRI BRAIN WO CONTRAST CLINICAL HISTORY: New onset progressively worsening-like movement of theRT upper extremity TECHNIQUE: MR of the brain performed without the use of intravenouscontrast. COMPARISON: CT 05/02/2010 FINDINGS: The ventricles are normal in size and contour. There is a areaof abnormal T2 signal alteration and volume loss involving the leftprecentral, and postcentral gyrus and adjacent frontal lobe white matter. There is nomass effect or shift. There is a focal area of volume loss in the junction ofthe posterior middle third of the corpus callosum. The major intracranial flowvoids appear normal. There is no marrow signal abnormality. No other areas of parenchymal volume loss. IMPRESSION Focal area of left perirolandic volume loss and T2 signal alteration.The differential for this appearance includes prior infarct, prior injury or infection. 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 Administered Medications Inactive Administered Medications - up to 3 most recent administrations Medication Order MAR Action Action Date Dose Rate Site LORazepam (ATIVAN) tablet 1 mg 1 mg, Oral, EVERY 30 MIN PRN, 2 doses, Starting on Andressa 05/18/17 at 0823, Until Andressa 05/18/17 at 1421, Anxiety, Angio/IR (Day of Procedure), Routine Given 05/18/2017 2:21 PM EST 1 mg Given 05/18/2017 1:49 PM EST 1 mg documented in this encounter Care Teams Aquatics Group Fitness Instructor Relationship Specialty Start Date End Date Nadine Mcduffie MD [address] [place] [address] PCP - General Family Medicine 03/27/17 documented as of this encounter
--- OUTSIDE RECORDS SUMMARY | 2024-05-22 19:44 | XMS_ITS | Encounter Summary ---
[place] [address] Care Team Providers Care Battery Assembler Plastic Name Role Phone Talya Siddiqi MD Primary Care Provider Unav ailable Reason for Visit * Reason Onset Date Comments Pharmacy Call 11/26/2014 Encounter Details Date Type Department Care Team ([facility] Contact Info) Description 11/26/2014 Telephone Family Medicine at [facility] [address] [place] [id number] Michelle Reeves Pharmacy Call Social History Tobacco Use Types Packs/Day Years [...] encounter Miscellaneous Notes * Telephone Encounter - Michelle Reeves - 11/26/2014 2:51 PM EDT Latisha espinoza [facility] called asking for clarification on the new prescription for a soap bar Please call or re fax documented in this encounter Plan of Treatment Not on file documented as of this encounter Visit Diagnoses Not on filedocumented in this encounter Care Teams Battery Assembler Plastic Relationship Specialty Start Date End Date Talya Siddiqi MD PCP - General 10/07/13 05/26/15 documented as of this encounter
--- OUTSIDE RECORDS SUMMARY | 2024-05-22 19:44 | XMS_ITS | Encounter Summary ---
Author Organization [facility] [place] [address] Care Team Providers Care Consulting Services Manager Name Role Phone Talya Siddiqi MD Primary Care Provider Unav ailable Reason for Visit * Reason Onset Date Comments Depression 12/04/2014 IMPACT Encounter Details Date Type Department Care Team (Late st Contact Info) Description 12/04/[address] [facility] [address] [place] [id number] Senia Rodas, [facility] [place] [address] Depression (IMPACT) Social History Tobacco Use Types Packs/Day Years [...] encounter Miscellaneous Notes * Telephone Encounter - Senia Rodas MSW - 12/04/2014 3:47 PM EDT Behavioral Health Clinician Note [facility] attempted to reach Aria by phone, at request of PCP, to intro self/role and educate and enrollin IMPACT. Pt did not answer and there was no opportunity to leave a message. [facility] will try again. Next week. documented in this encounter Plan of Treatment Not on file documented as of this encounter Visit Diagnoses Not on filedocumented in this encounter Care Teams Consulting Services Manager Relationship Specialty Start Date End Date Talya Siddiqi MD PCP - General 10/07/13 05/26/15 documented as of this encounter
--- OUTSIDE RECORDS SUMMARY | 2024-05-22 19:44 | XMS_ITS | Encounter Summary ---
Author Organization [facility] Address [facility] [place] [address] Care Team Providers Care Vocational Horticulture Instructor Name Role Phone Talya Siddiqi MD Primary Care Provider Unav ailable Reason for Visit * Reason Onset Date Comments Labs Only 11/05/2013 Encounter Details Date Type Department Care Team (Late Contact Info) Description 11/05/2013 Tele[address] Medicine at [facility] [address] [place] [address] Talya Siddiqi MD Labs Only Social History Tobacco Use Types [...] Notes * Telephone Encounter - Cari Dennis CMA - 11/21/2013 2:21 PM EDT Letter sent to pt and labs extended for three weeks. * Telephone Encounter - Cari Dennis CMA - 11/05/2013 3:13 PM EDT Called patient, left message. Patient has test/orders that are . I have extended the orders for two weeks. Patient has another two weeks to get the testing done. If patient has questions they can contact the office. Labs for TSH if pt could come in and get this done soon that would be great. documented in this encounter Plan of Treatment Not on file documented as of this encounter Visit Diagnoses Not on filedocumented in this encounter Care Teams Vocational Horticulture Instructor Relationship Specialty Start Date End Date Talya Siddiqi MD PCP - General 10/07/13 05/26/15 documented as of this encounter
--- OUTSIDE RECORDS SUMMARY | 2024-05-22 19:44 | XMS_ITS | Encounter Summary ---
Author Organization [facility] [place] [address] Care Team Providers Care Assistant Cross Country Coach Name Role Phone Shawn Diego MD, Maryellen Primary Care Provider Reason for Visit * Reason Onset Date Comments Medication Refill 07/27/2012 Encounter Details Date Type Department Care Team (Late Contact Info) Description 07/27/2012 Refill Internal Medicine at [facility] [address] [place] [address] Hansa Delgadillo, BALANCE STAFF STAKER Social History Tobacco Use Types Packs/Day Years [...] encounter Miscellaneous Notes * Telephone Encounter - Maryellen Escobar MD - 07/28/2012 10:38 PM EST I think we already took care of this. documented in this encounter Plan of Treatment Not on file documented as of this encounter Visit Diagnoses Not on filedocumented in this encounter Care Teams Assistant Cross Country Coach Relationship Specialty Start Date End Date Maryellen Escobar MD [facility] [address] [facility] [place] [address] PCP - General 05/16/12 10/06/13 documented as of this encounter
--- OUTSIDE RECORDS SUMMARY | 2024-05-22 19:44 | XMS_ITS | Encounter Summary ---
Author Organization [facility] [place] [address] Care Team Providers Care Twister Doffer Name Role Phone Shawn Diego MD, Jill Primary Care Provider Reason for Visit * Reason Onset Date Comments Labs Only 04/27/2012 Encounter Details Date Type Department Care Team ([facility] Contact Info) Description 04/27/2012 Telephone Family Medicine [facility] [place] [address] Chris Hackett DO [facility] [place] [address] Labs Only Social History Tobacco Use Types [...] on filedocumented in this encounter Care Teams Twister Doffer Relationship Specialty Start Date End Date Maryellen Escobar MD [facility] [place] [address] PCP - General 05/16/12 10/06/13 documented as of this encounter
--- OUTSIDE RECORDS SUMMARY | 2024-05-22 19:44 | XMS_ITS | Encounter Summary ---
Author Organization [facility] [place] [address] Care Team Providers Care Mobile Home Lot Utility Worker Name Role Phone Talya Siddiqi MD Primary Care Provider Unav ailable Reason for Visit * Reason Onset Date Comments Medication Refill 11/25/2014 Encounter Details Date Type Department Care Team ([facility] Contact Info) Description 11/25/2014 Refill Family Medicine at [facility] [address] [place] [address] Pamela Pena Anxiety Social History Tobacco Use Types Packs/Day [...] encounter Miscellaneous Notes * Telephone Encounter - Loida Collado MA - 11/27/2014 2:54 PM EDT Prescription for Klonopin .5mg written on 11/26/14 has been faxed to Jorden Tapia. * Telephone Encounter - Pamela Pena - 11/25/2014 9:44 AM EDT Patient is having trouble sleeping due to life changes and is requesting a refill. documented in this encounter Plan of Treatment Not on file documented as of this encounter Visit Diagnoses Diagnosis Anxiety Anxiety state, unspecified documented in this encounter Care Teams Mobile Home Lot Utility Worker Relationship Specialty Start Date End Date Talya Siddiqi MD PCP - General 10/07/13 05/26/15 documented as of this encounter
--- OUTSIDE RECORDS SUMMARY | 2024-05-22 19:44 | XMS_ITS | Encounter Summary ---
Author Organization [facility] [place] [address] Care Team Providers Care Middle Card Tender Name Role Phone Chris Hackett DO Primary Care Provider [phone] Reason for Visit * Reason Comments Dental Pain Encounter Details Date Type Department Care Team ([facility] Contact Info) Description 12/04/2011 9:47 PM EDT - 12/05/2011 12:22 AM EDT [place] [address] Samantha Alfaro MD [facility] [place] [address] Unspecified dental caries Discharge Disposition: Home Social History Tobacco Use [...] Sign Reading Time Taken Comments Blood Pressure 120/72 12/04/2011 9:50 PM EDT Pulse 88 12/04/2011 9:50 PM EDT Temperature 37 ??C (98.6 ??F) 12/04/2011 9:50 PM EDT Respiratory Rate 16 12/04/2011 9:50 PM EDT Oxygen Saturation 98% 12/04/2011 9:50 PM EDT Inhaled Oxygen Concentration - - Weight 96.2 kg (212 lb) 12/04/2011 9:50 PM EDT Height - - Body Mass Index 35.28 10/26/2011 9:17 AM EDT documented in this encounter Discharge Instructions * Discharge Instructions* Samantha Alfaro MD - 12/05/2011 12:[address] Fausto Sellers is the dentist interventional radiologist [facility]. You can call his office in the morning for follow up, or one of the dentists on the list Consider starting probiotics for the diarrhea/antibiotics. You could wait on the antibiotics - if a dentist can see you tomorrow/Monday. Continue the ibuprofen for the discomfort. Return for worsening. * Attachments The following attachments cannot be sent through Care Everywhere. * DENTAL PAIN: AFTER YOUR VISIT (AUSTRIAN) documented in this encounter Medications at Time of Discharge Medication Sig Dispensed Refills Start Date End Date ciprofloxacin (CIPRO) 250 mg tablet Take 1 tablet by mouth 2 times daily for 5 days. 10 tablet 0 12/05/2011 12/10/2011 metroNIDAZOLE (FLAGYL) 500 mg tablet Take 1 tablet by mouth 2 times daily for 5 days. 10 tablet 0 12/05/2011 12/10/2011 ondansetron (ZOFRAN ODT) 4 mg oral disintegrating tablet Take 1-2 tablets by mouth every 8 hours as needed for Nausea. 12 tablet 1 12/05/2011 04/16/2012 venlafaxine (EFFEXOR-XR) 150 mg 24 hr capsule Take 1 capsule by mouth daily. 90 capsule 4 10/03/2011 11/05/2012 ALPRAZolam (XANAX) 0.25 mg tablet Take 1 tablet by mouth daily as needed. 10 tablet 0 08/03/2011 07/27/2012 levothyroxine (SYNTHROID) 50 mcg tablet Take 1 [...] as of this encounter ED Notes * Samantha Alfaro MD - 12/05/2011 12:07 AM EDT Images from the original note were not included. Chief Complaint Patient presents with ??? Dental Pain Patient is a 30 y.o. female presenting with tooth pain. The history is provided by the patient. Dental PainThe primary symptoms include mouth pain and fever. The symptoms began 5 to 7 days ago. The symptoms are worsening. The symptoms are new. The symptoms occur constantly. Additional symptoms include: gum swelling and jaw pain. Has had pain for a couple of weeks but was okay with ibuprofen. Then stopped taking ibu when she developed diarrhea over the weekend (with a fever). Diarrhea is nearly resolved and fever is gone, butnow her tooth hurts even more. Doesn't have a dentist, is worried she is infected or that it may berelated to the diarrhea. Allergies Allergen Reactions ??? Sulfa (Sulfonamide Antibiotics) edema ??? Hydrocodone-acetaminophen mood lability ??? Penicillins Rash Review of Systems Constitutional: Positive for fever. HENT: Positive for dental problem. Gastrointestinal: Positive for abdominal pain and diarrhea. Physical Exam Nursing note and vitals reviewed. Constitutional: She appears well-developed and well-nourished. No distress. HENT: Mouth/Throat: No dental abscesses. Floor of mouth is soft Abdominal: Soft. She exhibits no distension. No tenderness. Procedures MDM Number of Diagnoses or Management Options Unspecified dental caries: new, needed workup Risk of Complications, Morbidity, and/or Mortality Presenting problems: low Management options: low Patient Progress Patient progress: stable ED Course: Has a carious/broken tooth. I don't think it is related to her GI problem over the weekend. Will give her the name of the dentist interventional radiologist as well as our dental list. I wrote her for abx, but gave herthe choice of waiting until she sees the dentist as she has no obvious abscess at this time. Samantha Alfaro MD 12/05/11 0458 documented in this encounter Miscellaneous Notes * Discharge Summary - Provider, Scanning - 12/05/2011 8:51 AM EDT * Miscellaneous - Provider, Scanning - 12/05/2011 1:50 AM EDT * ED Triage - Yasmin Willard RN - 12/04/2011 9:52 PM EDT Pt. Presents with dental pain R lower x 3 days. Also had some nausea vomiting diarrhea that has been resolving. documented in this encounter Plan of Treatment Not on file documented as of this encounter Visit Diagnoses Diagnosis Unspecified dental caries documented in this encounter Administered Medications Inactive Administered Medications - up to 3 most recent administrations Medication Order MAR Action Action Date Dose Rate Site ondansetron (ZOFRAN-ODT) oral disintegrating tablet 8 mg 8 mg, Oral, ONCE, 1 dose, On Mon12/05/11 at 0015, Routine Given 12/05/2011 12:00 AM EDT 8 mg documented in this encounter Active and Recently Administered Medications Times are shown in EDT. Scheduled Medication Order 12/03/2011 12/04/2011 12/05/2011 ondansetron (ZOFRAN-ODT) oral disintegrating tablet 8 mg (COMPLETED) 8 mg, Oral, ONCE, 1 dose, On Mon12/05/11 at 0015, Routine 0000 (Given - Provid er: Andry Shelton RN) documented in this encounter Care Teams Middle Card Tender Relationship Specialty Start Date End Date Chris Hackett DO [facility] [place] [address] PCP - General 08/03/11 05/15/12 documented as of this encounter
--- OUTSIDE RECORDS SUMMARY | 2024-05-22 19:44 | XMS_ITS | Encounter Summary ---
Author Organization [facility] [place] [address] Care Team Providers Care Wrecking Mechanic Name Role Phone Chris Hackett DO Primary Care Provider [phone] Reason for Visit * Reason Onset Date Comments Medication Refill 10/03/2011 Encounter Details Date Type Department Care Team (Late st Contact Info) Description 10/03/2011 Refill Family Medicine at [facility] [place] [address] Chris Hackett DO [facility] [place] [address] Social History Tobacco Use Types Packs/Day Years [...] on filedocumented in this encounter Care Teams Wrecking Mechanic Relationship Specialty Start Date End Date Chris Hackett DO [facility] [place] [address] PCP - General 08/03/11 05/15/12 documented as of this encounter
--- OUTSIDE RECORDS SUMMARY | 2024-05-22 19:44 | XMS_ITS | Encounter Summary ---
Author Organization [facility] [place] [address] Care Team Providers Care Varnish Maker Helper Name Role Phone Shawn Diego MD, Isaac Primary Care Provider [phone] Reason for Visit * Reason Comments Medication Check Effexor Gap In Care Encounter Details Date Type Department Care Team ([facility] Contact Info) Description 06/28/2013 2:45 PM EST Follow-Up Internal Medicine at [place] [address] [place] [address] Meenu Leo APRN [facility] [address] Anxiety (Primary Dx); Health care maintenance; Hypothyroidism Discharge Disposition: Home Social History Tobacco Use [...] Sign Reading Time Taken Comments Blood Pressure 110/69 06/28/2013 2:43 PM EST left arm/sitting Pulse 90 06/28/2013 2:43 PM EST Temperature 36.7 ??C (98.1 ??F) 06/28/2013 2 :43 PM EST Respiratory Rate 16 06/28/2013 2:43 PM EST Oxygen Saturation 100% 06/28/2013 2:4 3 PM EST room air Inhaled Oxygen Concentration - - Weight 96.9 kg (213 lb 9.6 oz) 06/28/2013 2:43 PM EST Height 165.1 cm (5' 5) 06/28/2013 2:43 PM EST Body Mass Index 35.54 06/28/2013 2:43 PM EST documented in this encounter Patient Instructions * Patient Instructions* Greta Hopkins Joi - 06/28/2013 2:48 PM EST I would like you to sign up for myD-H, which will give you secure online access to your electronic medical record at [facility] and the ability to communicate with your [...] the instructions. Here is your activation code: [email or web address] Expires: 08/12/2013 2:48 PM Remember, myD-H is NOT for urgent needs! Always dial 911 for medical emergencies. documented in this encounter Progress Notes * Meenu Leo APRN - 06/28/2013 2:55 PM EST PCP: ISAAC WOOTEN MD Chief Complaint Patient presents with ??? Medication Check Effexor ??? Gap In Care SUBJECTIVE: Aria Figueroa is a 32 y.o. female who presents with follow up regarding her anxiety. She reports that she has been taking effexor at 225 mg daily. She reports that she is very sleepy when take the 225 mg instead of the 150 mg. She continued to take it because she thought it might help, but would like to decrease back down to 150 mg and see how she does. She reports that she had theincrease when she had just gone through a break up. She has recently moved to the area. She reportsthat she works 5j0-60 hours per week, and she does not have many friends in the area. She is ready to go to sleep at 5:30 at night and wakes around 4 am to start her day and go to work. She used to do yoga, but has not restarted it recently. GINO-7 0=not at all, 1=several days, 2=more than half the days, 3=nearly every day Over the last 2 weeks, how often have you been bothered by the following problems: 1. Feeling nervous, anxious or on edge: 1 2. Not being able to stop or control worryin 3. Worrying too much about different things: 0 4. Trouble relaxin 5. Being so restless that it is hard to sit still: 0 6. Becoming easily annoyed or irritable: 1 7. Feeling afraid as if something awful might happen: 0 Total score: 2 Score: 5-9=mild; 10-14=moderate; 15-21=severe ROS: GEN: Denies fevers, chills, lightheadedness or dizziness HEENT: Denies sinus tenderness, changes in vision or hearing CARDIO: Denies palpitations, or chest discomfort RESP: Denies shortness of breath, OLGUIN, cough Allergies Allergen Reactions ??? Hydrocodone-Acetaminophen mood lability ??? Sulfa (Sulfonamide Antibiotics) edema ??? Penicillins Rash Current Outpatient Prescriptions Medication Sig Dispense Refill ??? levothyroxine (SYNTHROID) 50 mcg tablet Take 1 tablet by mouth daily. 90 tablet 3 ??? venlafaxine (EFFEXOR-XR) 150 mg 24 hr capsule Take 1 capsule by mouth daily. 90 capsule 4 ??? clonAZEpam (KLONOPIN) 0.5 mg tablet Take 1 tablet by mouth 2 times daily as needed for Anxiety.20 tablet 0 ??? venlafaxine (EFFEXOR XR) 75 mg 24 hr capsule Take 1 capsule by mouth daily. 90 capsule 3 ??? [DISCONTINUED] OXYcodone (ROXICODONE) 5 mg immediate release tablet Take 1 tablet by mouth every 4 hours as needed for Pain. 10 tablet 0 ??? [DISCONTINUED] ALPRAZolam (XANAX) 0.25 mg tablet Take 1 tablet by mouth daily as needed. 10 tablet 0 Patient Active Problem List Diagnosis Code ??? Anxiety 300.00 ??? Hypothyroidism 244.9 OBJECTIVE: Filed Vitals: 06/28/13 1443 BP: 110/69 Pulse: 90 Temp: 36.7 ??C (98.1 ??F) TempSrc: Oral Resp: 16 Height: 165.1 cm (5' 5) Weight: 96.888 kg (213 lb 9.6 oz) SpO2: 100% PHYSICAL EXAM: GENERAL APPEARANCE: alert, oriented, in no acute distress, well dressed, good hygeine PSYCH- understandable thought process, affect appropriate, mood appropriate, judgement normal CARDIO: RRR, no murmurs. LUNGS: CTA, no rales, rhoncii, or wheezes. ASSESSMENT & PLAN: Aria was seen today for medication check and gap in care. Diagnoses and associated orders for this visit: Anxiety - venlafaxine (EFFEXOR XR) 37.5 mg 24 hr capsule; Take 1 capsule by mouth daily. Take 1 capsule daily in addition to the 150 mg tablet for total dose of 187.5 mg for one week and then stop the 37.5 mg tablet. - clonAZEpam (KLONOPIN) 0.5 mg tablet; Take 1 tablet by mouth daily as needed for Anxiety. To be used rarely - f/u about one month Health care maintenance - Flu vaccine greater than or equal to 3yo preservative free Hypothyroidism - levels have not been checked in long period of time, will recheck to make sure appropriate dosage - TSH; Future documented in this encounter Plan of Treatment Not on file documented as of this encounter Visit Diagnoses Diagnosis Anxiety- Primary Anxiety state, unspecified Health care maintenance Unspecified general medical examination Hypothyroidism Unspecified hypothyroidism documented in this encounter Care Teams Varnish Maker Helper Relationship Specialty Start Date End Date Isaac Wooten MD [facility] [address] [place] [address] PCP - General 05/16/12 10/06/13 documented as of this encounter
--- OUTSIDE RECORDS SUMMARY | 2024-05-22 19:44 | XMS_ITS | Encounter Summary ---
Author Organization [facility] Address [facility] [place] [address] Care Team Providers Care Installment Dealer Name Role Phone Talya Siddiqi MD Primary Care Provider Unav ailable Reason for Visit * Reason Comments Facial Pain possible tooth; feel is like stabbing in ear; right side of face and right ear Medication Management would like to take less effexor if possible Encounter Details Date Type Department Care Team (Late st Contact Info) Description 10/07/2013 2:45 PM EDT Office Visit Family Medicine at [facility] [address] [place] [address] Alberta Alexander MD [facility] [place] [address] Dental infection (Primary Dx); Anxiety Discharge Disposition: Home Social [...] Reading Time Taken Comments Blood Pressure 120/72 10/07/2013 2:53 PM EDT Pulse 88 10/07/2013 2:53 PM EDT Temperature 37 ??C (98.6 ??F) 10/07/2013 2:53 PM EDT Respiratory Rate 20 10/07/2013 2:53 PM EDT Oxygen Saturation 99% 10/07/2013 2:53 PM EDT Inhaled Oxygen Concentration - - Weight 98.9 kg (218 lb) 10/07/2013 2:53 PM EDT Height 165.1 cm (5' 5) 10/07/2013 2:53 PM EDT Body Mass Index 36.28 10/07/2013 2:53 PM EDT documented in this encounter Progress Notes * Alberta Alexander MD - 10/07/2013 3:13 PM EDT Images from the original note were not included. Subjective: Patient ID/Chief complaint: Aria Figueroa is a 32 y.o. female who comes in today for Right ear pain. HPI: She has had 2 1/2 weeks of pain around and behind her ear pain. Went to the ER at [place] a couple weeks ago. They thought it was a dental infection She is taking 600mg of ibuprofen. 500mg. She's taking that combination about every 4-6 hours. She had some antibiotics and it go somewhat betterShe went to the dentist and he felt it was related to a broken tooth, with irritation of the nerve, but it got worse over the last several days and she noted that she had water in her ear. Review of Systems Constitutional: Positive for fatigue. Negative for fever, chills and diaphoresis. HENT: Positive for ear pain, sore throat and rhinorrhea (little bit). Negative for hearing loss, neck pain and ear discharge. Gastrointestinal: Negative for nausea. Psychiatric/Behavioral: Positive for behavioral problems. PHQ9- Today's value PHQ9 Questionnaire 10/07/2013 PHQ - 9 Score (Clinic) 0 (No Depression) Little interest or pleasure (Clinic) Not at all Down, depressed, hopeless (Clinic) Not at all Patient Active Problem List Diagnosis Code ??? Anxiety 300.00 ??? Hypothyroidism 244.9 Current Outpatient Prescriptions Medication Sig Dispense Refill ??? clonAZEpam (KLONOPIN) 0.5 mg tablet Take 1 tablet by mouth daily as needed for Anxiety. 20 tablet 0 ??? levothyroxine (SYNTHROID) 50 mcg tablet Take 1 tablet by mouth daily. 90 tablet 3 ??? venlafaxine (EFFEXOR-XR) 150 mg 24 hr capsule Take 1 capsule by mouth daily. 90 capsule 4 ??? venlafaxine (EFFEXOR XR) 37.5 mg 24 hr capsule Take 1 capsule by mouth daily. Take 1 capsule daily in addition to the 150 mg tablet for total dose of 187.5 mg for one week and then stop the 37.5 mg tablet. 7 capsule 0 No past surgical history on file. Allergies Allergen Reactions ??? Hydrocodone-Acetaminophen mood lability ??? Sulfa (Sulfonamide Antibiotics) edema ??? Penicillins Rash History Substance Use Topics ??? Smoking status: Current Every Day Smoker -- 1.0 packs/day for 15 years Types: Cigarettes Last Attempt to Quit: 04/11/2009 ??? Smokeless tobacco: Never Used Comment: wants to quit, has tried the patch ??? 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 Physical Exam Constitutional: She appears well-developed and well-nourished. HENT: Head: Normocephalic. Right Ear: Tympanic membrane and ear canal normal. There is tenderness. No mastoid tenderness. Tympanic membrane is not erythematous. No middle ear effusion. Left Ear: Tympanic membrane and ear canal normal. Tympanic membrane is not erythematous and not bulging. Mouth/Throat: Abnormal dentition. Dental abscesses (possible formin) and dental caries present. Eyes: EOM are normal. Cardiovascular: Normal rate. Pulmonary/Chest: Effort normal. Skin: Skin is warm and dry. Psychiatric: She has a normal mood and affect. Her speech is normal and behavior is normal. Assessment and Plan: 1. Dental infection Resume abx to cover anaerobes x 10 days. Of note, Aria states that pcn allergy was rash and she has had and tolerated Augmentin since that time. F/U with dentist as planned. - amoxicillin-clavulanate (AUGMENTIN) 875-125 mg per tablet; Take 1 tablet by mouth 2 times daily. Dispense: 20 tablet; Refill: 0 - acetaminophen-codeine (TYLENOL #3) 300-30 mg per tablet; 1-2 nightly prn Dispense: 10 tablet; Refill: 0 2. Anxiety Decrease to 75mg. Situational stress from 5 years ago has resolved. Discussed risks/benefits of quitting. - venlafaxine (EFFEXOR-XR) 37.5 mg 24 hr capsule; Take with 75mg tablets x 1-2 weeks then decrease to 75mg tabs only. Dispense: 14 capsule; Refill: 0 Recheck 1 months with PCP, sooner if worse. documented in this encounter Plan of Treatment Not on file documented as of this encounter Visit Diagnoses Diagnosis Dental infection- Primary Acute apical periodontitis of pulpal origin Anxiety Anxiety state, unspecified documented in this encounter Care Teams Installment Dealer Relationship Specialty Start Date End Date Talya Siddiqi MD PCP - General 10/07/13 05/26/15 documented as of this encounter
--- OUTSIDE RECORDS SUMMARY | 2024-05-22 19:44 | XMS_ITS | Encounter Summary ---
Author Organization [facility] [place] [address] Care Team Providers Care Cosmetology Teacher Name Role Phone Talya Siddiqi MD Primary Care Provider Unav ailable Reason for Visit * Reason Onset Date Comments Other 05/02/2014 Ebola Questions Encounter Details Date Type Department Care Team ([facility] Contact Info) Description 05/02/2014 Telephone Family Medicine at [facility] [address] [place] [id number] Viola Peterson Other (Ebola Questions) Social History Tobacco Use Types Packs/Day Years [...] encounter Miscellaneous Notes * Telephone Encounter - Viola Peterson - 05/02/2014 12:16 PM EDT If a patient is feeling ill, ask the following questions: 1. Do you currently have a cough? Answer: no 2. Do you feel like you have a fever? Answer: no If no to both, patient may schedule a regular appointment. Schedule as appropriate. If yes to either, ask: 3. Have you or other household family members travelled internationally in the past month? Answer: n/a If no, instruct patient to wear a mask when they arrive. These can be found at the entrance to all clinics and the hospital. They may be scheduled as usual and may wait in the waiting room for their appointment. If yes, ask if travel included any of these countries: [place] Aditi Srinivasan Answer: n/a If no, instruct patient to wear a mask when they arrive. These can be found at the entrance to all clinics and the hospital. They may be scheduled as usual and may wait in the waiting room for their appointment. If yes: Instruct the patient to proceed to the ED. Contact [facility] Infection Prevention ([facility]) at pager [phone]. Notify the [facility] ED at [phone]. documented in this encounter Plan of Treatment Not on file documented as of this encounter Visit Diagnoses Not on filedocumented in this encounter Care Teams Cosmetology Teacher Relationship Specialty Start Date End Date Talya Siddiqi MD PCP - General 10/07/13 05/26/15 documented as of this encounter
--- OUTSIDE RECORDS SUMMARY | 2024-05-22 19:44 | XMS_ITS | Encounter Summary ---
Author Organization [facility] [place] [id number] Care Team Providers Care Air Pollution Inspector Name Role Phone Addy Bonilla MD Primary Care Provider [phone] Reason for Referral * Consultation (Routine) - Closed Specialty Diagnoses / Procedures Referred By Tonia argueta Referred To Contact Dermatology Diagnoses Skin lesion Harlan Martell [facility] [place] [address] [facility] [address] [place] [address] Referral ID Status Reason Start Date Expiration Date V isits Requested Visits Authorized [id number] Closed Consult, Test & Treat 04/11/2011 10/08/2011 1 1 Reason for Visit * Reason Comments Annual Exam Encounter Details Date Type Department Care Team ([facility] st Contact Info) Description 04/11/2011 1:00 PM EDT Office Visit Family Medicine at [facility] [place] [address] Harlan Martell [facility] [place] [address] Annual physical exam (Primary Dx); Skin lesion; Hirsutism; Hypothyroid; Anxiety Discharge Disposition: Home Social History Tobacco [...] Sign Reading Time Taken Comments Blood Pressure 119/80 04/11/2011 1:04 PM EDT Pulse 72 04/11/2011 1:04 PM EDT Temperature - - Respiratory Rate 16 04/11/2011 1:04 PM EDT Oxygen Saturation 98% 04/11/2011 1:04 PM EDT Inhaled Oxygen Concentration - - Weight 93.4 kg (206 lb) 04/11/2011 1:04 PM EDT Height 165.1 cm (5' 5) 04/11/2011 1:04 PM EDT Body Mass Index 34.28 04/11/2011 1:04 PM EDT documented in this encounter Progress Notes * Harlan Martell APRN - 04/11/2011 3:43 PM EDT PCP: ADDY BONILLA MD Seen by: Harlan Martell, MSN, YOKER cc: Jewel Figueroa is a 30 y.o. year old female presenting for an annual exam Current concerns: 1. Lesion on scalp - has been there for years, feels like it has gotten larger over past year. Wears sunscreen. Family hx of melanoma in grandfather. 2. Hirsutism - hx of unwanted facial hair. Has tried creams to get rid of this, causes irritation. Past Medical History Diagnosis Date ??? Hypothyroidism 04/11/2011 ??? Anxiety 02/16/2011 Patient Active Problem List Diagnoses Code ??? History of UTI V13.02K ??? Anxiety 300.00E ??? Hypothyroidism 244.9AP History reviewed. No pertinent past surgical history. History Social History ??? Marital Status: Single Spouse Name: N/A Number of Children: N/A ??? Years of Education: N/A Occupational History ??? Not on file. Social History Main Topics ??? Smoking status: Former Smoker -- 1.0 packs/day for 15 years Types: Cigarettes Quit date: 04/11/2009 ??? Smokeless tobacco: Never Used ??? Alcohol Use: 0.5 oz/week 1 drink(s) per week ??? Drug Use: No ??? Sexually Active: Yes -- Male partner(s) Other Topics Concern ??? Not on file Social History Narrative Works in [employer], lives with parents, [address] [employer] in [place], sees infrequently Family History Problem Relation Age of Onset ??? High Cholesterol Mother ??? Heart Disease Father heart valve replacement at age 40 ??? Cancer Paternal Grandfather lung cancer ??? Cancer Paternal Aunt lung cancer ROS: GEN: no chills, sweats, fevers, fatigue, unexplained malaise, weight loss EYES: no visual changes ENT: no sore throat, earache, sinus congestion, difficulty swallowing, hearing issues; regular dental care NECK: no masses CV: no chest pain, pressure, OLGUIN, extremity edema, palpitations PULM: no cough, wheeze, SOB BREASTS: no masses, skin changes, tenderness GI: no N/V/D, heartburn, abd pain, constipation, melena, blood in stools : no frequency, urgency, incontinence, hematuria OVEN UNLOADER: LMP: 1 week ago menses: Irregular last month, was late x 1 week, then 1 day of bleeding before regular menstrual cycle Pap history: last Pap 4 years ago, nl, no hx of abnormal pap's Contraception: Using condoms, has been on OCP's in past, reports emotional side effects with use Complaints, menopause: none MSK: no pain, stiffness, change in activity/strength NEURO: no CANDELARIO, dizziness, numbness, weakness, tremors SKIN: no rashes, lesions, + mole on scalp PSYCH: hx of anxiety, symptoms stable on Effexor ER 150 mg/daily, tolerating medication without side effects Physical Exam GEN: AAOx3, NAD EYES: PERRL, EOMI, sclera anicteric - slightly injected, conjunctiva pink, eyelids nl appearing ENT: External canals clear, TMs nl, oropharynx clear, no lesions/exudate NECK: supple, no masses, trachea midline, no thyromegaly LYMPHATIC: nl cervical, axillary, inguinal HEART: RRR S1 S2 nl, no murmurs, no pretibial edema LUNGS: CTA bilat BREASTS: without rashes, dimpling, masses, lesions, tenderness, nipple discharge ABD: soft, nontender, no masses, organomegaly, BS nl : nl external genitalia, no lesions, no rashes; vaginal mucosa pink and rugated, no abnormal discharge, cervix pink and smooth. Bimanual: Uterus small mobile nontender, no CMT, no adnexal tenderness, masses. MSK: ROM/strength equal and nl x 4 extremities NEURO: CN II-XII nl, DTRs 2+/4+, gait normal SKIN: warm, dry, no masses Nevi x 2 on back, no concerning features Left scalp, 4 mm waxy lesion, with telangectasia visible in center + facial hair - on chin, + scattered acne lesions on face, upper back PSYCH: affect and interaction appropriate Annual preventive visit/exam: Skin CA screening: negative by exam today. Discussed sunscreen, sun protection Will refer to dermatology for further evaluation of lesion on scalp (including cervical) CA screening: Pap done today, GC chlamydia done today Will continue with condom use for contraception/STI prevention Breast CA screening: negative by exam today. F/u 1-2 years for CBE, discussed breast self-awareness Cardiometabolic Health: check fasting lipids, fasting glucose Immunizations: Immunization History Administered Date(s) Administered ??? Influenza PF, Split 04/11/2011 ??? Tdap 04/11/2011 ??? Tetanus 10/29/1999 TdaP done today Seasonal influenza today Assessment: 30 y.o. year old female complete physical exam. Plan: Health Care Maintenance: Annual Preventive Care Reviewed and Updated as above f/u in 1-2 years for annual physical Hypothyroidism Check TSH today, f/u with results, adjust med dose as needed Anxiety Stable on current medications Cont Effexor 150 mg daily F/u 3 months Skin lesion, scalp Hirsuitism Vaniqua cream bid for facial hair Schedule for f/u with dermatology for eval of skin lesion, skin check, f/u hirsuitism documented in this encounter Plan of Treatment Scheduled Referrals Name Type Priority Associated Diagnoses Order Schedule REFERRAL TO DERMATOLOGY Outpatient Referral Routine Skin lesion Ordered: 04/11/2011 documented as of this encounter Procedures Procedure Name Priority Date/Time Associated Diagnosis Comments GC/CHLAM Routine 04/11/2011 3:38 PM EDT OVEN UNLOADER CYTOLOGY FINAL REPORT Routine 04/11/2011 3:15 PM EDT GC/CHLAMYDIA Routine 04/11/2011 1:23 PM EDT Annual physical exam CYTOPATHOLOGY GYNECOLOGICAL Routine 04/11/2011 1:09 PM EDT Annual physical exam documented in this encounter Results * GC/CHLAM (04/11/2011 3:38 PM EDT) GC Gene Amp Negative Negative CERNER MILLENNIUM Comment: The only FDA approved specimen types for this assay are cervix, vagina, urethra and urine. ??The sensitivity and specificity of the assay for other specimen types has not been determined. GC Source Cervical CERNER MILLENNIUM Chlamydia Gene Amp Negative Negative CERNER MILLENNIUM Comment: The only FDA approved specimen types for this assay are cervix, vagina, urethra and urine. ??The sensitivity and specificity of the assay for other specimen types has not been determined. Chlm Source Cervical CERNER MILLENNIUM Specimen of unknown material (specimen) 04/11/2011 3:38 PM EDT 04/11/2011 3:38 PM EDT Addy Bonilla MD MICROBIOLOGY - GENER AL ORDERABLES [facility] * OVEN UNLOADER CYTOLOGY FINAL REPORT (04/11/2011 3:15 PM EDT) Operations Manager/Coordinator Cytology Final Report ? [facility] ? Provider: ?? HARLAN MARTELL Pt. Name: ?? BASIL, JEWEL Osborne ? Acc #: ?[id number] ?Pt. ? Col Date: ?? 04/11/2011 ?/Sex: ?1980,(30 years),Female ? Rec Date: ?? 04/11/2011 ?LOC: ?[facility] ? CYTOPATHOLOGY: ??OVEN UNLOADER ? ---Adequacy--- ? Specimen submitted is satisfactory. [...] ? Pelvic Radiation: ? No ? Prior OVEN UNLOADER Therapy?: ? No ? Hist Abnl Pap/Biopsy?: [...] ??For further ? information please contact the [facility]. ? Reference: ??[place] CS. ??Public Services Librarian of Pap Smear Results. ??In: ? Ayana BS, Dustin HH, ed. ??The Pap Smear. ??[place]: ??[place], 2002: ? 71-77. MARIIANER MILLENNIUM 04/11/2011 3:15 PM EDT Harlan Martell APRN PATHOLOGY/CYTOLO GY ORDERABLES JOSE MANUEL IGLESIAS * Cytopathology Gynecological (04/11/2011 1:09 PM EDT) AP Specimen 04/11/2011 1:09 PM EDT 04/11/2011 1:09 PM EDT Narrative CERNER MILLENNIUM - 04/11/2011 1:09 PM EDT Specimen requisition ordered. ??Separate Pathology report to follow Andry Ugarte MD PATHOLOGY/CYTOLOGY O RDERABLES JO[facility] MANUEL IGLESIAS documented in this encounter Visit Diagnoses Diagnosis Annual physical exam- Primary Routine general medical examination at a health care facility Skin lesion Unspecified disorder of skin and subcutaneous tissue Hirsutism Hypothyroid Unspecified hypothyroidism Anxiety Anxiety state, unspecified documented in this encounter Care Teams Air Pollution Inspector Relationship Specialty Start Date End Date Addy Bonilla MD [facility] [place], [place] [id number] PCP - General 02/10/11 08/02/11 documented as of this encounter
--- OUTSIDE RECORDS SUMMARY | 2024-05-22 19:44 | XMS_ITS | Encounter Summary ---
Author Organization [facility] [place] [address] Care Team Providers Care Furnace Combustion Tester Name Role Phone Nadine Mcduffie MD Primary Care Provider [phone] Reason for Visit * Diagnostic Test (Routine) - Closed Specialty Diagnoses / Procedures Referred By Tonia argueta Referred To Contact Radiology Diagnoses Chorea Procedures MRI Brain wo Contrast MRI Brain wwo Contrast (Generic) [facility] [place] [address] [facility] [place] [address] Referral ID Status Reason Start Date Expiration Date V isits Requested Visits Authorized [id number] Closed Specialty Service Requested 05/15/2017 05/15/2018 1 1 Encounter Details Date Type Department Care Team (Latest Contact Info) Description 05/18/2017 1:18 PM EST - 05/18/2017 11:59 PM EST Hospital [place] [address] Kiara Garcia APRN [address] [place], [place] [address] Discharge Disposition: Home Social History Tobacco Use [...] 11/05/2012 06/14/2017 documented as of this encounter Plan of [...] infarct, prior injury or infection. Kiara Garcia SAP ADMINISTRATOR IMG MRI ORDERABL ES documented in this encounter Visit Diagnoses Not on filedocumented in this encounter Care Teams Furnace Combustion Tester Relationship Specialty Start Date End Date Nadine Mcduffie MD [address] [place] [address] PCP - General Family Medicine 03/27/17 documented as of this encounter
--- OUTSIDE RECORDS SUMMARY | 2024-05-22 19:44 | XMS_ITS | Encounter Summary ---
Author Organization [facility] [place] [address] Care Team Providers Care Resource Recovery Engineer Name Role Phone Fausto De León MD Primary Care Provider [phone] Reason for Visit * Reason Onset Date Comments Medication Problem 04/04/2011 Encounter Details Date Type Department Care Team ([facility] Contact Info) Description 04/04/2011 Telephone Family Medicine at [facility] [place] [address] Fausto De León MD [facility] [address] Medication Problem Social History Tobacco Use Types Packs/Day Years Used Date Smoking Tobacco: Former Smokeless Tobacco: Never Alcohol Use Standard Drinks/Week Comments Yes 0.8 (1 standard drink = 0.6 oz p ure alcohol) Sex and Gender Information Value Date Recorded Sex Assigned at Not on file Gender Identity Not on file Sexual Orientation Not on file documented as of this encounter Miscellaneous Notes * Telephone Encounter - Deann Castillo RN - 04/05/2011 2:27 PM EDT Prior auth. For effexor approved this date by Hannah. Dosage changed from 75mg two tablets daily to 150mg one tablet daily. Pt informed. * Telephone Encounter - Dru Harris - 04/04/2011 4:53 PM EDT The patient was told by the pharmacy that she needs a prior authorization for Effexor 150 mg. She uses [facility] in [place]. Pt. Can be reached at [phone]. Thanks Dru documented in this encounter Plan of Treatment Not on file documented as of this encounter Visit Diagnoses Not on filedocumented in this encounter Care Teams Resource Recovery Engineer Relationship Specialty Start Date End Date Fausto De León MD [facility] [place] [address] PCP - General 02/10/11 08/02/11 documented as of this encounter
--- OUTSIDE RECORDS SUMMARY | 2024-05-22 19:44 | XMS_ITS | Encounter Summary ---
Author Organization [facility]ly [facility] [place] [address] Care Team Providers Care Java Systems Analyst Name Role Phone Nadine Mcduffie MD Primary Care Provider [phone] Reason for Visit * Reason Comments Fatigue Encounter Details Date Type Department Care Team ([facility] Contact Info) Description 03/27/2017 2:39 PM EDT - 03/27/2017 6:01 PM EDT Emergency [place] [address] Rui Mae MD [facility] [place] [address] Fatigue, unspecified type; Asthenia; Facial pain; Paresthesia; Hypothyroidism, unspecified type Discharge Disposition: Home Social History Tobacco Use [...] Sign Reading Time Taken Comments Blood Pressure 137/88 03/27/2017 12:53 PM EDT Pulse 95 03/27/2017 12:53 PM EDT Temperature 36.6 ??C (97.9 ??F) 03/27/2017 12:53 PM E DT Respiratory Rate 12 03/27/2017 12:53 PM EDT Oxygen Saturation 97% 03/27/2017 12:53 PM EDT Inhaled Oxygen Concentration - - Weight 104.3 kg (230 lb) 03/27/2017 12:53 PM EDT Height - - Body Mass Index 38.79 11/26/2014 2:02 PM EDT documented in this encounter Discharge Instructions * Discharge Instructions* Chidi Baig IV - 03/27/2017 5:41 PM EDT You were seen today for fatigue. Your labwork showed that your thyroid stimulating hormone (TSH) was slightly elevated 4.87, which may indicate your fatigue could be a result of having hypothyroidism. Please follow up with your PCP regarding this issue Please take all of your medications as scheduled. Return the Emergency room if you experience chest pain, difficulty breathing, loss of consciousness, fevers over 100.4F or any other concerns. [facility] Fatigue: Care Instructions Your Care Instructions Fatigue is a feeling of tiredness, exhaustion, or lack of energy. You may feel fatigue because of too much or not enough activity. It can also come from stress, lack of sleep, boredom, and poor diet.Many medical problems, such as viral infections, can cause fatigue. Emotional problems, especially depression, are often the cause of fatigue. Fatigue is most often a symptom of another problem. Treatment for fatigue depends on the cause. Forexample, if you have fatigue because you have a certain health problem, treating this problem also treats your fatigue. If depression or anxiety is the cause, treatment may help. Follow-up care is a almeida part of your treatment and safety. Be sure to make and go to all appointments, and call your doctor if you are having problems. It's also a good idea to know your test resultsand keep a list of the medicines you take. How can you care for yourself at home? ?? Get regular exercise. But don't overdo it. Go back and forth between rest and exercise. ?? Get plenty of rest. ?? Eat a healthy diet. Do not skip meals, especially breakfast. ?? Reduce your use of caffeine, tobacco, and alcohol. Caffeine is most often found in coffee, tea, cola drinks, and chocolate. ?? Limit medicines that can cause fatigue. This includes tranquilizers and cold and allergy medicines. When should you call for help? Watch closely for changes in your health, and be sure to contact your doctor if: ?? You have new symptoms such as fever or a rash. ?? Your fatigue gets worse. ?? You have been feeling down, depressed, or hopeless. Or you may have lost interest in things thatyou usually enjoy. You are not getting better as expected. * Attachments The following attachments cannot be sent through Care Everywhere. * HYPOTHYROIDISM (FRISIAN) documented in this encounter Medications at Time of Discharge Medication Sig Dispensed Refills Start Date End Date venlafaxine (EFFEXOR XR) 75 mg Capsule, Sust. Release 24 hr Take 1 capsule by mouth daily. Total 225mg daily - see other script for substitution options 90 capsule 3 05/11/2015 05/05/2017 venlafaxine (EFFEXOR-XR) 150 mg Capsule, Sust. Release 24 hrIndications:Anxiet y Take 1 capsule by mouth daily. Add 75mg to total 225mg daily - may substitute 3x75mg, 150+75mg, or 225mg tablet daily 90 capsule 3 05/11/2015 07/27/2018 Soap BarIndications:Folli culitis Use twice weekly to affected areas. 1 Bar 2 11/26/2014 05/05/2017 clonazePAM (KLONOPIN) 0.5 mg TabletIndications:An xiety Take 1 tablet by mouth daily as needed for Anxiety. 20 tablet 0 11/26/2014 05/05/2017 chlorhexidine (HIBICLENS) 4 % LiquidIndications:Fo lliculitis Wash affected areas once weekly as needed. 120 mL 1 11/26/2014 01/23/2020 acetaminophen-codein e (TYLENOL #3) 300-30 mg per tabletIndications:De ntal infection 1-2 nightly prn 10 tablet 0 10/07/2013 05/05/2017 levothyroxine (SYNTHROID) 50 mcg tabletIndications:Hy pothyroidism Take 1 tablet by mouth daily. 90 tablet 3 11/05/2012 06/14/2017 documented as of this encounter ED Notes * Alejandra Higginbotham - 03/27/2017 6:01 PM EDT Chief Complaint Patient presents with ??? Fatigue The history is provided by the patient and a parent. This is a 36 yo female with history of hypothyroidism who presents with a 2 day history of fatigue and weakness. States that has been eating and drinking, lam bathroom habits. Feels like she has a cold. Has been taking levothyroxine as prescribed, but has not follow up with dose adjustments/PCP for 2-3 years. Denies any fevers or chills. In discussion with the patient, she stated that she feels that she can leave and make an appointment with her PCP. We had a discussion of some labs we could do, and that she has to follow up within the next week regarding her fatigue. The patient was agreeable to this plan. Allergies Allergen Reactions ??? Hydrocodone-Acetaminophen mood lability ??? Sulfa (Sulfonamide Antibiotics) edema ??? Penicillins Rash Review of Systems Constitutional: Positive for activity change and fatigue. Negative for appetite change, chills, diaphoresis, fever and unexpected weight change. HENT: Negative. Respiratory: Negative. Cardiovascular: Negative. Gastrointestinal: Negative. Genitourinary: Negative. Musculoskeletal: Negative. Skin: Negative. Neurological: Positive for weakness. Negative for dizziness, syncope, light- headedness, numbness and headaches. Physical Exam Constitutional: She is oriented to person, place, and time. She appears well- developed and well-nourished. HENT: Head: Normocephalic and atraumatic. Eyes: Conjunctivae and EOM are normal. Pupils are equal, round, and reactive to light. Neck: Normal range of motion. Neck supple. Cardiovascular: Normal rate and normal heart sounds. Exam reveals no gallop and no friction rub. No murmur heard. Pulmonary/Chest: Effort normal and breath sounds normal. Abdominal: Soft. Bowel sounds are normal. She exhibits no distension. There is no tenderness. Musculoskeletal: Normal range of motion. Neurological: She is alert and oriented to person, place, and time. No cranial nerve deficit. Coordination normal. Skin: Skin is warm and dry. Procedures MDM Number of Diagnoses or Management Options Fatigue, unspecified type: new, needed workup Diagnosis management comments: This is a 36 yo female with history of hypothyroidism. States that it happened in the past day, no real triggers. Still tolerating PO intake, no changes in bowel or urine habits. Feels sick, but can't pinpoint to what it is, other than perhaps a migraine. Will get basic labs, follow-up with PCP. Patient wished to leave after receiving IV fluids. Patient agreeable tocoming back if new symptoms arise or if symptoms progressively get worse. Alejandra Higginbotham MD Resident 04/01/17 1615 Associated attestation - Rui Mae MD - 04/02/2017 10:02 AM EDT I have personally seen and examined the patient. I reviewed the patient with Dr. Higginbotham and agree with the almeida findings and plan. * Jenny Calderón RN - 03/27/2017 6:00 PM EDT 1600; IV access established to right antecubital, blood work obtained as ordered. Patient toleratedwell. Patient verified with two identifiers and labeled at the bedside. 1606; IV fluids infusing as ordered, patient to be discharged when completed per Dr. Higginbotham. Call vale in reach. 1745; ED resident at bedside. 1755; IV no longer indicated, Discontinued tip intact as per policy/procedure, bleeding controlled,DSD in place; Patient tolerated well. 1758; Reviewed patient's discharge instructions and follow up as ordered by provider; no changes trae made to medications and concerns and symptoms to return for discussed. Patient verbalized her understanding. * Chidi Baig IV - 03/27/2017 4:13 PM EDT ED RESIDENT FOLLOW-UP NOTE: Time of transfer of care: 1600 Care transferred from: Dr. Higginbotham Condition at time of transfer: stable Clinical Summary: 36 y.o. old female in the process of being evaluated for fatigue. Please see Dr. Higginbotham's notes for initial evaluation, assessment and plan. Briefly, she presented with fatigue Subsequent ED Course: -CBC, BMP normal and patient to receive fluid bolus - TSH slightly elevated 4.87 - Will recommend f/u with PCP and plenty of water intake - Patient will be discharged Chidi Baig MD PGY-2 General Surgery Pager [phone] SHIV Baig MD Resident 03/27/17 [id number] Associated attestation - Rui Mae MD - 03/28/2017 1:39 PM EDT I have personally seen and examined the patient. I reviewed the patient with Drs. Baig and Neftaly and agree with the almeida findings and plan. The patient presents with worsening fatigue. Patient woke upwith a headache yesterday which lasted approximately an hour. It felt like previous tension headaches she has had in the past. Later in the day she developed increasing fatigue. She denies any fever or chills. She has no new joint pains or swelling. She has some intermittent tingling in her right arm which is chronic. Evaluation in the emergency department was unremarkable except for a slightly elevated TSH at 4.87. The patient will follow up with her PCP as soon as possible for further evaluation of this. documented in this encounter Miscellaneous Notes * ED Triage - Martha Uriarte RN - 03/27/2017 12:52 PM EDT Pt presents to ED reporting weakness, RUE numbness and tingling, pulled muscle in abdomen. Deniesfever/chills. Skin pwd. Resps equal and non labored. Ambulated without difficulty. documented in this encounter Plan of Treatment Not on file documented as of this encounter Procedures Procedure Name Priority Date/Time Associated Diagnosis Comments HEMOGRAM STAT 03/27/2017 3:34 PM EDT DIFFERENTIAL, AUTOMATED STAT 03/27/2017 3:34 PM EDT GOLD TUBE HOLD STAT 03/27/2017 3:34 PM EDT BLUE TUBE HOLD STAT 03/27/2017 3:34 PM EDT CBC (WITH DIFF) STAT 03/27/2017 3:34 PM EDT TSH STAT 03/27/2017 3:34 PM EDT BASIC METABOLIC PANEL STAT 03/27/2017 3:34 PM EDT documented in this encounter Results * Gold Tube HOLD (03/27/2017 3:34 PM EDT) Gold Hold Sample in lab. [facility] Blood specimen (specimen) Venous Draw / Unknown 03/27/2017 3:34 PM EDT 03/27/2017 4:38 PM EDT Rui Mae MD CHEMISTRY ORDERABLE S Performing Organization Address [facility]/ZIP Co de Phone Number [facility] [place] [address] * Blue Tube HOLD (03/27/2017 3:34 PM EDT) [facility] Blue Hold Sample in lab. [facility] Blood specimen (specimen) Venous Draw / Unknown 03/27/2017 3:34 PM EDT 03/27/2017 4:38 PM EDT Rui Mae MD HEMATOLOGY ORDERABL ES Performing Organization Address [facility]/ZIP Co de Phone Number [facility] [place] [address] * (ABNORMAL) Differential, Automated (03/27/2017 3:34 PM EDT) Neutrophil % 72.3 % [facility] Neutrophil Absolute 9.28(H) 1.70 - 6.10 x10(3)/mc L [facility] Lymph % 18.8 % [facility] Lymphocytes Abs 2.4 0.9 - 3.2 x10(3)/mc L [facility] Monocyte % 6.8 % [facility] Monocyte Abs 0.9 0.3 - 0.9 x10(3)/[facility] Eos % 1.2 % [facility] Eosinophils Abs 0.2 0.0 - 0.4 x10(3)/[facility] Basophil % 0.5 % [facility] Baso Absolute 0.1 0.0 - 0.1 x10(3)/[facility] Immature Gran % 0.40 % [facility] Comment: Immature granulocytes(IG's)percentage and absolute count will include metamyelocytes, myelocytes, and promyelocytes. Blood smears from CBCs yielding IG's will be scanned manually for concordance. If this scan disagrees with the automated IG or if promyelocytes are noted, a manual differential will be performed. Immature Gran Absolute 0.05(H) 0.00 - 0.04 x10(3)/[facility] Blood specimen (specimen) 03/27/2017 3:34 PM EDT 03/27/2017 4:37 PM EDT Narrative Resulting Agency Comment Spec In Lab Rui Mae MD HEMATOLOGY ORDERABL ES [facility] [place] [place] [address] * (ABNORMAL) Hemogram (03/27/2017 3:34 PM EDT) White Blood Cell 12.8(H) 4.0 - 9.5 x10(3)/[facility] Red Blood Cell 5.13 4.00 - 5.21 x10(6)/[facility] Hemoglobin 14.9 11.7 - 15.5 gm/dL [facility] Hematocrit 44.3 35.7 - 45.8 % [facility] Mean Cell Volume 86.4 82.6 - 94.4 fL [facility] Mean Cell Hemoglobin 29.0 27.1 - 32.0 pg [facility] Mean Cell Hemoglobin Concentration 33.6 31.7 - 35.0 gm/dL [facility] Platelet 273 145 - 357 x10(3)/mc L [facility] RDW Standard Deviation 39.4 37.0 - 46.0 fL [facility] RDW coefficient of variation 12.4 11.5 - 14.1 % [facility] Mean Platelet Volume 10.9 7.6 - 12.9 fL [facility] NRBC% auto 0.0 % [facility] NRBC Absolute 0.000 0.000 - 0.000 x10(3)/mc L [facility] Blood specimen (specimen) 03/27/2017 3:34 PM EDT 03/27/2017 4:37 PM EDT Narrative Resulting Agency Comment Spec In Lab Rui Mae MD HEMATOLOGY ORDERABL ES Performing Organization Address [facility] Co de Phone Number [facility] [place] [address] * (ABNORMAL) TSH (03/27/2017 3:34 PM EDT) Thyroid Stimulating Hormone 4.87(H) 0.27 - 4.20 mlU/ML [facility] Blood specimen (specimen) 03/27/2017 3:34 PM EDT 03/27/2017 4:37 PM EDT Narrative Resulting Agency Comment Spec In Lab Rui Mae MD CHEMISTRY ORDERABLE S Performing Organization Address City/[facility]/ZIP Co de Phone Number [facility] [place] [address] * Basic Metabolic Panel (non-fasting) (03/27/2017 3:34 PM EDT) Glucose 110 65 - 199 mg/dL [facility] Comment:Diabetes: >=200 mg/d L plus symptoms Blood Urea Nitrogen 8 8 - 18 mg/dL [facility] Creatinine 0.91 0.70 - 1.20 mg/dL [facility] Comment: Please note that the pediatric reference intervals supplied above were not validated [place] [facility] [place] Results from pediatric patients should be interpreted in conjunction to the patient's age, height and muscle mass. Sodium 141 135 - 145 mmol/L [facility] Potassium 4.0 3.5 - 5.0 mmol/L [facility] Comment: Please note: ??Patients with WBC >100,000 may have falsely elevated Potassium levels. ??For accurate Potassium quantification in these patients send serum separator tube (gold top) for subsequent determinations. ??Contact the Clinical Chemistry Laboratory if there are any questions. Chloride 101 98 - 107 mmol/L [facility] Carbon Dioxide 28 22 - 31 mmol/L [facility] Anion Gap 12 5 - 15 mmol/L [facility] Calcium 9.4 8.5 - 10.5 mg/dL [facility] Est Glomerular Filtration Rate >60 >=60 [facility] Comment: This estimated GFR (eGFR) value was calculated using the MDRD equation which has been validated on patients between the ages of 18 and 70. The MDRD should not be used to assess kidney function in patients < 18 years of age or in patients with extremes of body mass, or in patients with acute kidney failure. This value should be multiplied by 1.2 for patients. For further information please copy and paste the following links into your internet browser. [email or web address] [email or web address] Blood specimen (specimen) 03/27/2017 3:34 PM EDT 03/27/2017 4:37 PM EDT Narrative Resulting Agency Comment Spec In Lab Rui Mae MD CHEMISTRY ORDERABLE S [facility] [place] [address] documented in this encounter Visit Diagnoses Diagnosis Fatigue, unspecified type Asthenia Other malaise and fatigue Facial pain Headache Paresthesia Disturbance of skin sensation Hypothyroidism, unspecified type documented in this encounter Administered Medications Inactive Administered Medications - up to 3 most recent administrations Medication Order MAR Action Action Date Dose Rate Site sodium chloride 0.9% 1,000 mL IV bolus at 4,000 mL/hr, Intravenous, ONCE, 1 dose, On Mon03/27/17 at 1535 Given 03/27/2017 4:06 PM EDT 4000 mL/hr documented in this encounter Active and Recently Administered Medications Times are shown in EDT. Scheduled Medication Order 03/25/2017 03/26/2017 03/27/2017 sodium chloride 0.9% 1,000 mL IV bolus (COMPLETED) at 4,000 mL/hr, Intravenous, ONCE, 1 dose, On Mon03/27/17 at 1535 1606 (Given - Provid er: Jenny Calderón RN) documented in this encounter Care Teams Java Systems Analyst Relationship Specialty Start Date End Date Nadine Mcduffie MD [address] [place] [address] PCP - General Family Medicine 03/27/17 documented as of this encounter
--- OUTSIDE RECORDS SUMMARY | 2024-05-22 19:44 | XMS_ITS | Encounter Summary ---
Author Organization [facility] [place] [address] Care Team Providers Care County Commissioner Name Role Phone Lew Chris Tamez DO Primary Care Provider [phone] Reason for Visit * Reason Comments Cough x 2 weeks Nasal Congestion Fatigue Shortness of Breath Encounter Details Date Type Department Care Team ([facility] Contact Info) Description 10/26/2011 9:20 AM EDT Office Visit Family Medicine at [facility] [place] [address] Eliane Elizabeth, [facility] [place] [address] URI (upper respiratory infection) (Primary Dx); Cough; Tobacco use Discharge Disposition: Home Social History Tobacco Use [...] Sign Reading Time Taken Comments Blood Pressure 124/74 10/26/2011 9:17 AM EDT Pulse 91 10/26/2011 9:17 AM EDT Temperature 36.9 ??C (98.4 ??F) 10/26/2011 9:17 AM ED T Respiratory Rate 14 10/26/2011 9:17 AM EDT Oxygen Saturation 97% 10/26/2011 9:17 AM EDT Inhaled Oxygen Concentration - - Weight 100.6 kg (221 lb 12.8 oz) 10/26/2011 9:17 AM EDT Height 165.1 cm (5' 5) 10/26/2011 9:17 AM EDT Body Mass Index 36.91 10/26/2011 9:17 AM EDT documented in this encounter Progress Notes * Eliane Elizabeth, HEALTH AND SOCIAL CARE TEACHER - 10/26/2011 9:41 AM EDT HPI: 30 y.o. female presents with 2.5 weeks s/s. Started with head congestion, started claritin for possible allergies. Continues with head congestion, possibly a bit better; continues with nasal discharge, now green one week. Started with chest congestion 1.5 weeks after initial s/s started, with produc tive cough green secretions, hoarse voice. Notes some difficulty breathing after extended exertion.Had fever/chills a week ago, not since. Notes headache all along, no facial pain but does note lateral sinus pain. Menses now 11 days late, home neg - acknowledges quite stressed at work, works a lot of overtime and is in midst of divorce. Has quit tobacco two years, started again few months ago, in the midst of divorce. Plans to quit in next month or so, has patches. History Smoking status ??? Current Everyday Smoker -- 0.5 packs/day for 15 years ??? Types: Cigarettes ??? Last Attempt to Quit: 04/11/2009 Smokeless tobacco ??? Never Used ROS: see HPI above Patient Active Problem List Diagnoses Code ??? History of UTI V13.02K ??? Anxiety 300.00E ??? Hypothyroidism 244.9AP Current outpatient prescriptions ordered prior to encounter Medication Sig Dispense Refill ??? venlafaxine (EFFEXOR-XR) 150 mg 24 hr capsule Take 1 capsule by mouth daily. 90 capsule 4 ??? ALPRAZolam (XANAX) 0.25 mg tablet Take 1 tablet by mouth daily as needed. 10 tablet 0 ??? levothyroxine (SYNTHROID) 50 mcg tablet Take 1 tablet by mouth daily. 30 tablet 1 ??? Eflornithine 13.9 % Crea Apply topically 2 times daily. At least 8 hours apart, do not rinse for 4 hours, discontinue if irritation occurs 30 g 2 ??? vitamin E 400 unit capsule Take 400 Units by mouth daily. Allergies Allergen Reactions ??? Sulfa (Sulfonamide Antibiotics) edema ??? Hydrocodone-acetaminophen mood lability ??? Penicillins Rash Physical Exam: Filed Vitals: 10/26/11 0917 BP: 124/74 Pulse: 91 Temp: 36.9 ??C (98.4 ??F) TempSrc: Oral Resp: 14 Height: 165.1 cm (5' 5) Weight: 100.608 kg (221 lb 12.8 oz) SpO2: 97% General: alert, oriented, no acute distress ENT: TMs normal. No sinus tenderness. Nasal mucosa pink and moist, mild edema. Pharynx without erythema, exudate, enlarged tonsils. NECK: soft and supple, no lymphadenopathy. LUNGS: CTA bilat, no crackles or wheezes Assessment/Plan: URI/cough, tobacco use: would hold on antibiotics at this point, may need to consider later this week or next week; call office Reviewed home care, otc med use and options, fluids/rest. Reviewed hx presentation findings with patient. Note given for work that she was seen, should take time off and rest, OK to return to work 10/28. documented in this encounter Plan of Treatment Not on file documented as of this encounter Visit Diagnoses Diagnosis URI (upper respiratory infection)- Primary Acute upper respiratory infections of unspecified site Cough Tobacco use Tobacco use disorder documented in this encounter Care Teams County Commissioner Relationship Specialty Start Date End Date Chris Hackett DO [facility] [address] [facility] [place] [address] PCP - General 08/03/11 05/15/12 documented as of this encounter
--- OUTSIDE RECORDS SUMMARY | 2024-05-22 19:44 | XMS_ITS | Encounter Summary ---
Author Organization [facility] [place] [address] Care Team Providers Care Braddisher Name Role Phone Fausto De León MD Primary Care Provider [phone] Reason for Visit * Reason Onset Date Comments Other 04/05/2011 Problem with Eff exor Encounter Details Date Type Department Care Team ([facility] Contact Info) Description 04/05/2011 Telephone Family Medicine at [facility] [place] [address] Fausto De León MD [facility] [place] [address] Other (Problem with Effexor) Social History Tobacco Use Types Packs/Day Years [...] encounter Miscellaneous Notes * Telephone Encounter - Sara Martell APRN - 04/05/2011 1:36 PM EDT Prior auth done - rx updated * Telephone Encounter - Dru Harris - 04/05/2011 10:55 AM EDT Sara: The patient called stating that she needed a prior authorization which I put the message in yesterday. This is for her Effexor. She is all out of this medication. Cannot afford 10.99 a day to buy some until it is in. She is wondering what she can do. Pt. Can be reached at [phone] work and ask for [employer] - She will be at this number until 5 or 5::30. Thanks Dru documented in this encounter Plan of Treatment Not on file documented as of this encounter Visit Diagnoses Not on filedocumented in this encounter Care Teams Braddisher Relationship Specialty Start Date End Date Fausto De León MD [facility] [place] [address] PCP - General 02/10/11 08/02/11 documented as of this encounter
--- OUTSIDE RECORDS SUMMARY | 2024-05-22 19:44 | XMS_ITS | Encounter Summary ---
Author Organization [facility] [place] [place] [address] Care Team Providers Care Panama Hat Blocker Name Role Phone Chris Hackett DO Primary Care Provider [phone] Encounter Details Date Type Department Care Team ([facility] Contact Info) Description 04/11/2012 Telephone Family Medicine [facility] [place] [address] Piedad Delgado APRN [facility] [place] [address] Social History Tobacco Use Types Packs/Day Years [...] encounter Miscellaneous Notes * Telephone Encounter - Fara Sánchez LPN - 04/11/2012 11:17 AM EDT Error documented in this encounter Plan of Treatment Not on file documented as of this encounter Visit Diagnoses Not on filedocumented in this encounter Care Teams Panama Hat Blocker Relationship Specialty Start Date End Date Chris Hackett DO [facility] [address] [facility] [place] [address] PCP - General 08/03/11 05/15/12 documented as of this encounter
--- OUTSIDE RECORDS SUMMARY | 2024-05-22 19:44 | XMS_ITS | Encounter Summary ---
[place] [address] Care Team Providers Care Dye Jig Operator Name Role Phone Nadine Mcduffie MD Primary Care Provider [phone] Reason for Referral * Diagnostic Test (Routine) - Closed Specialty Diagnoses / Procedures Referred By Tonia argueta Referred To Contact Radiology Diagnoses Abnormal MRI Myoclonus Procedures MRI Brain wwo Contrast (Generic) MRI Brain w Contrast Brianna Collado MD [facility] [address] [place] [address] Referral ID Status Reason Start Date Expiration Date V isits Requested Visits Authorized [id number] Closed Specialty Service Requested 06/08/2017 09/28/2017 1 1 Reason for Visit * Consultation (Routine) - Specialty Diagnoses / Procedures Referred By Tonia argueta Referred To Contact Neurology Diagnoses MRI brain abnormal, chorea Kiara Garcia APRN [address] [place] [address] [facility] Neu[facility] [address] [place] [id number] Referral ID Status Reason Start Date Expiration Date V isits Requested Visits Authorized [id number] Consult, Test & Treat Connection Center PCP Updated and/or Approved 05/22/2017 05/22/2018 6 6 Encounter Details Date Type Department Care Team (Late st Contact Info) Description 05/31/2017 11:00 AM EST Office Visit Neurology at [facility] [place] [address] Brianna Collado MD [facility] [place] [address] Myoclonus (Primary Dx); Abnormal MRI Social History Tobacco Use Types [...] Sign Reading Time Taken Comments Blood Pressure 111/64 05/31/2017 11:03 AM EST Pulse 85 05/31/2017 11:03 AM EST Temperature - - Respiratory Rate - - Oxygen Saturation - - Inhaled Oxygen Concentration - - Weight 107.5 kg (237 lb) 05/31/2017 11:03 AM EST Height 165.1 cm (5' 5) 05/31/2017 11:03 AM EST reported Body Mass Index 39.44 05/31/2017 11:03 AM EST documented in this encounter Progress Notes * Brianna Collado MD - 05/31/2017 11:00 AM EST [facility] Movement Disorders New Patient Evaluation Date of service 05/31/2017 Referring provider Kiara Garcia APRN [address] [place] [address] Cc: right arm twitches History of present illness Aria Figueroa is a 36 y.o. right handed woman who presents to the movement disorders clinic for evaluation of arm movements. She has been having a twitch in her right arm for the past 6 months (about October 2016). This was a sudden onset and worsening over time. No associated pain. The movements persist in sleep according to her . Nothing seems to make it better. The movements are worse in the morning and during voluntary movement on the right arm. She is frustrated because it is her dominant hand and this makes everyday activities difficult. Her PMH is significant only for hypothyroidism and anxiety. Recent MRI brain was abnormal (imaging reviewed below) and she was referred for further evaluation. Patient Active Problem List Diagnosis Code ??? Anxiety F41.9 ??? Hypothyroidism E03.9 ??? Body mass index (BMI) of 36.0-36.9 in adult Z68.36 ??? Abnormal MRI R93.8 ??? 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 venlafaxine (EFFEXOR-XR) 150 mg Capsule, Sust. Release 24 hr, Take 1 capsule by mouth daily. Add 75mg to total 225mg daily - may substitute 3x75mg, 150+75mg, or 225mg tablet daily, Disp: 90 capsule, Rfl: 3 ??? chlorhexidine (HIBICLENS) 4 % Liquid, Wash affected areas once weekly as needed., Disp: 120 mL,Rfl: 1 ??? levothyroxine (SYNTHROID) 50 mcg tablet, Take 1 tablet by mouth daily., Disp: 90 tablet, Rfl: 3 Past Medical History: Diagnosis Date ??? Anxiety 02/16/2011 ??? Gallstone ??? Hypothyroidism 04/11/2011 ??? Varicella Past Surgical History: Procedure Laterality Date ??? 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 High Cholesterol Mother ??? Heart Disease Father heart valve replacement at age 40 ??? Aneurysm Father ??? Cerebrovascular Accident Father ??? Cancer Paternal Grandfather lung cancer ??? Cancer Paternal Aunt lung cancer Review of Systems - All others negative except as per HPI Physical Exam Most Recent Vitals: 05/31/17 1103 BP: 111/64 Pulse: 85 General: the patient appears stated age, not in any acute distress, well groomed, Body mass index is 39.44 kg/(m^2). HEENT: normal cephalic atraumatic, eye conjunctiva moist with no abnormal discharge, no abnormal nasal discharge Voice/language: no vocal tremor or dysarthria. Normal fluency and comprehension Skin: no lesions or abrasions on exposed surfaces Neck: full ROM Extremities: full ROM and no visible deformities Mental status: oriented to place, self, date and reason for visit Cranial Nerves: I: not tested II: PERRL III, IV, : EOMI, normal saccades and pursuit V: facial sensation normal bilaterally VII: face symmetrical to voluntary movements and expressions VIII: hearing test by calibrated finger rub auditory screening test (CALFRAST) was normal IX, X, XII: swallowing normal, soft palette with normal rise, uvula visible in midline, tongue protrusion in midline XI: SCM 5/5 strength bilaterally Strength: 5/5 strength throughout Sensory: vibratory and light touch sensation intact and symmetrical on extremities Reflexes: 2/4 symmetrical throughout except as noted below Plantar responses were flexor bilaterally Coordination: Finger to nose: normal left but right side activation worsens the jerks Gait: Patient stood up without pushing off, normal base and stance, normal arm swing, steady turns, Rightarm jerks continue throughout ambulation. Left hand writhing movements during ambulation. Additional movement disorder specific findings: Right intermittent myoclonic jerks worsening on moving the arm Tone is normal Review of available labs and imaging: MRI brain personally reviewed. There is a right posterior frontal area of T2 hyperintensity along the motor cortex. Cerebral volume and gyri appear normal. Assessment and plan: # myoclonus She has had about 6 months of right upper extremity jerking movements. Recent MRI brain was significant for T2 hyperintensity along the left motor cortex. The shape of this is a little unusual for stroke. Given the movements there is concern for ongoing focal seizures. There does not appear to be any mass effect on the MRI which would indicate an underlying space occupying lesion but I do think further evaluation with contrast MRI would be warranted. She will also have an EEG ENMA. Labs today for causes within differential of T2 signal change including autoimmune studies and hypercoaguble studies. Depending on the above work up we will discuss treatment options and possible further diagnostics. Would have low threshold to perform an LP. Follow up to be scheduled Brianna Collado MD [facility] Neurology-Movement Disorders documented in this encounter Plan of Treatment Not on file documented as of this encounter Procedures Procedure Name Priority Date/Time Associated Diagnosis Comments LYME IGG & IGM ANTIBODY Routine 05/31/2017 12:19 PM EST Abnormal MRI Myoclonus EXTRACTABLE NUCLEAR ANTIGEN (MICHAEL) AB Routine 05/31/2017 12:19 PM EST Abnormal MRI Myoclonus FACTOR 5 MUTATION Routine 05/31/2017 12: 19 PM EST Abnormal MRI Myoclonus CALCIUM IONIZED SERUM Routine 05/31/2017 12:19 PM EST Abnormal MRI Myoclonus HEMOGRAM Routine 05/31/2017 12:19 PM EST Abnormal MRI Myoclonus DIFFERENTIAL, AUTOMATED Routine 05/31/2017 12:19 PM EST Abnormal MRI Myoclonus CERULOPLASMIN Routine 05/31/2017 12:19 PM EST Abnormal MRI Myoclonus CARDIOLIPIN ANTIBODY SCREEN Routine 05/31/2017 12:19 PM EST Abnormal MRI Myoclonus CBC (WITH DIFF) Routine 05/31/2017 12:19 PM EST Abnormal MRI Myoclonus RAEANN ANTIBODY SCREEN Routine 05/31/2017 1 2:19 PM EST Abnormal MRI Myoclonus TSH Routine 05/31/2017 12:19 PM EST Abnormal MRI Myoclonus T4, FREE Routine 05/31/2017 12:19 PM EST Abnormal MRI Myoclonus FERRITIN Routine 05/31/2017 12:19 PM EST Abnormal MRI Myoclonus VITAMIN B12 Routine 05/31/2017 12:19 PM EST Abnormal MRI Myoclonus COMPREHENSIVE METABOLIC PANEL Routine 05/31/2017 12:19 PM EST Abnormal MRI Myoclonus documented in [...] of abnormal signal identified. Small areas of P4tvowey alteration in the white matter in the right frontal lobe are unchanged.There is no abnormal enhancement elsewhere. Major intracranial flow voids arenormal. There is no restricted diffusion. IMPRESSION Unchanged area of signal abnormality around the left central sulcus. No enhancement, or new area of abnormal signal. Brianna Collado MD IMG MRI ORDERABLES * EEG; INCLUDING RECORDING AWAKE AND DROWSY PRFM (06/02/2017 6:21 PM EST) Narrative Steven Chicas MD - 06/02/2017 6:21 PM EST Steven Chicas MD ? 06/02/2017 ??6:21 PM [facility] Department of Neurology Out patient ??EEG [...] channel digitized electroencephalogram was performed in the [facility] Clinical Neurophysiology Laboratory. The 10/20 international system of electrode placement was used and bipolar and referential electrode montages were recorded. ??In addition to EEG the patient was monitored for EKG and lateral/vertical eye movements. Video was recorded during the session. The duration of the recording was 30 minutes. [facility] HISTORY PROFESSOR'S REPORT: Performed by: Adeline Patient was sleep [...] Dobson MD PGY-2 Neurology Resident Pager # [phone] 06/01/2017 10:35 PM. CC: Nadine Mcduffie MD EPILEPSY ATTENDING ADDENDUM - I reviewed the EEG with the Neurology Resident, and I agree with the interpretation as documented. Steven Chicas MD, PhD Dobby Loom Weaver of Neurology [facility] Clinical Neurophysiology Laboratory Brianna Collado MD NEUROLOGY ORDERABL ES * (ABNORMAL) Differential, Automated (05/31/2017 12:19 PM EST) Neutrophil % 69.1 % [facility] Neutrophil Absolute 8.61(H) 1.70 - 6.10 x10(3)/mc L [facility] Lymph % 20.6 % [facility] Lymphocytes Abs 2.6 0.9 - 3.2 x10(3)/mc L [facility] Monocyte % 6.5 % [facility] Monocyte Abs 0.8 0.3 - 0.9 x10(3)/mc L [facility] Eos % 2.8 % [facility] Eosinophils Abs 0.4 0.0 - 0.4 x10(3)/[facility] Basophil % 0.6 % [facility] Baso Absolute 0.1 0.0 - 0.1 x10(3)/[facility] Immature Gran % 0.40 % [facility] Comment: Immature granulocytes(IG's)percentage and absolute count will include metamyelocytes, myelocytes, and promyelocytes. Blood smears from CBCs yielding IG's will be scanned manually for concordance. If this scan disagrees with the automated IG or if promyelocytes are noted, a manual differential will be performed. Immature Gran Absolute 0.05(H) 0.00 - 0.04 x10(3)/[facility] Blood specimen (specimen) 05/31/2017 12:19 PM EST 05/31/2017 12:26 PM EST Narrative Resulting Agency Comment Spec In Lab Brianna Collado MD HEMATOLOGY ORDERAB LES [facility] [place] [address] * (ABNORMAL) Hemogram (05/31/2017 12:19 PM EST) White Blood Cell 12.5(H) 4.0 - 9.5 x10(3)/[facility] Red Blood Cell 4.93 4.00 - 5.21 x10(6)/[facility] Hemoglobin 14.5 11.7 - 15.5 gm/dL [facility] Hematocrit 42.8 35.7 - 45.8 % [facility] Mean Cell Volume 86.8 82.6 - 94.4 fL [facility] Mean Cell Hemoglobin 29.4 27.1 - 32.0 pg [facility] Mean Cell Hemoglobin Concentration 33.9 31.7 - 35.0 gm/dL [facility] Platelet 273 145 - 357 x10(3)/mc L [facility] RDW Standard Deviation 40.0 37.0 - 46.0 [facility] RDW coefficient of variation 12.5 11.5 - 14.1 % [facility] Mean Platelet Volume 10.6 7.6 - 12.9 [facility] NRBC% auto 0.0 % [facility] NRBC Absolute 0.000 0.000 - 0.000 x10(3)/mc L [facility] Blood specimen (specimen) 05/31/2017 12:19 PM EST 05/31/2017 12:26 PM EST Narrative Resulting Agency Comment Spec In Lab Brianna Collado MD HEMATOLOGY ORDERAB LES [facility] [place] [address] * Factor 5 Mut (05/31/2017 12:19 PM EST) Factor V Leiden Negative [facility] Factor V Leiden Interp RESULT: NEGATIVE FOR [...] Factor V gene (F5) variant, c.1601G>A (NM_000130.4) [[id number] (NP_000121.2) ([id number]; commonly Factor V Leiden or [id number])], is interrogated using a TaqMan allelic discrimination [...] [employer] ([employer]) Laboratory at [facility]. It has not been cleared or approved by the FDA. The laboratory is regulated under CLIA as qualified to perform high-complexity testing. This test is used for clinical purposes. It should not be regarded as investigational or for research. [facility] Comment: [VERIFIED DATE]06.07.17 Verified By:Davida Harvey, Darryl Tamez Molecular Pathologist (Electronic Signature) Blood specimen (specimen) 05/31/2017 12:19 PM EST 05/31/2017 3:18 PM EST Narrative Resulting Agency Comment Spec In Lab Brianna Collado MD MOLECULAR ORDERABL ES Performing Organization Address [facility] Co de Phone Number [facility] [place] [address] * Lyme IgG & IgM Antibody (05/31/2017 12:19 PM EST) Lyme Antibody Neg Neg [facility] Blood specimen (specimen) 05/31/2017 12:19 PM EST 06/01/2017 8:12 AM EST Narrative Resulting Agency Comment Spec In Lab Brianna Collado MD IMMUNOLOGY ORDERAB LES Performing Organization Address [facility] Phone Number [facility] [place] [address] * Vitamin B12 (05/31/2017 12:19 PM EST) Vitamin B12 413 232 - 1,245 pg/mL [facility] Comment: Please note: Effective 05/31/2017, the reference interval and the lower limit of detection for Vitamin B12 have been updated due to a new reagent formulation. Blood specimen (specimen) 05/31/2017 12:19 PM EST 05/31/2017 12:26 PM EST Narrative Resulting Agency Comment Spec In Lab Brianna Collado MD CHEMISTRY ORDERABL ES Performing Organization Address [facility] Co de Phone Number [facility] [place] [address] * (ABNORMAL) Calcium, Ionized, Serum (05/31/2017 12:19 PM EST) Ionized Calcium 1.14(L) 1.15 - 1.33 mmol/L [facility] Comment: Note: Total bilirubin higher than 20 mg/dL may lead to falsely low ionized calcium. Blood specimen (specimen) 05/31/2017 12:19 PM EST 05/31/2017 12:26 PM EST Narrative Resulting Agency Comment Spec In Lab Brianna Collado MD CHEMISTRY ORDERABL ES Performing Organization Address [facility]/ZIP Co de Phone Number [facility] [place] [address] * T4, free (05/31/2017 12:19 PM EST) Free T4 1.02 0.93 - 1.70 ng/dL [facility] Blood specimen (specimen) 05/31/2017 12:19 PM EST 05/31/2017 12:26 PM EST Narrative Resulting Agency Comment Spec In Lab Brianna Collado MD CHEMISTRY ORDERABL ES Performing Organization Address [facility]/ZIP Co de Phone Number [facility] [place] [address] * TSH (05/31/2017 12:19 PM EST) Thyroid Stimulating Hormone 1.75 0.27 - 4.20 mlU/ML [facility] Blood specimen (specimen) 05/31/2017 12:19 PM EST 05/31/2017 12:26 PM EST Narrative Resulting Agency Comment Spec In Lab Brianna Collado MD CHEMISTRY ORDERABL ES Performing Organization Address City/[facility]/ZIP Co de Phone Number [facility] [place] [address] * (ABNORMAL) Ferritin (05/31/2017 12:19 PM EST) Ferritin 199(H) 15 - 150 ng/mL [facility] Comment: Pediatric reference ranges not verified at [facility], interpret with caution. Reference ranges for females greater than 50 years of age approach values for men, i.e., 30-400 ng/mL. Blood specimen (specimen) 05/31/2017 12:19 PM EST 05/31/2017 12:26 PM EST Narrative Resulting Agency Comment Spec In Lab Brianna Collado MD CHEMISTRY ORDERABL ES [facility] [place] [address] * Extractable Nuclear Antigen (MICHAEL) Ab (05/31/2017 12:19 PM EST) [facility] MICHAEL Ab Test ?Result ?Flag ??Unit ??RefValue Ab to Extractable Nuclear Ag Eval,S ??SS-A/Ro Ab, IgG, S ?<0.2 ?U ? <1.0 (Negative) ??SS-B/La Ab, IgG, S ?<0.2 ?U ? <1.0 (Negative) ??Sm Ab, IgG, S ? <0.2 ?U ? <1.0 (Negative) ??FISHER MUSSEL Ab, IgG, S ?<0.2 ?U ? <1.0 (Negative) ??Scl 70 Ab, IgG, S ? <0.2 ?U ? <1.0 (Negative) ??Joan 1 Ab, IgG, S ? <0.2 ?U ? <1.0 (Negative) ?Test Performed by: ?[facility] ?[address] LABORATORY Blood specimen (specimen) 05/31/2017 12:19 PM EST 05/31/2017 2:21 PM EST Narrative Resulting Agency Comment Spec In Lab Brianna Collado MD LAB SEND OUT ORDER DERICK [facility] [place] [address] * Comprehensive metabolic panel (non-fasting) (05/31/2017 12:19 PM EST) Glucose 114 65 - 199 mg/dL [facility] Comment:Diabetes: >=200 mg/d L plus symptoms Blood Urea Nitrogen 11 8 - 18 mg/dL [facility] Creatinine 0.82 0.70 - 1.20 mg/dL [facility] Sodium 139 135 - 145 mmol/L [facility] Potassium 3.7 3.5 - 5.0 mmol/L [facility] Comment: Please note: ??Patients with WBC >100,000 may have falsely elevated Potassium levels. ??For accurate Potassium quantification in these patients send serum separator tube (gold top) for subsequent determinations. ??Contact the Clinical Chemistry Laboratory if there are any questions. Chloride 100 98 - 107 mmol/L [facility] Carbon Dioxide 25 22 - 31 mmol/L [facility] Anion Gap 14 5 - 15 mmol/L [facility] Calcium 8.8 8.5 - 10.5 mg/dL [facility] Protein, Total 7.4 6.1 - 8.0 gm/dL [facility] Albumin 3.9 3.2 - 5.2 gm/dL [facility] Aspartate Aminotransferase 18 0 - 30 unit/L [facility] Alanine Aminotransferase 28 0 - 30 unit/L [facility] Alkaline Phosphatase 69 40 - 104 unit/L [facility] Bilirubin, Total 0.3 0.2 - 1.3 mg/dL [facility] Est Glomerular Filtration Rate >60 >=60 [facility] Comment: The reported eGFR should be multiplied by 1.2 for patients. The MDRD is not an appropriate measure of renal function for patients with body mass extremes or in patients with acute kidney failure. http://[employer].Manifact/DHnkdep http://[employer]/DHMCnkf Blood specimen (specimen) 05/31/2017 12:19 PM EST 05/31/2017 12:26 PM EST Narrative Resulting Agency Comment Spec In Lab Brianna Collado MD CHEMISTRY ORDERABL ES [facility] [place] [address] * Ceruloplasmin (05/31/2017 12:19 PM EST) Ceruloplasmin 31.5 16.0 - 45.0 mg/dL [facility] Blood specimen (specimen) 05/31/2017 12:19 PM EST 05/31/2017 12:26 PM EST Narrative Resulting Agency Comment Spec In Lab Brianna Collado MD CHEMISTRY ORDERABL ES [facility] [place] [address] * Cardiolipin Antibody Screen (05/31/2017 12:19 PM EST) Cardiolipin Antibody IgG <23 <=22 GPL unit(s) [facility] Comment: Ranges ? GPL ------- ? ------ Normal ?<23 Low Positive ? 23-35 Moderate Positive ?36-50 High Positive ? >50 Cardiolipin Antibody IgM <11 <=10 MPL unit(s) [facility] Comment: Ranges ?MPL ----- ?----- Normal ?<11 Low Positive ? 11-20 Moderate Positive ?21-30 High Positive ? >30 Blood specimen (specimen) 05/31/2017 12:19 PM EST 06/01/2017 8:00 AM EST Narrative Resulting Agency Comment Spec In Lab Brianna Collado MD IMMUNOLOGY ORDERAB LES Performing Organization Address City/[facility]/ZIP Co de Phone Number [facility] [place] [address] * RAEANN (05/31/2017 12:19 PM EST) RAEANN Neg Neg [facility] Blood specimen (specimen) 05/31/2017 12:19 PM EST 05/31/2017 3:20 PM EST Narrative Resulting Agency Comment Spec In Lab Brianna Collado MD LAB SEND OUT ORDER DERICK Performing Organization Address [facility]/ZIP Co de Phone Number [facility] [place] [address] documented in this encounter Visit Diagnoses Diagnosis Myoclonus- Primary Abnormal MRI Other nonspecific (abnormal) findings on radiological and other examinations of body structure Myoclonus Abnormal MRI Other nonspecific (abnormal) findings on radiological and other examinations of body structure Myoclonus documented in this encounter Care Teams Dye Jig Operator Relationship Specialty Start Date End Date Nadine Mcduffie MD [address] [place] [address] PCP - General Family Medicine 03/27/17 documented as of this encounter
--- OUTSIDE RECORDS SUMMARY | 2024-05-22 19:44 | XMS_ITS | Encounter Summary ---
Author Organization Formerly [facility] [place] [address] Care Team Providers Care Peanut Blancher Name Role Phone Fausto De León MD Primary Care Provider [phone] Encounter Details Date Type Department Care Team ([facility] Contact Info) Description 05/25/2011 Refill Family Medicine [facility] 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 Dania Schaffer documented in this encounter Plan of Treatment Not on file documented as of this encounter Visit Diagnoses Not on filedocumented in this encounter Care Teams Peanut Blancher Relationship Specialty Start Date End Date Fausto De León MD [facility] [place] [address] PCP - General 02/10/11 08/02/11 documented as of this encounter
--- OUTSIDE RECORDS SUMMARY | 2024-05-22 19:44 | XMS_ITS | Encounter Summary ---
Author Organization Formerly [facility] [place] [address] Care Team Providers Care Meat Inspector Name Role Phone Chris Hackett DO Primary Care Provider [phone] Encounter Details Date Type Department Care Team (Late st Contact Info) Description 08/03/2011 Refill Family [facility] [place] [address] Sara Martell APRN [facility] [place] [address] Social History Tobacco Use Types Packs/Day Years [...] encounter Miscellaneous Notes * Telephone Encounter - Rubina Infante LPN - 08/03/2011 1:[address] Eh jean to call in prescription for Xanax 0.25 mg tab take 1 tab daily as needed dispense #10 with no refills. Once pt returns from business travel he would like pt to schedule an office visit to meet new PCP. Pt notified and agrees with plan prescription called into [facility] [place]. * Telephone Encounter - Rubina Infante LPN - 08/03/2011 1:37 PM EST Spoke with pt advised her that we would need to change her PCP as Dr. De León is no longer here. Gave her options of PCP's that are available and she agrees with Dr. Stauffer. Asked pt who previously prescribed medication as it has not been prescribed by our office.She states she was prescribed Xanax byDr. Castano in [facility] for her anxiety and also for as needed for flying. She states he wouldprescribe #10 that usually last 3-6 months and that it is 0.25 mg tabs. Pt states if she needs appointment to be seen she would understand as our office has not prescribed. She is traveling for Business on Monday08/07/11 and would like prescription for this trip. Advised pt would speak with Dr. Stauffer and call her back. She agrees with plan. * Telephone Encounter - Chiquis Marshall - 08/03/2011 12:44 PM EST Pt called back during lunch. She asked that you try calling her again at the same number and ask for her. * Telephone Encounter - Rubina Infante LPN - 08/03/2011 11:18 AM EST Called medical secretary answered states will transfer you to her voicemail as she is out ofoffice at this time. Message left on voicemail to return call to office. * Telephone Encounter - Dania Jaquez - 08/03/2011 11:06 AM EST Patient uses this when flying. She is flying out on [place] 2/5/12. Requesting a refill documented in this encounter Plan of Treatment Not on file documented as of this encounter Visit Diagnoses Not on filedocumented in this encounter Care Teams Meat Inspector Relationship Specialty Start Date End Date Chris Hackett DO [facility] [address] [facility] [place] [address] PCP - General 08/03/11 05/15/12 documented as of this encounter
--- OUTSIDE RECORDS SUMMARY | 2024-05-22 19:44 | XMS_ITS | Encounter Summary ---
Author Organization [facility]ly [facility] [place] [address] Care Team Providers Care Advertising Copy Writer Name Role Phone Chris Hackett DO Primary Care Provider [phone] Reason for Visit * Reason Comments Exposure to STD Encounter Details Date Type Department Care Team ([facility] Contact Info) Description 01/03/2012 4:20 PM EDT Office Visit Family Medicine at [facility] [place] [address] Piedad Delgado [facility] [place] [address] Exposure to STD (Primary Dx) Discharge Disposition: Home Social History [...] Sign Reading Time Taken Comments Blood Pressure 135/79 01/03/2012 4:18 PM EDT Pulse 98 01/03/2012 4:18 PM EDT Temperature - - Respiratory Rate 18 01/03/2012 4:18 PM EDT Oxygen Saturation - - Inhaled Oxygen Concentration - - Weight 95.3 kg (210 lb) 01/03/2012 4:18 PM EDT Height - - Body Mass Index 34.95 10/26/2011 9:17 AM EDT documented in this encounter Progress Notes * Piedad Delgado APRN - 01/03/2012 4:35 PM EDT HPI: Pt is a 31 year old female here with concerns for an exposure to chlamydia from her past boyfriend. He recently called to tell her he had an exposure. She reports she generally feels well without vaginal pain or discharge, no abdominal pain, no fevers. She is sexually active with one partner and is open that she is coming in for testing. Her current partner is asymptomatic. She is concerned t hat he won't be able to be treated as he does not have insurance or a primary provider. ROS: Per HPI Physical Exam: Gen: alert, oriented, no acute distress : nl external genitalia, neg GBUS, no lesions, no rashes; vaginal mucosa pink and rugated, no abnormal discharge, cervix pink and smooth. Bimanual: Uterus small mobile nontender, no adnexal tenderness, masses, no CMT. Extremities: no C/C/E x 4 Psychiatric: mood reactive, affect appropriate. Judgement and insight intact. Assessment: Exposure to STD Plan: Gen probe today rx azithromycin 1g PO x 1 to hold 2 adnl tabs for pt's partner, if needed, she agrees to check on drug allergies, he is generally healthy without medical conditions and not taking any medications. Will f/u with test results. Pt understands reporting procedure if positive - will f/u with labs otherwise PRN. documented in this encounter Plan of Treatment Not on file documented as of this encounter Procedures Procedure Name Priority Date/Time Associated Diagnosis Comments GC/CHLAM Routine 01/03/2012 6:18 PM EDT Exposure to STD GC/CHLAMYDIA Routine 01/03/2012 4:51 PM EDT Exposure to STD documented in this encounter Results * GC/CHLAM (01/03/2012 6:18 PM EDT) Pathologist [facility] Gene Amp Negative Negative [facility] Comment: The only FDA approved specimen types [...] CERNER MILLENNIUM Specimen of unknown material (specimen) 01/03/2012 6:18 PM EDT 01/03/2012 6:18 PM EDT Narrative Resulting Agency Comment Spec In Lab Chris Hackett DO MICROBIOLOGY - GENER AL ORDERABLES JOSE MANUEL IGLESIAS documented in this encounter Visit Diagnoses Diagnosis Exposure to STD- Primary Contact with or exposure to other communicable diseases documented in this encounter Care Teams Advertising Copy Writer Relationship Specialty Start Date End Date Chris Hackett DO [facility] [address] [facility] [place] [address] PCP - General 08/03/11 05/15/12 documented as of this encounter
--- OUTSIDE RECORDS SUMMARY | 2024-05-22 19:44 | XMS_ITS | Encounter Summary ---
Author Organization Formerly [facility] Address [facility] [place] [address] Care Team Providers Care Anvilsmith Name Role Phone Shawn Diego MD, Maryellen Primary Care Provider Reason for Visit * Reason Onset Date Comments Medication Refill 07/27/2012 Encounter Details Date Type Department Care Team (Late st Contact Info) Description 07/27/2012 Refill Internal Medicine at [facility] [address] [place] [address] [place] [address] Social History Tobacco Use Types Packs/Day Years [...] * Telephone Encounter - Dru Rubi - 07/27/2012 1:42 PM EST Patient will be flying on 08/01 and would like a refill on her xanax (only needs about 10 pills please) Thanks Dru Escobar documented in this encounter Plan of Treatment Not on file documented as of this encounter Visit Diagnoses Not on filedocumented in this encounter Care Teams Anvilsmith Relationship Specialty Start Date End Date Maryellen Escobar MD [facility] DR MIL[address] MADDEN [facility] [place] [address] PCP - General 05/16/12 10/06/13 documented as of this encounter
--- OUTSIDE RECORDS SUMMARY | 2024-05-22 19:44 | XMS_ITS | Encounter Summary ---
Author Organization [facility] [place] [address] Care Team Providers Care Respiratory Care Faculty Name Role Phone Chris Hackett DO Primary Care Provider [phone] Encounter Details Date Type Department Care Team (Late Contact Info) Description 04/02/2012 Telephone [facility] [place] [address] Piedad Delgado APRN [facility] [place] [address] Social History Tobacco Use Types Packs/Day Years [...] Telephone Encounter - Fara Sánchez LPN - 04/02/2012 3:58 PM EDT Left message on secure [employer] that script was ordered and to call back if not improved in a weekor if gets worse. * Telephone Encounter - Piedad Delgado APRN - 04/02/2012 3:55 PM EDT Called Cipro 500mg PO BID x 7 days, pt to f/u if not improving or if continues to worsen. * Telephone Encounter - Fara Sánchez LPN - 04/02/2012 3:51 PM EDT Pt called back and is in a lot of pain and left work early due to developing a fever. * Telephone Encounter - Fara Sánchez LPN - 04/02/2012 1:48 PM EDT Spoke with pt and she is continuing to have some burning with urination and abdominal pain. Did inform pt that her culture showed some bacteria growth but not a true infection. Pt asked that if an antibiotic is called in she has the least problems with cipro. * Telephone Encounter - Piedad Delgado APRN - 04/02/2012 12:40 PM EDT Fara - please call pt Her urine did culture some bacteria though not quite enough to call it a true infection - If she has any urinary symptoms at all I would like to treat, otherwise just have her f/u if any symptoms. Let me know either way. Thank you AC documented in this encounter Plan of Treatment Not on file documented as of this encounter Visit Diagnoses Not on filedocumented in this encounter Care Teams Respiratory Care Faculty Relationship Specialty Start Date End Date Chris Hackett DO [facility] [address] [facility] [place] [address] PCP - General 08/03/11 05/15/12 documented as of this encounter
--- OUTSIDE RECORDS SUMMARY | 2024-05-22 19:44 | XMS_ITS | Encounter Summary ---
Author Organization [facility] Address [facility] [place] [address] Care Team Providers Care Home Visitor Name Role Phone Nadine Mcduffie MD Primary Care Provider [phone] Reason for Visit * Reason Comments Medication Refill Encounter Details Date Type Department Care Team (Late Contact Info) Description 12/02/2013 Refill Internal Medicine at [place] [address] [place] [address] [place] [facility] [place] [address] Social History Tobacco Use Types Packs/Day Years [...] encounter Miscellaneous Notes * Telephone Encounter - Talya Siddiqi MD - 12/05/2013 3:15 PM EDT Needs appt with me. Due for Pap this year as no HPV done at last PAP in 2010. Please schedule preventive visit documented in this encounter Plan of Treatment Not on file documented as of this encounter Visit Diagnoses Not on filedocumented in this encounter Care Teams Home Visitor Relationship Specialty Start Date End Date Nadine Mcduffie MD [address] [place] [address] PCP - General Family Medicine 03/27/17 documented as of this encounter
--- OUTSIDE RECORDS SUMMARY | 2024-05-22 19:44 | XMS_ITS | Encounter Summary ---
Author Organization Formerly [facility] [place] [address] Care Team Providers Care Lead Tank Mechanic Name Role Phone Shawn Diego MD, Maryellen Primary Care Provider Reason for Visit * Reason Comments Back Pain Encounter Details Date Type Department Care Team ([facility] Contact Info) Description 05/20/2013 7:16 AM EST - 05/20/2013 9:18 AM EST [place] [address] Rajendra Vaughan MD [facility] [place] [address] Back pain Discharge Disposition: Home Social History Tobacco Use [...] Sign Reading Time Taken Comments Blood Pressure 141/92 05/20/2013 7:20 AM EST Pulse 87 05/20/2013 7:20 AM EST Temperature 36.9 ??C (98.4 ??F) 05/20/2013 7:20 AM ES T Respiratory Rate 16 05/20/2013 7:20 AM EST Oxygen Saturation 99% 05/20/2013 7:20 AM EST Inhaled Oxygen Concentration - - Weight 92.5 kg (204 lb) 05/20/2013 7:45 AM EST Height 165.1 cm (5' 5) 05/20/2013 7:45 AM EST Body Mass Index 33.95 05/20/2013 7:45 AM EST documented in this encounter Discharge Instructions * Discharge Instructions* Familia Foster MD - 05/20/2013 8:40 AM EST Return to the Emergency Department if you experience fever, chills, weakness, numbness, if your pain is not controlled, or if you have any new symptoms or concerns. If your back pain is not improving you may need x-rays or an MRI. It is important that you follow up with your primary care doctor for a recheck within the next week. Your doctor may prescribe medication to help control your symptoms. If you are prescribed Percocet or Vicodin it is important to follow certain instructions: do no drink alcohol, drive a car or operate machinery with this medication - it will make you sleepy. These medications also contain acetaminophen (abbreviated APAP on the medication bottle) which is the main ingredient in Tylenol - do not take extra Tylenol with this medication as it is dangerous for your liver. Flexeril, another common medication for back pain, can also make you sleepy. You should not drive or operated machinery with this medication either. documented in this encounter Medications at Time of Discharge Medication Sig Dispensed Refills Start Date End Date OXYcodone (ROXICODONE) 5 mg immediate release tablet Take 1 tablet by mouth every 4 hours as needed for Pain. 10 tablet 0 05/20/2013 06/28/2013 levothyroxine (SYNTHROID) 50 mcg tabletIndications:Hypot hyroidism Take 1 tablet by mouth daily. 90 tablet 3 11/05/2012 06/14/2017 venlafaxine (EFFEXOR-XR) 150 mg 24 hr capsuleIndications:Anxi ety Take 1 capsule by mouth daily. 90 capsule 4 11/05/2012 10/07/2013 clonAZEpam (KLONOPIN) 0.5 mg tabletIndications:Anxie ty Take 1 tablet by mouth 2 times daily as needed for Anxiety. 20 tablet 0 11/05/2012 06/28/2013 venlafaxine (EFFEXOR XR) 75 mg 24 hr capsuleIndications:Anxi ety Take 1 capsule by mouth daily. 90 capsule 3 11/05/2012 06/28/2013 ALPRAZolam (XANAX) 0.25 mg tablet Take 1 tablet by mouth daily as needed. 10 tablet 0 07/27/2012 06/28/2013 documented as of this encounter ED Notes * Rika Anna RN - 05/20/2013 9:17 AM EST Given note for out of work until 05-23-13 * Rika Anna RN - 05/20/2013 9:16 AM EST Pt d/c home w/ rx for oxycodone, explicit instructions for use of tylenol and motrin po. D/c ambualtory w/ steady gait. * Rajendra Vaughan MD - 05/20/2013 7:50 AM EST Chief Complaint Patient presents with ??? Back Pain HPI Comments: 32-year-old female who presents with lower back pain. She states that she was playingwith her nephew over the weekend, lifting him several times. She subsequently developed back pain across both sides of her lower back. She states that her pain was well-controlled over the weekend with ibuprofen. This morning after she drove into work the pain was much worse. She was able to ambulate, but this makes the pain a 10 out of 10. The pain is a dull 2/10 at rest. There is no radiation down either leg. She denies any numbness or tingling. She denies any urinary retention or incontinence. She denies any fevers chills or IV drug use. The history is provided by the patient. Allergies Allergen Reactions ??? Hydrocodone-Acetaminophen mood lability ??? Sulfa (Sulfonamide Antibiotics) edema ??? Penicillins Rash Review of Systems Constitutional: Negative for fever. HENT: Negative for neck pain. Eyes: Negative for pain. Respiratory: Negative for cough and shortness of breath. Cardiovascular: Negative for chest pain. Gastrointestinal: Negative for abdominal pain. Genitourinary: Negative for dysuria, urgency and difficulty urinating. Musculoskeletal: Negative for back pain. Skin: Negative for pallor. Neurological: Negative for headaches. Physical Exam Nursing note and vitals reviewed. Constitutional: She appears well-developed and well-nourished. No distress. HENT: Head: Normocephalic and atraumatic. Right Ear: External ear normal. Left Ear: External ear normal. Nose: Nose normal. Mouth/Throat: Oropharynx is clear and moist. No oropharyngeal exudate. Eyes: Conjunctivae normal and EOM are normal. Pupils are equal, round, and reactive to light. No scleral icterus. Neck: Normal range of motion. Neck supple. Cardiovascular: Normal rate, regular rhythm, normal heart sounds and intact distal pulses. Exam reveals no gallop and no friction rub. No murmur heard. Pulmonary/Chest: Effort normal and breath sounds normal. No respiratory distress. She has no wheezes. Abdominal: Soft. Bowel sounds are normal. She exhibits no distension. There is no tenderness. Musculoskeletal: Normal range of motion. She exhibits no edema and no tenderness. Tenderness to palpation bilaterally lower back. No step-off or deformity. Neurological: She is alert. She has normal strength. No sensory deficit. GCS eye subscore is 4. GCSverbal subscore is 5. GCS motor subscore is 6. She displays no Babinski's sign on the right side. She displays no Babinski's sign on the left side. Reflex Scores: Patellar reflexes are 2+ on the right side and 2+ on the left side. Achilles reflexes are 2+ on the left side. 5 out of 5 strength in all muscle groups lower extremities Skin: Skin is warm and dry. No rash noted. She is not diaphoretic. No erythema. Procedures MDM 32-year-old female complaining of low back pain. Patient is afebrile, with a history of IV drug use, without saddle anesthesia or extremity weakness and without urinary retention or incontinence. Patient is ambulating without any difficulty and her pain is well-controlled. I feel that this is mechanical in etiology and likely related to lifting her nephew over the weekend. I have provided strict return precautions the patient will follow up with her PCP. Nothing to suggest cauda equina, decompression of the spinal cord, fracture, ligamentous injury, infectious process. ED Course: Patient seen and evaluated in the emergency department at 0730. UA obtained and unremarkable. UPT negative. Patient was ambulating without difficulty and her pain was well-controlled. I discussed return precautions with the patient she was comfortable following up with her PCP if her symptoms continue. She was discharged in good condition. Patient care discussed with attending physician. Familia Foster MD PGY-2 Familia Foster MD Resident 05/20/13 7051 I cared for this patient with resident. I agree with the history and physical as documented. I interviewed the patient myself to verify almeida portions of the history. I performed the almeida elements of the physical exam myself. I have discussed the salient points of clinical management with the resident. I considered the emergency causes of back pain for this patient. she denies any numbness to the saddle or perineum, weakness - although there are limits 2/2 pain, incontinence of bladder or bowels, dysuria, hematuria, hematochezia, fever, or IVDU. Even though there is no evidence of emergency back pain at the time of visit. I have carefully explained all of these symptoms to the patient. I have asked her to return to this or the nearest emergency room immediately if she develops any of these symptoms. Rajendra Vaughan MD 05/21/13 4405 documented in this encounter Miscellaneous Notes * Discharge Summary - Provider, Scanning - 05/21/2013 8:11 AM EST * Miscellaneous - Provider, Scanning - 05/20/2013 8:45 PM EST * ED Triage - Rika Anna RN - 05/20/2013 7:25 AM EST Pt reports that she began to have lower lumbarsacral back pain at work on Monday, did not improve. Went to work today and the pain increased. Currently states pain is 8/10 w/ movement, 5/10 when lying down, sharp, constant. A&Ox3. Skin w/p/d. NAD. Denies trauma or fall. Went to work today andunable to continue due to pain, OTC meds unrelieved of pain. documented in this encounter Plan of Treatment Not on file documented as of this encounter Procedures Procedure Name Priority Date/Time Associated Diagnosis Comments POCT URINE STAT 05/20/2013 8:05 AM EST POCT URINE DIPSTICK STAT 05/20/2013 8 :05 AM EST documented in this encounter Results * POCT urine (05/20/2013 8:05 AM EST) POC Urine HCG Negative Negative - Negative POC Control Internal Controls Acceptable Rajendra Vaughan MD POINT OF CARE TEST O K[place] * POCT urine dipstick (05/20/2013 8:05 AM EST) POC Sp [place] 1.020 1.002 - 1.030 POC pH, UA 5 5.0 - 8.5 POC Leuk, UA 1 Negative - Negative POC Nitrite, UA neg Negative - Negative POC Protein, UA neg Negative - Negative mg/dL POC Glucose, UA neg Normal - Normal mg/dL POC Ketone, UA neg Negative - Negative POC Urobil, UA neg 0.2 - 1.0 mg/dL POC Bili, UA neg Negative - Negative POC Blood, UA neg Negative - Negative mayonr/uL Rajendra Vaughan MD POINT OF CARE TEST O RDERAGAMALIEL documented in this encounter Visit Diagnoses Diagnosis Back pain Backache, unspecified documented in this encounter Administered Medications Inactive Administered Medications - up to 3 most recent administrations Medication Order MAR Action Action Date Dose Rate Site acetaminophen (TYLENOL) tablet 975 mg 975 mg, Oral, ONCE, 1 dose, On 05/20/13 at 0815, Maximum dose of acetaminophen is 4000 mg from all sources in 24 hours., STAT Given 05/20/2013 8:15 AM EST 975 mg documented in this encounter Active and Recently Administered Medications Times are shown in EST. Scheduled Medication Order 05/18/2013 05/19/2013 05/20/2013 acetaminophen (TYLENOL) tablet 975 mg (COMPLETED) 975 mg, Oral, ONCE, 1 dose, On 05/20/13 at 0815, Maximum dose of acetaminophen is 4000 mg from all sources in 24 hours., STAT 0815 (Given - Provid er: Rika Anna RN) documented in this encounter Care Teams Lead Tank Mechanic Relationship Specialty Start Date End Date Maryellen Escobar MD [facility] [place] [address] PCP - General 05/16/12 10/06/13 documented as of this encounter
--- OUTSIDE RECORDS SUMMARY | 2024-05-22 19:44 | XMS_ITS | Encounter Summary ---
[place] [address] Care Team Providers Care Billing And Accounting Staff Assistant Name Role Phone Nadine Mcduffie MD Primary Care Provider [phone] Encounter Details Date Type Department Care Team ([facility] Contact Info) Description 05/11/2017 Telephone Obstetrics [place] [address] Anne Hardin Social History Tobacco Use Types Packs/Day Years [...] encounter Miscellaneous Notes * Telephone Encounter - Anne Hardin - 05/15/2017 1:30 PM EST 05/15/17 Aria returned my call to schedule surgery. She is scheduled for 06/[address] Jeff camacho preop appointment scheduled 06/20 with an Ultrasound. Surgical Packet sent 05/15/17 to patient. Pt to call if any questions * Telephone Encounter - Anne Hardin - 05/11/2017 2:44 PM EST 05/11/17 Left patient a message to call to schedule surgery. documented in this encounter Plan of Treatment Not on file documented as of this encounter Visit Diagnoses Not on filedocumented in this encounter Care Teams Billing And Accounting Staff Assistant Relationship Specialty Start Date End Date Nadine Mcduffie MD [address] [place] [address] PCP - General Family Medicine 03/27/17 documented as of this encounter
--- OUTSIDE RECORDS SUMMARY | 2024-05-22 19:44 | XMS_ITS | Encounter Summary ---
Author Organization [facility], Located [facility] [place] [address] Care Team Providers Care First Assistant Name Role Phone Shawn Diego MD, Maryellen Primary Care Provider Reason for Visit * Reason Comments Anxiety anxiety is debilita ting, muscle tension pain, panic attacks at work, high-stress job, sleeping up too much Encounter Details Date Type Department Care Team (Late st Contact Info) Description 11/05/2012 10:45 AM EDT Follow-Up Internal Medicine at [facility] [address] [place] [address] Go Paris PA [facility] [place] [address] Anxiety (Primary Dx); Depression; Hypothyroidism Discharge Disposition: Home Social History Tobacco Use Types Packs/Day Years Used Date Smoking Tobacco: Every Day Cigarettes 1 15 Started: 04/11/1994; Last attempted to quit: 04/11/2009 Smokeless Tobacco: Never Tobacco Cessation:Ready to Q uit: Yes Comments:wants to quit, has tried the patch Alcohol Use Standard Drinks/Week Comments Yes 0.8 (1 standard drink = 0.6 oz p ure alcohol) Sex and Gender Information Value Date Recorded Sex Assigned at Not on file Gender Identity Not on file Sexual Orientation Not on file documented as of this encounter Last Filed Vital Signs Vital Sign Reading Time Taken Comments Blood Pressure 126/81 11/05/2012 10:52 AM EDT ri ght arm Pulse 96 11/05/2012 10:52 AM EDT Temperature 37 ??C (98.6 ??F) 11/05/2012 10:52 AM EDT Respiratory Rate 10 11/05/2012 10:52 AM EDT Oxygen Saturation 96% 11/05/2012 10:52 AM EDT Inhaled Oxygen Concentration - - Weight 99.3 kg (219 lb) 11/05/2012 10:52 AM EDT with shoes Height - - Body Mass Index 36.44 03/29/2012 10:58 AM EDT documented in this encounter Progress Notes * Go Paris PA - 11/05/2012 10:59 AM EDT Subjective: Patient ID: Aria Figueroa is a 31 y.o. female. HPI She has severe anxiety and stress which is resulting in panic attacks at work. She feels like shehas a lot of muscle tension which is leading to generalized pain. She says a lot of things have changed at work which makes her worry about her job. She feels like she is a constant worrier. In the past she's done better than currently. Things have worsened over the last 2 weeks. She does have some feelings of depression and loss of interest. She is sleeping more than normal. She denies classic panic attack sx such as hyperventilation, chest pain, feelings of dread. She is currently on Effexor 150 mg daily. She has been on this over 1 year. She also has hypothyroidism but hasn't been taking her synthroid for about 1 year. She has experienced weight gain and increased fatigue since stopping the med. Review of Systems Objective: Physical Exam [vitalsreviewed. Constitutional: She appears well-developed and well-nourished. No distress. Psychiatric: Pt does appear anxious and did become emotional during our conversation. PHQ- 18, GINO- 17. Assessment and Plan: Aria was seen today for anxiety. Diagnoses and associated orders for this visit: Anxiety and Depression - venlafaxine (EFFEXOR-XR) 150 mg 24 hr capsule; Take 1 capsule by mouth daily. - clonAZEpam (KLONOPIN) 0.5 mg tablet; Take 1 tablet by mouth 2 times daily as needed for Anxiety. - venlafaxine (EFFEXOR XR) 75 mg 24 hr capsule; Take 1 capsule by mouth daily. I will increase her effexor to 225 mg with some prn klonopin to help in the meantime. She was advised in behavioral therapy for stress management as well. I wonder how much of her sx could be due to not being on her synthroid for a long time as well. Hypothyroidism - levothyroxine (SYNTHROID) 50 mcg tablet; Take 1 tablet by mouth daily. She was advised to start taking this again in the am 30 min before eating. She should f/u in 6 weeks for repeat TSH. documented in this encounter Plan of Treatment Not on file documented as of this encounter Visit Diagnoses Diagnosis Anxiety- Primary Anxiety state, unspecified Depression Depressive disorder, not elsewhere classified Hypothyroidism Unspecified hypothyroidism documented in this encounter Care Teams First Assistant Relationship Specialty Start Date End Date Maryellen Escobar MD [facility] [address] [facility] [place] [address] PCP - General 05/16/12 10/06/13 documented as of this encounter
--- OUTSIDE RECORDS SUMMARY | 2024-05-22 19:44 | XMS_ITS | Encounter Summary ---
Author Organization [facility] [place] [address] Care Team Providers Care Patient Account Analyst Name Role Phone Talya Siddiqi MD Primary Care Provider Unav ailable Reason for Visit * Reason Onset Date Comments Triage 04/06/2015 requesting an an tibiotic Encounter Details Date Type Department Care Team ([facility] Contact Info) Description 04/06/2015 Telephone Family Medicine at [facility] [address] [place] [address] Sandro Palomo Triage (requesting an antibiotic) Social History Tobacco Use Types Packs/Day Years [...] encounter Miscellaneous Notes * Telephone Encounter - Silvia Valdivia LPN - 04/06/2015 10:43 AM EDT Expressed sincere apology for the unconvinced I explained our MD are unable to prescribe medicationover the phone with assessing the patient. If there is a walk in this would be a better choice thatthe ER. Patient states there are no walk in clinic and she would go to the ER. Stated and understanding and was agreeable . * Telephone Encounter - Sandro Palomo - 04/06/2015 10:20 AM EDT Message: Patient called to report likely strep infection. Patient has had URI symptoms for several days and now presents with white patches in throat. The patient is requesting an antibiotic prescription as she will be 1.5 hours away today. If a prescription is not an option, she will go to the local ER. The patient requests a phone call at your earliest convenience. Caller and relationship (if other than patient-full name): self Best time to call back: anytime Ok to leave a message: [ yes] Ok to send [facility] message: [no] documented in this encounter Plan of Treatment Not on file documented as of this encounter Visit Diagnoses Not on filedocumented in this encounter Care Teams Patient Account Analyst Relationship Specialty Start Date End Date Talya Siddiqi MD PCP - General 10/07/13 05/26/15 documented as of this encounter
--- OUTSIDE RECORDS SUMMARY | 2024-05-22 19:44 | XMS_ITS | Encounter Summary ---
Author Organization [facility] [place] [address] Care Team Providers Care Concrete Stone Fabricator Name Role Phone Chris Hackett DO Primary Care Provider [phone] Reason for Visit * Reason Comments Contraception Encounter Details Date Type Department Care Team ([facility] Contact Info) Description 04/16/2012 11:00 AM EDT Office Visit Family Medicine at [facility] [place] [address] Ju Rodriguez MD [facility] [place] [address] Contraception (Primary Dx); Health care maintenance Discharge Disposition: Home Social History Tobacco Use [...] Sign Reading Time Taken Comments Blood Pressure 126/76 04/16/2012 11:14 AM EDT Pulse 94 04/16/2012 11:14 AM EDT Temperature 36.9 ??C (98.4 ??F) 04/16/2012 11:14 AM E DT Respiratory Rate 18 04/16/2012 11:14 AM EDT Oxygen Saturation 100% 04/16/2012 11:14 AM EDT Inhaled Oxygen Concentration - - Weight - - Height - - Body Mass Index - - documented in this encounter Progress Notes * Ju Rodriguez MD - 04/16/2012 11:41 AM EDT Procedure Note: IUD Insertion Patient has had a previous discussion of contraception options with her PCP, and a Paragard IUD waschosen. She presents for insertion. Following a brief verbal description of the procedure, verbal consent was obtained from the patient. A time-out was conducted just before the start of the procedure to verify the correct patient and procedure, procedure location, and all relevant critical information. Bimanual exam was done to confirm uterine position. A speculum was placed in the vagina without difficulty visualizing the cervix. A single-tooth tenaculum was placed on the anterior lip of the cervix. The uterus sounded to 7cm. The IUD was inserted without complications and strings were trimmed to 3-4 cm. The patient tolerated the procedure well with minimal bleeding. She will call for appt after her next menses if she is uncomfortable with checking for the strings herself, and will call sooner with other concerns such as bleeding or discharge. documented in this encounter Plan of Treatment Not on file documented as of this encounter Visit Diagnoses Diagnosis Contraception- Primary Unspecified contraceptive management Health care maintenance Unspecified general medical examination documented in this encounter Administered Medications Inactive Administered Medications - up to 3 most recent administrations Medication Order MAR Action Action Date Dose Rate Site intrauterine device (PARAGARD) IUD 1 Device 1 Device, Intrauterine, ONCE, 1 dose, On 04/16/12 at 1200, Routine Given 04/16/2012 11:41 AM EDT 1 Device documented in this encounter Care Teams Concrete Stone Fabricator Relationship Specialty Start Date End Date Chris Hackett DO [facility] [address] [facility] [place] [address] PCP - General 08/03/11 05/15/12 documented as of this encounter
--- OUTSIDE RECORDS SUMMARY | 2024-05-22 19:44 | XMS_ITS | Encounter Summary ---
[place] [address] Care Team Providers Care Event Attendant Name Role Phone Obi Siddiqi MD Primary Care Provider Unav ailable Reason for Visit * Reason Onset Date Comments Triage 02/03/2014 Encounter Details Date Type Department Care Team ([facility] Contact Info) Description 02/03/2014 Telephone Internal Medicine at [facility] [address] [place] [phone] Jenny Goode Triage Social History Tobacco Use Types Packs/Day [...] encounter Miscellaneous Notes * Addendum Note - Obi Siddiqi MD - 02/08/2014 7:04 AM EDTAddended by: OBI SIDDIQI on: 02/08/2014 07:04 AM Modules accepted: Orders * Addendum Note - Braulio Connolly RN - 02/05/2014 8:53 AM EDTAddended by: BRAULIO CONNOLLY on: 02/05/2014 08:53 AM Modules accepted: Orders * Telephone Encounter - Braulio Connolly RN - 02/05/2014 8:51 AM EDT Have notified patient of below from OBI SIDDIQI MD Have pended new prescription to OBI SIDDIQI MD based on message below Patient scheduled for 04/25/14 to f/u on her anxiety and effectiveness of medication with Dr. Siddiqi She has no other questions or concerns at this time * Telephone Encounter - Obi Siddiqi MD - 02/05/2014 6:23 AM EDT Patient has been seen only sporadically. I will increase to 150 mg. Not clear from the note that her dose was [address] Alexander in October. She needs an appointment with me or another provider to establish so that she can follow her anxiety symtpoms better and come up with a fpc plan. * Telephone Encounter - Braulio Connolly RN - 02/03/2014 3:45 PM EDT Returned Patient's Call Primary Concern - increased anxiety. Wants to increase her Effexor. History/Onset - was on 225mg of Effexor for almost a year then was reduced to 75mg daily by MD Benjamin in October 2013. Symptoms - increased anxiety, affecting her at work - decreased ability to concentrate. Noticed this for the past month. No other symptoms. Is performing at work well, no distress in her life, notes situational anxiety at work related to her job position, but nothing else is stressful for her she reports. Treatment - Taking 75m Effexor daily as prescribed Plan - Patient states that she does not have insurance and is concerned about the cost of an appointment. Have provided patient with number to patient financial services. She does not want to schedule an appointment with this office at this time, will call patient financial services before setting up appointment. documented in this encounter Plan of Treatment Not on file documented as of this encounter Visit Diagnoses Diagnosis Anxiety- Primary Anxiety state, unspecified documented in this encounter Care Teams Event Attendant Relationship Specialty Start Date End Date Obi Siddiqi MD PCP - General 10/07/13 05/26/15 documented as of this encounter
--- OUTSIDE RECORDS SUMMARY | 2024-05-22 19:44 | XMS_ITS | Encounter Summary ---
Author Organization [facility] [place] [address] Care Team Providers Care Manufacturing Supervisor Name Role Phone Chris Hackett DO Primary Care Provider [phone] Encounter Details Date Type Department Care Team (Late Contact Info) Description 01/05/2012 Telephone Family [facility] [place] [address] Piedad Delgado APRN [facility] [place] [address] Social History Tobacco Use Types Packs/Day Years [...] Miscellaneous Notes * Telephone Encounter - Piedad Delgado APRN - 01/05/2012 1:29 PM EDT G/c are negative - LMTC - AC documented in this encounter Plan of Treatment Not on file documented as of this encounter Visit Diagnoses Not on filedocumented in this encounter Care Teams Manufacturing Supervisor Relationship Specialty Start Date End Date Chris Hackett DO [facility] [address] [facility] [place] [address] PCP - General 08/03/11 05/15/12 documented as of this encounter
--- OUTSIDE RECORDS SUMMARY | 2024-05-22 19:45 | XMS_ITS | Encounter Summary ---
Author Organization [facility] [place] [address] Care Team Providers Care Optometric Technologist Name Role Phone Fausto De León MD Primary Care Provider [phone] Reason for Visit * Reason Onset Date Comments Other 03/02/2011 Pre Press Proofer Note Encounter Details Date Type Department Care Team ([facility] Contact Info) Description 03/02/2011 Telephone Family [facility] [address] Fausto De León MD [facility] [place] [address] Other (Pre Press Proofer Note) Social History Tobacco Use Types Packs/Day Years [...] encounter Miscellaneous Notes * Telephone Encounter - Barbi Berg RN - 05/06/2011 1:05 PM EDT No call back received * Telephone Encounter - Barbi Berg RN - 03/02/2011 3:04 PM EDT Pre Press Proofer Note TC as check in to assess status after med change per request. LM requesting call back. * Telephone Encounter - Barbi Berg RN - 03/02/2011 3:00 PM EDT Message copied by BARBI BERG on MonMar 02, 2011 3:00 PM ------ Message from: HARLAN HAYNES Created: MonFeb 16, 2011 5:25 PM Pt with hx of anx, dep, changed from prozac, to effexor - can you call in 2 weeks to assess? Also given phone numbers of some therapists in area documented in this encounter Plan of Treatment Not on file documented as of this encounter Visit Diagnoses Not on filedocumented in this encounter Care Teams Optometric Technologist Relationship Specialty Start Date End Date Fausto De León MD [facility] [address] PCP - General 02/10/11 08/02/11 documented as of this encounter
--- OUTSIDE RECORDS SUMMARY | 2024-05-22 19:45 | XMS_ITS | Encounter Summary ---
Author Organization [facility] [place] [address] Care Team Providers Care Type Copyist Name Role Phone Addy Bonilla MD Primary Care Provider [phone] Reason for Visit * Reason Comments Establish Care Encounter Details Date Type Department Care Team ([facility] Contact Info) Description 02/16/2011 1:00 PM EDT Office Visit Family Medicine at [facility] [place] [address] [address] [address] [facility] [place] [address] Anxiety; Weight gain Discharge Disposition: Home Social History Tobacco Use [...] Sign Reading Time Taken Comments Blood Pressure 129/72 02/16/2011 1:00 PM EDT Pulse 75 02/16/2011 1:00 PM EDT Temperature 37.1 ??C (98.8 ??F) 02/16/2011 1 :00 PM EDT Respiratory Rate - - Oxygen Saturation 99% 02/16/2011 1:0 0 PM EDT at rest on room air Inhaled Oxygen Concentration - - Weight 91.7 kg (202 lb 3.2 oz) 02/16/2011 1:00 PM EDT Height 162.6 cm (5' 4) 02/16/2011 1:00 PM EDT Body Mass Index 34.71 02/16/2011 1:00 PM EDT documented in this encounter Progress Notes * Sara Martell APRN - 02/16/2011 5:24 PM EDT PCP: ADDY BONILLA MD Seen by: Sara Martell APRN HPI: Aria Figueroa is a 30 y.o. year old female who presents to establish care and to discuss anxiety and weight gain. Recently moved from [place], [place] to [place], [place], living with parents at this time. Works at [employer] in [employer] in [employer]. Planning on moving to area soon. Is , but is currently from her , who is now in [place]. Has been from her for the past 2 years, but does visit him at times in [place]. Her anxiety started around the same time that this separation began. Also has some symptoms of depression. Over the past 2 years, has been treated with a number of different medications: Wellbutrin - caused anxiety Zoloft - caused dizziness, sedation Paxil - took in HS, cannot recall treatment response. Most recently has been taking Prozac and lorazepam. Feels the prozac has been helpful, but is concerned that it is contributing to her weight gain. Reports an approximately 30 lb weight gain over thepast 2 years, despite prudent diet and exercise. Has noticed an increase in appetite since the Prozac was increased from 10 to 20 mg. Denies current or past suicidal ideation. Nonsmoker (currently), no drug use, once a week alcohol use. ROS: Const - + weight gain Resp - neg CV - neg Psych - see HPI Physical Exam GEN: Alert and oriented, in no acute distress NECK: supple, no lymphadenopathy or thyromegaly RESP: Breathing even and nonlabored, Lungs clear to auscultation bilaterally, no wheeze, crackles or rhonchi CV: RRR, normal S1 and S2, no murmurs, gallops or rubs Peripheral Vascular: extremities warm and dry, 2/4 radial pulses bilaterally, brisk capillary refill PSY: tearful at times, mood is dysphoric, affect is constricted and congruent with mood Denies SI PHQ-9 0=not at all, 1=several days, 2=more than half the days, 3=nearly every day Over the last 2 weeks, how often have you been bothered by the following problems? A) Little interest in doing things: 1 B) Feeling down depressed or hopeless: 2 C) Trouble falling asleep, sleeping too much: 2 D) Feeling tired or having little energy: 2 E) Poor appetite or overeatin F) Feeling bad about yourself-or that you are a failure or have let yourself or family down: 2 G) Trouble concentrating on things, such as reading the newspaper or watching TV: 2 H) Moving or speaking so slowly that other people could have noticed. Or the opposite-being so fidgety or restless that you have been moving around a lot more than usual: 1 I) Thoughts that you would be better off or of hurting yourself in some way: 0 Scored: 15 Score: 5-9=mild; 10-14=moderate; 15-19=moderately severe; >=20 severe >= 10 likely major depression Problems above have made it difficult to do work, take care of things at home, or get along with other people: Somewhat difficult GINO-7 0=not at all, 1=several days, 2=more than half the days, 3=nearly every day Over the last 2 weeks, how often have you been bothered by the following problems: 1. Feeling nervous, anxious or on edge: 3 2. Not being able to stop or control worryin 3. Worrying too much about different things:2 4. Trouble relaxin 5. Being so restless that it is hard to sit still: 2 6. Becoming easily annoyed or irritable:2 7. Feeling afraid as if something awful might happen: 2 Total score: 17 Score: 5-9=mild; 10-14=moderate; 15-21=severe. How difficult have these problems made it for you to do your work, take care of things at home, or get along with other people? x Somewhat difficult Assessment and Plan Anxiety Experiencing increased appetite with Prozac, will discontinue Start Effexor XR 37.5 mg once daily, inc to 75 mg after 1 week Discussed potential side effects Pt to establish care without counselor/therapist in area -encouraged to call insurance company to find out which providers are covered, given list of local resources No safety issues at this time F/u phone call in 2 weeks RTC 4 weeks for follow up Weight gain Possibly r/t SE of SSRI Will check TSH, CBC, f/u with results Health Maintenance Recommended f/u for annual PE with Pap, pt to call and schedule Patient understands and agrees with plan documented in this encounter Plan of Treatment Not on file documented as of this encounter Procedures Procedure Name Priority Date/Time Associated Diagnosis Comments SCAN, PERIPHERAL BLOOD Routine 02/16/2011 1:54 PM EDT DIFFERENTIAL, AUTOMATED Routine 02/16/2011 1:54 PM EDT CBC (WITH DIFF) Routine 02/16/2011 1:54 PM EDT Anxiety Weight gain TSH Routine 02/16/2011 1:54 PM EDT Anxiety Weight gain documented in this encounter Results * REFLEX LAB-SCAN, PERIPHERAL BLOOD (02/16/2011 1:54 PM EDT) Pathologist [facility] Plat estimate Normal CERNER MILLENNIUM RBC Morphology Normal CERNE R MILLENNIUM Blood specimen (specimen) 02/16/2011 1:54 PM EDT 02/16/2011 3:12 PM EDT Addy Bonilla MD HEMATOLOGY ORDERABLE S [facility] * (ABNORMAL) REFLEX LAB-A-DIFF (02/16/2011 1:54 PM EDT) Neutrophil % 68.3 34.0 - 71.0 % CERNER MILLENNIUM Neutrophil Absolute 7.20(H) 1.50 - 6.30 x10(3)/mc L CERNER MILLENNIUM Lymph % 21.7 19.0 - 53.0 % CERNER MILLENNIUM Lymphocytes Abs 2.3 1.0 - 3.6 x10(3)/mc L CERNER MILLENNIUM Monocyte % 7.2 4.0 - 13.0 % CERNER MILLENNIUM Monocyte Abs 0.8 0.2 - 1.0 x10(3)/mc L CERNER MILLENNIUM Eos % 1.8 0.0 - 7.0 % CERNER MILLENNIUM Eosinophils Abs 0.2 0.0 - 0.5 x10(3)/mc L CERNER MILLENNIUM Basophil % 0.9 0.0 - 2.0 % CERNER MILLENNIUM Baso Absolute 0.1 0.0 - 0.2 x10(3)/mc L CERNER MILLENNIUM Immature Gran % 0.10 0.00 - 0.66 % CERNER MILLENNIUM Comment: Immature granulocytes(IG's)percentage and absolute count will include metamyelocytes, myelocytes, and promyelocytes. Blood smears from CBCs yielding IG's will be scanned manually for concordance. If this scan disagrees with the automated IG or if promyelocytes are noted, a manual differential will be performed. Immature Gran Absolute 0.01 0.00 - 0.05 x10(3)/mc L CERNER MILLENNIUM Blood specimen (specimen) 02/16/2011 1:54 PM EDT 02/16/2011 3:12 PM EDT Addy Bonilla MD HEMATOLOGY ORDERABLE S [facility] * (ABNORMAL) CBC (with Diff) (02/16/2011 1:54 PM EDT) White Blood Cell 10.5(H) 4.0 - 10.0 x10(3)/mc L CERNER MILLENNIUM Red Blood Cell 4.77 3.93 - 5.22 x10(6)/mc L CERNER MILLENNIUM Hemoglobin 13.9 11.2 - 15.7 gm/dL CERNER MILLENNIUM Hematocrit 40.5 34.0 - 45.0 % CERNER MILLENNIUM Mean Cell Volume 84.9 79.0 - 94.0 fL CERNER MILLENNIUM Mean Cell Hemoglobin 29.1 26.6 - 32.2 pg CERNER MILLENNIUM Mean Cell Hemoglobin Concentration 34.3 32.0 - 36.5 gm/dL CERNER MILLENNIUM Platelet 312 145 - 370 x10(3)/mc L CERNER MILLENNIUM RDW Standard Deviation 38.4 35.0 - 46.0 fL CERNER MILLENNIUM RDW coefficient of variation 12.5 10.9 - 14.4 % CERNER MILLENNIUM Mean Platelet Volume 10.8 9.0 - 12.0 fL CERNER MILLENNIUM Blood specimen (specimen) 02/16/2011 1:54 PM EDT 02/16/2011 3:12 PM EDT Addy Bonilla MD HEMATOLOGY ORDERABLE S Performing Organization Address City/State/[facility] Co de Phone Number JOSE MANUEL WATSONENNIUM * (ABNORMAL) TSH (02/16/2011 1:54 PM EDT) Thyroid Stimulating Hormone 4.71(H) 0.27 - 4.20 mcIU/mL CERNER MILLENNIUM Blood specimen (specimen) 02/16/2011 1:54 PM EDT 02/16/2011 3:12 PM EDT Addy Bonilla MD CHEMISTRY ORDERABLES Performing Organization Address City/[facility] Co de Phone Number JOSE MANULE IGLESIAS documented in this encounter Visit Diagnoses Diagnosis Anxiety Anxiety state, unspecified Weight gain Abnormal weight gain documented in this encounter Care Teams Type Copyist Relationship Specialty Start Date End Date Addy Bonilla MD [facility] [place] [address] PCP - General 02/10/11 08/02/11 documented as of this encounter
--- OUTSIDE RECORDS SUMMARY | 2024-05-22 19:45 | XMS_ITS | Encounter Summary ---
Author Organization [facility] [place] [address] Care Team Providers Care Corporate Quality Engineer Name Role Phone Sandro Castano MD Primary Care Provider Encounter Details Date Type Department Care Team (Late st Contact Info) Description 05/02/2010 [place] [address] Antoine Kim MD [facility] [address] [place] [address] Social History Tobacco Use Types Packs/Day Years Used Date Smoking Tobacco: Never Assessed Sex and Gender Information Value Date Recorded Sex Assigned at Not on file Gender Identity Not on file Sexual Orientation Not on file documented as of this encounter Plan of Treatment Not on file documented as of this encounter Procedures Procedure Name Priority Date/Time Associated Diagnosis Comments ABSCESS/WOUND ASPIRATE CULTURE Routine 05/03/2010 1:40 AM EDT DIFFERENTIAL, AUTOMATED STAT 05/02/2010 10:10 PM EDT CREATININE STAT 05/02/2010 10:10 PM EDT CBC (WITH DIFF) STAT 05/02/2010 10:10 PM EDT BUN STAT 05/02/2010 10:10 PM EDT ELECTROLYTES PANEL STAT 05/02/2010 10 :10 PM EDT documented in this encounter Results * WOUND ASPIRATE/ABSCESS CULTURE (05/03/2010 1:40 AM EDT) Abscess/Wound Aspirate Culture ? Patient Name: ARIA GRACIA ?Ordered By: ANTOINE KIM ? MR#: [id number] ?LOC: ??ED ? /Sex: ??1980 (29 years), ? Female ? PROCEDURE: Wound Aspirate/Abscess Culture ?SOURCE: Fluid ? COLLECTED: 05/03/2010 01:40 ? BODY SITE: Right Ear ? STARTED: 05/03/2010 07:52 ? STAINS / PREPARATIONS ? Gram Stain Report ? Verified:05/03/20 10 09:07 ? No WBC's seen. ? Many Gram Negative Rods seen ? FINAL REPORT ? Final Report ? Verified:05/06/20 10 09:41 ? Many Pseudomonas aeruginosa ? Moderate Staphylococcus aureus ? PRELIMINARY REPORT ? Preliminary Report ? Verified:05/05/20 10 10:06 ? Many Pseudomonas aeruginosa ? Moderate Staphylococcus aureus ? SUSCEPTIBILITY RESULTS ? Pseudomonas aeruginosa ?JUAN Interp ? Aztreonam ?S ? Ceftazidime ?S ? Ceftriaxone ?I ? Ciprofloxacin ?S ? Gentamicin ? I ? Meropenem ?S ? Piperacillin ? S ? Piperacillin/Tazo bactam ?S ? Tobramycin ? S ? Patient: BENEDICT, ARIA C ? MR#: [id number] ? Staphylococcus aureus ? ____ ?JUAN Interp ? Ceftriaxone ?S ? Ciprofloxacin ?S ? Gentamicin ? S ? Meropenem ?S ? Ampicillin ? R ? Cefazolin ?S ? Clindamycin ?S ? Erythromycin ? S ? Moxifloxacin ? S ? Oxacillin ?S ? Penicillin(1) ?R ? Trimethoprim/Sulf a ? S ? Tetracycline ? S ? Vancomycin ? S ? S=Susceptible ??I=Intermediate ??R=Resistant ??NA=Not Applicable ? DDS=Dose dependent-suscept ible ??NS=Non-suscepti ble ? FOOTNOTES ? (1)Penicillin resistant, Nafcillin susceptible Staphylococci are resistant ? to B-lactamase labile ? Penicillins including Ampicillin and Piperacillin, but susceptible to B- ? lactamase debbie Penicillins ? (Nafcillin), B-lactamase inhibitor combinations, first and second ? generation Cephalosporins including ? Cefazolin, and to Cefepime and Meropenem. ? [facility] Fluid specimen (specimen) RIGHT EAR STRUCTURE / Unknown 05/03/2010 1:40 AM EDT 05/03/2010 1:53 AM EDT Antoine Kim MD MICROBIOLOGY - GENER AL ORDERABLES Performing Organization Address City/[facility] Co de Phone Number CERNARAYAN MILLENNIUM * (ABNORMAL) ELECTROLYTE PANEL (05/02/2010 10:10 PM EDT) Sodium 139 135 - 145 mmol/L CERNER MILLENNIUM Potassium 3.4(L) 3.5 - 5.0 mmol/L CERNER MILLENNIUM Comment: Please note: ??Patients with WBC >100,000 may have falsely elevated Potassium levels. ??For accurate Potassium quantification in these patients send serum separator tube (gold top) for subsequent determinations. ??Contact the Clinical Chemistry Laboratory if there are any questions. Chloride 103 98 - 107 mmol/L CERNER MILLENNIUM Carbon Dioxide 29 22 - 31 mmol/L CERNER MILLENNIUM Anion Gap 7 5 - 15 mmol/L CERNER MILLENNIUM Blood specimen (specimen) 05/02/2010 10:10 PM EDT 05/02/2010 10:21 PM EDT Antoine Kim MD CHEMISTRY ORDERABLES Performing Organization Address [facility] de Phone Number CERNARAYAN WATSONENNIUM * CREATININE, SERUM (05/02/2010 10:10 PM EDT) Creatinine 0.74 0.70 - 1.20 mg/dL CERNER MILLENNIUM Est Glomerular Filtration Rate >60 >=60 CERNER MILLENNIUM Comment: The National Kidney Disease Education Program (NKDEP) has recommended all laboratories report estimated GFR (eGFR) along with plasma creatinine measurements to assist you with recognition of early kidney disease. Caveats: ??Plasma creatinine should be at steady-state (unchanged within the past week). ??Patient age > = 18 years, and for Americans multiply eGFR by 1.2. At present, NKDEP does NOT recommend using the MDRD equation for drug dosing purposes and pharmacists should continue to use their current dosing methods. In addition, numerical eGFR values greater than 60 ml/min/1.73 square meters should be treated as > 60, and not an exact number due to greater inaccuracies at these higher values. Per NKDEP, they classify normal renal function as any GFR >60ml/min/1.73 square meters; chronic kidney disease when GFR <60, and renal failure when GFR <15. ??This calculation may not be valid for patients with atypical muscle mass (very lean or obese), acute renal failure, and in patients with diabetic kidney disease. References: http://nkdep.nih.gov/resources/NKDEP_Suggestn4Labs_0606_508.pdf http://www.kidney.org/professionals/kls/pdf/faq_gfr.pdf Blood specimen (specimen) 05/02/2010 10:10 PM EDT 05/02/2010 10:21 PM EDT Antoine Kim MD CHEMISTRY ORDERABLES Performing Organization Address City/[facility] Co de Phone Number JOSE MANUEL WATSONENNIUM * BUN (05/02/2010 10:10 PM EDT) Blood Urea Nitrogen 10 8 - 18 mg/dL CERNER MILLENNIUM Blood specimen (specimen) 05/02/2010 10:10 PM EDT 05/02/2010 10:21 PM EDT Antoine Kim MD CHEMISTRY ORDERABLES Performing Organization Address [facility] Co de Phone Number CERNARAYAN DUMONTIUM * (ABNORMAL) REFLEX LAB-A-DIFF (05/02/2010 10:10 PM EDT) Neutrophil % 68.7 34.0 - 71.0 % CERNER MILLENNIUM Neutrophil Absolute 7.57(H) 1.50 - 6.30 x10(3)/mc L CERNER MILLENNIUM Lymph % 15.4(L) 19.0 - 53.0 % CERNER MILLENNIUM Lymphocytes Abs 1.7 1.0 - 3.6 x10(3)/mc L CERNER MILLENNIUM Monocyte % 13.3(H) 4.0 - 13.0 % CERNER MILLENNIUM Monocyte Abs 1.5(H) 0.2 - 1.0 x10(3)/mc L CERNER MILLENNIUM Eos % 2.1 0.0 - 7.0 % CERNER MILLENNIUM Eosinophils Abs 0.2 0.0 - 0.5 x10(3)/mc L CERNER MILLENNIUM Basophil % 0.3 0.0 - 2.0 % CERNER MILLENNIUM Baso Absolute 0.0 0.0 - 0.2 x10(3)/mc L CERNER MILLENNIUM Immature Gran % 0.20 0.00 - 0.66 % CERNER MILLENNIUM Comment: Immature granulocytes(IG's)percentage and absolute count will include metamyelocytes, myelocytes, and promyelocytes. Blood smears from CBC's yielding IG's will be scanned manually for concordance. If this scan disagrees with the automated IG or if promyelocytes are noted, a manual differential will be performed. Immature Gran Absolute 0.02 0.00 - 0.05 x10(3)/mc L CERNER MILLENNIUM Blood specimen (specimen) 05/02/2010 10:10 PM EDT 05/02/2010 10:21 PM EDT Antoine Kim MD HEMATOLOGY ORDERABLE S JOSE MANUEL WATSONENNIUM * (ABNORMAL) CBC (05/02/2010 10:10 PM EDT) White Blood Cell 11.0(H) 4.0 - 10.0 x10(3)/mc L CERNER MILLENNIUM Red Blood Cell 4.71 3.93 - 5.22 x10(6)/mc L CERNER MILLENNIUM Hemoglobin 13.6 11.2 - 15.7 gm/dL CERNER MILLENNIUM Hematocrit 41.1 34.0 - 45.0 % CERNER MILLENNIUM Mean Cell Volume 87.3 79.0 - 94.0 fL CERNER MILLENNIUM Mean Cell Hemoglobin 28.9 26.6 - 32.2 pg CERNER MILLENNIUM Mean Cell Hemoglobin Concentration 33.1 32.0 - 36.5 gm/dL CERNER MILLENNIUM Platelet 276 145 - 370 x10(3)/mc L CERNER MILLENNIUM RDW Standard Deviation 39.7 35.0 - 46.0 fL CERNER SHIRLEYENNIUM RDW coefficient of variation 12.4 10.9 - 14.4 % [facility] MILL[facility]NI[facility] Mean Platelet Volume 10.5 9.0 - 12.0 fL [facility] SHIRLEY[facility] Blood specimen (specimen) 05/02/2010 10:10 PM EDT 05/02/2010 10:21 PM EDT Antoine Kim MD HEMATOLOGY ORDERABLE S [facility] documented in this encounter Visit Diagnoses Not on filedocumented in this encounter Care Teams Corporate Quality Engineer Relationship Specialty Start Date End Date Sandro Castano MD [phone] [address] PCP - General 05/25/10 02/09/11 documented as of this encounter
--- OUTSIDE RECORDS SUMMARY | 2024-05-22 19:45 | XMS_ITS | Encounter Summary ---
Author Organization [facility] [place] [address] Care Team Providers Care Heavy Repairer Name Role Phone Addy Bonilla MD Primary Care Provider [phone] Reason for Referral * Consultation (Routine) - Complete - Unable to Contact Patient Specialty Diagnoses / Procedures Referred By Tonia argueta Referred To Contact Nutrition / Family Medicine Diagnoses Obesity Sara Martell [facility] [place] [address] [facility] [place] [address] Referral ID Status Reason Start Date Expiration Date Visits Requested Visits Authorized [id number] Complete - Unable to Contact Patient Continuity of Care 03/16/2011 09/12/2011 1 1 Reason for Visit * Reason Comments Anxiety Weight Gain Encounter Details Date Type Department Care Team (Late st Contact Info) Description 03/16/2011 1:00 PM EDT Follow-Up Family [facility] [place] [address] [facility] [place] [address] Anxiety (Primary Dx); Obesity; Weight gain; Hypothyroidism Discharge Disposition: Home Social History Tobacco [...] Sign Reading Time Taken Comments Blood Pressure 116/77 03/16/2011 12:55 PM EDT Pulse 96 03/16/2011 12:55 PM EDT Temperature 36.9 ??C (98.4 ??F) 03/16/2011 12:55 PM E DT Respiratory Rate 20 03/16/2011 12:55 PM EDT Oxygen Saturation - - Inhaled Oxygen Concentration - - Weight 92.8 kg (204 lb 9.6 oz) 03/16/2011 12:55 PM EDT Height - - Body Mass Index 35.12 02/16/2011 1:00 PM EDT documented in this encounter Progress Notes * Sara Martell APRN - 03/16/2011 1:51 PM EDT PCP: ADDY BONILLA MD Seen by: Sara Martell APRN CC: f/u on depression/anxiety HPI: 1) Anxiety/depression: Aria Figueroa is a 30 y.o. year old female who presents for f/u on depression and anxiety. She had been on prozac for 3yrs, but needed to change her dose 7 months ago. She experienced weight gain (30lbs in 6 mo) while taking the Prozac, felt appetite was increased, particularly after increasing dose of Prozac. Was switched to effexor last month. She describes the difference as night and day, and is managing her sx much more successfully, she is wondering about increasing the dose to 150mg. Pt's has been [place] of the [place] 2 yrs due to paperwork issues, pt feels this is a big contributor to her sx. 2) Hypothyroidism: dx made a month ago. Pt placed on Levothyroxine. No changes in sx except for lower threshold for sweating. 3) early night insomnia: has been improving as of last month, does not need medication and is currently under control. 4) weight gain - worse when on Prozac, has still had some weight gain on Effexor. Pt used to exercise 1.5 hrs, 3 times/week, but has stopped for 4 mo alliance party due to her moving and having a new job. Interested in nutrition consult. Pt also requested to schedule a pap smear and prescription refills for Levothroxine and Effexor. ROS: Const - no fever chills HEENT - no headaches sore throat Resp - no SOB CV - GI - No N/V/C/D - Derm - Physical Exam GEN: Alert and oriented, in no acute distress NECK: supple, no lymphadenopathy or thyromegaly RESP: Breathing even and nonlabored, Lungs clear to auscultation bilaterally, no wheeze, crackles or rhonchi CV: RRR, normal S1 and S2, no murmurs, gallops or rubs PSY: mood stable and reactive, affect full and congruent with mood GINO-7 0=not at all, 1=several days, 2=more than half the days, 3=nearly every day Over the last 2 weeks, how often have you been bothered by the following problems: 1. Feeling nervous, anxious or on edge: 1 2. Not being able to stop or control worryin 3. Worrying too much about different things: 1 4. Trouble relaxin 5. Being so restless that it is hard to sit still: 1 6. Becoming easily annoyed or irritable: 1 7. Feeling afraid as if something awful might happen: 1 Total score: 7 down from 17 Score: 5-9=mild; 10-14=moderate; 15-21=severe. How difficult have these problems made it for you to do your work, take care of things at home, or get along with other people? x Not at all, somewhat, very, extremely difficult PHQ-9 0=not at all, 1=several days, 2=more than half the days, 3=nearly every day Over the last 2 weeks, how often have you been bothered by the following problems? A) Little interest in doing things: 0 B) Feeling down depressed or hopeless: 0 C) Trouble falling asleep, sleeping too much: 2 D) Feeling tired or having little energy: 1 E) Poor appetite or overeatin F) Feeling bad about yourself-or that you are a failure or have let yourself or family down: 1 G) Trouble concentrating on things, such as reading the newspaper or watching TV: 0 H) Moving or speaking so slowly that other people could have noticed. Or the opposite-being so fidgety or restless that you have been moving around a lot more than usual: 0 I) Thoughts that you would be better off or of hurting yourself in some way: 0 Scored: 6 down from 15 Score: 5-9=mild; 10-14=moderate; 15-19=moderately severe; >=20 severe >= 10 likely major depression Problems above have made it difficult to do work, take care of things at home, or get along with other people: Not at all, somewhat, very, extremely difficult. Assessment and Plan 1) Anxiety and depression: pt has been improving with the effexor and asked to double her prescription form 75mg/day to 150. Her GINO/PHQ-9 scores have significantly improved. Plan: increase dose to 150mg/day for 1 mo, and ask pt to report back in the case of side effects 2) Insomnia: pt has early night insomnia, it has been improving with concurrent management of her anxiety and depression. She feels that her sx are manageable. Plan: wait and watch, may consider sleep aid if sx persist 3) Hypothyroidism and weight gain: pt has been dx with hypothyroidism, and experienced weight gain for the past 6 mo. These are likely related. Although, the weight gain can also be d/t dietary changes and lack of exercise Plan: 1) refer pt to a cloth designer 2) measure TSH levels in 1 month. 4) Health Maintenance - Plan: schedule an annual physical exam with Pap in 1 month Patient understands and agrees with plan documented in this encounter Plan of Treatment Scheduled Referrals Name Type Priority Associated Diagnoses Orde r Schedule REFERRAL TO NUTRITION SERVICES Outpatient Referral Routine Obesity Ordered: 03/16/2011 documented as of this encounter Visit Diagnoses Diagnosis Anxiety- Primary Anxiety state, unspecified Obesity Obesity, unspecified Weight gain Abnormal weight gain Hypothyroidism Unspecified hypothyroidism documented in this encounter Care Teams Heavy Repairer Relationship Specialty Start Date End Date Addy Bonilla MD [facility] [address] PCP - General 02/10/11 08/02/11 documented as of this encounter
--- OUTSIDE RECORDS SUMMARY | 2024-05-22 19:45 | XMS_ITS | Encounter Summary ---
[facility] [place] [address] Care Team Providers Care Buttermaker Helper Name Role Phone Sandro Castano MD Primary Care Provider [phone] Encounter Details Date Type Department Care Team (Late Contact Info) Description 05/25/2010 [place] [address] Chris Lewis PA [facility] [place] [address] Social History Tobacco Use Types Packs/Day Years Used Date Smoking Tobacco: Never Assessed Sex and Gender Information Value Date Recorded Sex Assigned at Not on file Gender Identity Not on file Sexual Orientation Not on file documented as of this encounter Plan of Treatment Not on file documented as of this encounter Procedures Procedure Name Priority Date/Time Associated Diagnosis Comments URINE CULTURE Routine 05/25/2010 4:18 PM EST documented in this encounter Results * URINE CULTURE (05/25/2010 4:18 PM EST) Urine Culture ? Patient Name: ARIA GRACIA ?Ordered By: CHRIS LEWIS ? MR#: [id number] ?LOC: ??ED ? /Sex: ??1980 (29 years), ? Female ? PROCEDURE: Urine Culture ?SOURCE: T CC ? COLLECTED: 05/25/2010 16:18 ? STARTED: 05/25/2010 16:21 ? FINAL REPORT ? Final Report ? Verified: 15:20 ? 1,000-9,000 cfu/ml Gram Negative Rods ? ___ ? ___ CERNER MILLENNIUM Urine specimen obtained by clean catch procedure (specimen) 05/25/2010 4:18 PM EST 05/25/2010 4:18 PM EST Chris WOODALL MICROBIOLOGY - GEN ERAL ORDERABLES Performing Organization Address City/State/[facility] Co de Phone Number [facility] documented in this encounter Visit Diagnoses Not on filedocumented in this encounter Care Teams Buttermaker Helper Relationship Specialty Start Date End Date Sandro Castano MD [address] [place] [address] PCP - General 05/25/10 02/09/11 documented as of this encounter
--- OUTSIDE RECORDS SUMMARY | 2024-05-22 19:45 | XMS_ITS | Encounter Summary ---
Author Organization [facility] [place] [address] Care Team Providers Care Manager Fast Food Name Role Phone Fausto De León MD Primary Care Provider [phone] Reason for Visit * Reason Onset Date Comments Results 02/17/2011 Encounter Details Date Type Department Care Team ([facility] Contact Info) Description 02/17/2011 Telephone Family [facility] [place] [address] Fausto De León MD [facility] [place] [address] Results Social History Tobacco Use Types Packs/Day Years [...] Telephone Encounter - Sara Martell APRN - 02/17/2011 3:08 PM EDT Discussed lab results - TSH elevated, recommended starting thyroid replacement tx Sent rx to pharm, recheck TSH in 2 months documented in this encounter Plan of Treatment Not on file documented as of this encounter Visit Diagnoses Diagnosis Hypothyroidism Unspecified hypothyroidism documented in this encounter Care Teams Manager Fast Food Relationship Specialty Start Date End Date Fausto De León MD [facility] [place] [address] PCP - General 02/10/11 08/02/11 documented as of this encounter
--- OUTSIDE RECORDS SUMMARY | 2024-05-22 19:45 | XMS_ITS ---
[facility] [place] [address] Care Team Providers Care Rental Sales Agent Name Role Phone Nadine Mcduffie MD Primary Care Provider [phone] Multiple Sclerosis Status:Under Review (Enrolling) Start date:05/20/2024 Enrollment reason:Under Review - Pending Appeal Linked medications:ofatumumab (Active) Linked problems:Multiple sclerosis (Active) Continued Care and Services Coordination
--- OUTSIDE RECORDS SUMMARY | 2024-05-22 19:45 | XMS_ITS | Encounter Summary ---
Author Organization [facility] [place] [address] Care Team Providers Care Cardiopulmonary Physical Therapist Name Role Phone Fausto De León MD Primary Care Provider [phone] Reason for Visit * Reason Onset Date Comments Other 03/25/2011 TRIAGE Encounter Details Date Type Department Care Team ([facility] Contact Info) Description 03/25/2011 Telephone [facility] [place] [address] Fausto De León MD [facility] [place] [address] Other (TRIAGE) Social History Tobacco Use Types Packs/Day Years [...] Miscellaneous Notes * Telephone Encounter - Cari Khalil RN - 03/25/2011 11:49 AM EDT S: Aria calls to report that she is eight days late for menstrual cycle. O: 03/17/11 one day of heavy flow ~face is breaking out ~ breast tenderness ~mood swings ~ sexual intercourse without protection ~ neg otc test x3 On Effexor, thyroid medication A: Altered menstrual pattern P: Discuss with provider for recommendations - recommend that she make appt for next week as pe is currently due - can evaluate at that time. * Telephone Encounter - Quynh Bingham - 03/25/2011 11:13 AM EDT Request to speak with a nurse regarding symptoms she's having. Please call [phone] and ask surinder documented in this encounter Plan of Treatment Not on file documented as of this encounter Visit Diagnoses Not on filedocumented in this encounter Care Teams Cardiopulmonary Physical Therapist Relationship Specialty Start Date End Date Fausto De León MD [facility] [place], [place] [id number] PCP - General 02/10/11 08/02/11 documented as of this encounter
[2024-05-22 20:39] VITALS: BP 135/61; PULSE 66; RESP 16; O2SAT 96
--- NOTE | 2024-05-22 20:47 | DI.VRAD_ITS ---
PROCEDURE INFORMATION: Exam: XR Right Knee Exam date and time: 05/22/2024 7:52 PM Age: 43 years old Clinical indication: Pain; Knee; Right; Additional info: R knee pain TECHNIQUE: Imaging protocol: Radiologic exam of the right knee. Views: 3 views. COMPARISON: CR XR foot RT complete 05/03/2018 8:52 AM FINDINGS: Bones/joints: No fracture or other osseous abnormality. Joint spaces are well preserved. No significant effusion. No varus or valgus angulation. Soft tissues: Normal. IMPRESSION: Normal knee. Dictated and Authenticated by: Daryn Aguilar MD. Ordering:JADON Ross MD
[2024-05-22 21:13] VITALS: BP 137/78; PULSE 81; RESP 16; O2SAT 97
--- NOTE | 2024-05-25 13:54 | NUR.NOTE ---
Nursing Note: Received call that pts knee brace is too large now that the swelling has gone down. Pt was instructed she could buy one OTC that is tighter or return and we could trim the bulky fabric for a better fit (knee immobilizer). Verbalized understanding
== END 2024-05-22 21:20 | disposition home or self-care (01) ==
PROVIDERS: Emergency Provider Physician Assistant; PCP Family Medicine
DX: M25.561 Pain in right knee (principal); M25.571 Pain in right ankle and joints of right foot; G35 Multiple sclerosis
CPT/HCPCS: 29505; 73562; 99283

== ENCOUNTER 2025-05-02 15:18 | Outpatient (REF) | payer OTHER, SELFPAY ==
[2025-05-02 22:12] LABS: TSH (W/Ref FT4) 4.32 uIU/mL (0.36-3.74)
== END 2025-05-02 15:19 | disposition home or self-care (01) ==
LOC: NCHCN 15:18
PROVIDERS: PCP Family Medicine; Visit Provider Family Medicine
DX: E03.9 Hypothyroidism, unspecified (principal)
CPT/HCPCS: 84439; 84443